=== PATIENT | female | born 1935 | race Caucasian/White ===

== ENCOUNTER 2018-11-14 15:54 | Emergency (ER) | payer MEDICARE, SELFPAY ==
[2018-11-14 15:56] VITALS: BP 216/90; PULSE 85; RESP 17; TEMP 36.7; O2SAT 99; BMI 28.1
--- NOTE | 2018-11-14 16:18 | EKG12_ITS ---
Test Reason : HYPERTENSON Blood Pressure : / mmHG Vent. Rate : 073 BPM Atrial Rate : 073 BPM P-R Int : 182 ms QRS Dur : 074 ms QT Int : 374 ms P-R-T Axes : 052 008 035 degrees QTc Int : 412 ms Normal sinus rhythm Nonspecific ST abnormality Abnormal ECG Confirmed by CECILIO ISIDRO ([id number]), brands editor YOKO BONILLA ([id number]) on 11/15/2018 1:27:44 PM Referred By: KRISTAN Confirmed By:CECILIO ISIDRO
--- NOTE | 2018-11-14 16:19 | ED.DCSUM_ITS ---
History of Present Illness Chief Complaint: Hypertension Informant: Patient Onset: Weeks - 2 Narrative: Referred from PCP office for elevated blood pressure, high as 237/94 in the office. Multiple checks over 220 systolic over 80s. Reports today's visit for his recheck blood pressure, seen 2 weeks ago noted blood pressures elevated. She is on 50 mg twice daily metoprolol for history of A. fib, she had losartan 100mg started 2 weeks ago she has been taking daily. No recent vomiting or diarrhea. States over the past 2 weeks noted mild twinges in her chest. Denies specific pain. No dyspnea. No headache. Reports 3 years ago a similar elevation in blood pressure, she reports in them have an UT in the evening when she developed back pain and then chest pain. She has history of 3 stents placed in [place]. Also reports magnesium was added couple weeks ago due to cramping in the legs. Prior similar symptoms: Yes Past Medical History - Allergies and Home Meds Allergies/Adverse Reactions: Allergies codeine Adverse Reaction (Verified 11/14/18 15:55) Nausea lisinopril Adverse Reaction (Verified 11/14/18 15:55) Other Primary Care Physician: Whitney Quarles MD [Primary Care Provider] - Surgical History: - - PCI x 3, Hysterectomy, BL JAYSHREE for cysts, Appendectomy, Recent nasal surgery/cauterization. Smoking Status: Former smoker - Family History Maternal Family History: Reports: Diabetes, Heart Disease Paternal Family History: Reports: Diabetes, Heart Disease, Hypertension Review of Systems General: Denies: Chills, Fever, Sweats Eyes: Denies: Visual changes - bilaterally, Diplopia ENT: Denies: Rhinorrhea, Sore throat Cardiovascular: Denies: Chest pain, Palpitations Respiratory: Denies: Dyspnea, Cough, Dyspnea on exertion Gastrointestinal: Denies: Abdominal pain, Nausea, Vomiting, Diarrhea, Melena, Hematochezia Genitourinary: Denies: Dysuria, Hematuria, Frequency Musculoskeletal: Denies: Back pain, Extremity Pain Skin: Denies: Rash, Wounds Neurological: Denies: Headache, Weakness, Numbness Physical Exam Vital Signs/Narrative: Vital Signs Temp Pulse Resp BP Pulse Ox 11/14/18 15:56 98.0 F 85 17 216/90 H 99 Inital Vital Signs reviewed: Yes General: Well nourished, Well developed, No Acute Distress Head: Normocephalic, Atraumatic Eyes: Perrl, EOMI ENT: Moist mucous membranes, No rhinorrhea Neck: Supple, Nontender Cardiovascular: Regular rate, Regular rhythm, No murmurs Respiratory: No distress, CTA bilaterally, Chest nontender Abdomen: Soft, Nontender, Nondistended, Normal bowel sounds Back: Nontender, Normal Inspection Extremities: Nontender, No edema Skin: Normal color, No rash Neurological: Alert, Oriented x3, Cranial nerves II-XII grossly intact, Normal Strength, Normal Sensation Psychological: Normal affect, Normal Mood Diagnostic/Tx/Re-eval Chest X-Ray - ED: 1 View, Read by ED Physician, Read by Radiologist, No Acute Disease Abnormal Lab Results 11/14/18 11/14/18 11/14/18 16:29 16:29 17:05 WBC 8.9 RBC 4.22 Hgb 13.0 Hct 40.4 MCV 95.7 MCH 30.8 MCHC 32.2 RDW 13.8 RDW Differential 48.2 H Plt Count 214 MPV 11.3 Immature Gran % (Auto) 0.100 Neut % (Auto) 52.1 Lymph % (Auto) 36.7 [place] % (Auto) 8.0 Eos % (Auto) 2.9 Baso % (Auto) 0.2 Absolute Neuts (auto) 4.7 Absolute Lymphs (auto) 3.27 Total Counted Not Reportable Sodium 139 Potassium 3.9 Chloride 106 Carbon Dioxide 27.0 Anion Gap 6 BUN 22 H Creatinine 1.55 H Estim Creat Clear Calc 20.75 Est GFR (MDRD) Af Amer 41 L Est GFR (MDRD) Non-Af 34 L BUN/Creatinine Ratio 14.2 Glucose 127 H Calcium 9.1 Magnesium 2.0 Troponin I < 0.015 Urine Color Straw Urine Clarity Clear Urine pH 8.0 Ur Specific [place] 1.010 Urine Protein 30 H Urine Glucose (UA) Normal Urine Ketones Negative Urine Occult Blood Negative Urine Nitrite Negative Urine Bilirubin Negative Urine Urobilinogen Normal Ur Leukocyte Esterase Negative Urine RBC 0 SEEN Urine WBC 0-5 SEEN Ur Squamous Epith Cells 0 SEEN Urine Bacteria 0 SEEN Urine Mucus 0 SEEN - EKG Initial EKG Interpretation: Sinus Rhythm - Sinus rate of 73. No ST changes. Nonspecific T wave inversion in lead III. - Medical Decision Making Patient currently asymptomatic. During my eval blood pressure was 240/90. Currently meeting accelerated hypertension. Work-up initiated to rule out any hypertensive emergency. She will be given labetalol IV for elevated blood pressure. With IV blood pressure medications, blood pressure slowly trended down, initial evaluation at 1735 was 190/76, continued checking with down to 169/71, then 175/75. Creatinine returned at 1.55, last creatinine in the system was 3 years ago 0.94. Urine no slight proteins. Normal hemoglobin, negative chest x-ray. Patient remains asymptomatic. Patient blood pressure improving, however creatinine at 1.55, losartan will be contraindicated at this time, unclear of her baseline due to no labs in the system she reports that it is performed as an outpatient. Discussed possibility that medication is not working due to her creatinine. She responded well to the beta-mia, she has been on her metoprolol up to 100 mg in the past however decreased due to losing weight. Her heart rate is in the 80s. However with her trending down blood pressure now in the 175/75, plan was to increase her metoprolol to 75 mg twice daily. She will likely need to go up to 100 mg however due to acute elevated blood pressure, I do not want to aggressively drop her blood pressure at this point. She has an appointment in 3 days with office. There was multiple calls out to covering physician to try to update plan of care however no callback. Patient will keep her follow-up in 3 days. 1929: Prior to discharging the patient, Dr. Shen did return call. Update on the findings. She reports in March last year creatinine was 0.94. This likely from decreased oral intake. Patient will increase her oral intake. She agrees with plan of care of stopping her losartan. She will go up on her metoprolol to 75 mg twice daily. ED Disposition - Plan for ED Patient: Disposition: Home or Assisted Living Diagnosis: Hypertension Instructions: HYPERTENSION, Established Prescriptions: Metoprolol Tartrate 75 mg PO BID #30 tablet Referrals: Whitney Quarles MD [Primary Care Provider] - Keep [place] appointment Additional Instructions: Creatinine 1.55 today. Recheck by your office on your visit. Go up on your met oprolol to 75 mg twice a day. You may split your other half to take a total of 75 mg at this time. Keep your appointment in 3 days. I did discuss with Dr. Tal[place]as your plan of care. Increase your oral hydration at home. Blood pressure systolic 220 over 90s on arrival, after labetalol, now down to 175/75.
--- NOTE | 2018-11-14 16:25 | RAD_ITS ---
STUDY: X-RAY CHEST REASON FOR EXAM: Female, 83 years old. Hypertension TECHNIQUE: Frontal view of the chest COMPARISON: 06/20/2015 FINDINGS: The lungs are clear. There are no pleural effusions. There is no pneumothorax. The heart is normal in size. The visualized osseous structures are within normal limits. RAD/Chest 1 View (Portable) IMPRESSION: No acute thoracic pathology. Electronically Signed: Solo Cueva, at 16:49 EDT Tel , Service support ,
[2018-11-14 16:57] LABS: Anion Gap 6 (5-15); BUN 22 mg/dL (7-18); BUN/Creat Ratio 14.2 RATIO (10-20); Calcium,Total 9.1 mg/dL (8.5-10.1); Chloride 106 mmol/L (98-107); Creatinine, Serum 1.55 mg/dL (0.55-1.02); EST Glomerular Filtration Rate 34 mL/min (>60); Est Glom Filt Rate - Afr Amer 41 mL/min (>60); Estimated Creatinine Clearance 20.75 ml/min; Glucose 127 mg/dL (74-106); Potassium 3.9 mmol/L (3.5-5.1); Sodium Level 139 mmol/L (136-145)
[2018-11-14 17:16] VITALS: BP 212/72; PULSE 90; RESP 19; O2SAT 99
[2018-11-14 17:16] LABS: Bacteria 0 SEEN /hpf (None Seen); Mucous, Urine 0 SEEN /hpf (<or=2+); Red Blood Cells-Urine 0 SEEN /hpf (0-5); Squamous Epithelial Cells - UA 0 SEEN /hpf (5-10)
[2018-11-14 17:38] VITALS: BP 190/76; PULSE 80; RESP 13; O2SAT 98
[2018-11-14 17:42] LABS: Color, Urine Straw (Yellow); Glucose, Dipstick Normal (Normal); Ketone-Dipstick Negative (Negative); Leukocyte Esterase-Dipstick Negative /ul (Negative); Nitrite-Dipstick Negative (Negative); Occult Blood-Urine Negative /ul (Negative); Protein-Dipstick 30 mg/dl (Negative); Urine Bilirubin Dipstick Negative (Negative); Urine Clarity Clear (Clear); Urine Urobilinogen Normal (Normal)
[2018-11-14 18:00] LABS: White Blood Cells 0-5 SEEN /hpf (0-5)
--- NOTE | 2018-11-14 18:15 | CASEMGMT ---
RN CM Assessment Introduced role of RN CM to patient, patient Franki and two daughters at bedside.? Patient is alert, oriented and able?to participate in RN CM Assessment. ?Care providers, pharmacy, and demographics verified. Presentation: Referred from PCP office for elevated BP, as high as 237/94 in office. C/o past two weeks with twinges in chest. Re-Admit: No Barriers/Issues: None PCP: Whitney Quarles Specialists: ENT- Dr Nava, Cardio- Was seeing Dr Whipple, [facility] will need to establish a new [facility]. Preferred Pharmacy: [facility] Insurance: [employer] Benefit:?Yes LNOK: Franki Sweet LW/HPOA: [facility] has both HPOA & LW, HPOA- Franki Sweet Living Arrangements:?Lives with her in a SS Home, 1 step to enter home. ADL?s: Independent with ambulation and ADL's Transportation: Patient drives, drove self to the hospital and plans on driving on [place]. Family able to transport home if needed. DME: None HHC: None SNF: None Goal: Home, does not think will have any needs. Denies any issues,concerns, or questions at this time. DC PLAN: Home with no anticipated needs identified at this time. Cm remains available for any emerging needs. CAROLINA Bagley
[2018-11-14 18:28] LABS: Absolute Lymphocyte Count 3.27 X10^3/ul (0.83-4.51); Absolute Neutrophil Count 4.7 X10^3/uL (2.0-7.7); Basophil# 0.02 X10^3/uL; Basophil% 0.2 % (0-1); Eosinophil# 0.26 X10^3/uL; Eosinophils% 2.9 % (0-5); Hematocrit 40.4 % (37-47); Lymphocyte # 3.27 X10^3/ul (4.0); Lymphocyte % 36.7 % (19-41); Mean Corp Hgb Conc 32.2 g/gl (32-36); Mean Corpuscular Hgb 30.8 pg (27.0-32.0); Mean Corpuscular Volume 95.7 fL (81-99); Mean Platelet Vol. 11.3 fl (6.2-12.0); Monocyte# 0.71 X10^3/uL; Neutrophil # 4.65 X10^3/uL (2.7-7.7); Neutrophil % 52.1 % (47-70); Platelet Count 214 K/mm3 (150-450); RBC Distribution Width CV 13.8 % (11.6-14.6); RBC Distribution Width SD 48.2 fl (35.1-43.9); Red Blood Count 4.22 M/mm3 (4.2-5.4); White Blood Count 8.9 K/mm3 (4.4-11.0)
[2018-11-14 18:32] LABS: POSITIVE COUNT NO; POSITIVE DIFFERENTIAL NO; POSITIVE MORPHOLOGY NO
[2018-11-14 19:18] VITALS: BP 177/75; PULSE 79; RESP 18; O2SAT 92
== END 2018-11-14 19:42 | disposition home or self-care (01) ==
PROVIDERS: Emergency Provider Emergency Medicine; Family Provider Internal Medicine; PCP Internal Medicine
DX: I10 Essential (primary) hypertension (principal); I48.91 Unspecified atrial fibrillation; Z79.82 Long term (current) use of aspirin; Z79.899 Other long term (current) drug therapy; Z87.891 Personal history of nicotine dependence; Z82.49 Family history of ischemic heart disease and other diseases of the circulatory system
CPT/HCPCS: 71045; 80048; 81001; 83735; 84484; 85025; 93005; 96374; 99283; A4216

== ENCOUNTER → 2019-03-06 12:42 | Outpatient (CLI) | payer MEDICARE, SELFPAY ==
[2019-02-08 16:12] VITALS: BMI 28.0
--- NOTE | 2019-03-06 12:44 | ECHOD_ITS ---
Reason For Study: Murmur Procedure This was a 2D Doppler, Color Flow transthoracic echocardiogram. The exam was of adequate technical quality. Exam performed in department. Left Ventricle Normal LV size. Left ventricular systolic function is normal. The estimated ejection fraction is 60 %. Transmitral diastolic flow velocities suggest moderate (stage 2) diastolic dysfunction (pseudonormal pattern). No regional wall motion abnormalities noted. Right Ventricle Normal RV size. Normal systolic function. Atria The left atrium is mildly enlarged. Normal right atrium. No doppler evidence for ASD. Mitral Valve There is mild mitral annular calcification. Mild diffuse mitral valve thickening. Mild-Moderate (1- 2+) mitral valve insufficiency. Tricuspid Valve Normal tricuspid valve. Moderate (2+) tricuspid valve insufficiency. Right ventricular systolic pressure estimated to be 36 mmHg. Aortic Valve Trisinus/trileaflet aortic valve. Mild diffuse aortic valve thickening. Moderate focal aortic valve calcification. Mild aortic stenosis. Trivial aortic valve insufficiency. Pulmonic Valve The pulmonic valve is not well visualized. Mild (1+) pulmonic valve insufficiency. Great Vessels Normal sized aortic root. Pericardium/Pleural No pericardial effusion. MMode/2D Measurements & Calculations LVIDd: 4.0 cm IVSd: 0.98 cm LVOT diam: 2.0 cm LVIDs: 2.0 cm LVPWd: 0.76 cm LVOT area: 3.2 cm2 RVDd: 2.4 cm FS: 50.7 % Ao root diam: 3.3 cm LAV(MOD-bp): 61.1 ml LA A4 area: 20.0 cm2 LA dimension: 3.8 cm LAV(MOD-bp) Indexed: 37.0 ml/m2 LAV(MOD-sp2): 60.1 ml LAV(MOD-sp4): 56.2 ml RA A4 area: 14.2 cm2 Time Measurements MV dec time: 0.24 sec Doppler Measurements & Calculations MV E max pratik: 98.7 cm/sec Lat Peak E' Pratik: 8.4 cm/sec Med Peak E' Pratik: 9.7 cm/sec MV A max pratik: 87.9 cm/sec E/E' lat: 11.8 E/E' med: 10.2 MV E/A: 1.1 MV V2 max: 125.2 cm/sec MV P1/2t max pratik: 126.2 cm/sec Ao V2 max: 168.2 cm/sec MV max P.3 mmHg MV P1/2t: 74.8 msec Ao max P.3 mmHg MV V2 mean: 76.1 cm/sec MV dec slope: 493.9 cm/sec2 DANIEL(V,D): 1.8 cm2 MV mean P.6 mmHg MV V2 VTI: 35.4 cm MVA(P1/2t): 2.9 cm2 AI max pratik: 422.4 cm/sec LV V1 max: 93.8 cm/sec PA V2 max: 83.5 cm/sec AI max P.4 mmHg LV V1 max P.5 mmHg AI dec slope: 277.8 cm/sec2 AI P1/2t: 445.3 msec PI end-d pratik: 124.2 cm/sec TR max pratik: 285.2 cm/sec TR max P.5 mmHg Interpretation Summary Left ventricular systolic function is normal. The estimated ejection fraction is 60 %. The left atrium is mildly enlarged. There is mild mitral annular calcification. Mild diffuse mitral valve thickening. Mild-Moderate (1-2+) mitral valve insufficiency. Moderate (2+) tricuspid valve insufficiency. Mild aortic stenosis. Trivial aortic valve insufficiency. Mild (1+) pulmonic valve insufficiency. Right ventricular systolic pressure estimated to be 36 mmHg. Transmitral diastolic flow velocities suggest diastolic dysfunction (pseudonormal pattern). Ordering Physician: Bryce Esparza Referring Physician: Whitney Quarles Performed By: Shelton Machuca RCS
== END ==
PROVIDERS: Family Provider Internal Medicine; PCP Internal Medicine; Referring Provider Internal Medicine Cardiovascular Disease; Visit Provider Internal Medicine Cardiovascular Disease
DX: I25.10 Atherosclerotic heart disease of native coronary artery without angina pectoris (principal)
CPT/HCPCS: 93306

== ENCOUNTER → 2019-06-20 06:24 | Outpatient (CLI) | payer MEDICARE, SELFPAY ==
[2019-06-12 15:54] VITALS: BMI 28.1
--- NOTE | 2019-06-20 09:49 | STRESSREP_ITS ---
Stress Test Report Date: 06-20-2019 Procedure: Exercise tolerance test/imaging study Indications: Chest pain; status post PCI/SHABNAM Consent: Per the patient Procedure: The patient exercised on a Rene protocol for 3 minutes completing Stage I achieving a peak heart rate of 125 bpm (91 % predicted maximal heart rate) with a peak blood pressure 158/70 mmHg and a peak MET capacity of 4 METs. The baseline ECG demonstrated sinus rhythm; PVCs. The peak exercise ECG demonstrated no obvious ECG changes. There were occasional PVCs pretest, during exercise, and recovery. The functional capacity was considered decreased. There was no complaint of chest discomfort during exercise or recovery. The examination was discontinued secondary to knee discomfort and dyspnea. Impression: 1. Technically adequate (percent predicted maximal heart rate greater than 85%) exercise tolerance test 2. Peak exercise ECG with no obvious ECG changes 3. There were occasional PVCs pretest, during exercise, and recovery 4. Nuclear images pending Myocardial perfusion imaging study: Technique: The patient was injected with 11.3 mCi of technetium 99m Cardiolite and subsequently rest SPECT Cardiolite nuclear imaging was obtained in the horizontal long, vertical long, and short axis views. The patient exercised on a Rene protocol for 3 minutes completing Stage I achieving a peak heart rate of 125 bpm (91 % predicted maximal heart rate) with a peak blood pressure 158/70 mmHg and a peak MET capacity of 4 METs. The patient was injected with a 33.1 mCi of technetium 99m Cardiolite and subsequently stress SPECT Cardiolite nuclear imaging was obtained in the horizontal long, vertical long, and short axis views. A gated Cardiolite study at peak stress was obtained. Interpretation: Rest and stress SPECT Cardiolite nuclear imaging status post realignment, normalization, and attenuation correction, demonstrates the appearance of relative uniform tracer uptake and myocardial perfusion appearing within normal limits. There is end systolic thickening and brightening. The gated Cardiolite study demonstrates myocardial thickening and inward wall motion. The reported LVEF is 86 %. Impression: 1. Rest and stress SPECT Cardiolite nuclear imaging demonstrate relative uniform tracer uptake and myocardial perfusion appearing within normal limits. 2. The gated Cardiolite study reports an LVEF of 86 %. This note was generated with [employer] software. It may contain incorrect words, spelling, and punctuation that were not noted in checking the note before signing.
== END ==
LOC: CVS 06:27
PROVIDERS: PCP Internal Medicine; Referring Provider Nurse Practitioner Family; Visit Provider Nurse Practitioner Family
DX: I25.10 Atherosclerotic heart disease of native coronary artery without angina pectoris (principal); I48.0 Paroxysmal atrial fibrillation; Z95.5 Presence of coronary angioplasty implant and graft; E78.00 Pure hypercholesterolemia, unspecified; I10 Essential (primary) hypertension
CPT/HCPCS: 78452; 93017; A9500

== ENCOUNTER → 2019-08-01 08:49 | Outpatient (CLI) | payer MEDICARE, SELFPAY ==
[2019-06-12 15:54] VITALS: BMI 28.1
== END ==
PROVIDERS: PCP Internal Medicine; Referring Provider Nurse Practitioner Family; Visit Provider Nurse Practitioner Family
DX: R00.2 Palpitations (principal)
CPT/HCPCS: 93225; 93226

== ENCOUNTER 2019-09-26 12:25 | Inpatient (IN) | payer MEDICARE, SELFPAY ==
[2019-06-12 15:54] VITALS: BMI 28.1
[2019-09-26] VITALS (11 sets, daily range): BP systolic 150–172; BP diastolic 64–85; PULSE 66–84; RESP 16–18; TEMP 36.4–37; O2SAT 94–100; BMI 28.9; BMI 28.2
--- NOTE | 2019-09-26 12:39 | CT_ITS ---
STUDY: CT ABDOMEN AND PELVIS WITH CONTRAST REASON FOR EXAM: Female, 84 years old. RIGHT SIDED ABDOMINAL PAIN WRAPPING AROUND TO BACKPAIN. PRIOR HYSTERECTOMY,BUT NOT SURE IF THEY TOOK APPENDIX RADIATION DOSAGE (If Supplied By Facility): CTDIvol = ( 14.22 ) mGy, DLP = ( 1321.50 ) mGycm TECHNIQUE: Transaxial images were obtained from the dome of the diaphragm to the symphysis pubis with oral contrast. Oral and amp; IV GASTROGRAFIN and amp; 100ML ISOVUE 300 was administered. Sagittal and coronal images were reconstructed. Individualized dose optimization techniques were used for this CT. COMPARISON: None. FINDINGS: The visualized lung bases are unremarkable. Coronary artery calcification. Normal liver. Normal gallbladder and extrahepatic biliary system. Normal spleen. Normal pancreas. Normal bilateral adrenal glands. There is a 3.5 cm x 2.3 cm hypodensity in the midportion of the right kidney. This extends into the cortex and medulla. This may represent an old area of infarction or subacute infarction. There is also evidence of a small right renal cyst. There is a 2.1 cm cyst in the lower pole of the right kidney. There is a 1.2 cm cyst in the anterior upper pole of the left kidney. There is a small hiatal hernia. Normal small intestine. There are multiple colonic diverticula consistent with diverticulosis. There is non-visualization of the appendix. There is diffuse atherosclerotic calcification of the abdominal aorta and major visceral vessels, without a demonstrated aneurysm. Mild degree of mural thrombus of the upper abdominal aorta. Normal inferior vena cava. Normal retroperitoneum. Normal urinary bladder. There is absence of the uterus consistent with a prior hysterectomy. Normal abdominal wall. There are mild degenerative changes of the visualized lumbar spine. CT/Abdomen/Pelvis WITH Contrast IMPRESSION: Bilateral renal cysts. 3.5 cm x 2.3 cm hypodensity in the midportion of the left kidney involving both the medulla and cortex. This may represent an element of infarction. Clinical correlation is recommended. Electronically Signed: Saad Salamanca, at 15:17 EDT , Service support ,
--- NOTE | 2019-09-26 12:40 | ED.VISSUMM ---
- ER Visit Summary Date of Service: 09/26/19 Chief Complaint: [Abdominal pain] History of Present Illness: The patient is a 84 F [presents the emergency department with abdominal pain that started yesterday around 4:30 PM. Patient's had nausea with it but no vomiting. Patient's had no appetite. She denies any blood in her stool or black tarry stool. Her last bowel movement was yesterday. She denies urinary symptoms. Patient denies any fever. She is never had pain like this before. Patient states that she was unable to sleep last night secondary the pain. Patient has had prior hysterectomy however no other abdominal surgeries.] Physical Examination: [HEENT-PERRLA, EOMI. Cranial nerves II through XII grossly intact. TMs clear. Mucous membranes moist. No adenopathy. Cardiovascular-regular rate and rhythm without murmur or ectopy Lungs-clear to auscultation, chest wall stable without crepitus or subcu emphysema Abdomen-normoactive bowel sounds, soft. Patient has tenderness to palpation over the right lower quadrant as well as the right upper quadrant. There is guarding. There is no rebound, rigidity, or peritoneal signs. No masses palpated. Extremities-intact ?4, normal range of motion, normal pulses, atraumatic] Test Results: [CBC with differential obtained showed a elevated white blood cell count of 12.4, hemoglobin 14, hematocrit 43, platelet 200. Chemistries unremarkable. LFTs unremarkable other than a minimally elevated AST of 47. CT scan of the abdomen pelvis with IV and p.o. contrast ordered and results are pending] Emergency Department Course and Treatment: [Patient did not want anything for pain in the department. She had an IV line established and normal saline was started.] Treatment Plan: [Patient turned over to evening physician awaiting CT results and final disposition] Disposition: [Pending] Impression: [Abdominal pain] This note was generated with [employer] dictation software. It may contain incorrect words, spelling, and punctuation that were not noted in review of the chart prior to signing ED Disposition - Plan for ED Patient: Referrals: Whitney Quarles MD [Primary Care Provider] -
[2019-09-26] MEDS: 0.9% Normal Saline 1,000 ML 125 ML IV (13:09)
[2019-09-26 13:10] LABS: Absolute Neutrophil Count 7.7 X10^3/uL (2.0-7.7); Basophil# 0.04 X10^3/uL; Basophil% 0.3 % (0-1); Eosinophil# 0.18 X10^3/uL; Eosinophils% 1.5 % (0-5); Hematocrit 43.5 % (37-47); Hemoglobin 14.1 g/dL (12.0-15.0); Lymphocyte % 27.5 % (19-41); Mean Corp Hgb Conc 32.4 g/dL (32-36); Mean Corpuscular Hgb 31.4 pg (27.0-32.0); Mean Corpuscular Volume 96.9 fL (81-99); Mean Platelet Vol. 10.4 fl (6.2-12.0); Monocyte# 1.02 X10^3/uL; Monocyte% 8.2 % (0-10); NRBC Flagged by Analyzer 0 % (0-5); Neutrophil # 7.68 X10^3/uL (2.7-7.7); Neutrophil % 62.1 % (47-70); Platelet Count 200 K/mm3 (150-450); RBC Distribution Width CV 13.3 % (11.6-14.6); RBC Distribution Width SD 47.8 fl (35.1-43.9); Red Blood Count 4.49 M/mm3 (4.2-5.4); White Blood Count 12.4 K/mm3 (4.4-11.0)
[2019-09-26 13:26] LABS: ALB/GLOB Ratio 1.1 RATIO (0.9-2.4); AST(SGOT) 47 U/L (15-37); Alanine Aminotransfer ALT/SGPT 38 U/L (13-56); Albumin, Serum 4.1 g/dL (3.2-5.0); Alkaline Phosphatase 86 U/L (45-117); Anion Gap 6 (5-15); BUN 20 mg/dL (7-18); BUN/Creat Ratio 19.8 RATIO (10-20); Calcium,Total 9.4 mg/dL (8.5-10.1); Chloride 106 mmol/L (98-107); Creatinine, Serum 1.01 mg/dL (0.55-1.02); EST Glomerular Filtration Rate 56 mL/min (>60); Est Glom Filt Rate - Afr Amer 67 mL/min (>60); Estimated Creatinine Clearance 31.29 ml/min; Globulin 3.9 g/dL (2.2-4.2); Glucose 138 mg/dL (74-106); Potassium 3.6 mmol/L (3.5-5.1); Sodium Level 139 mmol/L (136-145)
[2019-09-26 13:33] LABS: Lactic Acid 1.4 mmol/L (0.4-1.9)
[2019-09-26 13:39] LABS: Bacteria 0 SEEN /hpf (None Seen); Mucous, Urine 0 SEEN /hpf (<or=2+); Red Blood Cells-Urine 0 SEEN /hpf (0-5); Squamous Epithelial Cells - UA 0 SEEN /hpf (5-10)
[2019-09-26 13:42] LABS: Color, Urine Yellow (Yellow); Glucose, Dipstick Normal (Normal); Ketone-Dipstick Negative (Negative); Leukocyte Esterase-Dipstick 25 /ul (Negative); Nitrite-Dipstick Negative (Negative); Occult Blood-Urine 10 /ul (Negative); Protein-Dipstick 30 mg/dl (Negative); Specific Gravity, Urine 1.005 (1.002-1.030); Urine Bilirubin Dipstick Negative (Negative); Urine Clarity Clear (Clear); Urine Urobilinogen Normal (Normal)
[2019-09-26 13:55] LABS: White Blood Cells 0-5 SEEN /hpf (0-5)
--- NOTE | 2019-09-26 15:04 | EKG12_ITS ---
Test Reason : Blood Pressure : / mmHG Vent. Rate : 081 BPM Atrial Rate : 081 BPM P-R Int : 176 ms QRS Dur : 078 ms QT Int : 382 ms P-R-T Axes : -17 008 022 degrees QTc Int : 443 ms Normal sinus rhythm Abnormal ECG Confirmed by CECILIO ISIDRO ([id number]), editor continuity and script JOHN BAZAN ([id number] on 10/01/2019 2:49:16 PM Referred By: JACKY Confirmed By:CECILIO ISIDRO
[2019-09-26 15:38] LABS: Partial Thromboplast Time 28.5 Seconds (24.1-36.2)
[2019-09-26] MEDS: Ondansetron 4 MG/2 ML Vial IV (15:44)
[2019-09-26] MEDS: Morphine 2 MG/ML Syringe IV (15:44)
--- NOTE | 2019-09-26 16:25 | HP.PCM_ITS ---
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 The patient went to pickler helper medication at the pharmacy last night and suddenly developed severe cramping abdominal pain while sitting in the car, along with right flank pain. She had this pain persistently through the night and only slept 1 hour due to pain. The pain continued so she came to the ER. In the ER she was found to have an aortic mural thrombus and right renal infarct. The patient denies hx of blood clots. She currently has no palpitations or chest pain. EKG shows NSR. 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 (Chronic) Pure hypercholesterolemia (Chronic) Diabetes mellitus type II, controlled (Chronic) PAF (paroxysmal atrial fibrillation) (Chronic) Medical History: Medical History (Last Reviewed 02/08/19 @ 16:18 by Deena Magana) Presence of stent in coronary artery (Chronic) Onset Date: ~06/20/15 Z95.5 PTCA/SHABNAM x1 to RCA and PTCA/SHABNAM x2 to LCX 06/20/15 @ [facility] Essential hypertension (Chronic) I10 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 (Chronic) I25.10 Pure hypercholesterolemia (Chronic) E78.00 Diabetes mellitus type II, controlled (Chronic) E11.9 PAF (paroxysmal atrial fibrillation) (Chronic) I48.0 History of basal cell carcinoma Z85.828 Left Nasal sidewall History of non-ST elevation myocardial infarction (NSTEMI) I25.2 Diverticulosis K57.90 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 [Ecotrin] 81 mg PO DAILY@0800 11/14/18 Atorvastatin Calcium 80 mg PO QHS 11/14/18 Magnesium Gluconate 27 mg PO DAILY 11/14/18 Vit C/Vit E AC/Lut/Copper/Zinc 1 cap PO BID 11/14/18 [Preservision Lutein Softgel] metoprolol tartrate 100 mg tablet 100 mg PO BID tab 01/31/19 losartan 25 mg tablet 25 mg PO DAILY #30 tab 06/05/19 amlodipine 10 mg tablet 10 mg PO DAILY #90 tab 08/24/19 Cholecalciferol (VIT D3) [Vitamin 1,000 unit PO DAILY 09/26/19 D] Cyanocobalamin (Vitamin B-12) 1,000 mcg PO DAILY 09/26/19 [B-12] Sulfasalazine 500 mg PO Q6H PRN PRN 09/26/19 Surgical History: Surgical History (Last Reviewed 02/08/19 @ 16:18 by Deena Magana) Presence of coronary angioplasty implant and graft Onset Date: ~06/20/15 Z95 .5 PTCA/SHABNAM x1 to RCA and PTCA/SHABNAM x2 to LCX 06/20/15 @ [facility] History of bilateral oophorectomy Z90.722 History of repair of rotator cuff Z98.890 History of total hysterectomy Z90.710 Surgical History: - - PCI x 3, Hysterectomy, BL JAYSHREE for cysts, Appendectomy, Recent nasal surgery/cauterization. 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 Lives: Spouse/ Significant Other Smoking Status: Never smoker Tobacco Use: Non-smoker Alcohol: None Drugs: None - *Family History Maternal Family History: Family History (Last Reviewed 09/26/19 @ 16:41 by OLE Clemente) Mother Hypertension Heart disease Diabetes Father Diabetes Hypertension Sister Hypertension Diabetes Sister Diabetes Hypertension Sister Diabetes Hypertension Sister Diabetes Hypertension History Items: Diabetes, Heart Disease Paternal Family History: Family History (Last Reviewed 09/26/19 @ 16:41 by OLE Clemente) Mother Hypertension Heart disease Diabetes Father Diabetes Hypertension Sister Hypertension Diabetes Sister Diabetes Hypertension Sister Diabetes Hypertension Sister Diabetes Hypertension History Items: Diabetes, Heart Disease, Hypertension Review of Systems Constitutional: Denies: Chills, Fever, Weight Change HEENT: Denies: Head Aches, Sinus Congestion, Sinus Drainage Cardiovascular: Denies: Chest Pain, Edema, Light Headedness, Palpitations, Syncope Respiratory: Denies: Cough, Shortness of Breath, Shortness of breath at rest, Sputum production Gastrointestinal: Reports: Abdominal Pain, Nausea. Denies: Diarrhea, Vomiting Genitourinary: Denies: Dysuria Musculoskeletal: Denies: Joint Pain, Joint Tenderness Skin: Denies: Rash, Wounds Neurological: Denies: Numbness, Tingling, Focal weakness Psychiatric: Denies: Anxiety, Depression, Homicidal Ideations, Suicidal Ideations Hematologic/ Lymphatic: Denies: Easy Bruising, Easy Bleeding VTE Information - Inpt Only VTE Present on Admission: No VTE Mechan Device Prophylaxis: None VTE Pharm Prophylaxis ordered?: Yes Patient Problems: Active and Suspected Problems (Last Reviewed 02/08/19 @ 16:18 by Deena Magana) Renal infarct (Acute) Aortic mural thrombus (Acute) - Physical Exam Vitals/I&O's: Vital Signs Temp Pulse Resp BP Pulse Ox 97.6 F L 71 18 158/82 H 98 09/26/19 12:26 09/26/19 14:25 09/26/19 14:25 09/26/19 14:25 09/26/19 14:25 Oxygen Delivery Method Room Air Weight: 153 lb 0.013 oz Body Mass Index (BMI) 28.9 General: Alert, Oriented x3, Cooperative HEENT: Atraumatic, PERRLA, EOMI, Normocephalic Neck: Supple, No JVD, Negative Carotid Bruits Lungs: Clear to auscultation, Normal air movement Cardiovascular: Regular rate, No murmurs Abdomen: Bowel Sounds Present, Soft, Tender - diffuse tenderness, mild, no guarding Extremities: No edema, Capillary Refill Less than 3 Seconds Skin: No rashes, No breakdown Musculoskeletal: No Tenderness to Palpation of Joints or Extremities Neurological: Cranial nerves II-XII grossly intact Psych/Mental Status: Normal Affect, Appropriate, Alert and oriented to time, tomasa ce, person, mood and affect Laboratory Results 09/26/19 13:00: WBC 12.4 H, RBC 4.49, Hgb 14.1, Hct 43.5, MCV 96.9, MCH 31.4, MCHC 32.4, RDW Std Deviation 47.8 H, RDW Coeff of Yoli 13.3, Plt Count 200, MPV 10.4, Immature Gran % (Auto) 0.400, Neut % (Auto) 62.1, Lymph % (Auto) 27.5, [place] % (Auto) 8.2, Eos % (Auto) 1.5, Baso % (Auto) 0.3, Absolute Neuts (auto) 7.7, Absolute Lymphs (auto) 3.40, Nucleated RBC % 0 09/26/19 13:00: Sodium 139, Potassium 3.6, Chloride 106, Carbon Dioxide 27.0, Anion Gap 6, BUN 20 H, Creatinine 1.01, Estim Creat Clear Calc 31.29, Est GFR (MDRD) Af Amer 67, Est GFR (MDRD) Non-Af 56 L, BUN/Creatinine Ratio 19.8, Glucose 138 H, Calcium 9.4, Total Bilirubin 0.70, AST 47 H, ALT 38, Alkaline Phosphatase 86, Total Protein 8.0, Albumin 4.1, Globulin 3.9, Albumin/Globulin Ratio 1.1 09/26/19 13:00: Lactic Acid 1.4 09/26/19 13:00: PT 13.0, INR 1.0, APTT 28.5 09/26/19 13:25: Urine Color Yellow, Urine Clarity Clear, Urine pH 7.0, Ur Specific [place] 1.005, Urine Protein 30 H, Urine Glucose (UA) Normal, Urine Ketones Negative, Urine Occult Blood 10 H, Urine Nitrite Negative, Urine Bilirubin Negative, Urine Urobilinogen Normal, Ur Leukocyte Esterase 25 H, Urine RBC 0 SEEN, Urine WBC 0-5 SEEN, Ur Squamous Epith Cells 0 SEEN, Urine Bacteria 0 SEEN, Urine Mucus 0 SEEN Current Medications Sodium Chloride () 1,000 mls @ 125 mls/hr IV .Q8H REJI Last Admin: 09/26/19 13:09 Dose: 125 mls/hr Documented by: Assessment/Plan All Active Problems (Last Reviewed 02/08/19 @ 16:18 by Deena Magana) Renal infarct (Acute) Aortic mural thrombus (Acute) 1. Acute right renal infarct, abdominal aortic mural thrombus - renal infarct per CT. upper abdominal aortic mural thrombus seen on ct as well. start lovenox BID. Hx pAfib, EKG currently with NSR. Not on OAC 2/2 hx of rectal bleed on warfarin, and hx of severe epistaxis on plavix. Monitor for bleeding. hold aspirin. Plan to transition to eliquis in AM. Renal function is good at this point, repeat BMP in am. Obtain Echo in AM. 2. CAD with prior stents - as above hold aspirin, does not take plavix due to severe epistaxis while on it in past. continue . pt follows Dr. Esparza.Continue atorvastatin, metoprolol, losartan. 3. pAfib - currently NSR. continue metoprolol. otherwise, as per #1. 4. HTN - markedly elevated in ER. Trend. Optimize pain control. 5. Hx DMt2 - she is diet controlled only. SSI while here if needed. DVT ppx: lovenox DC planning: pt is reluctant to take blood thinners with her bleeding hx. explained risk of stroke and other ischemic events due to emboli. pt generally agreeable to eliquis. This patient was seen by Georgi Mcmahon PA-C under the supervision of Dr. Shelton. 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 (Chronic) I25.10 Pure hypercholesterolemia (Chronic) E78.00 Diabetes mellitus type II, controlled (Chronic) E11.9 PAF (paroxysmal atrial fibrillation) (Chronic) I48.0 History of basal cell carcinoma Z85.828 Left Nasal sidewall History of non-ST elevation myocardial infarction (NSTEMI) I25.2 Diverticulosis K57.90 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 Macular degeneration H35.30 Allergies codeine Adverse Reaction (Verified 09/26/19 12:26) Nausea lisinopril Adverse Reaction (Verified 09/26/19 12:26) Cough Surgical History: Surgical History (Last Reviewed 02/08/19 @ 16:18 by Deena Magana) Presence of coronary angioplasty implant and graft Onset Date: ~06/20/15 Z95.5 PTCA/SHABNAM x1 to RCA and PTCA/SHABNAM x2 to LCX 06/20/15 @ [facility] History of bilateral oophorectomy Z90.722 History of repair of rotator cuff Z98.890 History of total hysterectomy Z90.710 - *Family History Maternal Family History: Family History (Last Reviewed 09/26/19 @ 16:41 by OLE Clemente) Mother Hypertension Heart disease Diabetes Father Diabetes Hypertension Sister Hypertension Diabetes Sister Diabetes Hypertension Sister Diabetes Hypertension Sister Diabetes Hypertension Paternal Family History: Family History (Last Reviewed 09/26/19 @ 16:41 by OLE Clemente) Mother Hypertension Heart disease Diabetes Father Diabetes Hypertension Sister Hypertension Diabetes Sister Diabetes Hypertension Sister Diabetes Hypertension Sister Diabetes Hypertension - Physical Exam Vitals/I&O's: Vital Signs Temp Pulse Resp BP Pulse Ox 97.6 F L 84 16 172/72 H 98 09/26/19 16:09 09/26/19 16:09 09/26/19 16:09 09/26/19 16:09 09/26/19 16:09 Oxygen Delivery Method Room Air Weight: 149 lb 4.047 oz Body Mass Index (BMI) 28.2 Laboratory Results 09/26/19 13:00: WBC 12.4 H, RBC 4.49, Hgb 14.1, Hct 43.5, MCV 96.9, MCH 31.4, MCHC 32.4, RDW Std Deviation 47.8 H, RDW Coeff of Yoli 13.3, Plt Count 200, MPV 10.4, Immature Gran % (Auto) 0.400, Neut % (Auto) 62.1, Lymph % (Auto) 27.5, [place] % (Auto) 8.2, Eos % (Auto) 1.5, Baso % (Auto) 0.3, Absolute Neuts (auto) 7.7, Absolute Lymphs (auto) 3.40, Nucleated RBC % 0 09/26/19 13:00: Sodium 139, Potassium 3.6, Chloride 106, Carbon Dioxide 27.0, Anion Gap 6, BUN 20 H, Creatinine 1.01, Estim Creat Clear Calc 31.29, Est GFR (MDRD) Af Amer 67, Est GFR (MDRD) Non-Af 56 L, BUN/Creatinine Ratio 19.8, Glucose 138 H, Calcium 9.4, Total Bilirubin 0.70, AST 47 H, ALT 38, Alkaline Phosphatase 86, Total Protein 8.0, Albumin 4.1, Globulin 3.9, Albumin/Globulin Ratio 1.1 09/26/19 13:00: Lactic Acid 1.4 09/26/19 13:00: PT 13.0, INR 1.0, APTT 28.5 09/26/19 13:25: Urine Color Yellow, Urine Clarity Clear, Urine pH 7.0, Ur Specific [place] 1.005, Urine Protein 30 H, Urine Glucose (UA) Normal, Urine Ketones Negative, Urine Occult Blood 10 H, Urine Nitrite Negative, Urine Bilirubin Negative, Urine Urobilinogen Normal, Ur Leukocyte Esterase 25 H, Urine RBC 0 SEEN, Urine WBC 0-5 SEEN, Ur Squamous Epith Cells 0 SEEN, Urine Bacteria 0 SEEN, Urine Mucus 0 SEEN Current Medications Sodium Chloride () 1,000 mls @ 125 mls/hr IV .Q8H REJI Last Admin: 09/26/19 13:09 Dose: 125 mls/hr Documented by: Assessment/Plan Hospitalist note: I am seeing this patient in conjunction with Georgi Mcmahon. I independently seen and examined the patient. History and physical, laboratory data and imaging studies reviewed and I agree with the above admission and treatment plan. Patient presented to the emergency room because of abdominal pain that started all of a sudden yesterday around 4:30 PM, mid abdominal and right flank, described as cramping, was about 7 out of 10 in severity, eased up after several minutes but was constant since then, associated with nausea and without aggravating or relieving factors. She denied fever or chills. She denied urinary symptoms, no dysuria or hematuria. She does have a history of paroxysmal atrial fibrillation, was on Coumadin for couple of years back in 2016 but was discontinued because of GI bleed and epistaxis. In the emergency department, her blood pressure was elevated, other vital signs were stable. Routine blood work was remarkable for mild leukocytosis, otherwise normal. LFT was unremarkable. Lactic acid was normal. Urinalysis showed no evidence of i nfection. CT scan abdomen and pelvis with contrast revealed 3.5 cm x 2.3 cm hypodensity in the midportion of the right kidney likely due to renal infarct and also revealed mild degree of mural thrombus of the upper abdominal aorta. - Physical Exam General: Alert, Oriented x3, Cooperative, No apparent distress. HEENT: Atraumatic, PERRLA, EOMI. Neck: Supple, No JVD, Negative Carotid Bruits, Trachea Midline, Thyroid Normal. Lungs: Clear to auscultation, Normal air movement, No rhonchi, No wheeze, No rales. Cardiovascular: Regular rate, Regular Rhythm, Normal S1, Normal S2, PMI Normal. Abdomen: Bowel Sounds Present, Soft, minimal upper abdominal and right flank tenderness, no guarding or rigidity, Non-Distended, No Hepato-splenomegaly. Extremities: No clubbing, No cyanosis, No edema Skin: No rashes, No breakdown Neurological: Cranial nerves are intact, neuro grossly intact Assessment and plan: #1 acute right renal infarct/upper abdominal mural thrombus: Likely thromboembolic secondary to paroxysmal atrial fibrillation. Patient was on anticoagulation back on 2015, was discontinued because of GI bleed and epistaxis. Currently, she is only on aspirin. EKG revealed normal sinus rhyt hm, no acute changes. [facility], start therapeutic Lovenox twice daily, 2D echocardiogram, IV fluids, IV morphine PRN for pain, OxyIR PRN for pain, IV antiemetics as needed, repeat CBC and BMP tomorrow morning. After discussion with the patient about the option of anticoagulation, patient is generally in agreement to start Eliquis by tomorrow. #2 hypertension: Elevated, likely because of pain. Plan to continue losartan, metoprolol and Norvasc, start IV adenosine PRN. #3 other chronic medical problems: Stable, continue current medications as above. This note was generated with [employer] dictation software. It may contain incorrect words, spelling, and punctuation that were not noted in checking the note before signing. Inpatient E&M: 47041 Init Hosp L3
[2019-09-26] MEDS: Enoxaparin 80 MG/0.8 ML Syringe 70 MG SC (16:44)
--- NOTE | 2019-09-26 17:36 | NURSING ---
report called to LILIAN Lowe on PCU for transfer.
--- NOTE | 2019-09-26 17:54 | ECHOD_ITS ---
Reason For Study: AFIB/FLUTTER Procedure This was a 2D Doppler, Color Flow transthoracic echocardiogram. Exam performed portable in patient room. Left Ventricle Normal LV size. The estimated ejection fraction is 65 %. Stage 2 diastolic dysfunction. No regional wall motion abnormalities noted. Right Ventricle Normal RV size. Normal systolic function. Atria The left atrium is mildly enlarged. Normal right atrium. No doppler evidence for ASD. Mitral Valve There is no mitral valve stenosis. Trivial mitral valve insufficiency. Tricuspid Valve There is no tricuspid stenosis. Mild tricuspid valve insufficiency. Pulmonary artery systolic pressure is 35-40 mmHg. Aortic Valve Trisinus/trileaflet aortic valve. Moderate diffuse aortic valve thickening. Mild aortic stenosis. No aortic valve insufficiency. Pulmonic Valve There is no pulmonic valvular stenosis. Trivial pulmonic valve insufficiency. Great Vessels Normal aortic root. Pericardium/Pleural No pericardial effusion. MMode/2D Measurements & Calculations LVIDd: 4.4 cm IVSd: 0.94 cm LVOT diam: 2.0 cm LVIDs: 2.4 cm LVPWd: 0.75 cm LVOT area: 3.1 cm2 RVDd: 3.1 cm FS: 45.8 % Ao root diam: 2.9 cm LAV(MOD-bp): 68.5 ml LA A4 area: 21.7 cm2 LAV(MOD-bp) Indexed: 41.1 ml/m2 LAV(MOD-sp2): 68.4 ml LAV(MOD-sp4): 68.5 ml LA dimension(2D): 3.8 cm RA A4 area: 13.7 cm2 Time Measurements MV dec time: 0.23 sec Doppler Measurements & Calculations MV E max pratik: 101.8 cm/sec Lat Peak E' Pratik: 7.7 cm/sec Med Peak E' Pratik: 8.0 cm/sec MV A max pratik: 111.2 cm/sec E/E' lat: 13.3 E/E' med: 12.7 MV E/A: 0.92 Ao V2 max: 210.8 cm/sec LV V1 max: 108.3 cm/sec SV(LVOT): 73.9 ml Ao max P.8 mmHg LV V1 max P.7 mmHg Ao V2 mean: 154.0 cm/sec LV V1 mean P.8 mmHg Ao mean P.3 mmHg LV V1 mean: 79.8 cm/sec Ao V2 VTI: 46.0 cm LV V1 VTI: 23.8 cm DANIEL(I,D): 1.6 cm2 DANIEL(V,D): 1.6 cm2 PA V2 max: 105.5 cm/sec PI end-d pratik: 120.5 cm/sec TR max pratik: 284.5 cm/sec TR max P.4 mmHg Interpretation Summary The estimated ejection fraction is 65 %. Stage 2 diastolic dysfunction. Trivial mitral valve insufficiency. Mild tricuspid valve insufficiency. Moderate diffuse aortic valve thickening. Mild aortic stenosis. The left atrium is mildly enlarged. Ordering Physician: Dk Shelton Referring Physician: Whitney Quarles Performed By: Laura Reina, MADELINE, RVT
[2019-09-26] MEDS: 0.9% Normal Saline 1,000 ML 75 ML IV (18:00)
[2019-09-26] MEDS: Metoprolol Tartrate 100 MG Tablet PO (21:38)
[2019-09-26] MEDS: Atorvastatin Calcium 80 MG Tablet PO (21:38)
[2019-09-27] VITALS (11 sets, daily range): BP systolic 117–148; BP diastolic 54–73; PULSE 66–86; RESP 14–18; TEMP 36.6–37.4; O2SAT 93–96
[2019-09-27] MEDS: 0.9% Normal Saline 1,000 ML 75 ML IV (06:34)
[2019-09-27] MEDS: Enoxaparin 80 MG/0.8 ML Syringe 70 MG SC (06:34)
[2019-09-27 06:54] LABS: Absolute Neutrophil Count 6.6 X10^3/uL (2.0-7.7); Basophil# 0.02 X10^3/uL; Basophil% 0.2 % (0-1); Eosinophil# 0.13 X10^3/uL; Eosinophils% 1.3 % (0-5); Hemoglobin 11.6 g/dL (12.0-15.0); Lymphocyte % 24.1 % (19-41); Mean Corp Hgb Conc 31.4 g/dL (32-36); Mean Corpuscular Hgb 30.9 pg (27.0-32.0); Mean Corpuscular Volume 98.4 fL (81-99); Mean Platelet Vol. 10.5 fl (6.2-12.0); Monocyte# 1.12 X10^3/uL; Monocyte% 10.8 % (0-10); NRBC Flagged by Analyzer 0 % (0-5); Neutrophil # 6.56 X10^3/uL (2.7-7.7); Neutrophil % 63.2 % (47-70); Platelet Count 165 K/mm3 (150-450); RBC Distribution Width CV 13.7 % (11.6-14.6); RBC Distribution Width SD 49.3 fl (35.1-43.9); Red Blood Count 3.76 M/mm3 (4.2-5.4); White Blood Count 10.4 K/mm3 (4.4-11.0)
[2019-09-27 07:22] LABS: Anion Gap 5 (5-15); BUN 19 mg/dL (7-18); BUN/Creat Ratio 19.5 RATIO (10-20); Calcium,Total 8.4 mg/dL (8.5-10.1); Chloride 109 mmol/L (98-107); Creatinine, Serum 0.97 mg/dL (0.55-1.02); EST Glomerular Filtration Rate 58 mL/min (>60); Est Glom Filt Rate - Afr Amer 70 mL/min (>60); Estimated Creatinine Clearance 32.58 ml/min; Glucose 104 mg/dL (74-106); Potassium 3.6 mmol/L (3.5-5.1); Sodium Level 141 mmol/L (136-145)
--- NOTE | 2019-09-27 07:45 | PCM.PN.HOSP ---
Patient Problems: Active and Suspected Problems (Last Reviewed 02/08/19 @ 16:18 by Deena Magana) Renal infarct (Acute) Aortic mural thrombus (Acute) Vitals/I&O's: Vital Signs Temp Pulse Resp BP Pulse Ox 98 F 68 14 119/55 L 94 09/27/19 03:37 09/27/19 03:37 09/27/19 03:37 09/27/19 03:37 09/27/19 03:37 Oxygen Delivery Method Room Air Weight: 67.7 kg Body Mass Index (BMI) 28.2 Intake and Output for Last 24 Hours 09/25/19 09/26/19 09/27/19 23:59 23:59 23:59 Intake Total 837.92 / 1237.92 1442.5 / 1442.5 Balance 837.92 / 1237.92 1442.5 / 1442.5 Laboratory Results 09/26/19 13:00: WBC 12.4 H, RBC 4.49, Hgb 14.1, Hct 43.5, MCV 96.9, MCH 31.4, MCHC 32.4, RDW Std Deviation 47.8 H, RDW Coeff of Yoli 13.3, Plt Count 200, MPV 10.4, Immature Gran % (Auto) 0.400, Neut % (Auto) 62.1, Lymph % (Auto) 27.5, [place] % (Auto) 8.2, Eos % (Auto) 1.5, Baso % (Auto) 0.3, Absolute Neuts (auto) 7.7, Absolute Lymphs (auto) 3.40, Nucleated RBC % 0 09/26/19 13:00: Sodium 139, Potassium 3.6, Chloride 106, Carbon Dioxide 27.0, Anion Gap 6, BUN 20 H, Creatinine 1.01, Estim Creat Clear Calc 31.29, Est GFR (MDRD) Af Amer 67, Est GFR (MDRD) Non-Af 56 L, BUN/Creatinine Ratio 19.8, Glucose 138 H, Calcium 9.4, Total Bilirubin 0.70, AST 47 H, ALT 38, Alkaline Phosphatase 86, Total Protein 8.0, Albumin 4.1, Globulin 3.9, Albumin/Globulin Ratio 1.1 09/26/19 13:00: Lactic Acid 1.4 09/26/19 13:00: PT 13.0, INR 1.0, APTT 28.5 09/26/19 13:25: Urine Color Yellow, Urine Clarity Clear, Urine pH 7.0, Ur Specific [place] 1.005, Urine Protein 30 H, Urine Glucose (UA) Normal, Urine Ketones Negative, Urine Occult Blood 10 H, Urine Nitrite Negative, Urine Bilirubin Negative, Urine Urobilinogen Normal, Ur Leukocyte Esterase 25 H, Urine RBC 0 SEEN, Urine WBC 0-5 SEEN, Ur Squamous Epith Cells 0 SEEN, Urine Bacteria 0 SEEN, Urine Mucus 0 SEEN 09/27/19 06:20: WBC 10.4, RBC 3.76 L, Hgb 11.6 L, Hct 37.0, MCV 98.4, MCH 30.9, MCHC 31.4 L, RDW Std Deviation 49.3 H, RDW Coeff of [place] 13.7, Plt Count 165, MPV 10.5, Immature Gran % (Auto) 0.400, Neut % (Auto) 63.2, Lymph % (Auto) 24.1, [place] % (Auto) 10.8 H, Eos % (Auto) 1.3, Baso % (Auto) 0.2, Absolute Neuts (auto) 6.6, Absolute Lymphs (auto) 2.50, Nucleated RBC % 0 09/27/19 06:20: Sodium 141, Potassium 3.6, Chloride 109 H, Carbon Dioxide 27.0, Anion Gap 5, BUN 19 H, Creatinine 0.97, Estim Creat Clear Calc 32.58, Est GFR (MDRD) Af Amer 70, Est GFR (MDRD) Non-Af 58 L, BUN/Creatinine Ratio 19.5, Glucose 104, Calcium 8.4 L Current Medications Acetaminophen (Tylenol) 650 mg PO Q6H PRN PRN PRN Reason: Pain Score 1-10/Temp > 100.7 F Amlodipine Besylate (Norvasc) 10 mg PO DAILY [facility] Atorvastatin Calcium (Lipitor) 80 mg PO QHS [facility] Last Admin: 09/26/19 21:38 Dose: 80 mg Documented by: Enoxaparin Sodium (Lovenox) 70 mg SC Q12@0600,1800 [facility] Last Admin: 09/27/19 06:34 Dose: 70 mg Documented by: Hydralazine HCl (Apresoline Iv) 10 mg IV Q8H PRN PRN PRN Reason: for SBP>160 Sodium Chloride () 1,000 mls @ 75 mls/hr IV .[id number] [facility] Stop: 09/27/19 20:33 Last Admin: 09/27/19 06:34 Dose: 75 mls/hr Documented by: Losartan Potassium (Cozaar) 25 mg PO DAILY [facility] Metoprolol Tartrate (Lopressor (Beta Yadira)) 100 mg PO BID [facility] Last Admin: 09/26/19 21:38 Dose: 100 mg Documented by: Morphine Sulfate () 1 - 2 mg IV Q4H PRN PRN PRN Reason: Pain Score 6-10/10 Ondansetron HCl (Zofran) 4 mg IV Q8H PRN PRN PRN Reason: NAUSEA/VOMITING Oxycodone HCl (Oxyir) 5 mg PO Q6H PRN PRN PRN Reason: Pain Score 4-5/10 Senna/Docusate Sodium (Senokot-S, Marguerite-Colace) 2 tablet PO BID PRN PRN PRN Reason: Constipation Zolpidem Tartrate (Ambien (Generic)) 5 mg PO QHS PRN PRN PRN Reason: INSOMNIA Medical Necessity - Tobacco Use Smoking Status: Never smoker Tobacco Use: Non-smoker Assessment/Plan All Active Problems (Last Reviewed 02/08/19 @ 16:18 by Deena Magana) Renal infarct (Acute) Aortic mural thrombus (Acute) Inpatient E&M: 22083 Subs Hosp L2
[2019-09-27] MEDS: Acetaminophen 325 MG Tablet 650 MG PO (09:05)
[2019-09-27] MEDS: amLODIPine 10 MG Tablet PO (09:06)
[2019-09-27] MEDS: Metoprolol Tartrate 100 MG Tablet PO ×2 (09:06→21:11)
[2019-09-27] MEDS: Losartan Potassium 25 MG Tablet PO (09:06)
--- NOTE | 2019-09-27 10:36 | CASEMGMT ---
LILIAN DURAN assessment: Phone interview with patient for initial transition planning/care coordination assessment. LILIAN DURAN introduced self and role at [facility], pt voices understanding and consents to assessment at this time. Pt is A/Ox4 at this time and answers all questions appropriately at this time. Care providers, pharmacy, and demographics verified at this time. Presentation: Abd pain and nausea since 1700 day prior Admitting dx: Left renal infarct, aortic mural thrombus PCP: Willam Specialists: Isaias cardio Victor Manuel Pharmacy: [facility] Insurance: [facility] Prescription Benefit: AnthR Living Will/HPOA: Pt states has LW/HPOA and is aware that they are not on file at [facility] at this time. Pt states that her daughter, Tasha Marley, is HPOA. LNOK: Franki Sweet, ; Tasha Marley, daughter Living Arrangements: Pt states lives with in 1 story home with 2 steps in and states no concerns at home at this time. Pt states is independent with ADL's and states cares for her at home. Transportation: Pt states drives self and states no transportation concerns at this time. DME/HHC: Pt states no current DME or need for any at this time. Pt states no hx of HHC or SNF in the past. Pt states no concerns with going home at time of discharge. Pt states is retired. Pt states does not smoke or drink ETOH. Pt states no further concerns/needs at this time. CM to follow for Eliquis co-pay and for any further discharge planning/needs. Advised pt to ask for CM if any further questions/concerns/needs arise, voices understanding. Pt Goal: Home Plan[place]
--- NOTE | 2019-09-27 12:22 | PN_ITS ---
<Elena Bowen - Last Filed: 09/27/19 12:40> Patient Problems: Active and Suspected Problems (Last Reviewed 02/08/19 @ 16:18 by Deena Magana) Renal infarct (Acute) Aortic mural thrombus (Acute) Subjective: Patient seen and examined. Abdominal pain improved. Denies nausea, vomiting. - Physical Exam Vitals/I&O's: Vital Signs Temp Pulse Resp BP Pulse Ox 98.2 F 74 16 136/73 H 95 09/27/19 09:05 09/27/19 09:06 09/27/19 09:05 09/27/19 09:05 09/27/19 09:05 Oxygen Delivery Method Room Air Weight: 149 lb 4.047 oz Body Mass Index (BMI) 28.2 Intake and Output for Last 24 Hours 09/25/19 09/26/19 09/27/19 23:59 23:59 23:59 Intake Total 837.92 / 1237.92 1442.5 / 1442.5 Balance 837.92 / 1237.92 1442.5 / 1442.5 General: Alert, Oriented x3, Cooperative HEENT: Atraumatic, PERRLA, EOMI, Normocephalic Neck: Supple, No JVD, Negative Carotid Bruits Lungs: Clear to auscultation, Normal air movement Cardiovascular: Regular rate, Regular Rhythm, Normal S1, Normal S2, No murmurs Abdomen: Bowel Sounds Present, Soft, Non Tender, Non-Distended Extremities: No clubbing, No cyanosis, No edema, Capillary Refill Less than 3 Seconds Skin: No rashes, No breakdown Musculoskeletal: No Tenderness to Palpation of Joints or Extremities Neurological: Cranial nerves II-XII grossly intact, Neuro grossly intact Psych/Mental Status: Normal Affect, Appropriate Laboratory Results 09/26/19 13:00: WBC 12.4 H, RBC 4.49, Hgb 14.1, Hct 43.5, MCV 96.9, MCH 31.4, MCHC 32.4, RDW Std Deviation 47.8 H, RDW Coeff of Yoli 13.3, Plt Count 200, MPV 10.4, Immature Gran % (Auto) 0.400, Neut % (Auto) 62.1, Lymph % (Auto) 27.5, Hardeman % (Auto) 8.2, Eos % (Auto) 1.5, Baso % (Auto) 0.3, Absolute Neuts (auto) 7.7, Absolute Lymphs (auto) 3.40, Nucleated RBC % 0 09/26/19 13:00: Sodium 139, Potassium 3.6, Chloride 106, Carbon Dioxide 27.0, Anion Gap 6, BUN 20 H, Creatinine 1.01, Estim Creat Clear Calc 31.29, Est GFR (MDRD) Af Amer 67, Est GFR (MDRD) Non-Af 56 L, BUN/Creatinine Ratio 19.8, Glucose 138 H, Calcium 9.4, Total Bilirubin 0.70, AST 47 H, ALT 38, Alkaline Phosphatase 86, Total Protein 8.0, Albumin 4.1, Globulin 3.9, Albumin/Globulin Ratio 1.1 09/26/19 13:00: Lactic Acid 1.4 09/26/19 13:00: PT 13.0, INR 1.0, APTT 28.5 09/26/19 13:25: Urine Color Yellow, Urine Clarity Clear, Urine pH 7.0, Ur Specific Greenwood 1.005, Urine Protein 30 H, Urine Glucose (UA) Normal, Urine Ketones Negative, Urine Occult Blood 10 H, Urine Nitrite Negative, Urine Bilirubin Negative, Urine Urobilinogen Normal, Ur Leukocyte Esterase 25 H, Urine RBC 0 SEEN, Urine WBC 0-5 SEEN, Ur Squamous Epith Cells 0 SEEN, Urine Bacteria 0 SEEN, Urine Mucus 0 SEEN 09/27/19 06:20: WBC 10.4, RBC 3.76 L, Hgb 11.6 L, Hct 37.0, MCV 98.4, MCH 30.9, MCHC 31.4 L, RDW Std Deviation 49.3 H, RDW Coeff of Yoli 13.7, Plt Count 165, MPV 10.5, Immature Gran % (Auto) 0.400, Neut % (Auto) 63.2, Lymph % (Auto) 24.1, Hardeman % (Auto) 10.8 H, Eos % (Auto) 1.3, Baso % (Auto) 0.2, Absolute Neuts (auto) 6.6, Absolute Lymphs (auto) 2.50, Nucleated RBC % 0 09/27/19 06:20: Sodium 141, Potassium 3.6, Chloride 109 H, Carbon Dioxide 27.0, Anion Gap 5, BUN 19 H, Creatinine 0.97, Estim Creat Clear Calc 32.58, Est GFR (MDRD) Af Amer 70, Est GFR (MDRD) Non-Af 58 L, BUN/Creatinine Ratio 19.5, Glucose 104, Calcium 8.4 L Current Medications Acetaminophen (Tylenol) 650 mg PO Q6H PRN PRN PRN Reason: Pain Score 1-10/Temp > 100.7 F Last Admin: 09/27/19 09:05 Dose: 650 mg Documented by: Amlodipine Besylate (Norvasc) 10 mg PO DAILY REPLACED BY [facility] Last Admin: 09/27/19 09:06 Dose: 10 mg Documented by: Atorvastatin Calcium (Lipitor) 80 mg PO QHS REPLACED BY [facility] Last Admin: 09/26/19 21:38 Dose: 80 mg Documented by: Enoxaparin Sodium (Lovenox) 70 mg SC Q12@0600,1800 REPLACED BY [facility] Last Admin: 09/27/19 06:34 Dose: 70 mg Documented by: Hydralazine HCl (Apresoline Iv) 10 mg IV Q8H PRN PRN PRN Reason: for SBP>160 Sodium Chloride () 1,000 mls @ 75 mls/hr IV .[id number] REPLACED BY [facility] Stop: 09/27/19 20:33 Last Admin: 09/27/19 06:34 Dose: 75 mls/hr Documented by: Losartan Potassium (Cozaar) 25 mg PO DAILY REPLACED BY [facility] Last Admin: 09/27/19 09:06 Dose: 25 mg Documented by: Metoprolol Tartrate (Lopressor (Beta Yadira)) 100 mg PO BID REPLACED BY [facility] Last Admin: 09/27/19 09:06 Dose: 100 mg Documented by: Morphine Sulfate () 1 - 2 mg IV Q4H PRN PRN PRN Reason: Pain Score 6-10/10 Ondansetron HCl (Zofran) 4 mg IV Q8H PRN PRN PRN Reason: NAUSEA/VOMITING Oxycodone HCl (Oxyir) 5 mg PO Q6H PRN PRN PRN Reason: Pain Score 4-5/10 Senna/Docusate Sodium (Senokot-S, Marguerite-Colace) 2 tablet PO BID PRN PRN PRN Reason: Constipation Zolpidem Tartrate (Ambien (Generic)) 5 mg PO QHS PRN PRN PRN Reason: INSOMNIA Medical Necessity - Tobacco Use Smoking Status: Never smoker Tobacco Use: Non-smoker Assessment/Plan All Active Problems (Last Reviewed 02/08/19 @ 16:18 by Deena Magana) Renal infarct (Acute) Aortic mural thrombus (Acute) 1. 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 CT of abdomen and pelvis on admission shows 3.5 cm x 2.3 cm hypodensity in the midportion of the left kidney involving both the mid Dula and cortex. Previously on anticoagulation which was discontinued due to GI bleed and epistaxis. On therapeutic Lovenox, transition to Eliquis. Echocardiogram pending. PRN pain regimen. 2. CAD with history of stents-aspirin on hold. Continue statin, metoprolol. Currently normal sinus rhythm. 3. Paroxysmal atrial fibrillation-continue metoprolol. Initiate Eliquis as noted above. 4. Hypertension-stable, continue amlodipine, losartan, metoprolol. 5. Type 2 diabetes mellitus- diet controlled. 6. Hyperlipidemia-continue statin. DVT prophylaxis-Lovenox subcu, transition to Eliquis This patient was seen by NIKOS Becerril under the supervision of Dr. Fry. <Nirmala Fry - Last Filed: 09/27/19 12:52> - Physical Exam Vitals/I&O's: Vital Signs Temp Pulse Resp BP Pulse Ox 98.2 F 74 16 136/73 H 95 09/27/19 09:05 09/27/19 09:06 09/27/19 09:05 09/27/19 09:05 09/27/19 09:05 Oxygen Delivery Method Room Air Weight: 67.7 kg Body Mass Index (BMI) 28.2 Intake and Output for Last 24 Hours 09/25/19 09/26/19 09/27/19 23:59 23:59 23:59 Intake Total 837.92 / 1237.92 1442.5 / 1442.5 Balance 837.92 / 1237.92 1442.5 / 1442.5 Laboratory Results 09/26/19 13:00: WBC 12.4 H, RBC 4.49, Hgb 14.1, Hct 43.5, MCV 96.9, MCH 31.4, MCHC 32.4, RDW Std Deviation 47.8 H, RDW Coeff of Yoli 13.3, Plt Count 200, MPV 10.4, Immature Gran % (Auto) 0.400, Neut % (Auto) 62.1, Lymph % (Auto) 27.5, Hardeman % (Auto) 8.2, Eos % (Auto) 1.5, Baso % (Auto) 0.3, Absolute Neuts (auto) 7.7, Absolute Lymphs (auto) 3.40, Nucleated RBC % 0 09/26/19 13:00: Sodium 139, Potassium 3.6, Chloride 106, Carbon Dioxide 27.0, Anion Gap 6, BUN 20 H, Creatinine 1.01, Estim Creat Clear Calc 31.29, Est GFR (MDRD) Af Amer 67, Est GFR (MDRD) Non-Af 56 L, BUN/Creatinine Ratio 19.8, Glucose 138 H, Calcium 9.4, Total Bilirubin 0.70, AST 47 H, ALT 38, Alkaline Phosphatase 86, Total Protein 8.0, Albumin 4.1, Globulin 3.9, Albumin/Globulin Ratio 1.1 09/26/19 13:00: Lactic Acid 1.4 09/26/19 13:00: PT 13.0, INR 1.0, APTT 28.5 09/26/19 13:25: Urine Color Yellow, Urine Clarity Clear, Urine pH 7.0, Ur Specific Green[place] 1.005, Urine Protein 30 H, Urine Glucose (UA) Normal, Urine Ketones Negative, Urine Occult Blood 10 H, Urine Nitrite Negative, Urine Bilirubin Negative, Urine Urobilinogen Normal, Ur Leukocyte Esterase 25 H, Urine RBC 0 SEEN, Urine WBC 0-5 SEEN, Ur Squamous Epith Cells 0 SEEN, Urine Bacteria 0 SEEN, Urine Mucus 0 SEEN 09/27/19 06:20: WBC 10.4, RBC 3.76 L, Hgb 11.6 L, Hct 37.0, MCV 98.4, MCH 30.9, MCHC 31.4 L, RDW Std Deviation 49.3 H, RDW Coeff of Yoli 13.7, Plt Count 165, MPV 10.5, Immature Gran % (Auto) 0.400, Neut % (Auto) 63.2, Lymph % (Auto) 24.1, Hardeman % (Auto) 10.8 H, Eos % (Auto) 1.3, Baso % (Auto) 0.2, Absolute Neuts (auto) 6.6, Absolute Lymphs (auto) 2.50, Nucleated RBC % 0 09/27/19 06:20: Sodium 141, Potassium 3.6, Chloride 109 H, Carbon Dioxide 27.0, Anion Gap 5, BUN 19 H, Creatinine 0.97, Estim Creat Clear Calc 32.58, Est GFR (MDRD) Af Amer 70, Est GFR (MDRD) Non-Af 58 L, BUN/Creatinine Ratio 19.5, Glucose 104, Calcium 8.4 L Current Medications Acetaminophen (Tylenol) 650 mg PO Q6H PRN PRN PRN Reason: Pain Score 1-10/Temp > 100.7 F Last Admin: 09/27/19 09:05 Dose: 650 mg Documented by: Amlodipine Besylate (Norvasc) 10 mg PO DAILY REPLACED BY [facility] Last Admin: 09/27/19 09:06 Dose: 10 mg Documented by: Apixaban (Eliquis) 10 mg PO BID REPLACED BY [facility] Atorvastatin Calcium (Lipitor) 80 mg PO QHS REPLACED BY [facility] Last Admin: 09/26/19 21:38 Dose: 80 mg Documented by: Hydralazine HCl (Apresoline Iv) 10 mg IV Q8H PRN PRN PRN Reason: for SBP>160 Sodium Chloride () 1,000 mls @ 75 mls/hr IV .[id number] REPLACED BY [facility] Stop: 09/27/19 20:33 Last Admin: 09/27/19 06:34 Dose: 75 mls/hr Documented by: Losartan Potassium (Cozaar) 25 mg PO DAILY REPLACED BY [facility] Last Admin: 09/27/19 09:06 Dose: 25 mg Documented by: Metoprolol Tartrate (Lopressor (Beta Yadira)) 100 mg PO BID REPLACED BY [facility] Last Admin: 09/27/19 09:06 Dose: 100 mg Documented by: Morphine Sulfate () 1 - 2 mg IV Q4H PRN PRN PRN Reason: Pain Score 6-10/10 Ondansetron HCl (Zofran) 4 mg IV Q8H PRN PRN PRN Reason: NAUSEA/VOMITING Oxycodone HCl (Oxyir) 5 mg PO Q6H PRN PRN PRN Reason: Pain Score 4-5/10 Senna/Docusate Sodium (Senokot-S, Marguerite-Colace) 2 tablet PO BID PRN PRN PRN Reason: Constipation Zolpidem Tartrate (Ambien (Generic)) 5 mg PO QHS PRN PRN PRN Reason: INSOMNIA Assessment/Plan This patient was seen in conjunction with Elena Bowen NP. I have indepen dently interviewed and examined the patient and reviewed pertinent historical, laboratory, and other data. Please refer to her note for patient's presentation, findings, and recommendations. Patient was seen and examined. Her pain is controlled. Denies any dizziness or SOB or palpitations. Vitals were reviewed -stable Physical Exam:Comfortable, not pale, not jaundiced, alert oriented x3, not on oxygen CVS:HS I +II, regular, no murmurs RESP: CTA GI: BS present and normal, nontender, no palpable organs EXT:No edema Labs reviewed: ASSESSMENT: 1. Acute abdominal aortic mural thrombus 2. Acute right renal infarct 3. Paroxysmal atrial fibrillation 4. CAD status post stents 5. Hypertension 6. Type II DM 7. Hyperlipidemia Meds reviewed Plan: We will follow-up on 2D echo Transition to [employer] Monitor H&H Possible DC in a.m. if stable Inpatient E&M: 71498 Subs Hosp L2
[2019-09-27 13:10] LABS: Hematocrit 33.5 % (37-47); Hemoglobin 10.9 g/dL (12.0-15.0)
[2019-09-27 20:27] LABS: Hematocrit 35.8 % (37-47); Hemoglobin 11.4 g/dL (12.0-15.0)
[2019-09-27] MEDS: Atorvastatin Calcium 80 MG Tablet PO (21:12)
[2019-09-27] MEDS: APIXABAN 5 MG TABLET 10 MG PO (21:12)
[2019-09-28 02:54] VITALS: BP 135/60; PULSE 69; RESP 16; TEMP 37.2; O2SAT 92
[2019-09-28 03:00] VITALS: PULSE 71
[2019-09-28 06:51] LABS: Basophil# 0.02 X10^3/uL; Basophil% 0.2 % (0-1); Eosinophil# 0.15 X10^3/uL; Eosinophils% 1.6 % (0-5); Hematocrit 32.3 % (37-47); Hemoglobin 10.3 g/dL (12.0-15.0); Lymphocyte % 33.2 % (19-41); Mean Corp Hgb Conc 31.9 g/dL (32-36); Mean Corpuscular Hgb 30.9 pg (27.0-32.0); Mean Platelet Vol. 10.4 fl (6.2-12.0); Monocyte# 1.05 X10^3/uL; Monocyte% 11.2 % (0-10); NRBC Flagged by Analyzer 0 % (0-5); Neutrophil # 4.99 X10^3/uL (2.7-7.7); Neutrophil % 53.4 % (47-70); Platelet Count 140 K/mm3 (150-450); RBC Distribution Width CV 13.7 % (11.6-14.6); RBC Distribution Width SD 48.8 fl (35.1-43.9); Red Blood Count 3.33 M/mm3 (4.2-5.4); White Blood Count 9.4 K/mm3 (4.4-11.0)
[2019-09-28 07:20] LABS: ALB/GLOB Ratio 0.9 RATIO (0.9-2.4); AST(SGOT) 60 U/L (15-37); Alanine Aminotransfer ALT/SGPT 52 U/L (13-56); Albumin, Serum 2.7 g/dL (3.2-5.0); Alkaline Phosphatase 62 U/L (45-117); Anion Gap 6 (5-15); BUN 21 mg/dL (7-18); BUN/Creat Ratio 20.6 RATIO (10-20); Calcium,Total 8.3 mg/dL (8.5-10.1); Chloride 113 mmol/L (98-107); Creatinine, Serum 1.02 mg/dL (0.55-1.02); EST Glomerular Filtration Rate 55 mL/min (>60); Est Glom Filt Rate - Afr Amer 66 mL/min (>60); Estimated Creatinine Clearance 30.98 ml/min; Globulin 3.1 g/dL (2.2-4.2); Glucose 107 mg/dL (74-106); Potassium 3.9 mmol/L (3.5-5.1); Protein, Total 5.8 g/dL (6.4-8.2); Sodium Level 144 mmol/L (136-145)
[2019-09-28 07:30] VITALS: O2SAT 96
[2019-09-28 08:35] VITALS: PULSE 75
[2019-09-28] MEDS: APIXABAN 5 MG TABLET 10 MG PO (08:35)
[2019-09-28] MEDS: Losartan Potassium 25 MG Tablet PO (08:35)
[2019-09-28] MEDS: Metoprolol Tartrate 100 MG Tablet PO (08:35)
[2019-09-28] MEDS: amLODIPine 10 MG Tablet PO (08:36)
[2019-09-28 08:50] VITALS: BP 119/78; PULSE 79; RESP 16; TEMP 36.9; O2SAT 97
--- NOTE | 2019-09-28 10:51 | DCINST_ITS ---
- Discharge Diagnoses Current Active Problems: Current Active and Chronic Problems (Last Reviewed 02/08/19 @ 16:18 by Deena Magana) Hx of lower gastrointestinal bleeding (Chronic) Renal infarct (Acute) Aortic mural thrombus (Acute) You will use the following diet at home:: No restrictions Discharge Activity: Return to Normal Activity Call your doctor if you observe: Shortness of breath, Dizziness, Fainting spells, Chest pain Allergies/Adverse Reactions: Allergies codeine Adverse Reaction (Verified 09/26/19 12:26) Nausea lisinopril Adverse Reaction (Verified 09/26/19 12:26) Cough Medications to take at Discharge Aspirin E.C. [Ecotrin] 81 mg PO DAILY@0800 11/14/18 Atorvastatin Calcium 80 mg PO QHS 11/14/18 Magnesium Gluconate 27 mg PO DAILY 11/14/18 Vit C/Vit E AC/Lut/Copper/Zinc [Preservision Lutein Softgel] 1 cap PO BID 11/14/18 metoprolol tartrate 100 mg tablet 100 mg PO BID tab 01/31/19 losartan 25 mg tablet 25 mg PO DAILY #30 tab 06/05/19 amlodipine 10 mg tablet 10 mg PO DAILY #90 tab 08/24/19 Cholecalciferol (VIT D3) [Vitamin D3] 1,000 unit PO DAILY 09/26/19 Cyanocobalamin (Vitamin B-12) [B-12] 1,000 mcg PO DAILY 09/26/19 Sulfasalazine 500 mg PO Q6H PRN PRN 09/26/19 Apixaban [Eliquis] 10 mg PO BID #72 tab 09/28/19 The following prescriptions were given: Apixaban [Eliquis] 10 mg PO BID #72 tab Transmission Status: Pending to [id number] Primary Care Physician: Whitney Quarles MD [Primary Care Provider] - Please follow up with your Primary Care Physician in: 1 Week Test Results: Test results from this visit will be discussed in further detail at your follow- up appointment, if applicable. Please Follow Up With: Bryce Esparza MD When: 4-6 Weeks Proposed Discharge Date: 09/28/19
--- NOTE | 2019-09-28 11:15 | PCM.DC.SUM ---
<Elena Bowen - Last Filed: 09/28/19 11:30> Discharge Date and Diagnosis Date of Admission: 09/26/19 Date of Discharge: 09/28/19 - Primary Discharge Diagnosis Active and Suspected Problems (Last Reviewed 02/08/19 @ 16:18 by Deena Magana) 1. 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 2. CAD with history of stents 3. Paroxysmal atrial fibrillation 4. Hypertension 5. Type 2 diabetes mellitus 6. Hyperlipidemia - Secondary Discharge Diagnosis Chronic Problems (Last Reviewed 02/08/19 @ 16:18 by Deena Magana) Hx of lower gastrointestinal bleeding (Chronic) Presence of stent in coronary artery (Chronic ~06/20/15) PTCA/SHABNAM x1 to RCA and PTCA/SHABNAM x2 to LCX 06/20/15 @ [facility] Essential hypertension (Chronic) Atherosclerotic heart disease of [place] coronary artery without angina pectoris (Chronic) Pure hypercholesterolemia (Chronic) Diabetes mellitus type II, controlled (Chronic) PAF (paroxysmal atrial fibrillation) (Chronic) Hospital Course and Treatment Imaging Results: Diagnostic Data Abdomen/Pelvis CT 09/26/19 12:39 IMPRESSION: Bilateral renal cysts. 3.5 cm x 2.3 cm hypodensity in the midportion of the left kidney involving both the medulla and cortex. This may represent an element of infarction. Clinical correlation is recommended. Electronically Signed: Saad Salamanca, at 15:17 EDT , Service support , Operations: None Procedures: 2-D Echocardiogram Summary of Care Provided: The patient is a 84 year old F admitted 09/26/2019 due to abdominal pain. 1. 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 CT of abdomen and pelvis on admission shows 3.5 cm x 2.3 cm hypodensity in the midportion of the left kidney involving both the medulla and cortex. Initially on therapeutic Lovenox, transition to Eliquis 10 mg twice daily for 7 days and then 5 mg twice daily. Echocardiogram demonstrated an EF of 65%, stage II diastolic dysfunction, mild aortic stenosis, mild tricuspid valve insufficiency. Patient denies further abdominal pain. Follow-up with primary care physician in 1 week. Follow-up with cardiology as scheduled. 2. CAD with history of stents-aspirin on hold. Continue statin, metoprolol. Currently normal sinus rhythm. 3. Paroxysmal atrial fibrillation-continue metoprolol. Initiate Eliquis as noted above. 4. Hypertension-stable, continue amlodipine, losartan, metoprolol. 5. Type 2 diabetes mellitus- diet controlled. 6. Hyperlipidemia-continue statin. General: Alert, Oriented x3, Cooperative HEENT: Atraumatic, PERRLA, EOMI, Normocephalic Neck: Supple, No JVD, Negative Carotid Bruits Lungs: Clear to auscultation, Normal air movement Cardiovascular: Regular rate, Regular Rhythm, Normal S1, Normal S2, No murmurs Abdomen: Bowel Sounds Present, Soft, Non Tender, Non-Distended Extremities: No clubbing, No cyanosis, No edema, Capillary Refill Less than 3 Seconds Skin: No rashes, No breakdown Musculoskeletal: No Tenderness to Palpation of Joints or Extremities Neurological: Cranial nerves II-XII grossly intact, Neuro grossly intact Psych/Mental Status: Normal Affect, Appropriate Patient seen and examined prior to discharge. Physical assessment as noted above. Patient is stable for discharge with follow up recommendations as noted above. This patient was seen by NIKOS Becerril under the supervision of Dr. Fry. - Physical Exam Vitals/I&O's: Vital Signs Temp Pulse Resp BP Pulse Ox 98.4 F 79 16 119/78 97 09/28/19 08:50 09/28/19 08:50 09/28/19 08:50 09/28/19 08:50 09/28/19 08:50 Oxygen Delivery Method Room Air Weight: 149 lb 4.047 oz Body Mass Index (BMI) 28.2 Intake and Output for Last 24 Hours 09/26/19 09/27/19 09/28/19 23:59 23:59 23:59 Intake Total 837.92 / 1237.92 3542.5 / 3542.5 Balance 837.92 / 1237.92 3542.5 / 3542.5 Laboratory Results 09/27/19 13:00: Hgb 10.9 L, Hct 33.5 L 09/27/19 20:10: Hgb 11.4 L, Hct 35.8 L 09/28/19 06:20: WBC 9.4, RBC 3.33 L, Hgb 10.3 L, Hct 32.3 L, MCV 97.0, MCH 30.9, MCHC 31.9 L, RDW Std Deviation 48.8 H, RDW Coeff of Yoli 13.7, Plt Count 140 L, MPV 10.4, Immature Gran % (Auto) 0.400, Neut % (Auto) 53.4, Lymph % (Auto) 33.2, Gulf % (Auto) 11.2 H, Eos % (Auto) 1.6, Baso % (Auto) 0.2, Absolute Neuts (auto) 5.0, Absolute Lymphs (auto) 3.10, Nucleated RBC % 0 09/28/19 06:20: Sodium 144, Potassium 3.9, Chloride 113 H, Carbon Dioxide 25.0, Anion Gap 6, BUN 21 H, Creatinine 1.02, Estim Creat Clear Calc 30.98, Est GFR (MDRD) Af Amer 66, Est GFR (MDRD) Non-Af 55 L, BUN/Creatinine Ratio 20.6 H, Glucose 107 H, Calcium 8.3 L, Total Bilirubin 0.50, AST 60 H, ALT 52, Alkaline Phosphatase 62, Total Protein 5.8 L, Albumin 2.7 L, Globulin 3.1, Albumin/Globulin Ratio 0.9 Current Medications Acetaminophen (Tylenol) 650 mg PO Q6H PRN PRN PRN Reason: Pain Score 1-10/Temp > 100.7 F Last Admin: 09/27/19 09:05 Dose: 650 mg Documented by: Amlodipine Besylate (Norvasc) 10 mg PO DAILY [facility] Last Admin: 09/28/19 08:36 Dose: 10 mg Documented by: Apixaban (Eliquis) 10 mg PO BID [facility] Last Admin: 09/28/19 08:35 Dose: 10 mg Documented by: Atorvastatin Calcium (Lipitor) 80 mg PO QHS [facility] Last Admin: 09/27/19 21:12 Dose: 80 mg Documented by: Hydralazine HCl (Apresoline Iv) 10 mg IV Q8H PRN PRN PRN Reason: for SBP>160 Losartan Potassium (Cozaar) 25 mg PO DAILY [facility] Last Admin: 09/28/19 08:35 Dose: 25 mg Documented by: Metoprolol Tartrate (Lopressor (Beta Yadira)) 100 mg PO BID [facility] Last Admin: 09/28/19 08:35 Dose: 100 mg Documented by: Morphine Sulfate () 1 - 2 mg IV Q4H PRN PRN PRN Reason: Pain Score 6-10/10 Ondansetron HCl (Zofran) 4 mg IV Q8H PRN PRN PRN Reason: NAUSEA/VOMITING Oxycodone HCl (Oxyir) 5 mg PO Q6H PRN PRN PRN Reason: Pain Score 4-5/10 Senna/Docusate Sodium (Senokot-S, Marguerite-Colace) 2 tablet PO BID PRN PRN PRN Reason: Constipation Zolpidem Tartrate (Ambien (Generic)) 5 mg PO QHS PRN PRN PRN Reason: INSOMNIA Discharge Diet: No Restrictions Discharge Activity: Return to Normal Activity Call your doctor if you observe: Shortness of breath, Dizziness, Fainting spells, Chest pain Home Medications: Medications to take at Discharge Aspirin E.C. [Ecotrin] 81 mg PO DAILY@0800 11/14/18 Atorvastatin Calcium 80 mg PO QHS 11/14/18 Magnesium Gluconate 27 mg PO DAILY 11/14/18 Vit C/Vit E AC/Lut/Copper/Zinc [Preservision Lutein Softgel] 1 cap PO BID 11/14/18 metoprolol tartrate 100 mg tablet 100 mg PO BID tab 01/31/19 losartan 25 mg tablet 25 mg PO DAILY #30 tab 06/05/19 amlodipine 10 mg tablet 10 mg PO DAILY #90 tab 08/24/19 Cholecalciferol (VIT D3) [Vitamin D3] 1,000 unit PO DAILY 09/26/19 Cyanocobalamin (Vitamin B-12) [B-12] 1,000 mcg PO DAILY 09/26/19 Sulfasalazine 500 mg PO Q6H PRN PRN 09/26/19 Apixaban [Eliquis] 10 mg PO BID #72 tab 09/28/19 Following Prescrptions Were Given to Patient: Apixaban [Eliquis] 10 mg PO BID #72 tab Transmission Status: Received by [id number] Primary Care Physician: Whitney Quarles MD [Primary Care Provider] - Please follow up with your Primary Care Physician in: 1 Week Please Follow Up With: Bryce Esparza MD When: 4-6 Weeks Disposition: Home Minutes spent on discharge:: 35 Patient Condition:: Stable Medical Necessity - Tobacco Use Smoking Status: Never smoker Tobacco Use: Non-smoker Meaningful Use Info Meaningful Use Diagnoses (Choose all that apply): None applicable <Nirmala Fry - Last Filed: 09/28/19 15:45> Discharge Date and Diagnosis - Secondary Discharge Diagnosis Chronic Problems (Last Reviewed 02/08/19 @ 16:18 by Deena Magana) Hx of lower gastrointestinal bleeding (Chronic) Presence of stent in coronary artery (Chronic ~06/20/15) PTCA/SHABNAM x1 to RCA and PTCA/SHABNAM x2 to LCX 06/20/15 @ [facility] Essential hypertension (Chronic) Atherosclerotic heart disease of [place] coronary artery without angina pectoris (Chronic) Pure hypercholesterolemia (Chronic) Diabetes mellitus type II, controlled (Chronic) PAF (paroxysmal atrial fibrillation) (Chronic) Hospital Course and Treatment Summary of Care Provided: This patient was seen in conjunction with Elena Bowen NP. I have independently interviewed and examined the patient and reviewed pertinent historical, laboratory, and other data. Please refer to her note for patient's presentation, findings, and recommendations. 84-year-old female with past medical history of paroxysmal A. fib, not on Coumadin, CAD status post stents, hypertension, type II DM who comes in with complaints of abdominal pain which was described as severe cramping and localized in the right flank region. Work-up in the emergency department showed aortic mural thrombus with right renal infarct. Patient was admitted to the telemetry floor, started on Lovenox. 2D echo showed no acute of normality. Patient was transitioned to [facility]. Follow-up with her primary care doctor and cardiology in the outpatient. Physical Exam: Gen: Comfortable, not pale, not jaundiced, alert oriented x3 CVS:HS I +II, regular, no murmurs RESP: CTA GI: BS present and normal, nontender, no palpable organs EXT:No edema ASSESSMENT: 1. Acute abdominal aortic mural thrombus 2. Acute right renal infarct 3. Paroxysmal atrial fibrillation 4. CAD status post stents 5. Hypertension 6. Type II DM 7. Hyperlipidemia - Physical Exam Vitals/I&O's: Vital Signs Temp Pulse Resp BP Pulse Ox 98.4 F 79 16 119/78 97 09/28/19 08:50 09/28/19 08:50 09/28/19 08:50 09/28/19 08:50 09/28/19 08:50 Oxygen Delivery Method Room Air Weight: 67.7 kg Body Mass Index (BMI) 28.2 Intake and Output for Last 24 Hours 09/26/19 09/27/19 09/28/19 23:59 23:59 23:59 Intake Total 837.92 / 1237.92 3542.5 / 3542.5 Balance 837.92 / 1237.92 3542.5 / 3542.5 Laboratory Results 09/27/19 20:10: Hgb 11.4 L, Hct 35.8 L 09/28/19 06:20: WBC 9.4, RBC 3.33 L, Hgb 10.3 L, Hct 32.3 L, MCV 97.0, MCH 30.9, MCHC 31.9 L, RDW Std Deviation 48.8 H, RDW Coeff of Yoli 13.7, Plt Count 140 L, MPV 10.4, Immature Gran % (Auto) 0.400, Neut % (Auto) 53.4, Lymph % (Auto) 33.2, Gulf % (Auto) 11.2 H, Eos % (Auto) 1.6, Baso % (Auto) 0.2, Absolute Neuts (auto) 5.0, Absolute Lymphs (auto) 3.10, Nucleated RBC % 0 09/28/19 06:20: Sodium 144, Potassium 3.9, Chloride 113 H, Carbon Dioxide 25.0, Anion Gap 6, BUN 21 H, Creatinine 1.02, Estim Creat Clear Calc 30.98, Est GFR (MDRD) Af Amer 66, Est GFR (MDRD) Non-Af 55 L, BUN/Creatinine Ratio 20.6 H, Glucose 107 H, Calcium 8.3 L, Total Bilirubin 0.50, AST 60 H, ALT 52, Alkaline Phosphatase 62, Total Protein 5.8 L, Albumin 2.7 L, Globulin 3.1, Albumin/Globulin Ratio 0.9 Inpatient E&M: [id number] [facility]
--- NOTE | 2019-09-28 11:31 | CASEMGMT ---
Pt to be sent home on Eliquis at discharge and med e-scribed to [facility] previously. Call to [facility] and per tech, pt's co-pay is $84.00 at this time and she is not sure if any of that is deductible at this time. Pt updated on all at this time and provided with Eliquis 30 day free trial card at this time, voices understanding. Pt aware to notify PCP at f/u with any concerns with Eliquis larkin, voices understanding. Pt voices no further questions/concerns/needs at this time. SStnicole RN CM
== END 2019-09-28 12:25 | disposition home or self-care (01) | DRG 699 ==
LOC: ED 15:11 → MS3 16:27 → PCU 09-27 07:20
PROVIDERS: Emergency Medicine; Admitting Provider Hospitalist; Emergency Provider Emergency Medicine; PCP Internal Medicine; Visit Provider Internal Medicine
DX: N28.0 Ischemia and infarction of kidney (principal); I74.09 Other arterial embolism and thrombosis of abdominal aorta; I48.0 Paroxysmal atrial fibrillation; I10 Essential (primary) hypertension; E78.5 Hyperlipidemia, unspecified; E11.9 Type 2 diabetes mellitus without complications; I25.10 Atherosclerotic heart disease of native coronary artery without angina pectoris; E78.00 Pure hypercholesterolemia, unspecified; I25.2 Old myocardial infarction; Z95.5 Presence of coronary angioplasty implant and graft; Z79.82 Long term (current) use of aspirin; Z79.01 Long term (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; Z90.710 Acquired absence of both cervix and uterus
CPT/HCPCS: 36415; 74177; 80048; 80053; 81001; 83605; 85014; 85018; 85025; 85610; 85730; 93005; 93306; 96361; 96374; 96375; 99251; 99284; J7030; Q9967; A4216; G0463; J2405

== ENCOUNTER → 2019-10-16 15:24 | Outpatient (CLI) | payer MEDICARE, SELFPAY ==
[2019-10-16 14:55] VITALS: BMI 28.3
[2019-10-16 16:18] LABS: Absolute Lymphocyte Count 3.68 X10^3/uL (0.83-4.51); Absolute Neutrophil Count 4.4 X10^3/uL (2.0-7.7); Basophil# 0.04 X10^3/uL; Basophil% 0.4 % (0-1); Eosinophil# 0.32 X10^3/uL; Eosinophils% 3.4 % (0-5); Hematocrit 38.9 % (37-47); Hemoglobin 12.3 g/dL (12.0-15.0); Lymphocyte # 3.68 X10^3/ul (4.0); Lymphocyte % 39.1 % (19-41); Mean Corp Hgb Conc 31.6 g/dL (32-36); Mean Corpuscular Hgb 31.2 pg (27.0-32.0); Mean Corpuscular Volume 98.7 fL (81-99); Mean Platelet Vol. 10.7 fl (6.2-12.0); Monocyte# 0.89 X10^3/uL; Monocyte% 9.5 % (0-10); NRBC Flagged by Analyzer 0 % (0-5); Neutrophil # 4.42 X10^3/uL (2.7-7.7); Neutrophil % 47.1 % (47-70); Platelet Count 227 K/mm3 (150-450); RBC Distribution Width CV 13.3 % (11.6-14.6); RBC Distribution Width SD 48.2 fl (35.1-43.9); Red Blood Count 3.94 M/mm3 (4.2-5.4); White Blood Count 9.4 K/mm3 (4.4-11.0)
[2019-10-16 16:30] LABS: Anion Gap 7 (5-15); BUN 27 mg/dL (7-18); BUN/Creat Ratio 23.3 RATIO (10-20); Calcium,Total 9.4 mg/dL (8.5-10.1); Chloride 107 mmol/L (98-107); Creatinine, Serum 1.16 mg/dL (0.55-1.02); EST Glomerular Filtration Rate 47 mL/min (>60); Est Glom Filt Rate - Afr Amer 57 mL/min (>60); Glucose 133 mg/dL (74-106); Potassium 3.9 mmol/L (3.5-5.1); Sodium Level 142 mmol/L (136-145)
== END ==
PROVIDERS: PCP Internal Medicine; Referring Provider Surgery; Visit Provider Surgery
DX: D64.9 Anemia, unspecified (principal)
CPT/HCPCS: 36415; 80048; 85025

== ENCOUNTER 2019-10-19 05:24 | Day surgery (SDC) | payer MEDICARE, SELFPAY ==
[2019-10-16 15:49] VITALS: BMI 28.2
--- NOTE | 2019-10-19 05:49 | HP.PCM_ITS ---
Problem List (1) Rectal bleeding Status: Acute History and Physical Date of Admission: 10/19/19 Intake Visit Reasons: C-Scope/Rectal Bleeding Chief Complaint: abdominal pain Guitar Player Required: No Is patient in pain?: No Allergies codeine Adverse Reaction (Verified 10/16/19 14:56) Nausea lisinopril Adverse Reaction (Verified 10/16/19 14:56) Cough Medications Atorvastatin Calcium 80 mg PO QHS 11/14/18 [History Confirmed 10/16/19] Magnesium Gluconate 27 mg PO DAILY 11/14/18 [History Confirmed 10/16/19] Vit C/Vit E AC/Lut/Copper/Zinc [Preservision Lutein Softgel] 1 cap PO BID 11/14/18 [History Confirmed 10/16/19] metoprolol tartrate 100 mg tablet 100 mg PO BID tab 01/31/19 [History Confirmed 10/16/19] losartan 25 mg tablet 25 mg PO DAILY #30 tab 06/05/19 [Rx Confirmed 10/16/19] amlodipine 10 mg tablet 10 mg PO DAILY #90 tab 08/24/19 [Rx Confirmed 10/16/19] Cholecalciferol (VIT D3) [Vitamin D3] 1,000 unit PO DAILY 09/26/19 [History Confirmed 10/16/19] Cyanocobalamin (Vitamin B-12) [B-12] 1,000 mcg PO DAILY 09/26/19 [History Confirmed 10/16/19] Sulfasalazine 500 mg PO Q6H PRN PRN 09/26/19 [History Confirmed 10/16/19] apixaban 5 mg tablet 5 mg PO BID tab 10/11/19 [History Confirmed 10/16/19] aspirin 81 mg tablet,delayed release 81 mg PO DAILY@0800 #1 tab 10/11/19 [Rx Confirmed 10/16/19] PFSH Medical History Presence of stent in coronary artery (Chronic ~06/20/15) Essential hypertension (Chronic) Atherosclerotic heart disease of [place] coronary artery without angina pectoris (Chronic) Pure hypercholesterolemia (Chronic) Diabetes mellitus type II, controlled (Chronic) PAF (paroxysmal atrial fibrillation) (Chronic) History of basal cell carcinoma (Acute) History of non-ST elevation myocardial infarction (NSTEMI) (Acute) Diverticulosis (Chronic) Lichen planus (Chronic) Macular degeneration (Chronic) Surgical History Presence of coronary angioplasty implant and graft (Chronic ~06/20/15) History of bilateral oophorectomy (Resolved) History of repair of rotator cuff (Resolved) History of total hysterectomy (Resolved) Family History Mother Hypertension Heart disease Diabetes Father Diabetes Hypertension Sister Hypertension Diabetes Sister Diabetes Hypertension Sister Diabetes Hypertension Sister Diabetes Hypertension Social History (Updated 10/16/19 @ 16:[address] Gigi Hays MD) Smoking Status: Never smoker alcohol intake: never substance use type: does not use caffeine: No HPI HPI HPI: BRIANA CURIEL, is a 84 F who presents to the office today for surgical consultation regarding rectal bleeding. The patient is referred by Malagon PA and a written copy my surgical consult recommendations will return to her. The patient's primary care physician is and her painter barrel is Dr. Esparza. It is of note that on September 25 apparently she was hospitalized at the [facility] because of severe abdominal pain. 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 She carries here history of paroxysmal atrial fibrillation. 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 Laboratory of September 26, 2019 had a hemoglobin of 14. Laboratory on September 27, 2018 has a hemoglobin 10.3 and hematocrit of 32.3 with a platelet count of 140,000. The patient however states that she was not rectal bleeding at that time. She states that she was not bleeding till after she got home. She states that she still is bleeding. She denies any chest pain or shortness of breath. At discharge she had been placed on aspirin and apixaban. The apixaban at that point was 10 mg twice daily. She is currently had that held because of the rectal bleeding. She notes the previous myocardial infarction and she states that she has 3 coronary stents. Most recent colonoscopy was 2008. She denies family history of colon cancer. She denies abdominal pain. She is also been referred to urology to to evaluate her urinary bladder. She has had a remote hysterectomy HPI HPI HPI: BRIANA CURIEL, is a 84 F who presents to the office today for ROS General General: No weight change, appetite, fatigue, colon cancer, breast cancer or weakness HEENT HEENT: No difficulty swallowing, eye injury, eye surgery, swollen glands or hoarseness Endo Endocrine: No thyroid disease, diabetes mellitus, thyroid cancer, Hair loss, heat intolerance or cold intolerance Skin Skin: Yes rash; no changing moles Breast Breast: No left breast lump, right breast lump, nipple discharge, breast pain, abnormal mammogram, abnormal US or breast enlargement Musc Musculoskeletal: Yes back problems and arthritis; no rheumatoid arthritis, gout or joint pain Cardio Cardiovascular: Yes murmur, heart disease, atrial fibrillation, high blood pressure, heart attack and heart stent; no pacemaker, palpitations, shortness of breat with exertion or chest pain Psych Psychiatric: No depression, anxiety or hearing voices Resp Respiratory: No shortness of breath, No sleep apnea, No cough, No COPD, No asthma, No emphysema, No wheezing Gastro Gastrointestinal: No abdominal pain, No nausea or vomiting, No diarrhea, No constipation, Yes blood in stool, Yes acid reflux, No hemorrhoids, Yes ulcers, No gallbladder problem, No black,tarry stools Afshin Hematologic: Yes blood thinners, No blood disorders, Yes bleeding, No anemia, Yes blood clots Neuro Neurologic: No system reviewed and no additional complaints, except as docu, No as per HPI, No abnormal walking, No abnormal hearing, No abnormal movements, No abnormal speech, No behavioral changes, No burning sensations, No confusion, No seizure-like activity, No unsteadiness, No dizziness, No localized weakness, No frequent falls, No headache(s), No lack of coordination, No loss of vision, No memory loss, No numbness, No other visual disturbances, No radiating pain, No restless legs, No sensory deficit, No fainting, No tingling, No tremor(s), No weakness, No other Exam Const General: cooperative, healthy appearing, comfortable, no acute distress Nutritional Appearance: average body habitus Orientation: alert, awake [facility] Head: normal to inspection Eyes General: appearance normal, both eyes and all related structures Chest Breast Palpation: No nipple discharge Resp Effort & Inspection: normal respiratory effort Auscultation: clear to auscultation bilaterally Cardio Rate: regular rate Rhythm: regular rhythm Heart Sounds: murmur Other: 2/6 systolic ejection murmur Bilateral radials are 2+. Bilateral brachials 2+. Bilateral carotids 2+. No carotid bruits GI Palpation: soft, no hepatosplenomegaly Auscultation: normal bowel sounds Skin General: no rashes or lesions noted Neuro Cognition: normal cognition Extrem General: no calf tenderness Psych Affect: normal affect Assessment & Plan Problems 1. Rectal bleeding K62.5 Plan 84-year-old female with a history of paroxysmal atrial fibrillation on beta- blockade twice daily with recent infarct to the right kidney. Not clear to me that it is been determined whether this was cardiac in etiology or possible mural thrombus from the aorta. She was placed on anticoagulation but then developed rectal bleeding. As far as I can tell however it appears that her hemoglobin dropped without evidence of the rectal bleeding. The patient states that she still has episodes at home where she can feel her heart racing. Her anticoagulation is currently on hold Certainly we could proceed with a colonoscopy with possible biopsy or polypectomy as indicated. The patient is aware that at age 84 she is at increased risk of this procedure. I will also try to discuss with Dr. Bryce Esparza the patient's paroxysmal atrial fibrillation and as to whether there is any additional options for rate control. She has had an opportunity to ask and have questions answered. We will try to schedule and expedite her care as she is currently essentially off of anticoagulation. Cc: OLE Malagon and Dr. Bryce Esparza and Dr.Chitra Willam Hays M.D., F.A.C.S. I have had an opportunity speak about this patient with her painter barrel Dr. Bryce Esparza who will investigate as to whether additional rate control would be indicated and/or feasible. Orders Orders: Colonoscopy Today Basic Metabolic Profile (BMP) Today D64.9 CBC W/Diff, Automated Today D64.9 Coding Level of Care Code 89719 Diagnoses Rectal bleeding K62.5 I have re-examined the patient. There are no clinical changes since date of exam.
[2019-10-19 05:52] VITALS: BP 182/68; PULSE 64; RESP 16; TEMP 36.6; O2SAT 100; BMI 27.2
[2019-10-19] MEDS: Lactated Ringers 1,000 ML 75 ML IV (06:17)
[2019-10-19 06:51] VITALS: BP 148/69; BP 182/68; PULSE 69; RESP 14; TEMP 36.2; O2SAT 100
[2019-10-19 06:55] VITALS: BP 155/65; BP 182/68; PULSE 70; RESP 14; O2SAT 100
--- NOTE | 2019-10-19 06:58 | OP.COLON_ITS ---
Patient Name: Tasha Sweet Procedure Date: 10/19/2019 6:05 AM Date of : 1935 Age: 84 Procedure: Colonoscopy Indications: Rectal bleeding Providers: Gigi Hays MD Referring MD: Whitney Quarles Medicines: See the Anesthesia note for documentation of the administered medications Patient Profile: Last Colonoscopy: 2008. Complications: No immediate complications. Procedure: Pre-Anesthesia Assessment: - Prior to the procedure, a History and Physical was performed, and patient medications and allergies were reviewed. The patient's tolerance of previous anesthesia was also reviewed. The risks and benefits of the procedure and the sedation options and risks were discussed with the patient. All questions were answered, and informed consent was obtained. Prior Anticoagulants: The patient has taken no previous anticoagulant or antiplatelet agents. ASA Grade Assessment: II - A patient with mild systemic disease. After reviewing the risks and benefits, the patient was deemed in satisfactory condition to undergo the procedure. After I obtained informed consent, the scope was passed under direct vision. Throughout the procedure, the patient's blood pressure, pulse, and oxygen saturations were monitored continuously. The Colonoscope was introduced through the anus and advanced to the cecum, identified by appendiceal orifice and ileocecal valve. The colonoscopy was performed without difficulty. The patient tolerated the procedure well. The quality of the bowel preparation was excellent. The ileocecal valve and the appendiceal orifice were photographed. Scope In: 6:36:54 AM Scope Withdrawal Time 0 hours 6 minutes 32 seconds Scope Out: 6:47:13 AM Total Procedure Duration Time 0 hours 10 minutes 19 seconds Findings: The digital rectal exam findings include non-thrombosed internal hemorrhoids and internal hemorrhoids that prolapse with straining, but spontaneously regress to the resting position (Grade II). Scattered diverticula were found in the sigmoid colon. The exam was otherwise without abnormality. Impression: - Non-thrombosed internal hemorrhoids and internal hemorrhoids that prolapse with straining, but spontaneously regress to the resting position (Grade II) found on digital rectal exam. I suspect internal hemorrhoids are the source of rectal bleeding and will offer ppH hemorrhoidopexy - Diverticulosis in the sigmoid colon. - The examination was otherwise normal. - No specimens collected. Recommendation: - Discharge patient to home. - Resume previous diet. - Continue present medications. - Repeat colonoscopy is not recommended due to current age (66 years or older) for screening purposes. - Return to my office in 3 days. Procedure Code(s): --- Professional --- 43984, Colonoscopy, flexible; diagnostic, including collection of specimen(s) by brushing or washing, when performed (separate procedure) Diagnosis Code(s): --- Professional --- K64.1, Second degree hemorrhoids K62.5, Hemorrhage of anus and rectum K57.30, Diverticulosis of large intestine without perforation or abscess without bleeding CPT copyright 2017 [employer]. All rights reserved. The codes documented in this report are preliminary and upon valuation consultant review may be revised to meet current compliance requirements. Gigi Hays MD 10/19/2019 6:57:52 AM This report has been signed electronically. Number of Addenda: 0 Note Initiated On: 10/19/2019 6:05 AM
--- NOTE | 2019-10-19 06:58 | OP.CCLET_ITS ---
10/19/2019 Whitney Quarles [address] [id number] Re : Colonoscopy procedure for Tasha Sweet Dear Dr. Quarles This procedure was performed on Saturday, October 19, 2019. My impressions and recommendations are as follows: Impressions : - Non-thrombosed internal hemorrhoids and internal hemorrhoids that prolapse with straining, but spontaneously regress to the resting position (Grade II) found on digital rectal exam. I suspect internal hemorrhoids are the source of rectal bleeding and will offer ppH hemorrhoidopexy - Diverticulosis in the sigmoid colon. - The examination was otherwise normal. - No specimens collected. Recommendations : - Discharge patient to home. - Resume previous diet. - Continue present medications. - Repeat colonoscopy is not recommended due to current age (66 years or older) for screening purposes. - Return to my office in 3 days. My findings are described in the full procedure note, which is enclosed. If I can be of further assistance, please feel free to contact me at Doctor phone number(s): Work: . Sincerely, Gigi Hays MD 10/19/2019 6:57:52 AM This report has been signed electronically.
[2019-10-19 07:00] VITALS: BP 157/67; BP 182/68; PULSE 66; RESP 14; O2SAT 100
[2019-10-19 07:06] VITALS: BP 159/85; BP 182/68; PULSE 68; RESP 16; TEMP 36.4; O2SAT 100
[2019-10-19 07:22] VITALS: BP 182/68
== END 2019-10-19 07:51 | disposition home or self-care (01) ==
LOC: EN 05:25 → AC 05:26
PROVIDERS: PCP Internal Medicine; Referring Provider Internal Medicine; Visit Provider Surgery
PROC: 0DJD8ZZ Inspection of Lower Intestinal Tract, Via Natural or Artificial Opening Endoscopic (ICD-10-PCS; CPT 45378; principal; 2019-10-19 06:25)
DX: K64.1 Second degree hemorrhoids (principal); K62.5 Hemorrhage of anus and rectum; K57.30 Diverticulosis of large intestine without perforation or abscess without bleeding; I25.10 Atherosclerotic heart disease of native coronary artery without angina pectoris; I48.0 Paroxysmal atrial fibrillation; I25.2 Old myocardial infarction; I10 Essential (primary) hypertension; E11.9 Type 2 diabetes mellitus without complications; E78.00 Pure hypercholesterolemia, unspecified; Z95.5 Presence of coronary angioplasty implant and graft; Z79.01 Long term (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; Z79.82 Long term (current) use of aspirin; Z79.899 Other long term (current) drug therapy; Z11.59 Encounter for screening for other viral diseases
CPT/HCPCS: 45378; 87635; G2023; J7120; J2405; U0004

== ENCOUNTER 2019-10-24 05:44 | Day surgery (SDC) | payer MEDICARE, SELFPAY ==
--- NOTE | 2019-10-24 | HEM_PTH ---
PATIENT: BRIANA CURIEL [place] [facility] [place][id number] AGE/SX: 84/F ROOM: RE10/24/[address]: Dr. Gigi Hays MD : 1935 BED: DIS: 10/24/2019 SPEC #: [id number] RECD: 10/24/19 14:01 STATUS: DILCIA VALENTÍN #: [id number] ASHLEY: 10/24/19 00:[address]: Gigi Hays DEPT: SURGICAL PATHOLOGY RECD BY: Brett Pantoja ENTERED: 10/24/19 14:01 SP TYPE: HEMORRHOID OTHR DR: Dr. Whitney Quarles MD Tissues: HEMORRHOIDS Procedures: Surgery Specimen Level III HEADER OPERATION: Hemorrhoidectomy stapled PRE-OP DIAGNOSIS: Rectal bleeding from internal hemorrhoids TISSUE SUBMITTED: Hemorrhoids MICROSCOPIC DIAGNOSIS Hemorrhoids: A full thickness piece of colonic/rectal wall with focal area of mildly dilated and congested blood vessels, consistent with hemorrhoid. SJ:mya 10/25/19 COMMENT Case has been reviewed in consultation with Dr. León who concurs with the above diagnosis. IDC:AM MICROSCOPIC DESCRIPTION Slides are reviewed. GROSS DESCRIPTION Received in fixative is one container labeled with the patient's name and designated hemorrhoids. The specimen consists of a piece of tapia mucosal tissue with underlying tissue measuring 6 x 2 cm and up to 0.5 cm in thickness. A suture is noted in the central portion of the specimen and the mucosal appears to be thickened in that area measuring 1.5 x 1 cm. A focal area of ulceration is also noted. The deep margin is inked. The entire specimen is submitted in six cassettes. Cassettes 1 and 2 contain the area around the suture. / MATTEO:mya 10/24/19 TC:5 CPT: 30402
[2019-10-24 06:19] VITALS: BP 164/64; PULSE 60; RESP 18; TEMP 36.5; O2SAT 100; BMI 27.3
[2019-10-24] MEDS: Lactated Ringers 1,000 ML 100 ML IV (06:30)
--- NOTE | 2019-10-24 06:47 | PCM.HP.BLA ---
Problem List (1) Internal bleeding hemorrhoids Status: Acute History and Physical Date of Admission: 10/24/19 Intake Intake Visit Reasons: post endo Chief Complaint: post endo Assessment Consultant Required: No Is patient in pain?: No Allergies codeine Adverse Reaction (Verified 10/22/19 13:48) Nausea lisinopril Adverse Reaction (Verified 10/22/19 13:48) Cough Medications Atorvastatin Calcium 80 mg PO QHS 11/14/18 [History Confirmed 10/22/19] Magnesium Gluconate 27 mg PO DAILY 11/14/18 [History Confirmed 10/22/19] Vit C/Vit E AC/Lut/Copper/Zinc [Preservision Lutein Softgel] 1 cap PO BID 11/14/18 [History Confirmed 10/22/19] metoprolol tartrate 100 mg tablet 100 mg PO BID tab 01/31/19 [History Confirmed 10/22/19] losartan 25 mg tablet 25 mg PO DAILY #30 tab 06/05/19 [Rx Confirmed 10/22/19] amlodipine 10 mg tablet 10 mg PO DAILY #90 tab 08/24/19 [Rx Confirmed 10/22/19] Cholecalciferol (VIT D3) [Vitamin D3] 1,000 unit PO DAILY 09/26/19 [History Confirmed 10/22/19] Cyanocobalamin (Vitamin B-12) [B-12] 1,000 mcg PO DAILY 09/26/19 [History Confirmed 10/22/19] Sulfasalazine 500 mg PO Q6H PRN PRN 09/26/19 [History Confirmed 10/22/19] apixaban 5 mg tablet 5 mg PO BID tab 10/11/19 [History Confirmed 10/22/19] aspirin 81 mg tablet,delayed release 81 mg PO DAILY@0800 #1 tab 10/11/19 [Rx Confirmed 10/22/19] Is last menstrual period known: No Post menopausal: Yes Patient : No Subjective Details: 84-year-old female. I telephone contacted her for follow-up regarding her rectal bleeding analysis and colonoscopy. The patient currently is having her apixaban held. She had a renal infarct. She was placed on apixaban. She then had significant rectal bleeding. She then had a colonoscopy as noted below. The findings seem to suggest internal hemorrhoids as a source of the bleeding. The patient has had some slight ongoing rectal bleeding at home but nothing to the degree that she had when she was on the apixaban and the hemorrhoids. She does need to restart her anticoagulation however. MR#: [id number]:[id number] Name:Chase SWEET #:[id number] : [id number]: Gigi Hays MD PCP:Dr. Whitney Quarles MD Status:[facility] Patient Name: Briana Sweet Procedure Date: 10/19/2019 6:05 AM Date of : 1935 Age: 84 Procedure: Colonoscopy Indications: Rectal bleeding Providers: Gigi Hays MD Referring MD: Whitney Quarles Medicines: See the Anesthesia note for documentation of the administered medications Patient Profile: Last Colonoscopy: 2008. Complications: No immediate complications. Procedure: Pre-Anesthesia Assessment: - Prior to the procedure, a History and Physical was performed, and patient medications and allergies were reviewed. The patient's tolerance of previous anesthesia was also reviewed. The risks and benefits of the procedure and the sedation options and risks were discussed with the patient. All questions were answered, and informed consent was obtained. Prior Anticoagulants: The patient has taken no previous anticoagulant or antiplatelet agents. ASA Grade Assessment: II - A patient with mild systemic disease. After reviewing the risks and benefits, the patient was deemed in satisfactory condition to undergo the procedure. After I obtained informed consent, the scope was passed under direct vision. Throughout the procedure, the patient's blood pressure, pulse, and oxygen saturations were monitored continuously. The Colonoscope was introduced through the anus and advanced to the cecum, identified by appendiceal orifice and ileocecal valve. The colonoscopy was performed without difficulty. The patient tolerated the procedure well. The quality of the bowel preparation was excellent. The ileocecal valve and the appendiceal orifice were photographed. Scope In: 6:36:54 AM Scope Withdrawal Time 0 hours 6 minutes 32 seconds Scope Out: 6:47:13 AM Total Procedure Duration Time 0 hours 10 minutes 19 seconds Findings: The digital rectal exam findings include non-thrombosed internal hemorrhoids and internal hemorrhoids that prolapse with straining, but spontaneously regress to the resting position (Grade II). Scattered diverticula were found in the sigmoid colon. The exam was otherwise without abnormality. Impression: - Non-thrombosed internal hemorrhoids and internal hemorrhoids that prolapse with straining, but spontaneously regress to the resting position (Grade II) found on digital rectal exam. I suspect internal hemorrhoids are the source of rectal bleeding and will offer ppH hemorrhoidopexy - Diverticulosis in the sigmoid colon. - The examination was otherwise normal. - No specimens collected. Recommendation: - Discharge patient to home. - Resume previous diet. - Continue present medications. - Repeat colonoscopy is not recommended due to current age (66 years or older) for screening purposes. - Return to my office in 3 days. Procedure Code(s): --- Professional --- 07377, Colonoscopy, flexible; diagnostic, including collection of specimen(s) by brushing or washing, when performed (separate procedure) Diagnosis Code(s): --- Professional --- K64.1, Second degree hemorrhoids K62.5, Hemorrhage of anus and rectum K57.30, Diverticulosis of large intestine without perforation or abscess without bleeding CPT copyright 2017 [employer]. All rights reserved. The codes documented in this report are preliminary and upon senior javascript engineer review may be revised to meet current compliance requirements. Gigi Hays MD 10/19/2019 6:57:52 AM This report has been signed electronically. Number of Addenda: 0 Note Initiated On: 10/19/2019 6:05 AM 10/19/19 0657 Date Gigi Hays MD Visit Reasons: C-Scope/Rectal Bleeding Chief Complaint: abdominal pain Assessment Consultant Required: No Is patient in pain?: No Allergies codeine Adverse Reaction (Verified 10/16/19 14:56) Nausea lisinopril Adverse Reaction (Verified 10/16/19 14:56) Cough Medications Atorvastatin Calcium 80 mg PO QHS 11/14/18 [History Confirmed 10/16/19] Magnesium Gluconate 27 mg PO DAILY 11/14/18 [History Confirmed 10/16/19] Vit C/Vit E AC/Lut/Copper/Zinc [Preservision Lutein Softgel] 1 cap PO BID 11/14/18 [History Confirmed 10/16/19] metoprolol tartrate 100 mg tablet 100 mg PO BID tab 01/31/19 [History Confirmed 10/16/19] losartan 25 mg tablet 25 mg PO DAILY #30 tab 06/05/19 [Rx Confirmed 10/16/19] amlodipine 10 mg tablet 10 mg PO DAILY #90 tab 08/24/19 [Rx Confirmed 10/16/19] Cholecalciferol (VIT D3) [Vitamin D3] 1,000 unit PO DAILY 09/26/19 [History Confirmed 10/16/19] Cyanocobalamin (Vitamin B-12) [B-12] 1,000 mcg PO DAILY 09/26/19 [History Confirmed 10/16/19] Sulfasalazine 500 mg PO Q6H PRN PRN 09/26/19 [History Confirmed 10/16/19] apixaban 5 mg tablet 5 mg PO BID tab 10/11/19 [History Confirmed 10/16/19] aspirin 81 mg tablet,delayed release 81 mg PO DAILY@0800 #1 tab 10/11/19 [Rx Confirmed 10/16/19] PFSH Medical History Presence of stent in coronary artery (Chronic ~06/20/15) Essential hypertension (Chronic) Atherosclerotic heart disease of [place] coronary artery without angina pectoris (Chronic) Pure hypercholesterolemia (Chronic) Diabetes mellitus type II, controlled (Chronic) PAF (paroxysmal atrial fibrillation) (Chronic) History of basal cell carcinoma (Acute) History of non-ST elevation myocardial infarction (NSTEMI) (Acute) Diverticulosis (Chronic) Lichen planus (Chronic) Macular degeneration (Chronic) Surgical History Presence of coronary angioplasty implant and graft (Chronic ~06/20/15) History of bilateral oophorectomy (Resolved) History of repair of rotator cuff (Resolved) History of total hysterectomy (Resolved) Family History Mother Hypertension Heart disease Diabetes Father Diabetes Hypertension Sister Hypertension Diabetes Sister Diabetes Hypertension Sister Diabetes Hypertension Sister Diabetes Hypertension Social History (Updated 10/16/19 @ 16:[address] Gigi Hays MD) Smoking Status: Never smoker alcohol intake: never substance use type: does not use caffeine: No HPI HPI HPI: BRIANA SWEET, is a 84 F who presents to the office today for surgical consultation regarding rectal bleeding. The patient is referred by Malagon PA and a written copy my surgical consult recommendations will return to her. The patient's primary care physician is and her core maker helper is Dr. Esparza. It is of note that on September 25 apparently she was hospitalized at the [facility] because of severe abdominal pain. 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 She carries here history of paroxysmal atrial fibrillation. 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 Laboratory of September 26, 2019 had a hemoglobin of 14. Laboratory on September 27, 2018 has a hemoglobin 10.3 and hematocrit of 32.3 with a platelet count of 140,000. The patient however states that she was not rectal bleeding at that time. She states that she was not bleeding till after she got home. She states that she still is bleeding. She denies any chest pain or shortness of breath. At discharge she had been placed on aspirin and apixaban. The apixaban at that point was 10 mg twice daily. She is currently had that held because of the rectal bleeding. She notes the previous myocardial infarction and she states that she has 3 coronary stents. Most recent colonoscopy was 2008. She denies family history of colon cancer. She denies abdominal pain. She is also been referred to urology to to evaluate her urinary bladder. She has had a remote hysterectomy HPI HPI HPI: BRIANA SWEET, is a 84 F who presents to the office today for ROS General General: No weight change, appetite, fatigue, colon cancer, breast cancer or weakness HEENT HEENT: No difficulty swallowing, eye injury, eye surgery, swollen glands or hoarseness Endo Endocrine: No thyroid disease, diabetes mellitus, thyroid cancer, Hair loss, heat intolerance or cold intolerance Skin Skin: Yes rash; no changing moles Breast Breast: No left breast lump, right breast lump, nipple discharge, breast pain, abnormal mammogram, abnormal US or breast enlargement Musc Musculoskeletal: Yes back problems and arthritis; no rheumatoid arthritis, gout or joint pain Cardio Cardiovascular: Yes murmur, heart disease, atrial fibrillation, high blood pressure, heart attack and heart stent; no pacemaker, palpitations, shortness of breat with exertion or chest pain Psych Psychiatric: No depression, anxiety or hearing voices Resp Respiratory: No shortness of breath, No sleep apnea, No cough, No COPD, No asthma, No emphysema, No wheezing Gastro Gastrointestinal: No abdominal pain, No nausea or vomiting, No diarrhea, No constipation, Yes blood in stool, Yes acid reflux, No hemorrhoids, Yes ulcers, No gallbladder problem, No black,tarry stools Afshin Hematologic: Yes blood thinners, No blood disorders, Yes bleeding, No anemia, Yes blood clots Neuro Neurologic: No system reviewed and no additional complaints, except as docu, No as per HPI, No abnormal walking, No abnormal hearing, No abnormal movements, No abnormal speech, No behavioral changes, No burning sensations, No confusion, No seizure-like activity, No unsteadiness, No dizziness, No localized weakness, No frequent falls, No headache(s), No lack of coordination, No loss of vision, No memory loss, No numbness, No other visual disturbances, No radiating pain, No restless legs, No sensory deficit, No fainting, No tingling, No tremor(s), No weakness, No other Exam Const General: cooperative, healthy appearing, comfortable, no acute distress Nutritional Appearance: average body habitus Orientation: alert, awake [facility] Head: normal to inspection Eyes General: appearance normal, both eyes and all related structures Chest Breast Palpation: No nipple discharge Resp Effort & Inspection: normal respiratory effort Auscultation: clear to auscultation bilaterally Cardio Rate: regular rate Rhythm: regular rhythm Heart Sounds: murmur Other: 2/6 systolic ejection murmur Bilateral radials are 2+. Bilateral brachials 2+. Bilateral carotids 2+. No carotid bruits GI Palpation: soft, no hepatosplenomegaly Auscultation: normal bowel sounds Skin General: no rashes or lesions noted Neuro Cognition: normal cognition Extrem General: no calf tenderness Psych Affect: normal affect Assessment & Plan Problems 1. Rectal bleeding K62.5 Plan 84-year-old female with a history of paroxysmal atrial fibrillation on beta-blockade twice daily with recent infarct to the right kidney. Not clear to me that it is been determined whether this was cardiac in etiology or possible mural thrombus from the aorta. She was placed on anticoagulation but then developed rectal bleeding. As far as I can tell however it appears that her hemoglobin dropped without evidence of the rectal bleeding. The patient states that she still has episodes at home where she can feel her heart racing. Her anticoagulation is currently on hold Certainly we could proceed with a colonoscopy with possible biopsy or polypectomy as indicated. The patient is aware that at age 84 she is at increased risk of this procedure. I will also try to discuss with Dr. Bryce Esparza the patient's paroxysmal atrial fibrillation and as to whether there is any additional options for rate control. She has had an opportunity to ask and have questions answered. We will try to schedule and expedite her care as she is currently essentially off of anticoagulation. Cc: OLE Malagon and Dr. Bryce Esparza and Dr.Chitra Willam Hays M.D., F.A.C.S. Assessment & Plan Problems 1. Rectal bleeding K62.5 2. Internal bleeding hemorrhoids K64.8 Plan 84-year-old female. She has bleeding internal hemorrhoids. 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 She needs to resume her anticoagulation. I have discussed with her technique, benefit, risks, alternatives of no surgical intervention versus hemorrhoidal banding versus PPH hemorrhoidal pexy versus surgical hemorrhoidectomy. I believe that in age 84-year-old female the most efficacious way to approach this would be with a PPH stapled hemorrhoidopexy. I believe that I could put her back on her anticoagulation in an expedited period of time. I believe that the hemorrhoidal banding would require a much longer period of time off her anticoagulation. I believe that the surgical hemorrhoidectomy would be quite a significant procedure for a 84-year-old. I have discussed the technique, benefit, risk, alternatives. She has had an opportunity to ask and have questions answered. She is aware that she is presenting during the Covid-19 pandemic. She is aware that the [facility] notes a low local incidence. Based upon the information available I have offered her PPH stapled hemorrhoidopexy.. She concurs and we will schedule and expect her care so that we can resume her anticoagulation at her earliest convenience. I appreciate the ongoing opportunity of assisting with her surgical care Cc: Dr. Whitney Hays M.D., F.A.C.S. Coding Level of Care Code Attention Hazel Diagnoses Rectal bleeding K62.5 Internal bleeding hemorrhoids K64.8 Comment [id number] 10/22/19 1421 <Electronically signed by Gigi Hays MD> Date Gigi Hays MD I have re-examined the patient. There are no clinical changes since date of exam. Procedure Criteria Procedure Type: Elective COVID Risk Discussion: The surgeon/proceduralist and patient have discussed in detail the risk of exposure to and/or potential harm posed by the COVID-19 virus with having a surgery/procedure at this time versus the risk of delaying the surgery/procedure. It is not possible to know either the risk of delaying the surgery or procedure or chance of getting an infection with perfect accuracy, but a joint decision was made between the patient and the surgeon/proceduralist to proceed at this time with the scheduled surgery/procedure as indicated on the consent form.
--- NOTE | 2019-10-24 07:09 | PCM.DC.REC ---
Discharge Diet: No Restrictions Discharge Activity: Return to Normal Activity, May Not Drive - while you are taking narcotic pain medications. Do not drive, work with heavy equipment or sign legal documents for 24 hours after your surgery. Additional Activity Instructions:: You may start with a light diet encouraging soups and liquids. You may advance as tolerated. I would avoid excessive gas producing stool or constipating foods like cheese. You may utilize sitz baths in warm soapy water for comfort. Do not insert any suppositories. Additional Dressing/Incision Instructions:: There is a foam packing within the rectum that will be extruded. You should expect small amounts of blood in streaking and mucus. Please contact my office on Tuesday morning with a progress report so we can help decide when you should resume your anticoagulation Allergies/Adverse Reactions: Allergies codeine Adverse Reaction (Verified 10/23/19 09:09) Nausea lisinopril Adverse Reaction (Verified 10/23/19 09:09) Cough Medications to take at Discharge Atorvastatin Calcium 80 mg PO QHS 11/14/18 Magnesium Gluconate 27 mg PO DAILY 11/14/18 Vit C/Vit E AC/Lut/Copper/Zinc [Preservision Lutein Softgel] 1 cap PO BID 11/14/18 metoprolol tartrate 100 mg tablet 100 mg PO BID tab 01/31/19 losartan 25 mg tablet 25 mg PO DAILY #30 tab 06/05/19 amlodipine 10 mg tablet 10 mg PO DAILY #90 tab 08/24/19 Cholecalciferol (VIT D3) [Vitamin D3] 1,000 unit PO DAILY 09/26/19 Cyanocobalamin (Vitamin B-12) [B-12] 1,000 mcg PO DAILY 09/26/19 Sulfasalazine 500 mg PO Q6H PRN PRN 09/26/19 apixaban 5 mg tablet 5 mg PO BID tab 10/11/19 aspirin 81 mg tablet,delayed release 81 mg PO DAILY@0800 #1 tab 10/11/19 Hydrocodone Bitart/Apap 5-325 [[place] 5MG-325MG] 1 tab PO Q6H PRN PRN 2 Days #5 tab 10/24/19 Metronidazole 250 mg PO TID #9 tab 10/24/19 The following prescriptions were given: Metronidazole 250 mg PO TID #9 tab Transmission Status: Pending to [facility] Hydrocodone Bitart/Apap 5-325 [[place] 5MG-325MG] 1 tab PO Q6H PRN PRN 2 Days #5 tab PRN Reason: Pain Transmission Status: Sent to [facility] Primary Care Physician: Whitney Quarles MD [Primary Care Provider] - Test Results: Test results from this visit will be discussed in further detail at your follow-up appointment, if applicable. Please Follow Up With: Gigi Hays MD - [phone] When: Plan to have a follow up approximately 3 weeks after surgery.
[2019-10-24] MEDS: Lubricating Jelly 60 GM Tube 30 GM TOPICAL (07:41)
[2019-10-24] MEDS: BUPIVACAINE LIPOSOME/PF 20 ML VIAL OPERA.SITE (07:41)
[2019-10-24] MEDS: Bupivacaine Mpf 0.5% 30 ML VIAL (07:41)
[2019-10-24] MEDS: Dibucaine 30 GM Tube 1 APPLIC (08:04)
--- NOTE | 2019-10-24 08:05 | PCM.OPRPT ---
Problem List (1) Internal bleeding hemorrhoids Status: Acute Report of Operation Date of Procedure: 10/24/19 Pre-Operative Diagnosis: Bleeding internal hemorrhoids Post-Operative Diagnosis: Same Surgery/Procedure Performed:: PPH stapled hemorrhoidopexy Description of Surgical Findings:: Timeout and informed consent was obtained. 84-year-old female was taken to the operating room. She underwent general endotracheal intubation esthesia. She was placed prone on the table. Clindamycin 900 mg were given intravenously. She was placed in a prone jackknife position with careful shoulder and pelvic roll. Perianal area was sterilely prepped and draped. Digital exam revealed exuberant internal hemorrhoids grade 3 requiring manual reduction. I placed the external retaining ring speculum of the Ethicon PPH stapling unit. I then placed the suture assist device. Using 0 Prolene in a circumferential fashion 4 cm from the anal verge I placed a continuous circumferential suture. At the completion I tested that suture line noted to be intact. I did a transvaginal examination assuring that the vaginal wall was separate. It is of note that I had also used 0.5% Marcaine 25 cc mixed with 20 cc of Exparel and I had injected that at the start of the procedure taking care to try to separate some of the vaginal wall away from the rectal tissue as well. I then inserted the stapler and I secured the Prolene to the stapler anvil. I then advanced it through the retaining holes and placed an air knot. I used that to help pull on the suture line and secured the stapler. Measurements confirmed that it was 4 cm from the anal rectal verge. I then fired the stapler. Left several minutes to assure hemostasis. I then carefully removed the stapler. I used a lighted speculum to inspect the staple line. I palpated the staple line. It appeared to be approximately 4 to 5 cm proximal from the anal rectal verge and appeared to be absolutely nicely intact. There was no bleeding. Additional suturing was not required. I took Gelfoam treated with dibucaine ointment inserted and into the rectum. The remainder of the local was used around the periphery of the anus. Cover dressings were applied. Sponge and instrument and needle counts were reported the surgery correct I inspected the tissue from the stapler it was circumferentially completely intact that was then submitted. Specimens rectal mucosa. Drains none. Blood loss minimal. Gigi Hays M.D., F.A.C.S. Type of Anesthesia:: General Anesthesiologist: Stalin Medina
[2019-10-24 08:27] VITALS: BP 141/73; BP 164/64; PULSE 68; RESP 14; TEMP 36.3; O2SAT 98
[2019-10-24 08:30] VITALS: BP 138/60; BP 164/64; PULSE 70; RESP 14; O2SAT 98
[2019-10-24 08:45] VITALS: BP 135/58; BP 164/64; PULSE 63; RESP 14; O2SAT 97
[2019-10-24 08:56] VITALS: BP 139/61; BP 164/64; PULSE 57; RESP 14; TEMP 36.3; O2SAT 98
[2019-10-24 10:52] VITALS: BP 163/68; BP 164/64; PULSE 56; RESP 16; TEMP 36.4; O2SAT 100
--- NOTE | 2019-10-24 10:56 | SUR.PHASEII ---
pt aware to hold blood thinner until after speaking with dr aguilar on tuesday scant red drainage noted on rectal pad
== END 2019-10-24 10:55 | disposition home or self-care (01) ==
LOC: SDC 05:45 → AC 05:46
PROVIDERS: Physician Assistant; PCP Internal Medicine; Referring Provider Surgery; Visit Provider Surgery
PROC: (CPT 46947; principal; 2019-10-24 07:15)
DX: K64.8 Other hemorrhoids (principal); K62.5 Hemorrhage of anus and rectum; I25.10 Atherosclerotic heart disease of native coronary artery without angina pectoris; I48.0 Paroxysmal atrial fibrillation; I25.2 Old myocardial infarction; I10 Essential (primary) hypertension; E11.9 Type 2 diabetes mellitus without complications; E78.00 Pure hypercholesterolemia, unspecified; Z95.5 Presence of coronary angioplasty implant and graft; Z79.82 Long term (current) use of aspirin; Z79.01 Long term (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; Z79.899 Other long term (current) drug therapy; Z11.59 Encounter for screening for other viral diseases
CPT/HCPCS: 00902; 46947; 87635; 88304; G2023; J7120; J2405; U0003

== ENCOUNTER → 2019-11-01 11:13 | Outpatient (CLI) | payer MEDICARE, SELFPAY ==
[2019-10-29 08:09] VITALS: BMI 27.3
[2019-11-01 11:29] LABS: Mucous, Urine 0 SEEN /hpf (<or=2+)
[2019-11-01 11:39] LABS: Color, Urine Yellow (Yellow); Glucose, Dipstick Normal (Normal); Ketone-Dipstick 5 mg/dl (Negative); Leukocyte Esterase-Dipstick 500 /ul (Negative); Nitrite-Dipstick Positive (Negative); Occult Blood-Urine 250 /ul (Negative); Protein-Dipstick 100 mg/dl (Negative); Specific Gravity, Urine 1.015 (1.002-1.030); Urine Bilirubin Dipstick Negative (Negative); Urine Clarity Cloudy (Clear); Urine Urobilinogen Normal (Normal)
[2019-11-01 11:47] LABS: White Blood Cells >100 SEEN /hpf (0-5)
[2019-11-01 11:50] LABS: Bacteria 4+ /hpf (None Seen); Red Blood Cells-Urine 10-25 SEEN /hpf (0-5); Squamous Epithelial Cells - UA 0-5 SEEN /hpf (5-10)
== END ==
PROVIDERS: PCP Internal Medicine; Referring Provider Surgery; Visit Provider Surgery
DX: R30.0 Dysuria (principal)
CPT/HCPCS: 81001; 87077; 87086; 87088; 87186

== ENCOUNTER 2019-11-20 08:01 | Inpatient (IN) | payer MEDICARE, SELFPAY ==
[2019-10-29 08:09] VITALS: BMI 27.3
[2019-11-20] VITALS (9 sets, daily range): BP systolic 125–143; BP diastolic 53–73; PULSE 73–97; RESP 16–18; TEMP 36.2–37.8; O2SAT 93–98; BMI 27.6
--- NOTE | 2019-11-20 08:14 | CT_ITS ---
STUDY: CT ABDOMEN AND PELVIS WITH CONTRAST REASON FOR EXAM: Female, 84 years old. RECTAL BLEEDING X 1 WK, ON BLOOD THINNERS. Prior GRAHAM/BSO. RADIATION DOSAGE (If Supplied By Facility): CTDIvol = ( 12.96 ) mGy, DLP = ( 821.85 ) mGycm TECHNIQUE: Transaxial images were obtained from the dome of the diaphragm to the symphysis pubis with oral contrast. Oral and amp; IV Gastrografin and amp; 100mL Isovue-300 was administered. Sagittal and coronal images were reconstructed. Individualized dose optimization techniques were used for this CT. COMPARISON: Comparison is made with prior examination dated September 26, 2019. FINDINGS: Minimal increased markings at the lung bases suggestive of atelectasis. Coronary artery calcification. Normal liver. Mildly distended gallbladder. I suspect sludge at the base of the gallbladder lumen. Normal spleen. Normal pancreas. Normal bilateral adrenal glands. Stable 2 cm cyst in the lower pole of the right kidney. There is evidence of a cortical thinning along the lateral aspect of the right kidney at the site of the prior area of decreased attenuation suggestive of a scar most likely secondary to prior focal infarction. Stable 1.2 cm cyst in the anterior upper pole of the left kidney. There is a small hiatal hernia. Normal small intestine. There is diffuse circumferential wall thickening of the left hemicolon from the region of the splenic flexure down to the rectum. Colitis should be ruled out. This is suggestive of possible ischemic colitis. There is non-visualization of the appendix. There is diffuse atherosclerotic calcification of the abdominal aorta and its major visceral branches, without a demonstrated aneurysm. Normal inferior vena cava. Normal retroperitoneum. Normal urinary bladder. There is absence of the uterus consistent with a prior hysterectomy. Normal abdominal wall. There are mild degenerative changes of the visualized lumbar spine. CT/Abdomen/Pelvis WITH Contrast IMPRESSION: Findings suggestive of colitis involving the left hemicolon. Ischemic colitis should be ruled out. Mildly distended gallbladder with possible sludge in the gallbladder lumen. Electronically Signed: Saad Salamanca, at 10:32 EDT , Service support ,
--- NOTE | 2019-11-20 08:16 | EKG12_ITS ---
Test Reason : BLEEDING Blood Pressure : / mmHG Vent. Rate : 081 BPM Atrial Rate : 081 BPM P-R Int : 180 ms QRS Dur : 080 ms QT Int : 372 ms P-R-T Axes : 059 012 023 degrees QTc Int : 432 ms Normal sinus rhythm Normal ECG Confirmed by CECILIO ISIDRO ([id number]), continuity editor PATRICK CLAIRE ([id number]) on 11/22/2019 11:50:18 AM Referred By: JUJU Confirmed By:CECILIO ISIDRO
[2019-11-20] MEDS: 0.9% Normal Saline 1,000 ML 125 ML IV ×2 (08:20→17:50)
--- NOTE | 2019-11-20 08:20 | ED.DCSUM_ITS ---
- ER Visit Summary Date of Service: 11/20/19 Chief Complaint: Rectal bleeding History of Present Illness: The patient is a 84 F who presents from home by EMS. She has a history of atrial fibrillation, mural aortic thrombus, renal infarct, coronary disease, diabetes, hypertension, hyperlipidemia. She is currently on aspirin and Eliquis. She has a history of rectal bleeding while on blood thinners. She had a colonoscopy on October 19, 2019 that showed internal hemorrhoids and diverticulosis, but no specimens were collected. She had stapled internal hemorrhoids on October 24, [address] Hays. She has been doing well, and according the patient, he signed off last week. Over the past week, she has had increasing mucus discharge from her rectum. It is worse when she stands up. She said it pours out. Over the last couple days, she has had increasing bright red blood as well. She denies fever or chills. Denies lightheadedness. Denies any chest pain or shortness of breath. Denies back pain or trouble urinating. She does have some abdominal pain occasionally, but denies any vomiting, nausea, diarrhea, or constipation. Physical Examination: Afebrile and vital signs are unremarkable. Patient alert and oriented. No acute distress. Abdomen is soft and nontender. Rectal exam showed perirectal erythema with moist skin. There was no gross blood or masses palpable. This was chaperoned by Cora QUINTANA. Test Results: EKG, labs, Hemoccult testing pending. Given the change in her bowel movements with abdominal pain, will check a CT as well. Waiting on labs prior to CT. Emergency Department Course and Treatment: Patient was n.p.o. Placed on a monitor. Declined pain and nausea medicine while awaiting results. EKG showed sinus rhythm at a rate of 81 with no abnormalities. White count is elevated at 15.3. Hemoglobin stable at 12.4. Potassium 3.4, glucose 112, BUN 22, creatinine 1.09, AST 14. INR 1.9 and PTT 37.6. Hemoccult testing positive. CT showed colitis cannot rule out ischemia. She has a distended gallbladder and sludge. Patient has minimal pain, so I do not think this is ischemia. She was discussed with Dr. River. The patient already had IV contrast and will not be a candidate for CTA at this point. He advised hydration and see how she does. No further intervention at this time regardless. Patient was started on Cipro and Flagyl. Hospitalist admitted. She is hemodynamically stable with a normal EKG. She has no symptoms or signs of COVID-19 infection. Treatment Plan: As above Disposition: Admission Impression: Colitis This note was generated with [employer] dictation software. It may contain incorrect words, spelling, and punctuation that were not noted in review of the chart prior to signing ED Disposition - Plan for ED Patient: Referrals: Whitney Quarles MD [Primary Care Provider] -
[2019-11-20 08:26] LABS: Absolute Lymphocyte Count 2.97 X10^3/uL (0.83-4.51); Absolute Neutrophil Count 9.7 X10^3/uL (2.0-7.7); Basophil# 0.09 X10^3/uL; Basophil% 0.6 % (0-1); Eosinophil# 0.16 X10^3/uL; Hematocrit 38.9 % (37-47); Hemoglobin 12.4 g/dL (12.0-15.0); Lymphocyte # 2.97 X10^3/ul (4.0); Lymphocyte % 19.4 % (19-41); Mean Corp Hgb Conc 31.9 g/dL (32-36); Mean Corpuscular Hgb 30.5 pg (27.0-32.0); Mean Corpuscular Volume 95.8 fL (81-99); Mean Platelet Vol. 10.2 fl (6.2-12.0); Monocyte# 2.17 X10^3/uL; Monocyte% 14.2 % (0-10); NRBC Flagged by Analyzer 0 % (0-5); Neutrophil # 9.65 X10^3/uL (2.7-7.7); Neutrophil % 63.3 % (47-70); POSITIVE DIFFERENTIAL YES; POSITIVE MORPHOLOGY YES; Platelet Count 208 K/mm3 (150-450); RBC Distribution Width CV 13.2 % (11.6-14.6); RBC Distribution Width SD 46.3 fl (35.1-43.9); Red Blood Count 4.06 M/mm3 (4.2-5.4); White Blood Count 15.3 K/mm3 (4.4-11.0)
[2019-11-20 08:31] LABS: International Normalized Ratio 1.9; Prothrombin Time (Protime)PT. 21.2 SECONDS (11.7-14.9)
[2019-11-20 08:33] LABS: Differential Indicated SCAN CRITERIA MET; Partial Thromboplast Time 37.6 Seconds (24.1-36.2)
[2019-11-20 08:36] LABS: ALB/GLOB Ratio 0.7 RATIO (0.9-2.4); AST(SGOT) 14 U/L (15-37); Alanine Aminotransfer ALT/SGPT 18 U/L (13-56); Albumin, Serum 2.8 g/dL (3.2-5.0); Alkaline Phosphatase 72 U/L (45-117); Anion Gap 9 (5-15); BUN 22 mg/dL (7-18); BUN/Creat Ratio 20.2 RATIO (10-20); Calcium,Total 8.4 mg/dL (8.5-10.1); Chloride 106 mmol/L (98-107); Creatinine, Serum 1.09 mg/dL (0.55-1.02); EST Glomerular Filtration Rate 51 mL/min (>60); Est Glom Filt Rate - Afr Amer 62 mL/min (>60); Estimated Creatinine Clearance 30.39 ml/min; Globulin 3.9 g/dL (2.2-4.2); Glucose 112 mg/dL (74-106); Potassium 3.4 mmol/L (3.5-5.1); Protein, Total 6.7 g/dL (6.4-8.2); Sodium Level 139 mmol/L (136-145)
--- NOTE | 2019-11-20 11:02 | NURSING ---
DR BOUBACAR MATUTE
--- NOTE | 2019-11-20 11:16 | PCM.HP.STD ---
Problem List (1) Acute colitis Status: Acute (2) Urinary retention Status: Chronic (3) Internal bleeding hemorrhoids Status: Acute (4) Rectal bleeding Status: Acute (5) Hx of lower gastrointestinal bleeding Status: Chronic (6) Renal infarct Status: Acute (7) Aortic mural thrombus Status: Chronic (8) Presence of stent in coronary artery Status: Chronic Comment: PTCA/HSABNAM x1 to RCA and PTCA/SHABNAM x2 to LCX 06/20/15 @ [facility] (9) Essential hypertension Status: Chronic (10) Atherosclerotic heart disease of [place] coronary artery without angina pectoris Status: Chronic Qualifiers: (11) Pure hypercholesterolemia Status: Chronic (12) Diabetes mellitus type II, controlled Status: Chronic Qualifiers: (13) PAF (paroxysmal atrial fibrillation) Status: Chronic History of Present Illness Date of Admission: 11/20/19 Chief Complaint: Rectal bleeding for about 5 days The patient is a 84 year old F with multiple comorbidities including aortic mural thrombus, recent right renal infarct and internal bleeding brought in status post hemorrhoidopexy in October [address] Gigi Hays came to ER with mild mucus mixed rectal bleeding for about 5 days. It was mild pinkish in color for 2 days and then was right from last Tuesday and intermittent. Patient also gets intermittent left-sided abdominal cramps, colicky in nature with complete resolution in between pain episodes. Patient had subjective fever on weekend but has not measured. No nausea vomiting, cough, chest pain or shortness of breath. Patient blood pressure and heart rate and H&H was in acceptable limit in ER. Heart rate 93, no hypoxia or tachypnea. H&H 12.4/39. [] She also had CT abdomen with oral and IV contrast which showed diffuse circumferential wall thickening of left hemicolon from splenic flexure to the rectum. There is also suggestion of possible ischemic colitis. Diffuse atherosclerotic calcification of abdominal aorta and its major visceral branches. Recent focal infarction in lateral aspect of right kidney. Patient is started on IV fluid normal saline, IV Cipro and Flagyl for suspected left-sided colitis and admitted. Past Medical History Past Medical History (Chronic Problems): Chronic Problems (Last Reviewed 10/24/19 @ 15:13 by Sharona Rowe) Urinary retention (Chronic) Hx of lower gastrointestinal bleeding (Chronic) Aortic mural thrombus (Chronic) Presence of stent in coronary artery (Chronic ~06/20/15) PTCA/SHABNAM x1 to RCA and PTCA/SHABNAM x2 to LCX 06/20/15 @ [facility] Essential hypertension (Chronic) Atherosclerotic heart disease of [place] coronary artery without angina pectoris (Chronic) Pure hypercholesterolemia (Chronic) Diabetes mellitus type II, controlled (Chronic) PAF (paroxysmal atrial fibrillation) (Chronic) Medical History: Medical History (Last Reviewed 10/24/19 @ 15:13 by Sharona Rowe) Urinary retention (Acute) R33.9 Internal bleeding hemorrhoids (Acute) K64.8 Rectal bleeding (Acute) K62.5 Presence of stent in coronary artery (Chronic) Onset Date: ~06/20/15 Z95.5 PTCA/SHABNAM x1 to RCA and PTCA/SHABNAM x2 to LCX 06/20/15 @ [facility] Essential hypertension (Chronic) I10 Atherosclerotic heart disease of [place] coronary artery without angina pectoris (Chronic) I25.10 Pure hypercholesterolemia (Chronic) E78.00 Diabetes mellitus type II, controlled (Chronic) E11.9 PAF (paroxysmal atrial fibrillation) (Chronic) I48.0 History of basal cell carcinoma Z85.828 Left Nasal sidewall History of non-ST elevation myocardial infarction (NSTEMI) I25.2 Diverticulosis K57.90 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 Macular degeneration H35.30 Allergies codeine Adverse Reaction (Verified 11/20/19 08:05) Nausea lisinopril Adverse Reaction (Verified 11/20/19 08:05) Cough Home Medications: Ambulatory Orders Medication Instructions Recorded Atorvastatin Calcium 80 mg PO QHS 11/14/18 Magnesium Gluconate 27 mg PO DAILY 11/14/18 Vit C/Vit E AC/Lut/Copper/Zinc 1 cap PO BID 11/14/18 [Preservision Lutein Softgel] metoprolol tartrate 100 mg tablet 100 mg PO BID tab 01/31/19 losartan 25 mg tablet 25 mg PO DAILY #30 tab 06/05/19 amlodipine 10 mg tablet 10 mg PO DAILY #90 tab 08/24/19 Cholecalciferol (VIT D3) [Vitamin 1,000 unit PO DAILY 09/26/19 D3] Cyanocobalamin (Vitamin B-12) 1,000 mcg PO DAILY 09/26/19 [B-12] Sulfasalazine 500 mg PO Q6H PRN PRN 09/26/19 apixaban 5 mg tablet 5 mg PO BID tab 10/11/19 aspirin 81 mg tablet,delayed 81 mg PO DAILY@0800 #1 tab 10/11/19 release Surgical History: Surgical History (Last Updated 10/24/19 @ 15:13 by Sharona Rowe) History of colonoscopy Onset Date: ~09/2019 Z98.890 History of hemorrhoidectomy Onset Date: ~10/2019 Z98.890 Presence of coronary angioplasty implant and graft Onset Date: ~06/20/15 Z95.5 PTCA/SHABNAM x1 to RCA and PTCA/SHABNAM x2 to LCX 06/20/15 @ [facility] History of bilateral oophorectomy Z90.722 History of repair of rotator cuff Z98.890 History of total hysterectomy Z90.710 Surgical History: - - PCI x 3, Hysterectomy, BL JAYSHREE for cysts, Appendectomy, Recent nasal surgery/cauterization. 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 Smoking Status: Never smoker - *Family History Maternal Family History: Family History (Last Reviewed 10/24/19 @ 15:13 by Sharona Rowe) Mother Hypertension Heart disease Diabetes Father Diabetes Hypertension Sister Hypertension Diabetes Sister Diabetes Hypertension Sister Diabetes Hypertension Sister Diabetes Hypertension History Items: Diabetes, Heart Disease Paternal Family History: Family History (Last Reviewed 10/24/19 @ 15:13 by Sharona Rowe) Mother Hypertension Heart disease Diabetes Father Diabetes Hypertension Sister Hypertension Diabetes Sister Diabetes Hypertension Sister Diabetes Hypertension Sister Diabetes Hypertension History Items: Diabetes, Heart Disease, Hypertension Review of Systems Constitutional: Denies: Chills, Fever, Weight Change HEENT: Denies: Head Aches, Sinus Congestion, Sinus Drainage Cardiovascular: Denies: Chest Pain, Palpitations Respiratory: Denies: Cough, Shortness of breath at rest, Sputum production Gastrointestinal: Reports: Abdominal Pain, Diarrhea, Hematochezia. Denies: Constipation, Dyspepsia, Hematemesis, Nausea, Melena, Vomiting Genitourinary: Denies: Dysuria Musculoskeletal: Denies: Joint Pain, Joint Tenderness Skin: Denies: Rash, Wounds Neurological: Reports: Balance problems. Denies: Focal weakness, Numbness, Tingling Psychiatric: Denies: Anxiety, Depression, Homicidal Ideations, Suicidal Ideations Hematologic/ Lymphatic: Denies: Easy Bruising, Easy Bleeding VTE Information - Inpt Only VTE Present on Admission: No VTE Mechan Device Prophylaxis: SCD's VTE Pharm Prophylaxis ordered?: No Reason prophylaxis not ordered:: Procedure Not Indicated - Lower GI bleed but will consider later on Patient Problems: Active and Suspected Problems (Last Reviewed 10/24/19 @ 15:13 by Sharona Rowe) Acute colitis (Acute) - Physical Exam Vitals/I&O's: Vital Signs Temp Pulse Resp BP Pulse Ox 97.9 F 86 16 135/62 H 98 11/20/19 09:49 11/20/19 09:49 11/20/19 09:49 11/20/19 09:49 11/20/19 09:49 Oxygen Delivery Method Room Air Weight: 151 lb 0.266 oz Body Mass Index (BMI) 27.6 General: Alert, Oriented x3, Cooperative HEENT: Atraumatic, PERRLA, EOMI, Normocephalic Neck: Supple, No JVD, Negative Carotid Bruits Lungs: Clear to auscultation, Normal air movement, No rhonchi, No wheeze, No rales Cardiovascular: Regular rate, Regular Rhythm, Normal S1, Normal S2, No murmurs Abdomen: Bowel Sounds Present, Soft, Non-Distended, No Hepato-splenomegaly, Hypoactive Bowel Sounds, Hernia - Tenderness present over left upper and left lower quadrant to hypogastric region. Extremities: No edema, Capillary Refill Less than 3 Seconds Skin: No rashes, No breakdown Musculoskeletal: No Tenderness to Palpation of Joints or Extremities Neurological: Cranial nerves II-XII grossly intact, Deep Tendon Reflexes 2+/4 and Symmetrical, Neuro grossly intact, Motor Exam 5/5 strength throughout Psych/Mental Status: Normal Affect, Appropriate Microbiology Past 72 Hours 11/20/19 08:05 Stool Stool Occult Blood (PATIENCE) - Final Occult Blood Positive Laboratory Results 11/20/19 08:05: WBC 15.3 H, RBC 4.06 L, Hgb 12.4, Hct 38.9, MCV 95.8, MCH 30.5, MCHC 31.9 L, RDW Std Deviation 46.3 H, RDW Coeff of Yoli 13.2, Plt Count 208, MPV 10.2, Immature Gran % (Auto) 1.500 H, Neut % (Auto) 63.3, Lymph % (Auto) 19.4, Stanton % (Auto) 14.2 H, Eos % (Auto) 1.0, Baso % (Auto) 0.6, Absolute Neuts (auto) 9.7 H, Absolute Lymphs (auto) 2.97, Nucleated RBC % 0, Differential Comment , Diff Path Review September11/20/19 08:05: PT 21.2 H, INR 1.9, APTT 37.6 H 11/20/19 08:05: Sodium 139, Potassium 3.4 L, Chloride 106, Carbon Dioxide 24.0, Anion Gap 9, BUN 22 H, Creatinine 1.09 H, Estim Creat Clear Calc 30.39, Est GFR (MDRD) Af Amer 62, Est GFR (MDRD) Non-Af 51 L, BUN/Creatinine Ratio 20.2 H, Glucose 112 H, Calcium 8.4 L, Total Bilirubin 0.40, AST 14 L, ALT 18, Alkaline Phosphatase 72, Total Protein 6.7, Albumin 2.8 L, Globulin 3.9, Albumin/Globulin Ratio 0.7 L Current Medications Sodium Chloride () 1,000 mls @ 125 mls/hr IV .Q8H REJI Last Admin: 11/20/19 08:20 Dose: 125 mls/hr Documented by: Ciprofloxacin (Cipro) 400 mg in 200 mls @ 200 mls/hr IV X1 ONE Stop: 11/20/19 12:09 Metronidazole (Flagyl) 500 mg in 100 mls @ 100 mls/hr IV X1 ONE Stop: 11/20/19 12:09 Assessment/Plan All Active Problems (Last Reviewed 10/24/19 @ 15:13 by Sharona Rowe) Acute colitis (Acute) Internal bleeding hemorrhoids (Acute) Rectal bleeding (Acute) Renal infarct (Acute) The patient is a 84 year old F with multiple comorbidities including aortic mural thrombus, recent right renal infarct and internal bleeding brought in status post hemorrhoidopexy in October [address] Gigi Hays was admitted with mild mucus mixed rectal bleeding for about 5 days and left-sided abdominal cramps consistent with lower GI bleed probably secondary to infectious colitis or ischemic colitis. CT abdomen with oral and IV contrast which showed diffuse circumferential wall thickening of left hemicolon from splenic flexure to the rectum. There is also suggestion of possible ischemic colitis. Diffuse atherosclerotic calcification of abdominal aorta and its major visceral branches. Recent focal infarction in lateral aspect of right kidney. 1. Acute left-sided colitis probably infectious or less likely ischemic colitis: Patient is being admitted on [facility] floor. Patient was seen by surgeon Dr. Gigi Hays. Consult reviewed and appreciated. Continue IV fluid normal saline 125 mils per hour with IV Cipro and Flagyl. Stool for occult blood is positive. Stool for leukocytes and enteric bacteriology panel ordered. 2. Cardiovascular conditions: Coronary artery disease status post stents with STEMI in 2016 for which she was transferred to [facility], paroxysmal A. 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 Continue IV fluid. Patient is still sometimes get right sided renal angle pain but is much less severe and occasional. During previous admission in September 2019, CT abdomen pelvis showed 3.5 x 2.3 cm of hypodensity in midportion of right kidney involving both cortex and medulla. At that time she was initially started on Lovenox and was transitioned to Eliquis. Recent Echocardiogram in September 2019 demonstrated an EF of 65%, stage II diastolic dysfunction, mild aortic stenosis, mild tricuspid valve insufficiency. 3. CAD with history of stents and history of paroxysmal A. fib on continue statin, metoprolol. Twelve-lead EKG shows normal sinus rhythm at 81 bpm. 4. Hypertension-stable, continue amlodipine, losartan, metoprolol. 5. Type 2 diabetes mellitus- diet controlled. Accu-Chek before meals and at bedtime and cover with Hem-o-jace sliding scale 6. Hyperlipidemia-continue statin. DVT prophylaxis: Bilateral SCDs. Heparin 5000 subcutaneous twice daily. Discontinue if platelet count drops less than 50,000 or hemoglobin less than 8 g% Living will/advanced directive/end of life care: Patient does have living will or advanced directive. After discussion of procedures involved with full code, DNR CC arrest and DNR CC, the patient opted for DNR-CC Arrest with no intubation Patient does not want artificial life support including intubation, tube feed, ventilator and/chest compression, central venous catheter, vasopressor and DC shock if needed DNR CC arrest. Total time spent in [id number] encounter in discussion of advanced directive 16 minutes. Inpatient E&M: 57153 Init Hosp L3 Procedures: 07098 Advncd Care Plan 30 Min
--- NOTE | 2019-11-20 11:23 | NURSING ---
314 BOUBACAR LEFT SIDE COLITIS WITH GI BLEED
[2019-11-20] MEDS: metroNIDAZOLE 500 MG/100 ML BAG 100 MG IV ×2 (11:31→21:23)
--- NOTE | 2019-11-20 12:27 | CON.PCM_ITS ---
Problem List (1) Acute colitis Status: Acute Reason for Consult Date of Consultation: 11/20/19 History of Present Illness: The patient is a 84 year old F who I have been asked to see by Dr. Gonzalez for findings of rectal bleeding and suspected acute colitis. Written copy of my surgical consult recommendations will return to the charting. The patient was hospitalized at the [facility] September 26, 2019 with severe abdominal pain. 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 She has paroxysmal atrial fibrillation. 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 Apparently after discharge that she then noted some rectal bleeding. Prior to that her most recent colonoscopy was 2008. So on October 19, 2019 I performed a colonoscopy. Nonthrombosed internal hemorrhoids that prolapse with straining were noted. Diverticulosis of the sigmoid noted. The remainder of the exam was unremarkable. Subsequently on October 24, 2019 performed a PPH stapled hemorrhoidopexy. He was progressed well without complication and she was just seen in the office last week without complaint. She states that a couple days after office visit she had onset of diarrhea. She states that her intermittently has diarrhea as well. The patient has been sick for at least 5 days prior to her presentation to the emergency room. She states that 4 days ago she had severe abdominal pain noted the diarrhea noted rectal bleeding but did not seek help. She states that she phone called Dr. Quarles yesterday and arrangements were made for an outpatient CT scan November 26. Because of the patient's deterioration she presented to the emergency room and is mated through the ER today. Her white blood cell count is 15.3 hemoglobin 12.4 medical 38.9 platelet count 208,000. 63% neutrophils. PT is 21.2 with an INR of 1.9 and a PTT of 37.6. Potassium is slightly low at 3.4. BUN is slightly elevated 22 and creatinine 1.09. Liver function tests are normal. Patient is noted to have rectal bleeding and stool for occult blood was positive. A CT scan with IV contrast was obtained. The official report suggests possible ischemic colitis from the rectum up to the splenic flexure. It further demonstrates a healing infarct of the right kidney. It demonstrated gallbladder sludge. 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 The more infrarenal aorta has more calcific wall disease. I can detect the origins of the celiac access and the superior mesenteric artery and the inferior mesenteric artery. They all appear to be patent. Now because the patient had previously had rectal bleeding for period of time she was taken off of her apixaban to allow for the surgical treatment of the internal hemorrhoids which were felt at that time to be the source of the bleeding. Obviously she had no evidence of colitis at that time and this consultation for colitis is a separate and completely unrelated consultation in regards to rectal bleeding and is not correlated with her recent surgery. The patient states that she has mild abdominal pain. Claims that every time she stands up she has liquidy diarrhea and notes blood. She does not particularly describe a fever. She has markedly diminished her oral intake but she has been taking Gatorade. she is denying current nausea Past Medical History Past Medical History (Chronic Problems): Chronic Problems (Last Reviewed 10/24/19 @ 15:13 by Sharona Rowe) Hx of lower gastrointestinal bleeding (Chronic) Presence of stent in coronary artery (Chronic ~06/20/15) PTCA/SHABNAM x1 to RCA and PTCA/SHABNAM x2 to LCX 06/20/15 @ [facility] Essential hypertension (Chronic) Atherosclerotic heart disease of [place] coronary artery without angina pectoris (Chronic) Pure hypercholesterolemia (Chronic) Diabetes mellitus type II, controlled (Chronic) PAF (paroxysmal atrial fibrillation) (Chronic) Medical History: Medical History (Last Reviewed 10/24/19 @ 15:13 by Sharona Rowe) Urinary retention (Acute) R33.9 Internal bleeding hemorrhoids (Acute) K64.8 Rectal bleeding (Acute) K62.5 Presence of stent in coronary artery (Chronic) Onset Date: ~06/20/15 Z95.5 PTCA/SHABNAM x1 to RCA and PTCA/SHABNAM x2 to LCX 06/20/15 @ [facility] Essential hypertension (Chronic) I10 Atherosclerotic heart disease of [place] coronary artery without angina pectoris (Chronic) I25.10 Pure hypercholesterolemia (Chronic) E78.00 Diabetes mellitus type II, controlled (Chronic) E11.9 PAF (paroxysmal atrial fibrillation) (Chronic) I48.0 History of basal cell carcinoma Z85.828 Left Nasal sidewall History of non-ST elevation myocardial infarction (NSTEMI) I25.2 Diverticulosis K57.90 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 Macular degeneration H35.30 Allergies codeine Adverse Reaction (Verified 11/20/19 08:05) Nausea lisinopril Adverse Reaction (Verified 11/20/19 08:05) Cough Home Medications: Ambulatory Orders Medication Instructions Recorded Atorvastatin Calcium 80 mg PO QHS 11/14/18 Magnesium Gluconate 27 mg PO DAILY 11/14/18 Vit C/Vit E AC/Lut/Copper/Zinc 1 cap PO BID 11/14/18 [Preservision Lutein Softgel] metoprolol tartrate 100 mg tablet 100 mg PO BID tab 01/31/19 losartan 25 mg tablet 25 mg PO DAILY #30 tab 06/05/19 amlodipine 10 mg tablet 10 mg PO DAILY #90 tab 08/24/19 Cholecalciferol (VIT D3) [Vitamin 1,000 unit PO DAILY 09/26/19 D3] Cyanocobalamin (Vitamin B-12) 1,000 mcg PO DAILY 09/26/19 [B-12] Sulfasalazine 500 mg PO Q6H PRN PRN 09/26/19 apixaban 5 mg tablet 5 mg PO BID tab 10/11/19 aspirin 81 mg tablet,delayed 81 mg PO DAILY@0800 #1 tab 10/11/19 release Surgical History: Surgical History (Last Updated 10/24/19 @ 15:13 by Sharona Rowe) History of colonoscopy Onset Date: ~09/2019 Z98.890 History of hemorrhoidectomy Onset Date: ~10/2019 Z98.890 Presence of coronary angioplasty implant and graft Onset Date: ~06/20/15 Z95.5 PTCA/SHABNAM x1 to RCA and PTCA/SHABNAM x2 to LCX 06/20/15 @ [facility] History of bilateral oophorectomy Z90.722 History of repair of rotator cuff Z98.890 History of total hysterectomy Z90.710 Surgical History: - - PCI x 3, Hysterectomy, BL [facility] for cysts, Appendectomy, Recent nasal surgery/cauterization. 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 Smoking Status: Never smoker - *Family History Maternal Family History: Family History (Last Reviewed 10/24/19 @ 15:13 by Sharona Rowe) Mother Hypertension Heart disease Diabetes Father Diabetes Hypertension Sister Hypertension Diabetes Sister Diabetes Hypertension Sister Diabetes Hypertension Sister Diabetes Hypertension History Items: Diabetes, Heart Disease Paternal Family History: Family History (Last Reviewed 10/24/19 @ 15:13 by Sharona Rowe) Mother Hypertension Heart disease Diabetes Father Diabetes Hypertension Sister Hypertension Diabetes Sister Diabetes Hypertension Sister Diabetes Hypertension Sister Diabetes Hypertension History Items: Diabetes, Heart Disease, Hypertension Review of Systems Constitutional: Reports: Anorexia. Denies: Fever HEENT: Denies: Difficulty Swallowing Cardiovascular: Denies: Chest Pain Respiratory: Denies: Cough Gastrointestinal: Reports: Abdominal Pain, Diarrhea, Hematochezia. Denies: Vomiting Genitourinary: Denies: Dysuria Skin: Denies: Jaundice Hematologic/ Lymphatic: Denies: Adenopathy Patient Problems: Active and Suspected Problems (Last Reviewed 10/24/19 @ 15:13 by Sharona Rowe) Acute colitis (Acute) - Physical Exam Vitals/I&O's: Vital Signs Temp Pulse Resp BP Pulse Ox 97.2 F L 73 16 125/73 H 94 11/20/19 11:14 11/20/19 11:14 11/20/19 11:14 11/20/19 11:14 11/20/19 11:14 Oxygen Delivery Method Room Air Weight: 151 lb 0.266 oz Body Mass Index (BMI) 27.6 General: Alert, Oriented x3, Cooperative, No apparent distress HEENT: Atraumatic Oral: Dry Mucosa Neck: Supple Lungs: Clear to auscultation, Normal air movement Cardiovascular: Regular rate, Regular Rhythm Abdomen: Soft, Hypoactive Bowel Sounds, - - Mild tenderness palpation left midabdomen and left lower quadrant, no rebound or guarding Extremities: No Calf Tenderness Skin: No rashes Neurological: - - Cognition intact Psych/Mental Status: Normal Affect Microbiology Past 72 Hours 11/20/19 08:05 Stool Stool Occult Blood (PATIENCE) - Final Occult Blood Positive Laboratory Results 11/20/19 08:05: WBC 15.3 H, RBC 4.06 L, Hgb 12.4, Hct 38.9, MCV 95.8, MCH 30.5, MCHC 31.9 L, RDW Std Deviation 46.3 H, RDW Coeff of [place] 13.2, Plt Count 208, MPV 10.2, Immature Gran % (Auto) 1.500 H, Neut % (Auto) 63.3, Lymph % (Auto) 19.4, [place] % (Auto) 14.2 H, Eos % (Auto) 1.0, Baso % (Auto) 0.6, Absolute Neuts (auto) 9.7 H, Absolute Lymphs (auto) 2.97, Nucleated RBC % 0, Differential Comment , Diff Path Review September foll 11/20/19 08:05: PT 21.2 H, INR 1.9, APTT 37.6 H 11/20/19 08:05: Sodium 139, Potassium 3.4 L, Chloride 106, Carbon Dioxide 24.0, Anion Gap 9, BUN 22 H, Creatinine 1.09 H, Estim Creat Clear Calc 30.39, Est GFR (MDRD) Af Amer 62, Est GFR (MDRD) Non-Af 51 L, BUN/Creatinine Ratio 20.2 H, Glucose 112 H, Calcium 8.4 L, Total Bilirubin 0.40, AST 14 L, ALT 18, Alkaline Phosphatase 72, Total Protein 6.7, Albumin 2.8 L, Globulin 3.9, Albumin/Globulin Ratio 0.7 L Current Medications Acetaminophen (Tylenol) 650 mg PO Q6H PRN PRN PRN Reason: Pain Score 1-10/Temp > 100.7 F Albuterol Sulfate (Ventolin Aerosols) 2.5 mg INHALATION Q2H PRN PRN PRN Reason: Shortness of Breath/Wheezing Amlodipine Besylate (Norvasc) 10 mg PO DAILY [facility] Atorvastatin Calcium (Lipitor) 80 mg PO QHS [facility] Cholecalciferol (Vitamin D (25mcg)) 1,000 unit PO DAILY [facility] Dextrose (D50w Syringe) 0 gm IV X1 PRN; Protocol PRN Reason: Hypoglycemia Glucagon () 1 mg IM .X1 PRN PRN Reason: Hypoglycemia Sodium Chloride () 1,000 mls @ 125 mls/hr IV .Q8H [facility] Last Admin: 11/20/19 08:20 Dose: 125 mls/hr Documented by: Sodium Chloride () 250 mls @ 15 mls/hr IV .[id number] PRN PRN Reason: Saline Flush Sodium Chloride () 250 mls @ 15 mls/hr IV .[id number] PRN PRN Reason: Additional IVPB Infusion Ciprofloxacin (Cipro) 400 mg in 200 mls @ 200 mls/hr IV Q12 [facility] Metronidazole (Flagyl) 500 mg in 100 mls @ 100 mls/hr IV Q8H [facility] Potassium Chloride () 10 meq in 100 mls @ 100 mls/hr IV BOLUS Q1H [facility] Stop: 11/20/19 14:29 Insulin Human Lispro (Humalog Kwikpen (Bkc)) 0 unit SC ACHS [facility]; Protocol Losartan Potassium (Cozaar) 25 mg PO DAILY [facility] Melatonin (Melatonin) 3 mg PO QHS PRN PRN PRN Reason: INSOMNIA Metoprolol Tartrate (Lopressor (Beta Yadira)) 100 mg PO BID [facility] Morphine Sulfate () 2 mg IV Q3H PRN PRN PRN Reason: Pain Score 4-10/10 Ondansetron HCl (Zofran) 4 mg IV Q8H PRN PRN PRN Reason: NAUSEA/VOMITING Potassium [facility] ([facility]) [facility] Stop: 11/21/19 08:01 Prochlorperazine Edisylate (Compazine Iv) 5 mg IV Q4H PRN PRN PRN Reason: Breakthrough nausea/vomiting Senna/Docusate Sodium (Senokot-S, Marguerite-Colace) 2 tablet PO BID PRN PRN PRN Reason: Constipation Sodium Chloride () 10 - 40 ml IV UD PRN PRN Reason: SALINE FLUSH Tamsulosin HCl (Flomax) 0.4 mg PO DAILY [facility] Assessment/Plan All Active Problems (Last Reviewed 10/24/19 @ 15:13 by Sharona Rowe) Acute colitis (Acute) Urinary retention (Acute) Internal bleeding hemorrhoids (Acute) Rectal bleeding (Acute) Renal infarct (Acute) Aortic mural thrombus (Acute) 84-year-old female who actually appears to be resting rather comfortably. She does not appear to be in acute distress. She states that she has currently been on her apixaban. She has not however been on this for an extended period of time since her surgery. She does carry history of paroxysmal atrial fibrillation. Certainly the findings could correlate with ischemic colitis. Infectious colitis however cannot be excluded as her has had diarrhea as well. The patient's most recent colonoscopy was October 19, 2019. She certainly does not need an additional inspection. This is not related to her stapled hemorrhoidopexy. As with most ischemic colitis I anticipate that she will be able to be managed conservatively. She already has been ill for at least 5 days prior to presentation suggesting that this was not an acute major vessel embolic event. I certainly agree with obtaining stool for analysis to exclude infectious gastroenteritis. IV hydration as the patient is mildly dehydrated. She is anticoagulated and pending her progress likely should at least be pursued with pharmacologic DVT prophylaxis with chemoprophylaxis heparin or Lovenox. I will follow her remotely but this time I am not anticipating that the patient will require any type of surgical intervention. Appreciate the opportunity of assisting with her surgical care I will check a lactic acid level for baseline Gigi Hays M.D., F.A.C.S.
[2019-11-20] MEDS: Ciprofloxacin 400 MG/200 ML BAG 200 MG IV ×2 (14:22→22:25)
[2019-11-20 14:28] LABS: Lactic Acid 1.9 mmol/L (0.4-1.9)
[2019-11-20] MEDS: Ondansetron 4 MG/2 ML Vial IV (15:47)
[2019-11-20] MEDS: Potassium Chloride 10mEq/100mL 10 MEQ/100 ML IV.SOLN. 100 MEQ IV BOLUS ×2 (15:48→17:35)
[2019-11-20 17:36] LABS: Bedside Glucose 137 mg/dL (70-110)
[2019-11-20 20:54] LABS: Hematocrit 33.6 % (37-47); Hemoglobin 10.9 g/dL (12.0-15.0)
[2019-11-20] MEDS: Atorvastatin Calcium 80 MG Tablet PO (22:08)
[2019-11-20] MEDS: Metoprolol Tartrate 100 MG Tablet PO (22:08)
[2019-11-20] MEDS: Heparin Injection (Vial) 5,000 UNIT/ML VIAL 5000 UNIT SC (22:49)
[2019-11-20] MEDS: proCHLORPERazine 10 MG/2 ML Vial 5 MG IV (23:42)
[2019-11-21] MEDS: 0.9% Normal Saline 1,000 ML 125 ML IV ×2 (01:39→09:32)
--- NOTE | 2019-11-21 02:25 | PCM.PN.BLA ---
Progress Note Notified that C. difficile test is positive. Patient is on ciprofloxacin and Flagyl IV for colitis. Will order vancomycin p.o STROKE Vital Signs/Narrative: Vital Signs Pulse Resp Pulse Ox 11/20/19 22:30 97 18 93
[2019-11-21 03:10] VITALS: BP 116/50; PULSE 73; RESP 16; TEMP 37.1; O2SAT 93
[2019-11-21 03:21] LABS: Bedside Glucose 104 mg/dL (70-110)
[2019-11-21 06:11] LABS: Absolute Lymphocyte Count 2.44 X10^3/uL (0.83-4.51); Absolute Neutrophil Count 11.6 X10^3/uL (2.0-7.7); Basophil# 0.09 X10^3/uL; Basophil% 0.5 % (0-1); Eosinophil# 0.23 X10^3/uL; Eosinophils% 1.4 % (0-5); Hematocrit 35.7 % (37-47); Hemoglobin 10.6 g/dL (12.0-15.0); Lymphocyte # 2.44 X10^3/ul (4.0); Lymphocyte % 14.8 % (19-41); Mean Corp Hgb Conc 29.7 g/dL (32-36); Mean Corpuscular Hgb 30.6 pg (27.0-32.0); Mean Corpuscular Volume 103.2 fL (81-99); Mean Platelet Vol. 10.3 fl (6.2-12.0); Monocyte# 1.82 X10^3/uL; Monocyte% 11.1 % (0-10); NRBC Flagged by Analyzer 0 % (0-5); Neutrophil # 11.59 X10^3/uL (2.7-7.7); Neutrophil % 70.4 % (47-70); POSITIVE DIFFERENTIAL YES; Platelet Count 158 K/mm3 (150-450); RBC Distribution Width CV 13.6 % (11.6-14.6); RBC Distribution Width SD 51.2 fl (35.1-43.9); Red Blood Count 3.46 M/mm3 (4.2-5.4); White Blood Count 16.5 K/mm3 (4.4-11.0)
[2019-11-21] MEDS: metroNIDAZOLE 500 MG/100 ML BAG 100 MG IV (06:14)
--- NOTE | 2019-11-21 06:15 | PCM.PN.SRG ---
Patient Problems: Active and Suspected Problems (Last Reviewed 10/24/19 @ 15:13 by Sharona Rowe) Acute colitis (Acute) Subjective: Patient states that she is feeling improved this morning. She appears bright and cheerful - Physical Exam Vitals/I&O's: Vital Signs Temp Pulse Resp BP Pulse Ox 98.8 F 73 16 116/50 L 93 11/21/19 03:10 11/21/19 03:10 11/21/19 03:10 11/21/19 03:10 11/21/19 03:10 Oxygen Delivery Method Room Air Weight: 151 lb 0.266 oz Body Mass Index (BMI) 27.6 Intake and Output for Last 24 Hours 11/19/19 11/20/19 11/21/19 23:59 23:59 23:59 Intake Total 2419.25 / 2519.25 1077.08 / 1077.08 Output Total 278 / 278 Balance 2141.25 / 2241.25 1077.08 / 1077.08 Microbiology Past 72 Hours 11/20/19 18:14 Stool C. difficile GDH Antigen & Toxins - Preliminary Toxigenic C. difficile 11/20/19 18:14 Stool C. difficile DNA Amplification - Final 11/20/19 18:15 Interface Orders Stool Lactoferrin - Final 11/20/19 08:05 Stool Stool Occult Blood (PATIENCE) - Final Occult Blood Positive Laboratory Results 11/20/19 08:05: WBC 15.3 H, RBC 4.06 L, Hgb 12.4, Hct 38.9, MCV 95.8, MCH 30.5, MCHC 31.9 L, RDW Std Deviation 46.3 H, RDW Coeff of [place] 13.2, Plt Count 208, MPV 10.2, Immature Gran % (Auto) 1.500 H, Neut % (Auto) 63.3, Lymph % (Auto) 19.4, [place] % (Auto) 14.2 H, Eos % (Auto) 1.0, Baso % (Auto) 0.6, Absolute Neuts (auto) 9.7 H, Absolute Lymphs (auto) 2.97, Nucleated RBC % 0, Differential Comment , Diff Path Review September11/20/19 08:05: PT 21.2 H, INR 1.9, APTT 37.6 H 11/20/19 08:05: Sodium 139, Potassium 3.4 L, Chloride 106, Carbon Dioxide 24.0, Anion Gap 9, BUN 22 H, Creatinine 1.09 H, Estim Creat Clear Calc 30.39, Est GFR (MDRD) Af Amer 62, Est GFR (MDRD) Non-Af 51 L, BUN/Creatinine Ratio 20.2 H, Glucose 112 H, Calcium 8.4 L, Total Bilirubin 0.40, AST 14 L, ALT 18, Alkaline Phosphatase 72, Total Protein 6.7, Albumin 2.8 L, Globulin 3.9, Albumin/Globulin Ratio 0.7 L 11/20/19 08:05: Magnesium 2.0 11/20/19 13:55: Lactic Acid 1.9 11/20/19 16:09: POC Glucose 137 H 11/20/19 20:45: Hgb 10.9 L, Hct 33.6 L 11/20/19 22:04: POC Glucose 104 11/21/19 05:50: WBC Pending, RBC Pending, Hgb Pending, Hct Pending, MCV Pending, MCH Pending, MCHC Pending, RDW Std Deviation Pending, RDW Coeff of [place] Pending, Plt Count Pending, Neut % (Auto) Pending, Absolute Neuts (auto) Pending 11/21/19 05:50: Sodium Pending, Potassium Pending, Chloride Pending, Carbon Dioxide Pending, Anion Gap Pending, BUN Pending, Creatinine Pending, Est GFR (MDRD) Af Amer Pending, Est GFR (MDRD) Non-Af Pending, BUN/Creatinine Ratio Pending, Glucose Pending, Calcium Pending, TSH Pending Current Medications Acetaminophen (Tylenol) 650 mg PO Q6H PRN PRN PRN Reason: Pain Score 1-10/Temp > 100.7 F Albuterol Sulfate (Ventolin Aerosols) 2.5 mg INHALATION Q2H PRN PRN PRN Reason: Shortness of Breath/Wheezing Amlodipine Besylate (Norvasc) 10 mg PO DAILY [facility] Atorvastatin Calcium (Lipitor) 80 mg PO QHS [facility] Last Admin: 11/20/19 22:08 Dose: 80 mg Documented by: Calamine/Phenol (Calmoseptine Ointment) 1 applic TOPICAL BID [facility]; Protocol Cholecalciferol (Vitamin D (25mcg)) 1,000 unit PO DAILY [facility] Dextrose (D50w Syringe) 0 gm IV X1 PRN; Protocol PRN Reason: Hypoglycemia Glucagon () 1 mg IM .X1 PRN PRN Reason: Hypoglycemia Heparin Sodium (Porcine) (Heparin Na) 5,000 unit SC Q12 [facility] Last Admin: 11/20/19 22:49 Dose: 5,000 unit Documented by: Sodium Chloride () 1,000 mls @ 125 mls/hr IV .Q8H [facility] Last Admin: 11/21/19 01:39 Dose: 125 mls/hr Documented by: Sodium Chloride () 250 mls @ 15 mls/hr IV .[id number] PRN PRN Reason: Saline Flush Last Infusion: 11/20/19 23:45 Dose: 0 mls/hr Documented by: Sodium Chloride () 250 mls @ 15 mls/hr IV .[id number] PRN PRN Reason: Additional IVPB Infusion Ciprofloxacin (Cipro) 400 mg in 200 mls @ 200 mls/hr IV Q12 [facility] Last Infusion: 11/20/19 23:25 Dose: Infused Documented by: Metronidazole (Flagyl) 500 mg in 100 mls @ 100 mls/hr IV Q8 [facility] Last Admin: 11/21/19 06:14 Dose: 100 mls/hr Documented by: Insulin Human Lispro (Humalog Kwikpen (Bkc)) 0 unit SC ACHS [facility]; Protocol Last Admin: 11/20/19 22:04 Dose: Not Given Documented by: Losartan Potassium (Cozaar) 25 mg PO DAILY [facility] Melatonin (Melatonin) 3 mg PO QHS PRN PRN PRN Reason: INSOMNIA Metoprolol Tartrate (Lopressor (Beta Yadira)) 100 mg PO BID [facility] Last Admin: 11/20/19 22:08 Dose: 100 mg Documented by: Morphine Sulfate () 2 mg IV Q3H PRN PRN PRN Reason: Pain Score 4-10/10 Ondansetron HCl (Zofran) 4 mg IV Q8H PRN PRN PRN Reason: NAUSEA/VOMITING Last Admin: 11/20/19 15:47 Dose: 4 mg Documented by: Potassium Chloride (K-Dur) 40 meq PO DAILYCM [facility] Stop: 11/21/19 08:01 Last Admin: 11/20/19 14:28 Dose: 40 meq Documented by: Prochlorperazine Edisylate (Compazine Iv) 5 mg IV Q4H PRN PRN PRN Reason: Breakthrough nausea/vomiting Last Admin: 11/20/19 23:42 Dose: 5 mg Documented by: Senna/Docusate Sodium (Senokot-S, Marguerite-Colace) 2 tablet PO BID PRN PRN PRN Reason: Constipation Sodium Chloride () 10 - 40 ml IV UD PRN PRN Reason: SALINE FLUSH Tamsulosin HCl (Flomax) 0.4 mg PO DAILY@1730 [facility] Last Admin: 11/20/19 17:02 Dose: Not Given Documented by: Vancomycin HCl () 125 mg PO Q6 [facility] Last Admin: 11/21/19 06:14 Dose: 125 mg Documented by: Medical Necessity - Tobacco Use Smoking Status: Never smoker Assessment/Plan All Active Problems (Last Reviewed 10/24/19 @ 15:13 by Sharona Rowe) Acute colitis (Acute) Internal bleeding hemorrhoids (Acute) Rectal bleeding (Acute) Renal infarct (Acute) Findings are consistent with acute C. difficile colitis. She appears to be improving on medical treatment. She is currently on triple antibiotic therapy ciprofloxacin and metronidazole and vancomycin. I suspect that this can be trimmed. She did make comment that her was having intermittent diarrhea. I would recommend consideration for testing him for C. difficile as well. At this time she will not require surgical intervention. She should improve on medical therapy. I will sign off please reconsult if indicated. Gigi Hays M.D., F.A.C.S.
[2019-11-21 06:59] LABS: Anion Gap 9 (5-15); BUN 15 mg/dL (7-18); BUN/Creat Ratio 16.1 RATIO (10-20); Calcium,Total 7.2 mg/dL (8.5-10.1); Chloride 110 mmol/L (98-107); Creatinine, Serum 0.93 mg/dL (0.55-1.02); EST Glomerular Filtration Rate 61 mL/min (>60); Est Glom Filt Rate - Afr Amer 74 mL/min (>60); Estimated Creatinine Clearance 35.61 ml/min; Glucose 97 mg/dL (74-106); Sodium Level 136 mmol/L (136-145); Thyroid Stim Hormone (TSH) 1.82 uIU/mL (0.358-3.74)
[2019-11-21 07:05] LABS: Bedside Glucose 120 mg/dL (70-110)
[2019-11-21 07:06] VITALS: O2SAT 93
[2019-11-21 07:44] LABS: Differential Indicated SCAN CRITERIA MET
[2019-11-21 08:34] LABS: Differential Comment SCANNED
[2019-11-21 09:07] VITALS: BP 114/49; PULSE 81; RESP 16; TEMP 36.8; O2SAT 93
[2019-11-21] MEDS: Menthol/Lanolin/Calamine/Znox 113 GM Tube 1 APPLIC TOPICAL ×2 (09:19→21:02)
[2019-11-21] MEDS: Heparin Injection (Vial) 5,000 UNIT/ML VIAL 5000 UNIT SC (09:27)
[2019-11-21] MEDS: Losartan Potassium 25 MG Tablet PO (09:27)
[2019-11-21 09:28] VITALS: PULSE 81
[2019-11-21] MEDS: amLODIPine 10 MG Tablet PO (09:28)
[2019-11-21] MEDS: Metoprolol Tartrate 100 MG Tablet PO ×2 (09:28→21:00)
--- NOTE | 2019-11-21 10:34 | CASEMGMT ---
RN CM ASSESSMENT Pt in isolation precautions for C-diff. Call placed to pt's room and RN CM assessment completed via phone conversation. Pt alert/oriented and answers all questions appropriately. Care providers, pharmacy, and demographics verified at this time. PCP: Dr Quarles Specialists: Dr Lis PARMAR Preferred Pharmacy: [facility] Retail Insurance: [employer] Prescription Benefit: Yes Living Will/HPOA: Has both LW and Healthcare POA, who is her , Franki Sweet. LNOK: , Franki. 2 daughters: Tasha Peck and Tammy Living Arrangements: Lives w/her in one-story home w/ramp entrance. Pt is independent w/ADL's and IADL's. Pt states she takes care of her . Her daughter is staying in their home to care for him while pt is in the hospital. Daughter also helps w/cleaning/home tasks. Transportation: Pt states drives self and states no transportation concerns at this time. One of her daughters will take her home @ discharge. DME: Denies using any DME and denies needs. HHC/SNF: No history of either and no needs identified. Pt wishes to return home and states has no concerns with going home at time of discharge. CM to follow for any discharge planning/needs. Pt voices no concerns/needs at this time. Advised pt to ask for CM if any questions/concerns/needs arise. Voices understanding. PLAN: Home Bushra BARNEY RN CM
[2019-11-21 11:46] LABS: Bedside Glucose 120 mg/dL (70-110)
--- NOTE | 2019-11-21 13:01 | PN_ITS ---
Patient Problems: Active and Suspected Problems (Last Reviewed 10/24/19 @ 15:13 by Sharona Rowe) Acute colitis (Acute) Reason for Visit: Left-sided C. difficile colitis Objective: Patient had no recent antibiotic exposure, initially antibiotic before hemorrhoid surgery and then about 1 week of Bactrim for UTI completed about 1 week ago. Her also has liquid diarrhea along with mild blood, similar symptoms. was advised to go to ER to get checked for C. difficile. Stool for C. difficile came positive. On p.o. vancomycin. Cipro and Flagyl discontinued. Vitals/I&O's: Vital Signs Temp Pulse Resp BP Pulse Ox 98.3 F 81 16 114/49 L 93 11/21/19 09:07 11/21/19 09:28 11/21/19 09:07 11/21/19 09:07 11/21/19 09:07 Oxygen Delivery Method Room Air Weight: 156 lb 1.396 oz Body Mass Index (BMI) 27.6 Intake and Output for Last 24 Hours 11/19/19 11/20/19 11/21/19 23:59 23:59 23:59 Intake Total 2419.25 / 2519.25 2112.50 / 2112.50 Output Total 278 / 278 Balance 2141.25 / 2241.25 2112.50 / 2112.50 General: Alert, Oriented x3, Cooperative HEENT: Atraumatic, PERRLA, EOMI, Normocephalic Neck: Supple, No JVD, Negative Carotid Bruits Lungs: Clear to auscultation, No rhonchi, No wheeze, No rales, Diminished Cardiovascular: Regular rate, Regular Rhythm, Normal S1, Normal S2, No murmurs Abdomen: Bowel Sounds Present, Soft, Non Tender, Non-Distended Extremities: No edema, Capillary Refill Less than 3 Seconds Skin: No rashes, No breakdown Musculoskeletal: No Tenderness to Palpation of Joints or Extremities Neurological: Cranial nerves II-XII grossly intact, Deep Tendon Reflexes 2+/4 and Symmetrical, Neuro grossly intact Psych/Mental Status: Normal Affect, Appropriate Microbiology Past 72 Hours 11/20/19 18:15 Interface Orders Enteric Bacteriology - Final 11/20/19 18:14 Stool C. difficile GDH Antigen & Toxins - Final Toxigenic C. difficile 11/20/19 18:14 Stool C. difficile DNA Amplification - Final 11/20/19 18:15 Interface Orders Stool Lactoferrin - Final 11/20/19 08:05 Stool Stool Occult Blood (PATIENCE) - Final Occult Blood Positive Laboratory Results 11/20/19 13:55: Lactic Acid 1.9 11/20/19 16:09: POC Glucose 137 H 11/20/19 20:45: Hgb 10.9 L, Hct 33.6 L 11/20/19 22:04: POC Glucose 104 11/21/19 05:50: WBC 16.5 H, RBC 3.46 L, Hgb 10.6 L, Hct 35.7 L, MCV 103.2 H D, MCH 30.6, MCHC 29.7 L D, RDW Std Deviation 51.2 H, RDW Coeff of [place] 13.6, Plt Count 158, MPV 10.3, Immature Gran % (Auto) 1.800 H, Neut % (Auto) 70.4 H, Lymph % (Auto) 14.8 L, [place] % (Auto) 11.1 H, Eos % (Auto) 1.4, Baso % (Auto) 0.5, Absolute Neuts (auto) 11.6 H, Absolute Lymphs (auto) 2.44, Nucleated RBC % 0, Differential Comment SCANNED, Diff Path Review September11/21/19 05:50: Sodium 136, Potassium 4.0, Chloride 110 H, Carbon Dioxide 17.0 L , Anion Gap 9, BUN 15, Creatinine 0.93, Estim Creat Clear Calc 35.61, Est GFR (MDRD) Af Amer 74, Est GFR (MDRD) Non-Af 61, BUN/Creatinine Ratio 16.1, Glucose 97, Calcium 7.2 L, TSH 1.82 11/21/19 06:58: POC Glucose 120 H 11/21/19 11:37: POC Glucose 120 H Current Medications Acetaminophen (Tylenol) 650 mg PO Q6H PRN PRN PRN Reason: Pain Score 1-10/Temp > 100.7 F Albuterol Sulfate (Ventolin Aerosols) 2.5 mg INHALATION Q2H PRN PRN PRN Reason: Shortness of Breath/Wheezing Amlodipine Besylate (Norvasc) 10 mg PO DAILY [facility] Last Admin: 11/21/19 09:28 Dose: 10 mg Documented by: Apixaban (Eliquis) 5 mg PO BID [facility] Atorvastatin Calcium (Lipitor) 80 mg PO QHS [facility] Last Admin: 11/20/19 22:08 Dose: 80 mg Documented by: Calamine/Phenol (Calmoseptine Ointment) 1 applic TOPICAL BID [facility]; Protocol Last Admin: 11/21/19 09:19 Dose: 1 applicatio Documented by: Cholecalciferol (Vitamin D (25mcg)) 1,000 unit PO DAILY [facility] Last Admin: 11/21/19 09:28 Dose: 1,000 unit Documented by: Dextrose (D50w Syringe) 0 gm IV X1 PRN; Protocol PRN Reason: Hypoglycemia Glucagon () 1 mg IM .X1 PRN PRN Reason: Hypoglycemia Sodium Chloride () 250 mls @ 15 mls/hr IV .[id number] PRN PRN Reason: Saline Flush Last Infusion: 11/20/19 23:45 Dose: 0 mls/hr Documented by: Sodium Chloride () 250 mls @ 15 mls/hr IV .[id number] PRN PRN Reason: Additional IVPB Infusion Insulin Human Lispro (Humalog Kwikpen (Bkc)) 0 unit SC ACHS [facility]; Protocol Last Admin: 11/21/19 11:37 Dose: Not Given Documented by: Losartan Potassium (Cozaar) 25 mg PO DAILY [facility] Last Admin: 11/21/19 09:27 Dose: 25 mg Documented by: Melatonin (Melatonin) 3 mg PO QHS PRN PRN PRN Reason: INSOMNIA Metoprolol Tartrate (Lopressor (Beta Yadira)) 100 mg PO BID [facility] Last Admin: 11/21/19 09:28 Dose: 100 mg Documented by: Morphine Sulfate () 2 mg IV Q3H PRN PRN PRN Reason: Pain Score 4-10/10 Non-Formulary Medication (Cyanocobalamin (Vitamin B-12) [B-12]) 1,000 mcg PO DAILY [facility] Ondansetron HCl (Zofran) 4 mg IV Q8H PRN PRN PRN Reason: NAUSEA/VOMITING Last Admin: 11/20/19 15:47 Dose: 4 mg Documented by: Prochlorperazine Edisylate (Compazine Iv) 5 mg IV Q4H PRN PRN PRN Reason: Breakthrough nausea/vomiting Last Admin: 11/20/19 23:42 Dose: 5 mg Documented by: Senna/Docusate Sodium (Senokot-S, Marguerite-Colace) 2 tablet PO BID PRN PRN PRN Reason: Constipation Sodium Chloride () 10 - 40 ml IV UD PRN PRN Reason: SALINE FLUSH Tamsulosin HCl (Flomax) 0.4 mg PO DAILY@1730 [facility] Last Admin: 11/20/19 17:02 Dose: Not Given Documented by: Vancomycin HCl () 125 mg PO Q6 [facility] Last Admin: 11/21/19 11:35 Dose: 125 mg Documented by: STROKE Vital Signs/Narrative: Vital Signs Temp Pulse Resp BP Pulse Ox 11/21/19 09:28 81 11/21/19 09:07 98.3 F 81 16 114/49 L 93 Medical Necessity - Tobacco Use Smoking Status: Never smoker Assessment/Plan All Active Problems (Last Reviewed 10/24/19 @ 15:13 by Sharona Rowe) Acute colitis (Acute) Internal bleeding hemorrhoids (Acute) Rectal bleeding (Acute) Renal infarct (Acute) The patient is a 84 year old F with multiple comorbidities including aortic mural thrombus, recent right renal infarct and internal bleeding brought in status post hemorrhoidopexy in October [address] Gigi Hays was admitted with mild mucus mixed rectal bleeding for about 5 days and left-sided abdominal cramps consistent with lower GI bleed probably secondary to infectious colitis or ischemic colitis. CT abdomen with oral and IV contrast which showed diffuse circumferential wall thickening of left hemicolon from splenic flexure to the rectum. There is also suggestion of possible ischemic colitis. Diffuse atherosclerotic calcification of abdominal aorta and its major visceral branches. Recent focal infarction in lateral aspect of right kidney. 1. Acute left-sided C. difficile colitis: Patient is being admitted on Medr floor. Patient was seen by surgeon Dr. Gigi Hays. Consult reviewed and appreciated. Continue IV fluid normal saline 125 mils per hour with IV Cipro and Flagyl. 11/21 2019: Per rectal bleeding is minor and is improving. Stool for occult blood is positive. Stool for C. difficile antigen and and toxin by EIA and DNA by PCR method detected. Stool for leukocytes positive but enteric bacteriology panel negative. enteric bacteriology panel ordered. Dr. Gigi Hays consult and follow-up reviewed and appreciated. Surgery signed off. Patient is taking oral therefore IV fluid discontinued. On vancomycin 125 mg p.o. every 6 hourly. Cipro and Flagyl discontinued. Contact isolation was educated to patient and daughter on phone. 2. Acute anemia blood loss secondary to lower GI bleed: Mild decrease in H&H from 12.4-10.5, with mild contribution from hemodilution from IV fluid. Does not require transfusion. Hemodynamically, patient is improving. Cardiovascular conditions: Coronary artery disease status post stents with STEMI in 2016 for which she was transferred to [facility], paroxysmal A. 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 During previous admission in September 2019, CT abdomen pelvis showed 3.5 x 2.3 cm of hypodensity in midportion of right kidney involving both cortex and medulla. At that time she was initially started on Lovenox and was transitioned to Eliquis. Recent Echocardiogram in September 2019 demonstrated an EF of 65%, stage II diastolic dysfunction, mild aortic stenosis, mild tricuspid valve insufficiency. 3. CAD with history of stents and history of paroxysmal A. fib on continue statin, metoprolol. Twelve-lead EKG shows normal sinus rhythm at 81 bpm. 4. Hypertension-stable, continue amlodipine, losartan, metoprolol. 5. Type 2 diabetes mellitus- diet controlled. Accu-Chek before meals and at bedtime and cover with Hem-o-jace sliding scale 6. Hyperlipidemia-continue statin. DVT prophylaxis: Patient was intermittent heparin subcu but is started on Eliquis. Discontinue if platelet count drops less than 50,000 or hemoglobin less than 8 g% Total time of the visit including total time spent in counseling or coordination of care, (more than 50% of the total time, spent in obtaining medical information from nurses and other ancillary care providers), discussion with advanced manufacturing consultant, review with patient's family on phone, review of labs and imaging is 30 minutes Living will/advanced directive/end of life care: Patient does have living will or advanced directive. After discussion of procedures involved with full code, DNR CC arrest and DNR CC, the patient opted for DNR-CC Arrest with no intubation Patient does not want artificial life support including intubation, tube feed, ventilator and/chest compression, central venous catheter, vasopressor and DC shock if needed DNR CC arrest. Total time spent in [id number] encounter in discussion of advanced directive 16 minutes. Inpatient E&M: 34719 Subs Hosp L3
[2019-11-21 14:01] LABS: Magnesium 1.9 mg/dL (1.6-2.6)
[2019-11-21 16:01] VITALS: BP 107/50; PULSE 79; RESP 16; TEMP 37.1; O2SAT 96
[2019-11-21 16:10] LABS: Bedside Glucose 120 mg/dL (70-110)
[2019-11-21] MEDS: Tamsulosin HCl 0.4 MG Capsule PO (17:34)
[2019-11-21 21:00] VITALS: BP 116/58; BP 126/64; PULSE 82; RESP 18; TEMP 36.9; O2SAT 99
[2019-11-21] MEDS: Atorvastatin Calcium 80 MG Tablet PO (21:00)
[2019-11-21] MEDS: APIXABAN 5 MG TABLET PO (21:01)
[2019-11-21 21:10] LABS: Bedside Glucose 115 mg/dL (70-110)
[2019-11-22 02:38] VITALS: BP 100/46; PULSE 80; RESP 18; TEMP 36.9; O2SAT 95
[2019-11-22 06:31] LABS: Bedside Glucose 88 mg/dL (70-110)
[2019-11-22 07:01] LABS: Absolute Lymphocyte Count 3.37 X10^3/uL (0.83-4.51); Basophil# 0.04 X10^3/uL; Basophil% 0.3 % (0-1); Eosinophil# 0.37 X10^3/uL; Eosinophils% 2.7 % (0-5); Hematocrit 33.1 % (37-47); Hemoglobin 10.3 g/dL (12.0-15.0); Lymphocyte # 3.37 X10^3/ul (4.0); Mean Corp Hgb Conc 31.1 g/dL (32-36); Mean Corpuscular Hgb 30.8 pg (27.0-32.0); Mean Corpuscular Volume 99.1 fL (81-99); Mean Platelet Vol. 10.8 fl (6.2-12.0); Monocyte# 1.48 X10^3/uL; NRBC Flagged by Analyzer 0 % (0-5); Neutrophil # 7.99 X10^3/uL (2.7-7.7); Neutrophil % 59.4 % (47-70); Platelet Count 188 K/mm3 (150-450); RBC Distribution Width CV 13.7 % (11.6-14.6); RBC Distribution Width SD 49.5 fl (35.1-43.9); Red Blood Count 3.34 M/mm3 (4.2-5.4); White Blood Count 13.5 K/mm3 (4.4-11.0)
[2019-11-22 07:45] VITALS: O2SAT 95
--- NOTE | 2019-11-22 09:35 | PCM.DC ---
- Discharge Diagnoses Current Active Problems: Current Active and Chronic Problems (Last Reviewed 10/24/19 @ 15:13 by Sharona Rowe) Acute colitis (Acute) You will use the following diet at home:: Calorie/Carbohydrate Controlled (specify 1200, 1400, etc) - 1800 ADA diet, Cardiac Your food should be the consistency of: Regular Discharge Activity: May Not Drive Weight Bearing Status: Weight bearing as tolerated Call your doctor if you observe: Fever of 101 or Higher, Coldness, Increased Pain, Numbness or Tingling, Change in Color, Inability to urinate, Inability to have a bowel movement - If GI BLEED, contact PCP or go to ED immediately, Shortness of breath, Dizziness, Fainting spells, Swelling in the ankles, Chest pain, Prolonged hiccoughing, Increased palpitations (irregular heartbeat) Allergies/Adverse Reactions: Allergies codeine Adverse Reaction (Verified 11/20/19 08:05) Nausea lisinopril Adverse Reaction (Verified 11/20/19 08:05) Cough Medications to take at Discharge Atorvastatin Calcium 80 mg PO QHS 11/14/18 Magnesium Gluconate 27 mg PO DAILY 11/14/18 Vit C/Vit E AC/Lut/Copper/Zinc [Preservision Lutein Softgel] 1 cap PO BID 11/14/18 metoprolol tartrate 100 mg tablet 100 mg PO BID tab 01/31/19 losartan 25 mg tablet 25 mg PO DAILY #30 tab 06/05/19 amlodipine 10 mg tablet 10 mg PO DAILY #90 tab 08/24/19 Cholecalciferol (VIT D3) [Vitamin D3] 1,000 unit PO DAILY 09/26/19 Cyanocobalamin (Vitamin B-12) [B-12] 1,000 mcg PO DAILY 09/26/19 Sulfasalazine 500 mg PO Q6H PRN PRN 09/26/19 apixaban 5 mg tablet 5 mg PO BID tab 10/11/19 Amlodipine [Norvasc] 10 mg PO DAILY tab 11/22/19 Aspirin [Low Dose Aspirin EC] 81 mg PO DAILY@0800 #1 tab 11/22/19 Vancomycin [Vancocin] 125 mg PO Q6H #56 cap 11/22/19 The following prescriptions were given: Vancomycin [Vancocin] 125 mg PO Q6H #56 cap Orders to be completed after discharge: CBC W/Diff, Automated Time Frame: 12/03/19, Facility: [facility], Location: Laboratory Primary Care Physician: Whitney Quarles MD [Primary Care Provider] - Please follow up with your Primary Care Physician in: in 1 week with CBC ON 11/26/2019 Test Results: Test results from this visit will be discussed in further detail at your follow-up appointment, if applicable. Please Follow Up With: Gigi Hays MD When: as Needed basis for GI Bleed or abdominal pain
[2019-11-22 09:40] VITALS: BP 110/47; PULSE 79; RESP 16; TEMP 36.6; O2SAT 96
[2019-11-22] MEDS: Menthol/Lanolin/Calamine/Znox 113 GM Tube 1 APPLIC TOPICAL (09:42)
[2019-11-22] MEDS: Losartan Potassium 25 MG Tablet PO (09:43)
[2019-11-22] MEDS: APIXABAN 5 MG TABLET PO (09:43)
[2019-11-22] MEDS: Cyanocobalamin 500 MCG Tablet 1000 MCG PO (09:44)
[2019-11-22] MEDS: amLODIPine 10 MG Tablet PO (09:44)
--- NOTE | 2019-11-22 09:45 | PCM.DC.SUM ---
Discharge Date and Diagnosis Date of Admission: 11/20/19 Date of Discharge: 11/22/19 - Primary Discharge Diagnosis Acute Problems: Active Problems (Last Reviewed 10/24/19 @ 15:13 by Sharona Rowe) Acute colitis (Acute) - Secondary Discharge Diagnosis Chronic Problems: Chronic Problems (Last Reviewed 10/24/19 @ 15:13 by Sharona Rowe) Urinary retention (Chronic) Hx of lower gastrointestinal bleeding (Chronic) Aortic mural thrombus (Chronic) Presence of stent in coronary artery (Chronic ~06/20/15) PTCA/SHABNAM x1 to RCA and PTCA/SHABNAM x2 to LCX 06/20/15 @ [facility] Essential hypertension (Chronic) Atherosclerotic heart disease of [place] coronary artery without angina pectoris (Chronic) Pure hypercholesterolemia (Chronic) Diabetes mellitus type II, controlled (Chronic) PAF (paroxysmal atrial fibrillation) (Chronic) Hospital Course and Treatment Operations: None Summary of Care Provided: ] The patient is a 84 year old F with multiple comorbidities including aortic mural thrombus, recent right renal infarct and internal bleeding brought in status post hemorrhoidopexy in October [address] Gigi Hays was admitted with mild mucus mixed rectal bleeding for about 5 days and left-sided abdominal cramps consistent with lower GI bleed probably secondary to infectious colitis or ischemic colitis. CT abdomen with oral and IV contrast which showed diffuse circumferential wall thickening of left hemicolon from splenic flexure to the rectum. There is also suggestion of possible ischemic colitis. Diffuse atherosclerotic calcification of abdominal aorta and its major visceral branches. Recent focal infarction in lateral aspect of right kidney. 1. Acute left-sided C. difficile colitis: Patient is being admitted on MedSur floor. Patient was seen by surgeon Dr. Gigi Hays Consult reviewed and appreciated. Continue IV fluid normal saline 125 mils per hour with IV Cipro and Flagyl. Stool for occult blood is positive. Stool for C. difficile antigen and and toxin by EIA and DNA by PCR method detected. Stool for leukocytes positive but enteric bacteriology panel negative. Stool for enteric bacteriology panel negative. Cipro and Flagyl were discontinued. Abdominal pain resolved. Patient is discharged on 2 weeks of Vanco 125 mg 4 times daily total 56 capsule, prescription called to the [facility] pharmacy, [address] 2. Acute anemia blood loss secondary to lower GI bleed: Mild decrease in H&H from 12.4-10.5, with mild contribution from hemodilution from IV fluid. Does not require transfusion. Hemodynamically, patient is improved and remained stable. Cardiovascular conditions: Coronary artery disease status post stents with STEMI in 2016 for which she was transferred to [facility], paroxysmal A. 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 Patient tolerated well without significant drop in H&H. Patient was advised to hold aspirin for 5 more days. During previous admission in September 2019, CT abdomen pelvis showed 3.5 x 2.3 cm of hypodensity in midportion of right kidney involving both cortex and medulla. At that time she was initially started on Lovenox and was transitioned to Eliquis. Recent Echocardiogram in September 2019 demonstrated an EF of 65%, stage II diastolic dysfunction, mild aortic stenosis, mild tricuspid valve insufficiency. 3. CAD with history of stents and history of paroxysmal A. fib on continue statin, metoprolol. Twelve-lead EKG shows normal sinus rhythm at 81 bpm. 4. Hypertension-stable, continue amlodipine, losartan, metoprolol. 5. Type 2 diabetes mellitus- diet controlled. Patient blood sugar is controlled 112, 97. 6. Hyperlipidemia-continue statin. DVT prophylaxis: Patient was intermittent heparin subcu but is started on Eliquis. Discontinue if platelet count drops less than 50,000 or hemoglobin less than 8 g% Discharge medication reconciliation done. Discharge follow-up instructions completed. Discharge process discussed with the patient and her daughter on the phone and all questions were answered to patient's satisfaction. Hold aspirin for 5 days. Repeat CBC on 11/26/2019 and follow-up with PCP. Total time spent, exact 35 minutes on discharge meds reconciliation, examination, coordination of care with nurses and ancillary staff, review of imaging and blood test and discussion with the patient on follow-up instructions Living will/advanced directive/end of life care: Patient does have living will or advanced directive. DNR CC arrest with no intubation Objective: Seen and examined. No fever, tachycardia, hypotension. Hemodynamically stable. Denies abdominal pain. On physical exam General: Alert, Oriented x3, Cooperative HEENT: Atraumatic, PERRLA, EOMI, Normocephalic Neck: Supple, No JVD, Negative Carotid Bruits Lungs: Clear to auscultation, No rhonchi, No wheeze, No rales, air entry bilateral equal Cardiovascular: Regular rate, Regular Rhythm, Normal S1, Normal S2, No murmurs Abdomen: Bowel Sounds Present, Soft, Non Tender, Non-Distended, no palpable mass Extremities: No edema, Capillary Refill Less than 3 Seconds Skin: No rashes, No breakdown Musculoskeletal: No Tenderness to Palpation of Joints or Extremities Neurological: Cranial nerves II-XII grossly intact, Deep Tendon Reflexes 2+/4 and Symmetrical, Neuro grossly intact Psych/Mental Status: Normal Affect, Appropriate - Physical Exam Vitals/I&O's: Vital Signs Temp Pulse Resp BP Pulse Ox 97.9 F 79 16 110/47 L 96 11/22/19 09:40 11/22/19 09:40 11/22/19 09:40 11/22/19 09:40 11/22/19 09:40 Oxygen Delivery Method Room Air Weight: 155 lb 13.869 oz Body Mass Index (BMI) 27.6 Intake and Output for Last 24 Hours 11/20/19 11/21/19 11/22/19 23:59 23:59 23:59 Intake Total 2419.25 / 2519.25 3104.17 / 3104.17 Output Total 278 / 278 Balance 2141.25 / 2241.25 3104.17 / 3104.17 Microbiology Past 72 Hours 11/20/19 18:15 Interface Orders Enteric Bacteriology - Final 11/20/19 18:14 Stool C. difficile [facility] Antigen & Toxins - Final Toxigenic C. difficile 11/20/19 18:14 Stool C. difficile DNA Amplification - Final 11/20/19 18:15 Interface Orders Stool Lactoferrin - Final 11/20/19 08:05 Stool Stool Occult Blood (PATIENCE) - Final Occult Blood Positive Laboratory Results 11/21/19 11:37: POC Glucose 120 H 11/21/19 13:39: Magnesium 1.9 11/21/19 15:56: POC Glucose 120 H 11/21/19 20:59: POC Glucose 115 H 11/22/19 06:22: POC Glucose 88 11/22/19 06:35: WBC 13.5 H, RBC 3.34 L, Hgb 10.3 L, Hct 33.1 L, MCV 99.1 H, MCH 30.8, MCHC 31.1 L, RDW Std Deviation 49.5 H, RDW Coeff of Yoli 13.7, Plt Count 188, MPV 10.8, Immature Gran % (Auto) 1.600 H, Neut % (Auto) 59.4, Lymph % (Auto) 25.0, [place] % (Auto) 11.0 H, Eos % (Auto) 2.7, Baso % (Auto) 0.3, Absolute Neuts (auto) 8.0 H, Absolute Lymphs (auto) 3.37, Nucleated RBC % 0 Current Medications Acetaminophen (Tylenol) 650 mg PO Q6H PRN PRN PRN Reason: Pain Score 1-10/Temp > 100.7 F Albuterol Sulfate (Ventolin Aerosols) 2.5 mg INHALATION Q2H PRN PRN PRN Reason: Shortness of Breath/Wheezing Amlodipine Besylate (Norvasc) 10 mg PO DAILY [facility] Last Admin: 11/21/19 09:28 Dose: 10 mg Documented by: Apixaban (Eliquis) 5 mg PO BID [facility] Last Admin: 11/21/19 21:01 Dose: 5 mg Documented by: Atorvastatin Calcium (Lipitor) 80 mg PO QHS [facility] Last Admin: 11/21/19 21:00 Dose: 80 mg Documented by: Calamine/Phenol (Calmoseptine Ointment) 1 applic TOPICAL BID [facility]; Protocol Last Admin: 11/21/19 21:02 Dose: 1 applicatio Documented by: Cholecalciferol (Vitamin D (25mcg)) 1,000 unit PO DAILY [facility] Last Admin: 11/21/19 09:28 Dose: 1,000 unit Documented by: Cyanocobalamin (Vitamin B12) 1,000 mcg PO DAILY [facility] Dextrose (D50w Syringe) 0 gm IV X1 PRN; Protocol PRN Reason: Hypoglycemia Glucagon () 1 mg IM .X1 PRN PRN Reason: Hypoglycemia Sodium Chloride () 250 mls @ 15 mls/hr IV .[id number] PRN PRN Reason: Saline Flush Last Infusion: 11/20/19 23:45 Dose: 0 mls/hr Documented by: Sodium Chloride () 250 mls @ 15 mls/hr IV .[id number] PRN PRN Reason: Additional IVPB Infusion Insulin Human Lispro (Humalog Kwikpen (Bkc)) 0 unit SC ACHS [facility]; Protocol Last Admin: 11/22/19 06:22 Dose: Not Given Documented by: Losartan Potassium (Cozaar) 25 mg PO DAILY [facility] Last Admin: 11/21/19 09:27 Dose: 25 mg Documented by: Melatonin (Melatonin) 3 mg PO QHS PRN PRN PRN Reason: INSOMNIA Metoprolol Tartrate (Lopressor (Beta Yadira)) 100 mg PO BID [facility] Last Admin: 11/21/19 21:00 Dose: 100 mg Documented by: Morphine Sulfate () 2 mg IV Q3H PRN PRN PRN Reason: Pain Score 4-10/10 Ondansetron HCl (Zofran) 4 mg IV Q8H PRN PRN PRN Reason: NAUSEA/VOMITING Last Admin: 11/20/19 15:47 Dose: 4 mg Documented by: Prochlorperazine Edisylate (Compazine Iv) 5 mg IV Q4H PRN PRN PRN Reason: Breakthrough nausea/vomiting Last Admin: 11/20/19 23:42 Dose: 5 mg Documented by: Senna/Docusate Sodium (Senokot-S, Marguerite-Colace) 2 tablet PO BID PRN PRN PRN Reason: Constipation Sodium Chloride () 10 - 40 ml IV UD PRN PRN Reason: SALINE FLUSH Tamsulosin HCl (Flomax) 0.4 mg PO DAILY@1730 [facility] Last Admin: 11/21/19 17:34 Dose: 0.4 mg Documented by: Vancomycin HCl () 125 mg PO Q6 [facility] Last Admin: 11/22/19 06:20 Dose: 125 mg Documented by: Discharge Activity: May Not Drive Weight Bearing Status: Weight bearing as tolerated Call your doctor if you observe: Fever of 101 or Higher, Coldness, Increased Pain, Numbness or Tingling, Change in Color, Inability to urinate, Inability to have a bowel movement - If GI BLEED, contact PCP or go to ED immediately, Shortness of breath, Dizziness, Fainting spells, Swelling in the ankles, Chest pain, Prolonged hiccoughing, Increased palpitations (irregular heartbeat) Home Medications: Medications to take at Discharge Atorvastatin Calcium 80 mg PO QHS 11/14/18 Magnesium Gluconate 27 mg PO DAILY 11/14/18 Vit C/Vit E AC/Lut/Copper/Zinc [Preservision Lutein Softgel] 1 cap PO BID 11/14/18 metoprolol tartrate 100 mg tablet 100 mg PO BID tab 01/31/19 losartan 25 mg tablet 25 mg PO DAILY #30 tab 06/05/19 amlodipine 10 mg tablet 10 mg PO DAILY #90 tab 08/24/19 Cholecalciferol (VIT D3) [Vitamin D3] 1,000 unit PO DAILY 09/26/19 Cyanocobalamin (Vitamin B-12) [B-12] 1,000 mcg PO DAILY 09/26/19 Sulfasalazine 500 mg PO Q6H PRN PRN 09/26/19 apixaban 5 mg tablet 5 mg PO BID tab 10/11/19 Amlodipine [Norvasc] 10 mg PO DAILY tab 11/22/19 Aspirin [Low Dose Aspirin EC] 81 mg PO DAILY@0800 #1 tab 11/22/19 Vancomycin [Vancocin] 125 mg PO Q6H #56 cap 11/22/19 Following Prescrptions Were Given to Patient: Vancomycin [Vancocin] 125 mg PO Q6H #56 cap Other Amb Orders: CBC W/Diff, Automated Time Frame: 12/03/19, Facility: [facility], Location: Laboratory Primary Care Physician: Whitney Quarles MD [Primary Care Provider] - Please follow up with your Primary Care Physician in: in 1 week with CBC ON 11/26/2019 Please Follow Up With: Gigi Hays MD When: as Needed basis for GI Bleed or abdominal pain Medical Necessity - Tobacco Use Smoking Status: Never smoker Meaningful Use Info Meaningful Use Diagnoses (Choose all that apply): None applicable Inpatient E&M: 63826 [facility]
[2019-11-22 09:48] VITALS: PULSE 79
[2019-11-22] MEDS: Metoprolol Tartrate 100 MG Tablet PO (09:48)
[2019-11-22 10:22] LABS: Pathologist Review Reviewed
[2019-11-22 12:30] LABS: Pathologist Review Reviewed
== END 2019-11-22 10:39 | disposition home or self-care (01) | DRG 372 ==
LOC: ED 08:32 → MS3 11:58
PROVIDERS: Surgery; Admitting Provider Internal Medicine; Emergency Provider Emergency Medicine; PCP Internal Medicine; Visit Provider Internal Medicine
DX: A04.72 Enterocolitis due to Clostridium difficile, not specified as recurrent (principal); D62 Acute posthemorrhagic anemia; I74.09 Other arterial embolism and thrombosis of abdominal aorta; R33.9 Retention of urine, unspecified; I10 Essential (primary) hypertension; I70.0 Atherosclerosis of aorta; I25.2 Old myocardial infarction; I25.10 Atherosclerotic heart disease of native coronary artery without angina pectoris; I48.0 Paroxysmal atrial fibrillation; E78.00 Pure hypercholesterolemia, unspecified; E78.5 Hyperlipidemia, unspecified; E11.9 Type 2 diabetes mellitus without complications; E86.0 Dehydration; Z66 Do not resuscitate; Z95.5 Presence of coronary angioplasty implant and graft; Z79.01 Long term (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; Z79.82 Long term (current) use of aspirin; Z79.899 Other long term (current) drug therapy
CPT/HCPCS: 36415; 74177; 80048; 80053; 82274; 82962; 83605; 83630; 83735; 84443; 85014; 85018; 85025; 85610; 85730; 87493; 87506; 93005; 99251; 99285; J7030; J7050; Q9967; A4216; G0463; J0744; J2405

== ENCOUNTER → 2019-12-21 09:07 | Outpatient (CLI) | payer MEDICARE, SELFPAY ==
[2019-12-13 10:08] VITALS: BMI 28.4
[2019-12-21 09:35] LABS: Absolute Lymphocyte Count 3.03 X10^3/uL (0.83-4.51); Absolute Neutrophil Count 2.6 X10^3/uL (2.0-7.7); Basophil# 0.06 X10^3/uL; Basophil% 0.9 % (0-1); Eosinophil# 0.36 X10^3/uL; Eosinophils% 5.4 % (0-5); Hematocrit 42.2 % (37-47); Hemoglobin 12.9 g/dL (12.0-15.0); Lymphocyte # 3.03 X10^3/ul (4.0); Lymphocyte % 45.2 % (19-41); Mean Corp Hgb Conc 30.6 g/dL (32-36); Mean Corpuscular Hgb 30.8 pg (27.0-32.0); Mean Corpuscular Volume 100.7 fL (81-99); Mean Platelet Vol. 11.2 fl (6.2-12.0); Monocyte# 0.59 X10^3/uL; Monocyte% 8.8 % (0-10); NRBC Flagged by Analyzer 0 % (0-5); Neutrophil # 2.64 X10^3/uL (2.7-7.7); Neutrophil % 39.4 % (47-70); Platelet Count 153 K/mm3 (150-450); RBC Distribution Width CV 14.4 % (11.6-14.6); RBC Distribution Width SD 53.5 fl (35.1-43.9); Red Blood Count 4.19 M/mm3 (4.2-5.4); White Blood Count 6.7 K/mm3 (4.4-11.0)
[2019-12-21 10:08] LABS: AST(SGOT) 26 U/L (15-37); Alanine Aminotransfer ALT/SGPT 28 U/L (13-56); Albumin, Serum 3.2 g/dL (3.2-5.0); Alkaline Phosphatase 88 U/L (45-117); Bilirubin, Direct 0.11 mg/dL (0.00-0.30); Cholesterol 167 mg/dL (200); Globulin 4.3 g/dL (2.2-4.2); High Density Lipoprotein 60 mg/dL; Protein, Total 7.5 g/dL (6.4-8.2); Triglycerides 135 mg/dL; Very Low Density Lipoprotein 27 mg/dL (5-40)
== END ==
PROVIDERS: Internal Medicine; PCP Internal Medicine; Referring Provider Internal Medicine Cardiovascular Disease; Visit Provider Internal Medicine Cardiovascular Disease
DX: K62.5 Hemorrhage of anus and rectum (principal); E78.00 Pure hypercholesterolemia, unspecified
CPT/HCPCS: 36415; 80061; 80076; 85025

== ENCOUNTER → 2020-11-19 08:23 | Outpatient (CLI) | payer MEDICARE, SELFPAY ==
[2020-08-07 11:04] VITALS: BMI 31.6
[2020-11-19 09:59] LABS: Anion Gap 4 (5-15); BUN 22 mg/dL (7-18); BUN/Creat Ratio 17.6 RATIO (10-20); Calcium,Total 8.9 mg/dL (8.5-10.1); Chloride 108 mmol/L (98-107); Creatinine, Serum 1.25 mg/dL (0.55-1.02); EST Glomerular Filtration Rate 43 mL/min (>60); Est Glom Filt Rate - Afr Amer 52 mL/min (>60); Glucose 166 mg/dL (74-106); Potassium 3.5 mmol/L (3.5-5.1); Sodium Level 140 mmol/L (136-145)
== END ==
PROVIDERS: PCP Internal Medicine; Referring Provider Internal Medicine Cardiovascular Disease; Visit Provider Internal Medicine Cardiovascular Disease
DX: R60.9 Edema, unspecified (principal); R06.02 Shortness of breath; E11.9 Type 2 diabetes mellitus without complications
CPT/HCPCS: 36415; 80048

== ENCOUNTER 2021-03-24 14:19 | Outpatient (CLI) | payer MEDICARE, SELFPAY ==
[2021-03-24] MEDS: 0.9% Saline Lock 10 ML Syringe IV (14:46)
[2021-03-24 14:48] VITALS: BP 156/89; PULSE 86; RESP 18; TEMP 36.6; O2SAT 99; BMI 32.2
[2021-03-24 15:30] VITALS: BP 153/72; PULSE 77; RESP 16; TEMP 36.6; O2SAT 97
[2021-03-24 16:23] VITALS: BP 155/85; PULSE 78; RESP 16; TEMP 36.7; O2SAT 98
== END 2021-03-24 16:30 | disposition home or self-care (01) ==
LOC: MS3OUT 14:19 → MS3 14:20
PROVIDERS: PCP Internal Medicine; Referring Provider Nurse Practitioner Adult Health; Visit Provider Nurse Practitioner Adult Health
DX: U07.1 COVID-19 (principal)
CPT/HCPCS: J7050; M0245; Q0245; A4216

== ENCOUNTER 2021-11-26 23:22 | Observation (INO) | payer MEDICARE, SELFPAY ==
[2021-11-26 23:23] VITALS: BP 170/92; PULSE 57; RESP 16; TEMP 36.7; O2SAT 97; BMI 31.6
[2021-11-26 23:24] VITALS: BP 170/92; PULSE 57; RESP 16; TEMP 36.7; O2SAT 97
--- NOTE | 2021-11-26 23:37 | RAD_ITS ---
EXAM: XR CHEST, 1 VIEW CLINICAL INDICATION: chest pain TECHNIQUE: Frontal view of the chest. This report was created using [employer] report generation technology. COMPARISON: 11/14/2018 FINDINGS: LUNGS AND PLEURAL SPACES: Unremarkable. No consolidation or edema. No pneumothorax. No effusion. HEART: Unremarkable. Cardiac silhouette not enlarged. MEDIASTINUM: Central airways and mediastinal contour are unremarkable. BONES/JOINTS: Unremarkable. SOFT TISSUES: Unremarkable. RAD/Chest 1 View (Portable) IMPRESSION: No radiographic evidence of acute cardiopulmonary disease. Electronically Signed: Lion Gaviria MD at 0:11 EDT ,
--- NOTE | 2021-11-26 23:37 | EKG12_ITS ---
Test Reason : CP Blood Pressure : / mmHG Vent. Rate : 073 BPM Atrial Rate : 079 BPM P-R Int : 000 ms QRS Dur : 074 ms QT Int : 382 ms P-R-T Axes : 000 002 004 degrees QTc Int : 420 ms Atrial fibrillation Septal infarct , age undetermined Abnormal ECG Confirmed by MARGOTH MCCLAIN, AMY ([id number]), scientific editor PATRICK CLAIRE ([id number]) on 11/28/2021 9:22:13 AM Referred By: ZENAIDA Confirmed By:AMY JUSTIN MD
[2021-11-27] VITALS (13 sets, daily range): BP systolic 120–191; BP diastolic 64–107; PULSE 60–90; RESP 12–20; TEMP 36.1–36.8; O2SAT 95–100; BMI 31.4
--- NOTE | 2021-11-27 00:36 | ED.VIS.CHEST ---
HPI History of Present Illness Chief Complaint: Chest Pain Informant: patient Onset/Context/Timing Onset: Today (For past 4 or 5 hours) Activity at onset: sudden and rest Timing: Intermittent and Lasts (Minutes) Quality: Positive for Tightness Location: Substernal Current Severity: Gone Maximum Severity: Moderate Narrative Narrative: Patient states for the past few days she has had abnormal dyspnea with exertion and fatiguing easily when she is just walking around doing things like shopping. She did not have chest discomfort start until tonight at rest, has been intermittent and not currently present. Has a history of coronary disease with some stents were placed remotely. Currently on Eliquis because of history of atrial fibrillation, she does not feel palpitations. She does not feel associated symptoms along with the chest discomfort. She currently feels okay except for just fatigue. [facility] Medical History (Updated 11/27/21 @ 01:[address] Dony Alicea MD) Atherosclerotic heart disease of [place] coronary artery without angina pectoris Diabetes mellitus type II, controlled Diverticulosis Essential hypertension History of basal cell carcinoma History of non-ST elevation myocardial infarction (NSTEMI) Internal bleeding hemorrhoids Lichen planus Macular degeneration PAF (paroxysmal atrial fibrillation) Presence of stent in coronary artery (~06/20/15) Pure hypercholesterolemia Rectal bleeding Urinary retention Home Medications atorvastatin 80 mg tablet 80 mg PO QHS 11/14/18 [History Last Taken 09/25/19] vit C 226 mg-vit E 90 mg-copper 0.8 mg-zinc oxide-lutein 5 mg capsule 1 cap PO BID eye health 11/14/18 [History Last Taken 09/25/19] cholecalciferol (vitamin D3) 25 mcg (1,000 unit) tablet 5,000 unit PO DAILY SUPPLEMENT 09/26/19 [History Last Taken 09/25/19] cyanocobalamin (vitamin B-12) 1,000 mcg tablet 1,000 mcg PO DAILY SUPPLEMENT 09/26/19 [History Last Taken 09/25/19] sulfasalazine 500 mg tablet 500 mg PO Q6H PRN PRN SKIN 09/26/19 [History Last Taken 09/25/19] lactobacillus combination no.9 4 billion cell capsule (Adult 50 Plus Probiotic) 4,000 mmu cells PO DAILY 01/30/20 [History Last Taken Unknown] furosemide 20 mg tablet 20 mg PO DAILY #90 tabs 03/12/21 [Rx Last Taken Unknown] potassium chloride 8 mEq capsule,extended release 16 meq PO DAILY #60 caps 04/15/21 [Rx Last Taken Unknown] amlodipine 5 mg tablet 5 mg PO DAILY #14 tabs 07/07/21 [Rx Last Taken Unknown] losartan 25 mg tablet 25 mg PO DAILY #14 tabs 07/07/21 [Rx Last Taken Unknown] metoprolol tartrate 100 mg tablet 100 mg PO BID heart #28 tabs 07/07/21 [Rx Last Taken Unknown] apixaban 5 mg tablet 5 mg PO BID #180 tabs 08/28/21 [Rx Last Taken Unknown] trazodone 50 mg tablet 50 mg PO QHS 11/27/21 [History Last Taken Unknown] Allergy/AdvReac Type Severity Reaction Status Date / Time codeine AdvReac Nausea Verified 11/26/21 23:24 lisinopril AdvReac Cough Verified 11/26/21 23:24 Family History Mother Hypertension Heart disease Diabetes Father Diabetes Hypertension Sister Hypertension Diabetes Sister Diabetes Hypertension Sister Diabetes Hypertension Sister Diabetes Hypertension Surgical History History of bilateral oophorectomy History of colonoscopy (~09/2019) History of hemorrhoidectomy (~10/2019) History of repair of rotator cuff History of total hysterectomy Presence of coronary angioplasty implant and graft (~06/20/15) Social History Smoking Status: Never smoker alcohol intake: never substance use type: does not use caffeine: No ROS ROS ED Constitutional Constitutional ED: Reports weakness; Denies chills or fever(s) Eyes Eyes: Denies change in vision or diplopia ENT ENT ED: Denies rhinorrhea or sore throat Cardiovascular Cardiovascular: Reports chest pain; Denies palpitations Respiratory/Chest Respiratory/Chest: Reports dyspnea on exertion; Denies cough Gastrointestinal Gastrointestinal: Denies abdominal pain, diarrhea, nausea or vomiting Genitourinary Genitourinary ED: Denies dysuria or hematuria Musculoskeletal Musculoskeletal: Reports back pain; Denies neck pain Integumentary Denies abscess or rash Neurologic Neurologic: Denies headache(s), paresthesias or weakness Psychiatric Psychiatric: Denies anxiety or suicidal thoughts EXAM Physical Exam Const Vital Signs: 11/26/21 23:23 11/26/21 23:24 11/27/21 00:10 Temperature 98.1 F 98.1 F Temperature Source Oral Oral Pulse Rate 57 L 57 L Respiratory Rate 16 16 Respiratory Effort Short of Breath Blood Pressure 170/92 H 170/92 H Blood Pressure Mean 118 118 Pulse Ox 97 97 Oxygen Delivery Method Room Air Room Air 11/27/21 00:21 11/27/21 00:31 11/27/21 01:36 Temperature Temperature Source Pulse Rate 73 66 Respiratory Rate 16 19 H Respiratory Effort Blood Pressure 159/93 H 159/88 H Blood Pressure Mean 115 111 Pulse Ox 98 100 Oxygen Delivery Method Room Air Room Air Room Air Positive well nourished and well developed General Appearance ED: well developed and NAD HEENT Reports moist mucous membranes normocephalic and atraumatic Eyes PERRL and EOMs intact bilaterally Neck full ROM, supple and no JVD Resp normal respiratory effort and clear to auscultation bilaterally Cardio regular rate, regular rhythm and no murmurs GI normal to inspection, nondistended, normoactive bowel sounds, non-tender and non-distended Auscultation: normoactive bowel sounds Palpation: soft Back/Spine no CVA tenderness General Back: other FROM Extremity normal to inspection General Extremety ED: Negative for edema, pulses abnormal or tenderness General Extremity: Negative for edema or pulses abnormal Neuro oriented x3, CN's II-XII intact bilaterally and no sensory deficits noted Sensorium / Orientation: awake and alert Motor Exam: strength 5/5 throughout Skin no rashes or lesions noted and no wounds Heart Score History: Highly Suspicious ECG: Normal Age: >/= 65 years Risk Factors: >/= 3 Risk Factors or History of CAD Troponin: </= Normal Limit Score: 6 MDM MDM MDM Narrative Medical decision making narrative: According to records patient's last stress test was 2.5 years ago and was negative. Her symptoms are concerning. She no longer smokes, and she is currently asymptomatic. Her troponin is negative. Her heart score is high, at 6. I recommend admitting her for further risk stratification and evaluation. Lab Data Attestation: I reviewed the patient's lab results. Labs: Laboratory Results - last 24 hr 11/27/21 11/27/21 00:30 00:30 WBC 10.2 RBC 4.24 Hgb 12.9 Hct 40.3 MCV 95.0 MCH 30.4 MCHC 32.0 RDW Std Deviation 49.1 H RDW Coeff of [place]oli 14.1 Plt Count 179 MPV 10.8 Immature Gran % (Auto) 0.300 Neut % (Auto) 52.5 Lymph % (Auto) 35.5 [place] % (Auto) 8.3 Eos % (Auto) 3.2 Baso % (Auto) 0.2 Absolute Neuts (auto) 5.3 Absolute Lymphs (auto) 3.61 Nucleated RBC % 0 Sodium 141 Potassium 3.9 Chloride 108 H Carbon Dioxide 26.0 Anion Gap 7 BUN 17 Creatinine 1.22 H Estim Creat Clear Calc 23.78 Est GFR (MDRD) Af Amer 54 L Est GFR (MDRD) Non-Af 44 L BUN/Creatinine Ratio 13.9 Glucose 172 H Calcium 9.2 Troponin I High Sens 6 Radiography Diagnostic Testing: Clinical Impression(s) from Imaging Studies Chest X-Ray 11/26/21 23:37 IMPRESSION: No radiographic evidence of acute cardiopulmonary disease. Electronically Signed: Lion Gaviria MD at 0:11 EDT , Rhythm Strip Rhythm Strip: A-fib Rate: 80 Ectopy: None EKG Initial EKG: Attestation: I personally reviewed and interpreted this EKG as follows: Interpretation: No Acute Injury Pattern and Atrial Fibrillation Comments: Q waves V1-2 Prior: Unchanged (Same morphology. Sinus rhythm on last EKG. History of paroxysmal A. fib.) Discharge Plan Dx/Rx/DC Orders Clinical Impression: Intermittent chest pain, History of coronary artery disease, PAF (paroxysmal atrial fibrillation) Disposition Disposition: Acute Care Hospital [facility]
[2021-11-27 00:47] LABS: Absolute Lymphocyte Count 3.61 X10^3/uL (0.83-4.51); Absolute Neutrophil Count 5.3 X10^3/uL (2.0-7.7); Basophil# 0.02 X10^3/uL; Basophil% 0.2 % (0-1); Eosinophil# 0.33 X10^3/uL; Eosinophils% 3.2 % (0-5); Hematocrit 40.3 % (37-47); Hemoglobin 12.9 g/dL (12.0-15.0); Lymphocyte # 3.61 X10^3/ul (0.83-4.51); Lymphocyte % 35.5 % (19-41); Mean Corpuscular Hgb 30.4 pg (27.0-32.0); Mean Platelet Vol. 10.8 fl (6.2-12.0); Monocyte# 0.84 X10^3/uL; Monocyte% 8.3 % (0-10); NRBC Flagged by Analyzer 0 % (0-5); Neutrophil # 5.34 X10^3/uL (2.7-7.7); Neutrophil % 52.5 % (47-70); Platelet Count 179 K/mm3 (150-450); RBC Distribution Width CV 14.1 % (11.6-14.6); RBC Distribution Width SD 49.1 fl (35.1-43.9); Red Blood Count 4.24 M/mm3 (4.2-5.4); White Blood Count 10.2 K/mm3 (4.4-11.0)
[2021-11-27 01:11] LABS: Anion Gap 7 (5-15); BUN 17 mg/dL (7-18); BUN/Creat Ratio 13.9 RATIO (10-20); Calcium,Total 9.2 mg/dL (8.5-10.1); Chloride 108 mmol/L (98-107); Creatinine, Serum 1.22 mg/dL (0.55-1.02); EST Glomerular Filtration Rate 44 mL/min (>60); Est Glom Filt Rate - Afr Amer 54 mL/min (>60); Estimated Creatinine Clearance 23.78 ml/min; Glucose 172 mg/dL (74-106); Potassium 3.9 mmol/L (3.5-5.1); Sodium Level 141 mmol/L (136-145); Troponin-I HS 6 pg/mL (3.0-54.0)
--- NOTE | 2021-11-27 02:02 | PCM.HP.STD ---
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 Her pain is dull and episodic. The pain started while she was pushing cart at the grocery shops. The pain improves with rest and worsens with exertion. Also 2 days prior to presentation patient had dyspnea on exertion; and fatigue that has persisted. COUNT INCLUDES [facility] Medical History Atherosclerotic heart disease of [place] coronary artery without angina pectoris Diabetes mellitus type II, controlled Diverticulosis Essential hypertension History of basal cell carcinoma History of non-ST elevation myocardial infarction (NSTEMI) Internal bleeding hemorrhoids Lichen planus Macular degeneration PAF (paroxysmal atrial fibrillation) Presence of stent in coronary artery (~06/20/15) Pure hypercholesterolemia Rectal bleeding Urinary retention Home Medications atorvastatin 80 mg tablet 80 mg PO QHS 11/14/18 [History Last Taken 09/25/19] vit C 226 mg-vit E 90 mg-copper 0.8 mg-zinc oxide-lutein 5 mg capsule 1 cap PO BID eye health 11/14/18 [History Last Taken 09/25/19] cholecalciferol (vitamin D3) 25 mcg (1,000 unit) tablet 5,000 unit PO DAILY SUPPLEMENT 09/26/19 [History Last Taken 09/25/19] cyanocobalamin (vitamin B-12) 1,000 mcg tablet 1,000 mcg PO DAILY SUPPLEMENT 09/26/19 [History Last Taken 09/25/19] sulfasalazine 500 mg tablet 500 mg PO Q6H PRN PRN SKIN 09/26/19 [History Last Taken 09/25/19] lactobacillus combination no.9 4 billion cell capsule (Adult 50 Plus Probiotic) 4,000 mmu cells PO DAILY 01/30/20 [History Last Taken Unknown] furosemide 20 mg tablet 20 mg PO DAILY #90 tabs 03/12/21 [Rx Last Taken Unknown] potassium chloride 8 mEq capsule,extended release 16 meq PO DAILY #60 caps 04/15/21 [Rx Last Taken Unknown] amlodipine 5 mg tablet 5 mg PO DAILY #14 tabs 07/07/21 [Rx Last Taken Unknown] losartan 25 mg tablet 25 mg PO DAILY #14 tabs 07/07/21 [Rx Last Taken Unknown] metoprolol tartrate 100 mg tablet 100 mg PO BID heart #28 tabs 07/07/21 [Rx Last Taken Unknown] apixaban 5 mg tablet 5 mg PO BID #180 tabs 08/28/21 [Rx Last Taken Unknown] trazodone 50 mg tablet 50 mg PO QHS 11/27/21 [History Last Taken Unknown] Allergy/AdvReac Type Severity Reaction Status Date / Time codeine AdvReac Nausea Verified 11/26/21 23:24 lisinopril AdvReac Cough Verified 11/26/21 23:24 Family History Mother Hypertension Heart disease Diabetes Father Diabetes Hypertension Sister Hypertension Diabetes Sister Diabetes Hypertension Sister Diabetes Hypertension Sister Diabetes Hypertension Surgical History History of bilateral oophorectomy History of colonoscopy (~09/2019) History of hemorrhoidectomy (~10/2019) History of repair of rotator cuff History of total hysterectomy Presence of coronary angioplasty implant and graft (~06/20/15) Social History Smoking Status: Never smoker alcohol intake: never substance use type: does not use caffeine: No ROS ROS Narrative Pertinent positives and pertinent negatives as noted in HPI. All other systems were reviewed and are negative. Vital Signs Vital Signs Vital Signs: 11/26/21 23:23 11/26/21 23:24 11/27/21 00:10 Temperature 98.1 F 98.1 F Temperature Source Oral Oral Pulse Rate 57 L 57 L Respiratory Rate 16 16 Respiratory Effort Short of Breath Blood Pressure 170/92 H 170/92 H Blood Pressure Mean 118 118 Pulse Ox 97 97 Oxygen Delivery Method Room Air Room Air 11/27/21 00:21 11/27/21 00:31 11/27/21 01:36 Temperature Temperature Source Pulse Rate 73 66 Respiratory Rate 16 19 H Respiratory Effort Blood Pressure 159/93 H 159/88 H Blood Pressure Mean 115 111 Pulse Ox 98 100 Oxygen Delivery Method Room Air Room Air Room Air Weight Weight: 73.482 kg Body Mass Index (BMI) 31.6 Physical Exam Narrative Physical exam: General: Well-nourished, well-developed. Head: Normocephalic, atraumatic, no tenderness Eyes: Vision is grossly intact. EOMI ENT, no trauma, moist mucous membranes, no rhinorrhea Neck: Nontender, full range of motion, no spinal tenderness, deformities, step-off CVS: Regular rate and rhythm. S1-S2 present. No murmur, gallop or rub. Respiratory : clear to auscultation bilaterally, chest wall nontender, no wheezing Abdomen: Soft, nontender, nondistended, normal bowel sounds, no masses : Deferred Back: Nontender, no CVA tenderness, no midline spinal tenderness, deformities, step-offs Extremities: Nontender full range of motion, no trauma Skin: Normal color, no trauma, abrasions Neuro: Alert, oriented, cranial nerves II through XII grossly intact. Psychiatry: Normal mood. Normal affect. Not depressed. Not anxious. Results Lab / Micro Data Result Diagrams: 11/27/21 00:30 11/27/21 00:30 Labs: Laboratory Results - last 24 hr 11/27/21 00:30: WBC 10.2, RBC 4.24, Hgb 12.9, Hct 40.3, MCV 95.0, MCH 30.4, MCHC 32.0, RDW Std Deviation 49.1 H, RDW Coeff of Yoli 14.1, Plt Count 179, MPV 10.8, Immature Gran % (Auto) 0.300, Neut % (Auto) 52.5, Lymph % (Auto) 35.5, [place] % (Auto) 8.3, Eos % (Auto) 3.2, Baso % (Auto) 0.2, Absolute Neuts (auto) 5.3, Absolute Lymphs (auto) 3.61, Nucleated RBC % 0 11/27/21 00:30: Sodium 141, Potassium 3.9, Chloride 108 H, Carbon Dioxide 26.0, Anion Gap 7, BUN 17, Creatinine 1.22 H, Estim Creat Clear Calc 23.78, Est GFR (MDRD) Af Amer 54 L, Est GFR (MDRD) Non-Af 44 L, BUN/Creatinine Ratio 13.9, Glucose 172 H, Calcium 9.2, Troponin I High Sens 6 Rhythm Strip Rhythm Strip: A-fib Rate: 80 Ectopy: None Radiology Impression Chest X-Ray 11/26/21 23:37 IMPRESSION: No radiographic evidence of acute cardiopulmonary disease. Electronically Signed: Lion Gaviria MD at 0:11 EDT Reading Location ID and State: [facility] / [place] Tel , Service support , Assessment & Plan Assessment/Plan (1) Intermittent chest pain: PLAN: Plan Chest Pain Place on a monitored bed at PCU Actual CXR image was visualized and independently visualized. No acute cardiopulmonary process was noted. CBC on presentation was reviewed. CBC is unremarkable. Actual EKG tracing was independently visualized. EKG tracing showed Afib with controlled rate; and q waves in V1 and V2. Patient reports a history of epistaxis and bleeding from her mouth from ASA. Eliquis continued Morphine as needed for pain ordered Will check lipid panel. Statin: Home high intensity statin continued Initial high sensitivity troponin of 6; trend Stat EKG as needed for chest pain Dobutamine stress test echocardiogram in a.m. if the cardiac enzymes are negative. Echocardiogram ordered. Hypertension Blood pressure is not within goal Losartan and metoprolol continued. Hold metoprolol in a.m. of stress test. Trend blood pressure and adjust blood pressure medications. Atrial fibrillation Rate controlled on presentation. Metoprolol as above. Monitor on telemetry. CKD stage IIIb: Stable. Trend BMP. DVT prophylaxis: Not indicated as patient is on Eliquis and Eliquis has been continued for A. fib. Charges/Coding Visit Charges OBSV E&M: 20383 Initial observation care L3
--- NOTE | 2021-11-27 02:33 | EKG12_ITS ---
Test Reason : Blood Pressure : / mmHG Vent. Rate : 077 BPM Atrial Rate : 000 BPM P-R Int : 000 ms QRS Dur : 076 ms QT Int : 386 ms P-R-T Axes : 000 033 031 degrees QTc Int : 436 ms Atrial fibrillation Abnormal ECG Confirmed by MARGOTH MCCLAIN, AMY ([id number]), scientific editor PATRICK CLAIRE ([id number]) on 11/30/2021 10:36:23 AM Referred By: Confirmed By:AMY JUSTIN MD
--- NOTE | 2021-11-27 02:33 | ECHOD_ITS ---
Reason For Study: Dyspnea/SOB Procedure This was a 2D Doppler, Color Flow transthoracic echocardiogram. Exam performed in department. Left Ventricle Normal left ventricle. The estimated ejection fraction is 55-60 %. Right Ventricle Normal right ventricle. Normal systolic function. Atria The left atrium is mildly enlarged. Mitral Valve There is mild mitral annular calcification. Mild (1+) mitral valve insufficiency. Tricuspid Valve Normal tricuspid valve. Moderate (2+) tricuspid valve insufficiency. Aortic Valve Aortic sclerosis, no stenosis. Mild (1+) aortic valve insufficiency. Pulmonic Valve The pulmonic valve is not well visualized. Mild (1+) eccentric pulmonic valve insufficiency. Great Vessels Normal aortic root. Pericardium/Pleural No pericardial effusion. MMode/2D Measurements & Calculations LVIDd: 3.9 cm IVSd: 1.1 cm LVOT diam: 2.0 cm LVIDs: 2.1 cm LVPWd: 1.0 cm LVOT area: 3.0 cm2 RVDd: 3.0 cm FS: 47.2 % Ao root diam: 3.4 cm LAV(MOD-bp): 64.5 ml LVAd ap4: 17.9 cm2 ACS: 0.83 cm LAV(MOD-bp) Indexed: 38.0 ml/m2 LVLd ap4: 6.6 cm LAV(MOD-sp2): 75.2 ml EDV(MOD-sp4): 40.1 ml LAV(MOD-sp4): 46.3 ml EDV(sp4-el): 41.3 ml LVAs ap4: 9.7 cm2 LVLs ap4: 5.4 cm ESV(MOD-sp4): 14.3 ml ESV(sp4-el): 14.5 ml EF(MOD-sp4): 64.2 % EF(sp4-el): 64.8 % SV(MOD-sp4): 25.8 ml SV(sp4-el): 26.8 ml LA A4 area: 18.9 cm2 LA dimension(2D): 4.4 cm RA A4 area: 19.0 cm2 Doppler Measurements & Calculations MV E max joaquim: 128.5 cm/sec Ao V2 max: 194.0 cm/sec AI max joaquim: 325.1 cm/sec Ao max P.1 mmHg AI max P.3 mmHg Ao V2 mean: 136.0 cm/sec Ao mean P.1 mmHg AI dec slope: 156.6 cm/sec2 Ao V2 VTI: 43.1 cm AI P1/2t: 607.9 msec DANIEL(I,D): 1.8 cm2 DANIEL(V,D): 1.8 cm2 LV V1 max: 117.5 cm/sec SV(LVOT): 77.8 ml PA V2 max: 81.2 cm/sec LV V1 max P.5 mmHg LV V1 mean P.2 mmHg LV V1 mean: 86.4 cm/sec LV V1 VTI: 25.7 cm PI end-d joaquim: 103.5 cm/sec TR max joaquim: 347.3 cm/sec TR max P.2 mmHg ECHO/Echo Complete Interpretation Summary The estimated ejection fraction is 55-60 %. Normal LV systolic function Grade #2 Diastolic dysfunction No change from prior echo Ordering Physician: Shahab Greenwood Referring Physician: Albania Shen Performed By: Roselyn Shaikh, MADELINE, RVT
--- NOTE | 2021-11-27 03:35 | NURSING ---
Patient states she took her Cozaar late last night.
[2021-11-27 04:15] LABS: Troponin-I HS 7 pg/mL (3.0-54.0)
[2021-11-27 04:32] LABS: Cholesterol 102 mg/dL (200); High Density Lipoprotein 48 mg/dL; Triglycerides 74 mg/dL; Very Low Density Lipoprotein 15 mg/dL (5-40)
[2021-11-27 07:58] LABS: Troponin-I HS 7 pg/mL (3.0-54.0)
[2021-11-27] MEDS: Potassium Chloride Oral Tablet 20 MEQ PO (11:26)
[2021-11-27] MEDS: Cholecalciferol (Vit D3) 125 MCG CAPSULE (5,000 UNITS) PO (11:26)
[2021-11-27] MEDS: Metoprolol Tartrate 100 MG Tablet PO (11:26)
[2021-11-27] MEDS: Cyanocobalamin 500 MCG Tablet 1000 MCG PO (11:26)
[2021-11-27] MEDS: Losartan Potassium 25 MG Tablet PO (11:27)
[2021-11-27] MEDS: amLODIPine 5 MG Tablet PO (11:27)
[2021-11-27] MEDS: Furosemide 20 MG Tablet PO (11:27)
--- NOTE | 2021-11-27 15:50 | DCINST_ITS ---
Discharge Instructions Diet Discharge Diet: 1800 Calorie Control Diet and 2000 mg Sodium Diet Activity Discharge Activity: Return to Normal Activity Dressing / Incision Call your doctor if you observe: Shortness of breath, Fainting spells, Swelling in the ankles, Chest pain and Increased palpitations (irregular heartbeat) Follow Up Care Test Results: Test results from this visit will be discussed in further detail at your follow- up appointment, if applicable. Discharge Plan Admission Admit Date/Time: 11/27/21 01:46 Primary Reason for Your Visit: Chest Pain Attending Provider: Lonnie Zhang Primary Care Provider: Albania Shen Consulting Providers: Shahab Greenwood Discharge Orders/Prescriptions Prescriptions: Continued Adult 50 Plus Probiotic 4 billion cell capsule 4,000 mmu cells PO DAILY Rx Instructions: administer with a meal atorvastatin 80 MG tablet 80 mg PO QHS vit E-X-rfegll-zinc-lutein 1 EACH capsule 1 cap PO BID sulfasalazine 500 MG tablet 500 mg PO Q6H PRN PRN (Reason: SKIN) cyanocobalamin (vitamin B-12) 1,000 MCG tablet 1,000 mcg PO DAILY cholecalciferol (vitamin D3) 1,000 UNIT tablet 5,000 unit PO DAILY trazodone 50 mg tablet 50 mg PO QHS Rx Instructions: 1/2 TAB furosemide 20 mg tablet 20 mg PO DAILY Qty: 90 3RF potassium chloride 8 mEq capsule, extended release 16 meq PO DAILY Qty: 60 11RF losartan 25 mg tablet 25 mg PO DAILY Qty: 14 1RF metoprolol tartrate 100 mg tablet 100 mg PO BID Qty: 28 1RF amlodipine 5 mg tablet 5 mg PO DAILY Qty: 14 1RF apixaban 5 mg tablet 5 mg PO BID Qty: 180 4RF Hold Instructions: bleeding Referrals / Follow Up: Albania Shen MD [Primary Care Provider] - Disposition Disposition (needs filled in before D/C Order can be placed): Home, Self Care
--- NOTE | 2021-11-27 15:56 | DS.PCM_ITS ---
Documented by User: NIKOS Zarco 11/27/21 16:00 Providers Date of Admission: 11/27/21 Date of Discharge: 11/27/21 Primary Care Physician: Dr. Albania Shen MD Reason For Visit: chest pain Diagnosis Discharge Diagnosis (1) Intermittent chest pain: Status: Acute Code(s): R07.9 - Chest pain, unspecified Medications at Discharge Home Medications atorvastatin 80 mg tablet 80 mg PO QHS 11/14/18 vit C 226 mg-vit E 90 mg-copper 0.8 mg-zinc oxide-lutein 5 mg capsule 1 cap PO BID eye health 11/14/18 cholecalciferol (vitamin D3) 25 mcg (1,000 unit) tablet 5,000 unit PO DAILY SUPPLEMENT 09/26/19 cyanocobalamin (vitamin B-12) 1,000 mcg tablet 1,000 mcg PO DAILY SUPPLEMENT 09/26/19 sulfasalazine 500 mg tablet 500 mg PO Q6H PRN PRN SKIN 09/26/19 lactobacillus combination no.9 4 billion cell capsule (Adult 50 Plus Probiotic) 4,000 mmu cells PO DAILY 01/30/20 furosemide 20 mg tablet 20 mg PO DAILY #90 tabs 03/12/21 potassium chloride 8 mEq capsule,extended release 16 meq PO DAILY #60 caps 04/15/21 amlodipine 5 mg tablet 5 mg PO DAILY #14 tabs 07/07/21 losartan 25 mg tablet 25 mg PO DAILY #14 tabs 07/07/21 metoprolol tartrate 100 mg tablet 100 mg PO BID heart #28 tabs 07/07/21 apixaban 5 mg tablet 5 mg PO BID #180 tabs 08/28/21 trazodone 50 mg tablet 50 mg PO QHS 11/27/21 Hospital Course Operations None Procedures Stress test Summary of Care Provided Minutes Spent on Discharge: 35 Hospital Course: Patient is an 86-year-old female who initially presented to the ER on 11/26/2021 with complaints of chest pain. Chest pain was intermittent and dull and achy. Patient underwent stress test today which was negative. Patient will be discharged home with instructions to follow-up with her primary care provider and cardiology. Physical Exam Const alert, oriented x3 and no apparent distress HEENT normocephalic, head/scalp atraumatic and moist oral mucous membranes Eyes conjunctivae normal and no scleral icterus Neck supple General: trachea midline Resp normal respiratory effort, normal air movement and clear to auscultation bilaterally Cardio regular rate, regular rhythm, S1 normal heart sound, S2 normal heart sound and peripheral pulses 2+ throughout GI normal to inspection, nondistended, normoactive bowel sounds, soft to palpation and non-tender Extremity normal capillary refill and no clubbing, cyanosis or edema Skin skin turgor normal General Skin Exam: no breakdown Lesions: no lesions Rashes: no rashes Neuro no focal motor deficits and no sensory deficits noted Speech: speech normal Psych affect normal Weight / BMI Weight Weight: 160 lb 14.999 oz Body Mass Index (BMI) 31.4 ABG / Lab / Microbiology Data Result Diagrams: 11/27/21 00:30 11/27/21 00:30 Laboratory: Laboratory Results - last 24 hr 11/27/21 00:30: WBC 10.2, RBC 4.24, Hgb 12.9, Hct 40.3, MCV 95.0, MCH 30.4, MCHC 32.0, RDW Std Deviation 49.1 H, RDW Coeff of Yoli 14.1, Plt Count 179, MPV 10.8, Immature Gran % (Auto) 0.300, Neut % (Auto) 52.5, Lymph % (Auto) 35.5, Runnels % (Auto) 8.3, Eos % (Auto) 3.2, Baso % (Auto) 0.2, Absolute Neuts (auto) 5.3, Abs olute Lymphs (auto) 3.61, Nucleated RBC % 0 11/27/21 00:30: Sodium 141, Potassium 3.9, Chloride 108 H, Carbon Dioxide 26.0, Anion Gap 7, BUN 17, Creatinine 1.22 H, Estim Creat Clear Calc 23.78, Est GFR (MDRD) Af Amer 54 L, Est GFR (MDRD) Non-Af 44 L, BUN/Creatinine Ratio 13.9, Glucose 172 H, Calcium 9.2, Troponin I High Sens 6 11/27/21 03:42: Triglycerides 74, Cholesterol 102, LDL Cholesterol 39, VLDL Cholesterol 15, HDL Cholesterol 48 11/27/21 03:42: Troponin I High Sens 7 11/27/21 06:40: Troponin I High Sens 7 Radiography Diagnostic Testing: Radiology Impression Chest X-Ray 11/26/21 23:37 IMPRESSION: No radiographic evidence of acute cardiopulmonary disease. Electronically Signed: Lion Gaviria MD at 0:11 EDT , D/C Instructions Discharge Diet: 1800 Calorie Control Diet and 2000 mg Sodium Diet Call your doctor if you observe: Shortness of breath, Fainting spells, Swelling in the ankles, Chest pain and Increased palpitations (irregular heartbeat) Meaningful Use Info Meaningful Use Diagnoses (Choose all that apply): None applicable Discharge Plan Admission Admit Date/Time: 11/27/21 01:46 Primary Reason for Your Visit: Chest Pain Attending Provider: Lonnie Zhang Primary Care Provider: Albania Shen Consulting Providers: Shahab Greenwood Discharge Orders/Prescriptions Prescriptions: Continued Adult 50 Plus Probiotic 4 billion cell capsule 4,000 mmu cells PO DAILY Rx Instructions: administer with a meal atorvastatin 80 MG tablet 80 mg PO QHS vit L-K-zjexgc-zinc-lutein 1 EACH capsule 1 cap PO BID sulfasalazine 500 MG tablet 500 mg PO Q6H PRN PRN (Reason: SKIN) cyanocobalamin (vitamin B-12) 1,000 MCG tablet 1,000 mcg PO DAILY cholecalciferol (vitamin D3) 1,000 UNIT tablet 5,000 unit PO DAILY trazodone 50 mg tablet 50 mg PO QHS Rx Instructions: 1/2 TAB furosemide 20 mg tablet 20 mg PO DAILY Qty: 90 3RF potassium chloride 8 mEq capsule, extended release 16 meq PO DAILY Qty: 60 11RF losartan 25 mg tablet 25 mg PO DAILY Qty: 14 1RF metoprolol tartrate 100 mg tablet 100 mg PO BID Qty: 28 1RF amlodipine 5 mg tablet 5 mg PO DAILY Qty: 14 1RF apixaban 5 mg tablet 5 mg PO BID Qty: 180 4RF Hold Instructions: bleeding Referrals / Follow Up: Albania Shen MD [Primary Care Provider] - Within 2 Weeks Disposition Disposition (needs filled in before D/C Order can be placed): Home, Self Care Documented by User: Dr. Lonnie Zhang DO 11/27/21 16:05 Providers Date of Admission: 11/27/21 Reason For Visit: chest pain Diagnosis Discharge Diagnosis (1) Intermittent chest pain: Status: Acute Code(s): R07.9 - Chest pain, unspecified Medications at Discharge Home Medications atorvastatin 80 mg tablet 80 mg PO QHS 11/14/18 vit C 226 mg-vit E 90 mg-copper 0.8 mg-zinc oxide-lutein 5 mg capsule 1 cap PO BID eye health 11/14/18 cholecalciferol (vitamin D3) 25 mcg (1,000 unit) tablet 5,000 unit PO DAILY SUPPLEMENT 09/26/19 cyanocobalamin (vitamin B-12) 1,000 mcg tablet 1,000 mcg PO DAILY SUPPLEMENT 09/26/19 sulfasalazine 500 mg tablet 500 mg PO Q6H PRN PRN SKIN 09/26/19 lactobacillus combination no.9 4 billion cell capsule (Adult 50 Plus Probiotic) 4,000 mmu cells PO DAILY 01/30/20 furosemide 20 mg tablet 20 mg PO DAILY #90 tabs 03/12/21 potassium chloride 8 mEq capsule,extended release 16 meq PO DAILY #60 caps 04/15/21 amlodipine 5 mg tablet 5 mg PO DAILY #14 tabs 07/07/21 losartan 25 mg tablet 25 mg PO DAILY #14 tabs 07/07/21 metoprolol tartrate 100 mg tablet 100 mg PO BID heart #28 tabs 07/07/21 apixaban 5 mg tablet 5 mg PO BID #180 tabs 08/28/21 trazodone 50 mg tablet 50 mg PO QHS 11/27/21 Hospital Course Summary of Care Provided Hospital Course: Patient is an 86-year-old female who initially presented to the ER on 11/26/2021 with complaints of chest pain. Chest pain was intermittent and dull and achy. Patient underwent stress test today which was negative. Patient will be discharged home with instructions to follow-up with her primary care provider and cardiology. Patient seen and examined independently. Data and vitals reviewed. I agree with the above note by the nurse practitioner. Patient not having any chest pain at present. No acute distress and afebrile. Heart rate regular rate and rhythm plus S1-S2 with any murmurs Rubs. Lungs Are Clear to Auscultation Bilaterally. Assessment and plan 1. Chest pain: Atypical. Resolved. Stress test is negative. Patient be discharged home. ABG / Lab / Microbiology Data Result Diagrams: 11/27/21 00:30 11/27/21 00:30 Discharge Plan Admission Admit Date/Time: 11/27/21 01:46 Primary Reason for Your Visit: Chest Pain Attending Provider: Lonnie Zhang Primary Care Provider: Albania Shen Consulting Providers: Shahab Greenwood Discharge Orders/Prescriptions Prescriptions: Continued Adult 50 Plus Probiotic 4 billion cell capsule 4,000 mmu cells PO DAILY Rx Instructions: administer with a meal atorvastatin 80 MG tablet 80 mg PO QHS vit R-M-qkeeix-zinc-lutein 1 EACH capsule 1 cap PO BID sulfasalazine 500 MG tablet 500 mg PO Q6H PRN PRN (Reason: SKIN) cyanocobalamin (vitamin B-12) 1,000 MCG tablet 1,000 mcg PO DAILY cholecalciferol (vitamin D3) 1,000 UNIT tablet 5,000 unit PO DAILY trazodone 50 mg tablet 50 mg PO QHS Rx Instructions: 1/2 TAB furosemide 20 mg tablet 20 mg PO DAILY Qty: 90 3RF potassium chloride 8 mEq capsule, extended release 16 meq PO DAILY Qty: 60 11RF losartan 25 mg tablet 25 mg PO DAILY Qty: 14 1RF metoprolol tartrate 100 mg tablet 100 mg PO BID Qty: 28 1RF amlodipine 5 mg tablet 5 mg PO DAILY Qty: 14 1RF apixaban 5 mg tablet 5 mg PO BID Qty: 180 4RF Hold Instructions: bleeding Referrals / Follow Up: Albania Shen MD [Primary Care Provider] - Within 2 Weeks Disposition Disposition (needs filled in before D/C Order can be placed): Home, Self Care Charges/Coding Visit Charges OBSV E&M: 30482 Observation care discharge
--- NOTE | 2021-11-27 16:06 | STRESSREP_ITS ---
Stress Test Report Pharmacologic/Lexiscan myocardial perfusion stress test. Indication; Tasha Sweet is a 86-year-old female who had a history of paroxysmal atrial fibrillation, CAD s/p prior coronary artery stent Patient also had history of hypertension diabetes who presented to the emergency department at [facility] complaining of right-sided chest pain that radiated to the top of the side of the right arm that has been also associated with dyspnea on exertion. Patient underwent Lexiscan sestamibi myocardial perfusion study Stress protocol: Resting EKG demonstrates. Normal sinus rhythm. 0.4 mg of regadenoson was infused per usual protocol followed by rapid intravenous saline flush injection continuous EKG monitoring was performed. The maximum heart rate attained was 93 bpm which was 69% of maximum predicted heart . Stress EKG showed: Underlying atrial fibrillation with controlled ventricular rate Arrhythmia: Baseline atrial fibrillation Symptoms: Patient had no symptoms of chest pain Blood pressure at rest: 162/90 mmHg blood pressure at the end of stress: 162/90 mmHg Myocardial perfusion protocol. 11.1 mCi ]of Technetium 99m Sestamibi was injected at rest. [ 0.4 mg ]of Regadenoson was infused per usual protocol peak infusion 36 mCi ]of Technetium 99m sestamibi was injected. Stress images were obtained stress and rest images were reconstructed and compared in the short axis vertical and horizontal long axis. Gated images were also obtained Perfusion SPECT analysis: Review of the images demonstrate normal uptake of sestamibi at rest, post stress images demonstrate similar uptake of sestamibi to the resting images, homogeneous tracer uptake With no evidence of reversible myocardial ischemia. Gated SPECT analysis: Gated SPECT images were not done in this case due to underlying atrial fibrillation Conclusion: Negative Lexiscan sestamibi myocardial perfusion study for reversible myocardial ischemia Ryan Rosen[place]FACC[place] [place]
[2021-11-27] MEDS: APIXABAN 5 MG TABLET PO (16:11)
== END 2021-11-27 15:55 | disposition home or self-care (01) ==
LOC: ED 11-27 01:51 → PCU 11-27 02:03
PROVIDERS: Admitting Provider Hospitalist; Emergency Provider Emergency Medicine; PCP Internal Medicine
DX: R07.89 Other chest pain (principal); E11.22 Type 2 diabetes mellitus with diabetic chronic kidney disease; I48.0 Paroxysmal atrial fibrillation; N18.32 Chronic kidney disease, stage 3b; E78.5 Hyperlipidemia, unspecified; Z87.891 Personal history of nicotine dependence; R53.83 Other fatigue; I12.9 Hypertensive chronic kidney disease with stage 1 through stage 4 chronic kidney disease, or unspecified chronic kidney disease; I25.10 Atherosclerotic heart disease of native coronary artery without angina pectoris; I25.2 Old myocardial infarction; Z79.899 Other long term (current) drug therapy; Z79.01 Long term (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
CPT/HCPCS: 36415; 71045; 78452; 80048; 80061; 84484; 85025; 93005; 93017; 93306; 99218; 99284; A9500; A4216; G0378; J2785

== ENCOUNTER → 2023-12-13 | Outpatient (CLI) | payer MEDICARE, SELFPAY ==
--- NOTE | 2023-12-13 16:15 | RAD_ITS ---
EXAM: XR CHEST, 2 VIEWS CLINICAL INDICATION: Shortness of breath TECHNIQUE: Frontal and lateral views of the chest. COMPARISON: 11/26/2021 FINDINGS: LUNGS AND PLEURAL SPACES: Hyperinflated lungs with diffuse interstitial prominence likely secondary to COPD. No focal pneumonia. No pneumothorax. No effusion. HEART: No significant abnormality. Cardiac silhouette not enlarged. MEDIASTINUM: Central airways and mediastinal contour are unremarkable. BONES/JOINTS: Degenerative changes in length. No acute fracture. SOFT TISSUES: No significant abnormality. VASCULATURE: Atherosclerosis. RAD/Chest PA and Lateral IMPRESSION: Hyperinflated lungs with diffuse interstitial prominence likely secondary to COPD. No focal pneumonia. Electronically Signed: Abdi Gibson DO at 0:11 EDT ,
[2023-12-13 16:24] LABS: Absolute Lymphocyte Count 3.14 X10^3/uL (0.83-4.51); Absolute Neutrophil Count 5.1 X10^3/uL (2.0-7.7); Basophil# 0.04 X10^3/uL; Basophil% 0.4 % (0-1); Eosinophils% 4.2 % (0-5); Hematocrit 42.1 % (37-47); Hemoglobin 13.4 g/dL (12.0-15.0); Lymphocyte # 3.14 X10^3/ul (0.83-4.51); Lymphocyte % 32.8 % (19-41); Mean Corp Hgb Conc 31.8 g/dL (32-36); Mean Corpuscular Hgb 30.5 pg (27.0-32.0); Mean Corpuscular Volume 95.7 fL (81-99); Mean Platelet Vol. 11.4 fl (6.2-12.0); Monocyte# 0.91 X10^3/uL; Monocyte% 9.5 % (0-10); NRBC Flagged by Analyzer 0 % (0-5); Neutrophil # 5.05 X10^3/uL (2.7-7.7); Neutrophil % 52.8 % (47-70); Platelet Count 188 K/mm3 (150-450); RBC Distribution Width CV 13.7 % (11.6-14.6); RBC Distribution Width SD 48.1 fl (35.1-43.9); White Blood Count 9.6 K/mm3 (4.4-11.0)
[2023-12-13 16:40] LABS: BNP,B-Type NATRIURETIC PEPTIDE 234.6 pg/mL (0-100)
[2023-12-13 16:44] LABS: Anion Gap 8 (5-15); BUN 21 mg/dL (7-18); BUN/Creat Ratio 16.3 RATIO (10-20); Calcium,Total 9.4 mg/dL (8.5-10.1); Chloride 107 mmol/L (98-107); Creatinine, Serum 1.29 mg/dL (0.55-1.02); EST Glomerular Filtration Rate 41 mL/min (>60); Est Glom Filt Rate - Afr Amer 50 mL/min (>60); Glucose 158 mg/dL (74-106); Potassium 3.5 mmol/L (3.5-5.1); Sodium Level 140 mmol/L (136-145)
== END | disposition home or self-care (01) ==
PROVIDERS: PCP Internal Medicine; Referring Provider Nurse Practitioner Family; Visit Provider Nurse Practitioner Family
DX: I10 Essential (primary) hypertension (principal); I48.0 Paroxysmal atrial fibrillation; E11.9 Type 2 diabetes mellitus without complications; I25.10 Atherosclerotic heart disease of native coronary artery without angina pectoris; R06.02 Shortness of breath; Z87.19 Personal history of other diseases of the digestive system
CPT/HCPCS: 36415; 71046; 80048; 83880; 85025

== ENCOUNTER → 2024-02-17 | Outpatient (CLI) | payer MEDICARE, SELFPAY ==
[2024-02-17 09:52] LABS: ALB/GLOB Ratio 0.9 RATIO (0.9-2.4); AST(SGOT) 16 U/L (15-37); Alanine Aminotransfer ALT/SGPT 21 U/L (13-56); Albumin, Serum 3.4 g/dL (3.2-5.0); Alkaline Phosphatase 112 U/L (45-117); Anion Gap 7 (5-15); BUN 21 mg/dL (7-18); BUN/Creat Ratio 16.4 RATIO (10-20); Calcium,Total 9.2 mg/dL (8.5-10.1); Chloride 108 mmol/L (98-107); Cholesterol 117 mg/dL (200); Creatinine, Serum 1.28 mg/dL (0.55-1.02); EST Glomerular Filtration Rate 42 mL/min (>60); Est Glom Filt Rate - Afr Amer 51 mL/min (>60); Globulin 3.9 g/dL (2.2-4.2); Glucose 138 mg/dL (74-106); High Density Lipoprotein 53 mg/dL; Potassium 3.7 mmol/L (3.5-5.1); Protein, Total 7.3 g/dL (6.4-8.2); Sodium Level 140 mmol/L (136-145); Triglycerides 77 mg/dL; Very Low Density Lipoprotein 15 mg/dL (5-40)
== END | disposition home or self-care (01) ==
LOC: LAB 08:44
PROVIDERS: PCP Internal Medicine; Referring Provider Internal Medicine Cardiovascular Disease; Visit Provider Internal Medicine Cardiovascular Disease
DX: I25.10 Atherosclerotic heart disease of native coronary artery without angina pectoris (principal); I48.0 Paroxysmal atrial fibrillation; E11.9 Type 2 diabetes mellitus without complications; I10 Essential (primary) hypertension; E78.00 Pure hypercholesterolemia, unspecified
CPT/HCPCS: 36415; 80053; 80061

== ENCOUNTER → 2024-03-02 | Outpatient (CLI) | payer MEDICARE, SELFPAY ==
--- NOTE | 2024-03-02 06:53 | ECHOD_ITS ---
Reason For Study: CHEST PAIN Procedure This was a 2D Doppler, Color Flow transthoracic echocardiogram. Exam performed in department. Left Ventricle Normal LV size. Mild concentric left ventricular hypertrophy. The left ventricular ejection fraction is 65 %. Unable to assess diastolic dysfunction due to arrhythmia. Right Ventricle Normal right ventricle. Atria There is severe biatrial dilatation. Mitral Valve Mild (1+) mitral valve insufficiency. Tricuspid Valve Moderate (2+) tricuspid valve insufficiency. Right ventricular systolic pressure estimated to be 64 mmHg. Aortic Valve Mild diffuse aortic valve calcification. Mild aortic valve stenosis. Mean peak gradient 8 mmHg. Mild to moderate aortic valve regurgitation. Pulmonic Valve The pulmonic valve is not well visualized. Mild (1+) pulmonic valve insufficiency. Great Vessels Mildly dilated aortic root. Pericardium/Pleural No pericardial effusion. MMode/2D Measurements & Calculations LVIDd: 3.6 cm IVSd: 1.2 cm LVOT diam: 2.1 cm LVIDs: 2.5 cm LVPWd: 1.2 cm LVOT area: 3.3 cm2 RVDd: 3.2 cm FS: 29.6 % Ao root diam: 3.9 cm LAV(MOD-bp): 44.7 ml LVAd ap4: 15.0 cm2 LAV(MOD-bp) Indexed: 25.8 ml/m2 LVLd ap4: 6.1 cm LAV(MOD-sp2): 47.8 ml EDV(MOD-sp4): 31.7 ml LAV(MOD-sp4): 43.2 ml EDV(sp4-el): 31.6 ml LVAs ap4: 8.8 cm2 LVLs ap4: 5.3 cm ESV(MOD-sp4): 14.0 ml ESV(sp4-el): 12.5 ml EF(MOD-sp4): 55.7 % EF(sp4-el): 60.5 % SV(MOD-sp4): 17.7 ml SV(sp4-el): 19.1 ml LA A4 area: 17.0 cm2 LA dimension(2D): 4.0 cm RA A4 area: 15.5 cm2 Doppler Measurements & Calculations MV E max joaquim: 125.7 cm/sec Ao V2 max: 195.1 cm/sec AI max joaquim: 381.0 cm/sec Ao max P.2 mmHg AI max P.1 mmHg Ao V2 mean: 133.1 cm/sec Ao mean P.2 mmHg AI dec slope: 203.2 cm/sec2 Ao V2 VTI: 44.4 cm AI P1/2t: 549.3 msec AV (velocity ratio): 0.94 DANIEL(I,D): 3.1 cm2 DANIEL(V,D): 3.0 cm2 LV V1 max: 174.2 cm/sec SV(LVOT): 138.6 ml PA V2 max: 80.3 cm/sec LV V1 max P.2 mmHg PA max PG (full): 0.23 mmHg LV V1 mean P.7 mmHg PA V2 mean: 61.9 cm/sec LV V1 mean: 120.0 cm/sec PA mean PG (full): 0.44 mmHg LV V1 VTI: 41.6 cm PI end-d joaquim: 141.7 cm/sec TR max joaquim: 385.0 cm/sec TR max P.3 mmHg ECHO/Echo Complete Interpretation Summary Mild concentric left ventricular hypertrophy. The left ventricular ejection fraction is 65 %. There is severe biatrial dilatation. Moderate (2+) tricuspid valve insufficiency. Right ventricular systolic pressure estimated to be 64 mmHg. Severe pulmonary h ypertension. Mild aortic valve stenosis. Mean peak gradient 8 mmHg. Mild to moderate aortic valve regurgitation. Mild (1+) pulmonic valve insufficiency. Mildly dilated aortic root. Ordering Physician: Rick Bermudez Referring Physician: Rick Bermudez Performed By: Stella Ray RCS
--- NOTE | 2024-03-02 10:09 | STRESSREP_ITS ---
Stress Test Report Date: 03/02/2024 Procedure: Pharmacologic stress nuclear imaging study Indications: Chest pain Consent: Per the patient Procedure: The patient underwent pharmacologic (Regadenoson 0.4mg ) evaluation with a peak heart rate of 97 beats per minute (73%predicted maximal heart rate) and a peak blood pressure of 144/88 mmHg. The baseline ECG demonstrated sinus rhythm with nonspecific ST changes. The peak pharmacologic ECG demonstrated no diagnostic ischemic changes. There were no cardiac dysrhythmias pretest, during pharmacologic infusion, or recovery. There was no complaint of chest discomfort during pharmacologic infusion or recovery. The patient was injected with 11.9 millicuries of technetium 99m Cardiolite and subsequently rest SPECT Cardiolite nuclear imaging was obtained in the horizontal long, vertical long, and short axis views. The patient underwent pharmacologic (Regadenoson) evaluation. The patient was injected with 33.5 millicuries of technetium 99m Cardiolite and subsequently stress SPECT Cardiolite nuclear imaging was obtained in the horizontal long, vertical long, and short axis views. A gated Cardiolite study at peak stress was obtained. The examination was stopped secondary to completion of protocol. Rest and stress SPECT Cardiolite nuclear imaging status post realignment, normalization, and attenuation correction demonstrate no fixed or reversible perfusion defects. There is end systolic thickening and brightening. The gated Cardiolite study demonstrates myocardial thickening and inward wall motion. The reported LVEF is 89%. Impression: 1. Pharmacologic (Regadenoson) evaluation 2. Peak pharmacologic ECG with no diagnostic ischemic changes. 3. There were no cardiac dysrhythmias pretest, during pharmacologic infusion, or recovery. 5. Rest and stress SPECT Cardiolite nuclear imaging demonstrate relative uniform tracer uptake and myocardial perfusion appearing within normal limits. 6. The gated Cardiolite study reports an LVEF of 89%. This note was generated with [email or web address] software. It may contain incorrect words, spelling, and punctuation that were not noted in checking the note before signing.
== END | disposition home or self-care (01) ==
PROVIDERS: PCP Internal Medicine; Referring Provider Internal Medicine Cardiovascular Disease; Visit Provider Internal Medicine Cardiovascular Disease
DX: R07.9 Chest pain, unspecified (principal); R06.02 Shortness of breath; I25.10 Atherosclerotic heart disease of native coronary artery without angina pectoris; E78.00 Pure hypercholesterolemia, unspecified; Z95.5 Presence of coronary angioplasty implant and graft
CPT/HCPCS: 78452; 93017; 93306; A9500; A4216; J2785

== ENCOUNTER → 2024-03-19 | Outpatient (CLI) | payer MEDICARE, SELFPAY ==
--- NOTE | 2024-03-19 08:47 | AAVD_ITS ---
Reason For Study: AAA Screening Aorta Measurements Aorta Doppler Measurements Proximal aorta measures1.46 x 1.67cm. in cross- Peak systolic flow velocities within the proximal sectional axis. aorta measure 92.2 cm/sec. Proximal aorta measures1.46cm. in longitudinal Peak systolic flow velocities within the mid aorta axis. measure 137.1 cm/sec. Mid aorta measures1.42 x 1.49cm. in cross- Peak systolic flow velocities within the distal sectional axis. aorta measure 152.6 cm/sec. Mid aorta measures1.40cm. in longitudinal axis. Distal aorta measures1.52 x 1.47cm. in cross- sectional axis. Distal aorta measures1.52cm. in longitudinal axis. Left Iliac Artery Left iliac artery measures 0.84 x 0.84 cm. in the cross-sectional axis. Left iliac artery measures 0.86 cm. in the longitudinal axis. Peak systolic velocity in the left iliac artery measures 113.8 cm/sec. Right Iliac Artery Right iliac artery measures 0.78 x 0.74 cm. in the cross-sectional axis. Right iliac artery measures 0.76 cm. in the longitudinal axis. Peak systolic velocity in the right iliac artery measures 134.5 cm/sec. VL/Abd Aortic/IVC Duplex scan Interpretation Summary Aorta patent, normal caliber Bilateral iliac arteries patent, normal caliber Ordering Physician: Rick Bermudez Referring Physician: Albania Shen Performed By: Stalin Segura, RVT
== END | disposition home or self-care (01) ==
PROVIDERS: PCP Internal Medicine; Referring Provider Internal Medicine Cardiovascular Disease; Visit Provider Internal Medicine Cardiovascular Disease
DX: I10 Essential (primary) hypertension (principal)
CPT/HCPCS: 93978

== ENCOUNTER → 2024-08-06 | Outpatient (CLI) | payer MEDICARE, SELFPAY ==
[2024-08-06 16:24] LABS: ALB/GLOB Ratio 1.2 RATIO (0.9-2.4); AST(SGOT) 18 U/L (<=31); Alanine Aminotransfer ALT/SGPT 12 U/L (<=34); Albumin, Serum 4.1 g/dL (3.4-4.8); Alkaline Phosphatase 135 U/L (35-104); Anion Gap 11 (5-15); BUN 17 mg/dL (4-19); BUN/Creat Ratio 16.5 RATIO (10-20); Calcium,Total 9.6 mg/dL (7.6-11.0); Carbon Dioxide 23.7 mmol/L (21.0-32.0); Chloride 107 mmol/L (98-108); Creatinine, Serum 1.02 mg/dL (0.70-1.20); EST Glomerular Filtration Rate 53 (>60); Globulin 3.4 g/dL (2.2-4.2); Glucose 123 mg/dL (70-99); Potassium 3.7 mmol/L (3.3-5.1); Protein, Total 7.5 g/dL (5.9-8.4); Sodium Level 142 mmol/L (133-145); Total Bilirubin 0.53 mg/dL (0.00-1.30)
== END | disposition home or self-care (01) ==
LOC: LAB 14:26
PROVIDERS: PCP Internal Medicine; Referring Provider Internal Medicine Cardiovascular Disease; Visit Provider Internal Medicine Cardiovascular Disease
DX: R60.9 Edema, unspecified (principal); I48.0 Paroxysmal atrial fibrillation; I10 Essential (primary) hypertension
CPT/HCPCS: 36415; 80053; 84443

== ENCOUNTER → 2024-12-28 | Outpatient (CLI) | payer MEDICARE, SELFPAY ==
[2024-12-28 12:51] LABS: Anion Gap 13 (5-15); BUN 25 mg/dL (4-19); BUN/Creat Ratio 22.3 RATIO (10-20); Calcium,Total 9.5 mg/dL (7.6-11.0); Carbon Dioxide 22.3 mmol/L (21.0-32.0); Chloride 106 mmol/L (98-108); Glucose 152 mg/dL (70-99); Potassium 3.9 mmol/L (3.3-5.1)
== END | disposition home or self-care (01) ==
LOC: LAB 11:22
PROVIDERS: PCP Internal Medicine; Referring Provider Internal Medicine Cardiovascular Disease; Visit Provider Internal Medicine Cardiovascular Disease
DX: I10 Essential (primary) hypertension (principal)
CPT/HCPCS: 36415; 80048

== ENCOUNTER 2025-01-10 05:10 | Emergency (ER) | payer MEDICARE, SELFPAY ==
[2025-01-10 05:12] VITALS: BP 209/94; PULSE 89; RESP 16; TEMP 35.9; O2SAT 98; BMI 32.2
[2025-01-10] MEDS: Lorazepam 2 MG/ML WCH Syringe 1 MG IM (05:58)
--- OUTSIDE RECORDS SUMMARY | 2025-01-10 05:58 | XMS RPT_ITS | CCD ---
Author Organization [facility] Care Team Providers Care Extension Course Coordinator Name Role Phone MICHEL, FELICE E Unavailable Unavailable MICHEL, FELICE E Unavailable Unavailable MICHEL, FELICE Unavailable Unavailable MICHEL, FELICE Unavailable Unavailable MICHEL, FELICE Unavailable Unavailable FELICE PEARSON Unavailable Unavailable Jadyn Bowden MD Primary Care Provider Jadyn Bowden MD Primary Care Provider Jadyn Bowden MD Primary Care Provider Jadyn Bowden MD Primary Care Provider Whitney Quarles MD Primary Care Provider Hurt TIMING INSPECTOR.COMPUTER LANGUAGE CODER, Jessie Unavailable Umair TIMING INSPECTOR.IOS PROGRAMMER, Corine Unavailable Umair TIMING INSPECTOR.IOS PROGRAMMER, Corine Unavailable Dr. Jadyn Bowden MD Primary Care Provider Dr. Jadyn Bowden MD Referring Provider Dr. Rick Bermduez MD Attending Provider Dr. Rick Bermudez MD Referring Provider Umair TIMING INSPECTOR.IOS PROGRAMMER, Corine Unavailable Hurt TIMING INSPECTOR.COMPUTER LANGUAGE CODER, Jessie Unavailable Hurt TIMING INSPECTOR.COMPUTER LANGUAGE CODER, Jessie Unavailable JADYN BOWDEN Referring Unavailable JADYN BOWDEN Primary Care Unavailable AYANNA PATEL Attending Unavailable JADYN BOWDEN Primary Care Unavailable AYANNA PATEL Referring Unavailable TALAMPAS, JADYN D Primary Care Unavailable HURT, JESSIE Attending Unavailable TALAMPAS, JADYN D Primary Care Unavailable HURT, JESSIE Referring Unavailable TALAMPAS, JADYN D Primary Care Unavailable TALAMPAS, JADYN D Referring Unavailable TALAMPAS, JADYN D Primary Care Unavailable HURT, JESSIE Attending Unavailable TALAMPAS, JADYN D Primary Care Unavailable HURT, JESSIE Attending Unavailable TALAMPAS, JADYN D Primary Care Unavailable HURT, JESSEI Attending Unavailable TALAMPAS, JADYN D Primary Care Unavailable TALAMPAS, JADYN D Attending Unavailable TALAMPAS, JADYN D Referring Unavailable TALAMPAS, JADYN D Primary Care Unavailable TALAMPAS, JADYN D Referring Unavailable TALAMPAS, JADYN D Primary Care Unavailable TALAMPAS, JADYN D Referring Unavailable TALAMPAS, JADYN D Primary Care Unavailable Talampas , Dr. Jadyn Rodrigues Primary Care Provider Dr. Jadyn Bowden MD Referring Provider Debbi Ramírez Attending Provider Aidan MCCLAIN, Dr. Cabrera Attending Provider Dr. Rick Bermudez MD Referring Provider Deena Choudhury Other Provider Debbi Villanueva NP Attending Unavailable Talampas, Jadyn D Referring Unavailable Talampas, Jadyn D Primary Care Unavailable Deena hCoudhury Consulting Unavail able Talampas, Jadyn D Primary Care Unavailable Aidan, Rick Referring Unavailable Aidan, Rick Attending Unavailable Aidan, Rick Attending Unavailable Talampas, Jadyn D Primary Care Unavailable Aidan, Rick Referring Unavailable Talampas, Jadyn D Primary Care Unavailable Aidan, Rick Referring Unavailable Aidan, Rick Attending Unavailable Talampas, Jadyn D Primary Care Unavailable Aidan, Rick Referring Unavailable Aidan, Rick Attending Unavailable Talampas, Jadyn D Primary Care Unavailable Aidan, Rick Referring Unavailable Aidan, Rick Attending Unavailable Aidan, Rick Attending Unavailable Talampas, Jadyn D Primary Care Unavailable Talampas, Jadyn D Referring Unavailable Talampas, Jadyn D Referring Unavailable Talampas, Jadyn D Primary Care Unavailable Aidan, Rick Attending Unavailable Rich WRIGHT, Debbi Attending Unavailable Talampas, Jadyn D Primary Care Unavailable Talampas, Jadyn D Primary Care Unavailable Lonnie Melendez Attending Unavailable Aidan, Rick Referring Unavailable Rich WRIGHT, Debbi Attending Unavailable Talampas, Jadyn D Primary Care Unavailable Talampas, Jadyn D Primary Care Unavailable Aidan, Rick Referring Unavailable Aidan, Rick Consulting Unavailable Aidan, Rick Attending Unavailable Talampas, Jadyn D Referring Unavailable Talampas, Jadyn D Primary Care Unavailable Aidan, Rick Attending Unavailable Allergies Allergy Classification Reported Allergen(s) Allergy Type Date of Onset Reaction(s) Facility (20 sources) codeine; Translations: [CODEINE] Drug Allergy 09-12-2007 Vomiting [facility] (20 sources) lisinopril; Translations: [LISINOPRIL] Drug Allergy 11-25-2010 Cough [facility] Medications Current Medications Medication Drug Class(es) Dates Sig (Normalized) Sig (Original) [id number] 200 actuat albuterol 0.09 mg/actuat metered dose inhaler (4 sources) beta2-Adrenergic Agonist Start: 09-13-2024 take 1-2 puff(s) by inhalation four times daily as needed for cough albuterol HFA (PROVENTIL HFA) 90 mcg/actuation inhaler Indications: Sinobronchitis Inhale 1-2 puffs as instructed four times a day as needed for wheezing/shortness of breath (cough). 1 each 1 09/13/2024 Active amoxicillin 500 mg oral capsule (3 sources) Penicillin-class Antibacterial Start: 06-03-2022 End: 06-10-2022 take 2 capsules by mouth three times daily amoxicillin (POLYMOX, AMOXIL) 500 mg capsule Indications: Acute cough , Shortness of breath Take 2 capsules by mouth three times daily for 7 days. 42 capsule 0 06/03/2022 06/10/2022 Active Comment on above: Take 2 capsules by m outh three times daily for 7 days. atorvastatin 40 mg oral tablet (20 sources) HMG-CoA Reductase Inhibitor Start: 08-06-2024 End: 09-04-2024 take 1 tablet by mouth once daily Atorvastatin 40 mg tablet Active 40 mg PO daily 90 September 04, 2024 10:40am Start: 11-14-2018 End: 08-06-2024 take 1 tablet by mouth at bedtime Atorvastatin 80 mg tablet Discontinued 80 mg PO AT BEDTIME 90 3 December 13, 2023 8:54am August 06, 2024 3:17pm Comment on above: [facility] azith[facility] 250 mg oral tablet (3 sources) Macrolide Antimicrobial Start: 06-03-19 End: 06-08-19 azithromycin (ZITHROMAX Z-ANJUM) 250 mg tablet Take 2 tablets day one, then, 1 tablet daily until gone. 6 tablet 0 06/03/2022 06/08/2022 Active Comment on above: Take 2 tablets day o ne, then, 1 tablet daily until gone. benzonatate 100 mg oral capsule (11 sources) Non-narcotic Antitussive Start: 09-14-19 take 1 capsule by mouth three times daily as needed benzonatate (TESSALON PERLE) 100 mg capsule Indications: Sinobronchitis Take 1-2 capsules by mouth three times a day as needed for cough. 60 capsule 1 09/13/2024 Active Start: 05-26-2022 End: 06-13-2022 take 1 capsule by mouth three times daily as needed benzonatate (TESSALON PERLE) 100 mg capsule Indications: Viral URI with cough , Acute cough , Shortness of breath Take 1-2 capsules by mouth three times daily as needed for up to 10 days. 60 capsule 1 06/03/2022 06/13/2022 Active Comment on above: Take 1 capsule by mo ut three times daily as needed for up to 10 days. Take 1-2 capsules by mouth three times daily as needed for up to 10 days. Take 1 capsule by mo ut three times daily as needed. cephalexin 500 mg oral capsule (5 sources) Cephalosporin Antibacterial Start: take 1 capsule by mouth three times daily at mealtime cephALEXin (KEFLEX) 500 mg capsule Indications: UTI symptoms , Recurrent UTI Take 1 capsule by mouth three times a day. Take with food 21 capsule 11/08/2024 Active Start: 06-29-2024 End: 07-09-2024 take 1 capsule by mouth four times daily cephALEXin (KEFLEX) 500 mg capsule Take 1 capsule by mouth four times daily for 10 days. 40 capsule 06/29/2024 07/09/2024 Active Start: 06-04-2024 End: 06-11-2024 take 1 capsule by mouth twice daily cephALEXin (KEFLEX) 250 mg capsule Take 1 capsule by mouth two times a day for 7 days. 14 capsule 06/04/2024 06/11/2024 Active cetirizine hydrochloride 10 mg oral tablet (4 sources) Histamine-1 Receptor Antagonist Start: 09-13-2024 End: 12-12-2024 take 1 tablet by mouth once daily cetirizine (ZYRTEC) 10 mg tablet Indications: Sinobronchitis Take 1 tablet by mouth once daily. for runny nose 30 tablet 2 09/13/2024 12/12/2024 Active cholecalciferol 0.025 mg oral tablet (20 sources) Vitamin D Start: 02-16-2024 take 1 tablet by mouth once daily as needed Cholecalciferol (Vitamin D3) 25 mcg (1,000 unit) tablet Active 5000 U PO DAILY as needed for SUPPLEMENT February 16, 2024 10:49am Start: 05-26-2021 End: 12-14-2023 take 1 capsule by mouth once daily Cholecalciferol, Vitamin D3, 25 mcg (1,000 unit) cap Take 1 capsule by mouth once daily. 05/26/2021 12/14/2023 Discontinued Start: 09-26-2019 End: 02-16-2024 take 5 tablets by mouth once daily Cholecalciferol (Vitamin D3) 1,000 UNIT tablet Discontinued 5000 U PO DAILY September 26, 2019 12:00am February 16, 2024 10:50am SUPPLEMENT Start: 09-26-2019 take 5000 [IU] by [facility] once daily Cholecalciferol (Vitamin D3) Active 5000 UNIT PO DAILY September 26, 2019 12:00am Comment on above: Take 1 capsule by mo ut once daily. Compression Knee Highs (20 sources) Start: 09-06-2016 Compression Knee Highs Indications: Localized swelling of both lower legs KNEE HIGH COMPRESSION STOCKINGS 30-40 MM. DX: EDEMA 1 Package 09/06/2016 Active Start: 09-06-2016 Compression Kn ee Highs Indications: Localized swelling of both lower legs KNEE HIGH COMPRESSION STOCKINGS 30-40 MM. DX: EDEMA 1 Package 0 09/06/2016 Active Comment on above: KNEE HIGH COMPRESSIO N STOCKINGS 30-40 MM. DX: EDEMA furosemide 40 mg oral tablet (20 sources) Loop Diuretic Start: 08-06-2024 End: 09-04-2024 take 1 tablet by mouth once daily Furosemide 40 mg tablet Active 40 mg PO daily 90 3 September 04, 2024 10:40am Start: 10-30-2020 End: 08-06-2024 take 1 tablet by mouth once daily Furosemide 20 mg tablet Discontinued 20 mg PO DAILY 90 December 13, 2023 8:54am August 06, 2024 3:18pm Comment on above: Take 1 tablet by michelle once daily. lactobacillus acidophilus [id number] unt oral capsule (20 sources) Lactobacillus acidophilus (PROBIOTIC) 10 billion cell cap Take by mouth. Active Comment on above: Take by mouth. mometasone furoate 1 mg/ml topical cream (9 sources) Corticosteroid Start: apply 180 g into the eye(s) once daily mometasone (ELOCON) 0.1 % cream Apply to affected area once daily. Apply to active or flaring lichen planus area daily until clear . AVOID eyes and eyelids. May us up to 14 days per rash flare up 180 g 6 06/19/2024 Active sulfamethoxazole 800 mg / trimethoprim 160 mg oral tablet (3 sources) Dihydrofolate Reductase Inhibitor Antibacterial, Sulfonamide Antimicrobial Start: End: take 1 tablet by mouth twice daily at mealtime sulfamethoxazole-tr imethoprim (BACTRIM DS) 800-160 mg per tablet Take 1 tablet by mouth two times a day for 3 days. Take with food 6 tablet 09/10/2024 09/13/2024 Active Start: 09-23-2023 End: 09-26-2023 take 1 tablet by mouth twice daily at mealtime sulfamethoxazole-trimethoprim (BACTRIM D S) 800-160 mg per tablet Indications: UTI symptoms Take 1 tablet by mouth two times a day for 3 days. Take with food. - antibiotic 6 tablet 0 09/23/2023 09/26/2023 Active sulfaSALAzine 500 mg oral tablet (20 sources) Aminosalicylate Start: 09-26-2019 take 1 tablet by mouth every six hours as needed Sulfasalazine 500 MG tablet Active 500 mg PO EVERY 6 HOURS NEEDED as needed for SKIN September 26, 2019 12:00am Start: 03-08-2019 sulfaSALAzine (AZULFIDINE) 500 mg tablet TAKE ONE TABLET BY MOUTH 3 TO 4 TIMES DAILY FOR LICHEN PLANUS, THEN TAPER BACK ON DOSE ABLE WHEN CONTROLLED DIRECTED 120 tablet 5 03/08/2019 Active Start: 02-08-2019 End: 06-12-2019 take 1 tablet by mouth every six hours as needed Sulfasalazine 500 mg tablet Discontinued 0.5 g PO EVERY 6 HOURS as needed February 08, 2019 12:00am June 12, 2019 4:59pm Start: 02-08-2019 End: 06-12-2019 take 0.5 g by mouth every six hours Sulfasalazine Discontinued 0.5 GM PO EVERY 6 HOURS February 08, 2019 12:00am June 12, 2019 4:59pm Comment on above: TAKE ONE TABLET BY M OUTH 3 TO 4 TIMES DAILY FOR LICHEN PLANUS, THEN TAPER BACK ON DOSE ABLE WHEN CONTROLLED DIRECTED VIT C/E/ZN/COPPR/LUTEIN/ZEAXAN (PRESERVISION AREDS 2 ORAL) (20 sources) VIT C/E/ZN/COPPR/LUTEIN/ZEAXA N (PRESERVISION AREDS 2 ORAL) Take by mouth twice daily. Active VIT C/E/ZN/COPPR /LUTEIN/ZEAXAN (PRESERVISION AREDS 2 ORAL) Take by mouth twice daily. 0 Active Comment on above: Take by mouth twice daily. vitamin b12 1 mg oral tablet (4 sources) Vitamin B12 Start: 09-26-2019 take 1 tablet by mouth once daily Cyanocobalamin (Vitamin B-12) 1,000 MCG tablet Active 1000 ug PO DAILY September 26, 2019 12:00am SUPPLEMENT Vitamins A,C,W-Vbjz-Khquds (Preservision Areds) 4,296 mcg-226 mg-90 mg capsule (3 sources) Start: 02-16-2024 Vitamins A,C,H-Myik-Oyowoj (Preservision Areds) 4,296 mcg-226 mg-90 mg capsule Active 1 NMA PO daily February 16, 2024 12:00am Completed/Discontinued Medications Medication Drug Class(es) Dates Sig (Normalized) Sig (Original) acetaminophen 325 mg / HYDROcodone bitartrate 5 mg oral tablet (4 sources) Opioid Agonist Start: 10-24-2019 End: 10-26-2019 Hydrocodone-Acetamino phen 1 TABLET tablet Discontinued 1 {tbl} PO EVERY 6 HOURS NEEDED as needed for Pain 5 2 0 October 24, 2019 October 25, 2019 12:00am October 26, 2019 12:02am Postoperative pain Other acute postprocedural pain Start: 10-24-2019 End: 10-26-2019 take 1 tablet by mouth every six hours as needed Hydrocodone-Acetaminophen Discontinued 1 TABLET PO EVERY 6 HOURS NEEDED 5 2 October 24, 2019 October 26, 2019 12:02am amLODIPine 5 mg oral tablet (20 sources) Dihydropyridine Calcium Channel Mia Start: 07-06-2019 End: 09-13-2024 take 1 tablet by mouth at bedtime Amlodipine 5 mg tablet Discontinued 5 mg PO AT BEDTIME 90 3 August 08, 2024 8:52am September 13, 2024 8:40am Start: 06-12-2019 End: 06-12-2019 take 5 mg by mouth once daily Amlodipine 10 mg tablet Discontinued 5 mg PO DAILY June 12, 2019 4:57pm June 12, 2019 5:25pm Start: 06-12-2019 End: 06-12-2019 take 5 mg by mouth once daily Amlodipine Discontinued 5 MG PO DAILY June 12, 2019 4:57pm June 12, 2019 5:25pm Start: 04-13-2019 End: 11-11-2020 take 1 tablet by mouth once daily Amlodipine 10 mg tablet Discontinued 10 mg PO DAILY 90 3 January 30, 2020 3:32pm November 11, 2020 1:04pm Start: 02-08-2019 End: 04-13-2019 take 1 tablet by mouth once daily Amlodipine 5 mg tablet Discontinued 5 mg PO DAILY 30 3 February 08, 2019 12:00am April 13, 2019 11:20am Comment on above: Take 1 tablet by michelle once daily. (Dr. Esparza) apixaban 5 mg oral tablet (20 sources) Factor Xa Inhibitor Start: 10-11-2019 End: 08-06-2024 take 1 tablet by mouth twice daily Apixaban 5 mg tablet Discontinued 5 mg PO TWICE A DAY 60 11 December 26, 2023 8:14am August 06, 2024 1:38pm Start: 09-28-2019 End: 10-11-2019 take 2 tablets by mouth twice daily, then take 1 tablet by mouth once daily Apixaban 5 MG tablet Discontinued 10 mg PO TWICE A DAY 72 September 28, 2019 12:00am October 11, 2019 3:46pm Take Eliquis 10 mg twice daily for 6 days, then 5 mg daily thereafter. Start: 09-28-2019 End: 10-11-2019 take 10 mg by mouth twice daily, then take 5 mg by mouth once daily Apixaban Discontinued 10 MG PO TWICE A DAY September 28, 2019 12:00October 11, 2019 3:46pm Take Eliquis 10 mg twice daily for 6 days, then 5 mg daily thereafter. Comment on above: Take [address] [facility] twice daily. ascorbic acid 226 mg / cuprous oxide 0.8 mg / dl-alpha tocopheryl acetate 200 unt / lutein 5 mg / zinc oxide 34.8 mg oral capsule (7 sources) Vitamin C Start: 11-14-2018 End: 02-16-2024 Vit E-S-Skwhco-Zinc-Lutein 226-90-0.8-5 mg capsule Discontinued 1 NMA PO TWICE A DAY December 24, 2021 10:02am February 16, 2024 10:50am eye health Start: 11-14-2018 take [address] [facility] twice daily Vit M-S-Iivlys-Zinc-Lutein Active 1 CAP PO TWICE A DAY November 14, 2018 12:00am aspirin 81 mg delayed release oral tablet (16 sources) Platelet Aggregation Inhibitor, Nonsteroidal Anti-inflammatory Drug Start: 11-14-2018 End: 12-13-2019 take 1 tablet by mouth once daily Aspirin 81 mg tablet,delayed release (DR/EC) Discontinued 81 mg PO DAILY@0800 1 0 November 22, 2019 9:34am December 13, 2019 10:13am Hold for 5 days dicyclomine hydrochloride 10 mg oral capsule (15 sources) Anticholinergic Start: 12-13-2019 End: 06-20-2023 take 1 capsule by mouth twice daily Dicyclomine 10 mg capsule Discontinued 10 mg PO TWICE A DAY December 13, 2019 12:00am August 07, 2020 11:08am Comment on above: Take [address] [facility] twice daily. diphenhydrAMINE hydrochloride 25 mg oral tablet (11 sources) Histamine-1 Receptor Antagonist Start: 05-26-2021 End: 01-29-2024 take 1 tablet by mouth once daily at bedtime diphenhydrAMINE (BENADRYL) 25 mg tablet Take 1 tablet by mouth daily at bedtime. (purple sleep aid--OTC) 05/26/2021 06/20/2023 Discontinued End: 05-26-2021 take 1 tablet by mouth every six hours as needed diphenhydrAMINE (BENADRYL) 25 mg tablet Take 25 mg by mouth every 6 hours as needed. 05/26/2021 Discontinued Comment on above: Take 1 tablet by michelle th daily at bedtime. (purple sleep aid--OTC) hydrocortisone valerate 2 mg/ml topical cream (20 sources) Corticosteroid Start: 09-23-2023 End: 06-19-2024 hydrocortisone valerate (WESTCORT) 0.2 % cream Indications: Lichen planus Apply to active or flaring lichen planus area daily until clear . AVOID eyes and eyelids. September us up to 14 days per rash flare up 60 g 6 09/23/2023 06/19/2024 Discontinued Start: 10-30-2020 End: 09-23-2023 hydrocortisone valerate (AUDREY TCORT) 0.2 % cream Indications: Lichen planus Apply to active or flaring lichen planus area until clear . AVOID eyes and eyelids. 60 g 6 10/30/2020 12/17/2022 Discontinued Start: 01-31-2019 End: 06-12-2019 Hydrocortisone Valerate 0.2 % cream Discontinued 1 NMA TOPICAL TWICE A DAY as needed January 31, 2019 12:00am June 12, 2019 4:59pm Comment on above: Apply to active or f laring lichen planus area until clear . AVOID eyes and eyelids. Apply to active or f laring lichen planus area until clear . AVOID eyes and eyelids. September us up to 14 days per rash flare up hydrOXYzine hydrochloride 10 mg oral tablet (5 sources) Antihistamine Start: 10-31-19 End: 05-26-19 22 take 1 tablet by mouth every four hours as needed Hydroxyzine Hcl 10 mg tablet Discontinued 10 mg PO Q4H as needed for itching January 31, 2019 12:00am June 12, 2019 4:59pm Rukrg-Jdplz-0-Dha-Epa -Lipids (1 source) Start: 11-15-19 19 End: 09-11-20 19 take 1 capsule by mouth twice daily Xxqyk-Cwzrv-3-Dha-Ep a-Lipids Discontinued 1 CAP PO TWICE A DAY November 14, 2018 12:00am January 31, 2019 9:53am Qvldr-Dxguk-6-Dha-Epa -Lipids 1 EACH capsule (3 sources) Start: 11-15-19 End: 02-01-20 take 1 capsule by mouth twice daily Bmyrm-Yyafv-5-Dha-Ep a-Lipids 1 EACH capsule Discontinued 1 NMA PO TWICE A DAY November 14, 2018 12:00am January 31, 2019 9:53am supplement Start: 11-14-2018 End: 01-31-2019 take 1 capsule by mouth twice daily Gynla-Tcqzv-2-Jut-Tdm-Fzvqkg 1 EACH caps ule Discontinued 1 NMA PO TWICE A DAY November 14, 2018 12:00am January 31, 2019 9:53am ammonium lactate 120 mg/ml topical cream (2 sources) Start: 07-13-2016 End: 10-13-2021 ammonium lactate (LAC-HYDRIN) 12 % cream Indications: Xerosis cutis Apply to affected areas of feet daily after bathing 225 g 2 07/13/2016 10/13/2021 Discontinued Comment on above: Apply to affected ar eas of feet daily after bathing Lactobacillus Combination No.9 (Adult 50 Plus Probiotic) 4 billion cell capsule (4 sources) Start: 01-30-2020 End: 12-24-2021 take 4 capsules by mouth once daily Lactobacillus Combination No.9 (Adult 50 Plus Probiotic) 4 billion cell capsule Discontinued 4000 NMA PO DAILY January 30, 2020 12:00am December 24, 2021 10:02am administer with a meal Start: 01-30-2020 take 4 capsules by m outh once daily Lactobacillus Combination No.9 (Adult 50 Plus Probiotic) 4 billion cell capsule Active 4000 MMU CELLS PO DAILY January 30, 2020 12:00am administer with a meal losartan potassium 100 mg oral tablet (20 sources) Angiotensin 2 Receptor Mia Start: 08-06-2024 End: 09-04-2024 take 1 tablet by mouth once daily in the morning Losartan 100 mg tablet Discontinued 100 mg PO EVERY MORNING 30 0 August 08, 2024 8:53am September 04, 2024 10:41am Start: 10-05-2019 End: 05-26-2021 take 0.5 tablet by mouth once daily losartan (COZAAR) 50 mg tablet Indications: Essential hypertension, benign Take 0.5 tablets by mouth once daily. 10/05/2019 05/26/2021 Discontinued Start: 06-05-2019 End: 08-06-2024 take 1 tablet by mouth once daily Losartan 25 mg tablet Discontinued 25 mg PO DAILY 90 3 November 11, 2023 8:12am August 06, 2024 3:18pm Start: 11-14-2018 End: 01-31-2019 take 1 tablet by mouth once daily Losartan 100 MG tablet Discontinued 100 mg PO DAILY November 14, 2018 12:00am January 31, 2019 9:53am Comment on above: Take 1 tablet by michelle th once daily. (Dr. Esparza) magnesium gluconate 500 mg oral tablet (5 sources) Start: 2018 End: 2021 take 1 tablet by mouth once daily Magnesium Gluconate 27 MG tablet Discontinued 27 mg PO DAILY November 14, 2018 12:00am August 07, 2020 11:08am methylPREDNISolone (4 sources) Corticosteroid Start: 2022 methylPREDNISolone (MEDROL DOSE-PACK) 4 mg Dose-Pack Indications: Acute cough , Shortness of breath Take medications as directed on packaging. Take with food. 21 tablet 0 06/03/2022 Active Comment on above: Take medications as directed on packaging. Take with food. metoprolol tartrate 100 mg oral tablet (20 sources) beta-Adrenergic Mia Start: 2018 End: 2024 take 1 tablet by mouth twice daily Metoprolol Tartrate 100 mg tablet Discontinued 100 mg PO TWICE A DAY 180 3 January 11, 2024 12:37pm August 08, 2024 8:45am heart Start: 11-14-2018 End: 01-31-2019 Metoprolol Tartrate 100 MG t ablet Discontinued 50 mg PO TWICE A DAY November 14, 2018 12:00am January 31, 2019 9:53am heart Start: 11-14-2018 End: 01-31-2019 take 1 tablet by mouth twice daily Metoprolol Tartrate 75 MG tablet Discontinued 75 mg PO TWICE A DAY 30 0 November 14, 2018 12:00am January 31, 2019 9:49am Start: 11-14-2018 End: 01-31-2019 take 50 mg by mouth twice daily Metoprolol Tartrate Di scontinued 50 MG PO TWICE A DAY November 14, 2018 12:00am January 31, 2019 9:53am Comment on above: Take 1 tablet by michelle th twice daily. potassium chloride 8 meq extended release oral capsule (20 sources) Start: 08-04-2022 End: 11-07-2024 take 1 capsule by mouth once daily Potassium Chloride 8 mEq capsule, extended release Discontinued 8 meq PO DAILY 90 3 November 11, 2023 8:12am November 07, 2024 12:48pm Start: 11-19-2020 End: 08-04-2022 take 2 capsules by mouth once daily Potassium Chloride 8 mEq capsule, extended release Discontinued 16 meq PO DAILY 60 April 15, 2021 9:40am December 24, 2021 10:31am Start: 11-19-2020 End: 04-15-2021 take 16 mEq by mouth once daily Potassium Chloride Act jean 16 MEQ PO DAILY April 15, 2021 9:40am Start: 10-30-2020 End: 05-26-2021 take 1 capsule by mouth once daily Potassium Chloride 8 mEq capsule, extended release Discontinued 8 meq PO DAILY 30 November 11, 2020 12:00am November 19, 2020 4:30pm Comment on above: Take 2 capsules by [facility] once daily. rOPINIRole 2 mg oral tablet (1 source) Nonergot Dopamine Agonist Start: 10-05-19 End: 05-26-19 take 0.5 tablet by mouth once daily at bedtime rOPINIRole (REQUIP) 2 mg tablet Indications: Restless legs syndrome (RLS) Take 0.5 tablets by mouth daily at bedtime. 30 tablet 1 10/05/2019 05/26/2021 Discontinued traZODone hydrochloride 50 mg oral tablet (20 sources) Serotonin Reuptake Inhibitor Start: 05-26-19 End: 02-16-20 take 1 tablet by mouth at bedtime as needed Trazodone 50 mg tablet Discontinued 50 mg PO AT BEDTIME as needed February 04, 2023 10:45am February 16, 2024 10:50am 1/2 TAB Comment on above: Take 0.5-1 tablets b y mouth at bedtime as needed (sedation). Take 1 tablet by michelle at bedtime as needed (insomnia). vancomycin 125 mg oral capsule (9 sources) Glycopeptide Antibacterial Start: 01-30-20 End: 05-26-19 take 1 capsule by mouth once Vancomycin 125 mg capsule Discontinued 125 mg PO ONCE January 30, 2020 12:00am August 07, 2020 11:08am Start: 11-22-2019 End: 12-13-2019 take 1 capsule by mouth every six hours Vancomycin (Vancocin) 125 MG capsule Discontinued 125 mg PO EVERY 6 HOURS 56 November 22, 2019 12:00am December 13, 2019 10:12am Problems Active Problems Problem Classification Problem Date Documented Da te Episodic/Chronic Abdominal pain (1 source) Lower abdominal pain; Translations: [Lower abdominal pain, unspecified] 09-23-2023 Episodic 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 (20 sources) Thrombosis of aorta; 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] Onset: 0 Resolved: 3 10-05-2019 Chronic Cardiac dysrhythmias (20 sources) Paroxysmal atrial fibrillation; Translations: [Paroxysmal atrial fibrillation] Onset: 7 06-22-2018 Chronic Chronic obstructive pulmonary disease and bronchiectasis (1 source) Bronchitis, not specified as acute or chronic; Translations: [Sinobronchitis] Onset: 5 Episodic Coronary atherosclerosis and other heart disease (13 sources) Atherosclerotic heart disease of [place] coronary artery without angina pectoris; Translations: [Coronary atherosclerosis] Onset: 7 02-16-2024 Chronic Diabetes mellitus without complication (20 sources) Type 2 diabetes mellitus without complication; Translations: [Type 2 diabetes mellitus without complications] Onset: 1 10-30-2020 Chronic Disorders of lipid metabolism (20 sources) Mixed hyperlipidemia; Translations: [Mixed hyperlipidemia] Onset: 8 08-03-2007 Chronic Essential hypertension (20 sources) Benign essential hypertension; Translations: [Essential (primary) hypertension] Onset: 7 11-22-2018 Chronic Gastrointestinal hemorrhage (6 sources) Rectal hemorrhage; Translations: [Hemorrhage of anus and rectum] 10-16-2019 Episodic Genitourinary symptoms and ill-defined conditions (20 sources) Proteinuria; Translations: [Proteinuria, unspecified] Onset: 1 06-08-2010 Episodic Heart valve disorders (7 sources) Aortic valve stenosis; Translations: [Nonrheumatic aortic (valve) stenosis] Onset: 5 08-06-2024 Chronic Comment on above: Mild aortic valve st enosis on echo. Hemorrhoids (4 sources) Bleeding internal hemorrhoids; Translations: [Other hemorrhoids] 10-22-2019 Episodic Miscellaneous mental health disorders (1 source) Acute insomnia; Translations: [Adjustment insomnia] Episodic Noninfectious gastroenteritis (4 sources) Colitis; Translations: [Noninfective gastroenteritis and colitis, unspecified] 11-20-2019 Episodic Nutritional deficiencies (3 sources) Vitamin D deficiency; Translations: [Vitamin D deficiency, unspecified] Onset: 5 01-24-2024 Chronic Other circulatory disease (4 sources) H/O: heart disorder; Translations: [Personal history of other diseases of the circulatory system] 11-27-2021 Episodic Other circulatory disease (1 source) Personal history of other diseases of the circulatory system; Translations: [Personal history of other diseases of circulatory system] Episodic Other congenital anomalies (2 sources) Abnormal prominence of clavicle; 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), 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 Other diseases of kidney and ureters (20 sources) Renal infarction; 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] Onset: 0 Resolved: 3 10-05-2019 Episodic Other gastrointestinal disorders (4 sources) History of lower gastrointestinal bleed; Translations: [Personal history of other diseases of the digestive system] 09-26-2019 Episodic Other hereditary and degenerative nervous system conditions (20 sources) Restless legs; Translations: [Restless legs syndrome] Onset: 7 01-11-2007 Chronic Other injuries and conditions due to external causes (1 source) Injury of left foot; Translations: [Unspecified injury of left foot, initial encounter] 10-30-2020 Episodic Other lower respiratory disease (6 sources) Dyspnea; Translations: [Shortness of breath] Episodic Other lower respiratory disease (2 sources) Cough; Translations: [Acute cough] Episodic Other lower respiratory disease (4 sources) Dyspnea on exertion; Translations: [Other forms of dyspnea] 12-15-2023 Episodic Other lower respiratory disease (1 source) Cough; Translations: [Acute cough] 06-03-2022 Episodic Other screening for suspected conditions (not mental disorders or infectious disease) (5 sources) Imaging of thorax abnormal; Translations: [Abnormal findings on diagnostic imaging of other specified body structures] Onset: 4 12-15-2023 Chronic Other skin disorders (1 source) Lesion of skin of face; Translations: [Disorder of the skin and subcutaneous tissue, unspecified] 12-14-2023 Episodic Other skin disorders (1 source) Skin lesion; Translations: [Disorder of the skin and subcutaneous tissue, unspecified] 12-14-2023 Episodic Other upper respiratory disease (4 sources) Bleeding from nose; Translations: [Epistaxis] 12-28-2024 Episodic Other upper respiratory infections (1 source) Chronic sinusitis, unspecified; Translations: [Sinobronchitis] Onset: 5 Chronic Other upper respiratory infections (3 sources) Viral upper respiratory tract infection; Translations: [Acute upper respiratory infection, unspecified] Episodic Prolapse of female genital organs (20 sources) Midline cystocele; Translations: [Cystocele, midline] Onset: 8 07-28-2007 Chronic Pulmonary heart disease (7 sources) Pulmonary hypertension; Translations: [Pulmonary hypertension, unspecified] Onset: 5 08-06-2024 Chronic Residual codes; unclassified (4 sources) Edema; Translations: [Edema, unspecified] 11-11-2020 Episodic Residual codes; unclassified (1 source) Does not perform personal care activity; Translations: [Other specified health status] 11-08-2024 Episodic Residual codes; unclassified (1 source) Other specified health status; Translations: [Self-care deficit] Onset: 5 Episodic Retinal detachments; defects; vascular occlusion; and retinopathy (2 sources) Degenerative disorder of macula ; Translations: [Unspecified macular degeneration] Onset: 5 11-08-2024 Chronic Unclassified (1 source) Unknown / UNK(Unknown) Onset: 8 Unclassified (4 sources) Age more than 65 years; Translations: [Over 65 years old] 03-24-2021 Urinary tract infections (3 sources) Recurrent urinary tract infection; Translations: [Urinary tract infection, site not specified] Onset: 11-08-2024 Episodic Viral infection (4 sources) Disease caused by 2019-nCoV; Translations: [COVID-19] 03-24-2021 Episodic Past or Other Problems Problem Classification Problem Date Documented Da te Episodic/Chronic Conditions associated with dizziness or vertigo (2 sources) Lightheadedness; Translations: [Dizziness and giddiness] Onset: 09-10-2024 09-10-2024 Episodic Coronary atherosclerosis and other heart disease (10 sources) Stented coronary artery; Translations: [Presence of coronary angioplasty implant and graft] Onset: 05-23-2015 01-31-2019 Episodic Comment on above: PTCA/SHABNAM x1 to RCA a nd PTCA/SHABNAM x2 to LCX 06/20/15 @ [facility] Intestinal infection (20 sources) Clostridium difficile colitis; Translations: [Enterocolitis due to Clostridium difficile, not specified as recurrent] Onset: 12-17-2019 12-17-2019 Episodic Nonspecific chest pain (7 sources) Chest pain; Translations: [Chest pain, unspecified] Onset: 03-27-2024 Episodic Other diseases of kidney and ureters (1 source) Ischemia and infarction of kidney; Translations: [Renal infarct (HCC)] Onset: 12-14-2023 Episodic Other inflammatory condition of skin (20 sources) Lichen planus; Translations: [Lichen planus, unspecified] Onset: 05-26-2010 06-17-2010 Episodic Other inflammatory condition of skin (9 sources) Itching of skin; Translations: [Pruritus, unspecified] Onset: 05-26-2010 05-26-2010 Episodic Other inflammatory condition of skin (20 sources) Lichen simplex chronicus; Translations: [Lichen simplex chronicus] Onset: 09-18-2011 09-18-2011 Episodic Other inflammatory condition of skin (20 sources) Pruritus, unspecified; Translations: [Unspecified pruritic disorder] Onset: 05-26-2010 05-26-2010 Episodic Other lower respiratory disease (1 source) Other forms of dyspnea; Translations: [COELLO (dyspnea on exertion)] Onset: 12-15-2023 Episodic Other lower respiratory disease (1 source) Shortness of breath; Translations: [Shortness of breath] Onset: 03-27-2024 Episodic Other non-epithelial cancer of skin (1 source) Personal history of other malignant neoplasm of skin; Translations: [History of basal cell carcinoma (BCC) excision] Onset: 12-14-2023 Episodic Other nutritional; endocrine; and metabolic disorders (20 sources) Obese class I; Translations: [Obesity, unspecified] Onset: 12-28-2016 Resolved: 04-05-2018 04-05-2018 Chronic Other skin disorders (20 sources) Eruption; Translations: [Rash and other nonspecific skin eruption] Onset: 05-26-2010 05-26-2010 Episodic Other skin disorders (20 sources) Post-inflammatory hyperpigmentation; Translations: [Postinflammatory hyperpigmentation] Onset: 07-16-2010 07-16-2010 Episodic Other skin disorders (20 sources) Changes in skin texture; Translations: [Other skin changes] Onset: 02-10-2011 02-10-2011 Episodic Other skin disorders (20 sources) Lichenoid actinic keratosis; Translations: [Actinic keratosis] Onset: 09-18-2011 09-18-2011 Episodic Other skin disorders (2 sources) Disorder of the skin and subcutaneous tissue, unspecified; Translations: [Lesion of skin of face] Onset: 12-14-2023 Episodic Residual codes; unclassified (1 source) Other specified postprocedural states; Translations: [History of basal cell carcinoma (BCC) excision] Onset: 12-14-2023 Episodic Residual codes; unclassified (1 source) Edema, unspecified; Translations: [Edema, unspecified] Onset: 08-13-2024 Episodic Screening and history of mental health and substance abuse codes (5 sources) Patient encounter status; Translations: [Encounter for screening examination for other mental health and behavioral disorders] Onset: 12-14-2023 12-14-2023 Episodic Spondylosis; intervertebral disc disorders; other back problems (20 sources) Thoracic and lumbosacral neuritis; Translations: [Thoracic or lumbosacral neuritis or radiculitis, unspecified] Onset: 09-07-2010 09-07-2010 Episodic Unclassified (1 source) Onset: 09-06-2017 Results Test Name Value Interpretation Reference Range Facility Anion gap in Serum or Plasma Ordered By: Rick Bermudez on 12-28-2024 Anion gap [Moles/Vol] 13 mmol/L 5-15 [facility] BUN/creatinine ratioOrdered By: Rick Bermudez on 12-28-2024 Urea nitrogen/Creatinine [Mass ratio] 22.3 mg/mg High - [facility] Basic Metabolic Profile (BMP )on 12-28-2024 BUN/CRE 22.3 RATIO High - [facility] Comment on above: Performed By: #### L 500.2500 #### [facility] [address] [place], [address] Calcium [Mass/Vol] 9.5 mg/dL Normal 7.6-11.0 [facility] Comment on above: Performed By: #### L 500.2500 #### [facility] [address] [place], [address] Chloride [Moles/Vol] 106 mmol/L Normal 98-108 [facility] Comment on above: Performed By: #### L 500.2500 #### [facility] [address] [place], [address] CO2 [Moles/Vol] 22.3 mmol/L Normal 21.0-32.0 [facility] Comment on above: Performed By: #### L 500.2500 #### [facility] [address] [place], [address] Creatinine [Mass/Vol] 1.14 mg/dL Normal 0.70-1.20 [facility] Comment on above: Performed By: #### L 500.2500 #### [facility] [address] [place], [address] GAP 13 Normal 5-15 [facility] Comment on above: Performed By: #### L 500.2500 #### [facility] [address] [place], [address] GFR/1.73 sq M.predicted among non-blacks MDRD (S/P/Bld) [Vol rate/Area] 46 mL/min/{1.73_m2} Low >60 [facility] Comment on above: Result Comment: mL/m in/1.73m2 CKD-EPI Creatinine Equation (2020) Performed By: #### L 500.2500 #### [facility] [address] [place], [address] Glucose [Mass/Vol] 152 mg/dL High 70-99 [facility] Comment on above: Performed By: #### L 500.2500 #### [facility] [address] [place], [address] Potassium [Moles/Vol] 3.9 mmol/L Normal 3.3-5.1 [facility] Comment on above: Performed By: #### L 500.2500 #### [facility] [address] [place], [address] Sodium [Moles/Vol] 142 mmol/L Normal 133-145 [facility] Comment on above: Performed By: #### L 500.2500 #### [facility] [address] [place], [address] Urea nitrogen [Mass/Vol] 25 mg/dL High 4-19 [facility] Comment on above: Performed By: #### L 500.2500 #### [facility] [address] [place], [address] Carbon dioxide, total [Moles /volume] in Central venous bloodOrdered By: Rick Bermudez on 12-28-2024 CO2 [Moles/Vol] 22.3 mmol/L 21.0-32.0 [facility] Cardiology Visit Reporton Cardiology Visit Report [facility] [address] [place], [place] [address] OFFICE VISIT Date of Service: 12/28/24 MR#: [id number] Acct: [id number] Name: TASHA SWEET Rep #: [id number] : 1935 Provider: NIKOS de la o Age/Sex: 89/F [place] [facility] [place]: Signed HPI HPI History of Present Illness Details: This is an 89-year-old female who presents today for cardiovascular urgent visit for epistasis. She has a history of coronary artery disease, hypertension, dyslipidemia, diabetes mellitus, paroxysmal atrial fibrillation, chronic renal insufficiency, mild aortic valve stenosis and pulmonary hypertension. She states that she has had two nose bleeds this week. She states that at times it takes awhile to stop, and others it doesn't take long to stop. She also acknowledges blood in her stool. From a cardiac standpoint, the patient is doing well. She denies any palpitations, chest pain, pressure or heaviness. She denies SOB, Orthopnea, and PND. She denies any decrease in energy level, myalgias, or claudication. She does not have edema, or sudden weight gain. She denies lightheadedness, dizziness, syncopal or near syncopal episodes, and headaches. Intake Vital Signs 08/06/24 08:10 12/28/24 09:52 Height 5 ft 5 ft Weight: 162 lb BMI 31.6 BP 162/77 H Blood Pressure Location Lt brachial Position Sitting Respiration 18 Pulse 55 L Pulse Source Monitor Pulse Oximetry (%) 97 Intake Visit Reasons: Epitaxis Machine Molder Required: No Is patient in pain?: No Allergies codeine Adverse Reaction (Verified 12/28/24 12:14) Nausea lisinopril Adverse Reaction (Verified 12/28/24 12:14) Cough Medications ???Medication ???Instructions ???Recorded ???Confirmed ???Type cyanocobalamin (vitamin B-12) 1,000 mcg PO DAILY SUPPLEMENT 11/0912/28/24 History 1,000 mcg tablet sulfasalazine 500 mg tablet 500 mg PO Q6H PRN PRN SKIN 2 0 12/28/24 History cholecalciferol (vitamin D3) 25 5,000 unit PO DAILY PRN SUPPLEMENT 02/16/24 12/28/24 History mcg (1,000 unit) tablet vitamins A,C,D-uwqr-clynds 4,296 1 cap PO QDAY 02/16/24 12/28/24 Hi story mcg-226 mg-90 mg capsule (PreserVision AREDS) apixaban 5 mg tablet 5 mg PO BID #180 tabs 08/06/2401/14 Rx metoprolol tartrate 100 mg tablet 100 mg PO BID heart #180 tabs 12/28/24 Rx atorvastatin 40 mg tablet 40 mg PO QDAY #90 tabs 09/04/24 Rx furosemide 40 mg tablet 40 mg PO QDAY #90 tabs 09/04/24 Rx losartan 100 mg tablet 100 mg PO QAM #90 tabs 09/04/24 Rx amlodipine 5 mg tablet 5 mg PO QHS #90 tabs 09/13/2401/14 Rx potassium chloride 8 mEq 8 meq PO DAILY #90 caps 11/07/24 0 12/28/24 Rx capsule,extended release Ejection fraction %: 65 Have you fallen in the past year?: No PFSH Medical History Atherosclerotic heart disease of [place] coronary artery without angina pectoris Diabetes mellitus type II, controlled Diverticulosis Essential hypertension History of basal cell carcinoma History of non-ST elevation myocardial infarction (NSTEMI) Internal bleeding hemorrhoids Lichen planus Macular degeneration PAF (paroxysmal atrial fibrillation) Presence of stent in coronary artery ( 06/20/15) Pure hypercholesterolemia Rectal bleeding Shortness of breath Urinary retention Surgical History History of hemorrhoidectomy ( 10/2019) History of colonoscopy ( 09/2019) History of total hysterectomy History of repair of rotator cuff History of bilateral oophorectomy Presence of coronary angioplasty implant and graft ( 06/20/15) Family History Mother Hypertension Heart disease Diabetes Father Diabetes Hypertension Sister Hypertension Diabetes Sister Diabetes Hypertension Sister Diabetes Hypertension Sister Diabetes Hypertension Social History Smoking Status: Never smoker alcohol intake: never substance use type: does not use caffeine: No ROS Const Const: Negative for fatigue, weakness, headache(s) or frequent falls Eyes Eyes: Negative for blurry vision ENT ENT: Positive for Nosebleed/epistaxis; Negative for headache(s) or dizziness Cardio Chest Pain: No Palpitations: No Edema: None Muscle aches with walking: None Resp Respiratory: Negative for SOB with activity, SOB at rest or SOB orthopnea SOB lying down GI GI: Negative nausea, vomiting, heartburn, bright, red blood in stools or black,tarry stools : Negative for hematuria Neuro Neuro: Negative for dizziness, lightheadedness, near syncope, syncope, fr (more content not included)... Normal [facility] Chloride assayOrdered By: Asaf Bermudez on 12-28-2024 Chloride [Moles/Vol] 106 mmol/L 98-108 [facility] Glomerular filtration rate ( GFR) estimation/1.73 sq m using serum, plasma, or whole bOrdered By: Rick Bermudez on 12-28-2024 GFR/1.73 sq M.predicted among non-blacks MDRD (S/P/Bld) [Vol rate/Area] 46 mL/min/{1.73_m2} Low >60 [facility] Comment on above: mL/min/1.73m2 CKD-EP I Creatinine Equation (2020) Potassium measurement (mass/ volume)Ordered By: Rick Bermudez on 12-28-2024 Potassium (Unsp spec) [Mass/Vol] 3.9 mmol/L 3.3-5.1 [facility] Serum creatinine measurement (mass/volume)Ordered By: Rick Bermudez on 12-28-2024 Creatinine [Mass/Vol] 1.14 mg/dL 0.70-1.20 [facility] Serum glucose measurement (m ass/volume)Ordered By: Rick Bermudez on 12-28-2024 Glucose [Mass/Vol] 152 mg/dL High 70-99 [facility] Serum or plasma calcium wu urement (mass/volume)Ordered By: Rick Bermudez on 12-28-2024 Calcium [Mass/Vol] 9.5 mg/dL 7.6-11.0 [facility] Serum or plasma urea nitroge n measurement (mass/volume)Ordered By: Rick Bermudez on 12-28-2024 Urea nitrogen [Mass/Vol] 25 mg/dL High 4-19 [facility] Sodium levelOrdered By: Yousuf Bermudez on 12-28-2024 Sodium [Moles/Vol] 142 mmol/L 133-145 [facility] CNPNon 11-29-2024 CNPN Telephone ([facility]) TASHA SWEET ([id number]) 1935 F Date Time Provider Department 11/29/24 LUIS AVINA During your visit today, we recorded the following information about you: Luis Avina, HAND LASTER 11/29/2024 11:29 AM Signed Patient spoke with Sw and noted that she is going to be getting approximately 4 hours a month light housekeeping and meal plan assistance. Patient notes that her insurance told her that if a social security specialist places a prior auth then advantage plan would pay for caregivers homecare. This Sw noted that she has not been able to find any caregivers homecare agencies in [place] that are in network with advantage plan. Sw can work on calling patient Medicare plan and see if they were actually referring to residential home healthcare and not caregivers homecare. [facility] Martínez notes that they do not work with [employer] so would not be able to do anything with billing for caregivers homecare services. Luis Avina, HAND LASTER 12/03/2024 11:35 AM Signed Reji tried to call patient [employer] plan to ask about caregivers homecare coverage. Sw was unable to connect with a branch service representative. Reji will try call another time. Luis Avina HAND LASTER 12/05/2024 10:08 AM Signed Reji tried call again to [facility]. System notes patient ID that REJI stated was not a correct ID. [facility] system would not allow for Sw to speak with branch service representative. Sw called and left patient message to return SW call to discuss. Luis Avina HAND LASTER 12/10/2024 12:06 PM Signed Sw spoke with patient regarding below messages. Patient notes that right now her granddaughter is staying with her through December. Patient notes then her granddaughter will be gone for 3 years, so is wanting to spend as much time with her as possible. Patient notes that right now her granddaughter is helping around her house with cooking and cleaning. Sw noted that [facility]ian told her that they do not have a contract with [facility] for home care assistance. Sw also noted that Reji called [facility] and was having issues with placing patient Member ID and speaking with a branch service representative. Patient notes that the next time [facility] calls her that she will let them know that in her area she has not found any caregivers homecare agencies that contract with them. Patient told this Sw if she finds out anything differently she will let this SW know. Allergies As of Date: 11/29/2024 Noted Allergy Reaction CODEINE 09/12/2007 11 - Vomiting LISINOPRIL 11/25/2010 3 - Cough Date Reviewed: 11/08/2024 Reviewed by: Yumiko Aleman LPN - Fully Assessed Prescriptions as of 12/10/2024 - cephALEXin (KEFLEX) 500 mg capsule Take 1 capsule by mouth three times a day. Take with food - benzonatate (TESSALON PERLE) 100 mg capsule Take 1-2 capsules by mouth three times a day as needed for cough. - albuterol HFA (PROVENTIL HFA) 90 mcg/actuation inhaler Inhale 1-2 puffs as instructed four times a day as needed for wheezing/shortness of breath (cough). - cetirizine (ZYRTEC) 10 mg tablet Take 1 tablet by mouth once daily. for runny nose - atorvastatin (LIPITOR) 40 mg tablet Take 40 mg by mouth once daily. - furosemide (LASIX) 40 mg tablet Take 1 tablet by mouth once daily. - losartan (COZAAR) 100 mg tablet Take 100 mg by mouth every morning. - mometasone (ELOCON) 0.1 % cream Apply to affected area once daily. Apply to active or flaring lichen planus area daily until clear . AVOID eyes and eyelids. May us up to 14 days per rash flare up - amLODIPine (NORVASC) 5 mg tablet Take 1 tablet by mouth once daily. (Dr. Hernández) - apixaban (ELIQUIS) 5 mg tab(s) Take 1 tablet by mouth two times a day. ([facility]) - losartan (COZAAR) 25 mg tablet Take 1 tablet by mouth once daily. ([facility]) - metoprolol tartrate, short acting, (LOPRESSOR) 100 mg tablet Take 1 tablet by mouth two times a day. ([facility]) - traZODone (DESYREL) 50 mg tablet Take 1 tablet by mouth at bedtime as needed (insomnia). - potassium chloride SR (MICRO-K) 8 mEq cpER Take 2 capsules by mouth once daily. - atorvastatin (LIPITOR) 80 mg tablet Take 1 tablet by mouth once daily. - Lactobacillus acidophilus (PROBIOTIC) 10 billion cell cap Take by mouth. - furosemide (LASIX) 20 mg tablet Take 1 tablet by mouth once daily. - sulfaSALAzine (AZULFIDINE) 500 mg tablet TAKE ONE TABLET BY MOUTH 3 TO 4 TIMES DAILY FOR LICHEN PLANUS, THEN TAPER BACK ON DOSE ABLE WHEN CONTROLLED DIRECTED - Compression Knee Highs KNEE HIGH COMPRESSION STOCKINGS 30-40 MM. DX: EDEMA - VIT C/E/ZN/COPPR/LUTEIN/ZEAXAN (PRESERVISION AREDS 2 ORAL) Take by mouth twice daily. Problem List As Of Date 11/29/2024 Noted Resolved BENIGN HYPERTENSION [I10] 01/11/2007 RESTLESS LEGS SYNDROME [G25.81] 01/11/2007 CYSTOCELE, MIDLINE [N81.11] 07/28/2007 MIXED HYPERLIPIDEMIA [E78.2] (more content not included)... Normal [facility] CNCOon 11-12-2024 CNCO Letter Text Normal [facility] CNPNon 11-12-2024 CNPN Telephone ([facility]) TASHA SWEET ([id number]) 1935 F Date Time Provider Department 11/12/24 LUIS AVINA During your visit today, we recorded the following information about you: Luis Avina MSW 11/12/2024 10:05 AM Signed Patient and Sw spoke regarding light housekeeping and meal prep needs. Patient notes that she believes that her insurance would help with the cost of caregivers homecare assistance. This Sw notes that she has not had many medicare advantage plans help with cost of aides. Reji noted Robbin Lowe may be of assistance. Chrissy is a [facility] Advisor and helps link folks with home care, assisted living, [employer] continuous churn care, elder law services. Patient notes that would be helpful. Reji also notes that she can mail patient [facility] Older Adult Resource Guide and [employer] brochures. Reji will write Sw number down on guide for any further resource needs. Luis Avina MSW 11/12/2024 1:30 PM Signed Reji spoke with Mira Mcmahan and she is going to reach out to patient for caregivers homecare resources. Allergies As of Date: 11/12/2024 Noted Allergy Reaction CODEINE 09/12/2007 11 - Vomiting LISINOPRIL 11/25/2010 3 - Cough Date Reviewed: 11/08/2024 Reviewed by: Yumiko Aleman LPN - Fully Assessed Prescriptions as of 11/12/2024 - cephALEXin (KEFLEX) 500 mg capsule Take 1 capsule by mouth three times a day. Take with food - benzonatate (TESSALON PERLE) 100 mg capsule Take 1-2 capsules by mouth three times a day as needed for cough. - albuterol HFA (PROVENTIL HFA) 90 mcg/actuation inhaler Inhale 1-2 puffs as instructed four times a day as needed for wheezing/shortness of breath (cough). - cetirizine (ZYRTEC) 10 mg tablet Take 1 tablet by mouth once daily. for runny nose - atorvastatin (LIPITOR) 40 mg tablet Take 40 mg by mouth once daily. - furosemide (LASIX) 40 mg tablet Take 1 tablet by mouth once daily. - losartan (COZAAR) 100 mg tablet Take 100 mg by mouth every morning. - mometasone (ELOCON) 0.1 % cream Apply to affected area once daily. Apply to active or flaring lichen planus area daily until clear . AVOID eyes and eyelids. May us up to 14 days per rash flare up - amLODIPine (NORVASC) 5 mg tablet Take 1 tablet by mouth once daily. (Dr. Hernández) - apixaban (ELIQUIS) 5 mg tab(s) Take 1 tablet by mouth two times a day. ([facility]) - losartan (COZAAR) 25 mg tablet Take 1 tablet by mouth once daily. ([facility]) - metoprolol tartrate, short acting, (LOPRESSOR) 100 mg tablet Take 1 tablet by mouth two times a day. ([facility]) - traZODone (DESYREL) 50 mg tablet Take 1 tablet by mouth at bedtime as needed (insomnia). - potassium chloride SR (MICRO-K) 8 mEq cpER Take 2 capsules by mouth once daily. - atorvastatin (LIPITOR) 80 mg tablet Take 1 tablet by mouth once daily. - Lactobacillus acidophilus (PROBIOTIC) 10 billion cell cap Take by mouth. - furosemide (LASIX) 20 mg tablet Take 1 tablet by mouth once daily. - sulfaSALAzine (AZULFIDINE) 500 mg tablet TAKE ONE TABLET BY MOUTH 3 TO 4 TIMES DAILY FOR LICHEN PLANUS, THEN TAPER BACK ON DOSE ABLE WHEN CONTROLLED DIRECTED - Compression Knee Highs KNEE HIGH COMPRESSION STOCKINGS 30-40 MM. DX: EDEMA - VIT C/E/ZN/COPPR/LUTEIN/ZEAXAN (PRESERVISION AREDS 2 ORAL) Take by mouth twice daily. 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] 09/18/2011 Lichenoid keratosis [L82.0] 09/18/2011 S/P coronary artery stent placement [Z95.5] 07/15/2015 Obesity, Class I, BMI 30-34.9 [E66.811] 12/28/2016 04/05/2018 PAF (paroxysmal atrial fibrillation) (HCC) [I48*06/22/2018 Renal 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.0] 10/05/2019 01/18/2023 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] 10/05/2019 01/18/2023 Clostridium difficile colitis [A04.72] 12/17/2019 Controlled type 2 diabetes mellitus without com*10/30/2020 Encounter Status:Closed by LUIS AVINA on 11/12/24 [facility] Bacteria Ur Culton 5 Bacteria identified Cx Nom (U) CULTURE, URINE: Mixed microbiota, including predominantly: ORGANISM ID: 1 >=100,000 CFU/ml Proteus mirabilis ORGANISM ID: 1 (PROTEUS MIRABILIS) ANTIBIOTIC INTERPRETATION PATIENCE STATUS REFERENCE RANGE Ampicillin S <=2 F Susceptible <=8 , Intermediate >8 , Resistant >16 Cefazolin S <=4 F Susceptible 0-16 , Intermediate <0 or >16 , Resistant >16 For uncomplicated urinary tract infections, cefazolin results can be used to predict susceptibility or resistance to cephalexin. Ceftriaxone S <=1 F Susceptible <=1 , Intermediate >1 , Resistant >=4 Cefepime S <=1 F Susceptible <=2 , Susceptible-Dose Dependent >2 , Resistant >=16 Ertapenem S <=0.5 F Susceptible <=0.5 , Intermediate >.5 , Resistant >1 Meropenem S 0.5 F Susceptible <=1 , Intermediate >1 , Resistant >2 Ampicillin/Sulbact S <=2 F Susceptible <=8 , Intermediate >8 , Resistant >16 Piperacillin/Tazobac S <=4 F Susceptible <16 , Susceptible-Dose Dependent >=16 , Resistant >=32 Gentamicin S <=1 F Susceptible <=2 , Intermediate >2 , Resistant >=8 Tobramycin S <=1 F Susceptible <4 , Intermediate >=4 , Resistant >=8 Trimeth sulfameth S <=20 F Susceptible <=40 , Resistant >40 Ciprofloxacin S <=0.25 F Susceptible <0.5 , Intermediate >=.5 , Resistant >=1 Nitrofurantoin R 128 F Susceptible <=32 , Intermediate >32 , Resistant >64 Abnormal [facility] Comment on above: Performed By: #### 6 30-4 ####[facility] LABCLIA [id number] [address] OF [facility] CNOVon 11-08-2024 CNOV Office Visit (INTMWS ) TASHA SWEET ([id number]) 1935 F Date Time Provider Department 11/08/24 11:40 AM JESSIE HURT INTMWS During your visit today, we recorded the following information about you: Pulse Respiration Blood pressure Weight 62/minute 16/minute 155/75 74 kg Jessie Hurt APRN.COMPUTER LANGUAGE CODER 11/08/2024 12:31 PM Signed Subjective Patient ID: Tasha is a 89 year old female who presents for uti symptoms. HPI Tasha Sweet is an 89-year-old female with a history of recurrent UTIs, presenting for evaluation of a UTI. Recurrent UTIs: - Current episode began on Tuesday with dysuria and suprapubic pain. - Took OTC medication on Tuesday, with symptom relief on Tuesday and Tuesday. - Symptoms worsened on Tuesday, with significant burning and pain at 06:00-06:30. - Increased water intake over the past month. - No current urology follow-up. - Approximately three infections in the past six months. - History of hysterectomy in late 30s. - Bladder suspension performed approximately [address] Hays at [facility]. Macular Degeneration: - Receiving intravitreal injections. - Significant visual impairment, unable to drive or perform certain ADLs. - Requires assistance with cooking and keeping house - Daughter provides meals and assistance but has limited availability due to family obligations. ROS Eyes: (+) decreased vision Genitourinary: (+) dysuria Objective BP 155/75 Pulse 62 Resp 16 Wt 74 kg (163 lb 2.3 oz) BMI 30.83 kg/m? Physical Exam Vitals and nursing note reviewed. Constitutional: Appearance: Normal appearance. HENT: Head: Normocephalic and atraumatic. Eyes: Conjunctiva/sclera: Conjunctivae normal. Cardiovascular: Rate and Rhythm: Normal rate. Skin: General: Skin is warm and dry. Neurological: General: No focal deficit present. Mental Status: She is alert and oriented to person, place, and time. 1. Recurrent UTI (N39.0) 2. UTI symptoms (R39.9) - has experienced three UTIs in the past six months, raising concerns about potential structural issues or incomplete bladder emptying. - Initiated antibiotic therapy. - Referred to Dr. Nani Neal, urogynecologist in [place], for further evaluation and management. Alternatively, Dr. Suyapa Galan is available locally. - Discussed potential need for imaging studies such as ultrasound to assess bladder function. - has had a bladder suspension approximately [address] Hays at [facility] - Advised to continue adequate hydration. 3. Macular degeneration, unspecified laterality, unspecified type (H35.30) - Preceiving intravitreal injections; experiencing significant visual impairment. - Discussed long-term planning for visual assistance and potential need for increased support at home. 4. Self-care deficit (Z78.9) -requires assistance with daily activities such as dressing and cooking due to visual impairment. Daughter is less available due to husbands illness, other daughter due to her own illness. - Referred to Luis, social security specialist, to explore available community services and support options. - Discussed potential future needs for assisted living or increased home support. Consult REJI Hurt APRN.COMPUTER LANGUAGE CODER Medical Decision Making: Problems: Moderate: 1+ chronic illnesses with change Data: Unique test(s) ordered: 2 Risk: Moderate: Drug management Medical Decision Making Level: 4 - Moderate Allergies As of Date: 11/08/2024 Noted Allergy Reaction CODEINE 09/12/2007 11 - Vomiting LISINOPRIL 11/25/2010 3 - Cough Date Reviewed: 11/08/2024 Reviewed by: Yumiko Aleman LPN - Fully Assessed Reason for Visit: uti symptoms [Other] Primary Visit Diagnosis:Recurrent UTI [N39.0] Other Visit Diagnoses:UTI symptoms [R39.9] Macular degeneration, unspecified laterality, unspecified type [H35.30] Self-care deficit [Z78.9] Order(s):UA DIP, URINE (POC) [[id number]] Order #: [id number]. #:[id number] BACTERIAL CULTURE, URINE [SQURCUL] Order #: [id number]. #:[id number] cephALEXin (KEFLEX) 500 mg capsuleTake 1 capsule by mouth three times a day. Take with foodDisp: 21 capsuleRfl: 0 CONSULT TO FEMALE UROLOGY/URO GYNECOLOGY [[id number]] Order #: [id number]: 1 FUTURE PRIMARY CARE SOCIAL WORK CONSULT [[id number]] Order #: [id number]: 1 PRIMARY CARE SOCIAL WORK CONSULT [[id number]] Order #: [id number]: 1 Prescriptions as of 11/08/2024 - cephALEXin (KEFLEX) 500 mg capsule Take 1 capsule by mouth three times a day. Take with food - benzonatate (TESSALON PERLE) 100 mg capsule Take 1-2 capsules by mouth three times a day as needed for cough. - albuterol HFA (PROVENTIL HFA) 90 mcg/actuation inhaler Inhale 1-2 puffs as instructed four times a day as needed for wheezing/shortness of breath (cough). - cetirizine (ZYRTEC) 10 mg table (more content not included)... Normal [facility] UA DIP, URINE (POC)on 2024 BILIRUBIN UA (POCT) Negative Negative [facility] CLARITY UA (POCT) Clear [facility] COLOR U[facility] ([facility]) [place] [facility] GLUCOSE UA (POCT) 100 mg/dL Abnormal Negative [facility] Hemoglobin Ql (U) Trace-intact Abnormal Negative [facility] Interpretation and review of laboratory results Abnormal [facility] KETONE UA (POCT) Negative Negative mg/dL [facility] LEUKOCYTES UA (POCT) Large Abnormal Negative [facility] NITRITE UA (POCT) Positive Abnormal Negative [facility] PH UA (POCT) 6.5 4.5 - 8.[address] [facility] Protein Ql (U) 100 mg/dL Abnormal Negative [facility] SPECIFIC GRAVITY UA (POCT) 1.01 1.005 - 1.[address] [facility] UROBILINOGEN UA (POCT) 2 Abnormal Normal E.U./dL [facility] Location:[address], [place], [place], [id number] [place] [address] POINT OF CARE [facility] CNOVon 09-13-2024 CNOV Office Visit (INTMWS ) TASHA SWEET ([id number]) 1935 F Date Time Provider Department 09/13/24 9:40 AM JESSIE HURT INTMWS During your visit today, we recorded the following information about you: Temperature Pulse Respiration Blood pressure 98.7 degrees 64/minute 16/minute 121/77 Weight 74 kg Jessie Hurt, TIMING INSPECTOR.COMPUTER LANGUAGE CODER 09/13/2024 10:11 AM Signed SUBJECTIVE Tasha Sweet is a 89 year old female who presents with 4 days of symptoms that are stable. Symptoms include: Fever (>=100.4F): Yes perceived For Chills: No Cough: Yes not productive Shortness of breath: Yes or Difficulty breathing: No Fatigue: Yes Muscle aches: No Headache: No New loss of smell or taste: No Sore throat: Yes x 1 day now resolved Nasal congestion: Yes or Rhinorrhea: Yes Nausea: No or Vomiting: No Diarrhea: No OTC meds/remedies that patient has tried: mucinex. High risk category assessment Age > 60 years old Exposures: Sick contacts? Yes Family or close contacts with confirmed/probable COVID-19 in last 14 days? No She reports that she quit smoking about 68 years ago. Her smoking use included cigarettes. She has never used smokeless tobacco. OBJECTIVE PHYSICAL EXAM: BP 121/77 Pulse 64 Temp 37.1 ?C (98.7 ?F) Resp 16 Wt 74 kg (163 lb 2.3 oz) SpO2 95% BMI 30.83 kg/m? General appearance: tired/ill appearing, alert, cooperative, pleasant, in no acute distress Head: Normocephalic Eyes: conjunctiva/corneas normal Ears: R TM - not visualized secondary to cerumen, L TM - clear with good landmarks, nl light reflex Nose: clear rhinorrhea, no sinus tenderness Oropharynx: moist without lesions, mild erythema to GPA, no exudate Neck: supple and small, benign anterior cervical nodes bilaterally Heart: regular rate and rhythm, without murmur Lungs: clear to auscultation, without rales or wheeze, good air exchange ASSESSMENT/PLAN (J32.9, J40) Sinobronchitis (primary encounter diagnosis) 1. Sinobronchitis (J32.9) - Symptoms include rhinorrhea, cough, intermittent fever, and mild dyspnea. No myalgias, cephalgia, or pharyngitis reported. - Physical examination reveals mild wheezing on auscultation. - Prescribed Albuterol inhaler to be used every 4-6 hours and at bedtime if cough is disruptive. - Prescribed cough suppressant and antihistamine for rhinorrhea. - Advised rest and increased fluid intake. - understands and agrees with the treatment plan. Declines RSV, COvid, Flu testing. Jessie Hurt APRN.COMPUTER LANGUAGE CODER Medical Decision Making: Problems: Low: Acute, uncomplicated illness or injury Risk: Moderate: Drug management Medical Decision Making Level: 3 - Low Allergies As of Date: 09/13/2024 Noted Allergy Reaction CODEINE 09/12/2007 11 - Vomiting LISINOPRIL 11/25/2010 3 - Cough Date Reviewed: 09/13/2024 Reviewed by: Yumiko Aleman LPN - Fully Assessed Reason for Visit: URI [115] Primary Visit Diagnosis:Sinobronchitis [J32.9, J40] Order(s):benzonatate (TESSALON PERLE) 100 mg capsuleTake 1-2 capsules by mouth three times a day as needed for cough.Disp: 60 capsuleRfl: 1 albuterol HFA (PROVENTIL HFA) 90 mcg/actuation inhalerInhale 1-2 puffs as instructed four times a day as needed for wheezing/shortness of breath (cough).Disp: 1 eachRfl: 1 cetirizine (ZYRTEC) 10 mg tabletTake 1 tablet by mouth once daily. for runny noseDisp: 30 tabletRfl: 2 Prescriptions as of 09/13/2024 - benzonatate (TESSALON PERLE) 100 mg capsule Take 1-2 capsules by mouth three times a day as needed for cough. - albuterol HFA (PROVENTIL HFA) 90 mcg/actuation inhaler Inhale 1-2 puffs as instructed four times a day as needed for wheezing/shortness of breath (cough). - cetirizine (ZYRTEC) 10 mg tablet Take 1 tablet by mouth once daily. for runny nose - atorvastatin (LIPITOR) 40 mg tablet Take 40 mg by mouth once daily. - furosemide (LASIX) 40 mg tablet Take 1 tablet by mouth once daily. - losartan (COZAAR) 100 mg tablet Take 100 mg by mouth every morning. - sulfamethoxazole-trimethoprim (BACTRIM DS) 800-160 mg per tablet Take 1 tablet by mouth two times a day for 3 days. Take with food - mometasone (ELOCON) 0.1 % cream Apply to affected area once daily. Apply to active or flaring lichen planus area daily until clear . AVOID eyes and eyelids. May us up to 14 days per rash flare up - amLODIPine (NORVASC) 5 mg tablet Take 1 tablet by mouth once daily. (Dr. Hernández) - apixaban (ELIQUIS) 5 mg tab(s) Take 1 tablet by mouth two times a day. ([facility]) - losartan (COZAAR) 25 mg tablet Take 1 tablet by mouth once daily. ([facility]) - metoprolol tartrate, short acting, (LOPRESSOR) 100 mg tablet Take 1 tablet by mouth two times a day. ([facility]) - traZODone (DESYREL) 50 mg tablet Take 1 tablet by mouth at bedtime as needed (insomnia). - potassium chloride SR (PATIENCE (more content not included)... Normal [facility] Bacteria Ur Culton 5 Bacteria identified Cx Nom (U) ORGANISM ID: 1 >=100,000 CFU/ml Proteus mirabilis ORGANISM ID: 1 (PROTEUS MIRABILIS) ANTIBIOTIC INTERPRETATION PATIENCE STATUS REFERENCE RANGE Ampicillin S <=2 F Susceptible <=8 , Intermediate >8 , Resistant >16 Cefazolin S <=4 F Susceptible 0-16 , Intermediate <0 or >16 , Resistant >16 For uncomplicated urinary tract infections, cefazolin results can be used to predict susceptibility or resistance to cephalexin. Ceftriaxone S <=1 F Susceptible <=1 , Intermediate >1 , Resistant >=4 Cefepime S <=1 F Susceptible <=2 , Susceptible-Dose Dependent >2 , Resistant >=16 Ertapenem S <=0.5 F Susceptible <=0.5 , Intermediate >.5 , Resistant >1 Meropenem S <=0.25 F Susceptible <=1 , Intermediate >1 , Resistant >2 Ampicillin/Sulbact S <=2 F Susceptible <=8 , Intermediate >8 , Resistant >16 Piperacillin/Tazobac S <=4 F Susceptible <16 , Susceptible-Dose Dependent >=16 , Resistant >=32 Gentamicin S <=1 F Susceptible <=2 , Intermediate >2 , Resistant >=8 Tobramycin S <=1 F Susceptible <4 , Intermediate >=4 , Resistant >=8 Trimeth sulfameth S <=20 F Susceptible <=40 , Resistant >40 Ciprofloxacin S <=0.25 F Susceptible <0.5 , Intermediate >=.5 , Resistant >=1 Nitrofurantoin R 128 F Susceptible <=32 , Intermediate >32 , Resistant >64 Abnormal [facility] Comment on above: Performed By: #### 6 30-4 ####[facility] LABCLIA [id number] [address] OF [facility] CNOVon 09-10-2024 CNOV Office Visit (INTMWS ) TASHA SWETE ([id number]) 1935 F Date Time Provider Department 09/10/24 12:00 PM JESSIE HURT INTMWS During your visit today, we recorded the following information about you: Pulse Respiration Blood pressure Weight 80/minute 16/minute 145/80 75 kg Jessie Hurt APRN.[facility] 09/10/2024 12:43 PM Signed SUBJECTIVE: RSV Vaccine(1 - 1-dose 75+ series) Never done DTaP,Tdap,Td Vaccine(2 - Td or Tdap) due on 01/11/2017 HPI Tasha Sweet is a 89 year old female. PMH significant for ACTIVE PROBLEM LIST BENIGN HYPERTENSION Restless Legs Syndrome (Rls) Cystocele, Midline Mixed Hyperlipidemia Lichen Planus Rash and Other Nonspecific Skin Eruption Pruritus Proteinuria Postinflammatory Hyperpigmentation Thoracic Or Lumbosacral Neuritis Or Radiculitis, Unspecified Postinflammatory Skin Changes Lichenoid Dermatitis Lichenoid Keratosis S/P Coronary Artery Stent Placement Paf (Paroxysmal Atrial Fibrillation) ([facility]) Clostridium Difficile Colitis Controlled Type 2 Diabetes Mellitus Without Complication, Without Long-Term Current Use of Insulin ([facility]) Today reports UTI symptoms. Urinary Tract Infection: - Onset of symptoms began late Tuesday night. - Symptoms include dysuria, urinary frequency, lower abdominal and back pain. - Took Azo with temporary relief; symptoms returned once medication wore off. - Suspected fever on Tuesday night, but did not measure temperature. - no hematuria. - Asks if UTI could be causing balance issues. Hypertension: - Recent cardiology visit noted elevated blood pressure at 191/91 mmHg. - Monitoring diet closely to manage blood pressure. - No new antihypertensive medications prescribed recently. Positional lightheadedness with bending over and arising qickly - Asks if UTI could be causing balance issues. ROS Constitutional: (+) fever (self-reported), (-) weakness Ears/Nose/Mouth/Throat: (+) hearing changes Genitourinary: (+) dysuria, (+) urinary frequency Musculoskeletal: (+) back pain Neurological: (+) loss of balance (near falls) Psychiatric: (+) fear of falling Objective BP 145/80 Pulse 80 Resp 16 Wt 75 kg (165 lb 5.5 oz) BMI 31.24 kg/m? Physical Exam Vitals and nursing note reviewed. Constitutional: Appearance: Normal appearance. HENT: Head: Normocephalic and atraumatic. Eyes: Conjunctiva/sclera: Conjunctivae normal. Neck: Thyroid: No thyromegaly. Vascular: Normal carotid pulses. No JVD. Cardiovascular: Rate and Rhythm: Normal rate. Pulses: Carotid pulses are 2+ on the right side and 2+ on the left side. Radial pulses are 2+ on the right side and 2+ on the left side. Pulmonary: Effort: Pulmonary effort is normal. Musculoskeletal: Right lower leg: No edema. Left lower leg: No edema. Skin: General: Skin is warm and dry. Neurological: General: No focal deficit present. Mental Status: She is alert and oriented to person, place, and time. ALLERGIES Allergen Reactions Codeine Vomiting Lisinopril Cough MEDICATIONS atorvastatin (LIPITOR) 40 mg tablet Take 40 mg by mouth once daily. furosemide (LASIX) 40 mg tablet Take 1 tablet by mouth once daily. losartan (COZAAR) 100 mg tablet Take 100 mg by mouth every morning. mometasone (ELOCON) 0.1 % cream Apply to affected area once daily. Apply to active or flaring lichen planus area daily until clear . AVOID eyes and eyelids. May us up to 14 days per rash flare up amLODIPine (NORVASC) 5 mg tablet Take 1 tablet by mouth once daily. (Dr. Hernández) apixaban (ELIQUIS) 5 mg tab(s) Take 1 tablet by mouth two times a day. ([facility]) metoprolol tartrate, short acting, (LOPRESSOR) 100 mg tablet Take 1 tablet by mouth two times a day. ([facility]) potassium chloride SR (MICRO-K) 8 mEq cpER Take 2 capsules by mouth once daily. sulfaSALAzine (AZULFIDINE) 500 mg tablet TAKE ONE TABLET BY MOUTH 3 TO 4 TIMES DAILY FOR LICHEN PLANUS, THEN TAPER BACK ON DOSE ABLE WHEN CONTROLLED DIRECTED VIT C/E/ZN/COPPR/LUTEIN/ZEAXAN (PRESERVISION AREDS 2 ORAL) Take by mouth twice daily. sulfamethoxazole-trimethoprim (BACTRIM DS) 800-160 mg per tablet Take 1 tablet by mouth two times a day for 3 days. Take with food losartan (COZAAR) 25 mg tablet Take 1 tablet by mouth once daily. ([facility]) (Patient not taking: Reported on 09/10/2024) traZODone (DESYREL) 50 mg tablet Take 1 tablet by mouth at bedtime as needed (insomnia). (Patient not taking: Reported on 06/04/2024) atorvastatin (LIPITOR) 80 mg tablet Take 1 tablet by mouth once daily. (Patient not taking: Reported on 09/10/2024) Lactobacillus acidophilus (PROBIOTIC) 10 billion cell cap Take by mouth. (Patient not taking: Reported on 06/04/2024) furosemide (LASIX) 20 mg tablet Take 1 tablet by mouth once daily. (Patient not taking: Reported on 09/10/2024) Compression Knee H (more content not included)... Normal [facility] Gerald 09-10-2024 [facility] Telephone (INTMWS) TASHA SWEET ([id number]) 1935 F Date Time Provider Department 4/21/25 JADYN BOWDEN During your visit today, we recorded the following information about you: Digna Ridley, RN 09/10/2024 9:34 AM Signed Pt calling in with symptoms of a UTI. Pt concerned because she states this is at least her third UTI since the beginning of the year. Pt states she is having burning and frequency with urination as well as throbbing in her lower abdomen. Pt states symptoms started on Tuesday and then subsided until Tuesday evening. Pt was unaware that our [facility] is open on the weekends. Pt states she has been using OTC AZO which has been helping with her symptoms. Pt booked for an appt withJessie Hurt at noon today. Allergies As of Date: 09/10/2024 Noted Allergy Reaction CODEINE 09/12/2007 11 - Vomiting LISINOPRIL 11/25/2010 3 - Cough Date Reviewed: 06/19/2024 Reviewed by: Jessie Hurt APRN.COMPUTER LANGUAGE CODER - Fully Assessed Reason for Visit: UTI [116] Prescriptions as of 09/10/2024 - mometasone (ELOCON) 0.1 % cream Apply to affected area once daily. Apply to active or flaring lichen planus area daily until clear . AVOID eyes and eyelids. May us up to 14 days per rash flare up - amLODIPine (NORVASC) 5 mg tablet Take 1 tablet by mouth once daily. (Dr. Hernández) - apixaban (ELIQUIS) 5 mg tab(s) Take 1 tablet by mouth two times a day. ([facility]) - losartan (COZAAR) 25 mg tablet Take 1 tablet by mouth once daily. ([facility]) - metoprolol tartrate, short acting, (LOPRESSOR) 100 mg tablet Take 1 tablet by mouth two times a day. ([facility]) - traZODone (DESYREL) 50 mg tablet Take 1 tablet by mouth at bedtime as needed (insomnia). - potassium chloride SR (MICRO-K) 8 mEq cpER Take 2 capsules by mouth once daily. - atorvastatin (LIPITOR) 80 mg tablet Take 1 tablet by mouth once daily. - Lactobacillus acidophilus (PROBIOTIC) 10 billion cell cap Take by mouth. - furosemide (LASIX) 20 mg tablet Take 1 tablet by mouth once daily. - sulfaSALAzine (AZULFIDINE) 500 mg tablet TAKE ONE TABLET BY MOUTH 3 TO 4 TIMES DAILY FOR LICHEN PLANUS, THEN TAPER BACK ON DOSE ABLE WHEN CONTROLLED DIRECTED - Compression Knee Highs KNEE HIGH COMPRESSION STOCKINGS 30-40 MM. DX: EDEMA - VIT C/E/ZN/COPPR/LUTEIN/ZEAXAN (PRESERVISION AREDS 2 ORAL) Take by mouth twice daily. 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] 09/18/2011 Lichenoid keratosis [L82.0] 09/18/2011 S/P coronary artery stent placement [Z95.5] 07/15/2015 Obesity, Class I, BMI 30-34.9 [E66.811] 12/28/2016 04/05/2018 PAF (paroxysmal atrial fibrillation) (HCC) [I48*06/22/2018 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 CLARITY UA (POCT) Clear [facility] COLOR UA (POCT) [place] [facility] GLUCOSE UA (POCT) 100 mg/dL Abnormal Negative [facility] Hemoglobin Ql (U) Trace-intact Abnormal Negative [facility] Interpretation and review of laboratory results Abnormal [facility] KETONE UA (POCT) Negative Negative mg/dL [facility] LEUKOCYTES UA (POCT) Small Abnormal Negative [facility] NITRITE UA (POCT) Positive Abnormal Negative [facility] PH UA (POCT) 6.5 4.5 - 8.[address] [facility] Protein Ql (U) Trace Abnormal Negative mg/dL [facility] SPECIFIC GRAVITY UA (POCT) 1.015 1.005 - 1.[address] [facility] UROBILINOGEN UA (POCT) 1 Normal E.U./dL [facility] Location:[address], [place], [place], [id number] [place] [address] POINT OF CARE [facility] Office Visit Reporton 2024 Office Visit Report [facility] [address] [place] [id number] OFFICE VISIT Date of Service: 08/17/24 MR#: [id number] Acct: [id number] Patient: TASHA SWEET Rep #: [id number] : 1935 Provider: Dr. Rick Bermudez MD Age/Sex: 88/F Location: [facility] Status: Signed Intake Vital Signs 08/06/24 08:10 Height 5 ft Weight: 166 lb BMI 32.4 BP 180/87 H Blood Pressure Location Lt brachial Position Sitting Respiration 16 Pulse 78 Pulse Source NIBP Intake Visit Reasons: BP CHECK Chief Complaint: CP Allergies codeine Adverse Reaction (Verified 08/06/24 13:34) Nausea lisinopril Adverse Reaction (Verified 08/06/24 13:34) Cough Have you fallen in the past year?: No Nursing Note Patient in office for BP check after making below changes to medications. Denies any negative side effects. Took in both arms as patient states her left arm typically runs much higher than right. Please call patient at [phone] with recommendations. Took medications approximately one hour ago. Right arm: 179/79, pulse 73 Left arm: 169/88 08/08 121/74, pulse 74 165/87, pulse 76 08/09 139/68, pulse 76 08/11 163/72, pulse 58 08/16 145/68, pulse 76 Clinical Quality Measures Falls Risk Screening/Assistive Devices Have you fallen in the past year?: No 08/20/24 1237 Date ____ Rick Bermudez MD Cosigner Signature: Date ____ (if applicable) CC: Normal [facility] Anion gap in Serum or Plasma Ordered By: Rick Bermudez on 08-06-2024 Anion gap [Moles/Vol] 11 mmol/L 5-15 [facility] BUN/creatinine ratioOrdered By: Rick Bermudez on 08-06-2024 Urea nitrogen/Creatinine [Mass ratio] 16.5 mg/mg 10- [facility] Bilirubin, totalOrdered By: Rcik Bermudez on 08-06-2024 Bilirubin [Mass/Vol] 0.53 mg/dL 0.00-1.30 [facility] Carbon dioxide, total [Moles /volume] in Central venous bloodOrdered By: Rick Bermudez on 08-06-2024 CO2 [Moles/Vol] 23.7 mmol/L 21.0-32.0 [facility] Cardiology Visit Reporton Cardiology Visit Report [facility]. [address] [place] [address] OFFICE VISIT Date of Service: 08/06/24 MR#: [id number] Acct: [id number] Name: TASHA SWEET Rep #: [id number] : 1935 Provider: Dr. Rick Bermudez MD Age/Sex: 88/F Location[facility] Status: Signed HPI HPI History of Present Illness Details: This lady with history of coronary artery disease, hypertension, dyslipidemia, diabetes mellitus, paroxysmal atrial fibrillation, chronic renal insufficiency, mild aortic valve stenosis and pulmonary hypertension is here for follow-up visit. Denies any chest pain or shortness of breath. Denies orthopnea or PND. No ankle edema. Denies any palpitations. No lightheadedness or dizziness. No syncope or presyncope. 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 Required: No Accompanied by: Daughter Is patient in pain?: No Allergies codeine Adverse Reaction (Verified 08/06/24 13:34) Nausea lisinopril Adverse Reaction (Verified 08/06/24 13:34) Cough Medications ???Medication ???Instructions ???Recorded ???Confirmed ???Type cyanocobalamin (vitamin B-12) 1,000 mcg PO DAILY SUPPLEMENT 11/0908/06/24 History 1,000 mcg tablet sulfasalazine 500 mg tablet 500 mg PO Q6H PRN PRN SKIN 0 08/06/24 History amlodipine 5 mg tablet 5 mg PO DAILY #90 tabs 11/11/23 Rx losartan 25 mg tablet 25 mg PO DAILY #90 tabs 11/11/23 0 08/06/24 Rx potassium chloride 8 mEq 8 meq PO DAILY #90 caps 11/11/23 0 08/06/24 Rx capsule,extended release atorvastatin 80 mg tablet 80 mg PO QHS #90 tabs 12/13/23 Rx furosemide 20 mg tablet 20 mg PO DAILY #90 tabs 12/13/23 0 08/06/24 Rx metoprolol tartrate 100 mg tablet 100 mg PO BID heart #180 tabs 08/06/24 Rx cholecalciferol (vitamin D3) 25 5,000 unit PO DAILY PRN SUPPLEMENT 02/16/24 08/06/24 History mcg (1,000 unit) tablet vitamins A,C,R-luhu-ftppje 4,296 1 cap PO QDAY 02/16/24 08/06/24 Hi story mcg-226 mg-90 mg capsule (PreserVision AREDS) apixaban 5 mg tablet 5 mg PO BID #180 tabs 08/06/24 Rx Ejection fraction %: 65 Have you fallen in the past year?: Yes PFSH Medical History Atherosclerotic heart disease of [place] coronary artery without angina pectoris Diabetes mellitus type II, controlled Diverticulosis Essential hypertension History of basal cell carcinoma History of non-ST elevation myocardial infarction (NSTEMI) Internal bleeding hemorrhoids Lichen planus Macular degeneration PAF (paroxysmal atrial fibrillation) Presence of stent in coronary artery ( 06/20/15) Pure hypercholesterolemia Rectal bleeding Shortness of breath Urinary retention Surgical History History of bilateral oophorectomy History of colonoscopy ( 09/2019) History of hemorrhoidectomy ( 10/2019) History of repair of rotator cuff History of total hysterectomy Presence of coronary angioplasty implant and graft ( 06/20/15) Family History Mother Hypertension Heart disease Diabetes Father Diabetes Hypertension Sister Hypertension Diabetes Sister Diabetes Hypertension Sister Diabetes Hypertension Sister Diabetes Hypertension Social History Smoking Status: Never smoker alcohol intake: never substance use type: does not use caffeine: No ROS Const Const: Positive for fatigue (comes and goes); Negative for weakness, headache(s) or weight gain ENT ENT: Negative for headache(s), dizziness, Nosebleed/epistaxis or balance problems Cardio Chest Pain: No Palpitations: Yes Edema: Bilateral (BLE with dependence) Muscle aches with walking: None Resp Respiratory: Positive for SOB with activity and SOB at rest (seldom); Negative for SOB orthopnea SOB lying down GI GI: Negative nausea, vomiting or heartburn Musc Musc: Negative for muscle aches/ myalgia, muscle weakness, joint pain or balance problems Neuro Neuro: Negative for dizziness, lightheadedness, near syncope, syncope, headache(s) or weakness Endo Endo: Positive for fatigue (comes and goes) Cardiology Exam Const Appearance: comfortable and no acute distress Nutritional Appearance: well nourished Neck Neck: no JVD Carotids: Negative bruit Chest Auscultation: Bilateral: Clear to Auscultation Cardio Rhythm: irregularly irregular Heart sounds: S1 normal and S2 normal Neuro General: patient (more content not included)... Normal [facility] Chloride assayOrdered By: Asaf Bermudez on 08-06-2024 Chloride [Moles/Vol] 107 mmol/L 98-108 [facility] Comprehensive Metabolic Prof ilon 08-06-2024 Albumin [Mass/Vol] 4.1 g/dL Normal 3.4-4.8 [facility] Comment on above: Performed By: #### L [id number], [id number] #### [facility] [address] [place], [address] Albumin/Globulin [Mass ratio] 1.2 {ratio} Normal 0.9-2.4 [facility] Comment on above: Performed By: #### L [id number], [id number] #### [facility] [address] [place], [address] ALK PHOS 135 U/L High 35-104 [facility] Comment on above: Performed By: #### L [id number], [id number] #### [facility] [address] [place], [address] ALT [Catalytic activity/Vol] 12 U/L Normal <=34 [facility] Comment on above: Performed By: #### L [id number], [id number] #### [facility] [address] [place], [address] AST [Catalytic activity/Vol] 18 U/L Normal <=31 [facility] Comment on above: Performed By: #### L [id number], [id number] #### [facility] [address] [place], [address] Bilirubin [Mass/Vol] 0.53 mg/dL Normal 0.00-1.30 [facility] Comment on above: Performed By: #### L [id number], [id number] #### [facility] [address] [place], [address] BUN/CRE 16.5 RATIO Normal 10-20 [facility] Comment on above: Performed By: #### L [id number], [id number] #### [facility] [address] [place], [address] Calcium [Mass/Vol] 9.6 mg/dL Normal 7.6-11.0 [facility] Comment on above: Performed By: #### L [id number], [id number] #### [facility] [address] [place], [address] Chloride [Moles/Vol] 107 mmol/L Normal 98-108 [facility] Comment on above: Performed By: #### L [id number], [id number] #### [facility] [address] [place], [address] CO2 [Moles/Vol] 23.7 mmol/L Normal 21.0-32.0 [facility] Comment on above: Performed By: #### L [id number], [id number] #### [facility] [address] [place], [address] Creatinine [Mass/Vol] 1.02 mg/dL Normal 0.70-1.20 [facility] Comment on above: Performed By: #### L [id number], [id number] #### [facility] [address] [place], [address] GAP 11 Normal 5-15 [facility] Comment on above: Performed By: #### L [id number], [id number] #### [facility] [address] [place], [address] GFR/1.73 sq M.predicted among non-blacks MDRD (S/P/Bld) [Vol rate/Area] 53 mL/min/{1.73_m2} Low >60 [facility] Comment on above: Result Comment: mL/m in/1.73m2 CKD-EPI Creatinine Equation (2020) Performed By: #### L [id number], [id number] #### [facility] [address] [place], [address] Globulin (S) [Mass/Vol] 3.4 g/dL Normal 2.2-4.2 [facility] Comment on above: Performed By: #### L [id number], [id number] #### [facility] [address] [place], [address] Glucose [Mass/Vol] 123 mg/dL High 70-99 [facility] Comment on above: Performed By: #### L [id number], [id number] #### [facility] [address] [place], [address] Potassium [Moles/Vol] 3.7 mmol/L Normal 3.3-5.1 [facility] Comment on above: Performed By: #### L [id number], [id number] #### [facility] [address] [place], [address] Sodium [Moles/Vol] 142 mmol/L Normal 133-145 [facility] Comment on above: Performed By: #### L [id number], [id number] #### [facility] [address] [place], [address] T PROT 7.5 g/dL Normal 5.9-8.4 [facility] Comment on above: Performed By: #### L [id number], [id number] #### [facility] [address] [place], [address] Urea nitrogen [Mass/Vol] 17 mg/dL Normal 4-19 [facility] Comment on above: Performed By: #### L [id number], [id number] #### [facility] [address] [place], [address] GFR/1.73 sq M.predicted basil g non-blacks MDRD (S/P/Bld) [Vol rate/Area]Ordered By: Rick Bermudez on 08-06-2024 Estimated GFR (MDRD) Non-Af Amer 53 Low >60 [facility] Comment on above: mL/min/1.73m2 CKD-EP I Creatinine Equation (2020) Laboratory - Chemistry and C hemistry - challengeOrdered By: Rick Bermudez on 08-06-2024 AST [Catalytic activity/Vol] 18 U/L <32 [facility] Potassium (Unsp spec) [Mass/ Vol]Ordered By: Rick Bermudez on 08-06-2024 Potassium [Moles/Vol] 3.7 mmol/L 3.3-5.1 [facility] Serum creatinine measurement (mass/volume)Ordered By: Rick Bermudez on 08-06-2024 Creatinine [Mass/Vol] 1.02 mg/dL 0.70-1.20 [facility] Serum globulin measurementOr dered By: Rick Bermudez on 08-06-2024 Globulin (S) [Mass/Vol] 3.4 g/dL 2.2-4.2 [facility] Serum glucose measurement (m ass/volume)Ordered By: Rick Bermudez on 08-06-2024 Glucose [Mass/Vol] 123 mg/dL High 70-99 [facility] Serum or plasma alanine palomino otransferase (ALT) measurementOrdered By: Rick Bermudez on 08-06-2024 ALT [Catalytic activity/Vol] 12 U/L <35 [facility] Serum or plasma albumin wu urement (mass/volume)Ordered By: Rick Bermudez on 08-06-2024 Albumin [Mass/Vol] 4.1 g/dL 3.4-4.8 [facility] Serum or plasma albumin/glob ulin mass ratioOrdered By: Rick Bermudez on 08-06-2024 Albumin/Globulin [Mass ratio] 1.2 {ratio} 0.9-2.4 [facility] Serum or plasma alkaline tra sphatase measurementOrdered By: Rick Bermudez on 08-06-2024 ALP [Catalytic activity/Vol] 135 U/L High 35-104 [facility] Serum or plasma calcium wu urement (mass/volume)Ordered By: Rick Bermudez on 08-06-2024 Calcium [Mass/Vol] 9.6 mg/dL 7.6-11.0 [facility] Serum or plasma urea nitroge n measurement (mass/volume)Ordered By: Rick Bermudez on 08-06-2024 Urea nitrogen [Mass/Vol] 17 mg/dL 4-19 [facility] Sodium levelOrdered By: Yousuf Bermudez on 08-06-2024 Sodium [Moles/Vol] 142 mmol/L 133-145 [facility] TSH DL <= 0.005 mIU/L QnOrde red By: Rick Bermudez on 08-06-2024 Thyroid Stimulating Hormone (TSH) 1.250 uIU/mL 0.300-4.20 0 [facility] Thyroid Stim Hormone (TSH)on 08-06-2024 TSH 1.250 uIU/mL Normal 0.300-4.20 0 [facility] Comment on above: Performed By: #### L [id number], [id number] #### [facility] [place], [address] Total proteinOrdered By: Cammy Bermudez on 08-06-2024 Protein [Mass/Vol] 7.5 g/dL 5.9-8.4 [facility] CNPNon 08-02-2024 [facility] Telephone (INTWS) TASHA SWEET ([id number]) 1935 F Date Time Provider Department 08/02/24 JESSIE HURT During your visit today, we recorded the following information about you: Jessie Hurt APRN.CNS 08/02/2024 8:23 AM Signed Check to see if having UTI symptoms, can send in a script for treatment if still with symptoms. LoveYumikoCONNOR 08/02/2024 8:50 AM Signed Spoke with patient and she states she if feeling great. No UTI symptoms, states last prescription really worked. Allergies As of Date: 08/02/2024 Noted Allergy Reaction CODEINE 09/12/2007 11 - Vomiting LISINOPRIL 11/25/2010 3 - Cough Date Reviewed: 06/19/2024 Reviewed by: Jessie Hurt APRN.COMPUTER LANGUAGE CODER - Fully Assessed Reason for Visit: Results [95] Cmt: UTI Prescriptions as of 08/02/2024 - mometasone (ELOCON) 0.1 % cream Apply to affected area once daily. Apply to active or flaring lichen planus area daily until clear . AVOID eyes and eyelids. May us up to 14 days per rash flare up - amLODIPine (NORVASC) 5 mg tablet Take 1 tablet by mouth once daily. (Dr. Hernández) - apixaban (ELIQUIS) 5 mg tab(s) Take 1 tablet by mouth two times a day. ([facility]) - losartan (COZAAR) 25 mg tablet Take 1 tablet by mouth once daily. ([facility]) - metoprolol tartrate, short acting, (LOPRESSOR) 100 mg tablet Take 1 tablet by mouth two times a day. ([facility]) - traZODone (DESYREL) 50 mg tablet Take 1 tablet by mouth at bedtime as needed (insomnia). - potassium chloride SR (MICRO-K) 8 mEq cpER Take 2 capsules by mouth once daily. - atorvastatin (LIPITOR) 80 mg tablet Take 1 tablet by mouth once daily. - Lactobacillus acidophilus (PROBIOTIC) 10 billion cell cap Take by mouth. - furosemide (LASIX) 20 mg tablet Take 1 tablet by mouth once daily. - sulfaSALAzine (AZULFIDINE) 500 mg tablet TAKE ONE TABLET BY MOUTH 3 TO 4 TIMES DAILY FOR LICHEN PLANUS, THEN TAPER BACK ON DOSE ABLE WHEN CONTROLLED DIRECTED - Compression Knee Highs KNEE HIGH COMPRESSION STOCKINGS 30-40 MM. DX: EDEMA - VIT C/E/ZN/COPPR/LUTEIN/ZEAXAN (PRESERVISION AREDS 2 ORAL) Take by mouth twice daily. Problem List As Of Date 08/02/2024 Noted Resolved BENIGN HYPERTENSION [I10] 01/11/2007 RESTLESS LEGS SYNDROME [G25.81] 01/11/2007 CYSTOCELE, MIDLINE [N81.11] 07/28/2007 MIXED HYPERLIPIDEMIA [E78.2] 08/03/2007 Lichen planus [L43.9] 05/26/2010 Rash and other nonspecific skin eruption [R21] 05/26/2010 Pruritus [L29.9] 05/26/2010 Proteinuria [R80.9] 06/08/2010 Postinflammatory hyperpigmentation [L81.0] 07/16/2010 Thoracic or lumbosacral neuritis or radiculitis*09/07/2010 Postinflammatory skin changes [R23.8] 02/10/2011 Lichenoid dermatitis [L28.0] 09/18/2011 Lichenoid keratosis [L82.0] 09/18/2011 S/P coronary artery stent placement [Z95.5] 07/15/2015 Obesity, Class I, BMI 30-34.9 [E66.811] 12/28/2016 04/05/2018 PAF (paroxysmal atrial fibrillation) (HCC) [I48*06/22/2018 Renal 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.0] 10/05/2019 01/18/2023 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 ORGANISM ID: 1 (PROTEUS MIRABILIS) ANTIBIOTIC INTERPRETATION PATIENCE STATUS REFERENCE RANGE Ampicillin S <=2 F Susceptible <=8 , Intermediate >8 , Resistant >16 Cefazolin S <=4 F Susceptible 0-16 , Intermediate <0 or >16 , Resistant >16 For uncomplicated urinary tract infections, cefazolin results can be used to predict susceptibility or resistance to cephalexin. Ceftriaxone S <=1 F Susceptible <=1 , Intermediate >1 , Resistant >=4 Cefepime S <=1 F Susceptible <=2 , Susceptible-Dose Dependent >2 , Resistant >=16 Meropenem S <=0.25 F Susceptible <=1 , Intermediate >1 , Resistant >2 Ampicillin/Sulbact S <=2 F Susceptible <=8 , Intermediate >8 , Resistant >16 Piperacillin/Tazobac S <=4 F Susceptible <16 , Susceptible-Dose Dependent >=16 , Resistant >=32 Gentamicin S <=1 F Susceptible <=2 , Intermediate >2 , Resistant >=8 Tobramycin S <=1 F Susceptible <4 , Intermediate >=4 , Resistant >=8 Trimeth sulfameth S <=20 F Susceptible <=40 , Resistant >40 Ciprofloxacin S <=0.25 F Susceptible <0.5 , Intermediate >=.5 , Resistant >=1 Nitrofurantoin R 128 F Susceptible <=32 , Intermediate >32 , Resistant >64 Abnormal [facility] Comment on above: Performed By: #### 6 30-4 ####[facility] PIPPA [id number] [address] [place] Gerald 06-29-2024 [facility] Telephone (INTMWS) TASHA SWEET ([id number]) 1935 F Date Time Provider Department 06/29/24 JADYN BOWDEN INTMWS During your visit today, we recorded the following information about you: Rocio Dejesus RN 06/29/2024 1:45 PM Signed Patient calling on her lab and urine test results, that were completed on , ordered by Jessie. Pt states she started to have urinary sx's today and was curious if her urine test showed any abnormal results. LILIAN Vanegas Liza D, MD 06/29/2024 2:18 PM Signed 06/19 urine was clear and neg for nitrites, with 1+ leuk esterase that went along with WBC 6-10/HPF (mild elevation). No protein increase, no bacteria, and no squamous epithelial cells (no sign of contamination). Noted a few hyaline casts--non-specific finding. What symptoms of UTI now? May get urine studies first to determine if has UTI (could take 3 days for urine culture results to come back). If not able to come in but symptoms are consistent with UTI. can treat empirically then check post med UA CANDS if symptoms not resolving. Orders placed so can do urine tests either way. I sent a RX for dose given for complicated UTI--if having fever or flank pain. If just has simple cystitis symptoms (bladder and burning with urination), can take 1 pill twice daily for 5 days. The following approved medication requests have been transmitted electronically. Requested Prescriptions Signed Prescriptions Disp Refills cephALEXin (KEFLEX) 500 mg capsule 40 capsule 0 Sig: Take 1 capsule by mouth four times daily for 10 days. Authorizing Provider: JADYN BOWDEN MD Babulski, Amanda, RN 06/29/2024 3:43 PM Signed Pt called and is notified of providers results and instructions. Pt voices understanding. Pt states she has pain at the bottom of her pelvis, pressure, burning, and urinary frequency. Pt is going to see if she can get a ride in to to UA and culture tonight. Ángela Babulski, RN Allergies As of Date: 06/29/2024 Noted Allergy Reaction CODEINE 09/12/2007 11 - Vomiting LISINOPRIL 11/25/2010 3 - Cough Date Reviewed: 06/19/2024 Reviewed by: Jessie Hurt APRN.COMPUTER LANGUAGE CODER - Fully Assessed Reason for Visit: Results [95] Primary Visit Diagnosis:UTI symptoms [R39.9] Order(s):BACTERIAL CULTURE, URINE [SQURCUL] Order #: [id number] FUTURE URINALYSIS, WITH MICROSCOPIC [SQUAWMIC] Order #: [id number] FUTURE cephALEXin (KEFLEX) 500 mg capsuleTake 1 capsule by mouth four times daily for 10 days.Disp: 40 capsuleRfl: 0 Prescriptions as of 06/29/2024 - cephALEXin (KEFLEX) 500 mg capsule Take 1 capsule by mouth four times daily for 10 days. - mometasone (ELOCON) 0.1 % cream Apply to affected area once daily. Apply to active or flaring lichen planus area daily until clear . AVOID eyes and eyelids. May us up to 14 days per rash flare up - amLODIPine (NORVASC) 5 mg tablet Take 1 tablet by mouth once daily. (Dr. Hernández) - apixaban (ELIQUIS) 5 mg tab(s) Take 1 tablet by mouth two times a day. ([facility]) - losartan (COZAAR) 25 mg tablet Take 1 tablet by mouth once daily. ([facility]) - metoprolol tartrate, short acting, (LOPRESSOR) 100 mg tablet Take 1 tablet by mouth two times a day. ([facility]) - traZODone (DESYREL) 50 mg tablet Take 1 tablet by mouth at bedtime as needed (insomnia). - potassium chloride SR (MICRO-K) 8 mEq cpER Take 2 capsules by mouth once daily. - atorvastatin (LIPITOR) 80 mg tablet Take 1 tablet by mouth once daily. - Lactobacillus acidophilus (PROBIOTIC) 10 billion cell cap Take by mouth. - furosemide (LASIX) 20 mg tablet Take 1 tablet by mouth once daily. - sulfaSALAzine (AZULFIDINE) 500 mg tablet TAKE ONE TABLET BY MOUTH 3 TO 4 TIMES DAILY FOR LICHEN PLANUS, THEN TAPER BACK ON DOSE ABLE WHEN CONTROLLED DIRECTED - Compression Knee Highs KNEE HIGH COMPRESSION STOCKINGS 30-40 MM. DX: EDEMA - VIT C/E/ZN/COPPR/LUTEIN/ZEAXAN (PRESERVISION AREDS 2 ORAL) Take by mouth twice daily. Problem List As Of Date 06/29/2024 Noted Resolved BENIGN HYPERTENSION [I10] 01/11/2007 RESTLESS LEGS SYNDROME [G25.81] 01/11/2007 CYSTOCELE, MIDLINE [N81.11] 07/28/2007 MIXED HYPERLIPIDEMIA [E78.2] 08/03/2007 Lichen planus [L43.9] 05/26/2010 Rash and other nonspecific skin eruption [R21] 05/26/2010 Pruritus [L29.9] 05/26/2010 Proteinuria [R80.9] 06/08/2010 Postinflammatory hyperpigmentation [L81.0] 07/16/2010 Thoracic or lumbosacral neuritis or radiculitis*09/07/2010 Postinflammatory skin changes [R23.8] 02/10/2011 Lichenoid dermatitis [L28.0] 09/18/2011 Lichenoid keratosis [L82.0] 09/18/2011 S/P coronary artery stent placement [Z95.5] 07/15/2015 Obesity, Class I, BMI 30-34.9 [E66.811] 12/28/2016 04/05/2018 PAF (paroxysmal atrial fibrillation) (HCC) [I48*06/22/2018 Renal 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.0] 10/05/2019 01/18/2023 Aortic mural th (more content not included)... Normal [facility] Urinalysis complete panel (U )on 06-29-2024 BACTERIA UL 5265.6 uL High Negative [facility] Comment on above: Order Comment: Speci men Type: URINE SPECIMENOrdering Facility: [facility] Address: [address] [place] [address] Performed By: #### 2 4356-8 ####[facility] LABCLIA [id number] [place] [address] [place] Bilirubin Ql (U) Negative Normal Negative [facility] Comment on above: Order Comment: Speci men Type: URINE SPECIMENOrdering Facility: [facility] Address: [address] [place] [address] Performed By: #### 2 4356-8 ####[facility] LABCLIA [id number] [place] [address] [place] Clarity (Unsp spec) Clear Normal [facility] Comment on above: Order Comment: Speci men Type: URINE SPECIMENOrdering Facility: [facility] Address: [address] [place] [address] Performed By: #### 2 4356-8 ####[facility] LABCLIA [id number] [place] [address] [place] Color (U) [place] Abnormal Yellow [facility] Comment on above: Order Comment: Speci men Type: URINE SPECIMENOrdering Facility: [facility] Address: [address] [place] [address] Performed By: #### 2 4356-8 ####[facility] LABIA [id number] [place] [address] [place] Epithelial cells LM.HPF (Urine sed) [#/Area] Few Normal [facility] Comment on above: Order Comment: Speci men Type: URINE SPECIMENOrdering Facility: [facility] Address: [address] [place] [address] Performed By: #### 2 4356-8 ####[facility] LABCLIA [id number] [place] [address] [place] Glucose Test strip (U) [Mass/Vol] Negative Normal Negative [facility] Comment on above: Order Comment: Speci men Type: URINE SPECIMENOrdering Facility: [facility] Address: [address] [place] [address] Performed By: #### 2 4356-8 ####[facility] LABCLIA [id number] [place] [address] [place] Hemoglobin Ql (U) Trace Abnormal Negative [facility] Comment on above: Order Comment: Speci men Type: URINE SPECIMENOrdering Facility: [facility] Address: [address] [place] [address] Performed By: #### 2 4356-8 ####[facility] LABCLIA [id number] [place] [address] [place] Hyaline casts (Urine sed) [#/Area] 1-3 /LPF Abnormal 0 /LPF [facility] Comment on above: Order Comment: Speci men Type: URINE SPECIMENOrdering Facility: [facility] Address: [address] [place] [address] Performed By: #### 2 4356-8 ####[facility] LABCLIA [id number] [place] [address] [place] Ketones Ql (U) Negative Normal Negative [facility] Comment on above: Order Comment: Speci men Type: URINE SPECIMENOrdering Facility: [facility] Address: [address] [place] [address] Performed By: #### 2 4356-8 ####[facility] LABCLIA [id number] [place] [address] [place] Leukocyte esterase Test strip Ql (U) 3+ Abnormal Negative [facility] Comment on above: Order Comment: Speci men Type: URINE SPECIMENOrdering Facility: [facility] Address: [address] [place] [address] Performed By: #### 2 4356-8 ####[facility] LABCLIA [id number] [place] [id number] [place] Nitrite Ql (U) Negative Normal Negative [facility] Comment on above: Order Comment: Speci men Type: URINE SPECIMENOrdering Facility: [facility] Address: [address] [place] [address] Performed By: #### 2 4356-8 ####[facility] LABCLIA [id number] [place] [address] [place] pH (U) 6.0 [pH] Normal <8.5 [facility] Comment on above: Order Comment: Speci men Type: URINE SPECIMENOrdering Facility: [facility] Address: [address] [place] [address] Performed By: #### 2 4356-8 ####[facility] LABIA [id number] [place] [address] [place] Protein (U) [Mass/Vol] Trace Abnormal Negative [facility] Comment on above: Order Comment: Speci men Type: URINE SPECIMENOrdering Facility: [facility] Address: [address] [place] [address] Performed By: #### 2 4356-8 ####[facility] LABIA [id number] [place] [address] [place] RBC LM.HPF (Urine sed) [#/Area] 0-2 /HPF Normal 0-2 /HPF [facility] Comment on above: Order Comment: Speci men Type: URINE SPECIMENOrdering Facility: [facility] Address: [address] [place] [address] Performed By: #### 2 4356-8 ####[facility] LABIA [id number] [place] [address] [place] Specific gravity (U) [Rel density] 1.013 Normal 1.005-1.03 0 [facility] Comment on above: Order Comment: Speci men Type: URINE SPECIMENOrdering Facility: [facility] Address: [address] [place] [address] Performed By: #### 2 4356-8 ####[facility] LABIA [id number] [place] [address] [place] Urobilinogen Ql (U) 1.0 EU/dL Normal 0.2-1.0 EU/dL [facility] Comment on above: Order Comment: Speci men Type: URINE SPECIMENOrdering Facility: [facility] Address: [address] [place] [address] Performed By: #### 2 4356-8 ####[facility] LABCLIA [id number] [place] [address] [place] WBC LM.HPF (Urine sed) [#/Area] /[HPF] Abnormal 0-5 /HPF [facility] Comment on above: Order Comment: Speci men Type: URINE SPECIMENOrdering Facility: [facility] Address: [address] [place] [address] Performed By: #### 2 4356-8 ####[facility] LABIA [id number] [address] [place] 25(OH)D3 [facility] 2024 25-hydroxyvitamin D3 [Mass/Vol] 23.4 ng/mL Low 31.0-80.0 [facility] Comment on above: Order Comment: Speci men Type: BLOOD SPECIMENOrdering Facility: [facility] Address: [address] [place] [address] Result Comment: Clas sification of 25 OH Vitamin D status: Deficiency/Insufficiency: < or = 30 ng/ml. Sufficiency/Optimal Levels: 31-80 ng/mL Toxicity: > 100 ng/mL. Test performed by chemiluminescent immunoassay. Performed By: #### 1 989-3 ####[facility] LABIA [id number] [place] [address] [place] ALBUMIN/CREATININE RATIO, UR INEon 06-19-2024 Albumin DL <= 20 mg/L (U) [Mass/Vol] 14.5 mg/L Normal [facility] Comment on above: Order Comment: Speci men Type: URINE SPECIMENOrdering Facility: [facility] Address: [address] [place] [address] Performed By: #### U ACR ####[facility] LABCLIA [id number] [place] [address] [place] Albumin/Creatinine (U) [Mass ratio] 28 mg/g Normal <30 [facility] Comment on above: Order Comment: Speci men Type: URINE SPECIMENOrdering Facility: [facility] Address: [address] [place] [address] Result Comment: Adul t Male and Female Nephrotic Criteria: <30 mg/g is considered normal to mildly increased 30-300 mg/g is considered moderately increased >300 mg/g is considered severely increased KDIGO. (2013). KDIGO 2012 Clinical Practice Guideline for the Evaluation and Management of Chronic Kidney Disease. Official Journal of the International Society of Nephrology, 3(1), 1-150. Performed By: #### U ACR ####[facility] LABCLIA [id number] [place] [address] [place] Creatinine (U) [Mass/Vol] 51.6 mg/dL Normal 20.0-300.0 [facility] Comment on above: Order Comment: Speci men Type: URINE SPECIMENOrdering Facility: [facility] Address: [address] [place] [address] Performed By: #### U ACR ####[facility] LABCLIA [id number] [place] [address] [place] CBC W Auto Differential pane l (Bld)on 06-19-2024 Basophils (Bld) [#/Vol] 10*3/uL Normal <0.11 [facility] Comment on above: Order Comment: Speci men Type: BLOOD SPECIMENOrdering Facility: [facility] Address: [address] [place] [address] Performed By: #### 5 7021-8 ####[facility] LABCLIA [id number] [place] [address] [place] Basophils/100 WBC (Bld) 0.2 % Normal [facility] Comment on above: Order Comment: Speci men Type: BLOOD SPECIMENOrdering Facility: [facility] Address: [address] [place] [address] Performed By: #### 5 7021-8 ####[facility] LABCLIA [id number] [place] [address] [place] Differential cell count method Nom (Bld) Auto Normal [facility] Comment on above: Order Comment: Speci men Type: BLOOD SPECIMENOrdering Facility: [facility] Address: [address] [place] [address] Performed By: #### 5 7021-8 ####[facility] LABCLIA [id number] [place] [address] [place] Eosinophils (Bld) [#/Vol] 0.34 10*3/uL Normal <0.46 [facility] Comment on above: Order Comment: Speci men Type: BLOOD SPECIMENOrdering Facility: [facility] Address: [address] [place] [address] Performed By: #### 5 7021-8 ####[facility] LABIA [id number] [place] [address] [place] Eosinophils/100 WBC (Bld) 3.8 % Normal [facility] Comment on above: Order Comment: Speci men Type: BLOOD SPECIMENOrdering Facility: [facility] Address: [address] [place] [address] Performed By: #### 5 7021-8 ####[facility] LABIA [id number] [place] [address] [place] Erythrocyte distribution width (RBC) [Ratio] 14.0 % Normal 11.5-15.0 [facility] Comment on above: Order Comment: Speci men Type: BLOOD SPECIMENOrdering Facility: [facility] Address: [address] [place] [address] Performed By: #### 5 7021-8 ####[facility] LABCLIA [id number] [place] [address] [place] Hematocrit (Bld) [Volume fraction] 40.9 % Normal 36.0-46.0 [facility] Comment on above: Order Comment: Speci men Type: BLOOD SPECIMENOrdering Facility: [facility] Address: [address] [place] [address] Performed By: #### 5 7021-8 ####[facility] LABCLIA [id number] [place] [address] [place] Hemoglobin (Bld) [Mass/Vol] 12.8 g/dL Normal 11.5-15.5 [facility] Comment on above: Order Comment: Speci men Type: BLOOD SPECIMENOrdering Facility: [facility] Address: [address] [place] [address] Performed By: #### 5 7021-8 ####[facility] LABCLIA [id number] [place] [address] [place] Immature granulocytes (Bld) [#/Vol] 10*3/uL Normal <0.10 [facility] Comment on above: Order Comment: Speci men Type: BLOOD SPECIMENOrdering Facility: [facility] Address: [address] [place] [address] Performed By: #### 5 7021-8 ####[facility] LABCLIA [id number] [place] [address] [place] Immature granulocytes/100 WBC (Bld) 0.2 % Normal [facility] Comment on above: Order Comment: Speci men Type: BLOOD SPECIMENOrdering Facility: [facility] Address: [address] [place] [address] Performed By: #### 5 7021-8 ####[facility] LABCLIA [id number] [place] [address] [place] Lymphocytes (Bld) [#/Vol] 2.85 10*3/uL Normal 1.00-4.00 [facility] Comment on above: Order Comment: Speci men Type: BLOOD SPECIMENOrdering Facility: [facility] Address: [address] [place] [address] Performed By: #### 5 7021-8 ####[facility] LABCLIA [id number] [place] [address] [place] Lymphocytes/100 WBC (Bld) 31.7 % Normal [facility] Comment on above: Order Comment: Speci men Type: BLOOD SPECIMENOrdering Facility: [facility] Address: [address] [place] [address] Performed By: #### 5 7021-8 ####[facility] LABIA [id number] [place] [address] [place] MCH (RBC) [Entitic mass] 30.8 pg Normal 26.0-34.0 [facility] Comment on above: Order Comment: Speci men Type: BLOOD SPECIMENOrdering Facility: [facility] Address: [address] [place] [address] Performed By: #### 5 7021-8 ####[facility] LABIA [id number] [place] [address] [place] MCHC (RBC) [Mass/Vol] 31.3 g/dL Normal 30.5-36.0 [facility] Comment on above: Order Comment: Speci men Type: BLOOD SPECIMENOrdering Facility: [facility] Address: [address] [place] [address] Performed By: #### 5 7021-8 ####[facility] LABIA [id number] [place] [address] [place] MCV (RBC) [Entitic vol] 98.6 fL Normal 80.0-100.0 [facility] Comment on above: Order Comment: Speci men Type: BLOOD SPECIMENOrdering Facility: [facility] Address: [address] [place] [address] Performed By: #### 5 7021-8 ####[facility] LABCLIA [id number] [place] [address] [place] Monocytes (Bld) [#/Vol] 0.82 10*3/uL Normal <0.87 [facility] Comment on above: Order Comment: Speci men Type: BLOOD SPECIMENOrdering Facility: [facility] Address: [address] [place] [address] Performed By: #### 5 7021-8 ####[facility] LABCLIA [id number] [place] [id number] [place] Monocytes/100 WBC (Bld) 9.1 % Normal [facility] Comment on above: Order Comment: Speci men Type: BLOOD SPECIMENOrdering Facility: [facility] Address: [address] [place] [address] Performed By: #### 5 7021-8 ####[facility] LABCLIA [id number] [place] [address] [place] Neutrophils (Bld) [#/Vol] 4.94 10*3/uL Normal 1.45-7.50 [facility] Comment on above: Order Comment: Speci men Type: BLOOD SPECIMENOrdering Facility: [facility] Address: [address] [place] [address] Performed By: #### 5 7021-8 ####[facility] LABCLIA [id number] [place] [address] [place] Neutrophils/100 WBC (Bld) 55.0 % Normal [facility] Comment on above: Order Comment: Speci men Type: BLOOD SPECIMENOrdering Facility: [facility] Address: [address] [place] [address] Performed By: #### 5 7021-8 ####[facility] LABCLIA [id number] [place] [id number] [place] Nucleated RBC (Bld) [#/Vol] 10*3/uL Normal <0.01 [facility] Comment on above: Order Comment: Speci men Type: BLOOD SPECIMENOrdering Facility: [facility] Address: [address] [place] [address] Performed By: #### 5 7021-8 ####[facility] LABCLIA [id number] [place] [address] [place] Nucleated RBC/100 WBC (Bld) [Ratio] 0.0 /100 WBC Normal [facility] Comment on above: Order Comment: Speci men Type: BLOOD SPECIMENOrdering Facility: [facility] Address: [address] [place] [address] Performed By: #### 5 7021-8 ####[facility] LABCLIA [id number] [place] [address] [place] Platelet mean volume (Bld) [Entitic vol] 11.6 fL Normal 9.0-12.7 [facility] Comment on above: Order Comment: Speci men Type: BLOOD SPECIMENOrdering Facility: [facility] Address: [address] [place] [address] Performed By: #### 5 7021-8 ####[facility] LABIA [id number] [place] [address] [place] Platelets (Bld) [#/Vol] 213 10*3/uL Normal 150-400 [facility] Comment on above: Order Comment: Speci men Type: BLOOD SPECIMENOrdering Facility: [facility] Address: [address] [place] [address] Performed By: #### 5 7021-8 ####[facility] LABIA [id number] [place] [address] [place] RBC (Bld) [#/Vol] 4.15 10*6/uL Normal 3.90-5.20 [facility] Comment on above: Order Comment: Speci men Type: BLOOD SPECIMENOrdering Facility: [facility] Address: [address] [place] [address] Performed By: #### 5 7021-8 ####[facility] LABCLIA [id number] [place] [address] [place] WBC (Bld) [#/Vol] 8.99 10*3/uL Normal 3.70-11.00 [facility] Comment on above: Order Comment: Speci men Type: BLOOD SPECIMENOrdering Facility: [facility] Address: [address] [place] [address] Performed By: #### 5 7021-8 ####[facility] LABCLIA [id number] [place] [id number] [facility] CNOVon 06-19-2024 CNOV Office Visit (INTMWS ) TASHA SWEET ([id number]) 1935 F Date Time Provider Department 06/19/24 1:00 PM JESSIE HURT INTMWS During your visit today, we recorded the following information about you: Pulse Respiration Blood pressure Weight 76/minute 16/minute 121/77 76 kg Jessie Hurt, REJI.[employer]PUT[employer]ODER 06/19/2024 1:37 PM Signed SUBJECTIVE: RSV Vaccine(1 - 1-dose 75+ series) Never done DTaP,Tdap,Td Vaccine(2 - Td or Tdap) due on 01/11/2017 HbA1C due on 06/15/2024 LDL Cholesterol due on 06/18/2024 HPI Tasha Sweet is a 88 year old female. PMH significant for ACTIVE PROBLEM LIST BENIGN HYPERTENSION Restless Legs Syndrome (Rls) Cystocele, Midline Mixed Hyperlipidemia Lichen Planus Rash and Other Nonspecific Skin Eruption Pruritus Proteinuria Postinflammatory Hyperpigmentation Thoracic Or Lumbosacral Neuritis Or Radiculitis, Unspecified Postinflammatory Skin Changes Lichenoid Dermatitis Lichenoid Keratosis S/P Coronary Artery Stent Placement Paf (Paroxysmal Atrial Fibrillation) (Hcc) Clostridium Difficile Colitis Controlled Type 2 Diabetes Mellitus Without Complication, Without Long-Term Current Use of Insulin (Hcc) Today reports she is feeling very well overall. 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 She is active. Weight is stable. She is not short of breath currently. Just had eye injections both eyes for macular degeneration, seems to be helping. Followed by [facility]. Taking OAC for PAF. No bleeding difficulties noted. Without report of chest pain shortness of breath dizziness lightheadedness palpitations edema. HTN: Without report of headache, chest pain, palpitations, dyspnea, peripheral edema, orthopnea, fatigue, and PND.Last 14 Encounter BP Readings: Date: BP: 06/19/2024 121/77 06/04/2024 134/72 12/14/2023 128/80 09/23/2023 136/74 06/20/2023 143/76 12/17/2022 126/72 06/07/2022 136/82 06/03/2022 128/78 05/26/2022 122/78 10/13/2021 160/88 05/26/2021 122/78 03/21/2021 120/64 03/02/2021 136/70 10/30/2020 132/62 12/14/2023 128/80 DIABETES MELLITUS: Without report of excessive thirst or increased frequency of urination, chest pain or dyspnea , numbness, tingling or pain in extremities, new or unusual visual symptoms, low sugar/hypoglycemic reactions, weight loss/gain, lightheadedness/dizziness, and bowel changes/loose stools. Patient's last HgA1C was Hemoglobin A1C (%) Date Value 06/18/2023 6.8 06/07/2022 7.0 10/30/2020 6.6 03/26/2019 5.6 Hemoglobin A1C (POCT) (%) Date Value 12/14/2023 6.8 ) Review of Systems Constitutional: Negative. Respiratory: Negative. Cardiovascular: Negative. Endocrine: Negative. Objective BP 121/77 Pulse 76 Resp 16 Wt 76 kg (167 lb 8.8 oz) BMI 31.66 kg/m? Physical Exam Vitals and nursing note reviewed. Constitutional: Appearance: Normal appearance. HENT: Head: Normocephalic and atraumatic. Eyes: Conjunctiva/sclera: Conjunctivae normal. Neck: Thyroid: No thyromegaly. Vascular: Normal carotid pulses. No JVD. Cardiovascular: Rate and Rhythm: Normal rate and regular rhythm. Pulses: Carotid pulses are 2+ on the right side and 2+ on the left side. Radial pulses are 2+ on the right side and 2+ on the left side. Pulmonary: Effort: Pulmonary effort is normal. Breath sounds: Normal breath sounds. Abdominal: General: Bowel sounds are normal. Palpations: Abdomen is soft. Musculoskeletal: Right lower leg: No edema. Left lower leg: No edema. Skin: General: Skin is warm and dry. Neurological: General: No focal deficit present. Mental Status: She is alert and oriented to person, place, and time. ALLERGIES Allergen Reactions Codeine Vomiting Lisinopril Cough MEDICATIONS amLODIPine (NORVASC) 5 mg tablet Take 1 tablet by mouth once daily. (Dr. Hernández) apixaban (ELIQUIS) 5 mg tab(s) Take 1 tablet by mouth two times a day. ([facility]) losartan (COZAAR) 25 mg tablet Take 1 tablet by mouth once daily. ([facility]) metoprolol tartrate, short acting, (LOPRESSOR) 100 mg tablet Take 1 tablet by mouth two times a day. ([facility]) potassium chloride SR (MICRO-K) 8 mEq cpER Take 2 capsules by mouth once daily. atorvastatin (LIPITOR) 80 mg tablet Take 1 tablet by mouth once daily. furosemide (LASIX) 20 mg tablet Take 1 tablet by mouth once daily. sulfaSALAzine (AZULFIDINE) 500 mg tablet TAKE ONE TABLET BY MOUTH 3 TO 4 TIMES DAILY FOR LICHEN PLANUS, THEN TAPER BACK ON DOSE ABLE WHEN CONTROLLED DIRECTED VIT C/E/ZN/COPPR/LUTEIN/ZEAXAN (PRESERVISION AREDS 2 ORAL) Take by mouth twice daily. mometasone (ELOCON) 0.1 % cream Apply to affected area once daily. Apply to active or flaring lichen planus area daily until clear . AVOID eyes and eyelids. May us up to 14 days (more content not included)... Normal [facility] Comprehensive metabolic 2000 panelon 06-19-2024 Albumin [Mass/Vol] 4.1 g/dL Normal 3.9-4.9 [facility] Comment on above: Order Comment: Speci men Type: BLOOD SPECIMENOrdering Facility: [facility] Address: [address] [place] [address] [place] [address] Performed By: #### 2 4323-8, LIPNF ####[facility] LABCLIA [id number] [place] [address] [place] ALP [Catalytic activity/Vol] 110 U/L Normal 34-123 [facility] Comment on above: Order Comment: Speci men Type: BLOOD SPECIMENOrdering Facility: [facility] Address: [address] [place] [address] Performed By: #### 2 4323-8, LIPNF ####[facility] LABCLIA [id number] [place] [address] [place] ALT [Catalytic activity/Vol] 15 U/L Normal 7-38 [facility] Comment on above: Order Comment: Speci men Type: BLOOD SPECIMENOrdering Facility: [facility] Address: [address] [place] [address] Performed By: #### 2 4323-8, LIPNF ####[facility] LABCLIA [id number] [place] [address] [place] Anion gap [Moles/Vol] 12 mmol/L Normal 8-15 [facility] Comment on above: Order Comment: Speci men Type: BLOOD SPECIMENOrdering Facility: [facility] Address: [address] [place] [address] Performed By: #### 2 4323-8, LIPNF ####[facility] LABCLIA [id number] [place] [address] [place] AST [Catalytic activity/Vol] 20 U/L Normal 13-35 [facility] Comment on above: Order Comment: Speci men Type: BLOOD SPECIMENOrdering Facility: [facility] Address: [address] [place] [address] Performed By: #### 2 4323-8, LIPNF ####[facility] LABCLIA [id number] [place] [address] [place] Bilirubin [Mass/Vol] 0.5 mg/dL Normal 0.2-1.3 [facility] Comment on above: Order Comment: Speci men Type: BLOOD SPECIMENOrdering Facility: [facility] Address: [address] [place], [place] [id number] Performed By: #### 2 4323-8, LIPNF ####[facility] LABCLIA [id number] [address] [address] [place] Calcium [Mass/Vol] 9.6 mg/dL Normal 8.5-10.2 [facility] Comment on above: Order Comment: Speci men Type: BLOOD SPECIMENOrdering Facility: [facility] Address: [address] [place] [address] Performed By: #### 2 4323-8, LIPNF ####[facility] LABCLIA [id number] [place] [address] [place] Chloride [Moles/Vol] 107 mmol/L Normal 98-107 [facility] Comment on above: Order Comment: Speci men Type: BLOOD SPECIMENOrdering Facility: [facility] Address: [address] [place] [address] Performed By: #### 2 4323-8, LIPNF ####[facility] LABCLIA [id number] [place] [address] [place] CO2 [Moles/Vol] 23 mmol/L Normal 22-30 [facility] Comment on above: Order Comment: Speci men Type: BLOOD SPECIMENOrdering Facility: [facility] Address: [address] [place], [place] [address] Performed By: #### 2 4323-8, LIPNF ####[facility] LABCLIA [id number] [place] [address] [place] Creatinine [Mass/Vol] 1.08 mg/dL High 0.58-0.96 [facility] Comment on above: Order Comment: Speci men Type: BLOOD SPECIMENOrdering Facility: [facility] Address: [address] [place] [address] Performed By: #### 2 4323-8, LIPNF ####[facility] LABCLIA [id number] [place] [address] [place] Creatinine and Glomerular filtration rate.predicted panel (S/P/Bld) 50 mL/min/1.73m??? Low >=60 [facility] Comment on above: Order Comment: Ike mcclendon Type: BLOOD SPECIMENOrdering Facility: [facility] Address: [address] [place] [address] Result Comment: Marcella mated Glomerular Filtration Rate (eGFR) is calculated using the 2020 CKD-EPI creatinine equation. This equation utilizes serum creatinine, sex, and age as parameters. The creatinine assay has traceable calibration to isotope dilution-mass spectrometry. Refer to KDIGO guidelines for clinical interpretation. In patients with unstable renal function, e.g. those with acute kidney injury, the eGFR may not accurately reflect actual GFR. Performed By: #### 2 4323-8, LIPNF ####[facility] LABCLIA [id number] [place] [address] [place] Glucose [Mass/Vol] 108 mg/dL High 74-99 [facility] Comment on above: Order Comment: Ike mcclendon Type: BLOOD SPECIMENOrdering Facility: [facility] Address: [address] [place] [address] Result Comment: The [place] Diabetes Association (ADA) provides guidance for cutoff values for fasting glucose and random glucose. The ADA defines fasting as no caloric intake for at least 8 hours. Fasting plasma glucose results between 100 to 125 mg/dL indicate increased risk for diabetes (prediabetes). Fasting plasma glucose results greater than or equal to 126 mg/dL meet the criteria for diagnosis of diabetes. In the absence of unequivocal hyperglycemia, results should be confirmed by repeat testing. In a patient with classic symptoms of hyperglycemia or hyperglycemic crisis, random plasma glucose results greater than or equal to 200 mg/dL meet the criteria for diagnosis of diabetes. Reference: Standards of Medical Care in Diabetes 2016, [place] Diabetes Association. Diabetes Care. 2016.39(Suppl 1). Performed By: #### 2 4323-8, LIPNF ####[facility] LABCLIA [id number] [place] [address] [place] Potassium [Moles/Vol] 4.1 mmol/L Normal 3.7-5.1 [facility] Comment on above: Order Comment: Speci men Type: BLOOD SPECIMENOrdering Facility: [facility] Address: [address] [place] [address] Performed By: #### 2 4323-8, LIPNF ####[facility] LABIA [id number] [place] [address] [place] Protein [Mass/Vol] 7.0 g/dL Normal 6.3-8.0 [facility] Comment on above: Order Comment: Speci men Type: BLOOD SPECIMENOrdering Facility: [facility] Address: [address] [place] [address] Performed By: #### 2 4323-8, LIPNF ####[facility] LABIA [id number] [place] [address] [place] Sodium [Moles/Vol] 142 mmol/L Normal 136-144 [facility] Comment on above: Order Comment: Speci men Type: BLOOD SPECIMENOrdering Facility: [facility] Address: [address] [place] [address] Performed By: #### 2 4323-8, LIPNF ####[facility] LABIA [id number] [place] [address] [place] Urea nitrogen [Mass/Vol] 22 mg/dL High 7-21 [facility] Comment on above: Order Comment: Speci men Type: BLOOD SPECIMENOrdering Facility: [facility] Address: [address] [place] [address] Performed By: #### 2 4323-8, LIPNF ####[facility] LABCLIA [id number] [place] [address] [place] HbA1c (Bld)on 06-19-2024 Average glucose Estimated from glycated hemoglobin (Bld) [Mass/Vol] 146 mg/dL Normal [facility] Comment on above: Order Comment: Ike mcclendon Type: BLOOD SPECIMENOrdering Facility: [facility] Address: [address] [place] [address] Result Comment: eAG: (Estimated average glucose) is a calculated value from HgbA1c and is branch service representative of the average blood glucose level in the last 2-3 month period. Performed By: #### 5 5454-3 ####[facility] LABCLIA [id number] [place] [address] [place] HbA1c (Bld) [Mass fraction] 6.7 % High 4.3-5.6 [facility] Comment on above: Order Comment: Ike mcclendon Type: BLOOD SPECIMENOrdering Facility: [facility] Address: [address] [place] [address] Result Comment: Amer [place] Diabetes Association guidelines indicate that patients with HgbA1c in the range 5.7-6.4% are at increased risk for development of diabetes, and intervention by lifestyle modification may be beneficial. HgbA1c greater or equal to 6.5% is considered diagnostic of diabetes. Performed By: #### 5 5454-3 ####[facility] LABCLIA [id number] [place] [address] [place] LIPID PANEL, NONFASTINGon Cholesterol [Mass/Vol] 128 mg/dL Normal <200 [facility] Comment on above: Order Comment: Ike mcclendon Type: BLOOD SPECIMENOrdering Facility: [facility] Address: [address] [place] [address] Result Comment: <200 mg/dL, Desirable 200-239 mg/dL, Borderline high >239 mg/dL, High Performed By: #### 2 4323-8, LIPNF ####[facility] LABCLIA [id number] [place] [address] [place] HDL CHOLESTEROL, NF 50 mg/dL Normal >39 [facility] Comment on above: Order Comment: Ike mcclendon Type: BLOOD SPECIMENOrdering Facility: [facility] Address: [address] [place] [address] Result Comment: 40-5 9 mg/dL, Acceptable >59 mg/dL, High: Negative risk factor for coronary heart disease <40 mg/dL, Low: Positive risk factor for coronary heart disease Performed By: #### 2 4323-8, LIPNF ####[facility] LABCLIA [id number] [place] [address] [place] LDL CHOLESTEROL, NF 58 mg/dL Normal <100 [facility] Comment on above: Order Comment: Speci men Type: BLOOD SPECIMENOrdering Facility: [facility] Address: [address] [place] [address] Result Comment: <100 mg/dL, Optimal 100-129 mg/dL, Near optimal/above optimal 130-159 mg/dL, Borderline high 160-189 mg/dL, High >189 mg/dL, Very high Secondary prevention optimal LDL Cholesterol levels are recommended to be < 70 mg/dL Performed By: #### 2 4323-8, LIPNF ####[facility] LABCLIA [id number] [place] [address] [place] LDL/HDL RATIO, NF 1.16 mg/dL Normal <2.54 [facility] Comment on above: Order Comment: Speci men Type: BLOOD SPECIMENOrdering Facility: [facility] Address: [address] [place] [address] Result Comment: Refe rence: 1. National Cholesterol Education Program ATP III Guideline At-A-Glance Quick Desk Reference: National Heart, Lung, and Blood Center. National Institutes of Health. 2001: NIH Publication No. 01-3305. 2. An International Atherosclerosis Society position paper: global recommendations for the management of dyslipidemia: executive summary, Atherosclerosis. 2014: 232(2):410-413. Performed By: #### 2 4323-8, LIPNF ####[facility] LABCLIA [id number] [place] [address] [place] NON HDL CHOL, NF 78 mg/dL Normal <130 [facility] Comment on above: Order Comment: Speci men Type: BLOOD SPECIMENOrdering Facility: [facility] Address: [address] [place] [address] Result Comment: <130 mg/dL, Optimal 130-159 mg/dL, Near optimal/above optimal 160-189 mg/dL, Borderline high 190-219 mg/dL, High >219 mg/dL, Very high Secondary prevention optimal non HDL Cholesterol levels are recommended to be <100 mg/dL Performed By: #### 2 4323-8, LIPNF ####[facility] LABCLIA [id number] [place] [address] [place] T CHOL/HDL RATIO NF 2.56 mg/dL Normal <5.10 [facility] Comment on above: Order Comment: Speci men Type: BLOOD SPECIMENOrdering Facility: [facility] Address: [address] [place] [address] Performed By: #### 2 4323-8, LIPNF ####[facility] LABCLIA [id number] [place] [address] [place] TRIGLYCERIDES, NF 101 mg/dL Normal <150 [facility] Comment on above: Order Comment: Speci men Type: BLOOD SPECIMENOrdering Facility: [facility] Address: [address] [place] [address] Result Comment: <150 mg/dL, Normal 150-199 mg/dL, Borderline high 200-499 mg/dL, High >499 mg/dL, Very high Performed By: #### 2 4323-8, LIPNF ####[facility] LABCLIA [id number] [place] [address] [place] VLDL CHOLESTEROL, NF 20 mg/dL Normal <30 [facility] Comment on above: Order Comment: Speci men Type: BLOOD SPECIMENOrdering Facility: [facility] Address: [address] [place] [address] Performed By: #### 2 4323-8, LIPNF ####[facility] LABCLIA [id number] [address] [place] Urinalysis complete panel (U )on 06-19-2024 Bacteria LM.HPF (Urine sed) [#/Area] Negative Normal Negative [facility] Comment on above: Order Comment: Speci men Type: URINE SPECIMENOrdering Facility: [facility] Address: [address] [place] [address] Performed By: #### 2 4356-8 ####[facility] LABCLIA [id number] [place] [address] [place] Bilirubin Ql (U) Negative Normal Negative [facility] Comment on above: Order Comment: Speci men Type: URINE SPECIMENOrdering Facility: [facility] Address: [address] [place] [address] Performed By: #### 2 4356-8 ####[facility] LABCLIA [id number] [place] [address] [place] Clarity (Unsp spec) Clear Normal Clear [facility] Comment on above: Order Comment: Speci men Type: URINE SPECIMENOrdering Facility: [facility] Address: [address] [place] [address] Performed By: #### 2 4356-8 ####[facility] LABCLIA [id number] [place] [address] [place] Color (U) Yellow Normal Yellow [facility] Comment on above: Order Comment: Speci men Type: URINE SPECIMENOrdering Facility: [facility] Address: [address] [place] [address] Performed By: #### 2 4356-8 ####[facility] LABCLIA [id number] [place] [address] [place] Epithelial cells LM.HPF (Urine sed) [#/Area] None Seen Normal [facility] Comment on above: Order Comment: Speci men Type: URINE SPECIMENOrdering Facility: [facility] Address: [address] [place] [address] Performed By: #### 2 4356-8 ####[facility] LABCLIA [id number] [place] [address] [place] Glucose Test strip (U) [Mass/Vol] Negative Normal Negative [facility] Comment on above: Order Comment: Speci men Type: URINE SPECIMENOrdering Facility: [facility] Address: [address] [place] [address] Performed By: #### 2 4356-8 ####[facility] LABCLIA [id number] [place] [address] [place] Hemoglobin Ql (U) Negative Normal Negative [facility] Comment on above: Order Comment: Speci men Type: URINE SPECIMENOrdering Facility: [facility] Address: [address] [place] [address] Performed By: #### 2 4356-8 ####[facility] LABCLIA [id number] [place] [address] [place] Hyaline casts (Urine sed) [#/Area] 1-3 /LPF Abnormal 0 /LPF [facility] Comment on above: Order Comment: Speci men Type: URINE SPECIMENOrdering Facility: [facility] Address: [address] [place] [address] Performed By: #### 2 4356-8 ####[facility] LABCLIA [id number] [place] [address] [place] Ketones Ql (U) Negative Normal Negative [facility] Comment on above: Order Comment: Speci men Type: URINE SPECIMENOrdering Facility: [facility] Address: [address] [place] [address] Performed By: #### 2 4356-8 ####[facility] LABCLIA [id number] [place] [address] [place] Leukocyte esterase Test strip Ql (U) 1+ Abnormal Negative [facility] Comment on above: Order Comment: Speci men Type: URINE SPECIMENOrdering Facility: [facility] Address: [address] [place] [address] Performed By: #### 2 4356-8 ####[facility] LABCLIA [id number] [place] [address] [place] Nitrite Ql (U) Negative Normal Negative [facility] Comment on above: Order Comment: Speci men Type: URINE SPECIMENOrdering Facility: [facility] Address: [address] [place] [address] Performed By: #### 2 4356-8 ####[facility] LABCLIA [id number] [place] [address] [place] pH (U) 6.0 [pH] Normal <8.5 [facility] Comment on above: Order Comment: Speci men Type: URINE SPECIMENOrdering Facility: [facility] Address: [address] [place] [address] Performed By: #### 2 4356-8 ####[facility] LABCLIA [id number] [place] [address] [place] Protein (U) [Mass/Vol] Negative Normal Negative [facility] Comment on above: Order Comment: Speci men Type: URINE SPECIMENOrdering Facility: [facility] Address: [address] [place] [address] Performed By: #### 2 4356-8 ####[facility] LABCLIA [id number] [place] [address] [place] RBC LM.HPF (Urine sed) [#/Area] 0-2 /HPF Normal 0-2 /HPF [facility] Comment on above: Order Comment: Speci men Type: URINE SPECIMENOrdering Facility: [facility] Address: [address] [place] [address] Performed By: #### 2 4356-8 ####[facility] LABCLIA [id number] [place] [address] [place] Specific gravity (U) [Rel density] 1.012 Normal 1.005-1.03 0 [facility] Comment on above: Order Comment: Speci men Type: URINE SPECIMENOrdering Facility: [facility] Address: [address] [place] [address] Performed By: #### 2 4356-8 ####[facility] LABCLIA [id number] [address] [place] Urobilinogen Ql (U) 0.2 EU/dL Normal 0.2-1.0 EU/dL [facility] Comment on above: Order Comment: Speci men Type: URINE SPECIMENOrdering Facility: [facility] Address: [address] [place] [address] Performed By: #### 2 4356-8 ####[facility] LABCLIA [id number] [address] [place] WBC LM.HPF (Urine sed) [#/Area] 6-10 /HPF Abnormal 0-5 /HPF [facility] Comment on above: Order Comment: Speci men Type: URINE SPECIMENOrdering Facility: [facility] Address: [address] [place] [address] Performed By: #### 2 4356-8 ####[facility] LABCLIA [id number] [place] [address] [place] Bacteria Ur Culton 5 Bacteria identified Cx Nom (U) ORGANISM ID: 1 50,000-<100,000 CFU/ml Proteus mirabilis ORGANISM ID: 1 (PROTEUS MIRABILIS) ANTIBIOTIC INTERPRETATION PATIENCE STATUS REFERENCE RANGE Ampicillin S <=2 F Susceptible <=8 , Intermediate >8 , Resistant >16 Cefazolin S <=4 F Susceptible 0-16 , Intermediate <0 or >16 , Resistant >16 For uncomplicated urinary tract infections, cefazolin results can be used to predict susceptibility or resistance to cephalexin. Ceftriaxone S <=1 F Susceptible <=1 , Intermediate >1 , Resistant >=4 Cefepime S <=1 F Susceptible <=2 , Susceptible-Dose Dependent >2 , Resistant >=16 Ertapenem S <=0.5 F Susceptible <=0.5 , Intermediate >.5 , Resistant >1 Meropenem S <=0.25 F Susceptible <=1 , Intermediate >1 , Resistant >2 Ampicillin/Sulbact S <=2 F Susceptible <=8 , Intermediate >8 , Resistant >16 Piperacillin/Tazobac S <=4 F Susceptible <16 , Susceptible-Dose Dependent >=16 , Resistant >=32 Gentamicin S <=1 F Susceptible <=2 , Intermediate >2 , Resistant >=8 Tobramycin S <=1 F Susceptible <4 , Intermediate >=4 , Resistant >=8 Trimeth sulfameth S <=20 F Susceptible <=40 , Resistant >40 Ciprofloxacin S <=0.25 F Susceptible <0.5 , Intermediate >=.5 , Resistant >=1 Nitrofurantoin R 128 F Susceptible <=32 , Intermediate >32 , Resistant >64 Abnormal [facility] Comment on above: Performed By: #### 6 30-4 ####[facility] PIPPA [id number] [address] [place] CNOVon 06-04-2024 CNOV Office Visit ([facility] ) TASHA SWEET ([id number]) 1935 F Date Time Provider Department 06/04/24 11:40 AM AYANNA PATEL [facility] During your visit today, we recorded the following information about you: Temperature Pulse Blood pressure Weight 97.4 degrees 63/minute 134/72 76.3 kg Ayanna Patel, TIMING INSPECTOR.IOS PROGRAMMER 06/04/2024 12:18 PM Signed CC: Patient presents with: Urinary Frequency: with dysuria and pressure pain in lower pelvic area HPI Tasha Sweet is a 88 year old female who presents with complaint of possible UTI. These symptoms have been present for 4 days. Associated symptoms: burning, urgency, frequency, and pressure Denies: backpain, hematuria, fever, chills, sweats, abdominal pain, frequent or recurrent UTI's, kidney disease Treatments: increasing her fluids and uristat Review of Systems See HPI PAST MEDICAL HISTORY Diagnosis Date Corneal abrasion 08/13/2016 Os Diverticulosis of colon (without mention of hemorrhage) Essential hypertension, benign History of basal cell carcinoma 06/2016 left nasal sidewall Macular degeneration 2014 Personal history of colonic polyps Pure hypercholesterolemia Type II or unspecified type diabetes mellitus without mention of complication, not stated as uncontrolled PAST SURGICAL HISTORY Procedure Laterality Date COLONOSCOPY FLX DX W/COLLJ SPEC WHEN PFRMD 2002 Colonoscopy COLONOSCOPY FLX DX W/COLLJ SPEC WHEN PFRMD 10/28/08 PAST SURGICAL 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 (Dr. Hernández) apixaban (ELIQUIS) 5 mg tab(s) Take 1 tablet by mouth two times a day. ([facility]) losartan (COZAAR) 25 mg tablet Take 1 tablet by mouth once daily. ([facility]) metoprolol tartrate, short acting, (LOPRESSOR) 100 mg tablet Take 1 tablet by mouth two times a day. 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 AVOID eyes and eyelids. May us up to 14 days per rash flare up potassium chloride SR (MICRO-K) 8 mEq cpER Take 2 capsules by mouth once daily. atorvastatin (LIPITOR) 80 mg tablet Take 1 tablet by mouth once daily. furosemide (LASIX) 20 mg tablet Take 1 tablet by mouth once daily. sulfaSALAzine (AZULFIDINE) 500 mg tablet TAKE ONE TABLET BY MOUTH 3 TO 4 TIMES DAILY FOR LICHEN PLANUS, THEN TAPER BACK ON DOSE ABLE WHEN CONTROLLED DIRECTED VIT C/E/ZN/COPPR/LUTEIN/ZEAXAN (PRESERVISION AREDS 2 ORAL) Take by mouth twice daily. traZODone (DESYREL) 50 mg tablet Take 1 tablet by mouth at bedtime as needed (insomnia). (Patient not taking: Reported on 06/04/2024) Lactobacillus acidophilus (PROBIOTIC) 10 billion cell cap Take by mouth. (Patient not taking: Reported on 06/04/2024) Compression Knee Highs KNEE HIGH COMPRESSION STOCKINGS 30-40 MM. DX: EDEMA (Patient not taking: Reported on 12/14/2023) FAMILY HISTORY Problem Relation Age of Onset Diabetes Mother Heart Mother Hypertension Mother Diabetes Daughter Diabetes Daughter Diabetes Maternal Uncle Diabetes Maternal Uncle Diabetes Maternal Uncle Diabetes Maternal Uncle Macular Degen Other aunt Social History Tobacco Use Smoking status: Former Current packs/day: 0.00 Types: Cigarettes Quit date: 05/23/1956 Years since quittin.0 Smokeless tobacco: Never Substance Use Topics Alcohol use: No Drug use: No BP 134/72 Pulse 63 Temp 36.3 ?C (97.4 ?F) (Temporal) Wt 76.3 kg (168 lb 3.4 oz) SpO2 99% BMI 31.78 kg/m? Physical Exam Vitals reviewed. Constitutional: Appearance: Normal appearance. Cardiovascular: Rate and Rhythm: Normal rate. Rhythm irregular. Heart sounds: Normal heart sounds. No murmur heard. Pulmonary: Effort: Pulmonary effort is normal. Breath sounds: Normal breath sounds. No wheezing, rhonchi or rales. Abdominal: General: There is no distension. Palpations: There is no mass. Tenderness: There is abdominal tenderness (suprapubic, mild). There is no right CVA tenderness, left CVA tenderness, guarding or rebound. Neurological: Mental Status: She is alert. DATA REVIEWED: Most recent labs ASSESSMENT/PLAN: 1. Dysuria - ICD9: 788.1, ICD10: R30.0 Acute onset. Patient unable to provide urine sample in the office - send BACTERIAL CULTURE, URINE in the lab - start presumptive treatment with Keflex, see orders - follow-up in 2-3 days if no improvement or sooner if worsening Prescription instructions reviewed with patient as applicable. Potential red flag symptoms discusse (more content not included)... Normal [facility] Abd Aortic/IVC Duplex scanon 03-19-2024 Abd Aortic/IVC Duplex scan [facility] [address] [place] [address] Abd Aortic/IVC Duplex scan 03/19/24 0901 MR#: [id number] Acct: [id number] Name: TASHA SWEET Rep #: [id number] : 1935 88 From: Lonnie Melendez MD Attending Dr: Dr. Rick Bermudez MD Status: REG CLI Ordering Dr: Rick Bermudez MD Date: 03/19/24 Location: [facility] Sex: F C Admitted: Reason For Study: AAA Screening Aorta Measurements Aorta Doppler Measurements Proximal aorta measures1.46 x 1.67cm. in cross- Peak systolic flow velocities within the proximal sectional axis. aorta measure 92.2 cm/sec. Proximal aorta measures1.46cm. in longitudinal Peak systolic flow velocities within the mid aorta axis. measure 137.1 cm/sec. Mid aorta measures1.42 x 1.49cm. in cross- Peak systolic flow velocities within the distal sectional axis. aorta measure 152.6 cm/sec. Mid aorta measures1.40cm. in longitudinal axis. Distal aorta measures1.52 x 1.47cm. in cross- sectional axis. Distal aorta measures1.52cm. in longitudinal axis. Left Iliac Artery Left iliac artery measures 0.84 x 0.84 cm. in the cross-sectional axis. Left iliac artery measures 0.86 cm. in the longitudinal axis. Peak systolic velocity in the left iliac artery measures 113.8 cm/sec. Right Iliac Artery Right iliac artery measures 0.78 x 0.74 cm. in the cross-sectional axis. Right iliac artery measures 0.76 cm. in the longitudinal axis. Peak systolic velocity in the right iliac artery measures 134.5 cm/sec. VL/Abd Aortic/IVC Duplex scan Interpretation Summary Aorta patent, normal caliber Bilateral iliac arteries patent, normal caliber Ordering Physician: Rick Bermudez Referring Physician: Jadyn Bowden Performed By: Stalin Segura, [facility] 03/19/24 1620 Date ____ Lonnie Melendez MD CC: Dr. Rick Bermudez MD; Dr. Jadyn Bowden MD Date Dictated: 03/19/24900 Date Transcribed: 03/19/241619 Senior Field Service Engineer: Signed Normal [facility] Echo Completeon 03-02-2024 Echo Complete [facility] [address] [place] [address] Echo Complete 03/02/24 1032 MR#: [id number] Acct: [id number] Name: TASHA SWEET Rep #: [id number] : 1935 88 From: Rick Bermudez MD Attending Dr: Dr. Rick Bermudez MD Status: REG CLI Ordering Dr: Rick Bermudez MD Date: 03/02/24 Location: [facility] Sex: F C Admitted: Reason For Study: CHEST PAIN Procedure This was a 2D Doppler, Color Flow transthoracic echocardiogram. Exam performed in department. Left Ventricle Normal LV size. Mild concentric left ventricular hypertrophy. The left ventricular ejection fraction is 65 %. Unable to assess diastolic dysfunction due to arrhythmia. Right Ventricle Normal right ventricle. Atria There is severe biatrial dilatation. Mitral Valve Mild (1+) mitral valve insufficiency. Tricuspid Valve Moderate (2+) tricuspid valve insufficiency. Right ventricular systolic pressure estimated to be 64 mmHg. Aortic Valve Mild diffuse aortic valve calcification. Mild aortic valve stenosis. Mean peak gradient 8 mmHg. Mild to moderate aortic valve regurgitation. Pulmonic Valve The pulmonic valve is not well visualized. Mild (1+) pulmonic valve insufficiency. Great Vessels Mildly dilated aortic root. Pericardium/Pleural No pericardial effusion. MMode/2D Measurements Calculations LVIDd: 3.6 cm IVSd: 1.2 cm LVOT diam: 2.1 cm LVIDs: 2.5 cm LVPWd: 1.2 cm LVOT area: 3.3 cm2 RVDd: 3.2 cm FS: 29.6 % Ao root diam: 3.9 cm LAV(MOD-bp): 44.7 ml LVAd ap4: 15.0 cm2 LAV(MOD-bp) Indexed: 25.8 ml/m2 LVLd ap4: 6.1 cm LAV(MOD-sp2): 47.8 ml EDV(MOD-sp4): 31.7 ml LAV(MOD-sp4): 43.2 ml EDV(sp4-el): 31.6 ml LVAs ap4: 8.8 cm2 LVLs ap4: 5.3 cm ESV(MOD-sp4): 14.0 ml ESV(sp4-el): 12.5 ml EF(MOD-sp4): 55.7 % EF(sp4-el): 60.5 % SV(MOD-sp4): 17.7 ml SV(sp4-el): 19.1 ml LA A4 area: 17.0 cm2 LA dimension(2D): 4.0 cm RA A4 area: 15.5 cm2 Doppler Measurements Calculations MV E max joaquim: 125.7 cm/sec Ao V2 max: 195.1 cm/sec AI max joaquim: 381.0 cm/sec Ao max P.2 mmHg AI max P.1 mmHg Ao V2 mean: 133.1 cm/sec Ao mean P.2 mmHg AI dec slope: 203.2 cm/sec2 Ao V2 VTI: 44.4 cm AI P1/2t: 549.3 msec AV (velocity ratio): 0.94 DANIEL(I,D): 3.1 cm2 DANIEL(V,D): 3.0 cm2 LV V1 max: 174.2 cm/sec SV(LVOT): 138.6 ml PA V2 max: 80.3 cm/sec LV V1 max P.2 mmHg PA max PG (full): 0.23 mmHg LV V1 mean P.7 mmHg PA V2 mean: 61.9 cm/sec LV V1 mean: 120.0 cm/sec PA mean PG (full): 0.44 mmHg LV V1 VTI: 41.6 cm PI end-d joaquim: 141.7 cm/sec TR max joaquim: 385.0 cm/sec TR max P.3 mmHg ECHO/Echo Complete Interpretation Summary Mild concentric left ventricular hypertrophy. The left ventricular ejection fraction is 65 %. There is severe biatrial dilatation. Moderate (2+) tricuspid valve insufficiency. Right ventricular systolic pressure estimated to be 64 mmHg. Severe pulmonary hypertension. Mild aortic valve stenosis. Mean peak gradient 8 mmHg. Mild to moderate aortic valve regurgitation. Mild (1+) pulmonic valve insufficiency. Mildly dilated aortic root. Ordering Physician: Rick Bermudez Referring Physician: Rick Bermudez Performed By: Stella Ray RCS 03/02/24 1220 Date ____ Rick Bermudez MD CC: Dr. Rick Bermudez MD; Dr. Jadyn Bowden MD Date Dictated: 03/02/24 1032 Date Transcribed: 03/02/24 1220 Senior Field Service Engineer: Signed Normal [facility] Stress Reporton 03-02-2024 Stress Report [facility] [address] [place] [address] MR#: [id number] Acct: [id number] Name: TASHA SWEET Rep #: [id number] : 1935 88 From: Rick Bermudez MD Primary Care: Dr. Jadyn Bowden MD Status: REG CLI Referring Dr: Rick Bermudez MD Sex: F C Stress Test Report Date: 03/02/2024 Procedure: Pharmacologic stress nuclear imaging study Indications: Chest pain Consent: Per the patient Procedure: The patient underwent pharmacologic (Regadenoson 0.4mg ) evaluation with a peak heart rate of 97 beats per minute (73%predicted maximal heart rate) and a peak blood pressure of 144/88 mmHg. The baseline ECG demonstrated sinus rhythm with nonspecific ST changes. The peak pharmacologic ECG demonstrated no diagnostic ischemic changes. There were no cardiac dysrhythmias pretest, during pharmacologic infusion, or recovery. There was no complaint of chest discomfort during pharmacologic infusion or recovery. The patient was injected with 11.9 millicuries of technetium 99m Cardiolite and subsequently rest SPECT Cardiolite nuclear imaging was obtained in the horizontal long, vertical long, and short axis views. The patient underwent pharmacologic (Regadenoson) evaluation. The patient was injected with 33.5 millicuries of technetium 99m Cardiolite and subsequently stress SPECT Cardiolite nuclear imaging was obtained in the horizontal long, vertical long, and short axis views. A gated Cardiolite study at peak stress was obtained. The examination was stopped secondary to completion of protocol. Rest and stress SPECT Cardiolite nuclear imaging status post realignment, normalization, and attenuation correction demonstrate no fixed or reversible perfusion defects. There is end systolic thickening and brightening. The gated Cardiolite study demonstrates myocardial thickening and inward wall motion. The reported LVEF is 89%. Impression: 1. Pharmacologic (Regadenoson) evaluation 2. Peak pharmacologic ECG with no diagnostic ischemic changes. 3. There were no cardiac dysrhythmias pretest, during pharmacologic infusion, or recovery. 5. Rest and stress SPECT Cardiolite nuclear imaging demonstrate relative uniform tracer uptake and myocardial perfusion appearing within normal limits. 6. The gated Cardiolite study reports an LVEF of 89%. This note was generated with [employer] Studio[employer] software. It may contain incorrect words, spelling, and punctuation that were not noted in checking the note before signing. 03/02/24 1011 Date ____ Rick Bermudez MD CC: Dr. Rick Bermudez MD; Dr. Jadyn Bowden MD Date Dictated: 03/02/241008 Date Transcribed: 03/02/241008 Senior Field Service Engineer: ASAF Signed Normal [facility] Comprehensive Metabolic Prof ludmila 02-17-2024 Albumin [Mass/Vol] 3.4 g/dL Normal 3.2-5.0 [facility] Comment on above: Performed By: #### L 500.4050, L500.4100 #### [facility] [address] [place], [address] Albumin/Globulin [Mass ratio] 0.9 {ratio} Normal 0.9-2.4 [facility] Comment on above: Performed By: #### L 500.4050, L500.4100 #### [facility] [address] [place], [address] ALK P 112 U/L Normal 45-117 [facility] Comment on above: Performed By: #### L 500.4050, L500.4100 #### [facility] [address] [place], [address] ALT [Catalytic activity/Vol] 21 U/L Normal 13-56 [facility] Comment on above: Performed By: #### L 500.4050, L500.4100 #### [facility] [address] [place], [address] AST [Catalytic activity/Vol] 16 U/L Normal 15-37 [facility] Comment on above: Performed By: #### L 500.4050, L500.4100 #### [facility] [address] [place], [address] Bilirubin [Mass/Vol] 1.60 mg/dL High 0.20-1.00 [facility] Comment on above: Result Comment: For patients on eltrombopag therapy, use of Dimension [place] TBIL is not recommended. Performed By: #### L 500.4050, L500.4100 #### [facility] [address] [place], [address] BUN/CRE 16.4 RATIO Normal 10-20 [facility] Comment on above: Performed By: #### L 500.4050, L500.4100 #### [facility] [address] [place], [address] CA,Total 9.2 mg/dL Normal 8.5-10.1 [facility] Comment on above: Performed By: #### L 500.4050, L500.4100 #### [facility] [address] [place], [address] Chloride [Moles/Vol] 108 mmol/L High 98-107 [facility] Comment on above: Performed By: #### L 500.4050, L500.4100 #### [facility] [address] [place], [address] CO2 [Moles/Vol] 25.0 mmol/L Normal 21.0-32.0 [facility] Comment on above: Performed By: #### L 500.4050, L500.4100 #### [facility] [address] [place], [address] Creatinine [Mass/Vol] 1.28 mg/dL High 0.55-1.02 [facility] Comment on above: Result Comment: The validity of the calculated GFR GFRAA in patients over 70 years has not been determined. Clinical correlation is essential. Performed By: #### L 500.4050, L500.4100 #### [facility] [address] [place], [address] EST GFR - AA 51 mL/min Low >60 [facility] Comment on above: Result Comment: Afri can Swiss GFR Calc Performed By: #### L 500.4050, L500.4100 #### [facility] [address] [place], [address] GAP 7 Normal 5-15 [facility] Comment on above: Performed By: #### L 500.4050, L500.4100 #### [facility] [address] [place], [address] GFR/1.73 sq M.predicted among non-blacks MDRD (S/P/Bld) [Vol rate/Area] 42 mL/min/{1.73_m2} Low >60 [facility] Comment on above: Result Comment: Non- GFR Calc Performed By: #### L 500.4050, L500.4100 #### [facility] [address] [place], [address] Globulin (S) [Mass/Vol] 3.9 g/dL Normal 2.2-4.2 [facility] Comment on above: Performed By: #### L 500.4050, L500.4100 #### [facility] [address] [place], [address] Glucose [Mass/Vol] 138 mg/dL High 74-106 [facility] Comment on above: Result Comment: Fast ing Glucose result greater than or equal to 126 mg/dL suggests DIABETES MELLITUS per A.D.A. criteria. Performed By: #### L 500.4050, L500.4100 #### [facility] [address] [place], [address] Potassium [Moles/Vol] 3.7 mmol/L Normal 3.5-5.1 [facility] Comment on above: Performed By: #### L 500.4050, L500.4100 #### [facility] [address] [place], [address] Sodium [Moles/Vol] 140 mmol/L Normal 136-145 [facility] Comment on above: Performed By: #### L 500.4050, L500.4100 #### [facility] [address] [place], [address] T PROT 7.3 g/dL Normal 6.4-8.2 [facility] Comment on above: Performed By: #### L 500.4050, L500.4100 #### [facility] [address] [place], [address] Urea nitrogen [Mass/Vol] 21 mg/dL High 7-18 [facility] Comment on above: Performed By: #### L 500.4050, L500.4100 #### [facility] [address] [place], [address] Lipid Profileon 02-17-2024 Cholesterol [Mass/Vol] 117 mg/dL Normal 200 [facility] Comment on above: Result Comment: <200 mg/dL Desirable 200-240 mg/dL Borderline >240 mg/dL High Risk Performed By: #### L 500.4050, L500.4100 #### [facility] [address] [place], [address] Cholesterol in HDL [Mass/Vol] 53 mg/dL Normal [facility] Comment on above: Result Comment: The drugs N-Acetylcysteine and Metamizole may falsely depress this assay. Reference Range HDL <40 mg/dL Low HDL Cholesterol HDL >or= 60 mg/dL High HDL Cholesterol Performed By: #### L 500.4050, L500.4100 #### [facility] [address] [place], [address] Cholesterol in LDL [Mass/Vol] 49 mg/dL Normal 0-130 [facility] Comment on above: Performed By: #### L 500.4050, L500.4100 #### [facility] [address] [place], [address] Cholesterol in VLDL [Mass/Vol] 15 mg/dL Normal 5-40 [facility] Comment on above: Performed By: #### L 500.4050, L500.4100 #### [facility] [address] [place], [address] Triglyceride [Mass/Vol] 77 mg/dL Normal [facility] Comment on above: Result Comment: The drugs N-Acetylcysteine and Metamizole may falsely depress this assay. Serum Triglycerides Reference Interval Normal <150 mg/dL Borderline high 150 - 199 mg/dL High 200 - 499 mg/dL Very High > or = 500 mg/dL Performed By: #### L 500.4050, L500.4100 #### [facility] [address] [place], [place], [address] Cardiology Visit Reporton Cardiology Visit Report [facility] [address] [place], [place] [address] OFFICE VISIT Date of Service: 02/16/24 MR#: [id number] Acct: [id number] Name: TASHA SWEET Rep #: [id number] : 1935 Provider: Dr. Rick Bermudez MD Age/Sex: 88/F Location: [facility] Status: Signed HPI HPI History of Present Illness Details: This lady has past medical history significant for coronary artery disease status post SC, status post PCI and drug-eluting stent to the RCA. Also history of hypertension, dyslipidemia and paroxysmal atrial fibrillation. Patient comes in for routine follow-up visit. According to her, she has been getting increasingly short of breath with exertion. Denies orthopnea or PND. No ankle edema. Denies any chest pain or tightness. Patient is tolerating her apixaban well and denies any abnormal bleeding. 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 Accompanied by: Daughter Is patient in pain?: No Allergies codeine Adverse Reaction (Verified 02/16/24 10:48) Nausea lisinopril Adverse Reaction (Verified 02/16/24 10:48) Cough Medications ???Medication ???Instructions ???Recorded ???Confirmed ???Type cyanocobalamin (vitamin B-12) 1,000 mcg PO DAILY SUPPLEMENT 05/06/20 09/26/24 History 1,000 mcg tablet sulfasalazine 500 mg tablet 500 mg PO Q6H PRN PRN SKIN 09/26/19 02/16/24 History amlodipine 5 mg tablet 5 mg PO DAILY #90 tabs 11/11/23 02/16/24 Rx losartan 25 mg tablet 25 mg PO DAILY #90 tabs 11/11/23 02/16/24 Rx potassium chloride 8 mEq 8 meq PO DAILY #90 caps 11/11/23 02/16/24 Rx capsule,extended release atorvastatin 80 mg tablet 80 mg PO QHS #90 tabs 12/13/23 02/16/24 Rx furosemide 20 mg tablet 20 mg PO DAILY #90 tabs 12/13/23 02/16/24 Rx apixaban 5 mg tablet 5 mg PO BID #60 tabs 12/26/23 02/16/24 Rx metoprolol tartrate 100 mg tablet 100 mg PO BID heart #180 tabs 01/11/24 02/16/24 Rx cholecalciferol (vitamin D3) 25 5,000 unit PO DAILY PRN SUPPLEMENT 02/16/24 02/16/24 History mcg (1,000 unit) tablet vitamins A,C,Q-jsgr-rijhzf 4,296 1 cap PO QDAY 02/16/24 02/16/24 History mcg-226 mg-90 mg capsule (PreserVision AREDS) Ejection fraction %: 55 Have you fallen in the past year?: No PFSH Medical History Atherosclerotic heart disease of [place] coronary artery without angina pectoris Diabetes mellitus type II, controlled Diverticulosis Essential hypertension History of basal cell carcinoma History of non-ST elevation myocardial infarction (NSTEMI) Internal bleeding hemorrhoids Lichen planus Macular degeneration PAF (paroxysmal atrial fibrillation) Presence of stent in coronary artery ( 06/20/15) Pure hypercholesterolemia Rectal bleeding Shortness of breath Urinary retention Surgical History History of bilateral oophorectomy History of colonoscopy ( 09/2019) History of hemorrhoidectomy ( 10/2019) History of repair of rotator cuff History of total hysterectomy Presence of coronary angioplasty implant and graft ( 06/20/15) Family History Mother Hypertension Heart disease Diabetes Father Diabetes Hypertension Sister Hypertension Diabetes Sister Diabetes Hypertension Sister Diabetes Hypertension Sister Diabetes Hypertension Social History Smoking Status: Never smoker alcohol intake: never substance use type: does not use caffeine: No ROS Const Const: Positive for fatigue (minimal); Negative for weakness, headache(s) or weight gain ENT ENT: Positive for balance problems (seldom); Negative for headache(s), dizziness or Nosebleed/epistaxis Cardio Chest Pain: Yes Frequency: other (seldom) Character: sharp Onset: at rest and exercise Location: mid sternal Duration: brief Palpitations: No Edema: Bilateral (in the heat per pt) Muscle aches with walking: None Resp Respiratory: Positive for SOB with activity and SOB at rest; Negative for SOB orthopnea SOB lying down GI GI: Negative nausea, vomiting or heartburn Musc Musc: Positive for balance problems (seldom); Negative for muscle aches/ myalgia, muscle weakness or joint pain Neuro Neuro: Negative for dizziness, lightheadedness, near syncope, syncope, headache(s) or weakness Endo Endo: Positive for fatigue (minimal) Cardiology Exam Const Appearance: comfortable and no acute distress Nutritional Appearance: well nourished Neck Neck (more content not included)... Normal [facility] 12-19-2023 [facility] Telephone (INTMWS) TASHA SWEET ([id number]) 1935 F Date Time Provider Department 12/19/23 JADYN BOWDEN INTWS During your visit today, we recorded the following information about you: Marcelina Stark LPN 12/19/2023 2:42 PM Signed Patient calling asking for the results of her lab work and her lung studies. She is having problems with her my chart (tablet) so can not look it up right now. Latest Ref Rng 12/14/2023 Creatinine, Ur Random (UCRR) 20.0 - 300.0 mg/dL 24.5 Albumin, Urine Random mg/L 19.9 Albumin/Creat Ratio <30 mg/g 81 (H) Hemoglobin A1C (POCT) 4.3 - 5.6 % 6.8 ! Legend: (H) High ! Abnormal did not put in lung studies since 3 and they are long. Please advise Jadyn Bowden MD 12/19/2023 8:48 PM Signed Hemoglobin A1C (%) Date Value 06/18/2023 6.8 06/07/2022 7.0 10/30/2020 6.6 03/26/2019 5.6 10/27/2018 5.7 03/27/2018 5.7 02/18/2017 5.9 Hemoglobin A1C (POCT) (%) Date Value 12/14/2023 6.8 HgA1C is stable at 6.8--good. UACR shows leaking some protein through kidneys--make sure to stay hydrated. Recommend continue efforts at controlling blood sugars and blood pressures. Will check UACR and UWMIC when gets next set of labs to verify if having progressively increasing UACR (last time was 47; prior unremarkable) Spirometry (lung tests) normal. No COPD. Response to bronchodilators was negative (did not help; seems that smaller airways had decreased flow after medication was given. Hyperinflation and air trapping noted, but report indicated that the test might not be valid. Diffusion capacity normal (getting oxygen from air sacs into blood stream normal. So even though there is air trapping and hyperinflation as was seen in the CXR, she does not have COPD and does not look like has emphysema.. If has any further issues with SOB or COELLO, would refer to field administrative assistant to decide whether needs further testing. For now, test does not show evidence of asthma, COPD or emphysema. Marcelina Stark LPN 12/20/2023 8:27 AM Signed Phoned patient left message to return call and ask to speak to a nurse for results. Fiordaliza Whitley RN 12/20/2023 8:31 AM Signed Patient notified of results and provider's instructions. Patient verbalizes understanding. Fiordaliza Whitley RN Allergies As of Date: 12/19/2023 Noted Allergy Reaction CODEINE 09/12/2007 11 - Vomiting LISINOPRIL 11/25/2010 3 - Cough Date Reviewed: 12/14/2023 Reviewed by: Jadyn Bowden MD - Fully Assessed Reason for Visit: results of labs and lung studies [Other] Primary Visit Diagnosis:Microalbuminuria [R80.9] Order(s):ALBUMIN/CREATININE RATIO, URINE [SQUACR] Order #: [id number] FUTURE URINALYSIS, WITH MICROSCOPIC [SQUAWMIC] Order #: [id number] FUTURE Prescriptions as of 12/20/2023 - amLODIPine (NORVASC) 5 mg tablet Take 1 tablet by mouth once daily. (Dr. Hernández) - apixaban (ELIQUIS) 5 mg tab(s) Take 1 tablet by mouth two times a day. ([facility]) - losartan (COZAAR) 25 mg tablet Take 1 tablet by mouth once daily. ([facility]) - metoprolol tartrate, short acting, (LOPRESSOR) 100 mg tablet Take 1 tablet by mouth two times a day. ([facility]) - hydrocortisone valerate (WESTCORT) 0.2 % cream Apply to active or flaring lichen planus area daily until clear . AVOID eyes and eyelids. May us up to 14 days per rash flare up - traZODone (DESYREL) 50 mg tablet Take 1 tablet by mouth at bedtime as needed (insomnia). - potassium chloride SR (MICRO-K) 8 mEq cpER Take 2 capsules by mouth once daily. - atorvastatin (LIPITOR) 80 mg tablet Take 1 tablet by mouth once daily. - Lactobacillus acidophilus (PROBIOTIC) 10 billion cell cap Take by mouth. - furosemide (LASIX) 20 mg tablet Take 1 tablet by mouth once daily. - sulfaSALAzine (AZULFIDINE) 500 mg tablet TAKE ONE TABLET BY MOUTH 3 TO 4 TIMES DAILY FOR LICHEN PLANUS, THEN TAPER BACK ON DOSE ABLE WHEN CONTROLLED DIRECTED - Compression Knee Highs KNEE HIGH COMPRESSION STOCKINGS 30-40 MM. DX: EDEMA - VIT C/E/ZN/COPPR/LUTEIN/ZEAXAN (PRESERVISION AREDS 2 ORAL) Take by mouth twice daily. Problem List As Of Date 12/19/2023 Noted Resolved BENIGN HYPERTENSION [I10] 01/11/2007 RESTLESS LEGS SYNDROME [G25.81] 01/11/2007 CYSTOCELE, MIDLINE [N81.11] 07/28/2007 MIXED HYPERLIPIDEMIA [E78.2] 08/03/2007 Lichen planus [L43.9] 05/26/2010 Rash and other nonspecific skin eruption [R21] 05/26/2010 Pruritus [L29.9] 05/26/2010 Proteinuria [R80.9] 06/08/2010 Postinflammatory hyperpigmentation [L81.0] 07/16/2010 Thoracic or lumbosacral neuritis or radiculitis*09/07/2010 Postinflammatory skin changes [R23.8] 02/10/2011 Lichenoid dermatitis [L28.0] 09/18/2011 Lichenoid keratosis [L82.0] 09/18/2011 S/P coronary artery stent placement [Z95.5] 07/15/2015 Obesity, Class I, BMI 30-34.9 [E66.9] 12/28/2016 04/05/2018 PAF (par (more content not included)... 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 TGV repeatable x 2. PRE-BRONCHODILATOR: The two largest FVCs were repeatable. The two largest FEV1s were repeatable. Extrapolated volume greater than ATS/ERS allows; FEV1 may not be valid. 2 puffs Albuterol (180 mcg) delivered by MDI via holding chamber. HR pre = 62/min, HR post = 62 /min. POST-BRONCHODILATOR: Current ATS/ERS acceptability and repeatability standards for spirometry met. Start of test and EOFE criteria met. IMPRESSION: Spirometry is normal. Negative bronchodilator response. Lung volumes (FRC and/or RV) are elevated indicating hyperinflation and air trapping, although they may not be valid. See RT comments. The diffusion capacity (uncorrected for hemoglobin) is normal. Electronically Signed On 12-16-2023 12:57:58 EDT by Leny Stone MD ID: [id number] Name: TASHA SWEET Race: White Ht: 61.00 in Wt: 169.00 lbs Age: 88 Gender: Female : 1935 Dx: Other forms of dyspnea Smoking Hx: Non-smoker Doctor: JADYN BOWDEN Test Date: 12/15/2023 Site: Tech: Alex Villavicencio PRE-BRONCH POST-BRONCH Pre LLN Pred ULN %Pred Post %Pred %Chg SPIROMETRY FVC (L) 2.13 1.44 2.13 2.84 99 2.17 101 2 FEV1 (L) 1.69 1.07 1.61 2.12 104 1.65 102 -2 FEV1/FVC 0.80 0.63 0.78 0.90 102 0.76 97 -4 PEF L/s (L/sec) 3.58 1.92 3.48 5.03 103 6.05 173 68 FEF50 (L/sec) 3.03 0.81 2.42 4.03 125 3.31 137 9 FIF50 (L/sec) 1.85 3.01 62 FEF50/FIF50 1.64 90-100 1.10 -32 FIVC (L) 1.93 2.07 7 LTC85-26 (L/sec) 2.14 0.48 1.26 2.50 170 1.50 119 -29 Time (sec) 3.97 6.63 67 FET PEF (sec) 0.19 0.08 -56 ORALIA (L) 0.12 0.08 -37 Vol Extrap % (%) 6 4 -38 LUNG VOLUMES TGV (L) 3.56 1.81 2.67 3.53 133 ERV (L) 0.26 0.71 36 RV (Pleth) (L) 3.48 1.78 2.41 3.03 144 SVC (L) 2.10 1.44 2.13 2.84 98 IC (L) 1.82 1.42 128 TLC (Pleth) (L) 5.51 3.72 4.60 5.49 119 RV/TLC (Pleth) (%) 63 42 51 60 123 LUNG DIFFUSION DLCOunc (ml/min/mmHg) 13.02 11.09 17.26 23.43 75 VA (L) 4.00 3.47 4.57 5.67 87 DLunc/VA (ml/min/mmHg/L) 3.26 2.82 4.14 5.45 78 BHT (sec) 11.17 IVC (L) 2.06 Comments: Current ATS/ERS acceptability and repeatability standards for DLCO met with 2 acceptable maneuvers. TGV repeatable x 2. PRE-BRONCHODILATOR: The two largest FVCs were repeatable. The two largest FEV1s were repeatable. Extrapolated volume greater than ATS/ERS allows; FEV1 may not be valid. 2 puffs Albuterol (180 mcg) delivered by MDI via holding chamber. HR pre = 62/min, HR post = 62 /min. POST-BRONCHODILATOR: Current ATS/ERS acceptability and repeatability standards for spirometry met. Start of test and EOFE criteria met. PULMONARY FUNCTION LAB [facility] SPIROMETRY - BASELINE AND PO [facility] DLCO (ml/min/mmHg) 13.02 ml/min/mm H g [facility] DLCO/VA (ml/min/mmHg/L) 3.26 ml/min/mmH g/L [facility] ERV BOX (L) 0.[address] [facility] TMW86-20% POST (L/S) 1.50 L/S [facility] HVJ97-01% PRE (L/S) 2.14 L/S [facility] FEV1 PRE (L) 1.[address] [facility] FEV1/FVC POST (%) 76 % [facility] FEV1/FVC PRE (%) 80 % [facility] FEV1_POST (L) 1.[address] [facility] FRC Box (L) 3.[address] [facility] FVC POST (L) 2.[address] [facility] FVC PRE (L) 2.[address] [facility] IC BOX (L) 1.[address] [facility] PEF POST (L/S) 6.05 L/S [facility] PEF PRE (L/S) 3.58 L/S [facility] RV Box (L) 3.[address] [facility] RV/TLC Box (%) 63 % [facility] TLC Box (L) 5.[address] [facility] VA (L) 4.[address] [facility] VC (L) BOX 2.[address] [facility] ALBUMIN/CREATININE RATIO, UR INEon 12-15-2023 Albumin DL <= 20 mg/L (U) [Mass/Vol] 19.9 mg/L [facility] Albumin/Creatinine (U) [Mass ratio] 81 mg/g High NINF - 30 mg/g [facility] Comment on above: Adult Male and Femal e Nephrotic Criteria: <30 mg/g is considered normal to mildly increased 30-300 mg/g is considered moderately increased >300 mg/g is considered severely increased KDIGO. (2013). KDIGO 2012 Clinical Practice Guideline for the Evaluation and Management of Chronic Kidney Disease. Official Journal of the International Society of Nephrology, 3(1), 1-150. Creatinine (U) [Mass/Vol] 24.5 mg/dL 20.0 - 300.0 mg/dL [facility] Interpretation and review of laboratory results Abnormal [facility] ALBUMIN/CREATININE RATIO, UR INEon 12-14-2023 Albumin DL <= 20 mg/L (U) [Mass/Vol] 19.9 mg/L Normal [facility] Comment on above: Order Comment: Speci men Type: URINE SPECIMENOrdering Facility: [facility] Address: [address] [place] [address] Performed By: #### U ACR ####[facility] LABCLIA [id number] [address] STATES OF [facility] Albumin/Creatinine (U) [Mass ratio] 81 mg/g High <30 [facility] Comment on above: Order Comment: Speci men Type: URINE SPECIMENOrdering Facility: [facility] Address: [address] [place] [address] Result Comment: Adul t Male and Female Nephrotic Criteria: <30 mg/g is considered normal to mildly increased 30-300 mg/g is considered moderately increased >300 mg/g is considered severely increased KDIGO. (2013). KDIGO 2012 Clinical Practice Guideline for the Evaluation and Management of Chronic Kidney Disease. Official Journal of the International Society of Nephrology, 3(1), 1-150. Performed By: #### U ACR ####[facility] LABCLIA [id number] [place] [id number] [place] Creatinine (U) [Mass/Vol] 24.5 mg/dL Normal 20.0-300.0 [facility] Comment on above: Order Comment: Speci men Type: URINE SPECIMENOrdering Facility: [facility] Address: [address] [place] [address] Performed By: #### U ACR ####[facility] LABCLIA [id number] [place] [id number] [place] CNOVon 12-14-2023 CNOV Office Visit (INTMWS ) TASHA SWEET ([id number]) 1935 F Date Time Provider Department 12/14/23 2:00 PM JADYN BOWDEN INTMWS During your visit today, we recorded the following information about you: Pulse Respiration Blood pressure Weight 70/minute 18/minute 128/80 76.6 kg Height 1.549 m Jadyn Bowden MD 01/24/2024 11:53 PM Signed This note was created using Hythiamriter. Subjective Tasha Sweet is a 88 year old female. HISTORY Tasha Sweet is a 88 year old lady here for yearly exam and follow up appointment. Reviewed had labs for cardiology yesterday. Does not care for sweets and breads like used to. Discussed DM diagnosis. Off meds. Reviewed only taking 1 potassium daily. Yesterday weak and SOB. Yessenia Nanda had her get labs. Iva better after took regular meds. Stopped trazodone. Takes only if needed but has not needed. Naps in afternoon and can sleep well at night or do something for an hour then back to sleep. Always was lousy sleeper Sore on forehead the past year. Gets crust then that comes off. Slightly larger since last year. Also lesion on top of manubrium--small,pearly. Has not seen derm yet. Had prior MOHS. PAST MEDICAL HISTORY Diagnosis Date Corneal abrasion 08/13/2016 Os Diverticulosis of colon (without mention of hemorrhage) Essential hypertension, benign History of basal cell carcinoma 06/2016 left nasal sidewall Macular degeneration 2014 Personal history of colonic polyps Pure hypercholesterolemia Type II or unspecified type diabetes mellitus without mention of complication, not stated as uncontrolled Current Outpatient Medications Medication Sig hydrocortisone valerate (WESTCORT) 0.2 % cream Apply to active or flaring lichen planus area daily until clear . AVOID eyes and eyelids. May up to 14 days per rash flare up traZODone (DESYREL) 50 mg tablet Take 1 tablet by mouth at bedtime as needed (insomnia). metoprolol tartrate, short acting, (LOPRESSOR) 100 mg tablet Take 1 tablet by mouth twice daily. amLODIPine (NORVASC) 5 mg tablet Take 1 tablet by mouth once daily. (Dr. Esparza) losartan (COZAAR) 25 mg tablet Take 1 tablet by mouth once daily. (Dr. Esparza) potassium chloride SR (MICRO-K) 8 mEq cpER Take 2 capsules by mouth once daily. atorvastatin (LIPITOR) 80 mg tablet Take 1 tablet by mouth once daily. Lactobacillus acidophilus (PROBIOTIC) 10 billion cell cap Take by mouth. furosemide (LASIX) 20 mg tablet Take 1 tablet by mouth once daily. apixaban (ELIQUIS) 5 mg tab(s) Take 1 tablet by mouth twice daily. sulfaSALAzine (AZULFIDINE) 500 mg tablet TAKE ONE TABLET BY MOUTH 3 TO 4 TIMES DAILY FOR LICHEN PLANUS, THEN TAPER BACK ON DOSE ABLE WHEN CONTROLLED DIRECTED VIT C/E/ZN/COPPR/LUTEIN/ZEAXAN (PRESERVISION AREDS 2 ORAL) Take by mouth twice daily. Cholecalciferol, Vitamin D3, 25 mcg (1,000 unit) cap Take 1 capsule by mouth once daily. (Patient not taking: Reported on 12/14/2023) Compression Knee Highs KNEE HIGH COMPRESSION STOCKINGS 30-40 MM. DX: EDEMA (Patient not taking: Reported on 12/14/2023) No current facility-administered medications for this visit. ALLERGIES Allergen Reactions Codeine Vomiting Lisinopril Cough FAMILY HISTORY Problem Relation Age of Onset Diabetes Mother Heart Mother Hypertension Mother Diabetes Daughter Diabetes Daughter Diabetes Maternal Uncle Diabetes Maternal Uncle Diabetes Maternal Uncle Diabetes Maternal Uncle Macular Degen Other aunt Social History Tobacco Use Smoking status: Former Types: Cigarettes Quit date: 05/23/1956 Years since quittin.6 Smokeless tobacco: Never Substance Use Topics Alcohol use: No Drug use: No Review of Systems Objective BP 128/80 Pulse 70 Resp 18 Ht 154.9 cm (5' 1) Wt 76.6 kg (168 lb 12.8 oz) SpO2 100% BMI 31.89 kg/m? Physical Exam Vitals reviewed. Constitutional: Appearance: She is well-developed. HENT: Head: Normocephalic and atraumatic. Right Ear: External ear normal. Left Ear: External ear normal. Nose: Nose normal. Eyes: Conjunctiva/sclera: Conjunctivae normal. Neck: Thyroid: No thyromegaly. Vascular: No carotid bruit. Cardiovascular: Rate and Rhythm: Normal rate. Rhythm irregularly irregular. Pulses: Normal pulses. Heart sounds: Normal heart sounds. No murmur heard. No friction rub. No gallop. Pulmonary: Effort: Pulmonary effort is normal. Breath sounds: Normal breath sounds. Abdominal: General: Bowel sounds are normal. There is no distension. Palpations: Abdomen is soft. There is no mass. Tenderness: There is no abdominal tenderness. Musculoskeletal: General: No deformity. Normal range of motion. Right lower leg: No edema. Left lower leg: No edema. Lymphadenopathy: Cervical: No cervical adenopathy. Skin: General: Skin is warm and dry. Colorat (more content not included)... Normal [facility] HEMOGLOBIN A1C (POC)on 12-13 HbA1c (Bld) [Mass fraction] 6.8 % Abnormal 4.3 - 5.6 % [facility] Comment on above: Location:[address], [place], [address] Point of care (POC) Hemoglobin A1c (HGBA1C) testing is intended to assess glucose control and provide a management tool for patients known to have diabetes and their healthcare providers. Target HGBA1C levels may depend on specific clinical circumstances. POC HGBA1C is not intended for use as a diagnostic or screening test; laboratory-based testing should be used for diagnostic purposes. The following information is supplemental and may not be applicable to specific diabetes management situations: The POC device lean facilitator provides a normal range of 4.2% to 6.5% for the HGBA1C POC test. However, the [place] [employer] guidelines indicate that patients with HGBA1C in the range of 5.7% to 6.4% are at increased risk for development of diabetes and that intervention by lifestyle modification may be beneficial. A HGBA1C level greater than or equal to 6.5% is considered diagnostic of diabetes, pending confirmatory testing. Use of HGBA1C testing to evaluate glucose control may not be appropriate for patients with hemoglobin variants or other conditions (e.g. anemia) that alter red blood cell lifespan. Interpretation and review of laboratory results Abnormal [facility] UA DIP, URINE (POC)on 2023 BILIRUBIN UA (POCT) Negative Negative [facility] CLARITY [facility] (POCT) [facility] COLOR [facility]A (POCT) [facility] GLUCOSE UA (POCT) Negative Negative mg/dL [facility] Hemoglobin Ql (U) Negative Negative [facility] Interpretation and review of laboratory results Abnormal [facility] KETONE UA (POCT) Negative Negative mg/dL [facility] LEUKOCYTES UA (POCT) Moderate Abnormal Negative [facility] NITRITE UA (POCT) Positive Abnormal Negative [facility] PH UA (POCT) 6.0 4.5 - 8.[address] [facility] Protein Ql (U) 30 mg/dL Abnormal Negative [facility] SPECIFIC GRAVITY UA (POCT) 1.025 1.005 - 1.[address] [facility] UROBILINOGEN UA (POCT) 1.0 Normal E.U./dL [facility] Location:[address], [place], [place], [address] [place] [address] POINT OF CARE [facility] XR Chest PA and Lateralon IMPRESSION: Stable exam with no acute radiographic abnormality. Senior Field Service Engineer: PSCB Transcribe Date/Time: Jun 04 2022 10:39A Dictated by : SHARON BHATIA MD This examination was interpreted and the report reviewed and electronically signed by: SHARON BHATIA MD on Jun 04 2022 10:41AM [facility] DIVISION OF RADIOLOGY * * *Final Report* * * DATE OF EXAM: Jun 03 2022 12:27PM WOX [id number] - XR CHEST 2V FRONTAL/LAT / PROCEDURE REASON: multiple diagnoses * * * * Physician Interpretation * * * * EXAMINATION: CHEST RADIOGRAPH (2 VIEW FRONTAL & LATERAL) CLINICAL HISTORY: Acute cough Shortness of breath MQ: XC2_6 EXAM DATE/TIME: 06/03/2022 12:27 PM COMPARISON: Chest radiograph(s) dated 04/19/2011 RESULT: Lines, tubes, and devices: None. Lungs and pleura: Persistent elevation of the left hemidiaphragm. Stable mild lingular atelectases/scarring. No focal lung consolidation. No significant pleural effusion or pneumothorax. Mild biapical scarring, likely postinflammatory. Cardiomediastinal silhouette: Stable cardiomediastinal silhouette. Atherosclerotic calcifications of the aortic arch. Bones and soft tissues: Mild endplate degenerative changes of the visualized spine. DIVISION OF RADIOLOGY Provider, Nicole Anabel Jernigan - 06/04/2022 * * *Final Report* * * DATE OF EXAM: Jun 03 2022 12:27PM WOX [id number] - XR CHEST 2V FRONTAL/LAT / PROCEDURE REASON: multiple diagnoses * * * * Physician Interpretation * * * * EXAMINATION: CHEST RADIOGRAPH (2 VIEW FRONTAL & LATERAL) CLINICAL HISTORY: Acute cough Shortness of breath MQ: XC2_6 EXAM DATE/TIME: 06/03/2022 12:27 PM COMPARISON: Chest radiograph(s) dated 04/19/2011 RESULT: Lines, tubes, and devices: None. Lungs and pleura: Persistent elevation of the left hemidiaphragm. Stable mild lingular atelectases/scarring. No focal lung consolidation. No significant pleural effusion or pneumothorax. Mild biapical scarring, likely postinflammatory. Cardiomediastinal silhouette: Stable cardiomediastinal silhouette. Atherosclerotic calcifications of the aortic arch. Bones and soft tissues: Mild endplate degenerative changes of the visualized spine. IMPRESSION IMPRESSION: Stable exam with no acute radiographic abnormality. Senior Field Service Engineer: PSCB Transcribe Date/Time: Jun 04 2022 10:39A Dictated by : SHARON BHATIA MD This examination was interpreted and the report reviewed and electronically signed by: SHARON BHATIA MD on Jun 04 2022 10:41AM EST [facility] XR Chest PA and LateralOrder ed By: Ccf Provider on 06-04-[address] [facility] XR Chest PA and Lateralon Radiology Study observation (narrative) [facility] STREP A MOLECULAR (POC)on Procedural Control Valid [facility] Strep A (POCT) Negative Negative [facility] Absolute lymphocyte counton 11-27-2021 Lymphocytes Auto (Unsp spec) [#/Vol] 3.61 10*3/uL 0.83-4.51 [facility] Work Phone: Basophil percentageon 2021 Basophils/100 WBC (Bld) 0.2 % 0-1 [facility] Work Phone: Chloride [Moles/Vol] 108 mmol/L 98-107 [facility] Work Phone: Eosinophils/100 WBC (Bld) 3.2 % 0-5 [facility] Work Phone: Glucose [Mass/Vol] 172 mg/dL 74-106 [facility] Work Phone: Comment on above: Fasting Glucose resu lt greater than or equal to 126 mg/dL suggests DIABETES MELLITUS per A.D.A. criteria. Neutrophils (Bld) [#/Vol] 5.3 10*3/uL 2.0-7.7 [facility] Work Phone: Neutrophils/100 WBC (Bld) 52.5 % 47-70 [facility] Work Phone: Potassium [Moles/Vol] 3.9 mmol/L 3.5-5.1 [facility] Work Phone: Sodium [Moles/Vol] 141 mmol/L 136-145 [facility] Work Phone: WBC (Bld) [#/Vol] 10.2 10*3/uL 4.4-11.0 [facility] Work Phone: Blood erythrocytes count (nu mber/volume)on 11-27-2021 RBC (Bld) [#/Vol] 4.24 10*6/uL 4.2-5.4 [facility] Work Phone: Blood hemoglobin measurement (mass/volume)on 11-27-2021 Hemoglobin (Bld) [Mass/Vol] 12.9 g/dL 12.0-15.0 [facility] Work Phone: Blood lymphocytes/100 leukoc yteson 11-27-2021 Lymphocytes/100 WBC (Bld) 35.5 % 19-41 [facility] Work Phone: Blood monocytes/100 leukocyt eson 11-27-2021 Monocytes/100 WBC (Bld) 8.3 % 0-10 [facility] Work Phone: Blood platelet mean volumeon 11-27-2021 Platelet mean volume (Bld) [Entitic vol] 10.8 fL 6.2-12.0 [facility] Work Phone: [phone] Determination of erythrocyte mean corpuscular volume (MCV)on 11-27-2021 MCV (RBC) [Entitic vol] 95.0 fL 81-99 [facility] Work Phone: Hematocrit Auto (Bld) [Volum e fraction]on 11-27-2021 Hematocrit (Bld) [Volume fraction] 40.3 % 37-47 [facility] Work Phone: [phone] Laboratory - Chemistry and C hemistry - challengeon 11-27-2021 CO2 [Moles/Vol] 26.0 mmol/L 21.0-32.0 [facility] Work Phone: [phone] Urea nitrogen/Creatinine [Mass ratio] 13.9 mg/mg 10-20 [facility] Work Phone: Laboratory - Hematology and Cell countson 11-27-2021 Erythrocyte distribution width (RBC) [Entitic vol] 49.1 fL 35.1-43.9 [facility] Work Phone: Erythrocyte distribution width (RBC) [Ratio] 14.1 % 11.6-14.6 [facility] Work Phone: Immature granulocytes/100 WBC (Bld) 0.300 % 0.0-0.9 [facility] Work Phone: [phone] Comment on above: IG% - Immature Granu locytes (promyelocytes, myelocytes and metamyelocytes) > 1% indicates that a LEFT SHIFT is Present. MCH (RBC) [Entitic mass] 30.4 pg 27.0-32.0 [facility] Work Phone: Nucleated RBC/100 WBC (Bld) [Ratio] 0 % 0-5 [facility] Work Phone: MCHC Auto (RBC) [Mass/Vol]on 11-27-2021 MCHC (RBC) [Mass/Vol] 32.0 g/dL 32-36 [facility] Work Phone: No Panel Informationon 11-27 Estimated Creatinine Clearance Calc 23.78 ml/min [facility] Work Phone: Estimated GFR (MDRD) Amer 54 mL/min >60 [facility] Work Phone: Comment on above: GFR Calc Estimated GFR (MDRD) Non-Af Amer 44 mL/min >60 [facility] Work Phone: Comment on above: Non- GFR Calc Troponin I High Sensitivity 6 pg/mL 3.0-54.0 [facility] Work Phone: Comment on above: Please Note: New January t Units and Gender Specific Reference Ranges. For more information see Policy Stat Procedure [place] High Sensitivity Troponin (TNIH) and attachments. Platelets bldon 11-27-2021 Platelets (Bld) [#/Vol] 179 10*3/uL 150-450 [facility] Work Phone: Serum or plasma calcium wu urement (mass/volume)on 11-27-2021 Calcium [Mass/Vol] 9.2 mg/dL 8.5-10.1 [facility] Work Phone: Serum or plasma creatinine m easurement (mass/volume)on 11-27-2021 Creatinine [Mass/Vol] 1.22 mg/dL 0.55-1.02 [facility] Work Phone: Comment on above: The validity of the calculated GFR & GFRAA in patients over 70 years has not been determined. Clinical correlation is essential. Serum or plasma urea nitroge n measurement (mass/volume)on 11-27-2021 Urea nitrogen [Mass/Vol] 17 mg/dL 7-18 [facility] Work Phone: Thin prep Papanicolaou smear with manual screeningon 11-27-2021 Thin prep Papanicolaou smear with manual screening 7 5-15 [facility] Work Phone: No Panel Informationon 10-13 IMPRESSION: No acute osseous abnormality. Bilateral acromioclavicular osteoarthritis. Senior Field Service Engineer: AMIRA Transcribe Date/Time: Oct 13 2021 9:01A Dictated by : LIDIA BOSTON DO This examination was interpreted and the report reviewed and electronically signed by: LIDIA BOSTON DO on Oct 13 2021 9:05AM EST EfrainZZ_DO_NOT _USE_DIVIS ION OF RADIOLOGY Radiology Study observation (narrative) [facility] No Panel InformationOrdered By: Ccf Provider on 10-13-[address] [facility] XR Clavicle - left 2 Viewson 10-13-2021 * * *Final Report* * * DATE OF EXAM: Oct 13 2021 8:50AM WOX 5316 - XR CLAVICLE 2V LT / PROCEDURE REASON: Abnormal prominence of clavicle * * * * Physician Interpretation * * * * EXAMINATION: XR CLAVICLE 2V LT, XR CLAVICLE 2V RT PATIENT/TECHNOLOGIST PROVIDED HISTORY: Left sided lump over the SC joint x several days without injury. CLINICAL INFORMATION: 86 years old Female with Abnormal prominence of clavicle TECHNIQUE: XR CLAVICLE 2V LT, XR CLAVICLE 2V RT Laterality: LEFT (accession [id number]), RIGHT (accession [id number]) Number of different views (projections): 2 views of each clavicle. COMPARISON: None. RESULT: No fracture or dislocation. Mild-moderate degenerative change bilateral acromioclavicular joints. Chronic reactive changes LEFT greater tuberosity. Atherosclerotic calcification of the aortic arch. ZZZ_DO_NOT _USE_DIVIS ION OF RADIOLOGY Provider, [facility] - 10/13/2021 * * *Final Report* * * DATE OF EXAM: Oct 13 2021 8:50AM WOX 5316 - XR CLAVICLE 2V LT / PROCEDURE REASON: Abnormal prominence of clavicle * * * * Physician Interpretation * * * * EXAMINATION: XR CLAVICLE 2V LT, XR CLAVICLE 2V RT PATIENT/TECHNOLOGIST PROVIDED HISTORY: Left sided lump over the SC joint x several days without injury. CLINICAL INFORMATION: 86 years old Female with Abnormal prominence of clavicle TECHNIQUE: XR CLAVICLE 2V LT, XR CLAVICLE 2V RT Laterality: LEFT (accession [id number]), RIGHT (accession [id number]) Number of different views (projections): 2 views of each clavicle. COMPARISON: None. RESULT: No fracture or dislocation. Mild-moderate degenerative change bilateral acromioclavicular joints. Chronic reactive changes LEFT greater tuberosity. Atherosclerotic calcification of the aortic arch. IMPRESSION IMPRESSION: No acute osseous abnormality. Bilateral acromioclavicular osteoarthritis. Senior Field Service Engineer: [employer] Transcribe Date/Time: Oct 13 2021 9:01A Dictated by : LIDIA BOSTON DO This examination was interpreted and the report reviewed and electronically signed by: LIDIA BOSTON DO on Oct 13 2021 9:05AM [facility] XR Clavicle - right 2 Viewso n 10-13-2021 * * *Final Report* * * DATE OF EXAM: Oct 13 2021 8:50AM WOX 5317 - XR CLAVICLE 2V RT / PROCEDURE REASON: Abnormal prominence of clavicle * * * * Physician Interpretation * * * * EXAMINATION: XR CLAVICLE 2V LT, XR CLAVICLE 2V RT PATIENT/TECHNOLOGIST PROVIDED HISTORY: Left sided lump over the SC joint x several days without injury. CLINICAL INFORMATION: 86 years old Female with Abnormal prominence of clavicle TECHNIQUE: XR CLAVICLE 2V LT, XR CLAVICLE 2V RT Laterality: LEFT (accession [id number]), RIGHT (accession [id number]) Number of different views (projections): 2 views of each clavicle. COMPARISON: None. RESULT: No fracture or dislocation. Mild-moderate degenerative change bilateral acromioclavicular joints. Chronic reactive changes LEFT greater tuberosity. Atherosclerotic calcification of the aortic arch. ZZZ_DO_NOT _USE_DIVIS ION OF RADIOLOGY Provider, [facility] - 10/13/2021 * * *Final Report* * * DATE OF EXAM: Oct 13 2021 8:50AM WOX 5317 - XR CLAVICLE 2V RT / PROCEDURE REASON: Abnormal prominence of clavicle * * * * Physician Interpretation * * * * EXAMINATION: XR CLAVICLE 2V LT, XR CLAVICLE 2V RT PATIENT/TECHNOLOGIST PROVIDED HISTORY: Left sided lump over the SC joint x several days without injury. CLINICAL INFORMATION: 86 years old Female with Abnormal prominence of clavicle TECHNIQUE: XR CLAVICLE 2V LT, XR CLAVICLE 2V RT Laterality: LEFT (accession [id number]), RIGHT (accession [id number]) Number of different views (projections): 2 views of each clavicle. COMPARISON: None. RESULT: No fracture or dislocation. Mild-moderate degenerative change bilateral acromioclavicular joints. Chronic reactive changes LEFT greater tuberosity. Atherosclerotic calcification of the aortic arch. IMPRESSION IMPRESSION: No acute osseous abnormality. Bilateral acromioclavicular osteoarthritis. Senior Field Service Engineer: AMIRA Transcribe Date/Time: Oct 13 2021 9:01A Dictated by : LIDIA BOSTON DO This examination was interpreted and the report reviewed and electronically signed by: LIDIA BOSTON DO on Oct 13 2021 9:05AM [facility] XR Foot - left AP and Latera l and obliqueon 10-30-2020 IMPRESSION: No fract ure Senior Field Service Engineer: [facility] Transcribe Date/Time: Oct 30 2020 3:53P Dictated by : YESSENIA AMIN MD This examination was interpreted and the report reviewed and electronically signed by: YESSENIA AMIN MD on Oct 30 2020 3:55PM [facility] DIVISION OF RADIOLOGY * * *Final Report* * * DATE OF EXAM: Oct 30 2020 1:00PM WOX 5336 - XR FOOT 3V AP/LAT/OBL LT / PROCEDURE REASON: Injury of left foot, initial encounter * * * * Physician Interpretation * * * * HISTORY: Injury of left foot, initial encounter Left dorsal distal forefoot pain after dropping and object on her foot x 1 week ago. TECHNIQUE: 3 views COMPARISON: None RESULT: No fracture or dislocation. Suspect some degree of soft tissue swelling over the dorsum of the midfoot. Mild degenerative spurring and joint space narrowing at the first tarsometatarsal joint. DIVISION OF RADIOLOGY Provider, Iban Jernigan - 10/30/2020 * * *Final Report* * * DATE OF EXAM: Oct 30 2020 1:00PM WOX 5336 - XR FOOT 3V AP/LAT/OBL LT / PROCEDURE REASON: Injury of left foot, initial encounter * * * * Physician Interpretation * * * * HISTORY: Injury of left foot, initial encounter Left dorsal distal forefoot pain after dropping and object on her foot x 1 week ago. TECHNIQUE: 3 views COMPARISON: None RESULT: No fracture or dislocation. Suspect some degree of soft tissue swelling over the dorsum of the midfoot. Mild degenerative spurring and joint space narrowing at the first tarsometatarsal joint. IMPRESSION IMPRESSION: No fracture Senior Field Service Engineer: AMIRA Transcribe Date/Time: Oct 30 2020 3:53P Dictated by : YESSENIA AMIN MD This examination was interpreted and the report reviewed and electronically signed by: YESSENIA AMIN MD on Oct 30 2020 3:55PM EST [facility] Radiology Study observation (narrative) [facility] XR Foot - left AP and Latera l and obliqueOrdered By: Ccf Provider on 10-30-[address] [facility] CNOVon 03-08-2017 CNOV Office Visit (AGCARDWST) TASHA JANG ([id number]) 1935 FDate Time Provider Hdkajlrtyc65/17/17 11:30 AM FELICE PEARSON During your visit today, we recorded the following information about you: Pulse Blood pressure Weight Height 70/minute 120/60 73.3 kg 1.556 Ailin Pearson MD 10/20/2017 6:08 PM AddendumPERTINENT CARDIAC HISTORYASHD - PCI RCA, CX 06/07 (SHABNAM)HLHTNPAF - during ACS, no recurrenceDMSevere epistaxis - DHERENCE TO GUIDELINESACE-I or ARB for HF with prior LVEF<40 (NQF 0081) - N/AASA or Plavix for ASHD (NQF 0067) - metBeta mia for ASHD with prior SC or prior LVEF<40 (NQF 0070) - metBeta mia for HF with prior LVEF<40 (NQF 0083) - N/AACE-I or ARB for ASHD with DM or prior LVEF<40 (NQF 0066) - metStatin therapy for ASHD or FHL or DM - metBMI documented and plan if >25 (NQF 0421) - lifestyle recommendation formTobacco use screening and referral (NQF 0028) - lifestyle recommendation formRecommendation for whole food, plant based diet - lifestyle recommendation formCLINICAL IMPRESSION/PLAN:Tasha Sweet has had significant weight loss and her blood pressure isrunning borderline low. She will discontinue Norvasc. I've asked her to call mewith updated vital signs and symptoms in 2 weeks.She will stay off Plavix. There is no point in restarting this at the presenttime.She was congratulated on her weight loss and encouraged to maintain herexercise program.I will see her in 6 months or as needed. If there is increased chest pain orshortness of breath, she has been advised to contact me.Written and verbal health teaching given to patient, patient verbalizesunderstanding and agrees with treatment plan.This note was generated using tenKsolar voice recognition system, and there may besome incorrect words, spellings, and punctuation that were not noted inchecking the note before saving.DIAGNOSIS FOR VISIT:ASHDHypertensionHISTORY OF PRESENT ILLNESSTasha Sweet returns for follow-up of her coronary disease and hypertension.She has had no recent palpitations. She's had no further epistaxis, but shereports that her ENT physician has asked her not to restart Plavix. She hasstarted back on aspirin.She denies chest pain. She's had no orthopnea, edema, syncope, TIAs, amaurosisor claudication.She has lost 30 pounds over the last year and her blood pressure has beenrunning borderline low. She has had some lightheadedness about an hour aftertaking medications.ALLERGIES:ALLERGIES Allergen Reactions- Codeine Vomiting- Lisinopril CoughCURRENT OUTPATIENT MEDICATIONS:Hydrochlorothiazide 12.5 mg capsule TAKE ONE CAPSULE BY MOUTH ONCE DAILYlosartan (COZAAR) 50 mg tablet Take 1 tablet by mouth once daily.metoprolol tartrate, short acting, (LOPRESSOR) 100 mg tablet Take 0.5 tabletsby mouth twice daily.sulfaSALAzine (AZULFIDINE) 500 mg tablet TAKE ONE TABLET BY MOUTH 3 TO 4 TIMESDAILY FOR LICHEN PLANUS, THEN TAPER BACK ON DOSE ABLE WHEN CONTROLLED ASDIRECTEDatorvastatin (LIPITOR) 80 mg tablet Take 1 tablet by mouth once daily.hydrocortisone valerate (WESTCORT) 0.2 % cream Apply to active or flaringlichen planus area until clear . AVOID eyes and eyelids.amLODIPine (NORVASC) 5 mg tablet Take 1 tablet by mouth once daily.hydrOXYzine HCl (ATARAX) 10 mg tablet Take 1 tablet by mouth every 4 hours asneeded for Itching/Rash.Compression Knee Highs KNEE HIGH COMPRESSION STOCKINGS 30-40 MM. DX: EDEMApotassium chloride (K-TAB) 10 mEq tablet Take 1 tablet by mouth once daily.ammonium lactate (LAC-HYDRIN) 12 % cream Apply to affected areas of feet dailyafter bathingVIT C/E/ZN/COPPR/LUTEIN/ZEAXAN (PRESERVISION AREDS 2 ORAL) Take by mouth twicedaily.aspirin, enteric coated (ECOTRIN LOW STRENGTH) 81 mg EC tablet Take 1 tablet bymouth once daily.blood sugar diagnostic (ONE TOUCH ULTRA TEST) [facility] test strip Use as instructedLancets (ONE TOUCH ULTRASOFT LANCETS) [facility] lancets 1 Each once daily. Use asinstructedPHYSICAL EXAMINATION:VITAL SIGNS: BP 120/60 Pulse 70 Ht 5' 1.25 (1.56m) Wt 161 lb 9.6 oz(73.3kg) BMI 30.28 kg/(m2).Chest: Clear to percussion and auscultation. Trachea is midline. Air entry isequal. Cardiac: Regular rhythm. S1 and S2 are normal. PMI is nondisplaced.There is a soft systolic ejection murmur. Carotids are brisk without bruits.JVP is less than 10 cm. Abdomen: Soft and nontender. There are no pulsatilemasses or bruits. No liver enlargement. Bowel sounds are active.Extremities: No edema. Pulses are intact and symmetrical.Recent labs reviewed. Renal function is mildly impaired but stable. LDL was 51.EKG sinus rhythm and is within normal limits.Electronically Signed:Felice Pearson MDMarch 08, 2017 11:37 [facility]: Terry Gallego MD 03/08/2017 11:37 AM SignedLIFESTYLE CHANGEA healthy lifestyle is the most important component of your overall treatmentplan. Please give serious thought to the following areas and commit to makinglong term changes.EAT A WHOLE FOOD, PLANT BASED DIETThe nutrition your body gets is more important than the medicine you take.What matters most is the overall way you eat. We encourage you to minimize theuse of animal products (which include dairy and all meats except fatty fish)and use whole, unprocessed plant foods to provide your protein, vitamins andother nutrients. We have a lot of information to share with you on this topic. We also hold Shared Medical Appointments, where you can come visit with in the company of other patients and spend over an hour talking aboutthe challenges of changing the way you eat. This is not a diet. It is a wayof life that you will keep with you.EXERCISE REGULARLYIt is not important to spend hours in the gym, lifting weights and perspiringheavily. A total of 2-3 hours per week of aerobic (causing you to bemoderately short of breath) exercise is sufficient to improve your health.Talk to us before you begin a new exercise program, if you have heart diseaseor experience shortness of breath or chest pain.REDUCE STRESSChronic emotional and physical stress leads to disease. Ways of reducingstress include meditation, visualization, prayer, yoga and other forms ofrelaxation therapy. Consistency is the bryson. Find a technique that works foryou and do it every day.CULTIVATE RELATIONSHIPSLoneliness and isolation have a major negative impact on health. Seek outothers who can love, care for and nurture you. Avoid hurtful relationships.MAINTAIN IDEAL BODY WEIGHTThe best way to do this is to do all the things above. Our bodies naturallyfind the right weight if we keep moving and feed ourselves the right food. Ifyour BMI is greater than 25, we strongly recommend a referral to a weightmanagement program. Please speak to us our your family physician aboutavailable programs.AVOID NICOTINE IN ALL FORMSThis includes all tobacco products, whether chewed, smoked, vaped, or rubbed onthe skin. Smoking cessation programs, which can make use of tobaccosubstitutes, medications to suppress cravings and behavior management, areavailable. Please contact your family physician about programs in your area.Referring Provider: FELICE PEARSON [[id number]]Allergies As of Date: 03/08/2017 Noted Allergy ReactionCODEINE 09/12/2007 11 - VomitingLISINOPRIL 11/25/2010 3 - CoughDate Reviewed: 03/08/2017Reviewed by: Ángela Palencia - Fully AssessedReason for Visit: Follow Up [171]Primary Visit Diagnosis:ASHD (arteriosclerotic heart disease) [I25.10] Other Visit Diagnosis:PAF (paroxysmal atrial fibrillation) ([facility]) [I48.0]Order(s):potassium chloride (K-TAB) 10 mEq tabletTake 1 tablet by mouth once daily.Disp: 90 tabletRfl: 3 Hydrochlorothiazide 12.5 mg capsuleTake 1 capsule by mouth once daily.Disp: 90 capsuleRfl: 3 ECG B/O W INTERP (MED OFFICE) [ECG06] Order #: [id number] as of 03/08/2017 Sig: POTASSIUM CHLORIDE ER 10 MEQ * Take 1 tablet by mouth once d* HYDROCHLOROTHIAZIDE 12.5 MG C* Take 1 capsule by mouth once * LOSARTAN 50 MG TABLET Take 1 tablet by mouth once d* METOPROLOL TARTRATE 100 MG TA* Take 0.5 tablets by mouth twi* SULFASALAZINE 500 MG TABLET TAKE ONE TABLET BY MOUTH 3 TO* ATORVASTATIN 80 MG TABLET Take 1 tablet by mouth once d* HYDROCORTISONE VALERATE 0.2 %* Apply to active or flaring li* HYDROXYZINE HCL 10 MG TABLET Take 1 tablet by mouth every * COMPOUNDED PRESCRIPTION KNEE HIGH COMPRESSION STOCKIN* AMMONIUM LACTATE 12 % TOPICAL* Apply to affected areas of fe* PRESERVISION AREDS 2 ORAL Take by mouth twice daily.X ASPIRIN 81 MG TABLET,DELAYED * Take 1 tablet by mouth once d* * BLOOD SUGAR DIAGNOSTIC STRIPS Use as instructed * LANCETS 1 Each once daily. Use as ins*Medication notes this encounter ASPIRIN 81 MG TABLET,DELAYED RELEASE >> Ángela Palencia MA 03/08/2017 11:18 AM >> VALARIE BRENNAN ÁNGELA Walter Mar 08, 2017 11:18 AMProblem List As Of Date 03/08/2017 Noted Resolved Diabetes mellitus type 2, controlled, without c*INVALID FOR* BENIGN HYPERTENSION [I10] INVALID FOR* More... RESTLESS LEGS SYNDROME [G25.81] INVALID FOR* CYSTOCELE, MIDLINE [N81.11] INVALID FOR* MIXED HYPERLIPIDEMIA [E78.2] INVALID FOR* Lichen planus [L43.9] INVALID FOR* Rash and other nonspecific skin eruption [R21] INVALID FOR* Pruritus [L29.9] INVALID FOR* Proteinuria [R80.9] INVALID FOR* Postinflammatory hyperpigmentation [L81.0] INVALID FOR* Thoracic or lumbosacral neuritis or radiculitis*INVALID FOR* Postinflammatory skin changes [R23.4] INVALID FOR* Lichenoid dermatitis [L28.0] INVALID FOR* Lichenoid keratosis [L82.1] INVALID FOR* S/P coronary artery stent placement [Z95.5] INVALID FOR* Obesity, Class I, BMI 30-34.9 [E66.9] INVALID FOR* Other instructions from your clinician: LIFESTYLE CHANGE A healthy lifestyle is the most important component of your overall treatment plan. Please give serious thought to the following areas and commit to making buttermaker continuous churn changes. EAT A WHOLE FOOD, PLANT BASED DIET The nutrition your body gets is more important than the medicine you take. What matters most is the overall way you eat. We encourage you to minimize the use of animal products (which include dairy and all meats except fatty fish) and use whole, unprocessed plant foods to provide your protein, vitamins and other nutrients. We have a lot of information to share with you on this topic. We also hold Shared Medical Appointments, where you can come visit with Dr. Pearson in the company of other patients and spend over an hour talking about the challenges of changing the way you eat. This is not a diet. It is a way of life that you will keep with you. EXERCISE REGULARLY It is not important to spend hours in the gym, lifting weights and perspiring heavily. A total of 2-3 hours per week of aerobic (causing you to be moderately short of breath) exercise is sufficient to improve your health. Talk to us before you begin a new exercise program, if you have heart disease or experience shortness of breath or chest pain. REDUCE STRESS Chronic emotional and physical stress leads to disease. Ways of reducing stress include meditation, visualization, prayer, yoga and other forms of relaxation therapy. Consistency is the bryson. Find a technique that works for you and do it every day. CULTIVATE RELATIONSHIPS Loneliness and isolation have a major negative impact on health. Seek out others who can love, care for and nurture you. Avoid hurtful relationships. MAINTAIN IDEAL BODY WEIGHT The best way to do this is to do all the things above. Our bodies naturally find the right weight if we keep moving and feed ourselves the right food. If your BMI is greater than 25, we strongly recommend a referral to a weight management program. Please speak to us our your family physician about available programs. AVOID NICOTINE IN ALL FORMS This includes all tobacco products, whether chewed, smoked, vaped, or rubbed on the skin. Smoking cessation programs, which can make use of tobacco substitutes, medications to suppress cravings and behavior management, are available. Please contact your family physician about programs in your area.Prescriptions ordered this encounter Disp Refills Start End POTASSIUM CHLORIDE ER 10 MEQ TABLET,* 90 t* 3 03/08/2017 Route: ORAL Sig: Take 1 tablet by mouth once daily. HYDROCHLOROTHIAZIDE 12.5 MG CAPSULE 90 c* 3 03/08/2017 Route: ORAL Sig: Take 1 capsule by mouth once daily.Medications Discontinued During This Encounter amLODIPine (NORVASC) 5 mg tablet 30 t* 11 09/07/2016 03/08/2017 Route: ORAL Sig: Take 1 tablet by mouth once daily. Disc: Reason for discontinue is not on file. potassium chloride (K-TAB) 10 mEq ta* 90 t* 3 07/21/2016 03/08/2017 Route: ORAL Sig: Take 1 tablet by mouth once daily. Disc: Reason for discontinue is not on file. Hydrochlorothiazide 12.5 mg capsule 90 c* 1 02/28/2017 03/08/2017 Sig: TAKE ONE CAPSULE BY MOUTH ONCE DAILY Disc: Reason for discontinue is not on file. Status:Closed by FELICE PEARSON MD on 03/08/17 [facility] PROGRESSon 03-08-2017 PROGRESS HNO ID: [id number] thor: Felice Beaver: (none)Author Type: PhysicianType: Progress NotesFiled: 10/20/2017 6:08 PMNote Text:PERTINENT CARDIAC HISTORYASHD - PCI RCA, CX 06/07 (SHABNAM)HLHTNPAF - during ACS, no recurrenceDMSevere epistaxis - DHERENCE TO GUIDELINESACE-I or ARB for HF with prior LVEF<40 (NQF 0081) - N/AASA or Plavix for ASHD (NQF 0067) - metBeta mia for ASHD with prior SC or prior LVEF<40 (NQF 0070) - metBeta mia for HF with prior LVEF<40 (NQF 0083) - N/AACE-I or ARB for ASHD with DM or prior LVEF<40 (NQF 0066) - metStatin therapy for ASHD or FHL or DM - metBMI documented and plan if >25 (NQF 0421) - lifestyle recommendation formTobacco use screening and referral (NQF 0028) - lifestyle recommendationformRecommendatio n for whole food, plant based diet - lifestyle recommendationformCLINICAL IMPRESSION/PLAN:Tasha Sweet has had significant weight loss and her blood pressure isrunning borderline low. She will discontinue Norvasc. I've asked her tocall me with updated vital signs and symptoms in 2 weeks.She will stay off Plavix. There is no point in restarting this at thepresent time.She was congratulated on her weight loss and encouraged to maintain herexercise program.I will see her in 6 months or as needed. If there is increased chest painor shortness of breath, she has been advised to contact me.Written and verbal health teaching given to patient, patient verbalizesunderstanding and agrees with treatment plan.This note was generated using tenKsolar voice recognition system, and theremay be some incorrect words, spellings, and punctuation that were notnoted in checking the note before saving.DIAGNOSIS FOR VISIT:ASHDHypertensionHISTORY OF PRESENT ILLNESSTasha Sweet returns for follow-up of her coronary disease andhypertension. She has had no recent palpitations. She's had no furtherepistaxis, but she reports that her ENT physician has asked her not torestart Plavix. She has started back on aspirin.She denies chest pain. She's had no orthopnea, edema, syncope, TIAs,amaurosis or claudication.She has lost 30 pounds over the last year and her blood pressure has beenrunning borderline low. She has had some lightheadedness about an hourafter taking medications.ALLERGIES:ALLERGIES Allergen Reactions- Codeine Vomiting- Lisinopril CoughCURRENT OUTPATIENT MEDICATIONS:Hydrochlorothiazide 12.5 mg capsule TAKE ONE CAPSULE BY MOUTH ONCE DAILYlosartan (COZAAR) 50 mg tablet Take 1 tablet by mouth once daily.metoprolol tartrate, short acting, (LOPRESSOR) 100 mg tablet Take 0.5tablets by mouth twice daily.sulfaSALAzine (AZULFIDINE) 500 mg tablet TAKE ONE TABLET BY MOUTH 3 TO 4TIMES DAILY FOR LICHEN PLANUS, THEN TAPER BACK ON DOSE ABLE WHENCONTROLLED DIRECTEDatorvastatin (LIPITOR) 80 mg tablet Take 1 tablet by mouth once daily.hydrocortisone valerate (WESTCORT) 0.2 % cream Apply to active or flaringlichen planus area until clear . AVOID eyes and eyelids.amLODIPine (NORVASC) 5 mg tablet Take 1 tablet by mouth once daily.hydrOXYzine HCl (ATARAX) 10 mg tablet Take 1 tablet by mouth every 4 hoursas needed for Itching/Rash.Compression Knee Highs KNEE HIGH COMPRESSION STOCKINGS 30-40 MM. DX:EDEMApotassium chloride (K-TAB) 10 mEq tablet Take 1 tablet by mouth oncedaily.ammonium lactate (LAC-HYDRIN) 12 % cream Apply to affected areas of feetdaily after bathingVIT C/E/ZN/COPPR/LUTEIN/ZEAXAN (PRESERVISION AREDS 2 ORAL) Take by mouthtwice daily.aspirin, enteric coated (ECOTRIN LOW STRENGTH) 81 mg EC tablet Take 1tablet by mouth once daily.blood sugar diagnostic (ONE TOUCH ULTRA TEST) Misc test strip Use asinstructedLancets (ONE TOUCH ULTRASOFT LANCETS) Misc lancets 1 Each once daily. Useas instructedPHYSICAL EXAMINATION:VITAL SIGNS: BP 120/60 Pulse 70 Ht 5' 1.25 (1.56m) Wt 161 lb 9.6 oz(73.3kg) BMI 30.28 kg/(m2).Chest: Clear to percussion and auscultation. Trachea is midline. Airentry is equal. Cardiac: Regular rhythm. S1 and S2 are normal. PMI isnondisplaced. There is a soft systolic ejection murmur. Carotids arebrisk without bruits. JVP is less than 10 cm. Abdomen: Soft andnontender. There are no pulsatile masses or bruits. No liverenlargement. Bowel sounds are active. Extremities: No edema. Pulses areintact and symmetrical.Recent labs reviewed. Renal function is mildly impaired but stable. LDLwas 51.EKG sinus rhythm and is within normal limits.Electronically Signed:Felice Pearson [facility] 2016 11:37 [facility]: Cash Turpin MD [facility] Vital Signs Date Time Vital Sign Value Performing Clinician Faci lity 12-28-2024 09:52-0400 Body height 152.[address] Jadyn Bowden MD Work Phone: [facility] 12-28-2024 09:52-0400 Body mass index (BMI) [Ratio] 31.6 kg/m2 Dr. Jadyn Bowden MD Work Phone: [facility] 12-28-2024 09:52-0400 Body weight 73.[address] Jadyn Bowden MD Work Phone: [facility] 12-28-2024 09:52-0400 Diastolic blood pressure 77 mm[Hg] Dr. Jadyn Bowden MD Work Phone: [facility] 12-28-2024 09:52-0400 Heart rate 55 /min Dr. Jadyn Bowden MD Work Phone: [facility] 12-28-2024 09:52-0400 Respiratory rate 18 /min Dr. Jadyn Bowden MD Work Phone: [facility] 12-28-2024 09:52-0400 SaO2% (BldA) [Mass fraction] 97 % Dr. Jadyn Bowden MD Work Phone: [facility] 12-28-2024 09:52-0400 Systolic blood pressure 162 mm[Hg] Dr. Jadyn Bowden MD Work Phone: [facility] 11-08-2024 11:36-0400 Diastolic blood pressure 75 mm[Hg] Jessie Hurt TIMING INSPECTOR.COMPUTER LANGUAGE CODER Work Phone: [facility] 11-08-2024 11:36-0400 Heart rate 62 /min Jessie Hurt TIMING INSPECTOR.COMPUTER LANGUAGE CODER Work Phone: [facility] 11-08-2024 11:36-0400 Systolic blood pressure 155 mm[Hg] Jessie Hurt TIMING INSPECTOR.COMPUTER LANGUAGE CODER Work Phone: [facility] 11-08-2024 11:35-0400 Body mass index (BMI) [Ratio] 30.83 kg/m2 Jessie Hurt TIMING INSPECTOR.COMPUTER LANGUAGE CODER Work Phone: [facility] 11-08-2024 11:35-0400 Body weight 74 kg Jessie Hurt TIMING INSPECTOR.COMPUTER LANGUAGE CODER Work Phone: [facility] 11-08-2024 11:35-0400 Respiratory rate 16 /min Jessie Hurt TIMING INSPECTOR.COMPUTER LANGUAGE CODER Work Phone: [facility] 09-10-2024 12:05-0400 Diastolic blood pressure 80 mm[Hg] Jessie Hurt TIMING INSPECTOR.COMPUTER LANGUAGE CODER Work Phone: [facility] 09-10-2024 12:05-0400 Heart rate 80 /min Jessie Hurt TIMING INSPECTOR.COMPUTER LANGUAGE CODER Work Phone: [facility] 09-10-2024 12:05-0400 Systolic blood pressure 145 mm[Hg] Jessie Hurt TIMING INSPECTOR.COMPUTER LANGUAGE CODER Work Phone: [facility] 09-10-2024 12:03-0400 Body mass index (BMI) [Ratio] 31.24 kg/m2 Jessie Hurt TIMING INSPECTOR.COMPUTER LANGUAGE CODER Work Phone: [facility] 09-10-2024 12:03-0400 Body weight 75 kg Jessie Hurt TIMING INSPECTOR.COMPUTER LANGUAGE CODER Work Phone: [facility] 09-10-2024 12:03-0400 Respiratory rate 16 /min Jessie Hurt TIMING INSPECTOR.COMPUTER LANGUAGE CODER Work Phone: [facility] 08-06-2024 08:10-0400 Body height 152.[address] Jadyn Bowden MD Work Phone: [facility] 08-06-2024 08:10-0400 Body mass index (BMI) [Ratio] 32.4 kg/m2 Dr. Jadyn Bowden MD Work Phone: [facility] 08-06-2024 08:10-0400 Body weight 75.[address] Jadyn Bowden MD Work Phone: [facility] 08-06-2024 08:10-0400 Diastolic blood pressure 87 mm[Hg] Dr. Jadyn Bowden MD Work Phone: [phone] [place] [address] 08-06-2024 08:10-0400 Heart rate 78 /min Dr. Jadyn Bowden MD Work Phone: [phone] [place] [address] 08-06-2024 08:10-0400 Respiratory rate 16 /min Dr. Jadyn Bowden MD Work Phone: [facility] 08-06-2024 08:10-0400 Systolic blood pressure 180 mm[Hg] Dr. Jadyn Bowden MD Work Phone: [facility] 06-19-2024 12:47-0500 Body mass index (BMI) [Ratio] 31.66 kg/m2 Jessie Hurt TIMING INSPECTOR.COMPUTER LANGUAGE CODER Work Phone: [facility] 06-19-2024 12:47-0500 Body weight 76 kg Jessie Hurt TIMING INSPECTOR.COMPUTER LANGUAGE CODER Work Phone: [facility] 06-19-2024 12:47-0500 Diastolic blood pressure 77 mm[Hg] Jessie Hurt TIMING INSPECTOR.COMPUTER LANGUAGE CODER Work Phone: [facility] 06-19-2024 12:47-0500 Heart rate 76 /min Jessie Hurt TIMING INSPECTOR.COMPUTER LANGUAGE CODER Work Phone: [facility] 06-19-2024 12:47-0500 Respiratory rate 16 /min Jessie Hurt TIMING INSPECTOR.COMPUTER LANGUAGE CODER Work Phone: [facility] 06-19-2024 12:47-0500 Systolic blood pressure 121 mm[Hg] Jessie Hurt TIMING INSPECTOR.COMPUTER LANGUAGE CODER Work Phone: [facility] 06-04-2024 11:43-0500 Body mass index (BMI) [Ratio] 31.78 kg/m2 Ayanna FaganAmanda TIMING INSPECTOR.IOS PROGRAMMER Work Phone: [facility] 06-04-2024 11:43-0500 Body temperature 97.39 [degF] Ayanna Patel TIMING INSPECTOR.IOS PROGRAMMER Work Phone: [facility] 06-04-2024 11:43-0500 Body weight 76.3 kg Ayanna Patel TIMING INSPECTOR.IOS PROGRAMMER Work Phone: [facility] 06-04-2024 11:43-0500 Diastolic blood pressure 72 mm[Hg] Ayanna Patel TIMING INSPECTOR.IOS PROGRAMMER Work Phone: [facility] 06-04-2024 11:43-0500 Heart rate 63 /min Ayanna Patel TIMING INSPECTOR.IOS PROGRAMMER Work Phone: [facility] 06-04-2024 11:43-0500 SaO2% (BldA) [Mass fraction] 99 % Ayanna Patel TIMING INSPECTOR.IOS PROGRAMMER Work Phone: [facility] 06-04-2024 11:43-0500 Systolic blood pressure 134 mm[Hg] Ayanna Patel TIMING INSPECTOR.IOS PROGRAMMER Work Phone: [facility] 12-15-2023 12:20-0400 Body height 154.9 cm Pulm Wstr Work Phone: [facility] 12-15-2023 12:20-0400 Body mass index (BMI) [Ratio] 31.93 kg/m2 Pulm Wstr Work Phone: [facility] 12-15-2023 12:20-0400 Body weight 76.66 kg Pulm Wstr Work Phone: [facility] 12-15-2023 12:20-0400 Heart rate 62 /min Pulm Wstr Work Phone: [facility] 12-15-2023 12:20-0400 Respiratory rate 12 /min Pulm Wstr Work Phone: [facility] 12-15-2023 12:20-0400 SaO2% (BldA) [Mass fraction] 97 % Pulm Wstr Work Phone: [facility] 12-14-2023 14:31-0400 Body height 154.9 cm Jadyn Bowden MD Work Phone: [facility] 12-14-2023 14:31-0400 Body mass index (BMI) [Ratio] 31.89 kg/m2 Jadyn Bowden MD Work Phone: [facility] 12-14-2023 14:31-0400 Body weight 76.57 kg Jadyn Bowden MD Work Phone: [facility] 12-14-2023 14:31-0400 Diastolic blood pressure 80 mm[Hg] Jadyn Bowden MD Work Phone: [facility] 12-14-2023 14:31-0400 Heart rate 70 /min Jadyn Bowden MD Work Phone: [facility] 12-14-2023 14:31-0400 Respiratory rate 18 /min Jadyn Bowden MD Work Phone: [facility] 12-14-2023 14:31-0400 SaO2% (BldA) [Mass fraction] 100 % Jadyn Bowden MD Work Phone: [facility] 12-14-2023 14:31-0400 Systolic blood pressure 128 mm[Hg] Jadyn Bowden MD Work Phone: [facility] 09-23-2023 10:49-0400 Body mass index (BMI) [Ratio] 31.37 kg/m2 Jessie Hurt APRN.CNS Work Phone: [facility] 09-23-2023 10:49-0400 Body weight 75.3 kg Jessie Hurt TIMING INSPECTOR.COMPUTER LANGUAGE CODER Work Phone: [facility] 09-23-2023 10:49-0400 Diastolic blood pressure 74 mm[Hg] Jessie Hurt TIMING INSPECTOR.COMPUTER LANGUAGE CODER Work Phone: [facility] 09-23-2023 10:49-0400 Heart rate 73 /min Jessie Hurt TIMING INSPECTOR.COMPUTER LANGUAGE CODER Work Phone: [facility] 09-23-2023 10:49-0400 Respiratory rate 16 /min Jessie Hurt TIMING INSPECTOR.COMPUTER LANGUAGE CODER Work Phone: [facility] 09-23-2023 10:49-0400 Systolic blood pressure 136 mm[Hg] Jessie Hurt TIMING INSPECTOR.COMPUTER LANGUAGE CODER Work Phone: [facility] 06-07-2022 09:41-0500 Body weight 72.58 kg Jessie Hurt TIMING INSPECTOR.COMPUTER LANGUAGE CODER Work Phone: [facility] 06-07-2022 09:41-0500 Diastolic blood pressure 82 mm[Hg] Jessie Hurt TIMING INSPECTOR.COMPUTER LANGUAGE CODER Work Phone: [facility] 06-07-2022 09:41-0500 Heart rate 72 /min Jessie Hurt TIMING INSPECTOR.COMPUTER LANGUAGE CODER Work Phone: [facility] 06-07-2022 09:41-0500 Respiratory rate 16 /min Jessie Hurt TIMING INSPECTOR.COMPUTER LANGUAGE CODER Work Phone: [facility] 06-07-2022 09:41-0500 SaO2% (BldA) [Mass fraction] 98 % Jessie Hurt TIMING INSPECTOR.COMPUTER LANGUAGE CODER Work Phone: [facility] 06-07-2022 09:41-0500 Systolic blood pressure 136 mm[Hg] Jessie Hurt TIMING INSPECTOR.COMPUTER LANGUAGE CODER Work Phone: [facility] 06-03-2022 11:25-0500 Body temperature 98.01 [degF] Jessie Hurt TIMING INSPECTOR.COMPUTER LANGUAGE CODER Work Phone: [facility] 06-03-2022 11:25-0500 Body weight 71.67 kg Jessie Hurt TIMING INSPECTOR.COMPUTER LANGUAGE CODER Work Phone: [facility] 06-03-2022 11:25-0500 Diastolic blood pressure 78 mm[Hg] Jessie Hurt TIMING INSPECTOR.COMPUTER LANGUAGE CODER Work Phone: [facility] 06-03-2022 11:25-0500 Heart rate 82 /min Jessie Hurt TIMING INSPECTOR.COMPUTER LANGUAGE CODER Work Phone: [facility] 06-03-2022 11:25-0500 Respiratory rate 16 /min Jessie Hurt TIMING INSPECTOR.COMPUTER LANGUAGE CODER Work Phone: [facility] 06-03-2022 11:25-0500 SaO2% (BldA) [Mass fraction] 98 % Jessie Hrut TIMING INSPECTOR.COMPUTER LANGUAGE CODER Work Phone: [facility] 06-03-2022 11:25-0500 Systolic blood pressure 128 mm[Hg] Jessie Hurt TIMING INSPECTOR.COMPUTER LANGUAGE CODER Work Phone: [facility] 05-26-2022 11:25-0500 Body temperature 98.1 [degF] Lyn Praisler-Wood TIMING INSPECTOR.IOS PROGRAMMER Work Phone: [facility] 05-26-2022 11:25-0500 Body weight 75.66 kg Lyn Praisler-Wood TIMING INSPECTOR.IOS PROGRAMMER Work Phone: [facility] 05-26-2022 11:25-0500 Diastolic blood pressure 78 mm[Hg] Lyn Praisler-Wood TIMING INSPECTOR.IOS PROGRAMMER Work Phone: [facility] 05-26-2022 11:25-0500 Heart rate 79 /min Lyn Praisler-Wood TIMING INSPECTOR.IOS PROGRAMMER Work Phone: [facility] 05-26-2022 11:25-0500 Respiratory rate 21 /min Lyn Praisler-Wood TIMING INSPECTOR.IOS PROGRAMMER Work Phone: [facility] 05-26-2022 11:25-0500 SaO2% (BldA) [Mass fraction] 98 % Lyn Praisler-Wood TIMING INSPECTOR.IOS PROGRAMMER Work Phone: [facility] 05-26-2022 11:25-0500 Systolic blood pressure 122 mm[Hg] Lyn Bernard APRN.IOS PROGRAMMER Work Phone: [facility] 11-27-2021 02:15-0400 Body temperature 98.2 [degF] [facility] Work Phone: 11-27-2021 02:15-0400 Diastolic blood pressure 107 mm[Hg] [facility] Work Phone: 11-27-2021 02:15-0400 Heart rate 82 /min [facility] Work Phone: 11-27-2021 02:15-0400 Respiratory rate 20 /min [facility] Work Phone: 11-27-2021 02:15-0400 SaO2% (BldA) [Mass fraction] 98 % [facility] Work Phone: 11-27-2021 02:15-0400 Systolic blood pressure 164 mm[Hg] [facility] Work Phone: 11-26-2021 23:23-0400 Body height 152.4 cm [facility] Work Phone: 11-26-2021 23:23-0400 Body mass index (BMI) [Ratio] 31.6 kg/m2 [facility] Work Phone: 11-26-2021 23:23-0400 Body weight 73.48 kg [facility] Work Phone: 10-13-2021 08:07-0400 Diastolic blood pressure 88 mm[Hg] Jessie Hurt TIMING INSPECTOR.COMPUTER LANGUAGE CODER Work Phone: [facility] 10-13-2021 08:07-0400 Systolic blood pressure 160 mm[Hg] Jessie Hurt TIMING INSPECTOR.COMPUTER LANGUAGE CODER Work Phone: [facility] 10-13-2021 08:06-0400 Body weight 72.58 kg Jessie Hurt TIMING INSPECTOR.COMPUTER LANGUAGE CODER Work Phone: [facility] 10-13-2021 08:06-0400 Heart rate 72 /min Jessie Hurt TIMING INSPECTOR.COMPUTER LANGUAGE CODER Work Phone: [facility] 10-13-2021 08:06-0400 Respiratory rate 16 /min Jessie Hurt TIMING INSPECTOR.COMPUTER LANGUAGE CODER Work Phone: [facility] Encounters Encounter Date Encounter Type Care Provider Facility Start: 12-28-2024 End: 12-28-2024 Patient encounter procedure Debbi KNOTT -[facility] Work Phone: Start: 12-28-2024 End: 12-28-[address] Jadyn Bowden MD Work Phone: -[facility] Start: 12-28-2024 End: 12-28-2024 ambulatory Deena HANDY Facility:[facility] Start: 11-29-2024 End: 12-10-2024 Telephone encounter Luis MALDONADO [facility] Start: 11-12-2024 End: 11-12-2024 Telephone encounter Luis MALDONADO [facility] Start: 11-08-2024 End: 11-08-2024 Office outpatient visit 25 minutes Jessie Hurt TIMING INSPECTOR.COMPUTER LANGUAGE CODER Work Phone: [facility] [place] Comment on above: Recurrent UTI (Prima ry Dx); UTI symptoms; Macular degeneration, unspecified laterality, unspecified type; Self-care deficit Start: 11-08-2024 End: 11-08-2024 ambulatory [facility] Facility:[facility] Start: 09-14-2024 End: 11-14-2024 Follow-up encounter Jessie Hurt APRN.COMPUTER LANGUAGE CODER Work Phone: [facility] [place] Start: 09-13-2024 End: 09-13-2024 ambulatory [facility] Facility:[facility] Start: 09-10-2024 End: 09-10-2024 Telephone encounter Jadyn Bowden MD Work Phone: [facility] [place] Comment on above: UTI Start: 09-10-2024 End: 09-10-2024 Office outpatient visit 15 minutes Jessie Hurt TIMING INSPECTOR.COMPUTER LANGUAGE CODER Work Phone: [facility] [place] Comment on above: UTI symptoms (Primar y Dx); Positional lightheadedness Start: 09-10-2024 End: 09-10-2024 ambulatory JESSIE HURT Facility:[facility] Start: 08-17-2024 End: 08-17-2024 ambulatory Jadyn Lilia Bowden Facility:[facility] Start: 08-06-2024 End: 08-06-[address] Jadyn Bowden MD Work Phone: [facility] Work Phone: Start: 08-06-2024 End: 08-06-[address] Rick Bermudez MD -Laboratory Work Phone: Start: 08-06-2024 End: 08-06-[address] Rick Bermudez MD -[facility] Work Phone: Start: 08-06-2024 End: 08-06-2024 ambulatory Jadyn D [place] Facility:[facility] Start: 08-06-2024 End: 08-06-2024 ambulatory Jadyn D [facility] Facility:[facility] Start: 08-02-2024 End: 08-02-2024 Telephone encounter Jessiemagnolia Whitneys TIMING INSPECTOR.COMPUTER LANGUAGE CODER Work Phone: [facility] [place] Comment on above: Results (UTI) Start: 06-29-2024 End: 06-29-2024 [facility] Start: 06-29-2024 End: 06-29-2024 Telephone encounter Jadyn Bowden MD Work Phone: [facility] [place] Comment on above: Results Start: 06-19-2024 End: 06-19-2024 ambulatory [facility] Facility:[facility] Start: 06-19-2024 End: 06-19-2024 Office outpatient visit 25 minutes Jessie Hurt TIMING INSPECTOR.COMPUTER LANGUAGE CODER Work Phone: [facility] [place] Comment on above: Controlled type 2 di abetes mellitus without complication, without long-term current use of insulin (HCC) (Primary Dx); Microalbuminuria; Mixed hyperlipidemia; S/P coronary artery stent placement; Primary hypertension; PAF (paroxysmal atrial fibrillation) ([facility]); Vitamin D deficiency; Encounter for immunization; Lichen planus Start: 06-04-2024 End: 06-04-2024 ambulatory AYANNA M AMANDA Facility:[facility] Start: 06-04-2024 End: 06-04-2024 Patient encounter procedure Ayanna M Amanda TIMING INSPECTOR.IOS PROGRAMMER Work Phone: [facility] [place] Comment on above: Dysuria (Primary Dx) Start: 03-20-2024 ambulatory Debbi Villanueva NP Facili ty:[facility] Start: 03-19-2024 ambulatory Jadyn D [place] Facilit y:[facility] Start: 03-19-2024 End: 03-19-2024 ambulatory Jadyn D [place] Facility:[facility] Start: 03-02-2024 ambulatory Debbi Villanueva NP Facili ty:[facility] Start: 03-02-2024 ambulatory Jadyn D [place] Facilit y:[facility] Start: 03-02-2024 End: 03-02-2024 ambulatory Jadyn D [place] Facility:[facility] Start: 02-16-2024 End: 02-17-2024 ambulatory Rick Aidan Facility:[facility] Start: 12-19-2023 Telephone encounter Jadyn patterson MD Work Phone: [facility] [place] Comment on above: results of labs and lung studies Start: 12-15-2023 End: 12-15-2023 ambulatory [facility] Work Phone[facility] Comment on above: Spirometry Start: 12-15-2023 End: 12-15-2023 Patient encounter procedure [facility] Work Phone: [facility] Start: 12-14-2023 End: 12-14-2023 ambulatory JADYN D [place] Facility:[facility] Start: 12-14-2023 End: 12-14-2023 Patient encounter procedure Jadyn Bowden MD Work Phone: [facility] [place] Comment on above: Medicare annual [facility] visit, subsequent (Primary Dx); Controlled type 2 diabetes mellitus without complication, without long-term current use of insulin (HCC); Lesion of skin of face; Skin lesion of chest wall; History of basal cell carcinoma (BCC) excision; COELLO (dyspnea on exertion); BENIGN HYPERTENSION; Mixed hyperlipidemia; Renal infarct (HCC); Aortic mural thrombus (HCC); Vitamin D deficiency; Abnormal CXR; Encounter for screening examination for other mental health and behavioral disorders; Screening for depression Start: 09-23-2023 Telephone encounter Jadyn patterson MD Work Phone: [facility] [place] Comment on above: Pharmacy Call Start: 09-23-2023 End: 09-23-2023 Office outpatient visit 15 minutes Jessie Hurt TIMING INSPECTOR.COMPUTER LANGUAGE CODER Work Phone: [facility] [place] Comment on above: Lower abdominal pain (Primary Dx); Dysuria; Lichen planus; UTI symptoms Start: 07-14-2023 ambulatory [facility] Boyd [facility] Comment on above: Population Health Na vigation Outreach (Med adherence) Start: 06-11-2022 Telephone encounter Jessie vasques TIMING INSPECTOR.COMPUTER LANGUAGE CODER Work Phone: [facility] [place] Comment on above: Results Start: 06-07-2022 End: 06-07-2022 Office outpatient visit 15 minutes Jessie Hurt TIMING INSPECTOR.COMPUTER LANGUAGE CODER Work Phone: [facility] [place] Comment on above: Acute cough (Primary Dx) Start: 06-04-2022 Telephone encounter Jessie vasques TIMING INSPECTOR.COMPUTER LANGUAGE CODER Work Phone: [facility] [place] Comment on above: Results (CXR) Start: 06-03-2022 End: 06-03-2022 Subsequent hospital visit by physician Raquel [facility] [place] Work Phone: Radiology Comment on above: Acute cough [R05.1] Start: 06-03-2022 End: 06-03-2022 Office outpatient visit 25 minutes Jessie Hurt TIMING INSPECTOR.COMPUTER LANGUAGE CODER Work Phone: [facility] [place] Comment on above: Acute cough (Primary Dx); Mixed hyperlipidemia; Controlled type 2 diabetes mellitus without complication, without long-term current use of insulin (HCC); Viral URI with cough; Shortness of breath Start: 05-26-2022 End: 05-26-2022 Patient encounter procedure Lynjos Bernard APRN.IOS PROGRAMMER Work Phone: [facility] Comment on above: Viral URI with cough (Primary Dx); Laryngitis Start: 03-03-2022 ambulatory [facility]ee Ro[facility] [place] Comment on above: Population Health Na vigation Outreach (HCC/) Start: 11-27-2021 [facility] Start: 11-02-2021 Refill Jadyn stevens MD Work Phone: [facility] [place] Comment on above: Refill Request Start: 10-13-2021 Telephone encounter Jessie vasques APRN.COMPUTER LANGUAGE CODER Work Phone: [facility] [place] Comment on above: Xray Results Start: 10-13-2021 End: 10-13-2021 Subsequent hospital visit by physician Raquel [facility] Work Phone: Radiology Comment on above: Abnormal prominence of clavicle [Q74.0] Start: 10-13-2021 End: 10-13-2021 Patient encounter procedure Jessie Hurt APRN.COMPUTER LANGUAGE CODER Work Phone: [facility] [place] Comment on above: Abnormal prominence of clavicle (Primary Dx); Adjustment insomnia Start: 10-30-2020 End: 10-30-2020 Subsequent hospital visit by physician Raquel [facility] Work Phone: Radiology Comment on above: Injury of left foot, initial encounter [S99.922A] Start: 09-06-2017 Ambulatory FELICE PEARSON Facility :[facility] Start: 03-08-2017 End: 03-08-[address] [facility] Procedures Date Procedure Procedure Detail Performing Clinician Start: 11-08-2024 Urnls dip stick/tabl et rgnt auto w/o microscopy Jessie Hurt APRN.COMPUTER LANGUAGE CODER Work Phone: Start: 09-10-2024 Urnls dip stick/tabl et rgnt auto w/o microscopy Jessie Hurt TIMING INSPECTOR.COMPUTER LANGUAGE CODER Work Phone: Start: 12-15-2023 Co diffusing capacity L sobia Bowden MD Work Phone: Start: 12-14-2023 Urine albumin quantitative Jadyn Bowden MD Work Phone: Start: 12-14-2023 Hemoglobin A1c/Hemoglobin.total in Blood Jadyn Bowden MD Work Phone: Start: 12-14-2023 Adult depression screening assessment Pulm [facility] Work Phone: Start: 09-23-2023 Urnls dip stick/tabl et rgnt auto w/o microscopy Jessie Hurt TIMING INSPECTOR.COMPUTER LANGUAGE CODER Work Phone: Start: 06-03-2022 Radiologic exam ches t 2 views Jessie Hurt TIMING INSPECTOR.COMPUTER LANGUAGE CODER Work Phone: Start: 05-26-2022 STREP A MOLECULAR (POC) Lyn Bernard TIMING INSPECTOR.IOS PROGRAMMER Work Phone: Start: 11-26-2021 Plain chest X-ray Start: 10-13-2021 Radex clavicle complete Jessie Hurt TIMING INSPECTOR.COMPUTER LANGUAGE CODER Work Phone: Start: 10-30-2020 Radex foot complete minimum 3 views Jessie Hurt TIMING INSPECTOR.COMPUTER LANGUAGE CODER Work Phone: Start: 07-15-2015 History of placement of stent for coronary artery disease S/P coronary artery stent placement Jessie Hurt TIMING INSPECTOR.COMPUTER LANGUAGE CODER Work Phone: H/O: surgery History of basal cell carcinoma (BCC) excision Jadyn Bowden MD Work Phone: History of placement of stent for coronary artery disease S/P coronary artery stent placement Jessie Hurt TIMING INSPECTOR.COMPUTER LANGUAGE CODER Work Phone: Plan of Treatment Date Care Activity Detail Author Start: 06-19-2025 Covid-19 Vaccine (#1) Covid-19 Vacci ne (#1) [facility] Comment on above: Postponed from 08/23 (Declined at this time) Start: 06-19-2025 Hepatitis B screening Urine Al bumin:Creatinine Ratio [facility] Start: 06-19-2025 Hepatitis B surface antibody level LDL Cholesterol [facility] Start: 01-21-2025 Influenza vaccination C [facility] Start: 12-21-2024 End: 12-21-2024 Patient encounter procedure 12/21/2024 1:40 PM EDT Office Visit [facility] [address] [place], [place] [id number] Jadyn Bowden MD [address] [place] [address] Medicare Wellness [facility] [place] Comment on above: Medicare Wellness Start: 12-17-2024 Hemoglobin A1c measurement HbA1C [facility] Start: 12-13-2024 Anxiety Screening Anxiety Screening [facility] Start: 12-13-2024 Depression Screening Depression Scre ening [facility] Start: 12-13-2024 Hepatitis B screening Urine Al bumin:Creatinine Ratio [facility] Start: 11-19-2024 Influenza vaccination Influenza Vacc ine (#1) [facility] Comment on above: Postponed from 01/21 (Declined at this time) Start: 06-29-2024 End: 09-28-2024 Bacteria identified in Urine by Culture BACTERIAL CULTURE, URINE Microbiology Routine UTI symptoms Expected: 06/29/2024, Expires: 09/28/2024 [facility] Work Phone: Comment on above: Expected: 06/29/2024 , Expires: 09/28/2024 Start: 06-29-2024 End: 09-28-2024 Urinalysis complete panel - Urine URINALYSIS, WITH MICROSCOPIC Lab Routine UTI symptoms Expected: 06/29/2024, Expires: 09/28/[address] [facility] Comment on above: Expected: 06/29/2024 , Expires: 09/28/2024 Start: 06-19-2024 End: 09-18-2024 25-hydroxyvitamin D3 [Mass/volume] in Serum or Plasma [facility] Comment on above: Expected: 06/19/2024 , Expires: 09/18/2024 Start: 06-19-2024 End: 09-18-2024 CBC W Auto Differential panel - Blood [facility] Comment on above: Expected: 06/19/2024 , Expires: 09/18/2024 Start: 06-19-2024 End: 09-18-2024 Comprehensive metabolic 2000 panel - Serum or Plasma [facility] Comment on above: Expected: 06/19/2024 , Expires: 09/18/2024 Start: 06-19-2024 End: 09-18-2024 Hemoglobin A1c in Blood [facility] Work Phone: Comment on above: Expected: 06/19/2024 , Expires: 09/18/2024 Start: 06-19-2024 End: 09-18-2024 LIPID PANEL, NONFASTING [facility] Comment on above: Expected: 06/19/2024 , Expires: 09/18/2024 Start: 06-19-2024 End: 09-18-2024 Microalbumin/Creatinine [Mass Ratio] in Urine [facility] Comment on above: Expected: 06/19/2024 , Expires: 09/18/2024 Start: 06-19-2024 End: 09-18-2024 Urinalysis complete panel - Urine [facility] Comment on above: Expected: 06/19/2024 , Expires: 09/18/2024 Start: 06-18-2024 Hepatitis B surface antibody level LDL Cholesterol [facility] Start: 06-18-2024 End: 06-18-2024 Patient encounter procedure 06/18/2024 11:00 AM EST Office Visit [facility] [address] [place] [address] Jessie Hurt APRN.COMPUTER LANGUAGE CODER [address] [place] [address] 6 month follow up [facility] Comment on above: 6 month follow up Start: 06-15-2024 Hemoglobin A1c measurement HbA1C [facility] Start: 06-04-2024 End: 09-03-2024 Bacteria identified in Urine by Culture [facility] Work Phone: Comment on above: Expected: 06/04/2024 , Expires: 09/03/2024 Start: 05-23-2024 Advance Directive Discussion Advance Directive Discussion [facility] Start: 05-23-2024 Medicare Advantage Annual Wellness Visit Medicare Advantage Annual Wellness Visit [facility] Start: 05-15-2024 End: 08-14-2024 25-hydroxyvitamin D3 [Mass/volume] in Serum or Plasma VITAMIN D 25 HYDROXY Lab Routine Vitamin D deficiency Expected: 05/15/2024 (Approximate), Expires: 08/14/[address] [facility] Comment on above: Expected: 05/15/2024 (Approximate), Expires: 08/14/2024 Start: 05-15-2024 End: 08-14-2024 CBC panel - Blood by Automated count COMPLETE BLOOD COUNT Lab Routine Controlled type 2 diabetes mellitus without complication, without long-term current use of insulin (HCC) BENIGN HYPERTENSION Expected: 05/15/2024 (Approximate), Expires: 08/14/[address] [facility] Comment on above: Expected: 05/15/2024 (Approximate), Expires: 08/14/2024 Start: 05-15-2024 End: 08-14-2024 Comprehensive metabolic 2000 panel - Serum or Plasma COMPREHENSIVE METABOLIC PANEL Lab Routine Controlled type 2 diabetes mellitus without complication, without long-term current use of insulin (HCC) BENIGN HYPERTENSION Expected: 05/15/2024 (Approximate), Expires: 08/14/[address] [facility] Comment on above: Expected: 05/15/2024 (Approximate), Expires: 08/14/2024 Start: 05-15-2024 End: 08-14-2024 Hemoglobin A1c in Blood HEMOGLOBIN A1C Lab Routine Controlled type 2 diabetes mellitus without complication, without long-term current use of insulin (HCC) Expected: 05/15/2024 (Approximate), Expires: 08/14/2024 [facility] Work Phone: Comment on above: Expected: 05/15/2024 (Approximate), Expires: 08/14/2024 Start: 05-15-2024 End: 08-14-2024 Lipid 1996 panel - Serum or Plasma LIPID PANEL BASIC Lab Routine Controlled type 2 diabetes mellitus without complication, without long-term current use of insulin (HCC) BENIGN HYPERTENSION Mixed hyperlipidemia Expected: 05/15/2024 (Approximate), Expires: 08/14/[address] [facility] Comment on above: Expected: 05/15/2024 (Approximate), Expires: 08/14/2024 Start: 05-15-2024 End: 08-14-2024 Microalbumin/Creatinine [Mass Ratio] in Urine ALBUMIN/CREATININE RATIO, URINE Lab Routine Microalbuminuria Expected: 05/15/2024 (Approximate), Expires: 08/14/2024 [facility] Work Phone: Comment on above: Expected: 05/15/2024 (Approximate), Expires: 08/14/2024 Start: 05-15-2024 End: 08-14-2024 Urinalysis complete panel - Urine URINALYSIS, WITH MICROSCOPIC Lab Routine Microalbuminuria Expected: 05/15/2024 (Approximate), Expires: 08/14/[address] [facility] Comment on above: Expected: 05/15/2024 (Approximate), Expires: 08/14/2024 Start: 01-22-2024 Influenza vaccination C [facility] Start: 12-18-2023 Covid-19 Vaccine (#1) Covid-19 Vacci ne (#1) [facility] Comment on above: Postponed from 08/23 (Declined at this time) Start: 12-18-2023 Urine microalbumin profile DTaP,Tdap,Td Vaccine (2 - Td or Tdap) [facility] Comment on above: Postponed from 01/11 (Declined at this time) Start: 12-17-2023 Hemoglobin A1c measurement HbA1C [facility] Start: 12-14-2023 End: 12-14-2023 Patient encounter procedure 12/14/2023 2:00 PM EDT Office Visit [facility] [address] [place] [address] Jadyn Bowden MD [address] [place], [place] [id number] next december 13 f/u [facility] Comment on above: next december 13 f/u Souleymane patterson Start: 11-20-2023 Influenza vaccination Influenza Vacc ine (#1) [facility] Comment on above: Postponed from 01/21 (Declined at this time) Start: 06-07-2023 Hepatitis B screening URINE AL BUMIN:CREATININE RATIO [facility] Start: 06-07-2023 Hepatitis B surface antibody level LDL CHOLESTEROL [facility] Start: 05-23-2023 Behavioral Health Screening Behavioral Health Screening [facility] Start: 12-05-2022 Hemoglobin A1c/Hemoglobin.total in Blood HBA1C [facility] Start: 11-20-2022 End: 05-27-2023 CBC W Auto Differential panel - Blood CBC + DIFF Lab Routine Controlled type 2 diabetes mellitus without complication, without long-term current use of insulin (HCC) Expected: 11/20/2022 (Approximate), Expires: 05/27/2023 [facility] Work Phone: Comment on above: Expected: 11/20/2022 (Approximate), Expires: 05/27/2023 Start: 11-20-2022 End: 05-27-2023 Comprehensive metabolic 2000 panel - Serum or Plasma COMP METABOLIC PANEL Lab Routine Controlled type 2 diabetes mellitus without complication, without long-term current use of insulin (HCC) Expected: 11/20/2022 (Approximate), Expires: 05/27/2023 [facility] Work Phone: Comment on above: Expected: 11/20/2022 (Approximate), Expires: 05/27/2023 Start: 11-20-2022 End: 05-27-2023 Hemoglobin A1c in Blood HGB A1C Lab Routine Controlled type 2 diabetes mellitus without complication, without long-term current use of insulin (HCC) Expected: 11/20/2022 (Approximate), Expires: 05/27/2023 [facility] Work Phone: Comment on above: Expected: 11/20/2022 (Approximate), Expires: 05/27/2023 Start: 11-20-2022 End: 05-27-2023 Lipid 1996 panel - Serum or Plasma LIPID PANEL BASIC Lab Routine Controlled type 2 diabetes mellitus without complication, without long-term current use of insulin (HCC) Expected: 11/20/2022 (Approximate), Expires: 05/27/2023 [facility] Work Phone: Comment on above: Expected: 11/20/2022 (Approximate), Expires: 05/27/2023 Start: 06-03-2022 End: 08-03-2022 ALBUMIN/CREAT RATIO RND UR ALBUMIN/CREAT RATIO RND UR Lab Routine Controlled type 2 diabetes mellitus without complication, without long-term current use of insulin (HCC) Expected: 06/03/2022, Expires: 08/03/2022 [facility] Work Phone: Comment on above: Expected: 06/03/2022 , Expires: 08/03/2022 Start: 06-03-2022 End: 08-03-2022 CBC W Auto Differential panel - Blood CBC + DIFF Lab Routine Controlled type 2 diabetes mellitus without complication, without long-term current use of insulin (HCC) Expected: 06/03/2022, Expires: 08/03/2022 [facility] Work Phone: Comment on above: Expected: 06/03/2022 , Expires: 08/03/2022 Start: 06-03-2022 End: 08-03-2022 Comprehensive metabolic 2000 panel - Serum or Plasma COMP METABOLIC PANEL Lab Routine Controlled type 2 diabetes mellitus without complication, without long-term current use of insulin (HCC) Expected: 06/03/2022, Expires: 08/03/2022 [facility] Work Phone: Comment on above: Expected: 06/03/2022 , Expires: 08/03/2022 Start: 06-03-2022 End: 08-03-2022 Hemoglobin A1c in Blood HGB A1C Lab Routine Controlled type 2 diabetes mellitus without complication, without long-term current use of insulin (HCC) Expected: 06/03/2022, Expires: 08/03/2022 [facility] Work Phone: Comment on above: Expected: 06/03/2022 , Expires: 08/03/2022 Start: 06-03-2022 End: 08-03-2022 Lipid 1996 panel - Serum or Plasma LIPID PANEL BASIC Lab Routine Mixed hyperlipidemia Controlled type 2 diabetes mellitus without complication, without long-term current use of insulin (HCC) Expected: 06/03/2022, Expires: 08/03/2022 [facility] Work Phone: Comment on above: Expected: 06/03/2022 , Expires: 08/03/2022 Start: 05-26-2022 Urine microalbumin profile DTAP,TDAP,TD (2 - Td or Tdap) [facility] Comment on above: Postponed from 01/11 (Declined at this time) Start: 05-23-2022 ADVANCE DIRECTIVE DISCUSSION ADVANCE DIRECTIVE DISCUSSION [facility] Start: 05-23-2022 DEPRESSION ASSESSMENT DEPRESSION ASS ESSMENT [facility] Start: 01-21-2022 Influenza vaccination INFLUENZA (#1) [facility] Start: 11-27-2021 Verification routine [facility] Work Phone: Start: 11-27-2021 Admission procedure [place] [facility] Work Phone: Start: 11-26-2021 [facility] Work Phone: Start: 10-30-2021 COVID-19 VACCINE (#1) COVID-19 VACCI NE (#1) [facility] Comment on above: Postponed from 08/23 (Declined at this time) Start: 10-30-2021 Hepatitis B surface antibody level LDL CHOLESTEROL [facility] Start: 05-23-2021 ADVANCE DIRECTIVE DISCUSSION ADVANCE DIRECTIVE DISCUSSION [facility] Start: 05-23-2021 DEPRESSION ASSESSMENT DEPRESSION ASS ESSMENT [facility] Start: 05-01-2021 Hemoglobin A1c/Hemoglobin.total in Blood HBA1C [facility] Start: 01-02-2019 Hepatitis B screening URINE AL BUMIN:CREATININE RATIO [facility] Start: 01-11-2017 Urine microalbumin profile [facility] Start: 08-23-2010 RSV Vaccine (1 - 1-d ose 75+ series) RSV Vaccine (1 - 1-dose 75+ series) [facility] Start: 1995 RSV Vaccine (1 - 1-d ose 60+ series) RSV Vaccine (1 - 1-dose 60+ series) [facility] Start: 08-23-1940 COVID-19 VACCINE (#1) COVID-19 VACCI NE (#1) [facility] Start: 02-23-1936 COVID-19 VACCINE (#1) COVID-19 VACCI NE (#1) [facility] Bacteria identified in Urine by Culture URINE CULTURE Microbiology Routine Lower abdominal pain Dysuria 09/23/2023 10:58 AM EDT [facility] Bacteria identified in Urine by Culture BACTERIAL CULTURE, URINE Microbiology Routine UTI symptoms 09/10/2024 12:20 PM EDT [facility] Work Phone: Bacteria identified in Urine by Culture BACTERIAL CULTURE, URINE Microbiology Routine UTI symptoms 11/08/2024 11:47 AM EDT [facility] Work Phone: Basic metabolic 2008 panel with ionized calcium - Serum or Plasma [facility] CBC W Auto Different ial panel - Blood [facility] LUNG DIFFUSION CAPAC ITY (DLCO) LUNG DIFFUSION CAPACITY (DLCO) PFT Routine COELLO (dyspnea on exertion) Abnormal CXR 12/15/2023 11:40 AM EDT [facility] Work Phone: LUNG VOLUMES LUNG VOLUMES PFT Routine COELLO (dyspnea on exertion) Abnormal CXR 12/15/2023 11:40 AM EDT [facility] Work Phone: Measurement of occul t blood in stool specimen using immunoassay [facility] Patient referral [facility] Work Phone: End: 07-03-2023 Radiologic exam chest 2 views XR CHEST 2V FRONTAL/LAT Radiology Routine Acute cough Shortness of breath 1 Occurrences starting 06/03/2022 until 07/03/2023 [facility] Work Phone: Comment on above: 1 Occurrences starti ng 06/03/2022 until 07/03/2023 Radiologic exam ches t 2 views XR CHEST 2V FRONTAL/LAT Radiology Routine Acute cough Shortness of breath 06/03/2022 12:27 PM EST [facility] Work Phone: SPIROMETRY - BASELIN E AND POST DILATOR SPIROMETRY - BASELINE AND POST DILATOR PFT Routine COELLO (dyspnea on exertion) Abnormal CXR 12/15/2023 11:40 AM EDT [facility] Work Phone: UA DIP B/O UA DIP B/O Lab R outine Lower abdominal pain Dysuria Ordered: 09/23/2023 [facility] Work Phone: Comment on above: Ordered: 09/23/2023 [facility] c Immunizations Immunization Date Immunization Notes Care Provider Lesli sosa 03-02-2021 influenza, high-dose , quadrivalent vaccine (FLUZONE HIGH DOSE QUADRIVALENT) Jessie Hurt TIMING INSPECTOR.COMPUTER LANGUAGE CODER Work Phone: [facility] Work Phone: 03-02-2021 influenza virus vacc ine, unspecified formulation Hayley Boyd MA [facility] 02-20-2021 Influenza, high dose seasonal Dr. Jadyn Bowden MD Work Phone: [facility] 02-20-2021 influenza, high dose seasonal, preservative-free Hayley Boyd MA [facility] 03-31-2020 influenza, high-dose , quadrivalent vaccine (FLUZONE HIGH DOSE QUADRIVALENT) Jessie Hurt TIMING INSPECTOR.COMPUTER LANGUAGE CODER Work Phone: [facility] Work Phone: 02-27-2019 zoster vaccine recombinant Jessie Hurt TIMING INSPECTOR.COMPUTER LANGUAGE CODER Work Phone: [facility] Work Phone: 12-21-2018 zoster vaccine recombinant Jessie Hurt TIMING INSPECTOR.COMPUTER LANGUAGE CODER Work Phone: [facility] Work Phone: 03-04-2018 influenza, high dose seasonal, preservative-free Jessie Hurt TIMING INSPECTOR.COMPUTER LANGUAGE CODER Work Phone: [facility] 02-17-2017 influenza, high dose seasonal, preservative-free Jessie Hurt TIMING INSPECTOR.COMPUTER LANGUAGE CODER Work Phone: [facility] 09-06-2016 pneumococcal conjuga te vaccine, 13 valent Jessie Hurt TIMING INSPECTOR.COMPUTER LANGUAGE CODER Work Phone: [facility] 02-27-2016 influenza, high dose seasonal, preservative-free Jessie Hurt TIMING INSPECTOR.COMPUTER LANGUAGE CODER Work Phone: [facility] 03-13-2015 influenza, high dose seasonal, preservative-free Jessie Hurt TIMING INSPECTOR.COMPUTER LANGUAGE CODER Work Phone: [facility] Work Phone: 03-06-2015 Influenza virus vaccine [facility] 03-06-2015 influenza, seasonal, injectable, preservative free Jessie Hurt TIMING INSPECTOR.COMPUTER LANGUAGE CODER Work Phone: [facility] Work Phone: 02-27-2014 influenza, high dose seasonal, preservative-free Jessie Whitneys TIMING INSPECTOR.COMPUTER LANGUAGE CODER Work Phone: [facility] 03-03-2013 influenza virus vacc ine, unspecified formulation Jessie Hurt TIMING INSPECTOR.COMPUTER LANGUAGE CODER Work Phone: [facility] 04-01-2012 influenza virus vacc ine, unspecified formulation Jessie Hurt TIMING INSPECTOR.COMPUTER LANGUAGE CODER Work Phone: [facility] Work Phone: 03-26-2011 influenza virus vacc ine, unspecified formulation Jessie Hurt TIMING INSPECTOR.COMPUTER LANGUAGE CODER Work Phone: [facility] Work Phone: 02-26-2010 influenza virus vacc ine, unspecified formulation Jessie Hurt TIMING INSPECTOR.COMPUTER LANGUAGE CODER Work Phone: [facility] 02-22-2009 influenza virus vacc ine, unspecified formulation Jessie Whitneys TIMING INSPECTOR.COMPUTER LANGUAGE CODER Work Phone: [facility] Work Phone: 11-13-2008 pneumococcal polysaccharide vaccine, 23 valent Jessie Hurt TIMING INSPECTOR.COMPUTER LANGUAGE CODER Work Phone: [facility] Work Phone: 05-10-2008 zoster vaccine, live Jessie savage TIMING INSPECTOR.COMPUTER LANGUAGE CODER Work Phone: [facility] Work Phone: 03-28-2008 influenza virus vacc ine, unspecified formulation Jessie Whitneys TIMING INSPECTOR.COMPUTER LANGUAGE CODER Work Phone: [facility] Work Phone: 03-27-2007 influenza virus vacc ine, unspecified formulation Jessie Hurt TIMING INSPECTOR.COMPUTER LANGUAGE CODER Work Phone: [facility] Work Phone: 01-11-2007 tetanus toxoid, redu giovanny diphtheria toxoid, and acellular pertussis vaccine, adsorbed eJssie Hurt TIMING INSPECTOR.COMPUTER LANGUAGE CODER Work Phone: [facility] Work Phone: 04-12-1996 pneumococcal polysaccharide vaccine, 23 valent Jessie Hurt TIMING INSPECTOR.COMPUTER LANGUAGE CODER Work Phone: [facility] Work Phone: Payers Date Payer Category Payer Self-pay [id number] 2018 Medicare (Managed Care) [employer] HMO [id number] 2018 Unknown [employer]ENG LARA S AND BLUE SHIELD [employer] MED[employer] O [id number] 2018-Present [phone] [address] [place] [id number] [id number] 2018 Unknown [id number] 2018 Medicare [id number] 2015 Unknown [id number] Medicare SELF PAY INSURANCE [id number] Unknown [id number] Unknown [id number] Unknown [id number] Unknown [id number] Unknown [id number] Unknown [id number] Unknown [id number] Unknown [id number] Unknown [id number] Unknown [id number] Unknown [id number] Unknown [id number] Unknown [id number] Social History Date Type Detail Facility Start: 05-26-2022 End: 06-04-2024 Tobacco smoking status [facility] Ex-smoker [facility] End: 05-23-1956 History of tobacco use Current smoker [facility] Work Phone: Start: 05-26-2021 End: 11-08-2024 Alcohol intake Current non-drinker of alcohol (finding) [facility] Start: 1935 Sex Assigned At Not on file [facility] Start: 09-30-2020 End: 10-12-2021 Exposure to SARS-CoV-2 (event) Not sure [facility] Start: 11-27-2021 Tobacco smoking stat [facility] Unknown if ever smoked [facility] Work Phone: Start: 09-26-2019 None [facility] Start: 09-26-2019 Spouse/ Signif icant Other [facility] Start: 10-18-2019 Non-smoker [facility] Start: 1935 Sex Assigned At Female [facility] End: 05-23-1956 History of tobacco use Cigarette Smoker [facility] Start: 05-26-2022 End: 06-04-2024 Tobacco use and exposure Smokeless tobacco non-user [facility] Start: 06-04-2022 End: 06-20-2023 History of Social function [facility] Work Phone: Start: 06-04-2022 End: 06-20-2023 Tobacco use panel [facility] Work Phone: Adult Depression Screening Assessment [address] [facility] Work Phone: How often to you hav e a drink containing alcohol? Never [facility] Start: 02-04-2023 Tobacco smoking stat us [facility] Never smoked tobacco (finding) [facility] Start: 08-13-2024 Sex Female (finding) [facility] Medical Equipment Procedure Code Equipment Code Equipment Original Text Equipment Identifier Dates [id number], [id number] Start: 06-02-2011 End: 06-20-2023 Comment on above: Use as instructed 1 Each once daily. U se as instructed Functional Status Date Assessment Result Facility 06-25-2014 Are you deaf, or do you have serious difficulty hearing No 06/25/2014 11:14 AM Suyapa Bhatt RN No [facility] 06-25-2014 Are you blind, or do you have serious difficulty seeing, even when wearing glasses No 06/25/2014 11:14 AM Suyapa Bhatt RN No [facility] 06-25-2014 Do you have serious difficulty walking or climbing stairs No 06/25/2014 11:14 AM Suyapa Bhatt RN No [facility] 06-25-2014 Do you have difficul ty dressing or bathing No 06/25/2014 11:14 AM Suyapa Bhatt RN No [facility] 06-25-2014 Because of a physica l, mental, or emotional condition, do you have difficulty doing errands alone such as visiting a physician's office or shopping No 06/25/2014 11:14 AM Suyapa Bhatt, LILIAN No [facility] Mental Status Date Assessment Result Facility 11-27-2021 Cognitive function Awake;Alert;A ppropriate; Follows Commands [facility] Work Phone: 06-25-2014 Because of a physica l, mental, or emotional condition, do you have serious difficulty concentrating, remembering, or making decisions No 06/25/2014 11:14 AM Suyapa Bhatt RN No [facility] Clinical Notes 12-28-2016 to 12-28-2024 Note Date & Type Note Facility 12-28-2024 Evaluation note Diagnosis Onset Date Resolution Blood in stool acute December 10:31am Epistaxis acute December 28, 2024 10:31am Aortic valve stenosis chronic Dec us2024 10:31am Coronary artery disease chronic A ugust 2024 10:31am Essential hypertension chronic [facility] 2024 10:31am PAF (paroxysmal atrial fibrillation) chronic December 28, 2024 10:31am Presence of stent in coronary artery May, chronic December 28, 2024 10:31am Pulmonary hypertension chronic [facility] 2024 10:31am Pure hypercholesterolemia chronic December 28, 2024 10:31am [facility] Work Phone: [phone] 389-131007-21-2025 Telephone encounter Note* Telephone Encounter - Luis Avina MSW - 12/10/2024 12:02 PM EDT Reji spoke with patient regarding below messages. Patient notes that right now her granddaughter is staying with her through December. Patient notes then her granddaughter will be gone for 3 years, so is wanting to spend as much time with her as possible. Patient notes that right now her granddaughter is helping around her house with cooking and cleaning. Reji noted that [facility] told her that they do not have a contract with [employer] for home care assistance. Reji also noted that Reji called [employer] and was having issues with placing patient Member ID and speaking with a branch service representative. Patient notes that the next time [employer] calls her that she will let them know that in her area she has not found any caregivers homecare agencies that contract with them. Patient told this Sw if she finds out anything differently she will let this SW know. [facility]07-21-2025 Miscellaneous Notes* Telephone Encounter - Luis Avina MSW - 12/10/2024 12:02 PM EDT Sw spoke with patient regarding below messages. Patient notes that right now her granddaughter is staying with her through December. Patient notes then her granddaughter will be gone for 3 years, so is wanting to spend as much time with her as possible. Patient notes that right now her granddaughter is helping around her house with cooking and cleaning. Sw [facility] not have a contract with [employer] for home care assistance. Sw also noted that Sw called [facility] and was having issues with placing patient Member ID and speaking with a branch service representative. Patient notes that the next time [employer] calls her that she will let them know that in her area she has not found any caregivers homecare agencies that contract with them. Patient told this Sw if she finds out anything differently she will let this SW know. * Telephone Encounter - Luis Avina MSW - 12/05/2024 10:07 AM EDT Sw tried call again to [facility]. System notes patient ID that SW stated was not a correct ID. [facility] system would not allow for Sw to speak with branch service representative. Sw called and left patient message to return SW call to discuss. * Telephone Encounter - Luis Avina MSW - 12/03/2024 11:34 AM EDT Sw tried to call patient [employer] plan to ask about caregivers homecare coverage. Sw was unable to connectwith a branch service representative. Sw will try call another time. * Telephone Encounter - Luis Avina MSW - 11/29/2024 11:22 AM EDT Patient spoke with Reji and noted that she is going to be getting approximately 4 hours a month lighthousekeeping and meal plan assistance. Patient notes that her insurance told her that if a social security specialist places a prior auth then advantage plan would pay for caregivers homecare. This Sw noted that she has not been able to find any caregivers homecare agencies in [place] that are innetwork with advantage plan. Sw can work on calling patient Medicare plan and see if they were actually referring to residential home healthcare and not caregivers homecare. Fabian Martínez notes that they do not work with [employer] Medicare so would not be able to do anything with billing for caregivers homecare services. documented [facility] Telephone encounter Note * Telephone Encounter - Luis Avina MSW - 12/05/2024 10:07 AM EDT Sw tried call again to [facility]. System notes patient ID that SW stated was not a correct ID. [employer] system would not allow for Sw to speak with branch service representative. Sw called and left patient message to return SW call to discuss. [facility]07-14-2025 Telephone encounter Note* Telephone Encounter - Luis Avina MSW - 12/03/2024 11:34 AM EDT Reji tried to call patient [employer] plan to ask about caregivers homecare coverage. Reji was unable to connectwith a branch service representative. Reji will try call another time. [facility]07-10-2025 Telephone encounter Note* Telephone Encounter - Luis Avina MSW - 11/29/2024 11:22 AM EDT Patient spoke with Sw and noted that she is going to be getting approximately 4 hours a month lighthousekeeping and meal plan assistance. Patient notes that her insurance told her that if a social security specialist places a prior auth then advantage plan would pay for caregivers homecare. This Sw noted that she has not been able to find any caregivers homecare agencies in [place] that are innetwork with advantage plan. Sw can work on calling patient Medicare plan and see if they were actually referring to residential home healthcare and not caregivers homecare. [facility]ian Martínez notes that they do not work with [employer] Medicare so would not be able to do anything with billing for caregivers homecare services. [facility]06-23-2025 Telephone encounter Note* Telephone Encounter - Luis Avina MSW - 11/12/2024 1:30 PM EDT Sw spoke with Mira Mcmahan and she is going to reach out to patient for caregivers homecare resources. [facility]06-23-2025 Miscellaneous Notes* Telephone Encounter - Luis Avina MSW - 11/12/2024 1:30 PM EDT Reji spoke with Mira Mcmahan and she is going to reach out to patient for caregivers homecare resources. * Telephone Encounter - Luis Avina MSW - 11/12/2024 10:02 AM EDT Patient and Sw spoke regarding light housekeeping and meal prep needs. Patient notes that she believes that her insurance would help with the cost of caregivers homecare assistance. This Sw notes that she has not had many medicare advantage plans help with cost of aides. Sw noted Chrissy, [employer] may be of assistance. Chrissy is a [place] [facility] Advisor and helps link folks with home care, assisted living, nursing home care, elder law services. Patient notes that would be helpful. Sw also notes that she can mail patient [facility] Older Adult Resource Guide and [employer] brochures. Sw will write Sw number down on guide for any further resource needs. documented in this encounter[facility] Telephone encounter Note * Telephone Encounter - Luis Avina MSW - 11/12/2024 10:02 AM EDT Patient and Sw spoke regarding light housekeeping and meal prep needs. Patient notes that she believes that her insurance would help with the cost of caregivers homecare assistance. This Sw notes that she has not had many medicare advantage plans help with cost of aides. Sw noted Robbin Lowe may be of assistance. Chrissy is a [place] [facility] Advisor and helps link folks with home care, assisted living, nursing home care, elder law services. Patient notes that would be helpful. Sw also notes that she can mail patient [facility] Older Adult Resource Guide and [employer] brochures. Sw will write Sw number down on guide for any further resource needs. [facility]06-19-2025 NoteHNO ID: [id number] Author: JESSIE HURT APRN.COMPUTER LANGUAGE CODER Service: ? Author Type: Nurse Specialist Type: Progress Notes Filed: 11/08/2024 12:31 Note Text: Subjective Patient ID: Tasha is a 89 year old female who presents for uti symptoms. HPI Tasha Sweet is an 89-year-old female with a history of recurrent UTIs, presenting for evaluation of a UTI. Recurrent UTIs: - Current episode began on Tuesday with dysuria and suprapubic pain. - Took OTC medication on Tuesday, with symptom relief on Tuesday and Tuesday. - Symptoms worsened on Tuesday, with significant burning and pain at 06:00-06:30. - Increased water intake over the past month. - No current urology follow-up. - Approximately three infections in the past six months. - History of hysterectomy in late 30s. - Bladder suspension performed approximately [address] Hays at [facility]. Macular Degeneration: - Receiving intravitreal injections. - Significant visual impairment, unable to drive or perform certain ADLs. - Requires assistance with cooking and keeping house - Daughter provides meals and assistance but has limited availability due to family obligations. ROS Eyes: (+) decreased vision Genitourinary: (+) dysuria Objective BP 155/75 Pulse 62 Resp 16 Wt 74 kg (163 lb 2.3 oz) BMI 30.83 kg/m? Physical Exam Vitals and nursing note reviewed. Constitutional: Appearance: Normal appearance. HENT: Head: Normocephalic and atraumatic. Eyes: Conjunctiva/sclera: Conjunctivae normal. Cardiovascular: Rate and Rhythm: Normal rate. Skin: General: Skin is warm and dry. Neurological: General: No focal deficit present. Mental Status: She is alert and oriented to person, place, and time. 1. Recurrent UTI (N39.0) 2. UTI symptoms (R39.9) - has experienced three UTIs in the past six months, raising concerns about potential structural issues or incomplete bladder emptying. - Initiated antibiotic therapy. - Referred to Dr. Nani Neal, urogynecologist in [place], for further evaluation and management. Alternatively, Dr. Suyapa Galan is available locally. - Discussed potential need for imaging studies such as ultrasound to assess bladder function. - has had a bladder suspension approximately [address] Hays at [facility] - Advised to continue adequate hydration. 3. Macular degeneration, unspecified laterality, unspecified type (H35.30) - Preceiving intravitreal injections; experiencing significant visual impairment. - Discussed long-term planning for visual assistance and potential need for increased support at home. 4. Self-care deficit (Z78.9) -requires assistance with daily activities such as dressing and cooking due to visual impairment. Daughter is less available due to husbands illness, other daughter due to her own illness. - Referred to Luis, social security specialist, to explore available community services and support options. - Discussed potential future needs for assisted living or increased home support. Consult SW Jessie Hurt, TIMING INSPECTOR.COMPUTER LANGUAGE CODER Medical Decision Making: Problems: Moderate: 1+ chronic illnesses with change Data: Unique test(s) ordered: 2 Risk: Moderate: Drug management Medical Decision Making Level: 4 - [facility] History of Present illness Narrative* Jessie Hurt APRN.COMPUTER LANGUAGE CODER - 11/08/2024 11:31 AM EDT Subjective Patient ID: Tasha is a 89 year old female who presents for uti symptoms. HPI Tasha Sweet is an 89-year-old female with a history of recurrent UTIs, presenting for evaluation of a UTI. Recurrent UTIs: - Current episode began on Tuesday with dysuria and suprapubic pain. - Took OTC medication on Tuesday, with symptom relief on Tuesday and Tuesday. - Symptoms worsened on Tuesday, with significant burning and pain at 06:00-06:30. - Increased water intake over the past month. - No current urology follow-up. - Approximately three infections in the past six months. - History of hysterectomy in late 30s. - Bladder suspension performed approximately [address] Hays at [facility]. Macular Degeneration: - Receiving intravitreal injections. - Significant visual impairment, unable to drive or perform certain ADLs. - Requires assistance with cooking and keeping house - Daughter provides meals and assistance but has limited availability due to family obligations. ROS Eyes: (+) decreased vision Genitourinary: (+) dysuria Objective BP 155/75 Pulse 62 Resp 16 Wt 74 kg (163 lb 2.3 oz) BMI 30.83 kg/m Physical Exam Vitals and nursing note reviewed. Constitutional: Appearance: Normal appearance. HENT: Head: Normocephalic and atraumatic. Eyes: Conjunctiva/sclera: Conjunctivae normal. Cardiovascular: Rate and Rhythm: Normal rate. Skin: General: Skin is warm and dry. Neurological: General: No focal deficit present. Mental Status: She is alert and oriented to person, place, and time. 1. Recurrent UTI (N39.0) 2. UTI symptoms (R39.9) - has experienced three UTIs in the past six months, raising concerns about potential structural issues or incomplete bladder emptying. - Initiated antibiotic therapy. - Referred to Dr. Nani Neal, urogynecologist in [place], for further evaluation and management. Alternatively, Dr. Suyapa Galan is available locally. - Discussed potential need for imaging studies such as ultrasound to assess bladder function. - has had a bladder suspension approximately [address] Hays at [facility] - Advised to continue adequate hydration. 3. Macular degeneration, unspecified laterality, unspecified type (H35.30) - Preceiving intravitreal injections; experiencing significant visual impairment. - Discussed long-term planning for visual assistance and potential need for increased support at home. 4. Self-care deficit (Z78.9) -requires assistance with daily activities such as dressing and cooking due to visual impairment. Daughter is less available due to husbands illness, other daughter due to her own illness. - Referred to Luis, social security specialist, to explore available community services and support options. - Discussed potential future needs for assisted living or increased home support. Consult REJI Hurt APRN.CNS Medical Decision Making: Problems: Moderate: 1+ chronic illnesses with change Data: Unique test(s) ordered: 2 Risk: Moderate: Drug management Medical Decision Making Level: 4 - Moderate documented in this encounterMer[facility] Progress note* Result Encounter Note - Jessie Hurt APRN.CNS - 09/14/2024 8:16 AM EDT UTI symptoms improved, urine culture showed sensitivity to her treatment. [facility]04-25-2025 Miscellaneous Notes* Result Encounter Note - Jessie Hurt APRN.CNS - 09/14/2024 8:16 AM EDT UTI symptoms improved, urine culture showed sensitivity to her treatment. documented in this encounterMer[facility]04-24-2025 NoteHNO ID: [id number] Author: JESSIE HURT APRN.CNS Service: ? Author Type: Nurse Specialist Type: Progress Notes Filed: 09/13/2024 10:11 Note Text: SUBJECTIVE Tasha Sweet is a 89 year old female who presents with 4 days of symptoms that are stable. Symptoms include: Fever (>=100.4F): Yes perceived For Chills: No Cough: Yes not productive Shortness of breath: Yes or Difficulty breathing: No Fatigue: Yes Muscle aches: No Headache: No New loss of smell or taste: No Sore throat: Yes x 1 day now resolved Nasal congestion: Yes or Rhinorrhea: Yes Nausea: No or Vomiting: No Diarrhea: No OTC meds/remedies that patient has tried: mucinex. High risk category assessment Age > 60 years old Exposures: Sick contacts? Yes Family or close contacts with confirmed/probable COVID-19 in last 14 days? No She reports that she quit smoking about 68 years ago. Her smoking use included cigarettes. She has never used smokeless tobacco. OBJECTIVE PHYSICAL EXAM: BP 121/77 Pulse 64 Temp 37.1 ?C (98.7 ?F) Resp 16 Wt 74 kg (163 lb 2.3 oz) SpO2 95% BMI 30.83 kg/m? General appearance: tired/ill appearing, alert, cooperative, pleasant, in no acute distress Head: Normocephalic Eyes: conjunctiva/corneas normal Ears: R TM - not visualized secondary to cerumen, L TM - clear with good landmarks, nl light reflex Nose: clear rhinorrhea, no sinus tenderness Oropharynx: moist without lesions, mild erythema to GPA, no exudate Neck: supple and small, benign anterior cervical nodes bilaterally Heart: regular rate and rhythm, without murmur Lungs: clear to auscultation, without rales or wheeze, good air exchange ASSESSMENT/PLAN (J32.9, J40) Sinobronchitis (primary encounter diagnosis) 1. Sinobronchitis (J32.9) - Symptoms include rhinorrhea, cough, intermittent fever, and mild dyspnea. No myalgias, cephalgia, or pharyngitis reported. - Physical examination reveals mild wheezing on auscultation. - Prescribed Albuterol inhaler to be used every 4-6 hours and at bedtime if cough is disruptive. - Prescribed cough suppressant and antihistamine for rhinorrhea. - Advised rest and increased fluid intake. - understands and agrees with the treatment plan. Declines RSV, COvid, Flu testing. Jessie Hurt, TIMING INSPECTOR.COMPUTER LANGUAGE CODER Medical Decision Making: Problems: Low: Acute, uncomplicated illness or injury Risk: Moderate: Drug management Medical Decision Making Level: 3 - LowPrem[facility]04-21-2025 Instructions* Patient Instructions* Jessie Hurt APRN.CNS - 09/10/2024 12:35 PM EDT - Begin taking the UTI medication provided to you; start the course as directed. - Drink plenty of fluids--water or a sports drink like Gatorade--to help with both the infection and maintaining balance. - Change positions slowly when standing or bending over to help prevent falls. - A urine culture has been sent; please note that these results usually take 3-5 days. - Monitor your symptoms; if you do not feel better or if your symptoms worsen, please contact the office. documented in this encounterMer[facility]04-21-2025 NoteHNO ID: [id number] Author: JESSIE HURT APRN.CNS Service: ? Author Type: Nurse Specialist Type: Progress Notes Filed: 09/10/2024 12:43 Note Text: SUBJECTIVE: RSV Vaccine(1 - 1-dose 75+ series) Never done DTaP,Tdap,Td Vaccine(2 - Td or Tdap) due on 01/11/2017 HPI Tasha Sweet is a 89 year old female. 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 Urinary Tract Infection: - Onset of symptoms began late Tuesday night. - Symptoms include dysuria, urinary frequency, lower abdominal and back pain. - Took Azo with temporary relief; symptoms returned once medication wore off. - Suspected fever on Tuesday night, but did not measure temperature. - no hematuria. - Asks if UTI could be causing balance issues. Hypertension: - Recent cardiology visit noted elevated blood pressure at 191/91 mmHg. - Monitoring diet closely to manage blood pressure. - No new antihypertensive medications prescribed recently. Positional lightheadedness with bending over and arising qickly - Asks if UTI could be causing balance issues. ROS Constitutional: (+) fever (self-reported), (-) weakness Ears/Nose/Mouth/Throat: (+) hearing changes Genitourinary: (+) dysuria, (+) urinary frequency Musculoskeletal: (+) back pain Neurological: (+) loss of balance (near falls) Psychiatric: (+) fear of falling Objective BP 145/80 Pulse 80 Resp 16 Wt 75 kg (165 lb 5.5 oz) BMI 31.24 kg/m? Physical Exam Vitals and nursing note reviewed. Constitutional: Appearance: Normal appearance. HENT: Head: Normocephalic and atraumatic. Eyes: Conjunctiva/sclera: Conjunctivae normal. Neck: Thyroid: No thyromegaly. Vascular: Normal carotid pulses. No JVD. Cardiovascular: Rate and Rhythm: Normal rate. Pulses: Carotid pulses are 2+ on the right side and 2+ on the left side. Radial pulses are 2+ on the right side and 2+ on the left side. Pulmonary: Effort: Pulmonary effort is normal. Musculoskeletal: Right lower leg: No edema. Left lower leg: No edema. Skin: General: Skin is warm and dry. Neurological: General: No focal deficit present. Mental Status: She is alert and oriented to person, place, and time. ALLERGIES Allergen Reactions Codeine Vomiting Lisinopril Cough MEDICATIONS atorvastatin (LIPITOR) 40 mg tablet Take 40 mg by mouth once daily. furosemide (LASIX) 40 mg tablet Take 1 tablet by mouth once daily. losartan (COZAAR) 100 mg tablet Take 100 mg by mouth every morning. mometasone (ELOCON) 0.1 % cream Apply to affected area once daily. Apply to active or flaring lichen planus area daily until clear . AVOID eyes and eyelids. May us up to 14 days per rash flare up amLODIPine (NORVASC) 5 mg tablet Take 1 tablet by mouth once daily. (Dr. Hernández) apixaban (ELIQUIS) 5 mg tab(s) Take 1 tablet by mouth two times a day. ([facility]) metoprolol tartrate, short acting, (LOPRESSOR) 100 mg tablet Take 1 tablet by mouth two times a day. ([place] [facility]) potassium chloride SR (MICRO-K) 8 mEq cpER Take 2 capsules by mouth once daily. sulfaSALAzine (AZULFIDINE) 500 mg tablet TAKE ONE TABLET BY MOUTH 3 TO 4 TIMES DAILY FOR LICHEN PLANUS, THEN TAPER BACK ON DOSE ABLE WHEN CONTROLLED DIRECTED VIT C/E/ZN/COPPR/LUTEIN/ZEAXAN (PRESERVISION AREDS 2 ORAL) Take by mouth twice daily. sulfamethoxazole-trimethoprim (BACTRIM DS) 800-160 mg per tablet Take 1 tablet by mouth two times a day for 3 days. Take with food losartan (COZAAR) 25 mg tablet Take 1 tablet by mouth once daily. ([facility]) (Patient not taking: Reported on 09/10/2024) traZODone (DESYREL) 50 mg tablet Take 1 tablet by mouth at bedtime as needed (insomnia). (Patient not taking: Reported on 06/04/2024) atorvastatin (LIPITOR) 80 mg tablet Take 1 tablet by mouth once daily. (Patient not taking: Reported on 09/10/2024) Lactobacillus acidophilus (PROBIOTIC) 10 billion cell cap Take by mouth. (Patient not taking: Reported on 06/04/2024) furosemide (LASIX) 20 mg tablet Take 1 tablet by mouth once daily. (Patient not taking: Reported on 09/10/2024) Compression Knee Highs KNEE HIGH COMPRESSION STOCKINGS 30-40 MM. DX: EDEMA (Patient not taking: Reported on 12/14/2023) PAST MEDICAL HISTORY Diagnosis Date Corneal abrasion 08/13/2016 Os Diverticulosis of colon (without mention of hemorrhage) Essential hypertension, benig (more content not included)...[facility]04-21-[facility] History of Present illness Narrative* Jessie Hurt APRN.COMPUTER LANGUAGE CODER - 09/10/2024 11:40 AM EDT SUBJECTIVE: RSV Vaccine(1 - 1-dose 75+ series) Never done DTaP,Tdap,Td Vaccine(2 - Td or Tdap) due on 01/11/2017 HPI Tasha Sweet is a 89 year old female. PMH significant for ACTIVE PROBLEM LIST BENIGN HYPERTENSION Restless Legs Syndrome (Rls) Cystocele, Midline Mixed Hyperlipidemia Lichen Planus Rash and Other Nonspecific Skin Eruption Pruritus Proteinuria Postinflammatory Hyperpigmentation Thoracic Or Lumbosacral Neuritis Or Radiculitis, Unspecified Postinflammatory Skin Changes Lichenoid Dermatitis Lichenoid Keratosis S/P Coronary Artery Stent Placement Paf (Paroxysmal Atrial Fibrillation) ([facility]) Clostridium Difficile Colitis Controlled Type 2 Diabetes Mellitus Without Complication, Without Long-Term Current Use of Insulin ([facility]) Today reports UTI symptoms. Urinary Tract Infection: - Onset of symptoms began late Tuesday night. - Symptoms include dysuria, urinary frequency, lower abdominal and back pain. - Took Azo with temporary relief; symptoms returned once medication wore off. - Suspected fever on Tuesday night, but did not measure temperature. - no hematuria. - Asks if UTI could be causing balance issues. Hypertension: - Recent cardiology visit noted elevated blood pressure at 191/91 mmHg. - Monitoring diet closely to manage blood pressure. - No new antihypertensive medications prescribed recently. Positional lightheadedness with bending over and arising qickly - Asks if UTI could be causing balance issues. ROS Constitutional: (+) fever (self-reported), (-) weakness Ears/Nose/Mouth/Throat: (+) hearing changes Genitourinary: (+) dysuria, (+) urinary frequency Musculoskeletal: (+) back pain Neurological: (+) loss of balance (near falls) Psychiatric: (+) fear of falling Objective BP 145/80 Pulse 80 Resp 16 Wt 75 kg (165 lb 5.5 oz) BMI 31.24 kg/m Physical Exam Vitals and nursing note reviewed. Constitutional: Appearance: Normal appearance. HENT: Head: Normocephalic and atraumatic. Eyes: Conjunctiva/sclera: Conjunctivae normal. Neck: Thyroid: No thyromegaly. Vascular: Normal carotid pulses. No JVD. Cardiovascular: Rate and Rhythm: Normal rate. Pulses: Carotid pulses are 2+ on the right side and 2+ on the left side. Radial pulses are 2+ on the right side and 2+ on the left side. Pulmonary: Effort: Pulmonary effort is normal. Musculoskeletal: Right lower leg: No edema. Left lower leg: No edema. Skin: General: Skin is warm and dry. Neurological: General: No focal deficit present. Mental Status: She is alert and oriented to person, place, and time. ALLERGIES Allergen Reactions Codeine Vomiting Lisinopril Cough MEDICATIONS atorvastatin (LIPITOR) 40 mg tablet Take 40 mg by mouth once daily. furosemide (LASIX) 40 mg tablet Take 1 tablet by mouth once daily. losartan (COZAAR) 100 mg tablet Take 100 mg by mouth every morning. mometasone (ELOCON) 0.1 % cream Apply to affected area once daily. Apply to active or flaring lichen planus area daily until clear . AVOID eyes and eyelids. May us up to 14 days per rash flare up amLODIPine (NORVASC) 5 mg tablet Take 1 tablet by mouth once daily. (Dr. Hernández) apixaban (ELIQUIS) 5 mg tab(s) Take 1 tablet by mouth two times a day. ([facility]) metoprolol tartrate, short acting, (LOPRESSOR) 100 mg tablet Take 1 tablet by mouth two times a day. ([facility]) potassium chloride SR (MICRO-K) 8 mEq cpER Take 2 capsules by mouth once daily. sulfaSALAzine (AZULFIDINE) 500 mg tablet TAKE ONE TABLET BY MOUTH 3 TO 4 TIMES DAILY FOR LICHEN PLANUS, THEN TAPER BACK ON DOSE ABLE WHEN CONTROLLED DIRECTED VIT C/E/ZN/COPPR/LUTEIN/ZEAXAN (PRESERVISION AREDS 2 ORAL) Take by mouth twice daily. sulfamethoxazole-trimethoprim (BACTRIM DS) 800-160 mg per tablet Take 1 tablet by mouth two times aday for 3 days. Take with food losartan (COZAAR) 25 mg tablet Take 1 tablet by mouth once daily. ([facility]) (Patient not taking: Reported on 09/10/2024) traZODone (DESYREL) 50 mg tablet Take 1 tablet by mouth at bedtime as needed (insomnia). (Patient not taking: Reported on 06/04/2024) atorvastatin (LIPITOR) 80 mg tablet Take 1 tablet by mouth once daily. (Patient not taking: Reported on 09/10/2024) Lactobacillus acidophilus (PROBIOTIC) 10 billion cell cap Take by mouth. (Patient not taking: Reported on 06/04/2024) furosemide (LASIX) 20 mg tablet Take 1 tablet by mouth once daily. (Patient not taking: Reported on09/10/2024) Compression Knee Highs KNEE HIGH COMPRESSION STOCKINGS 30-40 MM. DX: EDEMA (Patient not taking: Reported on 12/14/2023) PAST MEDICAL HISTORY Diagnosis Date Corneal abrasion 08/13/2016 Os Diverticulosis of colon (without mention of hemorrhage) Essential hypertension, benign History of basal cell carcinoma 06/2016 left nasal sidewall Macular degeneration 2014 Personal history of colonic polyps Pure hypercholesterolemia Type II or unspecified type diabetes mellitus without mention of complication, not stated as uncontrolled Social History Tobacco Use Smoking status: Former Current packs/day: 0.00 Types: Cigarettes Quit date: 05/23/1956 Years since quittin.3 Smokeless tobacco: Never Substance Use Topics Alcohol use: No Drug use: No Component Latest Ref Rng & Units 06/07/2022 06/18/2023 WBC 3.70 - 11.00 k/uL 15.26 (H) 7.87 RBC 3.90 - 5.20 m/uL 4.37 4.29 Hemoglobin 11.5 - 15.5 g/dL 13.3 13.2 Hematocrit 36.0 - 46.0 % 41.8 41.7 MCV 80.0 - 100.0 fL 95.7 97.2 MCH 26.0 - 34.0 pg 30.4 30.8 MCHC 30.5 - 36.0 g/dL 31.8 31.7 RDW-CV 11.5 - 15.0 % 13.4 13.6 Platelet Count 150 - 400 k/uL 331 204 MPV 9.0 - 12.7 fL 11.0 11.4 Neut% % 61.2 Abs Neut (ANC) 1.45 - 7.50 k/uL 9.35 (H) Lymph% % 27.8 Abs Lymph 1.00 - 4.00 k/uL 4.24 (H) [place]% % 8.5 Abs [place] <0.87 k/uL 1.30 (H) Eosin% % 0.3 Abs Eosin <0.46 k/uL 0.04 Baso% % 0.5 Abs Baso <0.11 k/uL 0.07 Immature Gran % % 1.7 IMMATURE GRANS (ABS) <0.10 k/uL 0.26 (H) NRBC /100 WBC 0.0 Absolute nRBC <0.01 k/uL <0.01 <0.01 DTYPE Auto Protein, Total 6.3 - 8.0 g/dL 7.6 6.6 Albumin 3.9 - 4.9 g/dL 4.0 4.0 Calcium 8.5 - 10.2 mg/dL 10.0 9.5 Bilirubin, Total 0.2 - 1.3 mg/dL 0.4 0.7 Alkaline Phosphatase 34 - 123 U/L 104 98 AST 13 - 35 U/L 30 17 ALT 7 - 38 U/L 51 (H) 14 Glucose 74 - 99 mg/dL 227 (H) 149 (H) BUN 7 - 21 mg/dL 29 (H) 23 (H) Creatinine 0.58 - 0.96 mg/dL 1.03 (H) 1.10 (H) Sodium 136 - 144 mmol/L 134 (L) 142 Potassium 3.7 - 5.1 mmol/L 4.5 4.1 Chloride 97 - 105 mmol/L 97 105 CO2 22 - 30 mmol/L 23 25 Anion Gap 9 - 18 mmol/L 14 12 eGFR >=60 mL/min/1.73m 53 (L) 49 (L) Cholesterol, Total <200 mg/dL 140 134 Triglyceride <150 mg/dL 122 81 HDL Cholesterol >39 mg/dL 32 (L) 47 Non HDL Cholesterol <130 mg/dL 108 87 Fasting Time hrs 11 14 VLDL Cholesterol <30 mg/dL 24 16 TC:HDL Ratio <5.10 4.38 2.85 LDL Cholesterol <100 mg/dL 84 71 LDL:HDL Ratio <2.54 2.63 (H) 1.51 Creatinine, Ur Random (UCRR) 20.0 - 300.0 mg/dL 41.4 Albumin, Urine Random mg/L 19.3 Albumin/Creat Ratio <30 mg/g 47 (H) Hemoglobin A1C 4.3 - 5.6 % 7.0 (H) 6.8 (H) Estimated Average Glucose mg/dL 154 148 1. UTI symptoms (R39.9) - Symptoms include dysuria, urinary frequency, and mild back pain; onset began late Tuesday. - Urinalysis performed in office, indicating infection; urine culture sent for confirmation, results pending 3-5 days. - Prescribed antibiotic treatment; patient instructed to initiate medication immediately. - Advised to maintain adequate hydration. - to monitor symptoms and report if no improvement. 2. Positional lightheadedness (R42) - Experiencing episodes of lightheadedness when bending over; no falls reported. - Advised to change positions slowly and ensure adequate hydration. - Recommended consumption of electrolyte-rich fluids such as Gatorade. - Discussed potential link between UTI and balance issues. Medical Decision Making: Problems: Low: Acute, uncomplicated illness or injury Risk: Moderate: Drug management Medical Decision Making Level: 3 - Low documented in [facility] Telephone encounter Note * Telephone Encounter - Digna Ridley RN - 09/10/2024 9:31 AM EDT Pt calling in with symptoms of a UTI. Pt concerned because she states this is at least her third UTI since the beginning of the year. Pt states she is having burning and frequency with urination as well as throbbing in her lower abdomen. Pt states symptoms started on Tuesday and then subsided until Tuesday evening. Pt was unaware that our [facility] is open on the weekends. Pt states she has been using OTC AZO which has been helping with her symptoms. Pt booked for an appt Vickie Hurt at noon today. [facility]04-21-2025 Miscellaneous Notes* Telephone Encounter - Digna Ridley RN - 09/10/2024 9:31 AM EDT Pt calling in with symptoms of a UTI. Pt concerned because she states this is at least her third UTI since the beginning of the year. Pt states she is having burning and frequency with urination as well as throbbing in her lower abdomen. Pt states symptoms started on Tuesday and then subsided until Tuesday evening. Pt was unaware that our [facility] is open on the weekends. Pt states she has been using OTC AZO which has been helping with her symptoms. Pt booked for an appt Vickie Hurt at noon today. documented in this encounter[facility] Evaluation note* Diagnosis Onset Date Resolution Status Admit Date Aortic valve stenosis chronic Mar ch 2024 1:20pm Coronary artery disease chronic M arch 2024 1:20pm Essential hypertension chronic [facility] 2024 1:20pm PAF (paroxysmal atrial fibrillation) chronic August 06, 2024 1:20pm Presence of stent in coronar y artery May, chronic August 06, 2024 1:20pm Pulmonary hypertension chronic [facility] 2024 1:20pm Pure hypercholesterolemia chronic August 06, 2024 1:20pm [facility] Work Phone: [phone]) 461-577403-13-2025 Telephone encounter Note* Telephone Encounter - Yumiko Aleman LPN - 08/02/2024 8:50 AM EDT Spoke with patient and she states she if feeling great. No UTI symptoms, states last prescription really worked. [facility]03-13-2025 Miscellaneous Notes* Telephone Encounter - Yumiko Aleman LPN - 08/02/2024 8:50 AM EDT Spoke with patient and she states she if feeling great. No UTI symptoms, states last prescription really worked. * Telephone Encounter - Jessie Hurt APRN.CNS - 08/02/2024 8:21 AM EDT Check to see if having UTI symptoms, can send in a script for treatment if still with symptoms. documented in this encounter[facility]25 Telephone encounter Note * Telephone Encounter - Jessie Hurt APRN.CNS - 08/02/2024 8:21 AM EDT Check to see if having UTI symptoms, can send in a script for treatment if still with symptoms. [facility]02-07-2025 Telephone encounter Note* Telephone Encounter - Ángela Santillan RN - 06/29/2024 3:42 PM EST Pt called and is notified of providers results and instructions. Pt voices understanding. Pt statesarsenio has pain at the bottom of her pelvis, pressure, burning, and urinary frequency. Pt is going to see if she can get a ride in to to UA and culture tonight. Ángela Santillan RN [facility]02-07-2025 Miscellaneous Notes* Telephone Encounter - Ángela Santillan RN - 06/29/2024 3:42 PM EST Pt called and is notified of providers results and instructions. Pt voices understanding. Pt statesarsenio has pain at the bottom of her pelvis, pressure, burning, and urinary frequency. Pt is going to see if she can get a ride in to to UA and culture tonight. Ángela Santillan RN * Telephone Encounter - Jadyn Bowden MD - 06/29/2024 1:52 PM EST 06/19 urine was clear and neg for nitrites, with 1+ leuk esterase that went along with WBC 6-10/HPF (mild elevation). No protein increase, no bacteria, and no squamous epithelial cells (no sign of contamination). Noted a few hyaline casts--non-specific finding. What symptoms of UTI now? May get urine studies first to determine if has UTI (could take 3 days for urine culture results tocome back). If not able to come in but symptoms are consistent with UTI. can treat empirically thencheck post med UA C&S if symptoms not resolving. Orders placed so can do urine tests either way. I sent a RX for dose given for complicated UTI--if having fever or flank pain. If just has simple cystitis symptoms (bladder and burning with urination), can take 1 pill twice daily for 5 days. The following approved medication requests have been transmitted electronically. Requested Prescriptions Signed Prescriptions Disp Refills cephALEXin (KEFLEX) 500 mg capsule 40 capsule 0 Sig: Take 1 capsule by mouth four times daily for 10 days. Authorizing Provider: JADYN BOWDEN MD * Telephone Encounter - Rocio Dejesus RN - 06/29/2024 1:40 PM EST Patient calling on her lab and urine test results, that were completed on , ordered by Jessie. Pt states she started to have urinary sx's today and was curious if her urine test showed any abnormal results. Rocio Dejesus RN documented in this encounterMer[facility]02-[facility]-2025 Telephone encounter Note * Telephone Encounter - Jadyn Bowden MD - 06/29/2024 1:52 PM EST 06/19 urine was clear and neg for nitrites, with 1+ leuk esterase that went along with WBC 6-10/HPF (mild elevation). No protein increase, no bacteria, and no squamous epithelial cells (no sign of contamination). Noted a few hyaline casts--non-specific finding. What symptoms of UTI now? May get urine studies first to determine if has UTI (could take 3 days for urine culture results tocome back). If not able to come in but symptoms are consistent with UTI. can treat empirically thencheck post med UA C&S if symptoms not resolving. Orders placed so can do urine tests either way. I sent a RX for dose given for complicated UTI--if having fever or flank pain. If just has simple cystitis symptoms (bladder and burning with urination), can take 1 pill twice daily for 5 days. The following approved medication requests have been transmitted electronically. Requested Prescriptions Signed Prescriptions Disp Refills cephALEXin (KEFLEX) 500 mg capsule 40 capsule 0 Sig: Take 1 capsule by mouth four times daily for 10 days. Authorizing Provider: JADYN BOWDEN MD [facility]02-07-2025 Telephone encounter Note* Telephone Encounter - Rocio Dejesus RN - 06/29/2024 1:40 PM EST Patient calling on her lab and urine test results, that were completed on , ordered by Jessie. Pt states she started to have urinary sx's today and was curious if her urine test showed any abnormal results. Rocio Dejesus RN [facility]01-28-2025 NoteHNO ID: [id number] Author: JESSIE HURT APRN.COMPUTER LANGUAGE CODER Service: ? Author Type: Nurse Specialist Type: Progress Notes Filed: 06/19/2024 13:37 Note Text: SUBJECTIVE: RSV Vaccine(1 - 1-dose 75+ series) Never done DTaP,Tdap,Td Vaccine(2 - Td or Tdap) due on 01/11/2017 HbA1C due on 06/15/2024 LDL Cholesterol due on 06/18/2024 HPI Tasha Sweet is a 88 year old female. PMH significant for ACTIVE PROBLEM LIST BENIGN HYPERTENSION Restless Legs Syndrome (Rls) Cystocele, Midline Mixed Hyperlipidemia Lichen Planus Rash and Other Nonspecific Skin Eruption Pruritus Proteinuria Postinflammatory Hyperpigmentation Thoracic Or Lumbosacral Neuritis Or Radiculitis, Unspecified Postinflammatory Skin Changes Lichenoid Dermatitis Lichenoid Keratosis S/P Coronary Artery Stent Placement Paf (Paroxysmal Atrial Fibrillation) ([facility]) Clostridium Difficile Colitis Controlled Type 2 Diabetes Mellitus Without Complication, Without Long-Term Current Use of Insulin ([facility]) Today reports she is feeling very well overall. 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 She is active. Weight is stable. She is not short of breath currently. Just had eye injections both eyes for macular degeneration, seems to be helping. Followed by [facility]. Taking OAC for PAF. No bleeding difficulties noted. Without report of chest pain shortness of breath dizziness lightheadedness palpitations edema. HTN: Without report of headache, chest pain, palpitations, dyspnea, peripheral edema, orthopnea, fatigue, and PND.Last 14 Encounter BP Readings: Date: BP: 06/19/2024 121/77 06/04/2024 134/72 12/14/2023 128/80 09/23/2023 136/74 06/20/2023 143/76 12/17/2022 126/72 06/07/2022 136/82 06/03/2022 128/78 05/26/2022 122/78 10/13/2021 160/88 05/26/2021 122/78 03/21/2021 120/64 03/02/2021 136/70 10/30/2020 132/62 12/14/2023 128/80 DIABETES MELLITUS: Without report of excessive thirst or increased frequency of urination, chest pain or dyspnea , numbness, tingling or pain in extremities, new or unusual visual symptoms, low sugar/hypoglycemic reactions, weight loss/gain, lightheadedness/dizziness, and bowel changes/loose stools. Patient's last HgA1C was Hemoglobin A1C (%) Date Value 06/18/2023 6.8 06/07/2022 7.0 10/30/2020 6.6 03/26/2019 5.6 Hemoglobin A1C (POCT) (%) Date Value 12/14/2023 6.8 ) Review of Systems Constitutional: Negative. Respiratory: Negative. Cardiovascular: Negative. Endocrine: Negative. Objective BP 121/77 Pulse 76 Resp 16 Wt 76 kg (167 lb 8.8 oz) BMI 31.66 kg/m? Physical Exam Vitals and nursing note reviewed. Constitutional: Appearance: Normal appearance. HENT: Head: Normocephalic and atraumatic. Eyes: Conjunctiva/sclera: Conjunctivae normal. Neck: Thyroid: No thyromegaly. Vascular: Normal carotid pulses. No JVD. Cardiovascular: Rate and Rhythm: Normal rate and regular rhythm. Pulses: Carotid pulses are 2+ on the right side and 2+ on the left side. Radial pulses are 2+ on the right side and 2+ on the left side. Pulmonary: Effort: Pulmonary effort is normal. Breath sounds: Normal breath sounds. Abdominal: General: Bowel sounds are normal. Palpations: Abdomen is soft. Musculoskeletal: Right lower leg: No edema. Left lower leg: No edema. Skin: General: Skin is warm and dry. Neurological: General: No focal deficit present. Mental Status: She is alert and oriented to person, place, and time. ALLERGIES Allergen Reactions Codeine Vomiting Lisinopril Cough MEDICATIONS amLODIPine (NORVASC) 5 mg tablet Take 1 tablet by mouth once daily. (Dr. Hernández) apixaban (ELIQUIS) 5 mg tab(s) Take 1 tablet by mouth two times a day. ([facility]) losartan (COZAAR) 25 mg tablet Take 1 tablet by mouth once daily. ([facility]) metoprolol tartrate, short acting, (LOPRESSOR) 100 mg tablet Take 1 tablet by mouth two times a day. ([facility]) potassium chloride SR (MICRO-K) 8 mEq cpER Take 2 capsules by mouth once daily. atorvastatin (LIPITOR) 80 mg tablet Take 1 tablet by mouth once daily. furosemide (LASIX) 20 mg tablet Take 1 tablet by mouth once daily. sulfaSALAzine (AZULFIDINE) 500 mg tablet TAKE ONE TABLET BY MOUTH 3 TO 4 TIMES DAILY FOR LICHEN PLANUS, THEN TAPER BACK ON DOSE ABLE WHEN CONTROLLED DIRECTED VIT C/E/ZN/COPPR/LUTEIN/ZEAXAN (PRESERVISION AREDS 2 ORAL) Take by mouth twice daily. mometasone (ELOCON) 0.1 % cream Apply to affected area once daily. Apply to active or flaring lichen planus area daily until clear . AVOID eyes and eyelids. May us up to 14 days per rash flare up traZODone (DESYREL) 50 mg tablet Take 1 tablet by mouth at bedtime as needed (insomnia). (Patient not taking: Reported on 06/04/2024) Lactobacillus acidophilus (PROBIOTIC) 10 billion cell cap Take by mouth. (Patient not taking: Reported on (more content not included)...[facility]01-28-2025 History of Present illness Narrative* Jessie Hurt APRN.COMPUTER LANGUAGE CODER - 06/19/2024 12:37 PM EST SUBJECTIVE: RSV Vaccine(1 - 1-dose 75+ series) Never done DTaP,Tdap,Td Vaccine(2 - Td or Tdap) due on 01/11/2017 HbA1C due on 06/15/2024 LDL Cholesterol due on 06/18/2024 HPI Tasha Sweet is a 88 year old female. PMH significant for ACTIVE PROBLEM LIST BENIGN HYPERTENSION Restless Legs Syndrome (Rls) Cystocele, Midline Mixed Hyperlipidemia Lichen Planus Rash and Other Nonspecific Skin Eruption Pruritus Proteinuria Postinflammatory Hyperpigmentation Thoracic Or Lumbosacral Neuritis Or Radiculitis, Unspecified Postinflammatory Skin Changes Lichenoid Dermatitis Lichenoid Keratosis S/P Coronary Artery Stent Placement Paf (Paroxysmal Atrial Fibrillation) ([facility]) Clostridium Difficile Colitis Controlled Type 2 Diabetes Mellitus Without Complication, Without Long-Term Current Use of Insulin ([facility]) Today reports she is feeling very well overall. She reports facial skin cancers removed in April by [facility] Mohs surgery, healing well. She is active. Weight is stable. She is not short of breath currently. Just had eye injections both eyes for macular degeneration, seems to be helping. Followed by [facility]. Taking OAC for PAF. No bleeding difficulties noted. Without report of chest pain shortness of breath dizziness lightheadedness palpitations edema. HTN: Without report of headache, chest pain, palpitations, dyspnea, peripheral edema, orthopnea, fatigue, and PND.Last 14 Encounter BP Readings: Date: BP: 06/19/2024 121/77 06/04/2024 134/72 12/14/2023 128/80 09/23/2023 136/74 06/20/2023 143/76 12/17/2022 126/72 06/07/2022 136/82 06/03/2022 128/78 05/26/2022 122/78 10/13/2021 160/88 05/26/2021 122/78 03/21/2021 120/64 03/02/2021 136/70 10/30/2020 132/62 12/14/2023 128/80 DIABETES MELLITUS: Without report of excessive thirst or increased frequency of urination, chest pain or dyspnea , numbness, tingling or pain in extremities, new or unusual visual symptoms, low sugar/hypoglycemic reactions, weight loss/gain, lightheadedness/dizziness, and bowel changes/loose stools. Patient's last HgA1C was Hemoglobin A1C (%) Date Value 06/18/2023 6.8 06/07/2022 7.0 10/30/2020 6.6 03/26/2019 5.6 Hemoglobin A1C (POCT) (%) Date Value 12/14/2023 6.8 ) Review of Systems Constitutional: Negative. Respiratory: Negative. Cardiovascular: Negative. Endocrine: Negative. Objective BP 121/77 Pulse 76 Resp 16 Wt 76 kg (167 lb 8.8 oz) BMI 31.66 kg/m Physical Exam Vitals and nursing note reviewed. Constitutional: Appearance: Normal appearance. HENT: Head: Normocephalic and atraumatic. Eyes: Conjunctiva/sclera: Conjunctivae normal. Neck: Thyroid: No thyromegaly. Vascular: Normal carotid pulses. No JVD. Cardiovascular: Rate and Rhythm: Normal rate and regular rhythm. Pulses: Carotid pulses are 2+ on the right side and 2+ on the left side. Radial pulses are 2+ on the right side and 2+ on the left side. Pulmonary: Effort: Pulmonary effort is normal. Breath sounds: Normal breath sounds. Abdominal: General: Bowel sounds are normal. Palpations: Abdomen is soft. Musculoskeletal: Right lower leg: No edema. Left lower leg: No edema. Skin: General: Skin is warm and dry. Neurological: General: No focal deficit present. Mental Status: She is alert and oriented to person, place, and time. ALLERGIES Allergen Reactions Codeine Vomiting Lisinopril Cough MEDICATIONS amLODIPine (NORVASC) 5 mg tablet Take 1 tablet by mouth once daily. (Dr. Hernández) apixaban (ELIQUIS) 5 mg tab(s) Take 1 tablet by mouth two times a day. ([facility]) losartan (COZAAR) 25 mg tablet Take 1 tablet by mouth once daily. ([facility]) metoprolol tartrate, short acting, (LOPRESSOR) 100 mg tablet Take 1 tablet by mouth two times a day. ([facility]) potassium chloride SR (MICRO-K) 8 mEq cpER Take 2 capsules by mouth once daily. atorvastatin (LIPITOR) 80 mg tablet Take 1 tablet by mouth once daily. furosemide (LASIX) 20 mg tablet Take 1 tablet by mouth once daily. sulfaSALAzine (AZULFIDINE) 500 mg tablet TAKE ONE TABLET BY MOUTH 3 TO 4 TIMES DAILY FOR LICHEN PLANUS, THEN TAPER BACK ON DOSE ABLE WHEN CONTROLLED DIRECTED VIT C/E/ZN/COPPR/LUTEIN/ZEAXAN (PRESERVISION AREDS 2 ORAL) Take by mouth twice daily. mometasone (ELOCON) 0.1 % cream Apply to affected area once daily. Apply to active or flaring lichen planus area daily until clear . AVOID eyes and eyelids. May us up to 14 days per rash flare up traZODone (DESYREL) 50 mg tablet Take 1 tablet by mouth at bedtime as needed (insomnia). (Patient not taking: Reported on 06/04/2024) Lactobacillus acidophilus (PROBIOTIC) 10 billion cell cap Take by mouth. (Patient not taking: Reported on 06/04/2024) Compression Knee Highs KNEE HIGH COMPRESSION STOCKINGS 30-40 MM. DX: EDEMA (Patient not taking: Reported on 12/14/2023) PAST MEDICAL HISTORY Diagnosis Date Corneal abrasion 08/13/2016 Os Diverticulosis of colon (without mention of hemorrhage) Essential hypertension, benign History of basal cell carcinoma 06/2016 left nasal sidewall Macular degeneration 2014 Personal history of colonic polyps Pure hypercholesterolemia Type II or unspecified type diabetes mellitus without mention of complication, not stated as uncontrolled Social History Tobacco Use Smoking status: Former Current packs/day: 0.00 Types: Cigarettes Quit date: 05/23/1956 Years since quittin.1 Smokeless tobacco: Never Substance Use Topics Alcohol use: No Drug use: No Component Latest Ref Rng & Units 06/07/2022 06/18/2023 WBC 3.70 - 11.00 k/uL 15.26 (H) 7.87 RBC 3.90 - 5.20 m/uL 4.37 4.29 Hemoglobin 11.5 - 15.5 g/dL 13.3 13.2 Hematocrit 36.0 - 46.0 % 41.8 41.7 MCV 80.0 - 100.0 fL 95.7 97.2 MCH 26.0 - 34.0 pg 30.4 30.8 MCHC 30.5 - 36.0 g/dL 31.8 31.7 RDW-CV 11.5 - 15.0 % 13.4 13.6 Platelet Count 150 - 400 k/uL 331 204 MPV 9.0 - 12.7 fL 11.0 11.4 Neut% % 61.2 Abs Neut (ANC) 1.45 - 7.50 k/uL 9.35 (H) Lymph% % 27.8 Abs Lymph 1.00 - 4.00 k/uL 4.24 (H) [place]% % 8.5 Abs [place] <0.87 k/uL 1.30 (H) Eosin% % 0.3 Abs Eosin <0.46 k/uL 0.04 Baso% % 0.5 Abs Baso <0.11 k/uL 0.07 Immature Gran % % 1.7 IMMATURE GRANS (ABS) <0.10 k/uL 0.26 (H) NRBC /100 WBC 0.0 Absolute nRBC <0.01 k/uL <0.01 <0.01 DTYPE Auto Protein, Total 6.3 - 8.0 g/dL 7.6 6.6 Albumin 3.9 - 4.9 g/dL 4.0 4.0 Calcium 8.5 - 10.2 mg/dL 10.0 9.5 Bilirubin, Total 0.2 - 1.3 mg/dL 0.4 0.7 Alkaline Phosphatase 34 - 123 U/L 104 98 AST 13 - 35 U/L 30 17 ALT 7 - 38 U/L 51 (H) 14 Glucose 74 - 99 mg/dL 227 (H) 149 (H) BUN 7 - 21 mg/dL 29 (H) 23 (H) Creatinine 0.58 - 0.96 mg/dL 1.03 (H) 1.10 (H) Sodium 136 - 144 mmol/L 134 (L) 142 Potassium 3.7 - 5.1 mmol/L 4.5 4.1 Chloride 97 - 105 mmol/L 97 105 CO2 22 - 30 mmol/L 23 25 Anion Gap 9 - 18 mmol/L 14 12 eGFR >=60 mL/min/1.73m 53 (L) 49 (L) Cholesterol, Total <200 mg/dL 140 134 Triglyceride <150 mg/dL 122 81 HDL Cholesterol >39 mg/dL 32 (L) 47 Non HDL Cholesterol <130 mg/dL 108 87 Fasting Time hrs 11 14 VLDL Cholesterol <30 mg/dL 24 16 TC:HDL Ratio <5.10 4.38 2.85 LDL Cholesterol <100 mg/dL 84 71 LDL:HDL Ratio <2.54 2.63 (H) 1.51 Creatinine, Ur Random (UCRR) 20.0 - 300.0 mg/dL 41.4 Albumin, Urine Random mg/L 19.3 Albumin/Creat Ratio <30 mg/g 47 (H) Hemoglobin A1C 4.3 - 5.6 % 7.0 (H) 6.8 (H) Estimated Average Glucose mg/dL 154 148 ASSESSMENT/PLAN: 1. Controlled type 2 diabetes mellitus without complication, without long-term current use of insulin (HCC) - ICD9: 250.00, ICD10: E11.9 (primary diagnosis) - Controlled Stable, currently controlled, continue to monitor. Continue current treatment unchanged - HEMOGLOBIN A1C - COMPREHENSIVE METABOLIC PANEL - COMPLETE BLOOD COUNT AND DIFFERENTIAL - ALBUMIN/CREATININE RATIO, URINE - LIPID PANEL BASIC - HEMOGLOBIN A1C - URINALYSIS, WITH MICROSCOPIC - LIPID PANEL, NONFASTING 2. Microalbuminuria - ICD9: 791.0, ICD10: R80.9 recheck today 3. Mixed hyperlipidemia - ICD9: 272.2, ICD10: E78.2 controlled Recommend a plant based diet such as Mediterranean diet with plenty of vegetables, fruits,whole grains, fish, chicken, turkey or plant there was protein in routine exercise such as walking Continue current treatment unchanged for now - COMPREHENSIVE METABOLIC PANEL - LIPID PANEL BASIC - LIPID PANEL, NONFASTING 4. S/P coronary artery stent placement - ICD9: V45.82, ICD10: Z95.5 Followed by cardiology, no chest pain or shortness of breath currently - HEMOGLOBIN A1C - COMPREHENSIVE METABOLIC PANEL - COMPLETE BLOOD COUNT AND DIFFERENTIAL - ALBUMIN/CREATININE RATIO, URINE - LIPID PANEL BASIC - HEMOGLOBIN A1C - LIPID PANEL, NONFASTING 5. Primary hypertension - ICD9: 401.9, ICD10: I10 controlled - Continue current medications - Encouraged sodium restriction, DASH or Mediterranean diet - Recommend regular aerobic exercise 6. PAF (paroxysmal atrial fibrillation) (HCC) - ICD9: 427.31, ICD10: I48.0 On oral anticoagulation, apixaban per [facility]. 7. Vitamin D deficiency - ICD9: 268.9, ICD10: E55.9 - VITAMIN D 25 HYDROXY 8. Encounter for immunization - ICD9: V03.89, ICD10: Z23- defers at this time - TDAP PRINTED PHARMACY INSTRUCTIONS - INFLUENZA VACCINE, PRSV FREE, AGE 65+ YR, HIGH DOSE, TRIVALENT (FLUZONE HIGH-DOSE) - PFIZER-BIONTECH COVID-19 VACCINE AGE 12+ YR (COMIRNATY) - RSV PRINTED PHARMACY INSTRUCTIONS 9. Lichen planus - ICD9: 697.0, ICD10: L43.9 In need of refill of cream which works very well. No longer on formulary. Can try Elocon cream instead instead of [place]cort to see if this works as well due to decreased cost / on formulary. Her last hemoglobin A1c was well-controlled. There was protein in urine creatinine so good hydration was recommended. Continue to work on controlling blood sugar and blood pressure. Recheck labs withnext set today. No current concerns regarding shortness of breath on exertion so will hold off on referral to pulmonology. Medical Decision Making: Problems: Moderate: 2+ stable chronic illnesses Data: Unique test(s) ordered: 3+ Risk: Moderate: Drug management Medical Decision Making Level: 4 - Moderate documented in this encounterMercy Health St. [facility]25 NoteHNO ID: [id number] Author: AYANNA PATEL APRN.IOS PROGRAMMER Service: ? Author Type: Nurse Practitioner Type: Progress Notes Filed: 06/04/2024 12:18 Note Text: CC: Patient presents with: Urinary Frequency: with dysuria and pressure pain in lower pelvic area HPI Tasha Sweet is a 88 year old female who presents with complaint of possible UTI. These symptoms have been present for 4 days. Associated symptoms: burning, urgency, frequency, and pressure Denies: backpain, hematuria, fever, chills, sweats, abdominal pain, frequent or recurrent UTI's, kidney disease Treatments: increasing her fluids and uristat Review of Systems See HPI PAST MEDICAL HISTORY Diagnosis Date Corneal abrasion 08/13/2016 Os Diverticulosis of colon (without mention of hemorrhage) Essential hypertension, benign History of basal cell carcinoma 06/2016 left nasal sidewall Macular degeneration 2014 Personal history of colonic polyps Pure hypercholesterolemia Type II or unspecified type diabetes mellitus without mention of complication, not stated as uncontrolled PAST SURGICAL HISTORY Procedure Laterality Date COLONOSCOPY FLX DX W/COLLJ SPEC WHEN PFRMD 2002 Colonoscopy COLONOSCOPY FLX DX W/COLLJ SPEC WHEN PFRMD 10/28/08 PAST SURGICAL 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 (Dr. Hernández) apixaban (ELIQUIS) 5 mg tab(s) Take 1 tablet by mouth two times a day. ([facility]) losartan (COZAAR) 25 mg tablet Take 1 tablet by mouth once daily. ([facility]) metoprolol tartrate, short acting, (LOPRESSOR) 100 mg tablet Take 1 tablet by mouth two times a day. ([facility]) hydrocortisone valerate (WESTCORT) 0.2 % cream Apply to active or flaring lichen planus area daily until clear . AVOID eyes and eyelids. May us up to 14 days per rash flare up potassium chloride SR (MICRO-K) 8 mEq cpER Take 2 capsules by mouth once daily. atorvastatin (LIPITOR) 80 mg tablet Take 1 tablet by mouth once daily. furosemide (LASIX) 20 mg tablet Take 1 tablet by mouth once daily. sulfaSALAzine (AZULFIDINE) 500 mg tablet TAKE ONE TABLET BY MOUTH 3 TO 4 TIMES DAILY FOR LICHEN PLANUS, THEN TAPER BACK ON DOSE ABLE WHEN CONTROLLED DIRECTED VIT C/E/ZN/COPPR/LUTEIN/ZEAXAN (PRESERVISION AREDS 2 ORAL) Take by mouth twice daily. traZODone (DESYREL) 50 mg tablet Take 1 tablet by mouth at bedtime as needed (insomnia). (Patient not taking: Reported on 06/04/2024) Lactobacillus acidophilus (PROBIOTIC) 10 billion cell cap Take by mouth. (Patient not taking: Reported on 06/04/2024) Compression Knee Highs KNEE HIGH COMPRESSION STOCKINGS 30-40 MM. DX: EDEMA (Patient not taking: Reported on 12/14/2023) FAMILY HISTORY Problem Relation Age of Onset Diabetes Mother Heart Mother Hypertension Mother Diabetes Daughter Diabetes Daughter Diabetes Maternal Uncle Diabetes Maternal Uncle Diabetes Maternal Uncle Diabetes Maternal Uncle Macular Degen Other aunt Social History Tobacco Use Smoking status: Former Current packs/day: 0.00 Types: Cigarettes Quit date: 05/23/1956 Years since quittin.0 Smokeless tobacco: Never Substance Use Topics Alcohol use: No Drug use: No BP 134/72 Pulse 63 Temp 36.3 ?C (97.4 ?F) (Temporal) Wt 76.3 kg (168 lb 3.4 oz) SpO2 99% BMI 31.78 kg/m? Physical Exam Vitals reviewed. Constitutional: Appearance: Normal appearance. Cardiovascular: Rate and Rhythm: Normal rate. Rhythm irregular. Heart sounds: Normal heart sounds. No murmur heard. Pulmonary: Effort: Pulmonary effort is normal. Breath sounds: Normal breath sounds. No wheezing, rhonchi or rales. Abdominal: General: There is no distension. Palpations: There is no mass. Tenderness: There is abdominal tenderness (suprapubic, mild). There is no right CVA tenderness, left CVA tenderness, guarding or rebound. Neurological: Mental Status: She is alert. DATA REVIEWED: Most recent labs ASSESSMENT/PLAN: 1. Dysuria - ICD9: 788.1, ICD10: R30.0 Acute onset. Patient unable to provide urine sample in the office - send BACTERIAL CULTURE, URINE in the lab - start presumptive treatment with Keflex, see orders - follow-up in 2-3 days if no improvement or sooner if worsening Prescription instructions reviewed with patient as applicable. Potential red flag symptoms discussed with the patient. Reviewed appropriate action plan to take if red flag symptoms occur. Patient agreeable to treatment plan. Ayanna Patel APRN.[facility]01-13-2025 History of Present illness Narrative* Ayanna Patel APRN.[facility] - 06/04/2024 11:47 AM EST CC: Patient presents with: Urinary Frequency: with dysuria and pressure pain in lower pelvic area HPI Tasha Sweet is a 88 year old female who presents with complaint of possible UTI. These symptomshave been present for 4 days. Associated symptoms: burning, urgency, frequency, and pressure Denies: backpain, hematuria, fever, chills, sweats, abdominal pain, frequent or recurrent UTI's, kidney disease Treatments: increasing her fluids and uristat Review of Systems See HPI PAST MEDICAL HISTORY Diagnosis Date Corneal abrasion 08/13/2016 Os Diverticulosis of colon (without mention of hemorrhage) Essential hypertension, benign History of basal cell carcinoma 06/2016 left nasal sidewall Macular degeneration 2014 Personal history of colonic polyps Pure hypercholesterolemia Type II or unspecified type diabetes mellitus without mention of complication, not stated as uncontrolled PAST SURGICAL HISTORY Procedure Laterality Date COLONOSCOPY FLX DX W/COLLJ SPEC WHEN PFRMD 2002 Colonoscopy COLONOSCOPY FLX DX W/COLLJ SPEC WHEN PFRMD 10/28/08 PAST SURGICAL 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 (Dr. Hernández) apixaban (ELIQUIS) 5 mg tab(s) Take 1 tablet by mouth two times a day. ([facility]) losartan (COZAAR) 25 mg tablet Take 1 tablet by mouth once daily. ([facility]) metoprolol tartrate, short acting, (LOPRESSOR) 100 mg tablet Take 1 tablet by mouth two times a day. ([facility]) hydrocortisone valerate (WESTCORT) 0.2 % cream Apply to active or flaring lichen planus area daily until clear . AVOID eyes and eyelids. May us up to 14 days per rash flare up potassium chloride SR (MICRO-K) 8 mEq cpER Take 2 capsules by mouth once daily. atorvastatin (LIPITOR) 80 mg tablet Take 1 tablet by mouth once daily. furosemide (LASIX) 20 mg tablet Take 1 tablet by mouth once daily. sulfaSALAzine (AZULFIDINE) 500 mg tablet TAKE ONE TABLET BY MOUTH 3 TO 4 TIMES DAILY FOR LICHEN PLANUS, THEN TAPER BACK ON DOSE ABLE WHEN CONTROLLED DIRECTED VIT C/E/ZN/COPPR/LUTEIN/ZEAXAN (PRESERVISION AREDS 2 ORAL) Take by mouth twice daily. traZODone (DESYREL) 50 mg tablet Take 1 tablet by mouth at bedtime as needed (insomnia). (Patient not taking: Reported on 06/04/2024) Lactobacillus acidophilus (PROBIOTIC) 10 billion cell cap Take by mouth. (Patient not taking: Reported on 06/04/2024) Compression Knee Highs KNEE HIGH COMPRESSION STOCKINGS 30-40 MM. DX: EDEMA (Patient not taking: Reported on 12/14/2023) FAMILY HISTORY Problem Relation Age of Onset Diabetes Mother Heart Mother Hypertension Mother Diabetes Daughter Diabetes Daughter Diabetes Maternal Uncle Diabetes Maternal Uncle Diabetes Maternal Uncle Diabetes Maternal Uncle Macular Degen Other aunt Social History Tobacco Use Smoking status: Former Current packs/day: 0.00 Types: Cigarettes Quit date: 05/23/1956 Years since quittin.0 Smokeless tobacco: Never Substance Use Topics Alcohol use: No Drug use: No BP 134/72 Pulse 63 Temp 36.3 C (97.4 F) (Temporal) Wt 76.3 kg (168 lb 3.4 oz) SpO2 99% BMI 31.78 kg/m Physical Exam Vitals reviewed. Constitutional: Appearance: Normal appearance. Cardiovascular: Rate and Rhythm: Normal rate. Rhythm irregular. Heart sounds: Normal heart sounds. No murmur heard. Pulmonary: Effort: Pulmonary effort is normal. Breath sounds: Normal breath sounds. No wheezing, rhonchi or rales. Abdominal: General: There is no distension. Palpations: There is no mass. Tenderness: There is abdominal tenderness (suprapubic, mild). There is no right CVA tenderness, left CVA tenderness, guarding or rebound. Neurological: Mental Status: She is alert. DATA REVIEWED: Most recent labs ASSESSMENT/PLAN: 1. Dysuria - ICD9: 788.1, ICD10: R30.0 Acute onset. Patient unable to provide urine sample in the office - send BACTERIAL CULTURE, URINE in the lab - start presumptive treatment with Keflex, see orders - follow-up in 2-3 days if no improvement or sooner if worsening Prescription instructions reviewed with patient as applicable. Potential red flag symptoms discussed with the patient. Reviewed appropriate action plan to take if red flag symptoms occur. Patient agreeable to treatment plan. Ayanna Patel APRN.MAXIMILIAN documented in this encounterMer[facility]07-[facility]-2024 Telephone encounter Note * Telephone Encounter - Fiordaliza Whitley RN - 12/20/2023 8:30 AM EDT Patient notified of results and provider's instructions. Patient verbalizes understanding. Fiordaliza Whitley RN [facility]07-30-2024 Miscellaneous Notes* Telephone Encounter - Fiordaliza Whitley RN - 12/20/2023 8:30 AM EDT Patient notified of results and provider's instructions. Patient verbalizes understanding. Fiordaliza Whitley RN * Telephone Encounter - Marcelina Stark LPN - 12/20/2023 8:27 AM EDT Phoned patient left message to return call and ask to speak to a nurse for results. * Telephone Encounter - Jadyn Bowden MD - 12/19/2023 8:28 PM EDT Hemoglobin A1C (%) Date Value 06/18/2023 6.8 06/07/2022 7.0 10/30/2020 6.6 03/26/2019 5.6 10/27/2018 5.7 03/27/2018 5.7 02/18/2017 5.9 Hemoglobin A1C (POCT) (%) Date Value 12/14/2023 6.8 HgA1C is stable at 6.8--good. UACR shows leaking some protein through kidneys--make sure to stay hydrated. Recommend continue efforts at controlling blood sugars and blood pressures. Will check UACR and UWMIC when gets next set of labs to verify if having progressively increasing UACR (last time was 47; prior unremarkable) Spirometry (lung tests) normal. No COPD. Response to bronchodilators was negative (did not help; seems that smaller airways had decreased flow after medication was given. Hyperinflation and air trapping noted, but report indicated that the test might not be valid. Diffusion capacity normal (getting oxygen from air sacs into blood stream normal. So even though there is air trapping and hyperinflation as was seen in the CXR, she does not have COPD and does not look like has emphysema.. If has any further issues with SOB or COELLO, would refer to field administrative assistant to decide whether needs further testing. For now, test does not show evidence of asthma, COPD or emphysema. * Telephone Encounter - Marcelina Stark LPN - 12/19/2023 2:39 PM EDT Patient calling asking for the results of her lab work and her lung studies. She is having problemswith her my chart (tablet) so can not look it up right now. Latest Ref Rng 12/14/2023 Creatinine, Ur Random (UCRR) 20.0 - 300.0 mg/dL 24.5 Albumin, Urine Random mg/L 19.9 Albumin/Creat Ratio <30 mg/g 81 (H) Hemoglobin A1C (POCT) 4.3 - 5.6 % 6.8 ! Legend: (H) High ! Abnormal did not put in lung studies since 3 and they are long. Please advise documented in this encounterMer[facility]07-30-2024 Telephone encounter Note * Telephone Encounter - Marcelina Stark LPN - 12/20/2023 8:27 AM EDT Phoned patient left message to return call and ask to speak to a nurse for results. [facility]07-29-2024 Telephone encounter Note* Telephone Encounter - Jadyn Bowden MD - 12/19/2023 8:28 PM EDT Hemoglobin A1C (%) Date Value 06/18/2023 6.8 06/07/2022 7.0 10/30/2020 6.6 03/26/2019 5.6 10/27/2018 5.7 03/27/2018 5.7 02/18/2017 5.9 Hemoglobin A1C (POCT) (%) Date Value 12/14/2023 6.8 HgA1C is stable at 6.8--good. UACR shows leaking some protein through kidneys--make sure to stay hydrated. Recommend continue efforts at controlling blood sugars and blood pressures. Will check UACR and UWMIC when gets next set of labs to verify if having progressively increasing UACR (last time was 47; prior unremarkable) Spirometry (lung tests) normal. No COPD. Response to bronchodilators was negative (did not help; seems that smaller airways had decreased flow after medication was given. Hyperinflation and air trapping noted, but report indicated that the test might not be valid. Diffusion capacity normal (getting oxygen from air sacs into blood stream normal. So even though there is air trapping and hyperinflation as was seen in the CXR, she does not have COPD and does not look like has emphysema.. If has any further issues with SOB or COELLO, would refer to field administrative assistant to decide whether needs further testing. For now, test does not show evidence of asthma, COPD or emphysema. [facility]07-29-2024 Telephone encounter Note* Telephone Encounter - Marcelina Stark LPN - 12/19/2023 2:39 PM EDT Patient calling asking for the results of her lab work and her lung studies. She is having problemswith her my chart (tablet) so can not look it up right now. Latest Ref Rng 12/14/2023 Creatinine, Ur Random (UCRR) 20.0 - 300.0 mg/dL 24.5 Albumin, Urine Random mg/L 19.9 Albumin/Creat Ratio <30 mg/g 81 (H) Hemoglobin A1C (POCT) 4.3 - 5.6 % 6.8 ! Legend: (H) High ! Abnormal did not put in lung studies since 3 and they are long. Please advise [facility]07-25-2024 NoteHNO ID: [id number] Author: ALEX VILLAVICENCIO RPFT Service: ? Author Type: Respiratory Therapist Type: Progress Notes Filed: 12/15/2023 12:23 Note Text: PULM FUNCTION: Provider: Jadyn Bowden MD Assisting Tech: Alex Villavicencio RPFT Spirometry w/BD: 1 DLCO: 1 LV - [facility] of Present illness Narrative* Alex Villavicencio RPFT - 12/15/2023 12:20 PM EDT PULM FUNCTION: Provider: Jadyn Bowden MD Assisting Tech: Alex Villavicencio RPFT Spirometry w/BD: 1 DLCO: 1 LV - Box: 1 documented in [address] encounterMer[facility]07-24-2024 Instructions* Patient Instructions* Jadyn Bowden MD - 12/14/2023 3:41 PM EDT Screening schedule The following prevention plan is recommended: Depression Screening Never done Anxiety Screening Never done RSV Vaccine(1 - 1-dose 60+ series) Never done Urine Albumin:Creatinine Ratio due on 06/07/2023 WHAT YOU CAN DO TO PREVENT FALLS Many falls can be prevented. By making some changes, you can lower your chances of falling. Four things YOU can do to prevent falls for you* and your caregiver 1. Begin a regular exercise program Exercise is one of the most important ways to lower your chances of falling. It makes you stronger and helps you feel better. Exercises that improve balance and coordination (like Roque Chi) are the most helpful. Lack of exercise leads to weakness and increases your chances of falling. Ask your doctor or health care provider about the best type of exercise program for you. 2. Have your health care provider review your medicines Have your doctor or pharmacist review all the medicines you take, even [id number] medicines. As you get older, the way medicines work in your body can change. Some medicines, or combinations of medicines, can make you sleepy or dizzy andcan cause you to fall. 3. Have your vision checked Have your eyes checked by an eye doctor at least once a year. You may be wearing the wrong glasses or have a condition like glaucoma or cataracts that limits your vision. Poor vision can increase your chances of falling. 4. Make your home safer About half of all falls happen at home. To make your home safer: Remove things you can trip over (like papers, books, clothes, and shoes) from stairs and places where you walk. Remove small throw rugs or use double-sided tape to keep the rugs from slipping. Keep items you use often in cabinets you can reach easily without using a step stool. Have grab bars put in next to your toilet and in the tub or shower. Use non-slip mats in the bathtub and on shower floors. Improve the lighting in your home. As you get older, you need brighter lights to see well. Hang light-weight curtains or shades to reduce glare. Have handrails and lights put in on all staircases. Wear shoes both inside and outside the house. Avoid going barefoot or wearing slippers. For more information, contact: Centers for Disease Control and Prevention www.cdc.gov/injury * This information may not apply if you have certain medical conditions. documented in this encounterMercy Health St. [facility]07-24-2024 NoteHNO ID: [id number] Author: JADYN BOWDEN MD Service: ? Author Type: Physician Type: Progress Notes Filed: 01/24/2024 23:53 Note Text: This note was created using Hythiamriter. Subjective Tasha Sweet is a 88 year old female. HISTORY Tasha Sweet is a 88 year old lady here for yearly exam and follow up appointment. Reviewed had labs for cardiology yesterday. Does not care for sweets and breads like used to. Discussed DM diagnosis. Off meds. Reviewed only taking 1 potassium daily. Yesterday weak and SOB. Yessenia Vee had her get labs. Iva better after took regular meds. Stopped trazodone. Takes only if needed but has not needed. Naps in afternoon and can sleep well at night or do something for an hour then back to sleep. Always was lousy sleeper Sore on forehead the past year. Gets crust then that comes off. Slightly larger since last year. Also lesion on top of manubrium--small,pearly. Has not seen derm yet. Had prior MOHS. PAST MEDICAL HISTORY Diagnosis Date Corneal abrasion 08/13/2016 Os Diverticulosis of colon (without mention of hemorrhage) Essential hypertension, benign History of basal cell carcinoma 06/2016 left nasal sidewall Macular degeneration 2014 Personal history of colonic polyps Pure hypercholesterolemia Type II or unspecified type diabetes mellitus without mention of complication, not stated as uncontrolled Current Outpatient Medications Medication Sig hydrocortisone valerate (WESTCORT) 0.2 % cream Apply to active or flaring lichen planus area daily until clear . AVOID eyes and eyelids. May us up to 14 days per rash flare up traZODone (DESYREL) 50 mg tablet Take 1 tablet by mouth at bedtime as needed (insomnia). metoprolol tartrate, short acting, (LOPRESSOR) 100 mg tablet Take 1 tablet by mouth twice daily. amLODIPine (NORVASC) 5 mg tablet Take 1 tablet by mouth once daily. (Dr. Esparza) losartan (COZAAR) 25 mg tablet Take 1 tablet by mouth once daily. (Dr. Esparza) potassium chloride SR (MICRO-K) 8 mEq cpER Take 2 capsules by mouth once daily. atorvastatin (LIPITOR) 80 mg tablet Take 1 tablet by mouth once daily. Lactobacillus acidophilus (PROBIOTIC) 10 billion cell cap Take by mouth. furosemide (LASIX) 20 mg tablet Take 1 tablet by mouth once daily. apixaban (ELIQUIS) 5 mg tab(s) Take 1 tablet by mouth twice daily. sulfaSALAzine (AZULFIDINE) 500 mg tablet TAKE ONE TABLET BY MOUTH 3 TO 4 TIMES DAILY FOR LICHEN PLANUS, THEN TAPER BACK ON DOSE ABLE WHEN CONTROLLED DIRECTED VIT C/E/ZN/COPPR/LUTEIN/ZEAXAN (PRESERVISION AREDS 2 ORAL) Take by mouth twice daily. Cholecalciferol, Vitamin D3, 25 mcg (1,000 unit) cap Take 1 capsule by mouth once daily. (Patient not taking: Reported on 12/14/2023) Compression Knee Highs KNEE HIGH COMPRESSION STOCKINGS 30-40 MM. DX: EDEMA (Patient not taking: Reported on 12/14/2023) No current facility-administered medications for this visit. ALLERGIES Allergen Reactions Codeine Vomiting Lisinopril Cough FAMILY HISTORY Problem Relation Age of Onset Diabetes Mother Heart Mother Hypertension Mother Diabetes Daughter Diabetes Daughter Diabetes Maternal Uncle Diabetes Maternal Uncle Diabetes Maternal Uncle Diabetes Maternal Uncle Macular Degen Other aunt Social History Tobacco Use Smoking status: Former Types: Cigarettes Quit date: 05/23/1956 Years since quittin.6 Smokeless tobacco: Never Substance Use Topics Alcohol use: No Drug use: No Review of Systems Objective BP 128/80 Pulse 70 Resp 18 Ht 154.9 cm (5' 1) Wt 76.6 kg (168 lb 12.8 oz) SpO2 100% BMI 31.89 kg/m? Physical Exam Vitals reviewed. Constitutional: Appearance: She is well-developed. HENT: Head: Normocephalic and atraumatic. Right Ear: External ear normal. Left Ear: External ear normal. Nose: Nose normal. Eyes: Conjunctiva/sclera: Conjunctivae normal. Neck: Thyroid: No thyromegaly. Vascular: No carotid bruit. Cardiovascular: Rate and Rhythm: Normal rate. Rhythm irregularly irregular. Pulses: Normal pulses. Heart sounds: Normal heart sounds. No murmur heard. No friction rub. No gallop. Pulmonary: Effort: Pulmonary effort is normal. Breath sounds: Normal breath sounds. Abdominal: General: Bowel sounds are normal. There is no distension. Palpations: Abdomen is soft. There is no mass. Tenderness: There is no abdominal tenderness. Musculoskeletal: General: No deformity. Normal range of motion. Right lower leg: No edema. Left lower leg: No edema. Lymphadenopathy: Cervical: No cervical adenopathy. Skin: General: Skin is warm and dry. Coloration: Skin is not jaundiced or pale. Findings: No rash. Neurological: General: No focal deficit present. Mental Status: She is alert and oriented to person, place, and time. Cranial Nerves: No cranial nerve deficit. Sensory: No sensory deficit. Motor: No abnormal muscle tone. Coor (more content not included)...[facility]07-24-2024 History of Present illness Narrative* Jadyn Bowden MD - 12/14/2023 3:02 PM EDT Images from the original note were not included. This note was created using Hythiamriter. Subjective Tasha Sweet is a 88 year old female. HISTORY Tasha Sweet is a 88 year old lady here for yearly exam and follow up appointment. Reviewed had labs for cardiology yesterday. Does not care for sweets and breads like used to. Discussed DM diagnosis. Off meds. Reviewed only taking 1 potassium daily. Yesterday weak and SOB. Yessenia Vee had her get labs. Iva better after took regular meds. Stopped trazodone. Takes only if needed but has not needed. Naps in afternoon and can sleep well at night or do something for an hour then back to sleep. Always was lousy sleeper Sore on forehead the past year. Gets crust then that comes off. Slightly larger since last year. Also lesion on top of manubrium--small,pearly. Has not seen derm yet. Had prior MOHS. PAST MEDICAL HISTORY Diagnosis Date Corneal abrasion 08/13/2016 Os Diverticulosis of colon (without mention of hemorrhage) Essential hypertension, benign History of basal cell carcinoma 06/2016 left nasal sidewall Macular degeneration 2014 Personal history of colonic polyps Pure hypercholesterolemia Type II or unspecified type diabetes mellitus without mention of complication, not stated as uncontrolled Current Outpatient Medications Medication Sig hydrocortisone valerate (WESTCORT) 0.2 % cream Apply to active or flaring lichen planus area daily until clear . AVOID eyes and eyelids. May us up to 14 days per rash flare up traZODone (DESYREL) 50 mg tablet Take 1 tablet by mouth at bedtime as needed (insomnia). metoprolol tartrate, short acting, (LOPRESSOR) 100 mg tablet Take 1 tablet by mouth twice daily. amLODIPine (NORVASC) 5 mg tablet Take 1 tablet by mouth once daily. (Dr. Esparza) losartan (COZAAR) 25 mg tablet Take 1 tablet by mouth once daily. (Dr. Esparza) potassium chloride SR (MICRO-K) 8 mEq cpER Take 2 capsules by mouth once daily. atorvastatin (LIPITOR) 80 mg tablet Take 1 tablet by mouth once daily. Lactobacillus acidophilus (PROBIOTIC) 10 billion cell cap Take by mouth. furosemide (LASIX) 20 mg tablet Take 1 tablet by mouth once daily. apixaban (ELIQUIS) 5 mg tab(s) Take 1 tablet by mouth twice daily. sulfaSALAzine (AZULFIDINE) 500 mg tablet TAKE ONE TABLET BY MOUTH 3 TO 4 TIMES DAILY FOR LICHEN PLANUS, THEN TAPER BACK ON DOSE ABLE WHEN CONTROLLED DIRECTED VIT C/E/ZN/COPPR/LUTEIN/ZEAXAN (PRESERVISION AREDS 2 ORAL) Take by mouth twice daily. Cholecalciferol, Vitamin D3, 25 mcg (1,000 unit) cap Take 1 capsule by mouth once daily. (Patient not taking: Reported on 12/14/2023) Compression Knee Highs KNEE HIGH COMPRESSION STOCKINGS 30-40 MM. DX: EDEMA (Patient not taking: Reported on 12/14/2023) No current facility-administered medications for this visit. ALLERGIES Allergen Reactions Codeine Vomiting Lisinopril Cough FAMILY HISTORY Problem Relation Age of Onset Diabetes Mother Heart Mother Hypertension Mother Diabetes Daughter Diabetes Daughter Diabetes Maternal Uncle Diabetes Maternal Uncle Diabetes Maternal Uncle Diabetes Maternal Uncle Macular Degen Other aunt Social History Tobacco Use Smoking status: Former Types: Cigarettes Quit date: 05/23/1956 Years since quittin.6 Smokeless tobacco: Never Substance Use Topics Alcohol use: No Drug use: No Review of Systems Objective BP 128/80 Pulse 70 Resp 18 Ht 154.9 cm (5' 1) Wt 76.6 kg (168 lb 12.8 oz) SpO2 100% BMI 31.89 kg/m Physical Exam Vitals reviewed. Constitutional: Appearance: She is well-developed. HENT: Head: Normocephalic and atraumatic. Right Ear: External ear normal. Left Ear: External ear normal. Nose: Nose normal. Eyes: Conjunctiva/sclera: Conjunctivae normal. Neck: Thyroid: No thyromegaly. Vascular: No carotid bruit. Cardiovascular: Rate and Rhythm: Normal rate. Rhythm irregularly irregular. Pulses: Normal pulses. Heart sounds: Normal heart sounds. No murmur heard. No friction rub. No gallop. Pulmonary: Effort: Pulmonary effort is normal. Breath sounds: Normal breath sounds. Abdominal: General: Bowel sounds are normal. There is no distension. Palpations: Abdomen is soft. There is no mass. Tenderness: There is no abdominal tenderness. Musculoskeletal: General: No deformity. Normal range of motion. Right lower leg: No edema. Left lower leg: No edema. Lymphadenopathy: Cervical: No cervical adenopathy. Skin: General: Skin is warm and dry. Coloration: Skin is not jaundiced or pale. Findings: No rash. Neurological: General: No focal deficit present. Mental Status: She is alert and oriented to person, place, and time. Cranial Nerves: No cranial nerve deficit. Sensory: No sensory deficit. Motor: No abnormal muscle tone. Coordination: Coordination normal. Deep Tendon Reflexes: Reflexes normal. Psychiatric: Attention and Perception: Attention and perception normal. Mood and Affect: Mood and affect normal. Speech: Speech normal. Behavior: Behavior normal. Thought Content: Thought content normal. Cognition and Memory: Cognition and memory normal. Judgment: Judgment normal. Latest Ref Rng 06/07/2022 06/18/2023 WBC 3.70 - 11.00 k/uL 15.26 (H) 7.87 RBC 3.90 - 5.20 m/uL 4.37 4.29 Hemoglobin 11.5 - 15.5 g/dL 13.3 13.2 Hematocrit 36.0 - 46.0 % 41.8 41.7 MCV 80.0 - 100.0 fL 95.7 97.2 MCH 26.0 - 34.0 pg 30.4 30.8 MCHC 30.5 - 36.0 g/dL 31.8 31.7 RDW-CV 11.5 - 15.0 % 13.4 13.6 Platelet Count 150 - 400 k/uL 331 204 MPV 9.0 - 12.7 fL 11.0 11.4 Neut% % 61.2 Abs Neut (ANC) 1.45 - 7.50 k/uL 9.35 (H) Lymph% % 27.8 Abs Lymph 1.00 - 4.00 k/uL 4.24 (H) [place]% % 8.5 Abs [place] <0.87 k/uL 1.30 (H) Eosin% % 0.3 Abs Eosin <0.46 k/uL 0.04 Baso% % 0.5 Abs Baso <0.11 k/uL 0.07 Immature Gran % % 1.7 IMMATURE GRANS (ABS) <0.10 k/uL 0.26 (H) NRBC /100 WBC 0.0 Absolute nRBC <0.01 k/uL <0.01 <0.01 DTYPE Auto Protein, Total 6.3 - 8.0 g/dL 7.6 6.6 Albumin 3.9 - 4.9 g/dL 4.0 4.0 Calcium 8.5 - 10.2 mg/dL 10.0 9.5 Bilirubin, Total 0.2 - 1.3 mg/dL 0.4 0.7 Alkaline Phosphatase 34 - 123 U/L 104 98 AST 13 - 35 U/L 30 17 ALT 7 - 38 U/L 51 (H) 14 Glucose 74 - 99 mg/dL 227 (H) 149 (H) BUN 7 - 21 mg/dL 29 (H) 23 (H) Creatinine 0.58 - 0.96 mg/dL 1.03 (H) 1.10 (H) Sodium 136 - 144 mmol/L 134 (L) 142 Potassium 3.7 - 5.1 mmol/L 4.5 4.1 Chloride 97 - 105 mmol/L 97 105 CO2 22 - 30 mmol/L 23 25 Anion Gap 9 - 18 mmol/L 14 12 eGFR >=60 mL/min/1.73m 53 (L) 49 (L) Cholesterol, Total <200 mg/dL 140 134 Triglyceride <150 mg/dL 122 81 HDL Cholesterol >39 mg/dL 32 (L) 47 Non HDL Cholesterol <130 mg/dL 108 87 Fasting Time hrs 11 14 VLDL Cholesterol <30 mg/dL 24 16 TC:HDL Ratio <5.10 4.38 2.85 LDL Cholesterol <100 mg/dL 84 71 LDL:HDL Ratio <2.54 2.63 (H) 1.51 Creatinine, Ur Random (UCRR) 20.0 - 300.0 mg/dL 41.4 Albumin, Urine Random mg/L 19.3 Albumin/Creat Ratio <30 mg/g 47 (H) Hemoglobin A1C 4.3 - 5.6 % 7.0 (H) 6.8 (H) Estimated Average Glucose mg/dL 154 148 Legend: (H) High (L) Low Hemoglobin A1C (%) Date Value 06/18/2023 6.8 06/07/2022 7.0 10/30/2020 6.6 03/26/2019 5.6 10/27/2018 5.7 03/27/2018 5.7 02/18/2017 5.9 Assessment and Plan Tasha Sweet is a 88 year old female here for a Medicare wellness visit. Medicare Health Risk Assessment General Health Good Exercise: Minutes/Day 0 min Exercise: Days/Week 0 days Alcohol: Daily Use Never Alcohol: Drinks/Day Patient does not drink Alcohol: 6 or more drinks Never Feel off balance Yes--uses walker Concerns: Teeth/Dentures No Concerns: Sexual function No Troubled by feelings None of the above Frequency: Eating healthy diet Several days ADLs requiring help None of the above Safety precautions in home/vehicle Yes Smoke, vape, chews tobacco No Difficulty hearing Yes, I wear a hearing aid Difficulty seeing Yes--macular degneration, dry Current Providers Specialists: I have reviewed specialist-related care of the patient in the medical record. Outside specialists seen: Dr. Hernández and Rogers at [facility]. Medical/Family history review Reviewed and updated problem list, medical/surgical/family/social history, medications, and allergies. Opioid use review Opioid Medications (last 90 days) No data to display Anxiety/Depression screening PHQ-2 Score: 0 (Lower risk for depression) Recommendation: no further intervention at this time Cognitive screening Mini Cog Score: 5 Cognitive screening reviewed and No further action needed (score 3-5). Functional Observation Was the patient's Timed Up & Go test unsteady or ? 12 seconds? No Advance Care Planning Surrogate decision maker and/or advance care plan documented Has MARIAHPOKylah tomas LW--can drop off copy. Daughters are her surrogate decision maker. Measurements BP 128/80 Pulse 70 Resp 18 Ht 154.9 cm (5' 1) Wt 76.6 kg (168 lb 12.8 oz) SpO2 100% BMI 31.89 kg/m Vision Screening: Follows with optometry/ophthalmology--seen every 6 months for dry MD Assessment/Plan Medicare annual wellness visit, subsequent (Z) - Counseled on healthy diet and regular exercise - Fall avoidance information provided - Personalized prevention plan provided Encounter Diagnosis ICD-10-CM 1. Medicare annual wellness visit, subsequent Z. 2. Controlled type 2 diabetes mellitus without complication, without long-term current use of insulin (HCC) E11.9 HEMOGLOBIN A1C (POC) HEMOGLOBIN A1C COMPREHENSIVE METABOLIC PANEL COMPLETE BLOOD COUNT LIPID PANEL BASIC ALBUMIN/CREATININE RATIO, URINE CANCELED: ALBUMIN/CREATININE RATIO, URINE Continue management. Follow up labs ordered 3. Lesion of skin of face L98.9 CONSULT TO DERMATOLOGY Nonhealing lesion on forehead that is getting larger. History of BCC 4. Skin lesion of chest wall L98.9 CONSULT TO DERMATOLOGY Small nodule about 1 to 2mm diameter over manubrium 5. History of basal cell carcinoma (BCC) excision Z98.890 CONSULT TO DERMATOLOGY Z85.828 6. COELLO (dyspnea on exertion) R06.09 SPIROMETRY - BASELINE AND POST DILATOR LUNG VOLUMES LUNG DIFFUSION CAPACITY (DLCO) Further evaluation as indicated 7. BENIGN HYPERTENSION I10 COMPREHENSIVE METABOLIC PANEL COMPLETE BLOOD COUNT LIPID PANEL BASIC losartan (COZAAR) 25 mg tablet metoprolol tartrate, short acting, (LOPRESSOR) 100 mg tablet Continue management 8. Mixed hyperlipidemia E78.2 LIPID PANEL BASIC Continue management 9. 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 Vitamin D deficiency E55.9 VITAMIN D 25 HYDROXY Adjust management as indicated 12. Abnormal CXR R93.89 SPIROMETRY - BASELINE AND POST DILATOR LUNG VOLUMES LUNG DIFFUSION CAPACITY (DLCO) Further evaluation as indicated 13. Encounter for screening examination for other mental health and behavioral disorders Z13.39 ANXIETY SCREENING 14. Screening for depression Z13.31 DEPRESSION SCREENING Patient here for yearly exam and follow up. Above issues addressed with patient. Patient involved in shared decision making for management of medical issues. History and medications reviewed. Epic updated as needed Refills taken care of and meds adjusted as indicated after reviewed history, exam and labs. Health Maintenance reviewed. Updated record and/or ordered tests as recorded. Encouraged on efforts at healthy diet and regular exercise and adequate sleep. Jadyn Bowden MD documented in [facility] encounter[facility] Telephone encounter Note * Telephone Encounter - Jessie Hurt APRN.CNS - 09/23/2023 3:10 PM EDT ok [facility]05-03-2024 Miscellaneous Notes* Telephone Encounter - Jessie Hurt APRN.CNS - 09/23/2023 3:10 PM EDT ok * Telephone Encounter - Rocio Dejesus RN - 09/23/2023 11:21 AM EDT [facility] with [facility] calling regarding prescription received today for patient's hydrocortisone valerate 0.2% cream . Pharmacy is requesting instructions for how many times per day this is to be used. Please advise, . Rocio Dejesus RN documented in this encounterMer[facility] Telephone encounter Note * Telephone Encounter - Rocio Dejesus RN - 09/23/2023 11:21 AM EDT Venus with [facility] calling regarding prescription received today for patient's hydrocortisone valerate 0.2% cream . Pharmacy is requesting instructions for how many times per day this is to be used. Please advise, . Rocio Dejesus RN [facility]05-03-2024 History of Present illness Narrative* Jessie Hurt, REJI.COMPUTER LANGUAGE CODER - 09/23/2023 10:40 AM EDT No chief complaint on file. 88 year old female presents with report of UTI symptoms about 1 week ago for which she took 2 dosesof Azo and it seemed to clear. Then recurred yesterday. She has noted lower abdominal discomfort, low back pain, dysuria since yesterday. Afebrile. No recent UTI. No systemic symptoms. Review of Systems Constitutional: Negative. Gastrointestinal: Positive for abdominal pain. Genitourinary: Positive for dysuria. Musculoskeletal: Positive for back pain. BP 136/74 Pulse 73 Resp 16 Wt 75.3 kg (166 lb) BMI 31.37 kg/m Physical Exam Vitals and nursing note reviewed. Constitutional: Appearance: Normal appearance. HENT: Head: Normocephalic and atraumatic. Eyes: Conjunctiva/sclera: Conjunctivae normal. Cardiovascular: Rate and Rhythm: Normal rate. Pulmonary: Effort: Pulmonary effort is normal. Skin: General: Skin is warm and dry. Neurological: General: No focal deficit present. Mental Status: She is alert and oriented to person, place, and time. Glucose (mg/dL) Date Value 06/18/2023 149 10/30/2020 146 Potassium (mmol/L) Date Value 06/18/2023 4.1 10/30/2020 4.4 Sodium (mmol/L) Date Value 06/18/2023 142 10/30/2020 142 Chloride (mmol/L) Date Value 06/18/2023 105 10/30/2020 105 CO2 (mmol/L) Date Value 06/18/2023 25 10/30/2020 20 Creatinine (mg/dL) Date Value 06/18/2023 1.10 10/30/2020 1.23 BUN (mg/dL) Date Value 06/18/2023 23 10/30/2020 18 Anion Gap (mmol/L) Date Value 06/18/2023 12 10/30/2020 17 Calcium (mg/dL) Date Value 10/30/2020 9.4 Calcium, Total (mg/dL) Date Value 06/18/2023 9.5 ASSESSMENT: Uncomplicated UTI ASSESSMENT/PLAN: 1. Lower abdominal pain - ICD9: 789.09, ICD10: R10.30 (primary diagnosis) - UA DIP B/O - URINE CULTURE 2. Dysuria - ICD9: 788.1, ICD10: R30.0 acute - UA positive - Send urine for culture - Begin treatment with Bactrim DS BID for 3 days - Patient education for prevention given - UA DIP B/O - URINE CULTURE 3. Lichen planus - ICD9: 697.0, ICD10: L43.9 - HYDROCORTISONE VALERATE 0.2 % TOPICAL CREAM 4. UTI symptoms - ICD9: 788.99, ICD10: R39.9 - SULFAMETHOXAZOLE 800 MG-TRIMETHOPRIM 160 MG TABLET She will let us know if not feeling improved. Jessie Hurt APRN.CNS Medical Decision Making: Problems: Low: Acute, uncomplicated illness or injury Data: Unique test(s) ordered: 2 Risk: Moderate: Drug management Medical Decision Making Level: 3 - Low documented in this encounterMer[facility] Instructions* Patient Instructions* Jessie Hurt APRN.CNS - 09/23/2023 9:41 AM EDT Images from the original note were not included. Urinary Problem-When to Seek Help? Symptoms of a urinary problem may lead to a bladder infection. Women are at greater risk of a urinary tract infection than are men. Most urinary tract infections in women are caused by bacteria and involve the lower urinary tract including the bladder and urethra. Symptoms: Pain or burning when passing urine, urgency, frequency, blood in the urine, difficult emptying your bladder, and lower abdominal fullness or pressure. Common Causes: Sexual intercourse, menopause, constipation, uncontrolled diabetes, dehydration and feminine products such as tampons, and kidney stones. When to Get Help: Seek medical attention if you get frequent bladder infections, urinary concerns such as leakage, blood in the urine or frequent need to urinate. You may be recommended to get help from a specialist, such as a urologist. Diagnosis & Treatment: Lab testing may include: urinalysis, and urine culture that can be collected in the lab or walk-in clinic. Most bladder infections can easily be treated. A physician, nurse practitioner or physician news production assistant may treat with a short course of an antibiotic. Delaying treatment can lead to worsening symptoms, like a kidney infection. Self-Care: Avoid a full bladder, bubble baths, bath oils, food and beverages that may irritate the bladder such as caffeine. Avoid spermicide foam and diaphragms Void before and after sexual intercourse Wipe front to back after using the bathroom. Stay hydrated Stop Smoking Follow-up Care: Follow up testing is not needed in healthy young women if symptoms resolve. documented in this encounterMer[facility]02-[facility]-2024 History of Present illness Narrative* Hayley Boyd MA - 07/14/2023 1:34 PM EST POPULATION HEALTH NAVIGATION OUTREACH Action/FYI July 14, 2023 Losartan and Atorvastatin refilled both on 07/14/2023 per Med reconciliation. Hayley Boyd MA Patient Identified by Name and : NO Outreach Outcome/Action Med reconciliation review only Did you use a PCP flex slot to schedule this appointment? N/A Reason for Outreach Med Adherence Payer: Payor: [employer] CROSS AND BLUE [employer] / Plan: [employer] MEDICARE ADVANTAGE HMO / Product Type: HMO / Care Gap Reviewed:: N/A Reminder: Reminder note to check Health Maintenance for items below Health Maintenance items due: RSV Vaccine(1 - 1-dose 60+ series) Never done Urine Albumin:Creatinine Ratio due on 06/07/2023 Navigation Signature: Hayley Boyd MA July 14, 2023 1:36 PM documented in this encounterMer[facility]01-20-2023 Miscellaneous Notes* Telephone Encounter - Ángela Santillan RN - 06/11/2022 3:58 PM EST Pt called and is notified of providers results and instructions. Pt voices understanding. Ángela Santillan RN * Telephone Encounter - Jessie Hurt APRN.VIRGILIO - 06/11/2022 3:39 PM EST Please let her know labs are in acceptable range considering her recent illness. Recommend getting Approximately 64 ounces of fluid per day. Would recheck in 6 months before her next visit. documented in this encounterMer[facility]01-17-2023 Miscellaneous Notes* Telephone Encounter - Julieta Desai LPN - 06/08/2022 4:03 PM EST Patient notified, verbalized understanding. Julieta Desai LPN * Telephone Encounter - Ángela Santillan RN - 06/07/2022 9:50 AM EST Called and left a voicemail for the Patient to call back and ask for a nurse to receive the providers message. Ángela Santillan RN * Telephone Encounter - Jessie Hurt APRN.CNS - 06/04/2022 4:54 PM EST Please let her know no acute findings on CXR. documented in this encounterMer[facility]01-16-2023 History of Present illness Narrative* Jessie Hurt APRN.CNS - 06/07/2022 9:40 AM EST SUBJECTIVE Tasha Sweet is a 86 year old female who presents with 10 days of symptoms that are worse than when seen in 05/26/2022 where she presented with 2 days of cough chest congestion and runny nose, was treated with benzonatate and supportive care. At her previous visit she had chills productive cough shortness of breath fatigue muscle aches headache nasal congestion and drainage. Today notes she is feeling much improved, not yet back to baseline. OTC meds/remedies that patient has tried: acetaminophen and Mucinex. High risk category assessment Age > 60 years old Exposures: Sick contacts? Yes, daughter Family or close contacts with confirmed/probable COVID-19 in last 14 days? no She reports that she quit smoking about 66 years ago. Her smoking use included cigarettes. She has never used smokeless tobacco. OBJECTIVE PHYSICAL EXAM: BP 136/82 Pulse 72 Resp 16 Wt 72.6 kg (160 lb) SpO2 98% BMI 30.23 kg/m General appearance: tired/ill appearing, alert, cooperative, pleasant, in no acute distress Head: Normocephalic Eyes: conjunctiva/corneas normal Ears: R TM - clear with good landmarks, nl light reflex, some cerumen, L TM - clear with good landmarks, nl light reflex, some cerumen, Nose: clear Oropharynx: moist without lesions, mild erythema to GPA Neck: supple and small, benign anterior cervical nodes bilaterally Heart: regular rate and rhythm, without murmur Lungs: clear to auscultation, without rales or wheeze, good air exchange, diminished breath sounds at bases ASSESSMENT/PLAN: 1. Acute cough - ICD9: 786.2, ICD10: R05.1 She notes feeling significant improvement since last here. Continue current treatment unchanged. She will let us know if not continuing to feel improved. Jessie Hurt APRN.CNS Medical Decision Making: Problems: Low: Acute, uncomplicated illness or injury Risk: Moderate: Drug management Medical Decision Making Level: 3 - Low documented in this encounterMer[facility]01-12-2023 Miscellaneous Notes* Result Encounter Note - Jessie Hurt APRN.CNS - 06/03/2022 12:20 PM EST No acute findings documented in this encounterMercy [facility] St. [facility]01-12-2023 Progress note* Result Encounter Note - Jessie Hurt APRN.CNS - 06/03/2022 12:20 PM EST No acute findings [facility]01-12-2023 History of Present illness Narrative* Jessie Hurt APRN.CNS - 06/03/2022 11:20 AM EST SUBJECTIVE Tasha Sweet is a 86 year old female who presents with 10 days of symptoms that are worse than when seen in 05/26/2022 where she presented with 2 days of cough chest congestion and runny nose, was treated with benzonatate and supportive care. Current symptoms include: Fever (?100.4F): Perceived or Chills: Yes Cough: Yes, productive Shortness of breath: Yes or Difficulty breathing: No Fatigue: Yes Muscle aches: Yes, now resolved Headache: Yes New loss of smell or taste: No Sore throat: No Nasal congestion: Yes or Rhinorrhea: Yes ; little Nausea: No or Vomiting: No Diarrhea: No OTC meds/remedies that patient has tried: acetaminophen and Mucinex. High risk category assessment Age > 60 years old Exposures: Sick contacts? Yes, daughter Family or close contacts with confirmed/probable COVID-19 in last 14 days? no She reports that she quit smoking about 66 years ago. Her smoking use included cigarettes. She has never used smokeless tobacco. OBJECTIVE PHYSICAL EXAM: BP 128/78 Pulse 82 Temp 36.7 C (98 F) Resp 16 Wt 71.7 kg (158 lb) SpO2 98% BMI 29.85 kg/m General appearance: tired/ill appearing, alert, cooperative, pleasant, in no acute distress Head: Normocephalic Eyes: conjunctiva/corneas normal Ears: R TM - clear with good landmarks, nl light reflex, some cerumen, L TM - clear with good landmarks, nl light reflex, some cerumen, Nose: clear Oropharynx: moist without lesions, mild erythema to GPA Neck: supple and small, benign anterior cervical nodes bilaterally Heart: regular rate and rhythm, without murmur Lungs: clear to auscultation, without rales or wheeze, good air exchange, diminished breath sounds at bases ASSESSMENT/PLAN (Z23) Encounter for immunization (primary encounter diagnosis) ASSESSMENT/PLAN: 1. Acute cough - ICD9: 786.2, ICD10: R05.1 (primary diagnosis) She notes worsening symptoms, have concern for CAP. - XR CHEST 2V FRONTAL/LAT - METHYLPREDNISOLONE 4 MG TABLETS IN A DOSE PACK - BENZONATATE 100 MG CAPSULE - BENZONATATE 100 MG CAPSULE - AMOXICILLIN 500 MG CAPSULE 2. Mixed hyperlipidemia - ICD9: 272.2, ICD10: E78.2 - LIPID PANEL BASIC 3. Controlled type 2 diabetes mellitus without complication, without long-term current use of insulin (HCC) - ICD9: 250.00, ICD10: E11.9 - ALBUMIN/CREAT RATIO RND UR - HGB A1C - LIPID PANEL BASIC - COMP METABOLIC PANEL - CBC + DIFF 4. Viral URI with cough - ICD9: 465.9, ICD10: J06.9 - BENZONATATE 100 MG CAPSULE 5. Shortness of breath - ICD9: 786.05, ICD10: R06.02 Concern for possible CAP - XR CHEST 2V FRONTAL/LAT Supportive care, lots of rest, consider staying with someone/family. Recheck Tuesday. ER for severe or concerning symptoms. Jessie Hurt APRN.CNS Medical Decision Making: Problems: Low: Acute, uncomplicated illness or injury Data: Unique test(s) ordered: 3+ Risk: Moderate: Drug management Medical Decision Making Level: 4 - Moderate documented in this encounter[facility]23 Instructions* Patient Instructions* Lyn Bernard APRN.CNP - 05/26/2022 11:47 AM EST ASSESSMENT/PLAN: 1. Viral URI with cough - ICD9: 465.9, ICD10: J06.9 (primary diagnosis) - Discussed viral etiology and rationale for treatment. - Symptomatic treatment with prn analgesia - Supportive care with fluids and rest - BENZONATATE 100 MG CAPSULE 2. Laryngitis - ICD9: 464.00, ICD10: J04.0 - STREP A MOLECULAR (POC) - Follow-up with your PCP in 3-5 days if symptoms have not improved or sooner if symptoms worsen - Discussed red flags and need for immediate medical evaluation if any occur. - Discussed supportive care treatment with fluids, rest and analgesia. - Discussed expected course of illness Lyn Bernard APRN.CNP Treatment for Viral Upper Respiratory Tract Infections Your body will kill off the virus by itself. Additionally, you can prime your body's immune system.This may help you get better more quickly. Drink lots of fluids Make sure you are eating well Get plenty of rest We do not have any medications that kill off these viruses. Antibiotics are used to treat bacterialinfections; however, they are not active against viral infections. There are some things that mighthelp you feel better, though. Vaporizers, humidifiers, hot showers, and hot fluids help open respiratory and sinus passages Karns Nasal [place] may offer relief of nasal and head congestion Hunter's Vapor Rub may relieve congestion Tylenol and Advil help control fevers and headaches Salt water gargles help relieve sore throats Chloraceptic spray or throat lozenges may also help relieve sore throat symptoms Occasionally, viral infections turn into something more serious. You should see your doctor or return to the Urgent Care if: You have fevers for longer than five days You have fevers above 102 degrees You are still sick after 10 days You have shortness of breath or wheezing After several days you are getting worse rather than better documented in this encounterMer[facility]23 History of Present illness Narrative* Lyn Bernard APRN.CNP - 05/26/2022 11:41 AM EST Subjective Cough Pertinent negatives include no chest pain, no chills, no sore throat, no myalgias and no shortness of breath. Tasha Sweet is a 86 year old female who presents with 2 days of a cough and chest congestion and runny nose. She has had laryngitis. The first day of the illness she had diarrhea but that has resolved. She has not had a fever. She was around her grand-daughter in law who had viral URIsymptoms also. Review of Systems Constitutional: Negative for chills and fever. HENT: Positive for congestion. Negative for sore throat. Respiratory: Positive for cough. Negative for sputum production and shortness of breath. Cardiovascular: Negative for chest pain. Gastrointestinal: Positive for diarrhea ((resolved)). Musculoskeletal: Negative for myalgias. BP 122/78 Pulse 79 Temp 36.7 C (98.1 F) Resp 21 Wt 75.7 kg (166 lb 12.8 oz) SpO2 98% BMI 31.52 kg/m PAST MEDICAL HISTORY Diagnosis Date Corneal abrasion 08/13/2016 Os Diverticulosis of colon (without mention of hemorrhage) Essential hypertension, benign History of basal cell carcinoma 06/2016 left nasal sidewall Macular degeneration 2014 Personal history of colonic polyps Pure hypercholesterolemia Type II or unspecified type diabetes mellitus without mention of complication, not stated as uncontrolled PAST SURGICAL HISTORY Procedure Laterality Date COLONOSCOPY FLX DX W/COLLJ SPEC WHEN PFRMD 2002 Colonoscopy COLONOSCOPY FLX DX W/COLLJ SPEC WHEN PFRMD 10/28/08 PAST SURGICAL HISTORY OF ~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 traZODone (DESYREL) 50 mg tablet Take 0.5-1 tablets by mouth at bedtime as needed (sedation). amLODIPine (NORVASC) 5 mg tablet Take 1 tablet by mouth once daily. (Dr. Esparza) diphenhydrAMINE (BENADRYL) 25 mg tablet Take 1 tablet by mouth daily at bedtime. (purple sleep aid--OTC) losartan (COZAAR) 25 mg tablet Take 1 tablet by mouth once daily. (Dr. Esparza) potassium chloride SR (MICRO-K) 8 mEq cpER Take 2 capsules by mouth once daily. Cholecalciferol, Vitamin D3, 25 mcg (1,000 unit) cap Take 1 capsule by mouth once daily. atorvastatin (LIPITOR) 80 mg tablet Take 1 tablet by mouth once daily. Lactobacillus acidophilus (PROBIOTIC) 10 billion cell cap Take by mouth. hydrocortisone valerate (WESTCORT) 0.2 % cream Apply to active or flaring lichen planus area until clear . AVOID eyes and eyelids. furosemide (LASIX) 20 mg tablet Take 1 tablet by mouth once daily. apixaban (ELIQUIS) 5 mg tab(s) Take 1 tablet by mouth twice daily. sulfaSALAzine (AZULFIDINE) 500 mg tablet TAKE ONE TABLET BY MOUTH 3 TO 4 TIMES DAILY FOR LICHEN PLANUS, THEN TAPER BACK ON DOSE ABLE WHEN CONTROLLED DIRECTED Compression Knee Highs KNEE HIGH COMPRESSION STOCKINGS 30-40 MM. DX: EDEMA VIT C/E/ZN/COPPR/LUTEIN/ZEAXAN (PRESERVISION AREDS 2 ORAL) Take by mouth twice daily. blood sugar diagnostic (ONE TOUCH ULTRA TEST) Misc test strip Use as instructed Lancets (ONE TOUCH ULTRASOFT LANCETS) Misc lancets 1 Each once daily. Use as instructed benzonatate (TESSALON PERLE) 100 mg capsule Take 1 capsule by mouth three times daily as needed forup to 10 days. dicyclomine (BENTYL) 10 mg capsule Take 1 capsule by mouth twice daily. (Patient not taking: Reported on 03/02/2021 ) FAMILY HISTORY Problem Relation Age of Onset Diabetes Mother Heart Mother Hypertension Mother Diabetes Daughter Diabetes Daughter Diabetes Maternal Uncle Diabetes Maternal Uncle Diabetes Maternal Uncle Diabetes Maternal Uncle Macular Degen Other aunt Social History Tobacco Use Smoking status: Former Types: Cigarettes Quit date: 05/23/1956 Years since quittin.0 Smokeless tobacco: Never Substance Use Topics Alcohol use: No Drug use: No Objective Physical Exam Vitals and nursing note reviewed. Constitutional: General: She is not in acute distress. Appearance: Normal appearance. She is not toxic-appearing. HENT: Right Ear: Tympanic membrane, ear canal and external ear normal. Left Ear: Tympanic membrane, ear canal and external ear normal. Nose: Rhinorrhea present. Mouth/Throat: Mouth: Mucous membranes are moist. Pharynx: Uvula midline. Posterior oropharyngeal erythema present. No oropharyngeal exudate. Cardiovascular: Rate and Rhythm: Normal rate and regular rhythm. Heart sounds: Normal heart sounds. Pulmonary: Effort: Pulmonary effort is normal. No respiratory distress. Breath sounds: Normal breath sounds. No wheezing or rales. Musculoskeletal: Cervical back: Neck supple. Lymphadenopathy: Cervical: No cervical adenopathy. Skin: General: Skin is warm and dry. Findings: No erythema or rash. Neurological: Mental Status: She is alert. ASSESSMENT/PLAN: 1. Viral URI with cough - ICD9: 465.9, ICD10: J06.9 (primary diagnosis) - Discussed viral etiology and rationale for treatment. - Symptomatic treatment with prn analgesia - Supportive care with fluids and rest - BENZONATATE 100 MG CAPSULE 2. Laryngitis - ICD9: 464.00, ICD10: J04.0 - STREP A MOLECULAR (POC) - Follow-up with your PCP in 3-5 days if symptoms have not improved or sooner if symptoms worsen - Discussed red flags and need for immediate medical evaluation if any occur. - Discussed supportive care treatment with fluids, rest and analgesia. - Discussed expected course of illness Lyn Bernard APRN.IOS PROGRAMMER documented in this encounterMer[facility]10[facility]12-2022 History of Present illness Narrative* Vee Roque Population Health Navigator - 03/03/2022 1:18 PM EDT POPULATION HEALTH NAVIGATION OUTREACH Action/FYI Called patient to schedule annual wellness visit for May. Pt identified by name and : YES, via phone Outreach Outcome/Action Spoke to patient or caregiver: Patient will return the call or ask for return call. Patient is planning a vacation in May and will call back to schedule once she has dates set for her vacation. Did you use a PCP flex slot to schedule this appointment? N/A Reason for Outreach HCC or suspected condition Payer: Payor: [employer] / Plan: [employer] HMO / Product Type: HMO / Care Gap Reviewed:: Annual Wellness visit Flu vaccine Reminder: Reminder note to check Health Maintenance for items below Health Maintenance items due: COVID-19 VACCINE(1) Never done URINE ALBUMIN:CREATININE RATIO due on 01/02/2019 HBA1C due on 05/01/2021 ADVANCE DIRECTIVE DISCUSSION Never done DEPRESSION ASSESSMENT Never done LDL CHOLESTEROL due on 10/30/2021 INFLUENZA(1) due on 01/21/2022 Message Sent to Practice: No Vee Roque [facility] Navigator March 03, 2022 1:18 PM documented in this encounterMercy Health St[facility]06-13-2022 Miscellaneous Notes* Telephone Encounter - Jadyn Bowden MD - 11/02/2021 11:44 AM EDT Okayed * Telephone Encounter - Marcelina Stark LPN - 11/02/2021 9:05 AM EDT Patient has been identified by name and date of : Yes Patient phones for refill(s): Pending Prescriptions Disp Refills METOPROLOL TARTRATE 100 MG TABLET 180 tablet 1 Sig: Take 1 tablet by mouth twice daily. RHINA: No Date of last office visit in primary care: 10/13/2021, has appt 11/26/2021 Last 2 Encounter Wt Readings: Date: Wt: 10/13/2021 72.6 kg (160 lb) 05/26/2021 76.7 kg (169 lb 3.2 oz) Previous labs/tests for medication: Blood Pressure: BUN (mg/dL) Date Value 10/30/2020 18 Sodium (mmol/L) Date Value 10/30/2020 142 Last 1 Encounter BP Readings: Date: BP: 10/13/2021 160/88 Please advise. Thank you. Marcelina Stark LPN documented in this encounterMercy Health St. [facility]05-24-2022 Miscellaneous Notes* Telephone Encounter - Yumiko Rivera LPN - 10/13/2021 2:55 PM EDT No answer. Left providers message and ask to call with any question or concerns * Telephone Encounter - Jessie Hurt APRN.CNS - 10/13/2021 2:15 PM EDT Please let her know that x-ray shows some arthritis otherwise normal clavicles. documented in this encounterMercy Health [facility]. [facility]05-24-2022 History of Present illness Narrative* Juju Ohara RT(Rj) - 10/13/2021 8:45 AM EDT Radiology Service Progress Note PATIENT NAME: Tasha Sweet DATE OF SERVICE: October 13, 2021 TIME: 8:39 AM PATIENT IDENTITY VERIFICATION COMPLETED USING TWO (2) IDENTIFIERS: Name and Date of confirmedby patient verbally. FALL SCREENING: Has the patient had 2 falls in the last year or 1 fall with injury or currently using an Ambulatory Assistive Device (Walker, Cane, Wheelchair, Crutches, etc.)? No PATIENT GENDER DATA: Female. status: : No status: NO. PATIENT RELEVANT IMPLANT DATA REVIEWED: Yes RADIOLOGY DEPARTMENT: General X-ray: Exam(s) Completed: Upper Extremity X- Ray(s): Clavicle, bilateral PERIPHERAL IV DATA: Not applicable SIGNED BY: RT Kale(Rj) October 13, 2021 8:39 AM documented in this encounterMercy Health St. [facility]05-24-2022 History of Present illness Narrative* Jessie Hurt APRN.CNS - 10/13/2021 8:00 AM EDT Images from the original note were not included. SUBJECTIVE: PNEUMOCOCCAL: 65+(1 - PCV) Never done URINE ALBUMIN:CREATININE RATIO due on 01/02/2019 HBA1C due on 05/01/2021 ADVANCE DIRECTIVE DISCUSSION Never done LDL CHOLESTEROL due on 10/30/2021 HPI Tasha Sweet is a 86 year old female. 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 Not painful. Seems more prominent than before. Just recently noted. No change in size. No pain. Has had recent 15 lb weight loss dueto decreased appetite. She notes ongoing difficulties since her from [facility] in March. They were for 69 years. Is having trouble with sleep. Difficult to sleep in her own bedroom, often sleeping in a recliner did find trazodone helpful when taking. Review of Systems Constitutional: Negative. Psychiatric/Behavioral: Positive for sleep disturbance. Objective BP 160/88 Pulse 72 Resp 16 Wt 72.6 kg (160 lb) BMI 30.23 kg/m Physical Exam Vitals and nursing note reviewed. Constitutional: Appearance: Normal appearance. HENT: Head: Normocephalic and atraumatic. Eyes: Conjunctiva/sclera: Conjunctivae normal. Cardiovascular: Rate and Rhythm: Normal rate. Pulmonary: Effort: Pulmonary effort is normal. Musculoskeletal: Arms: Comments: palpable bilateral clavicle and sternum, no mass appreciated on palpation Skin: General: Skin is warm and dry. Neurological: General: No focal deficit present. Mental Status: She is alert and oriented to person, place, and time. ALLERGIES Allergen Reactions Codeine Vomiting Lisinopril Cough MEDICATIONS traZODone (DESYREL) 50 mg tablet, Take 0.5-1 tablets by mouth at bedtime as needed (sedation). amLODIPine (NORVASC) 5 mg tablet, Take 1 tablet by mouth once daily. (Dr. Esparza) diphenhydrAMINE (BENADRYL) 25 mg tablet, Take 1 tablet by mouth daily at bedtime. (purple sleep aid--OTC) losartan (COZAAR) 25 mg tablet, Take 1 tablet by mouth once daily. (Dr. Esparza) potassium chloride SR (MICRO-K) 8 mEq cpER, Take 2 capsules by mouth once daily. Cholecalciferol, Vitamin D3, 25 mcg (1,000 unit) cap, Take 1 capsule by mouth once daily. metoprolol tartrate, short acting, (LOPRESSOR) 100 mg tablet, Take 1 tablet by mouth twice daily. atorvastatin (LIPITOR) 80 mg tablet, Take 1 tablet by mouth once daily. Lactobacillus acidophilus (PROBIOTIC) 10 billion cell cap, Take by mouth. hydrocortisone valerate (WESTCORT) 0.2 % cream, Apply to active or flaring lichen planus area untilclear . AVOID eyes and eyelids. furosemide (LASIX) 20 mg tablet, Take 1 tablet by mouth once daily. apixaban (ELIQUIS) 5 mg tab(s), Take 1 tablet by mouth twice daily. sulfaSALAzine (AZULFIDINE) 500 mg tablet, TAKE ONE TABLET BY MOUTH 3 TO 4 TIMES DAILY FOR LICHEN PLANUS, THEN TAPER BACK ON DOSE ABLE WHEN CONTROLLED DIRECTED Compression Knee Highs, KNEE HIGH COMPRESSION STOCKINGS 30-40 MM. DX: EDEMA VIT C/E/ZN/COPPR/LUTEIN/ZEAXAN (PRESERVISION AREDS 2 ORAL), Take by mouth twice daily. blood sugar diagnostic (ONE TOUCH ULTRA TEST) Misc test strip, Use as instructed Lancets (ONE TOUCH ULTRASOFT LANCETS) Misc lancets, 1 Each once daily. Use as instructed dicyclomine (BENTYL) 10 mg capsule, Take 1 capsule by mouth twice daily. ammonium lactate (LAC-HYDRIN) 12 % cream, Apply to affected areas of feet daily after bathing PAST MEDICAL HISTORY Diagnosis Date Corneal abrasion 08/13/2016 Os Diverticulosis of colon (without mention of hemorrhage) Essential hypertension, benign History of basal cell carcinoma 06/2016 left nasal sidewall Macular degeneration 2014 Personal history of colonic polyps Pure hypercholesterolemia Type II or unspecified type diabetes mellitus without mention of complication, not stated as uncontrolled Social History Tobacco Use Smoking status: Former Smoker Quit date: 05/23/1956 Years since quittin.4 Smokeless tobacco: Never Used Substance Use Topics Alcohol use: No Drug use: No ASSESSMENT/PLAN: 1. Abnormal prominence of clavicle - ICD9: 755.51, ICD10: Q74.0 (primary diagnosis) No palpable mass however perceived alteration /abnormality in clavicles and sternal junction so we will complete XR. Has had 15 lb wt loss recently so may be more prominent than previous - XR CLAVICLE 2V LEFT - XR CLAVICLE 2V RIGHT 2. Adjustment insomnia - ICD9: 307.41, ICD10: F51.02 Continue with trazodone as needed for sleep. Consider grief counseling if needed. - TRAZODONE 50 MG TABLET Jessie Hurt APRN.CNS Medical Decision Making: Problems: Minimal: Self-limited or minor problem Moderate: 1+ chronic illnesses with change Data: Unique test(s) ordered: 1 Risk: Moderate: Drug management Medical Decision Making Level: 4 - Moderate documented in this encounterMercy Health St. [facility]06-10-2021 History of Present illness Narrative* Juju Ohara RT(R) - 10/30/2020 12:50 PM EDT Radiology Service Progress Note PATIENT NAME: Tasha Sweet DATE OF SERVICE: October 30, 2020 TIME: 12:49 PM PATIENT IDENTITY VERIFICATION COMPLETED USING TWO (2) IDENTIFIERS: Name and Date of confirmedby patient verbally. FALL SCREENING: Has the patient had 2 falls in the last year or 1 fall with injury or currently using an Ambulatory Assistive Device (Walker, Cane, Wheelchair, Crutches, etc.)? No PATIENT GENDER DATA: Female. status: : No status: NO. PATIENT RELEVANT IMPLANT DATA REVIEWED: Yes RADIOLOGY DEPARTMENT: General X-ray: Exam(s) Completed: Lower Extremity X- Ray(s): Foot, Left PERIPHERAL IV DATA: Not applicable SIGNED BY: RT Kale(Rj) October 30, 2020 12:49 PM documented in this encounterMercy Health St. [facility]05-15-2020 History of Past illness Narrative* Problem Noted Date Diagnosed Date Resolved Date 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 01/18/2023 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 Obesity, Class I, BMI 30-34.9 12/28/2016 04/05/2018 documented as of this encounter (statuses as of 07/14/2023) [address]08-2017 History of Past illness Narrative* Problem Noted Date Resolved Date Obesity, Class I, BMI 30-34.9 12/28/2016 documented as of this encounter (statuses as of 10/13/2021) [address]08-2017 History of Past illness Narrative* Problem Noted Date Resolved Date Obesity, Class I, BMI 30-34.9 12/28/2016 documented as of this encounter (statuses as of 10/13/2021) [address]08-2017 History of Past illness Narrative* Problem Noted Date Resolved Date Obesity, Class I, BMI 30-34.9 12/28/2016 documented as of this encounter (statuses as of 11/02/2021) [address]08-2017 History of Past illness Narrative* Problem Noted Date Resolved Date Obesity, Class I, BMI 30-34.9 12/28/2016 documented as of this encounter (statuses as of 03/03/2022) [address]-2017 History of Past illness Narrative* Problem Noted Date Resolved Date Obesity, Class I, BMI 30-34.9 12/28/2016 documented as of this encounter (statuses as of 05/28/2022) [address]-2017 History of Past illness Narrative* Problem Noted Date Resolved Date Obesity, Class I, BMI 30-34.9 12/28/2016 documented as of this encounter (statuses as of 06/03/2022) [address]-2017 History of Past illness Narrative* Problem Noted Date Resolved Date Obesity, Class I, BMI 30-34.9 12/28/2016 documented as of this encounter (statuses as of 06/07/2022) [address]-2017 History of Past illness Narrative* Problem Noted Date Resolved Date Obesity, Class I, BMI 30-34.9 12/28/2016 documented as of this encounter (statuses as of 06/08/2022) [facility] of Past illness Narrative* Problem Noted Date Resolved Date Obesity, Class I, BMI 30-34.9 12/28/2016 documented as of this encounter (statuses as of 06/11/2022) [facility] note* Diagnosis Abnormal prominence of clavicle- Primary Adjustment insomnia Transient disorder of initiating or maintaining sleep [facility] Diagnosis BENIGN HYPERTENSION Essential hypertension, benign [facility]* Diagnosis Onset Date Resolution Status History of coronary artery disease acute Intermittent chest pain acut e PAF (paroxysmal atrial fibrillation) [facility] Work Phone: Evaluation note* Diagnosis Viral URI with cough- Primary Acute upper respiratory infections of unspecified site Laryngitis Acute laryngitis, without mention of obstruction [facility]* Diagnosis Acute cough- Primary Mixed hyperlipidemia Controlled type 2 diabetes mellitus without complication, without long-term current use of insulin ([facility]) Viral URI with cough Acute upper respiratory infections of unspecified site Shortness of breath documented [facility] this [facility]* Diagnosis Acute cough- Primary documented [facility] this [facility]* Diagnosis Controlled type 2 diabetes mellitus without complication, without long-term current use of insulin (HCC)- Primary [facility]* Diagnosis Lower abdominal pain- Primary Abdominal pain, other specified site Dysuria Lichen planus UTI symptoms Other symptoms involving urinary system documented [facility] this [facility]* Diagnosis Lichen planus documented [facility] campus note* Diagnosis COELLO (dyspnea on exertion) Other dyspnea and respiratory abnormality Abnormal CXR Other nonspecific abnormal finding of lung field [facility] [place] [facility] Diagnosis Microalbuminuria- Primary Proteinuria documented [facility] [place] [facility]* Diagnosis Medicare annual wellness visit, subsequent- Primary Routine general medical examination at a health care facility Controlled type 2 diabetes mellitus without complication, without long-term current use of insulin (HCC) Lesion of skin of face Unspecified disorder of skin and subcutaneous tissue Skin lesion of chest wall Unspecified disorder of skin and subcutaneous tissue History of basal cell carcinoma (BCC) excision COELLO (dyspnea on exertion) Other dyspnea and respiratory abnormality BENIGN HYPERTENSION Essential hypertension, benign Mixed hyperlipidemia Renal infarct (HCC) Vascular disorders of kidney 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 Vitamin D deficiency Unspecified vitamin D deficiency Abnormal CXR Other nonspecific abnormal finding of lung field Encounter for screening examination for other mental health and behavioral disorders Screening for depression COELLO (dyspnea on exertion) Other dyspnea and respiratory abnormality Abnormal CXR Other nonspecific abnormal finding of lung field COELLO (dyspnea on exertion) Other dyspnea and respiratory abnormality Abnormal CXR Other nonspecific abnormal finding of lung field COELLO (dyspnea on exertion) Other dyspnea and respiratory abnormality Abnormal CXR Other nonspecific abnormal finding of lung field [facility] Diagnosis Acute cough Shortness of breath [facility] Diagnosis Abnormal prominence of clavicle [facility] Diagnosis Injury of left foot, initial encounter [facility] Diagnosis Dysuria- Primary [facility] Diagnosis Controlled type 2 diabetes mellitus without complication, without long-term current use of insulin ([facility])- Primary Microalbuminuria Proteinuria Mixed hyperlipidemia S/P coronary artery stent placement Postsurgical percutaneous transluminal coronary angioplasty status Primary hypertension Unspecified essential hypertension PAF (paroxysmal atrial fibrillation) ([facility]) Atrial fibrillation Vitamin D deficiency Unspecified vitamin D deficiency Encounter for immunization Need for other specified prophylactic vaccination against single bacterial disease Lichen planus [facility] Diagnosis UTI symptoms- Primary Other symptoms involving urinary system documented [facility] Diagnosis UTI symptoms- Primary Other symptoms involving urinary system Positional lightheadedness Dizziness and giddiness documented [facility] Diagnosis Recurrent UTI- Primary Urinary tract infection, site not specified UTI symptoms Other symptoms involving urinary system Macular degeneration, unspecified laterality, unspecified type Self-care deficit documented [facility] [place] [facility]* Diagnosis Onset Date Resolution Status Admit Date Epistaxis acute December 28 10:31am Aortic valve stenosis chronic Aug ust 2024 10:31am Coronary artery disease chronic A ugust 2024 10:31am Essential hypertension chronic Au marlene 2024 10:31am PAF (paroxysmal atrial fibrillation) chronic December 28, 2024 10:31am Presence of stent in coronar y artery May, chronic December 28, 2024 10:31am Pulmonary hypertension chronic Au 2024 10:31am Pure hypercholesterolemia chronic December 28, 2024 10:31am [employer] Work Phone: [facility] for referral (narrative)* Diagnostic Procedure Only (Routine) - Closed Specialty Diagnoses / Procedures Referred By Contac t Referred To Contact XR IMAGING Diagnoses Abnormal prominence of clavicle Procedures XR CLAVICLE 2V RIGHT RADEX CLAVICLE COMPLETE Jessie Hurt APRN.COMPUTER LANGUAGE CODER [address] [place] [address] Xr Imaging Referral ID Status Reason Start Date Expiration Date V isits Requested Visits Authorized [id number] Closed Auto-Generate d Referral 10/13/2021 11/12/2022 1 1 * Diagnostic Procedure Only (Routine) - Closed Specialty Diagnoses / Procedures Referred By Contac t Referred To Contact XR IMAGING Diagnoses Abnormal prominence of clavicle Procedures XR CLAVICLE 2V LEFT RADEX CLAVICLE COMPLETE Jessie Hurt APRN.COMPUTER LANGUAGE CODER [address] [place] [address] Xr Imaging Referral ID Status Reason Start Date Expiration Date V isits Requested Visits Authorized [id number] Closed Auto-Generate d Referral 10/13/2021 11/12/2022 1 1 [facility] for referral (narrative)* Outpatient Procedure (Routine) - Closed Specialty Diagnoses / Procedures Referred By Contac t Referred To Contact [facility] Diagnoses COELLO (dyspnea on exertion) Abnormal CXR Procedures LUNG DIFFUSION CAPACITY (DLCO) DIFFUSING CAPACITY Jadyn Bowden MD [address] [place] [address] [facility] [address] [place] [address] Referral ID Status Reason Start Date Expiration Date V isits Requested Visits Authorized [id number] Closed Auto-Generate d Referral 12/14/2023 01/12/2025 1 1 * Outpatient Procedure (Routine) - Closed Specialty Diagnoses / Procedures Referred By Ruth t Referred To Contact [facility] Diagnoses COELLO (dyspnea on exertion) Abnormal CXR Procedures LUNG VOLUMES PLETHYSMOGRAPHY LUNG VOLUMES W/WO AIRWAY RESIST Jadyn Bowden MD [address] [place] [address] [facility] [address] [place] [id number] Referral ID Status Reason Start Date Expiration Date V isits Requested Visits Authorized [id number] Closed Auto-Generate d Referral 12/15/2023 05/22/2024 1 1 * Outpatient Procedure (Routine) - Closed Specialty Diagnoses / Procedures Referred By Ruth bird Referred To Contact [facility] Diagnoses COELLO (dyspnea on exertion) Abnormal CXR Procedures SPIROMETRY - BASELINE AND POST DILATOR BRNCDILAT RSPSE SPMTRY PRE&POST-BRNCDILAT ADMN Jadyn Bowden MD [address] [place] [address] [facility] [address] [place] [id number] Referral ID Status Reason Start Date Expiration Date V isits Requested Visits Authorized [id number] Closed Auto-Generate d Referral 12/14/2023 01/12/2025 1 1 * Transition of Care (Routine) - Ref Not Required Specialty Diagnoses / Procedures Referred By Ruth t Referred To Contact Dermatology Diagnoses Lesion of skin of face Skin lesion of chest wall History of basal cell carcinoma (BCC) excision Procedures CONSULT TO DERMATOLOGY Jadyn Bowden MD [address] [place] [address] Referral ID Status Reason Start Date Expiration Date Visits Requested Visits Authorized [id number] Ref Not Required PCP Requested Referral 12/14/2023 12/13/2024 [address] [facility] [address] Diagnostic Procedure Only (Routine) - Closed Specialty Diagnoses / Procedures Referred By Contac t Referred To Contact XR IMAGING Diagnoses Abnormal prominence of clavicle Procedures XR CLAVICLE 2V RIGHT RADEX CLAVICLE COMPLETE Jessie Hurt APRN.COMPUTER LANGUAGE CODER [address] [place] [address] [place] [address] Referral ID Status Reason Start Date Expiration Date V isits Requested Visits Authorized [id number] Closed Auto-Generate d Referral 10/13/2021 11/12/2022 1 1 * Diagnostic Procedure Only (Routine) - Closed Specialty Diagnoses / Procedures Referred By Ruth t Referred To Contact XR IMAGING Diagnoses Abnormal prominence of clavicle Procedures XR CLAVICLE 2V LEFT RADEX CLAVICLE COMPLETE Jessie Hurt APRN.COMPUTER LANGUAGE CODER [address] [place] [address] [place] [address] Referral ID Status Reason Start Date Expiration Date V isits Requested Visits Authorized [id number] Closed Auto-Generate d Referral 10/13/2021 11/12/2022 [address] [address] (narrative)No reason for referral information availableWMain Campus [facility] Work Phone: Reason for visit Narrative* Diagnostic Procedure Only (Routine) - Closed Specialty Diagnoses / Procedures Referred By Contac t Referred To Contact XR IMAGING Diagnoses Abnormal prominence of clavicle Procedures XR CLAVICLE 2V RIGHT RADEX CLAVICLE COMPLETE Jessie Hurt APRN.COMPUTER LANGUAGE CODER [address] [place] [address] [place] [address] Referral ID Status Reason Start Date Expiration Date V isits Requested Visits Authorized [id number] Closed Auto-Generate d Referral 10/13/2021 11/12/2022 [address] [facility] Summary Purpose Family History No Family History Records Found Relationship Condition Age at Onset Recorded Date/T manuel mother Hypertension Unknown Cardiac disease Unknown Diabetes mellitus Unknown father Diabetes mellitus Unknown Hypertension Unknown sister Hypertension Unknown sister Diabetes mellitus Unknown Advance Directives No Advanced Directives Records Found Advance Directive Response Recorded Date/ Time Advance Directives Yes June 20, 2015 2:11am Living Will Yes November 27, 2021 1 2:10am Power of Machinery Cleaner Yes November 27, 2021 12:10am Name of Medical Power of Machinery Cleaner Nancy JAIMES November 27, 2021 12:10am Advance Directive Response Recorded Date/ Time Advance Directives Yes June 20, 2015 2:11am Chief Complaint and Reason for Visit Chief Complaint chest pain Reason for Visit History of coronary artery disease Intermittent chest pain PAF (paroxysmal atrial fibrillation) Chief Complaint Admit Date 6 M FU August 06, 2024 1:2 0pm INT LAB ORDERS August 06, 2024 2:2 2pm Reason for Visit Admit Date Aortic valve stenosis August 06, 2024 1 :20pm Coronary artery disease August 06, 2024 1:20pm Essential hypertension August 06, 2024 1:20pm PAF (paroxysmal atrial fibrillation) [facility] 2024 1:20pm Presence of stent in coronary artery [facility] 2024 1:20pm Pulmonary hypertension August 06, 2024 1:20pm Pure hypercholesterolemia August 06 1:20pm Chief Complaint Admit Date Epitaxis December 28, 2024 10: 31am Reason for Visit Admit Date Epistaxis December 28, 2024 10: 31am Aortic valve stenosis December 28, 2024 1 0:31am Coronary artery disease December 28, 2024 10:31am Essential hypertension December 28, 2024 10:31am PAF (paroxysmal atrial fibrillation) [facility]2024 10:31am Presence of stent in coronary artery [facility]2024 10:31am Pulmonary hypertension December 28, 2024 10:31am Pure hypercholesterolemia December 28 10:31am Chief Complaint Admit Date Epitaxis December 28, 2024 10: 31am E ORDERS December 28, 2024 11: 19am Reason for Visit Admit Date Blood in stool December 28, 2024 10: 31am Epistaxis December 28, 2024 10: 31am Aortic valve stenosis December 28, 2024 1 0:31am Coronary artery disease December 28, 2024 10:31am Essential hypertension December 28, 2024 10:31am PAF (paroxysmal atrial fibrillation) Dec 10:31am Presence of stent in coronary artery Dec 2024 10:31am Pulmonary hypertension December 28, 2024 10:31am Pure hypercholesterolemia December 28 10:31am Additional Source Comments INFORMATION SOURCE (unrecogn ized section and content) DATE CREATED AUTHOR 11/09/2017 [facility] DATE CREATED AUTHOR AUTHOR'S ORGANIZ ATION 11/15/2017 [facility] DATE CREATED AUTHOR AUTHOR'S ORGANIZ ATION 12/12/2024 [facility] DATE CREATED AUTHOR AUTHOR'S ORGANIZ ATION 01/05/2025 [facility] Source Comments (unrecognize d section and content) In the event this informatio n is protected by the Federal Confidentiality of Alcohol and Drug Abuse Patient Records regulations: The Federal rules restrict any use of the information to criminally investigate or prosecute any alcohol or drug abuse patient.[facility] the event this information is protected by the Federal Confidentiality of Alcohol and Drug Abuse Patient Records regulations: The Federal rules restrict any use of the information to criminally investigate or prosecute any alcohol or drug abuse patient.[facility] CenterIn the event this information is protected by the Federal Confidentiality of Alcohol and Drug Abuse Patient Records regulations: The Federal rules restrict any use of the information to criminally investigate or prosecute any alcohol or drug abuse patient.[facility] Center[facility] the event this information is protected by the Federal Confidentiality of Alcohol and Drug Abuse Patient Records regulations: The Federal rules restrict any use of the information to criminally investigate or prosecute any alcohol or drug abuse patient.[facility] CenterIn the event this information is protected by the Federal Confidentiality of Alcohol and Drug Abuse Patient Records regulations: The Federal rules restrict any use of the information to criminally investigate or prosecute any alcohol or drug abuse patient.[facility] CenterIn the event this information is protected by the Federal Confidentiality of Alcohol and Drug Abuse Patient Records regulations: The Federal rules restrict any use of the information to criminally investigate or prosecute any alcohol or drug abuse patient.[facility] CenterIn the event this information is protected by the Federal Confidentiality of Alcohol and Drug Abuse Patient Records regulations: The Federal rules restrict any use of the information to criminally investigate or prosecute any alcohol or drug abuse patient.[facility] CenterIn the event this information is protected by the Federal Confidentiality of Alcohol and Drug Abuse Patient Records regulations: The Federal rules restrict any use of the information to criminally investigate or prosecute any alcohol or drug abuse patient.[facility] CenterIn the event this information is protected by the Federal Confidentiality of Alcohol and Drug Abuse Patient Records regulations: The Federal rules restrict any use of the information to criminally investigate or prosecute any alcohol or drug abuse patient.[facility] CenterIn the event this information is protected by the Federal Confidentiality of Alcohol and Drug Abuse Patient Records regulations: The Federal rules restrict any use of the information to criminally investigate or prosecute any alcohol or drug abuse patient.[facility] CenterIn the event this information is protected by the Federal Confidentiality of Alcohol and Drug Abuse Patient Records regulations: The Federal rules restrict any use of the information to criminally investigate or prosecute any alcohol or drug abuse patient.[facility] CenterIn the event this information is protected by the Federal Confidentiality of Alcohol and Drug Abuse Patient Records regulations: The Federal rules restrict any use of the information to criminally investigate or prosecute any alcohol or drug abuse patient.[facility] CenterIn the event this information is protected by the Federal Confidentiality of Alcohol and Drug Abuse Patient Records regulations: The Federal rules restrict any use of the information to criminally investigate or prosecute any alcohol or drug abuse patient.[facility] CenterIn the event this information is protected by the Federal Confidentiality of Alcohol and Drug Abuse Patient Records regulations: The Federal rules restrict any use of the information to criminally investigate or prosecute any alcohol or drug abuse patient.[facility] CenterIn the event this information is protected by the Federal Confidentiality of Alcohol and Drug Abuse Patient Records regulations: The Federal rules restrict any use of the information to criminally investigate or prosecute any alcohol or drug abuse patient.[facility] CenterIn the event this information is protected by the Federal Confidentiality of Alcohol and Drug Abuse Patient Records regulations: The Federal rules restrict any use of the information to criminally investigate or prosecute any alcohol or drug abuse patient.[facility] CenterIn the event this information is protected by the Federal Confidentiality of Alcohol and Drug Abuse Patient Records regulations: The Federal rules restrict any use of the information to criminally investigate or prosecute any alcohol or drug abuse patient.[facility] CenterIn the event this information is protected by the Federal Confidentiality of Alcohol and Drug Abuse Patient Records regulations: The Federal rules restrict any use of the information to criminally investigate or prosecute any alcohol or drug abuse patient.[facility] CenterIn the event this information is protected by the Federal Confidentiality of Alcohol and Drug Abuse Patient Records regulations: The Federal rules restrict any use of the information to criminally investigate or prosecute any alcohol or drug abuse patient.[facility] CenterIn the event this information is protected by the Federal Confidentiality of Alcohol and Drug Abuse Patient Records regulations: The Federal rules restrict any use of the information to criminally investigate or prosecute any alcohol or drug abuse patient.[facility] CenterIn the event this information is protected by the Federal Confidentiality of Alcohol and Drug Abuse Patient Records regulations: The Federal rules restrict any use of the information to criminally investigate or prosecute any alcohol or drug abuse patient.[facility] CenterIn the event this information is protected by the Federal Confidentiality of Alcohol and Drug Abuse Patient Records regulations: The Federal rules restrict any use of the information to criminally investigate or prosecute any alcohol or drug abuse patient.[facility] CenterIn the event this information is protected by the Federal Confidentiality of Alcohol and Drug Abuse Patient Records regulations: The Federal rules restrict any use of the information to criminally investigate or prosecute any alcohol or drug abuse patient.[facility] CenterIn the event this information is protected by the Federal Confidentiality of Alcohol and Drug Abuse Patient Records regulations: The Federal rules restrict any use of the information to criminally investigate or prosecute any alcohol or drug abuse patient.[facility] CenterIn the event this information is protected by the Federal Confidentiality of Alcohol and Drug Abuse Patient Records regulations: The Federal rules restrict any use of the information to criminally investigate or prosecute any alcohol or drug abuse patient.[facility] CenterIn the event this information is protected by the Federal Confidentiality of Alcohol and Drug Abuse Patient Records regulations: The Federal rules restrict any use of the information to criminally investigate or prosecute any alcohol or drug abuse patient.[facility] CenterIn the event this information is protected by the Federal Confidentiality of Alcohol and Drug Abuse Patient Records regulations: The Federal rules restrict any use of the information to criminally investigate or prosecute any alcohol or drug abuse patient.[facility] CenterIn the event this information is protected by the Federal Confidentiality of Alcohol and Drug Abuse Patient Records regulations: The Federal rules restrict any use of the information to criminally investigate or prosecute any alcohol or drug abuse patient.[facility] CenterIn the event this information is protected by the Federal Confidentiality of Alcohol and Drug Abuse Patient Records regulations: The Federal rules restrict any use of the information to criminally investigate or prosecute any alcohol or drug abuse patient.[facility] CenterIn the event this information is protected by the Federal Confidentiality of Alcohol and Drug Abuse Patient Records regulations: The Federal rules restrict any use of the information to criminally investigate or prosecute any alcohol or drug abuse patient.[facility] Reason for Visit (unrecogniz ed section and content) Reason Comments Lump Reason Comments Xray Results Reason Onset Date Comments Refill Request 11/02/2021 Reason Onset Date Comments Population Health Navigation Outreach 03/03/2022 HCC Reason Comments Cough Chest congestion, ru nny nose x 2 days Reason Comments URI Reason Comments Follow Up Reason Comments Results CXR Reason Comments Results Reason Onset Date Comments [facility] Outreach 07/14/2023 Med adherence Reason Comments uti symptoms Reason Comments Pharmacy Call Reason Comments Spirometry Specialty Diagnoses / Procedures Referred By Contac t Referred To Contact [facility] [place] Diagnoses COELLO (dyspnea on exertion) Abnormal CXR Procedures LUNG DIFFUSION CAPACITY (DLCO) DIFFUSING CAPACITY Jadyn Bowden MD [address] [place] [address] [place] [address] Referral ID Status Reason Start Date Expiration Date V isits Requested Visits Authorized [id number] Closed Auto-Generate d Referral 12/14/2023 01/12/2025 1 1 Specialty Diagnoses / Procedures Referred By Contac t Referred To [facility] [place] Diagnoses COELLO (dyspnea on exertion) Abnormal CXR Procedures SPIROMETRY - BASELINE AND POST DILATOR BRNCDILAT RSPSE SPMTRY PRE&POST-BRNCDILAT ADMN Jadyn Bowden MD [address] [place] [address] [facility] [place] [address] [address] Referral ID Status Reason Start Date Expiration Date V isits Requested Visits Authorized [id number] Closed Auto-Generate d Referral 12/14/2023 01/12/2025 1 1 Specialty Diagnoses / Procedures Referred By Contac t Referred To [facility] [place] Diagnoses COELLO (dyspnea on exertion) Abnormal CXR Procedures LUNG VOLUMES PLETHYSMOGRAPHY LUNG VOLUMES W/WO AIRWAY RESIST Jadyn Bowden MD [address] [place] [address] [facility] [place] [address] Referral ID Status Reason Start Date Expiration Date V isits Requested Visits Authorized [id number] Closed Auto-Generate d Referral 12/15/2023 05/22/2024 1 1 Reason Comments results of labs and lung studies Reason Comments Medicare Wellness Exam Reason Comments Urinary Frequency with dysuria and pre ssurepain in lower pelvic area Reason Comments F/U 6 Month Reason Comments Results UTI Reason Comments UTI Reason Comments uti symptoms Care Teams (unrecognized sec tion and content) Extension Course Coordinator Relationship Specialty Start Date End Date Jadyn Bowden MD [address] [place] [phone] PCP - General Internal Medicine 05/26/21 Extension Course Coordinator Relationship Specialty Start Date End Date Jadyn Bowden MD [address] [place] [address] PCP - General Internal Medicine 05/26/21 Extension Course Coordinator Relationship Specialty Start Date End Date Jadyn Bowden MD [address] [place] [address] PCP - General Internal Medicine 05/26/21 Extension Course Coordinator Relationship Specialty Start Date End Date Jadyn Bowden MD [address] [place] [address] PCP - General Internal Medicine 05/26/21 Extension Course Coordinator Relationship Specialty Start Date End Date Jadyn Bowden MD [address] [place] [address] [id number] PCP - General Internal Medicine 05/26/21 Extension Course Coordinator Relationship Specialty Start Date End Date Jadyn Bowden MD [address] [place] [id number] PCP - General Internal Medicine 05/26/21 Extension Course Coordinator Relationship Specialty Start Date End Date Jadyn Bowden MD [address] [place] [address] [id number] PCP - General Internal Medicine 05/26/21 Extension Course Coordinator Relationship Specialty Start Date End Date Jadyn Bowden MD [address] [facility] [place] [address] PCP - General Internal Medicine 05/26/21 Extension Course Coordinator Relationship Specialty Start Date End Date Jadyn Bowden MD [address] [facility] [address] PCP - General Internal Medicine 05/26/21 Extension Course Coordinator Relationship Specialty Start Date End Date Jadyn Bowden MD [address] [facility] [address] PCP - General Internal Medicine 05/26/21 Extension Course Coordinator Relationship Specialty Start Date End Date Jadyn Bowden MD [address] [facility] [address] PCP - General Internal Medicine 05/26/21 Extension Course Coordinator Relationship Specialty Start Date End Date Jadyn Bowden MD [address] [facility] [address] PCP - General Internal Medicine 05/26/21 Extension Course Coordinator Relationship Specialty Start Date End Date Jadyn Bowden MD [address] [facility] [address] PCP - General Internal Medicine 05/26/21 Extension Course Coordinator Relationship Specialty Start Date End Date Jadyn Bowden MD [address] [facility] [address] PCP - General Internal Medicine 05/26/21 Extension Course Coordinator Relationship Specialty Start Date End Date Jadyn Bowden MD [address] [facility] [address] PCP - General Internal Medicine 05/26/21 Extension Course Coordinator Relationship Specialty Start Date End Date Whitney Quarles MD [address] [facility] [address] PCP - General Internal Medicine 10/20/17 05/25/21 Extension Course Coordinator Relationship Specialty Start Date End Date Jadyn Bowden MD [address] [facility] [address] PCP - General Internal Medicine 05/26/21 Jessie Hurt, TIMING INSPECTOR.COMPUTER LANGUAGE CODER [address] [facility] [place] [address] Nuclear Reactor Engineer Internal Medicine 04/30/24 Corine Block TIMING INSPECTOR.IOS PROGRAMMER [address] [facility] [place] [address] Nuclear Reactor Engineer Internal Medicine 04/30/24 Extension Course Coordinator Relationship Specialty Start Date End Date Jadyn Bowden MD [address] [facility] [place] [address] PCP - General Internal Medicine 05/26/21 Jessie Hurt, TIMING INSPECTOR.COMPUTER LANGUAGE CODER [address] [facility] [address] Nuclear Reactor Engineer Internal Medicine 04/30/24 Corine Block TIMING INSPECTOR.IOS PROGRAMMER [address] [facility] [place] [address] Nuclear Reactor Engineer Internal Medicine 04/30/24 Extension Course Coordinator Relationship Specialty Start Date End Date Jadyn Bowden MD [address] [facility] [place], [place] [address] PCP - General Internal Medicine 05/26/21 Jessie Hurt, TIMING INSPECTOR.COMPUTER LANGUAGE CODER [address] [facility] [place], [place] [address] Nuclear Reactor Engineer Internal Medicine 04/30/24 Corine Block, TIMING INSPECTOR.IOS PROGRAMMER [address] [facility] [place], [place] [id number] Nuclear Reactor Engineer Internal Medicine 04/30/24 Team Status: Active Member Role Status Dates Dr. Whitney Quarles MD Family Provider Active Dr. Jadyn Bowden MD Primary Care Provider Active Team Status: Inactive Member Role Status Dates Dr. Jadyn Bowden MD Primary Care Provider Active Start: August 06, 2024 End: August 06, 2024 Dr. Jadyn Bowden MD Referring Provider Active Start: August 06, 2024 End: August 06, 2024 Dr. Rick Bermudez MD Attending Provider Active Start: August 06, 2024 End: August 06, 2024 Team Status: Inactive Member Role Status Dates Dr. Jadyn Bowden MD Primary Care Provider Active Start: August 06, 2024 End: August 06, 2024 Dr. Rick Bermudez MD Attending Provider Active Start: August 06, 2024 End: August 06, 2024 Dr. Rick Bermudez MD Referring Provider Active Start: August 06, 2024 End: August 06, 2024 Extension Course Coordinator Relationship Specialty Start Date End Date Jadyn Bowden MD [address] [facility] [place], [place] [address] PCP - General Internal Medicine 05/26/21 Jessie Hurt, TIMING INSPECTOR.COMPUTER LANGUAGE CODER [address] [facility] [place] [id number] Nuclear Reactor Engineer Internal Medicine 04/30/24 Corine Block APRN.IOS PROGRAMMER [address] [facility] [place] [address] [facility] Internal Medicine 08/14/24 Extension Course Coordinator Relationship Specialty Start Date End Date Jadyn Bowden MD [address] [facility] [address] PCP - General Internal Medicine 05/26/21 Jessie Hurt, TIMING INSPECTOR.COMPUTER LANGUAGE CODER [address] [place] [address] Nuclear Reactor Engineer Internal Medicine 04/30/24 Corine Block TIMING INSPECTOR.IOS PROGRAMMER [address] [facility] [address] [facility] Internal Medicine 08/14/24 Extension Course Coordinator Relationship Specialty Start Date End Date Jadyn Bowden MD [address] [facility] [address] PCP - General Internal Medicine 05/26/21 Corine Block TIMING INSPECTOR.IOS PROGRAMMER [address] [facility] [address] Nuclear Reactor Engineer Internal Medicine 08/14/24 Jessie Hurt, TIMING INSPECTOR.COMPUTER LANGUAGE CODER [address] [facility] [address] [facility] Internal Medicine 10/10/24 Extension Course Coordinator Relationship Specialty Start Date End Date Jadyn Bowden MD [address] [facility] [address] PCP - General Internal Medicine 05/26/21 Corine Block APRN.IOS PROGRAMMER [address] [facility] [address] Nuclear Reactor Engineer Internal Medicine 08/14/24 Jessie Hurt APRN.COMPUTER LANGUAGE CODER [address] [facility] [address] [facility] Internal Medicine 10/10/24 Extension Course Coordinator Relationship Specialty Start Date End Date Jadyn Bowden MD [address] [facility] [address] PCP - General Internal Medicine 05/26/21 Jessie Hurt APRN.COMPUTER LANGUAGE CODER [address] [facility] [address] Nuclear Reactor Engineer Internal Medicine 04/30/24 10/09/24 Corine Block APRN.IOS PROGRAMMER [address] [facility] [address] [facility] Internal Medicine 08/14/24 Jessie Hurt APRN.COMPUTER LANGUAGE CODER [address] [place] [address] [facility] Internal Medicine 10/10/24 Extension Course Coordinator Relationship Specialty Start Date End Date Jadyn Bowden MD [address] [place] [address] PCP - General Internal Medicine 05/26/21 Corine Block APRN.IOS PROGRAMMER [address] [facility] [address] Nuclear Reactor Engineer Internal Medicine 08/14/24 Jessie Hurt APRN.COMPUTER LANGUAGE CODER [address] [place] [address] Nuclear Reactor Engineer Internal Medicine 10/10/24 Team Status: Active Member Role/Relationship Status Dates Dr. Whitney Quarles MD Family Provider Active Dr. Jadyn Bowden MD Primary Care Provider Active Team Status: Inactive Member Role/Relationship Status Dates Dr. Jadyn Bowden MD Primary Care Provider Active Start: December 28, 2024 End: December 28, 2024 Dr. Jadyn Bowden MD Referring Provider Active Start: December 28, 2024 End: December 28, 2024 Debbi Villanueva SKIDDER DRIVER, SKIDDER DRIVER-C Attending Provider Active Start: December 28, 2024 End: December 28, 2024 Team Status: Inactive Member Role/Relationship Status Dates Dr. Jadyn Bowden MD Primary Care Provider Active Start: December 28, 2024 End: December 28, 2024 Dr. Rick Bermudez MD Attending Provider Active Start: December 28, 2024 End: December 28, 2024 Dr. Rick Bermudez MD Referring Provider Active Start: December 28, 2024 End: December 28, 2024 Deena HANDY, PA Other Provider Active Start: December 28, 2024 End: December 28, 2024 Goals (unrecognized section and content) Goals may be documented in a n alternate sectionGoals may be documented in an alternate sectionGoals may be documented in an alternate sectionGoals may be documented in an alternate section FOR RECORDS PERTAINING TO PATIENTS WHO ARE OR HAVE BEEN ENROLLED IN A CHEMICAL DEPENDENCY/SUBSTANCEABUSE PROGRAM, SOME INFORMATION MAY BE OMITTED. This clinical summary was aggregated from multiple sources. Caution should be exercised in using it in the provision of clinical care. This summary normalizes information from multiple sources, and as a consequence, information in this document may materially change the coding, format and clinical context of patient data. In addition, data may be omitted in some cases. CLINICAL DECISIONS SHOULD BE BASED ON THE PRIMARY CLINICAL RECORDS. [email or web address] provides no warranty or guarantee of the accuracy or completeness of information in this document.
--- NOTE | 2025-01-10 07:06 | EX.ED.DYSGE1 ---
HPI History of Present Illness Chief Complaint: Nosebleed Informant: patient, family and EMS Narrative Narrative: Patient is an 89-year-old female with past medical history of hypertension hyperlipidemia and paroxysmal atrial fibrillation currently on Eliquis. She states she was seen a few days ago by Dr. Mathis in the ENT office and had both right and left nostrils cauterized. Patient states she has been doing well since that time and taking all of her medication as directed. She states yesterday she took her Eliquis in the morning but not her evening dose. She states she went to bed and then woke up around 4:30 with sensation of something dripping out of her nose and on the back of her throat and when she went to the bathroom noticed it was blood. Secondary to her blood thinner use and repeat nasal bleeding she presents for evaluation [facility] Medical History Shortness of breath Urinary retention Internal bleeding hemorrhoids Rectal bleeding History of non-ST elevation myocardial infarction (NSTEMI) Presence of stent in coronary artery (~06/20/15) Diverticulosis Macular degeneration History of basal cell carcinoma Essential hypertension Atherosclerotic heart disease of minto coronary artery without angina pectoris Pure hypercholesterolemia Diabetes mellitus type II, controlled PAF (paroxysmal atrial fibrillation) Lichen planus Home Medications ?Medication ?Instructions ?Recorded ?Last Taken ?Type cyanocobalamin (vitamin B-12) 1,000 mcg PO DAILY SUPPLEMENT 09/26/19 09/25/19 History 1,000 mcg tablet sulfasalazine 500 mg tablet 500 mg PO Q6H PRN PRN SKIN 09/26/19 09/25/19 History cholecalciferol (vitamin D3) 25 5,000 unit PO DAILY PRN SUPPLEMENT 02/16/24 Unknown History mcg (1,000 unit) tablet vitamins A,C,A-keqo-pjarbz 4,296 1 cap PO QDAY 02/16/24 Unknown History mcg-226 mg-90 mg capsule (PreserVision AREDS) apixaban 5 mg tablet 5 mg PO BID #180 tabs 08/06/24 Unknown Rx metoprolol tartrate 100 mg tablet 100 mg PO BID heart #180 tabs 08/08/24 Unknown Rx atorvastatin 40 mg tablet 40 mg PO QDAY #90 tabs 09/04/24 Unknown Rx furosemide 40 mg tablet 40 mg PO QDAY #90 tabs 09/04/24 Unknown Rx losartan 100 mg tablet 100 mg PO QAM #90 tabs 09/04/24 Unknown Rx amlodipine 5 mg tablet 5 mg PO QHS #90 tabs 09/13/24 Unknown Rx potassium chloride 8 mEq 8 meq PO DAILY #90 caps 11/07/24 Unknown Rx capsule,extended release Allergy/AdvReac Type Severity Reaction Status Date / Time codeine AdvReac Nausea Verified 01/10/25 05:11 lisinopril AdvReac Cough Verified 01/10/25 05:11 Family History Mother Hypertension Heart disease Diabetes Father Diabetes Hypertension Sister Hypertension Diabetes Sister Diabetes Hypertension Sister Diabetes Hypertension Sister Diabetes Hypertension Surgical History History of hemorrhoidectomy (~10/2019) History of colonoscopy (~09/2019) History of total hysterectomy History of repair of rotator cuff History of bilateral oophorectomy Presence of coronary angioplasty implant and graft (~06/20/15) Social History Smoking Status: Never smoker alcohol intake: never substance use type: does not use caffeine: No ROS ROS ED Constitutional Constitutional ED: Denies chills or fever(s) ENT ENT ED: Reports other Details: Positive nosebleed ; Denies sore throat Cardiovascular Cardiovascular: Denies chest pain, palpitations or racing heartbeat Respiratory/Chest Respiratory/Chest: Reports cough; Denies dyspnea Gastrointestinal Gastrointestinal: Denies abdominal pain, diarrhea, nausea or vomiting Musculoskeletal Musculoskeletal: Denies neck pain Integumentary Denies rash Neurologic Neurologic: Denies headache(s) Psychiatric Psychiatric: Reports anxiety Hematologic/Lymphatic Hematologic/Lymphatic: Reports easy bleeding and easy bruising EXAM Physical Exam Const Vital Signs: 01/10/25 05:12 01/10/25 07:11 Temperature 96.6 F L Temperature Source Temporal Pulse Rate 89 83 Respiratory Rate 16 18 Blood Pressure 209/94 H 201/99 H Blood Pressure Mean 132 133 Pulse Ox 98 99 Oxygen Delivery Method Room Air Positive well nourished and well developed General Appearance ED: well developed; Negative for pallor HEENT HEENT Narrative: Patient has brisk dark red bleeding out of both nostrils but mainly from the left side There is active drainage noted in the posterior pharynx as well No tongue or lip swelling no oral lesions no airway edema or compromise. Eyes PERRL and EOMs intact bilaterally General Eye ED: Negative for pale conjunctiva or scleral icterus Neck supple Resp normal respiratory effort and clear to auscultation bilaterally Resp Narrative: No nasal flaring retractions tachypnea or accessory muscle use Cardio regular rate and regular rhythm Extremity normal to inspection Neuro oriented x3, CN's II-XII intact bilaterally and no sensory deficits noted Sensorium / Orientation: alert Motor Exam: strength 5/5 throughout Psych Mood & Affect: anxious Skin no rashes or lesions noted Skin Narrative: Capillary refill is less than 3 seconds General Skin Exam: Negative for jaundice or pallor MDM MDM MDM Narrative Medical decision making narrative: Patient arrived to the ER hypertensive but has a past medical history of this has not taken her morning blood pressure medications and states she is anxious. She is on Eliquis but she states bleeding started spontaneously roughly 1 hour prior to arrival. Based on her skin color capillary refill mental status and hypertension I have low concern for acute blood loss anemia and feel no need for emergent laboratory studies. On physical exam it seemed that the blood was more persistent or more intense from the left nostril so initially I placed a 5.5 cm rapid Rhino. After a few minutes bleeding persisted so this was removed and she was placed on a 7.5 cm rapid Rhino. This seemed to achieve hemostasis. She was watched for approximately an hour and a half and there did not seem to be bleeding in the left side posterior pharynx or breakthrough bleeding from the left nostril. However there was a mild persistent bleed out of the right nostril and in the right posterior pharynx so a 5.5 cm rapid Rhino was placed in the right nostril. The case was then discussed with the ENT on-call Dr. Corado. He states he prefers Merisel packing. Therefore I removed the rapid Rhino's and placed a 8 cm Merisel in both the left and right nostril. The patient initially had improvement of her blood pressure after treatment with IM Ativan secondary to her anxiety. However after having to pack both sides of her nasal passage remove them and packed them again blood pressure went up secondary to irritation and pain. Therefore I ordered her home medication. At this time she is awake and alert and reevaluation does not display any breakthrough bleeding from the nostrils or in the posterior pharynx. She will need to be watched for roughly 1 hour and then the case discussed once again with ENT. As that evaluation is still pending the patient will be signed out to day physician Dr. 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 Instructions: ED Epistaxis (Adult) Prescriptions: No Action PreserVision AREDS 4,296 mcg-226 mg-90 mg capsule 1 cap PO QDAY apixaban 5 mg tablet 5 mg PO BID Qty: 180 3RF sulfasalazine 500 MG tablet 500 mg PO Q6H PRN PRN (Reason: SKIN) cyanocobalamin (vitamin B-12) 1,000 MCG tablet 1,000 mcg PO DAILY cholecalciferol (vitamin D3) 25 mcg (1,000 unit) tablet 5,000 unit PO DAILY PRN (Reason: SUPPLEMENT) metoprolol tartrate 100 mg tablet 100 mg PO BID Qty: 180 3RF losartan 100 mg tablet 100 mg PO QAM Qty: 90 3RF furosemide 40 mg tablet 40 mg PO QDAY Qty: 90 3RF atorvastatin 40 mg tablet 40 mg PO QDAY Qty: 90 3RF amlodipine 5 mg tablet 5 mg PO QHS Qty: 90 3RF potassium chloride 8 mEq capsule, extended release 8 meq PO DAILY Qty: 90 3RF Primary Care Provider: Albania Shen Referrals: Clinton Carpenter MD [Med Staff - Active Staff] - Albania Shen MD [Primary Care Provider] - Activity Restrictions/Additional Instructions: Please stop your Eliquis for the next 3 days as this will help with clotting and return of bleeding. Follow-up with ENT for repeat evaluation and return to the ER should you have any further concerns. Print Language: Urdu
[2025-01-10 07:11] VITALS: BP 201/99; PULSE 83; RESP 18; O2SAT 99
[2025-01-10 08:48] VITALS: BP 169/67; PULSE 76; RESP 16; O2SAT 95
[2025-01-10 09:10] VITALS: BP 169/67; PULSE 76; RESP 16; TEMP 36.8; O2SAT 95
== END 2025-01-10 09:10 | disposition home or self-care (01) ==
PROVIDERS: Emergency Provider Emergency Medicine; PCP Internal Medicine; Visit Provider Emergency Medicine
DX: R04.0 Epistaxis (principal); I48.0 Paroxysmal atrial fibrillation; E11.9 Type 2 diabetes mellitus without complications; I10 Essential (primary) hypertension; I25.10 Atherosclerotic heart disease of native coronary artery without angina pectoris; E78.00 Pure hypercholesterolemia, unspecified; F41.9 Anxiety disorder, unspecified; Z79.01 Long term (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; Z79.899 Other long term (current) drug therapy; I25.2 Old myocardial infarction; Z95.5 Presence of coronary angioplasty implant and graft
CPT/HCPCS: 30901; 30905; 96372; 99284

== ENCOUNTER 2025-01-20 12:37 | Emergency (ER) | payer MEDICARE, SELFPAY ==
[2025-01-20 12:39] VITALS: BP 155/71; PULSE 71; RESP 19; TEMP 36.5; O2SAT 99; BMI 34.4
--- NOTE | 2025-01-20 12:51 | VDLE_ITS ---
Reason For Study Reason For Study: Right leg pain RIGHT LEFT GSV is normal. CFV is compressible, spontaneous, phasic, competent, CFV is compressible, spontaneous, phasic, competent and demonstrates normal augmentation. and demonstrates normal augmentation. FV is compressible, spontaneous, phasic, competent and demonstrates normal augmentation. POP V is compressible, spontaneous, phasic, competent and demonstrates normal augmentation. T/P Trunk is compressible. PTV is compressible. RT PerV is compressible. Kinjal, drumbeat flow noted, 127.1 cm/sec. Mobile thrombus noted in popliteal artery. LOCK OPERATOR distal, 17.4 cm/sec PeroA distal, No flow, DEMETRIA distal, 16.5 cm/sec. Procedure This is a venous duplex using B-mode, color flow and spectral Doppler. Exam performed portable in ED. A preliminary report was called and/or faxed to Dr. May. VL/Venous Duplex US, Unilateral Interpretation Summary Deep veins of the right lower extremity are patent and compressible segmentally . There is no evidence of right lower extremity deep vein thrombosis. The right great saphenous vein appears patent a nd compressible segmentally. Incidental finding, right popliteal artery occlusion/thrombus. Ordering Physician: Satya May Referring Physician: Albania Shen M.D. Performed By: Raven Hanley RVT
--- NOTE | 2025-01-20 13:02 | ED.VIS.LOWEX ---
HPI History of Present Illness HPI Narrative: 89-year-old female intermittent right lower extremity leg pain last several days. Worse earlier today but now resolved. Currently pain-free. Chief Complaint: Lower Extremity Injury Informant: patient and family (2 daughters at bedside.) Occured/Mechanism Mechanism/Context: No injury and No blunt trauma Onset/Context/Timing Onset: Days Context: Gradual Onset Timing: Intermittent Current Severity: Gone Maximum Severity: Moderate Associated Symptoms Associated Symptoms: Negative for Parasthesia, Weakness or Loss of Funtion Narrative Narrative: 89-year-old female history of prior RI, A-fib, macular degeneration. Recently had a nosebleed was taken off her Eliquis about 8 days ago. Several day history of intermittent right leg pain. No fall injury or trauma. No redness or warmth. No fever or chills. No swelling. Had x-rays done at her primary care physician's office reportedly did not show anything specifically. Today had worse pain in her calf but now she is completely symptom-free. Currently no pain. Brought in by the squad. Accompanied by her daughters. Prior similar symptoms: No Recent Illness/Hospitalization: No PFSH PFSH Medical History Shortness of breath Urinary retention Internal bleeding hemorrhoids Rectal bleeding History of non-ST elevation myocardial infarction (NSTEMI) Presence of stent in coronary artery (~06/20/15) Diverticulosis Macular degeneration History of basal cell carcinoma Essential hypertension Atherosclerotic heart disease of [place] coronary artery without angina pectoris Pure hypercholesterolemia Diabetes mellitus type II, controlled PAF (paroxysmal atrial fibrillation) Lichen planus Home Medications ?Medication ?Instructions ?Recorded ?Last Taken ?Type cyanocobalamin (vitamin B-12) 1,000 mcg PO DAILY SUPPLEMENT 09/26/19 09/25/19 History 1,000 mcg tablet sulfasalazine 500 mg tablet 500 mg PO Q6H PRN PRN SKIN 09/26/19 09/25/19 History cholecalciferol (vitamin D3) 25 5,000 unit PO DAILY PRN SUPPLEMENT 02/16/24 Unknown History mcg (1,000 unit) tablet vitamins A,C,E-xero-jfvxnh 4,296 1 cap PO QDAY 02/16/24 Unknown History mcg-226 mg-90 mg capsule (PreserVision AREDS) atorvastatin 40 mg tablet 40 mg PO QDAY #90 tabs 09/04/24 Unknown Rx furosemide 40 mg tablet 40 mg PO QDAY #90 tabs 09/04/24 Unknown Rx losartan 100 mg tablet 100 mg PO QAM #90 tabs 09/04/24 Unknown Rx amlodipine 5 mg tablet 5 mg PO QHS #90 tabs 09/13/24 Unknown Rx potassium chloride 8 mEq 8 meq PO DAILY #90 caps 11/07/24 Unknown Rx capsule,extended release cephalexin 500 mg capsule 500 mg PO Q6 #20 CAPSULES 01/10/25 Unknown Rx metoprolol tartrate 100 mg tablet 100 mg PO BID heart #180 tabs 01/11/25 Unknown Rx apixaban 2.5 mg tablet (Eliquis) 2.5 mg PO BID This is a DOSE 01/17/25 Unknown Rx REDUCTION #60 tabs Allergy/AdvReac Type Severity Reaction Status Date / Time codeine AdvReac Nausea Verified 01/10/25 05:11 lisinopril AdvReac Cough Verified 01/10/25 05:11 Family History Mother Hypertension Heart disease Diabetes Father Diabetes Hypertension Sister Hypertension Diabetes Sister Diabetes Hypertension Sister Diabetes Hypertension Sister Diabetes Hypertension Surgical History History of hemorrhoidectomy (~10/2019) History of colonoscopy (~09/2019) History of total hysterectomy History of repair of rotator cuff History of bilateral oophorectomy Presence of coronary angioplasty implant and graft (~06/20/15) Social History Smoking Status: Never smoker alcohol intake: never substance use type: does not use caffeine: No ROS ROS ED ROS Narrative Denies recent illness. Constitutional Constitutional ED: Denies chills or fever(s) Eyes Eyes: Denies blurry vision ENT ENT ED: Denies ear pain Cardiovascular Cardiovascular: Denies chest pain Respiratory/Chest Respiratory/Chest: Denies cough or dyspnea Gastrointestinal Gastrointestinal: Denies abdominal pain Genitourinary Genitourinary ED: Denies dysuria or hematuria Musculoskeletal Musculoskeletal: Denies arthralgias Integumentary Denies abscess or Abrasions Psychiatric Psychiatric: Denies anxiety Endocrine Endocrinology: Denies polydipsia Hematologic/Lymphatic Hematologic/Lymphatic: Denies easy bleeding Allergic/Immunologic Allergic/Immunologic ED: Denies mouth swelling EXAM Physical Exam Narrative Exam Narrative: Very well-appearing 89-year-old female. Vital signs stable afebrile. No distress. Pulse ox 99% on room air no hypoxia. H EENT exam pupils round react light. Moist mutes membranes. No facial droop. Normal speech. Neck nontender no JVD. Back nontender. Lungs clear to auscultation bilaterally. Heart A-fib rate about 70 no murmur. Chest wall and ribs nontender. Abdomen soft nontender. No pulsatile mass. No peritoneal signs. Moving all 4 extremities. 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 Dorsi plantarflexion intact. Both lower extremities appear normal. They are warm to the touch. No rashes. No cellulitis. No joint pain or swelling. Full flexion extension of both hips, knees and ankles and feet. Normal dorsi plantarflexion. No redness or warmth. No calf tenderness. Equal and symmetrical DP pulses. Leg is totally normal in appearance on the right and the left. Currently she is symptom-free. She has no inguinal lymphadenopathy. Neurologically she is awake alert. Answer questions following commands. Has normal strength and sensation in both upper and lower extremities. Const Vital Signs: 01/20/25 12:39 Temperature 97.7 F L Temperature Source Temporal Pulse Rate 71 Respiratory Rate 19 H Blood Pressure 155/71 H Blood Pressure Mean 99 Pulse Ox 99 Oxygen Delivery Method Room Air Positive well nourished and well developed; Negative for cachectic, contractures or unkempt General Appearance ED: well developed and NAD; Negative for unkempt, cachectic or contractures Nutritional Appearance: Negative for cachectic HEENT Reports moist mucous membranes normocephalic and atraumatic Eyes PERRL Neck full ROM and supple Chest Wall inspection of chest normal and palpation of chest normal Resp normal respiratory effort, no retractions and clear to auscultation bilaterally Auscultation: Negative for rales, rhonchi, wheezes or diminished lung sounds Cardio regular rate, S1 normal heart sound, S2 normal heart sound and no murmurs Cardio Narrative: A-fib rate about 70. Rhythm: abnormal rhythm GI non-tender, non-distended and no masses Auscultation: normoactive bowel sounds Palpation: soft Back/Spine no CVA tenderness General Back: Negative for CVA tenderness Cervical Spine: Negative for cervical spine tenderness Thoracic Spine / Upper Back: Negative for thoracic spinal tenderness Lumbar Spine / Lower Back: Negative for lumbar spinal tenderness Extremity normal to inspection and full ROM Extremity Narrative: Both lower extremities are normal in appearance. Equal symmetrical. Normal strength. Normal sensation. Normal DP pulse. No calf pain or tenderness. No edema. Normal range of motion. No hot or swollen joints. No cellulitis. General Extremety ED: Negative for cyanosis or edema General Extremity: Negative for cyanosis or edema Neuro oriented x3, CN's II-XII intact bilaterally, moves all extremities and no sensory deficits noted Sensorium / Orientation: alert, oriented to person, oriented to place and oriented to time; Negative for orientation impaired, confused, lethargic or stuporous Motor Exam: strength 5/5 throughout Psych mental status grossly normal Appearance: Negative for unkempt Skin no wounds Lesions: no lesions Rashes: no rashes MDM MDM MDM Narrative Medical decision making narrative: 89-year-old female transient right leg pain currently resolved with a normal exam and a good pulse. There is no signs of infection. There is no history or signs of trauma. And currently she has no signs of a DVT or arterial clot. Venous ultrasounds being obtained. She may be intermittently throwing clots causing her pain and numbness. Currently she is symptom-free. Repeat exam patient doing well at 2 PM. Had a lengthy discussion and both she and her 2 daughters at bedside. The noninvasive study showed no venous clot she has an arterial clot in the popliteal artery. But she is getting flow past it. Currently she is symptom-free. No pain. Good DP pulse. Good strength and sensation of the right leg. No swelling. I discussed all this with our vascular surgeon Dr. Lonnie Baron. He and I are both comfortable with her being discharged to home restart her Eliquis 2.5 mg twice a day. She has had at home. I will give her her first dose here. Then she will follow-up with his office this week for further evaluation. If she gets recurrent symptoms of leg ischemia such as pain or numbness they will return. Family is comfortable with the plan. History & Record Review Discussion w/independent historian: Patient and Family Additional record(s) reviewed:: Prior inpatient record, Prior outpatient record, Prior ED visit and Prior labs Lab Data Lab results narrative: Right leg noninvasive study. No DVT. Popliteal arterial clot with posterior flow. Discharge Plan Triage Chief Complaint: Lower Extremity Injury ED Provider: Satya May Dx/Rx/DC Orders Prescriptions: No Action PreserVision AREDS 4,296 mcg-226 mg-90 mg capsule 1 cap PO QDAY sulfasalazine 500 MG tablet 500 mg PO Q6H PRN PRN (Reason: SKIN) cyanocobalamin (vitamin B-12) 1,000 MCG tablet 1,000 mcg PO DAILY cholecalciferol (vitamin D3) 25 mcg (1,000 unit) tablet 5,000 unit PO DAILY PRN (Reason: SUPPLEMENT) cephalexin 500 mg capsule 500 mg PO Q6 Qty: 20 0RF losartan 100 mg tablet 100 mg PO QAM Qty: 90 3RF furosemide 40 mg tablet 40 mg PO QDAY Qty: 90 3RF atorvastatin 40 mg tablet 40 mg PO QDAY Qty: 90 3RF amlodipine 5 mg tablet 5 mg PO QHS Qty: 90 3RF potassium chloride 8 mEq capsule, extended release 8 meq PO DAILY Qty: 90 3RF metoprolol tartrate 100 mg tablet 100 mg PO BID Qty: 180 3RF Eliquis 2.5 mg tablet 2.5 mg PO BID Qty: 60 11RF Primary Care Provider: Albania Shen Referrals: Albania Shen MD [Primary Care Provider] - Print Language: Wolof
--- OUTSIDE RECORDS SUMMARY | 2025-01-20 13:04 | XMS RPT_ITS | CCD ---
Author Organization [facility] Care Team Providers Care Cook Roast Name Role Phone MICHEL, FELICE E Unavailable Unavailable MICHEL, FELICE E Unavailable Unavailable MICHEL, FELICE Unavailable Unavailable MICHEL, FELICE Unavailable Unavailable MICHEL FELICE Unavailable Unavailable FELICE PEARSON Unavailable Unavailable Jadyn Bowden MD Primary Care Provider Jadyn Bowden MD Primary Care Provider Jadyn Bowden MD Primary Care Provider Jadyn Bowden MD Primary Care Provider Whitney Quarles MD Primary Care Provider Hurt FITTER MACHINIST.CURTAIN CUTTER HAND, Jessie Unavailable Umair FITTER MACHINIST.CALL CENTER CONSULTANT, Corine Unavailable Umair FITTER MACHINIST.CALL CENTER CONSULTANT, Corine Unavailable Dr. Jadyn Bowden MD Primary Care Provider Dr. Jadyn Bowden MD Referring Provider Dr. Rick Bermudez MD Attending Provider Dr. Rick Bermudez MD Referring Provider Umair FITTER MACHINIST.CALL CENTER CONSULTANT, Corine Unavailable Hurt FITTER MACHINIST.CURTAIN CUTTER HAND, Jessie Unavailable Hurt FITTER MACHINIST.CURTAIN CUTTER HAND, Jessie Unavailable Dr. Jadyn Bowden MD Primary Care Provider [phone] Dr. Jadyn Bowden MD Referring Provider Debbi Ramírez Attending Provider Aidan MCCLAIN, Dr. Cabrera Attending Provider Aidan MCCLAIN, Dr. Cabrera Referring Provider Deena Choudhury Other Provider Dr. Ruslan Salguero DO Emergency Provider Aidan, Rick Attending Unavailable Aidan, Rick Referring Unavailable Talampas, Jadyn D Primary Care Unavailable Aidan, Rick Attending Unavailable Aidan, Rick Referring Unavailable Talampas, Jadyn D Primary Care Unavailable Aidan, Rick Attending Unavailable Aidan, Rick Referring Unavailable Talampas, Jadyn D Primary Care Unavailable Talampas, Jadyn D Primary Care Unavailable Ruslan Salguero Attending Unavailable Aidan, Rick Attending Unavailable Aidan, Rick Referring Unavailable Talampas, Jadyn D Primary Care Unavailable Deena Choudhury Consulting Unavail able Aidan, Rick Attending Unavailable Talampas, Jadyn D Primary Care Unavailable Talampas, Jadyn D Referring Unavailable Aidan, Rick Attending Unavailable Talampas, Jadyn D Primary Care Unavailable Talampas, Jadyn D Referring Unavailable Talampas, Jadyn D Primary Care Unavailable Debbi Villanueva NP Attending Unavailable Aidan, Rick Referring Unavailable Lonnie Melendez Attending Unavailable Talampas, Jadyn D Primary Care Unavailable Talampas, Jadyn D Primary Care Unavailable Debbi Villanueva NP Attending Unavailable Aidan, Rick Attending Unavailable Aidan, Rick Consulting Unavailable Aidan, Rick Referring Unavailable Talampas, Jadyn D Primary Care Unavailable Talampas, Jadyn D Primary Care Unavailable Talampas, Jadyn D Referring Unavailable Debbi Villanueva NP Attending Unavailable Talampas, Jadyn D Referring Unavailable Talampas, Jadyn D Primary Care Unavailable Aidan, Rick Attending Unavailable Aidan, Rick Attending Unavailable Aidan, Rick Referring Unavailable Talampas, Jadyn D Primary Care Unavailable TALAMPAS, JADYN D Primary Care Unavailable AYANNA PATEL Referring Unavailable TALAMPAS, JADYN D Primary Care Unavailable AYANNA PATEL Attending Unavailable TALAMPAS, AJDYN D Primary Care Unavailable TALAMPAS, JADYN D Referring Unavailable HURT, JESSIE Attending Unavailable TALAMPAS, JADYN [...] D Primary Care Unavailable TALAMPAS, JADYN D Primary Care Unavailable HURT, JESSIE Attending Unavailable Allergies Allergy Classification Reported Allergen(s) Allergy Type Date of Onset Reaction(s) Facility (20 sources) codeine; Translations: [CODEINE] Drug Allergy 09-12-2007 Vomiting [facility] Rep[facility] (20 sources) lisinopril; Translations: [LISINOPRIL] Drug Allergy 11-25-2010 Cough [facility] Rep[facility] Medications Current Medications Medication Drug Class(es) Dates Sig (Normalized) Sig (Original) amLODIPine 5 mg oral tablet (20 sources) Dihydropyridine Calcium Channel Mia Start: 07-06-2019 End: 09-13-2024 take 1 tablet by mouth once daily amLODIPine (NORVASC) 5 mg tablet Take 1 tablet by mouth once daily. (Dr. Hernández) 12/14/2023 Active Start: 06-12-2019 End: 06-12-2019 take 5 mg [...] by michelle th once daily. (Dr. Esparza) amoxicillin 500 mg oral capsule (3 sources) Penicillin-class Antibacterial Start: 06-03-19 End: 06-10-19 take 2 capsules by mouth three times daily amoxicillin (POLYMOX, AMOXIL) 500 mg capsule Indications: Acute cough , Shortness of breath Take 2 capsules by mouth three times daily for 7 days. 42 capsule 0 06/03/2022 06/10/2022 Active Comment on above: Take 2 capsules by m outh three times daily for 7 days. apixaban 5 mg oral tablet (20 sources) Factor Xa Inhibitor Start: 10-11-19 End: 08-07-19 take 1 tablet by mouth twice daily apixaban (ELIQUIS) 5 mg tab(s) Indications: Renal infarct (HCC) , Aortic mural thrombus (HCC) Take 1 tablet by mouth two times a day. ([facility]) 12/14/2023 Active Start: 09-28-2019 End: 10-11-2019 take 2 tablets by mouth twice daily, then take 1 tablet by mouth once daily Apixaban 5 MG tablet Discontinued 10 mg PO TWICE A DAY 72 September 28, 2019 12:00October 11, 2019 3:46pm [...] on above: Take 1 tablet by michelle twice daily. atorvastatin 40 mg oral tablet (20 sources) HMG-CoA Reductase Inhibitor Start: End: take 1 tablet by mouth once daily Atorvastatin 40 mg tablet Active 40 mg PO daily 90 September 04, 2024 10:40am Start: 11-14-2018 End: 08-06-2024 take 1 tablet by mouth once daily atorvastatin (LIPITOR) 80 mg tablet Indications: Mixed hyperlipidemia Take 1 tablet by mouth once daily. 90 tablet 3 03/17/2021 Active Comment on above: Take 1 tablet by michelle once daily. azithromycin 250 mg oral tablet (3 sources) Macrolide Antimicrobial Start: 06-03-19 End: 06-08-19 azithromycin (ZITHROMAX Z-ANJUM) 250 mg tablet Take 2 tablets day one, then, 1 tablet daily until gone. 6 tablet 0 06/03/2022 06/08/2022 Active Comment on above: Take 2 tablets day o ne, then, 1 tablet daily until gone. cephalexin 500 mg oral capsule (8 sources) Cephalosporin Antibacterial Start: 01-11-20 take 1 capsule by mouth every six hours Cephalexin 500 mg capsule Active 500 mg PO EVERY 6 HOURS 20 0 January 10, 2025 12:00am Start: 11-08-2024 End: 01-17-2025 take 1 capsule by mouth three times daily at mealtime cephALEXin (KEFLEX) 500 mg capsule Indications: UTI symptoms , Recurrent UTI Take 1 capsule by mouth three times a day. Take with food 21 capsule 11/08/2024 01/17/2025 Discontinued Start: 06-29-2024 End: 07-09-2024 take 1 capsule [...] SUPPLEMENT Start: 09-26-2019 take 5000 [IU] by [facility] once daily Cholecalciferol (Vitamin D3) Active 5000 UNIT PO DAILY September 26, 2019 12:00am Comment on above: Take 1 capsule by [facility] once daily. Compression Knee Highs (20 sources) [...] take 1 tablet by mouth once daily furosemide (LASIX) 40 mg tablet Take 1 tablet by mouth once daily. 09/04/2024 Active Start: 10-30-2020 End: 01-17-2025 take 1 tablet by mouth once daily furosemide (LASIX) 20 mg tablet Indications: Weight gain Take 1 tablet by mouth once daily. 3 tablet 10/30/2020 01/17/2025 Discontinued Comment on above: Take 1 tablet by [facility] once daily. lactobacillus acidophilus [id number] unt oral capsule (20 sources) Lactobacillus acidophilus (PROBIOTIC) 10 billion cell cap Take by mouth. Active Comment on above: Take by mouth. metoprolol tartrate 100 mg oral tablet (20 sources) beta-Adrenergic Mia Start: 9 End: take 1 tablet by mouth twice daily metoprolol tartrate, short acting, (LOPRESSOR) 100 mg tablet Indications: Essential hypertension, benign Take 1 tablet by mouth two times a day. ([facility]) 12/14/2023 Active Start: 11-14-2018 End: 01-31-2019 Metoprolol Tartrate 100 [...] 1 tablet by michelle th twice daily. mometasone furoate 1 mg/ml topical cream (12 sources) Corticosteroid Start: apply 180 g into [...] tablet by mouth twice daily at mealtime sulfamethoxazole- trimethoprim (BACTRIM DS) 800-160 mg per tablet Take [...] BACK ON DOSE ABLE WHEN CONTROLLED DIRECTED traZODone hydrochloride 50 mg oral tablet (20 sources) Serotonin Reuptake Inhibitor Start: 2 End: 4 take 1 tablet by mouth at bedtime as needed traZODone (DESYREL) 50 mg tablet Indications: Adjustment insomnia Take 1 tablet by mouth at bedtime as needed (insomnia). 90 tablet 1 12/17/2022 Active Comment on above: Take 0.5-1 tablets b y mouth at bedtime as needed (sedation). Take 1 tablet by michelle th at bedtime as needed (insomnia). VIT C/E/ZN/COPPR/LUTEIN/ZE AXAN (PRESERVISION AREDS 2 ORAL) (20 sources) VIT C/E/ZN/COPPR/LUTEIN /ZEAXAN (PRESERVISION AREDS 2 ORAL) Take by mouth twice daily. Active VIT C/E/ZN/COPPR /LUTEIN/ZEAXAN (PRESERVISION AREDS 2 ORAL) Take by mouth twice daily. 0 Active Comment on above: Take by mouth twice daily. vitamin b12 1 mg oral tablet (5 sources) Vitamin B12 Start: 09-26-2019 take 1 tablet by mouth once daily Cyanocobalamin (Vitamin B-12) 1,000 MCG tablet Active 1000 ug PO DAILY September 26, 2019 12:00am SUPPLEMENT Vitamins A,C,Y-Mqvx-Fufmrm (Preservision Areds) 4,296 mcg-226 mg-90 mg capsule (4 sources) Start: 02-16-2024 Vitamins A,C,S-Uxjw-Pydszq (Preservision Areds) 4,296 mcg-226 mg-90 mg capsule Active 1 NMA PO daily February 16, 2024 12:00am Completed/Discontinued Medications Medication Drug Class(es) Dates Sig (Normalized) Sig (Original) acetaminophen 325 mg / HYDROcodone bitartrate 5 mg oral tablet (5 sources) Opioid Agonist Start: 10-24-2019 End: 10-26-2019 [...] October 24, 2019 October 26, 2019 12:02am [id number] 200 actuat albuterol 0.09 mg/actuat metered dose inhaler (6 sources) beta2-Adrenergic Agonist Start: 09-13-2024 End: 01-17-2025 take 1-2 puff(s) by inhalation four times daily as needed for cough albuterol HFA (PROVENTIL HFA) 90 mcg/actuation inhaler Indications: Sinobronchitis Inhale 1-2 puffs as instructed four times a day as needed for wheezing/shortness of breath (cough). 1 each 1 09/13/2024 01/17/2025 Discontinued ascorbic acid 226 mg / cuprous oxide 0.8 mg / dl-alpha tocopheryl acetate 200 unt / lutein 5 mg / zinc oxide 34.8 mg oral capsule (9 sources) Vitamin C Start: 11-14-2018 End: 02-16-2024 Vit N-D-Ubrxsy-Zinc-Lutein 226-90-0.8-5 mg capsule Discontinued 1 NMA PO TWICE A DAY December 24, 2021 10:02am February 16, 2024 10:50am eye health Start: 11-14-2018 take 1 capsule by [facility] twice daily Vit R-B-Lbnbof-Zinc-Lutein Active 1 CAP PO TWICE A DAY November 14, 2018 12:00am aspirin 81 mg delayed release oral tablet (20 sources) Platelet Aggregation Inhibitor, Nonsteroidal Anti-inflammatory Drug Start: 11-14-2018 End: 12-13-2019 take 1 tablet by mouth once daily Aspirin 81 mg tablet,delayed release (DR/EC) Discontinued 81 mg PO DAILY@0800 1 0 November 22, 2019 9:34am December 13, 2019 10:13am Hold for 5 days benzonatate 100 mg oral capsule (13 sources) Non-narcotic Antitussive Start: 09-13-2024 End: 01-17-2025 take 1 capsule by mouth three times daily as needed benzonatate (TESSALON PERLE) 100 mg capsule Indications: Sinobronchitis Take 1-2 capsules by mouth three times a day as needed for cough. 60 capsule 1 09/13/2024 01/17/2025 Discontinued Start: 05-26-2022 End: 06-13-2022 take 1 capsule by mouth three times daily as needed benzonatate (TESSALON PERLE) 100 mg capsule Indications: Viral URI with cough , Acute cough , Shortness of breath Take 1-2 capsules by mouth three times daily as needed for up to 10 days. 60 capsule 1 06/03/2022 06/13/2022 Active Comment on above: Take 1 capsule by mo uth three times daily as needed for up to 10 days. Take 1-2 capsules by mouth three times daily as needed for up to 10 days. Take 1 capsule by mo uth three times daily as needed. dicyclomine hydrochloride 10 mg oral capsule (16 sources) Anticholinergic Start: End: take 1 capsule by mouth twice daily Dicyclomine 10 mg capsule Discontinued 10 mg PO TWICE A DAY December 13, 2019 12:00am August 07, 2020 11:08am Comment on above: Take 1 capsule by mo uth twice daily. diphenhydrAMINE hydrochloride 25 mg oral tablet (11 sources) Histamine-1 Receptor Antagonist Start: End: take 1 tablet by mouth once daily [...] up hydrOXYzine hydrochloride 10 mg oral tablet (6 sources) Antihistamine Start: 10-31-19 End: 05-26-19 22 take 1 tablet by mouth every four hours as needed Hydroxyzine Hcl 10 mg tablet Discontinued 10 mg PO Q4H as needed for itching January 31, 2019 12:00am June 12, 2019 4:59pm Pcani-Msmek-3-Dha-Epa -Lipids (1 source) Start: 11-15-19 End: 02-01-20 19 take 1 capsule by mouth twice daily Yjclw-Ojoyx-2-Dha-Ep a-Lipids Discontinued 1 CAP PO TWICE A DAY November 14, 2018 12:00am January 31, 2019 9:53am Sgibp-Uwmua-6-Dha-Epa -Lipids 1 EACH capsule (4 sources) Start: 11-15-19 End: 02-01-20 take 1 capsule by mouth twice daily Sultr-Feomu-2-Dha-Ep a-Lipids 1 EACH capsule Discontinued 1 NMA PO TWICE A DAY November 14, 2018 12:00am January 31, 2019 9:53am supplement Start: 11-14-2018 End: 01-31-2019 take 1 capsule by mouth twice daily Pqpry-Sczno-9-Dhy-Hjq-Lbihud 1 EACH caps ule Discontinued 1 NMA [...] 50 Plus Probiotic) 4 billion cell capsule (5 sources) Start: 01-30-2020 End: 12-24-2021 take 4 [...] daily. 10/05/2019 05/26/2021 Discontinued Start: 06-05-2019 End: 01-17-2025 take 1 tablet by mouth once daily losartan (COZAAR) 25 mg tablet Indications: Essential hypertension, benign Take 1 tablet by mouth once daily. ([facility]) 12/14/2023 01/17/2025 Discontinued Start: 11-14-2018 End: 01-31-2019 take 1 tablet by mouth once daily Losartan 100 MG tablet Discontinued 100 mg PO DAILY November 14, 2018 12:00am January 31, 2019 9:53am Comment on above: Take 1 tablet by michelle th once daily. (Dr. Esparza) magnesium gluconate 500 mg oral tablet (6 sources) Start: 2018 End: 2021 take 1 [...] as directed on packaging. Take with food. potassium chloride 8 meq extended release oral capsule (20 sources) Start: 2022 End: 2024 take 1 capsule by mouth once daily Potassium Chloride 8 mEq capsule, extended release Discontinued 8 meq PO DAILY 90 3 November 11, 2023 8:12am November 07, 2024 12:48pm Start: 11-19-2020 End: 08-04-2022 take 2 capsules by mouth once daily potassium chloride SR (MICRO-K) 8 mEq cpER Indications: Weight gain Take 2 capsules by mouth once daily. 05/26/2021 Active Start: 11-19-2020 End: 04-15-2021 take 16 mEq by mouth once daily Potassium Chloride Act jean 16 MEQ PO DAILY 60 April 15, 2021 9:40am Start: 10-30-2020 End: 05-26-2021 take 1 capsule by mouth once daily Potassium Chloride 8 mEq capsule, extended release Discontinued 8 meq PO DAILY 30 3 November 11, 2020 12:00am November 19, 2020 4:30pm Comment on above: Take 2 capsules by m out once daily. rOPINIRole 2 mg oral tablet (1 source) Nonergot Dopamine Agonist Start: 0 End: 2 take 0.5 tablet by mouth once daily at bedtime rOPINIRole (REQUIP) 2 mg tablet Indications: Restless legs syndrome (RLS) Take 0.5 tablets by mouth daily at bedtime. 30 tablet 1 10/05/2019 05/26/2021 Discontinued vancomycin 125 mg oral capsule (11 sources) Glycopeptide Antibacterial Start: 0 End: 2 take 1 capsule by mouth once Vancomycin [...] Translations: [Lower abdominal pain, unspecified] 09-23-2023 Episodic Cardiac dysrhythmias (20 sources) Paroxysmal atrial fibrillation; Translations: [Paroxysmal atrial fibrillation] Onset: 7 06-22-2018 Chronic Coronary atherosclerosis and other heart disease (16 sources) Atherosclerotic heart disease of [place] coronary artery without angina pectoris; Translations: [Coronary [...] hypertension] Onset: 7 11-22-2018 Chronic Gastrointestinal hemorrhage (9 sources) Rectal hemorrhage; Translations: [Hemorrhage of anus and rectum] 10-16-2019 Episodic Heart valve disorders (9 sources) Aortic valve stenosis; Translations: [Nonrheumatic aortic (valve) stenosis] Onset: 5 08-06-2024 Chronic Comment on above: Mild aortic valve st enosis on echo. 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] 01-10-2025 Episodic Other aftercare (1 source) correction (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; Translations: [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] Onset: 5 Episodic Other circulatory disease (5 sources) H/O: heart disorder; Translations: [Personal history of other diseases of the circulatory system] 11-27-2021 Episodic Other circulatory disease (1 source) Personal history of other diseases of the circulatory system; Translations: [Personal history of other diseases of circulatory system] Episodic Other congenital anomalies (2 sources) Abnormal prominence of clavicle; 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), 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 Other connective tissue disease (7 sources) Pain in right lower limb; Translations: [Pain in right leg] 01-17-2025 Episodic Other connective tissue disease (1 source) Pain in right leg; Translations: [Right leg pain] Onset: 5 Episodic Other gastrointestinal disorders (5 sources) History of lower gastrointestinal bleed; Translations: [...] encounter] 10-30-2020 Episodic Other lower respiratory disease (7 sources) Dyspnea; Translations: [Shortness of breath] Episodic Other lower respiratory disease (2 sources) Cough; Translations: [Acute cough] Episodic Other lower respiratory disease (4 sources) Dyspnea on exertion; Translations: [Other forms of dyspnea] 12-15-2023 Episodic Other lower respiratory disease (1 source) Cough; Translations: [Acute cough] 06-03-2022 Episodic Other non-traumatic joint disorders (7 sources) Acute ankle pain; Translations: [Pain in right ankle and joints of right foot] 01-17-2025 Episodic Other non-traumatic joint disorders (1 source) Pain in right ankle and joints of right foot; Translations: [Acute right ankle pain] Onset: Episodic Other screening for suspected conditions (not mental disorders or infectious disease) (4 sources) Imaging of thorax abnormal; Translations: [Abnormal findings on diagnostic imaging of other specified body structures] 12-15-2023 Chronic Other skin disorders (1 source) Lesion of skin of face; Translations: [Disorder of the skin and subcutaneous tissue, unspecified] 12-14-2023 Episodic Other skin disorders (1 source) Skin lesion; Translations: [Disorder of the skin and subcutaneous tissue, unspecified] 12-14-2023 Episodic Other upper respiratory disease (7 sources) Bleeding from nose; Translations: [Epistaxis] 12-28-2024 Episodic Other upper respiratory disease (1 source) Anterior epistaxis; Translations: [Epistaxis] 01-10-2025 Episodic Other upper respiratory disease (2 sources) Epistaxis; Translations: [Epistaxis] Onset: Episodic Other upper respiratory infections (1 source) Chronic sinusitis, unspecified; Translations: [Sinobronchitis] Onset: 5 Chronic Other upper respiratory infections (3 sources) Viral upper respiratory tract infection; Translations: [Acute upper respiratory infection, unspecified] Episodic Prolapse of female genital organs (20 sources) Midline cystocele; Translations: [Cystocele, midline] Onset: 8 07-28-2007 Chronic Pulmonary heart disease (9 sources) Pulmonary hypertension; Translations: [Pulmonary hypertension, unspecified] Onset: 5 08-06-2024 Chronic Residual codes; unclassified (5 sources) Edema; Translations: [Edema, unspecified] 11-11-2020 Episodic Residual codes; unclassified (1 source) Does not perform personal care activity; Translations: [Other specified health status] 11-08-2024 Episodic Residual codes; unclassified (1 source) Other specified health status; Translations: [Self-care deficit] Onset: 5 Episodic Retinal detachments; defects; vascular occlusion; and retinopathy (2 sources) Degenerative disorder of macula ; Translations: [Unspecified macular degeneration] Onset: 5 11-08-2024 Chronic Screening and history of mental health and substance abuse codes (3 sources) Patient encounter status; Translations: [Encounter for screening examination for other mental health and behavioral disorders] 12-14-2023 Episodic Unclassified (1 source) Unknown / UNK(Unknown) Onset: Unclassified (5 sources) Age more than 65 years; Translations: [Over 65 years old] 03-24-2021 Unclassified (1 source) Follow-up on Tuesday. Call their office to schedule an appointment. 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] Onset: 10-05-2019 Resolved: 01-18-2023 10-05-2019 Chronic Chronic obstructive pulmonary disease and bronchiectasis (1 source) Bronchitis, not specified as acute or chronic; Translations: [Sinobronchitis] Onset: 09-13-2024 Episodic Conditions associated with dizziness or vertigo (2 sources) Lightheadedness; Translations: [Dizziness and giddiness] Onset: 09-10-2024 09-10-2024 Episodic Coronary atherosclerosis and other heart disease (12 sources) Stented coronary artery; Translations: [Presence of coronary angioplasty implant and graft] Onset: 05-23-2015 01-31-2019 Episodic Comment on above: PTCA/SHABNAM x1 to RCA a nd PTCA/SHABNAM x2 to LCX 06/20/15 @ [facility] Genitourinary symptoms and ill-defined conditions (20 sources) Proteinuria; Translations: [Proteinuria, unspecified] Onset: 06-08-2010 06-08-2010 Episodic Intestinal infection (20 sources) Clostridium difficile colitis; Translations: [Enterocolitis due to Clostridium difficile, not specified as recurrent] Onset: 12-17-2019 12-17-2019 Episodic Nonspecific chest pain (8 sources) Chest pain; Translations: [Chest pain, unspecified] Onset: 03-27-2024 Episodic Other diseases of kidney and ureters (20 sources) Renal infarction; 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] Onset: 10-05-2019 Resolved: 01-18-2023 10-05-2019 Episodic Other inflammatory condition of skin (20 [...] [Shortness of breath] Onset: 03-27-2024 Episodic Other nutritional; endocrine; and metabolic disorders [...] Translations: [Actinic keratosis] Onset: 09-18-2011 09-18-2011 Episodic Residual codes; unclassified (1 source) Edema, unspecified; Translations: [Edema, unspecified] Onset: 08-13-2024 Episodic Spondylosis; intervertebral disc disorders; other back problems (20 sources) Thoracic and lumbosacral neuritis; Translations: [Thoracic or lumbosacral neuritis or radiculitis, unspecified] Onset: 09-07-2010 09-07-2010 Episodic Unclassified (1 source) Onset: 09-06-2017 Results Test Name Value Interpretation Reference Range Facility No Panel Informationon 01-18 Radiology Study observation (narrative) [facility] XR ANKLE 3V AP/LAT/OBL RTon 01-18-2025 XR ANKLE 3V AP/LAT/OBL RT * * *Final Report* * * DATE OF EXAM: Jan 18 2025 1:02PM WOX [id number] - XR ANKLE 3V AP/LAT/OBL RT / PROCEDURE REASON: multiple diagnoses * * * * Physician Interpretation * * * * EXAM(s): XR ANKLE 3V AP/LAT/OBL RT..... HISTORY: 89 years old Clinical information: Right leg pain Acute right ankle pain Pt. states anterior ankle pain for 2 days. Pain goes up into Rt leg. no injury. TECHNIQUE: Images: XR ANKLE 3V AP/LAT/OBL RT Comparison: Osteopenia. RESULT: Findings: Minor degenerative change along the joint margins. No intra-articular loose bodies, fractures, or dislocations. Small plantar and dorsal calcaneal osteophytes. No soft tissue swelling.. IMPRESSION: Mild degenerative change. No acute abnormality Multi Operation Machine Operator: [facility] Transcribe Date/Time: Jan 18 2025 1:04P Dictated by : JEANNE ZIMMER MD This examination was interpreted and the report reviewed and electronically signed by: JEANNE ZIMMER MD on Jan 18 2025 1:06PM EST [id number] Normal [facility] XR Ankle - right AP and Late ral and obliqueon 01-18-2025 IMPRESSION: Mild degenerative change. No acute abnormality Multi Operation Machine Operator: AMIRA Transcribe Date/Time: Jan 18 2025 1:04P Dictated by : JEANNE ZIMMER MD This examination was interpreted and the report reviewed and electronically signed by: JEANNE ZIMMER MD on Jan 18 2025 1:06PM EST DIVISION OF RADIOLOGY * * *Final Report* * * DATE OF EXAM: Jan 18 2025 1:02PM WOX [id number] - XR ANKLE 3V AP/LAT/OBL RT / PROCEDURE REASON: multiple diagnoses * * * * Physician Interpretation * * * * EXAM(s): XR ANKLE 3V AP/LAT/OBL RT..... HISTORY: 89 years old Clinical information: Right leg pain Acute right ankle pain Pt. states anterior ankle pain for 2 days. Pain goes up into Rt leg. no injury. TECHNIQUE: Images: XR ANKLE 3V AP/LAT/OBL RT Comparison: Osteopenia. RESULT: Findings: Minor degenerative change along the joint margins. No intra-articular loose bodies, fractures, or dislocations. Small plantar and dorsal calcaneal osteophytes. No soft tissue swelling.. DIVISION OF RADIOLOGY Provider, [facility] - 01/18/2025 * * *Final Report* * * DATE OF EXAM: Jan 18 2025 1:02PM WOX 5297 - XR ANKLE 3V AP/LAT/OBL RT / PROCEDURE REASON: multiple diagnoses * * * * Physician Interpretation * * * * EXAM(s): XR ANKLE 3V AP/LAT/OBL RT..... HISTORY: 89 years old Clinical information: Right leg pain Acute right ankle pain Pt. states anterior ankle pain for 2 days. Pain goes up into Rt leg. no injury. TECHNIQUE: Images: XR ANKLE 3V AP/LAT/OBL RT Comparison: Osteopenia. RESULT: Findings: Minor degenerative change along the joint margins. No intra-articular loose bodies, fractures, or dislocations. Small plantar and dorsal calcaneal osteophytes. No soft tissue swelling.. IMPRESSION IMPRESSION: Mild degenerative change. No acute abnormality Multi Operation Machine Operator: PSCB Transcribe Date/Time: Jan 18 2025 1:04P Dictated by : JEANNE ZIMMER MD This examination was interpreted and the report reviewed and electronically signed by: JEANNE ZIMMER MD on Jan 18 2025 1:06PM [facility] XR Ankle - right AP and Late ral and obliqueOrdered By: Ccf Provider on 01-18-2025 [facility] XR TIBIA FIBULA 2V AP/LAT RT on 01-18-2025 XR TIBIA FIBULA 2V AP/LAT RT * * *Final Report* * * DATE OF EXAM: Jan 18 2025 1:02PM WOX 5266 - XR TIBIA FIBULA 2V AP/LAT RT / PROCEDURE REASON: multiple diagnoses * * * * Physician Interpretation * * * * EXAM(s): XR TIBIA FIBULA 2V AP/LAT RT..... HISTORY: 89 years old Clinical information: Right leg pain Acute right ankle pain Pt. states anterior ankle pain for 2 days. Pain goes up into Rt leg. no injury. TECHNIQUE: Images: XR TIBIA FIBULA 2V AP/LAT RT Comparison: None. RESULT: Findings: Mild degenerative changes, right knee and ankle. No fracture identified. No bone destruction or periosteal changes. Visualized soft tissues unremarkable.. IMPRESSION: No acute abnormality Multi Operation Machine Operator: AMIRA Transcribe Date/Time: Jan 18 2025 1:06P Dictated by : JEANNE ZIMMER MD This examination was interpreted and the report reviewed and electronically signed by: JEANNE ZIMMER MD on Jan 18 2025 1:07PM EST [id number] Normal [facility] XR Tibia and Fibula - right AP and Lateralon 01-18-2025 IMPRESSION: No acute abnormality Multi Operation Machine Operator: [facility] Transcribe Date/Time: Jan 18 2025 1:06P Dictated by : JEANNE ZIMMER MD This examination was interpreted and the report reviewed and electronically signed by: JEANNE ZIMMER MD on Jan 18 2025 1:07PM EST DIVISION OF RADIOLOGY * * *Final Report* * * DATE OF EXAM: Jan 18 2025 1:02PM WOX 5266 - XR TIBIA FIBULA 2V AP/LAT RT / PROCEDURE REASON: multiple diagnoses * * * * Physician Interpretation * * * * EXAM(s): XR TIBIA FIBULA 2V AP/LAT RT..... HISTORY: 89 years old Clinical information: Right leg pain Acute right ankle pain Pt. states anterior ankle pain for 2 days. Pain goes up into Rt leg. no injury. TECHNIQUE: Images: XR TIBIA FIBULA 2V AP/LAT RT Comparison: None. RESULT: Findings: Mild degenerative changes, right knee and ankle. No fracture identified. No bone destruction or periosteal changes. Visualized soft tissues unremarkable.. DIVISION OF RADIOLOGY [facility], [facility] * * *Final Report* * * DATE OF EXAM: Jan 18 2025 1:02PM WOX 5266 - XR TIBIA FIBULA 2V AP/LAT RT / PROCEDURE REASON: multiple diagnoses * * * * Physician Interpretation * * * * EXAM(s): XR TIBIA FIBULA 2V AP/LAT RT..... HISTORY: 89 years old Clinical information: Right leg pain Acute right ankle pain Pt. states anterior ankle pain for 2 days. Pain goes up into Rt leg. no injury. TECHNIQUE: Images: XR TIBIA FIBULA 2V AP/LAT RT Comparison: None. RESULT: Findings: Mild degenerative changes, right knee and ankle. No fracture identified. No bone destruction or periosteal changes. Visualized soft tissues unremarkable.. IMPRESSION IMPRESSION: No acute abnormality Multi Operation Machine Operator: AMIRA Transcribe Date/Time: Jan 18 2025 1:06P Dictated by : JEANNE ZIMMER MD This examination was interpreted and the report reviewed and electronically signed by: JEANNE ZIMMER MD on Jan 18 2025 1:07PM [facility] CNOVon 01-17-2025 CNOV Office Visit (INTMWS ) CISCO SWEETFlorinda Solis ([id number]) 1935 F Date Time Provider Department 01/17/25 1:40 PM JESSIE HURT INTMWS During your visit today, we recorded the following information about you: Pulse Respiration Blood pressure Weight 61/minute 16/minute 138/83 72.8 kg Jessie Hurt APRN.CURTAIN CUTTER HAND 01/17/2025 2:05 PM Signed Subjective Patient ID: Tasha is a 89 year old female who presents for ED Follow-up (01/10/25 [facility] ER for nose bleed. It was cauterized. Pt says cardiology is to tell her when to resume eliquis./Notes right ankle pain and leg since last evening). HPI The patient is an 89-year-old female with atrial fibrillation on apixaban, presenting for evaluation of new right lower extremity calf and ankle discomfort with associated numbness. Accompanied by her daughter, who is supplementing history. Phone note from earlier today excerpted: Pt phoned requesting same day appt for right ankle pain that started last night. Reports it's mild pain when attempting to walk. Using a rolator walker when walking to ease the weight on the ankle. Does not usually use a walker. No edema or redness in the ankle/foot/or leg. No injury. Reports the outside calf muscle has a little mild pain also without redness or edema. Pt reports she was seen in [facility] ER on 01/10/25 for epistaxis- ER put packing in the nose and advised pt to stop eliquis (takes for a-fib) Followed up with [facility]- who removed the packing and cauterized both nostrils. 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 Pt has not heard back about this and has been off of eliquis for 6 days now. Reports all of her other meds stayed the same after ER visit. Review of OSH records in Care Everywhere shows that she was seen at [facility] on January 10, 2025 for epistaxis. Her nose was packed. She was advised to hold Eliquis for 3 days and follow-up with ear nose and throat. Right Lower Leg Pain: - Tasha Sweet reports onset last night; described as a tired feeling. - Pain localized to the right ankle and lateral calf; does not extend to the knee. - Described as numb and weird. - Aggravated by ambulation; severe pain when walking. - No pain when sitting. - Denies back pain or pain in the back of the leg. - Denies known trauma or injury. - Frequently walks barefoot. Epistaxis: - Severe epistaxis occurred earlier this week, leading to discontinuation of Eliquis. - Epistaxis was managed with packing and cauterization. - No further episodes reported. Atrial Fibrillation: - On Eliquis for 9 years; currently held due to recent epistaxis. - Awaiting guidance from cardiology regarding resumption of medication. Followed by [facility]. No chest pain or shortness of breath. ROS Ears/Nose/Mouth/Throat: (-) epistaxis Musculoskeletal: (+) right leg pain with ambulation, (+) right leg fatigue, (-) leg swelling, (-) back pain Skin: (-) leg redness Neurological: (+) right leg numbness Objective BP 138/83 Pulse 61 Resp 16 Wt 72.8 kg (160 lb 7.9 oz) SpO2 94% BMI 30.33 kg/m? Physical Exam Vitals and nursing note reviewed. Constitutional: Appearance: Normal appearance. HENT: Head: Normocephalic and atraumatic. Eyes: Conjunctiva/sclera: Conjunctivae normal. Cardiovascular: Rate and Rhythm: Normal rate. Musculoskeletal: Comments: Some mild discomfort right [place] and right ankle sitting, increased with walking. No erythema warmth edema or cords on exam Skin: General: Skin is warm and dry. Neurological: General: No focal deficit present. Mental Status: She is alert and oriented to person, place, and time. 1. Right leg pain (M79.604) 2. Acute right ankle pain (M25.571) - Acute right lower extremity pain and paresthesia, worse with ambulation; no swelling, erythema, or trauma reported. - Differential includes musculoskeletal strain, DVT, or stress fracture. - Ordered right lower extremity X-ray to rule out stress fracture. - Ordered right lower extremity ultrasound to rule out DVT. - Advised use of supportive footwear and to avoid walking barefoot. Tylenol as needed. 3. 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 Atrial fibrillation, unspecified type (HCC) (I48.91) - Recent severe epistaxis requiring packing and cauterization; Eliquis held pending further guidance from cardiology. - Discussed risk of recurrent bleeding versus thromboembolic events (stroke, DVT) if anticoagulation is withheld. - Advised Tasha Sweet to contact cardiology directly regarding anticoagulation management. - Will send [facility] note to [facility] to notify them of the situation and expedite follow-up. Jessie Hurt APRN.CURTAIN CUTTER HAND Medical Decision Making: Problems: Low: Acute, uncomplic (more content not included)... Normal [facility] Emergency Department Summary on 01-10-2025 Emergency Department Summary [facility] Medical Records Department [address] [place] [address] Emergency Department Summary 01/10/25 MR#: [id number] Acct: [id number] Name: TASHA SWEET Rep #: [id number] : 1935 89 From: Ruslan Salguero DO PCP: Dr. Jadyn Bowden MD Status:[facility] ER Location: ED ADDENDUM by Dr. Lonnie Santana DO on 01/10/25 at 0856 Care of the patient was turned over to me pending reevaluation after nasal packing. Patient had no further bleeding on reevaluation. Case was discussed with Dr. Corado. He recommended stopping the Eliquis. He will have the patient follow-up in his office on Tuesday. Patient was given a prescription for Keflex to cover for sinusitis. Patient and family understood and were agreeable with the plan. All questions were answered. 01/10/25 0856 Cosigner Signature (if applicable): cc: Dr. Jadyn Bowden MD * Signed HPI History of Present Illness Chief Complaint: Nosebleed Informant: patient, family and EMS Narrative Narrative: Patient is an 89-year-old female with past medical history of hypertension hyperlipidemia and paroxysmal atrial fibrillation currently on Eliquis. She states she was seen a few days ago by Dr. Mathis in the ENT office and had both right and left nostrils cauterized. Patient states she has been doing well since that time and taking all of her medication as directed. She states yesterday she took her Eliquis in the morning but not her evening dose. She states she went to bed and then woke up around 4/4:30 with sensation of something dripping out of her nose and on the back of her throat and when she went to the bathroom noticed it was blood. 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 Pure hypercholesterolemia Diabetes mellitus type II, controlled PAF (paroxysmal atrial fibrillation) Lichen planus Home Medications ???Medication ???Instructions ???Recorded ???Last Taken ???Type cyanocobalamin (vitamin B-12) 1,000 mcg PO DAILY SUPPLEMENT 11/0909/25/19 History 1,000 mcg tablet sulfasalazine 500 mg tablet 500 mg PO Q6H PRN PRN SKIN 0 09/25/19 History cholecalciferol (vitamin D3) 25 5,000 unit PO DAILY PRN SUPPLEMENT 02/16/24 Unknown History mcg (1,000 unit) tablet vitamins A,C,N-byhw-zozqwu 4,296 1 cap PO QDAY 02/16/24 Unknown His tory mcg-226 mg-90 mg capsule (PreserVision AREDS) apixaban 5 mg tablet 5 mg PO BID #180 tabs 08/06/24 Unk nown Rx metoprolol tartrate 100 mg tablet 100 mg PO BID heart #180 tabs Unknown Rx atorvastatin 40 mg tablet 40 mg PO QDAY #90 tabs 09/04/24 Un known Rx furosemide 40 mg tablet 40 mg PO QDAY #90 tabs 09/04/24 Un known Rx losartan 100 mg tablet 100 mg PO QAM #90 tabs 09/04/24 Un known Rx amlodipine 5 mg tablet 5 mg PO QHS #90 tabs 09/13/24 Unkn own Rx potassium chloride 8 mEq 8 meq PO DAILY #90 caps 11/07/24 U nknown Rx capsule,extended release Allergy/AdvReac Type Severity Reaction Status Date / Time codeine AdvReac Nausea Verified 01/10/25 05:11 lisinopril AdvReac Cough Verified 01/10/25 05:11 Family History Mother Hypertension Heart disease Diabetes Father Diabetes Hypertension Sister Hypertension Diabetes Sister Diabetes Hypertension Sister Diabetes Hypertension Sister Diabetes Hypertension Surgical History History of hemorrhoidectomy ( 10/2019) History of colonoscopy ( 09/2019) History of total hysterectomy History of repair of rotator cuff History of bilateral oophorectomy Presence of coronary angioplasty implant and graft ( 06/20/15) Social History Smoking Status: Never smoker alcohol intake: never substance use type: does not use caffeine: No ROS ROS ED Constitutional Constitutional ED: Denies chills or fever(s) ENT ENT ED: Reports other Details: Positive nosebleed ; Denies sore throat Cardiovascular Cardiovascular: Denies chest pain, palpitations or racing heartbeat Respiratory/Chest Respiratory/Chest: Reports cough; Denies dyspnea Gastrointestinal Gastrointestinal: Denies abdominal pain, diarrhea, nausea or vomiting Musculoskeletal Musculoskeletal: Denies neck pain Integument (more content not included)... Normal [facility] Anion gap in Serum or Plasma Ordered By: Rick Bermudez on 12-28-2024 Anion gap [Moles/Vol] 13 mmol/L 5-15 [facility] BUN/creatinine ratioOrdered By: Rick Bermudez on 12-28-2024 Urea nitrogen/Creatinine [Mass ratio] 22.3 mg/mg High - [facility] Basic Metabolic Profile (BMP )on 12-28-2024 BUN/CRE 22.3 RATIO [place] [address]- [facility] Comment on above: Performed By: #### L 500.2500 #### [facility] [address] [place], [address] Calcium [Mass/Vol] 9.5 mg/dL Normal 7.6-11.0 [facility] Comment on above: Performed By: #### L 500.2500 #### [facility] [address] [facility] [address] Chloride [Moles/Vol] 106 mmol/L Normal 98-108 [facility] Comment on above: Performed By: #### L 500.2500 #### [facility] [address] [place], [address] CO2 [Moles/Vol] 22.3 mmol/L Normal 21.0-32.0 [facility] Comment on above: Performed By: #### L 500.2500 #### [facility] [address] [place], [address] Creatinine [Mass/Vol] 1.14 mg/dL Normal 0.70-1.20 [facility] Comment on above: Performed By: #### L 500.2500 #### [facility] [address] [place], [address] GAP 13 Normal 5-15 [facility] Comment on above: Performed By: #### L 500.2500 #### [facility] [address] [place], [address] GFR/1.73 sq M.predicted among non-blacks MDRD (S/P/Bld) [Vol rate/Area] 46 mL/min/{1.73_m2} Low >60 [facility] Comment on above: Result Comment: mL/m in/1.73m2 CKD-EPI Creatinine Equation (2020) Performed By: #### L 500.2500 #### [facility] [address] [place], [address] Glucose [Mass/Vol] 152 mg/dL High 70-99 [facility] Comment on above: Performed By: #### L 500.2500 #### [facility] [address] [place], [address] Potassium [Moles/Vol] 3.9 mmol/L Normal 3.3-5.1 [facility] Comment on above: Performed By: #### L 500.2500 #### [facility] [address] [place], [address] Sodium [Moles/Vol] 142 mmol/L Normal 133-145 [facility] Comment on above: Performed By: #### L 500.2500 #### [facility] [address] [place], [address] Urea nitrogen [Mass/Vol] 25 mg/dL High 4-19 [facility] Comment on above: Performed By: #### L 500.2500 #### [facility] [address] [place], [address] Carbon dioxide, total [Moles /volume] in Central venous bloodOrdered By: Rick Bermudez on 12-28-2024 CO2 [Moles/Vol] 22.3 mmol/L 21.0-32.0 [facility] Cardiology Visit Reporton Cardiology Visit Report [facility] [address] [place], [place] [address] OFFICE VISIT Date of Service: 12/28/24 MR#: [id number] Acct: [id number] Name: TASHA SWEET Rep #: [id number] : 1935 Provider: NIKOS de la o Age/Sex: 89/F Location: [facility] Status: Signed HPI HPI History [...] Oximetry (%) 97 Intake Visit Reasons: Epitaxis Manager Of Product Required: No Is patient in pain?: No Allergies codeine Adverse Reaction (Verified 12/28/24 12:14) Nausea lisinopril Adverse Reaction (Verified 12/28/24 12:14) Cough Medications ???Medication ???Instructions ???Recorded ???Confirmed ???Type cyanocobalamin (vitamin B-12) 1,000 mcg PO DAILY SUPPLEMENT 11/0912/28/24 History 1,000 mcg tablet sulfasalazine 500 mg tablet 500 mg PO Q6H PRN PRN SKIN 0 12/28/24 History cholecalciferol (vitamin D3) 25 5,000 unit PO DAILY PRN SUPPLEMENT 02/16/24 12/28/24 History mcg (1,000 unit) tablet vitamins A,C,C-tept-wjmlkf 4,296 1 cap PO QDAY 02/16/24 12/28/24 [...] PFSH Medical History Atherosclerotic heart disease of ek[place] coronary artery without angina pectoris Diabetes mellitus [...] syncope, fr (more content not included)... Normal [facility] Chloride assayOrdered By: Asaf Bermudez on 12-28-2024 Chloride [Moles/Vol] 106 mmol/L 98-108 [facility] Glomerular filtration rate ( GFR) estimation/1.73 sq m using serum, plasma, or whole bOrdered By: Rick Bermudez on 12-28-2024 GFR/1.73 sq M.predicted among non-blacks MDRD (S/P/Bld) [Vol rate/Area] 46 mL/min/{1.73_m2} Low >60 [facility] Comment on above: mL/min/1.73m2 CKD-EP I Creatinine Equation (2020) Potassium measurement (mass/ volume)Ordered By: Rick Bermudez on 12-28-2024 Potassium (Unsp spec) [Mass/Vol] 3.9 mmol/L 3.3-5.1 [facility] Serum creatinine measurement (mass/volume)Ordered By: Rick Bermudez on 12-28-2024 Creatinine [Mass/Vol] 1.14 mg/dL 0.70-1.20 [facility] Serum glucose measurement (m ass/volume)Ordered By: Rick Bermudez on 12-28-2024 Glucose [Mass/Vol] 152 mg/dL High 70-99 [facility] Serum or plasma calcium wu urement (mass/volume)Ordered By: Rick Aidan on 12-28-2024 Calcium [Mass/Vol] 9.5 mg/dL 7.6-11.0 [facility] Serum or plasma urea nitroge n measurement (mass/volume)Ordered By: Rick Aidan on 12-28-2024 Urea nitrogen [Mass/Vol] 25 mg/dL High 4-19 [facility] Sodium levelOrdered By: Yousuf ad Aidan on 12-28-2024 Sodium [Moles/Vol] 142 mmol/L 133-145 [facility] CNPNon 11-29-2024 CNPN Telephone (PEGGY) TASHA SWEET ([id number]) 1935 F Date Time Provider Department 11/29/24 LUIS AVINA During your visit today, we recorded the following information about you: Luis Avina MSW 11/29/2024 11:29 AM Signed Patient spoke with Reji and noted that she is going to be getting approximately 4 hours a month light housekeeping and meal plan assistance. Patient notes that her insurance told her that if a forensic social worker places a prior auth then viseto plan would pay for home theater experience expert. This Sw noted that she has not been able to find any home theater experience expert agencies in [place] that are in network with viseto plan. Sw can work on calling patient Medicare plan and see if they were actually referring to [facility] and not home theater experience expert. Fabian Martínez notes that they do not work with [employer] so would not be able to do anything with billing for home theater experience expert services. Luis Avina MSW 12/03/2024 11:35 AM Signed Sw tried to call patient [employer] plan to ask about home theater experience expert coverage. Sw was unable to connect with a signs sales representative. Sw will try call another time. Luis Avina, BEER STILL RUNNER COMPOUNDER 12/05/2024 10:08 AM Signed Sw tried call again to [facility]. System notes patient ID that SW stated was not a correct ID. [employer] system would not allow for Sw to speak with signs sales representative. Sw called and left patient message to return SW call to discuss. Luis Avina, BEER STILL RUNNER COMPOUNDER 12/10/2024 12:06 PM Signed Sw spoke with [...] with cooking and cleaning. Sw noted that [facility] told her that they do not have a contract with [employer] for home care assistance. Sw also noted that Sw called [employer] and was having issues with placing patient Member ID and speaking with a signs sales representative. Patient notes that the next time [employer] calls her that she will let them know that in her area she has not found any home theater experience expert agencies that contract with them. Patient told [...] tablet by mouth two times a day. ([facility]) - losartan (COZAAR) 25 mg tablet Take 1 tablet by mouth once daily. ([facility]) - metoprolol tartrate, short acting, [...] HYPERLIPIDEMIA [E78.2] (more content not included)... Normal [facility] CNCOon 11-12-2024 CNCO Letter Text Normal [facility] CNPLaxmi 11-12-2024 C[facility] Telephone [facility] KEETASHA ([id number]) 1935 F Date Time Provider Department 11/12/24 LUIS AVINA During your visit today, we recorded the following information about you: Luis Avina, BEER STILL RUNNER COMPOUNDER 11/12/2024 10:05 AM Signed Patient and Sw spoke regarding light housekeeping and meal prep needs. Patient notes that she believes that her insurance would help with the cost of home theater experience expert assistance. This Sw notes that she has not had many medicare advantage plans help with cost of aides. Sw noted Robbin Lowe may be of assistance. Chrissy is a [employer] Advisor and helps link folks with home care, assisted living, customer advocacy manager care, elder law services. Patient notes that would be helpful. Sw also notes that she can mail patient [facility] Older Adult Resource Guide and Collections Assistant Agency brochures. Sw will write Sw number down on guide for any further resource needs. KavitaLuis galeano, BEER STILL RUNNER COMPOUNDER 11/12/2024 1:30 PM Signed Sw spoke with Mira Mcmahan and she is going to reach out to patient for home theater experience expert resources. Allergies As of Date: 11/12/2024 Noted [...] tablet by mouth two times a day. ([facility]) - losartan (COZAAR) 25 mg tablet Take 1 tablet by mouth once daily. ([facility]) - metoprolol tartrate, short acting, (LOPRESSOR) 100 mg tablet Take 1 tablet by mouth two times a day. ([facility]) - traZODone (DESYREL) 50 mg [...] Encounter Status:Closed by LUIS AVINA on 11/12/24 Normal [facility] Bacteria Ur Culton 5 Bacteria identified Cx [...] , Intermediate >32 , Resistant >64 Abnormal [facility] Comment on above: Performed By: #### 6 30-4 ####[facility] [id number] [address] [place] CNOVon 11-08-2024 CNOV Office Visit (INTMWS ) TASHA SWEET ([id number]) 1935 F Date Time Provider Department 11/08/24 11:40 AM JESSIE HURT During your visit today, we recorded the following information about you: Pulse Respiration Blood pressure Weight 62/minute 16/minute 155/75 74 kg Jessie Hurt APRN.[facility] 11/08/2024 12:31 PM Signed Subjective Patient ID: Tsaha is a 89 year old female who [...] [address] Hays at [facility]. Macular Degeneration: - Receiving intravitreal injections. [...] Referred to Dr. Nani Neal, urogynecologist in [place], for further evaluation and management. Alternatively, Dr. Suyapa Galan is available locally. - Discussed potential need for imaging studies such as ultrasound to assess bladder function. - has had a bladder suspension approximately [address] Hays at [facility] - Advised to continue adequate hydration. [...] to her own illness. - Referred to Luis forensic social worker, to explore available community services and support options. - Discussed potential future needs for assisted living or increased home support. Consult REJI Hurt APRN.[employer] Medical Decision Making: Problems: Moderate: 1+ chronic [...] Self-care deficit [Z78.9] Order(s):UA DIP, URINE (POC) [] Order #: [id number]. #:[id number] BACTERIAL CULTURE, URINE [SQURCUL] Order #: [id number]. #:[id number] cephALEXin (KEFLEX) 500 mg capsuleTake 1 capsule by mouth three times a day. Take with foodDisp: 21 capsuleRfl: 0 CONSULT TO FEMALE UROLOGY/URO GYNECOLOGY [21300208] Order #: [id number]: 1 FUTURE PRIMARY CARE SOCIAL WORK CONSULT [2532025] Order #: [id number]: 1 PRIMARY CARE SOCIAL WORK CONSULT [5657480] Order #: [id number]: 1 Prescriptions as of 11/08/2024 - cephALEXin [...] mg table (more content not included)... Normal [facility] UA DIP, URINE (POC)on 2024 BILIRUBIN UA (POCT) Negative Negative [facility] CLARITY UA (POCT) Clear [place] COLOR UA (POCT) [place] [facility] GLUCOSE UA (POCT) 100 mg/dL Abnormal Negative [place] Hemoglobin Ql (U) Trace-intact Abnormal Negative [facility] Interpretation and review of laboratory results Abnormal [facility] KETONE UA (POCT) Negative Negative mg/dL [facility] LEUKOCYTES UA (POCT) Large Abnormal Negative [facility] NITRITE UA (POCT) Positive Abnormal Negative [place] PH UA (POCT) 6.5 4.5 - 8.0 [facility] Protein Ql (U) 100 mg/dL Abnormal Negative [facility] SPECIFIC GRAVITY UA (POCT) 1.01 1.005 - 1.030 [facility] UROBILINOGEN UA (POCT) 2 Abnormal Normal E.U./dL [facility] Location:[address], [place], [address] [facility] POINT OF CARE [facility] CNOVon 09-13-2024 CNOV Office Visit (INTMWS ) TASHA SWEET ([id number]) 1935 F Date Time Provider Department 09/13/24 9:40 AM JESSIE HURT INTMWS During your visit today, we recorded the following information about you: Temperature Pulse Respiration Blood pressure 98.7 degrees 64/minute 16/minute 121/77 Weight 74 kg Jessie Hurt APRN.[facility] 09/13/2024 10:11 AM Signed SUBJECTIVE Tasha Sweet [...] Declines RSV, COvid, Flu testing. Jessie Hurt APRN.[employer] Medical Decision Making: Problems: Low: Acute, uncomplicated [...] clear . AVOID eyes and eyelids. September up to 14 days per rash flare [...] tablet by mouth two times a day. ([facility]) - traZODone (DESYREL) 50 mg tablet Take 1 tablet by mouth at bedtime as needed (insomnia). - potassium chloride SR (PATIENCE (more content not included)... Normal [facility] Bacteria Ur Culton 5 Bacteria identified Cx [...] , Intermediate >32 , Resistant >64 Abnormal [facility] Comment on above: Performed By: #### 6 30-4 ####[facility] [id number] [place] [id number] [place] CNOVon 09-10-2024 CNOV Office Visit (INTMWS ) TASHA SWEET ([id number]) 1935 F Date Time Provider Department 09/10/24 12:00 PM JESSIE HURT INTMWS During your visit today, we recorded the following information about you: Pulse Respiration Blood pressure Weight 80/minute 16/minute 145/80 75 kg Jessie Hutr APRN.[employer] 09/10/2024 12:43 PM Signed SUBJECTIVE: RSV Vaccine(1 [...] 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 Urinary Tract Infection: [...] Take 1 tablet by mouth once daily. ([facility]) (Patient not taking: Reported on [...] Knee H (more content not included)... Normal [facility] CNPNon 09-10-2024 CNPN Telephone (INTMWS) TASHA SWEET ([id number]) 1935 F Date Time Provider Department 09/10/24 JADYN BOWDEN INTMWS During your visit today, we recorded the following information about you: Digna Ridley RN 09/10/2024 9:34 AM Signed Pt calling [...] Date Reviewed: 06/19/2024 Reviewed by: Jessie Hurt APRN.[employer] - Fully Assessed Reason for Visit: UTI [...] Take 1 tablet by mouth once daily. ([facility]) - metoprolol tartrate, short acting, [...] Status:Closed by DIGNA RIDLEY on 09/10/24 Normal [facility] UA DIP, URINE (POC)on 2024 BILIRUBIN UA (POCT) Negative Negative [facility] CLARITY UA (POCT) Clear [place] COLOR UA (POCT) [place] [facility] GLUCOSE UA (POCT) 100 mg/dL Abnormal Negative [place] Hemoglobin Ql (U) Trace-intact Abnormal Negative [facility] Interpretation and review of laboratory results Abnormal [facility] KETONE UA (POCT) Negative Negative mg/dL [facility] LEUKOCYTES UA (POCT) Small Abnormal Negative [facility] NITRITE UA (POCT) Positive Abnormal Negative [place] PH UA (POCT) 6.5 4.5 - 8.0 [facility] Protein Ql (U) Trace Abnormal Negative mg/dL [facility] SPECIFIC GRAVITY UA (POCT) 1.015 1.005 - 1.030 [facility] UROBILINOGEN UA (POCT) 1 Normal E.U./dL [facility] Location: [place], [address] [place] [address], [place], [place], [address] [place] [address] POINT OF CARE [facility] Office Visit Reporton 2024 Office Visit Report [facility] [address] [place] [address] OFFICE VISIT Date of Service: 08/17/24 MR#: [id number] Acct: [id number] Patient: TASHA SWEET Rep #: [id number] : 1935 Provider: Dr. Rick Bermudez MD Age/Sex: 88/F Location: [facility] Status: Signed Intake Vital Signs [...] higher than right. Please call patient at [phone] with recommendations. Took medications approximately one hour ago. Right arm: 179/79, pulse 73 Left arm: 169/88 08/08 121/74, pulse 74 165/87, pulse 76 08/09 139/68, pulse 76 08/11 163/72, pulse 58 08/16 145/68, pulse 76 Clinical Quality Measures Falls Risk Screening/Assistive Devices Have you fallen in the past year?: No 08/20/24 1237 Date ____ Rick Deleon Signature: Date ____ (if applicable) CC: Normal [facility] Anion gap in Serum or Plasma Ordered By: Rick Bermudez on 08-06-2024 Anion gap [Moles/Vol] 11 mmol/L 5- [facility] BUN/creatinine ratioOrdered By: Rick Bermudez on 08-06-2024 Urea nitrogen/Creatinine [Mass ratio] 16.5 mg/mg - [facility] Bilirubin, totalOrdered By: Rick Bermudez on 08-06-2024 Bilirubin [Mass/Vol] 0.53 mg/dL 0.00-1.30 [facility] Carbon dioxide, total [Moles /volume] in Central venous bloodOrdered By: Rick Bermudez on 08-06-2024 CO2 [Moles/Vol] 23.7 mmol/L 21.0-32.0 [facility] Cardiology Visit Reporton Cardiology Visit Report [facility] [address] [place] [address] OFFICE VISIT Date of Service: 08/06/24 MR#: [id number] Acct: [id number] Name: TASHA SWEET Rep #: [id number] : 1935 Provider: Dr. 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 Normal [facility] Chloride assayOrdered By: Asaf Bermudez on 08-06-2024 Chloride [Moles/Vol] 107 mmol/L 98-108 [facility] Comprehensive Metabolic Prof ilon 08-06-2024 Albumin [Mass/Vol] 4.1 g/dL Normal 3.4-4.8 [facility] Comment on above: Performed By: #### L 500.4050, L5.9520 #### [facility] Laboratory [address] [facility] [address] Albumin/Globulin [Mass ratio] 1.2 {ratio} Normal 0.9-2.4 [facility] Comment on above: Performed By: #### L 500.4050, L5.9520 #### [facility] [address] [facility] [address] ALK PHOS 135 U/L High 35-104 [facility] Comment on above: Performed By: #### L 500.4050, L5.9520 #### [facility] [address] [place], [address] ALT [Catalytic activity/Vol] 12 U/L Normal <=34 [facility] Comment on above: Performed By: #### L 500.4050, L5.9520 #### [facility] [address] [place], [address] AST [Catalytic activity/Vol] 18 U/L Normal <=31 [facility] Comment on above: Performed By: #### L 500.4050, L5.20 #### [facility] [address] [place], [address] Bilirubin [Mass/Vol] 0.53 mg/dL Normal 0.00-1.30 [facility] Comment on above: Performed By: #### L 500.4050, L5.9519 #### [facility] [address] [place], [address] BUN/CRE 16.5 RATIO Normal 10-20 [facility] Comment on above: Performed By: #### L 500.4050, L5.9519 #### [facility] [address] [place], [address] Calcium [Mass/Vol] 9.6 mg/dL Normal 7.6-11.0 [facility] Comment on above: Performed By: #### L 500.4050, L5.9519 #### [facility] [address] [place], [address] Chloride [Moles/Vol] 107 mmol/L Normal 98-108 [facility] Comment on above: Performed By: #### L 500.4050, L5.9519 #### [facility] [address] [place], [address] CO2 [Moles/Vol] 23.7 mmol/L Normal 21.0-32.0 [facility] Comment on above: Performed By: #### L 500.4050, L5.20 #### [facility] [address] [place], [address] Creatinine [Mass/Vol] 1.02 mg/dL Normal 0.70-1.20 [facility] Comment on above: Performed By: #### L 500.4050, L501.9520 #### [facility] [address] [place], [address] GAP 11 Normal 5-15 [facility] Comment on above: Performed By: #### L 500.4050, L501.9520 #### [facility] [address] [place], [address] GFR/1.73 sq M.predicted among non-blacks MDRD (S/P/Bld) [Vol rate/Area] 53 mL/min/{1.73_m2} Low >60 [facility] Comment on above: Result Comment: mL/m in/1.73m2 CKD-EPI Creatinine Equation (2020) Performed By: #### L 500.4050, L501.9520 #### [facility] [address] [place], [address] Globulin (S) [Mass/Vol] 3.4 g/dL Normal 2.2-4.2 [facility] Comment on above: Performed By: #### L 500.4050, L501.9520 #### [facility] [address] [place], [address] Glucose [Mass/Vol] 123 mg/dL High 70-99 [facility] Comment on above: Performed By: #### L 500.4050, L501.9520 #### [facility] [address] [place], [address] Potassium [Moles/Vol] 3.7 mmol/L Normal 3.3-5.1 [facility] Comment on above: Performed By: #### L 500.4050, L501.9520 #### [facility] [address] [place], [address] Sodium [Moles/Vol] 142 mmol/L Normal 133-145 [facility] Comment on above: Performed By: #### L 500.4050, L501.9520 #### [facility] [address] [place], [address] T PROT 7.5 g/dL Normal 5.9-8.4 [facility] Comment on above: Performed By: #### L 500.4050, L501.9520 #### [facility] [address] [place], [address] Urea nitrogen [Mass/Vol] 17 mg/dL Normal 4-19 [facility] Comment on above: Performed By: #### L 500.4050, L501.9520 #### [facility] [address] [place], [address] GFR/1.73 sq M.predicted basil g non-blacks MDRD (S/P/Bld) [Vol rate/Area]Ordered By: Rick Bermudez on 08-06-2024 Estimated GFR (MDRD) Non-Af Amer 53 Low >60 [facility] Comment on above: mL/min/1.73m2 CKD-EP I Creatinine Equation (2020) Laboratory - Chemistry and C hemistry - challengeOrdered By: Rick Bermudez on 08-06-2024 AST [Catalytic activity/Vol] 18 U/L <32 [facility] Potassium (Unsp spec) [Mass/ Vol]Ordered By: Rick Bermudez on 08-06-2024 Potassium [Moles/Vol] 3.7 mmol/L 3.3-5.1 [facility] Serum creatinine measurement (mass/volume)Ordered By: Rick Bermudez on 08-06-2024 Creatinine [Mass/Vol] 1.02 mg/dL 0.70-1.20 [facility] Serum globulin measurementOr dered By: Rick Bermudez on 08-06-2024 Globulin (S) [Mass/Vol] 3.4 g/dL 2.2-4.2 [facility] Serum glucose measurement (m ass/volume)Ordered By: Rick Bermudez on 08-06-2024 Glucose [Mass/Vol] 123 mg/dL High 70-99 [facility] Serum or plasma alanine palomino otransferase (ALT) measurementOrdered By: Rick Bermudez on 08-06-2024 ALT [Catalytic activity/Vol] 12 U/L <35 [facility] Serum or plasma albumin wu urement (mass/volume)Ordered By: Rick Bermudez on 08-06-2024 Albumin [Mass/Vol] 4.1 g/dL 3.4-4.8 [facility] Serum or plasma albumin/glob ulin mass ratioOrdered By: Rick Bermudez on 08-06-2024 Albumin/Globulin [Mass ratio] 1.2 {ratio} 0.9-2.4 [facility] Serum or plasma alkaline tra sphatase measurementOrdered By: Rick Bermudez on 08-06-2024 ALP [Catalytic activity/Vol] 135 U/L High 35-104 [facility] Serum or plasma calcium wu urement (mass/volume)Ordered By: Rick Bermudez on 08-06-2024 Calcium [Mass/Vol] 9.6 mg/dL 7.6-11.0 [facility] Serum or plasma urea nitroge n measurement (mass/volume)Ordered By: Rick Bermudez on 08-06-2024 Urea nitrogen [Mass/Vol] 17 mg/dL 4-19 [facility] Sodium levelOrdered By: Yousuf Bermudez on 08-06-2024 Sodium [Moles/Vol] 142 mmol/L 133-145 [facility] TSH DL <= 0.005 mIU/L QnOrde red By: Rick Bermudez on 08-06-2024 Thyroid Stimulating Hormone (TSH) 1.250 uIU/mL 0.300-4.20 0 [facility] Thyroid Stim Hormone (TSH)on 08-06-2024 TSH 1.250 uIU/mL Normal 0.300-4.20 0 [facility] Comment on above: Performed By: #### L 500.4050, L501.9520 #### [facility] Laboratory [facility] [address] [place], [place], [id number] Total proteinOrdered By: Cammy Bermudez on 08-06-2024 Protein [Mass/Vol] 7.5 g/dL 5.9-8.4 [facility] Telephone (INTMWS) TASHA SWEET ([id number]) 1935 F Date Time Provider Department 08/02/24 JESSIE HURT INTMWS During your visit today, we recorded the following information about you: Jessie Hurt APRN.[employer] 08/02/2024 8:23 AM Signed Check to see if having UTI symptoms, can send in a script for treatment if still with symptoms. Yumiko Aleman LPN 08/02/2024 8:50 AM Signed Spoke with patient and she states she if feeling great. No UTI symptoms, states last prescription really worked. Allergies As of Date: 08/02/2024 Noted Allergy Reaction CODEINE 09/12/2007 11 - Vomiting LISINOPRIL 11/25/2010 3 - Cough Date Reviewed: 06/19/2024 Reviewed by: Jessie Hurt APRN.[employer] - Fully Assessed Reason for Visit: Results [...] tablet by mouth two times a day. ([facility]) - losartan (COZAAR) 25 mg tablet Take 1 tablet by mouth once daily. ([facility]) - metoprolol tartrate, short acting, (LOPRESSOR) 100 mg tablet Take 1 tablet by mouth two times a day. ([facility]) - traZODone (DESYREL) 50 mg [...] Encounter Status:Closed by YUMIKO ALEMAN on 08/02/24 [facility] Bacteria Ur Culton 5 Bacteria identified Cx Nom (U) ORGANISM ID: 1 >=100,000 CFU/ml Proteus mirabilis Call the lab ([phone]) within 72 h if susceptibility testing for [...] , Intermediate >32 , Resistant >64 Abnormal [facility] Comment on above: Performed By: #### 6 30-4 ####[facility] LABCLIA [id number] [facility] [id number] [place], [place] [id number] [facility] CNPNon 06-29-2024 CNPN Telephone (INTMWS) TASHA SWEET ([id number]) 1935 F Date Time Provider Department 06/29/24 JADYN BOWDEN INTWS During your visit today, [...] UA and culture tonight. Ángela Santillan RN Allergies As of Date: 06/29/2024 Noted Allergy Reaction CODEINE 09/12/2007 11 - Vomiting LISINOPRIL 11/25/2010 3 - Cough Date Reviewed: 06/19/2024 Reviewed by: Jessie Hurt APRN.[employer] - Fully Assessed Reason for Visit: Results [95] Primary Visit Diagnosis:UTI symptoms [R39.9] Order(s):BACTERIAL CULTURE, URINE [SQURCUL] Order #: [id number] FUTURE URINALYSIS, WITH MICROSCOPIC [SQUAWMIC] Order #: [id number] FUTURE cephALEXin (KEFLEX) 500 mg capsuleTake 1 [...] tablet by mouth two times a day. ([facility]) - losartan (COZAAR) 25 mg tablet Take 1 tablet by mouth once daily. ([facility]) - metoprolol tartrate, short acting, (LOPRESSOR) 100 mg tablet Take 1 tablet by mouth two times a day. ([facility]) - traZODone (DESYREL) 50 mg [...] mural th (more content not included)... Normal [facility] Urinalysis complete panel (U )on 06-29-2024 BACTERIA UL 5265.6 uL High Negative [facility] Comment on above: Order Comment: Speci men Type: URINE SPECIMENOrdering Facility: [facility] Address: [address] [place] [address] Performed By: #### 2 4356-8 ####[facility] LABCLIA [id number] [place] [address] [place] Bilirubin Ql (U) Negative Normal Negative [facility] Comment on above: Order Comment: Speci men Type: URINE SPECIMENOrdering Facility: [facility] Address: [address] [place] [address] Performed By: #### 2 4356-8 ####[facility] LABCLIA [id number] [place] [address] [place] Clarity (Unsp spec) Clear Normal Clear [facility] Comment on above: Order Comment: Speci men Type: URINE SPECIMENOrdering Facility: [facility] Address: [address] [place] [address] Performed By: #### 2 4356-8 ####[facility] LABIA [id number] [place] [address] [place] Color (U) [place] Abnormal Yellow [facility] Comment on above: Order Comment: Speci men Type: URINE SPECIMENOrdering Facility: [facility] Address: [address] [place] [address] Performed By: #### 2 4356-8 ####[facility] LABIA [id number] [place] [address] [place] Epithelial cells LM.HPF (Urine sed) [#/Area] Few Normal [facility] Comment on above: Order Comment: Speci men Type: URINE SPECIMENOrdering Facility: [facility] Address: [address] [place] [address] Performed By: #### 2 4356-8 ####[facility] LABCLIA [id number] [place] [address] [place] Glucose Test strip (U) [Mass/Vol] Negative Normal Negative [facility] Comment on above: Order Comment: Speci men Type: URINE SPECIMENOrdering Facility: [facility] Address: [address] [place] [address] Performed By: #### 2 4356-8 ####[facility] LABCLIA [id number] [place] [address] [place] Hemoglobin Ql (U) Trace Abnormal Negative [facility] Comment on above: Order Comment: Speci men Type: URINE SPECIMENOrdering Facility: [facility] Address: [address] [place] [address] Performed By: #### 2 4356-8 ####[facility] LABCLIA [id number] [place] [address] [place] Hyaline casts (Urine sed) [#/Area] 1-3 /LPF Abnormal 0 /LPF [facility] Comment on above: Order Comment: Speci men Type: URINE SPECIMENOrdering Facility: [facility] Address: [address] [place] [address] Performed By: #### 2 4356-8 ####[facility] LABCLIA [id number] [place] [address] [place] Ketones Ql (U) Negative Normal Negative [facility] Comment on above: Order Comment: Speci men Type: URINE SPECIMENOrdering Facility: [facility] Address: [address] [place] [address] Performed By: #### 2 4356-8 ####[facility] LABCLIA [id number] [place] [address] [place] Leukocyte esterase Test strip Ql (U) 3+ Abnormal Negative [facility] Comment on above: Order Comment: Speci men Type: URINE SPECIMENOrdering Facility: [facility] Address: [address] [place] [address] Performed By: #### 2 4356-8 ####[facility] [facility] LABCLIA [id number] [place] [address] [place] Nitrite Ql (U) Negative Normal Negative [facility] Comment on above: Order Comment: Speci men Type: URINE SPECIMENOrdering Facility: [facility] Address: [address] [place] [address] Performed By: #### 2 4356-8 ####[facility] LABCLIA [id number] [place] [address] [place] pH (U) 6.0 [pH] Normal <8.5 [facility] Comment on above: Order Comment: Speci men Type: URINE SPECIMENOrdering Facility: [facility] Address: [address] [place] [address] Performed By: #### 2 4356-8 ####[facility] LABCLIA [id number] [place] [address] [place] Protein (U) [Mass/Vol] Trace Abnormal Negative [facility] Comment on above: Order Comment: Speci men Type: URINE SPECIMENOrdering Facility: [facility] Address: [address] [place] [address] Performed By: #### 2 4356-8 ####[facility] LABCLIA [id number] [place] [address] [place] RBC LM.HPF (Urine sed) [#/Area] 0-2 /HPF Normal 0-2 /HPF [facility] Comment on above: Order Comment: Speci men Type: URINE SPECIMENOrdering Facility: [facility] Address: [address] [place] [address] Performed By: #### 2 4356-8 ####[facility] LABCLIA [id number] [place] [address] [place] Specific gravity (U) [Rel density] 1.013 Normal 1.005-1.03 0 [facility] Comment on above: Order Comment: Speci men Type: URINE SPECIMENOrdering Facility: [facility] Address: [address] [place] [address] Performed By: #### 2 4356-8 ####[facility] LABIA [id number] [place] [address] [place] Urobilinogen Ql (U) 1.0 EU/dL Normal 0.2-1.0 EU/dL [facility] Comment on above: Order Comment: Speci men Type: URINE SPECIMENOrdering Facility: [facility] Address: [address] [place] [address] Performed By: #### 2 4356-8 ####[facility] [id number] [place] [address] [place] WBC LM.HPF (Urine sed) [#/Area] /[HPF] Abnormal 0-5 /HPF [facility] Comment on above: Order Comment: Speci men Type: URINE SPECIMENOrdering Facility: [facility] Address: [address] [place] [address] Performed By: #### 2 4356-8 ####[facility] [id number] [place] [address] [place] 25(OH)D3 [facility] 2024 25-hydroxyvitamin D3 [Mass/Vol] 23.4 ng/mL Low 31.0-80.0 [facility] Comment on above: Order Comment: Speci men Type: BLOOD SPECIMENOrdering Facility: [facility] Address: [address] [place] [address] Result Comment: Clas sification of 25 [place] Vitamin D status: Deficiency/Insufficiency: < or = 30 ng/ml. Sufficiency/Optimal Levels: 31-80 ng/mL Toxicity: > 100 ng/mL. Test performed by chemiluminescent immunoassay. Performed By: #### 1 989-3 ####[facility] LABCLIA [id number] [place] [address] [place] ALBUMIN/CREATININE RATIO, UR INEon 06-19-2024 Albumin DL <= 20 mg/L (U) [Mass/Vol] 14.5 mg/L Normal [facility] Comment on above: Order Comment: Speci men Type: URINE SPECIMENOrdering Facility: [facility] Address: [address] [place] [address] Performed By: #### U ACR ####[facility] LABCLIA [id number] [place] [address] [place] Albumin/Creatinine (U) [Mass ratio] 28 mg/g Normal <30 [facility] Comment on above: Order Comment: Speci men Type: URINE SPECIMENOrdering Facility: [facility] Address: [address] [place] [address] Result Comment: Adul t Male and Female Nephrotic Criteria: <30 mg/g is considered normal to mildly increased 30-300 mg/g is considered moderately increased >300 mg/g is considered severely increased KDIGO. (2013). KDIGO 2012 Clinical Practice Guideline for the Evaluation and Management of Chronic Kidney Disease. Official Journal of the International Society of Nephrology, 3(1), 1-150. Performed By: #### U ACR ####[facility] LABCLIA [id number] [place] [address] [place] Creatinine (U) [Mass/Vol] 51.6 mg/dL Normal 20.0-300.0 [facility] Comment on above: Order Comment: Speci men Type: URINE SPECIMENOrdering Facility: [facility] Address: [address] [place] [address] Performed By: #### U ACR ####[facility] LABCLIA [id number] [place] [address] [place] CBC W Auto Differential pane l (Bld)on 01-28-2025 Basophils (Bld) [#/Vol] 10*3/uL Normal <0.11 [facility] Comment on above: Order Comment: Speci men Type: BLOOD SPECIMENOrdering Facility: [facility] Address: [address] [place] [address] Performed By: #### 5 7021-8 ####[facility] LABCLIA [id number] [place] [address] [place] Basophils/100 WBC (Bld) 0.2 % Normal [facility] Comment on above: Order Comment: Speci men Type: BLOOD SPECIMENOrdering Facility: [facility] Address: [address] [place] [address] Performed By: #### 5 7021-8 ####[facility] LABCLIA [id number] [place] [address] [place] Differential cell count method Nom (Bld) Auto Normal [facility] Comment on above: Order Comment: Speci men Type: BLOOD SPECIMENOrdering Facility: [facility] Address: [address] [place] [address] Performed By: #### 5 7021-8 ####[facility] LABCLIA [id number] [place] [address] [place] Eosinophils (Bld) [#/Vol] 0.34 10*3/uL Normal <0.46 [facility] Comment on above: Order Comment: Speci men Type: BLOOD SPECIMENOrdering Facility: [facility] Address: [address] [place] [address] Performed By: #### 5 7021-8 ####[facility] LABCLIA [id number] [place] [address] [place] Eosinophils/100 WBC (Bld) 3.8 % Normal [facility] Comment on above: Order Comment: Speci men Type: BLOOD SPECIMENOrdering Facility: [facility] Address: [address] [place] [address] Performed By: #### 5 7021-8 ####[facility] LABCLIA [id number] [place] [address] [place] Erythrocyte distribution width (RBC) [Ratio] 14.0 % Normal 11.5-15.0 [facility] Comment on above: Order Comment: Speci men Type: BLOOD SPECIMENOrdering Facility: [facility] Address: [address] [place] [address] Performed By: #### 5 7021-8 ####[facility] LABIA [id number] [place] [address] [place] Hematocrit (Bld) [Volume fraction] 40.9 % Normal 36.0-46.0 [facility] Comment on above: Order Comment: Speci men Type: BLOOD SPECIMENOrdering Facility: [facility] Address: [address] [place] [address] Performed By: #### 5 7021-8 ####[facility] LABIA [id number] [place] [address] [place] Hemoglobin (Bld) [Mass/Vol] 12.8 g/dL Normal 11.5-15.5 [facility] Comment on above: Order Comment: Speci men Type: BLOOD SPECIMENOrdering Facility: [facility] Address: [address] [place] [address] Performed By: #### 5 7021-8 ####[facility] LABIA [id number] [place] [address] [place] Immature granulocytes (Bld) [#/Vol] 10*3/uL Normal <0.10 [facility] Comment on above: Order Comment: Speci men Type: BLOOD SPECIMENOrdering Facility: [facility] Address: [address] [place] [address] Performed By: #### 5 7021-8 ####[facility] LABIA [id number] [place] [address] [place] Immature granulocytes/100 WBC (Bld) 0.2 % Normal [facility] Comment on above: Order Comment: Speci men Type: BLOOD SPECIMENOrdering Facility: [facility] Address: [address] [place] [address] Performed By: #### 5 7021-8 ####[facility] LABCLIA [id number] [place] [address] [place] Lymphocytes (Bld) [#/Vol] 2.85 10*3/uL Normal 1.00-4.00 [facility] Comment on above: Order Comment: Speci men Type: BLOOD SPECIMENOrdering Facility: [facility] Address: [address] [place] [address] Performed By: #### 5 7021-8 ####[facility] LABCLIA [id number] [place] [address] [place] Lymphocytes/100 WBC (Bld) 31.7 % Normal [facility] Comment on above: Order Comment: Speci men Type: BLOOD SPECIMENOrdering Facility: [facility] Address: [address] [place] [address] Performed By: #### 5 7021-8 ####[facility] LABCLIA [id number] [place] [address] [place] MCH (RBC) [Entitic mass] 30.8 pg Normal 26.0-34.0 [facility] Comment on above: Order Comment: Speci men Type: BLOOD SPECIMENOrdering Facility: [facility] Address: [address] [place] [address] Performed By: #### 5 7021-8 ####[facility] LABCLIA [id number] [place] [address] [place] MCHC (RBC) [Mass/Vol] 31.3 g/dL Normal 30.5-36.0 [facility] Comment on above: Order Comment: Speci men Type: BLOOD SPECIMENOrdering Facility: [facility] Address: [address] [place] [address] Performed By: #### 5 7021-8 ####[facility] LABCLIA [id number] [place] [address] [place] MCV (RBC) [Entitic vol] 98.6 fL Normal 80.0-100.0 [facility] Comment on above: Order Comment: Speci men Type: BLOOD SPECIMENOrdering Facility: [facility] Address: [address] [place] [address] Performed By: #### 5 7021-8 ####[facility] LABCLIA [id number] [place] [address] [place] Monocytes (Bld) [#/Vol] 0.82 10*3/uL Normal <0.87 [facility] Comment on above: Order Comment: Speci men Type: BLOOD SPECIMENOrdering Facility: [facility] Address: [address] [place] [address] Performed By: #### 5 7021-8 ####[facility] LABIA [id number] [place] [address] [place] Monocytes/100 WBC (Bld) 9.1 % Normal [facility] Comment on above: Order Comment: Speci men Type: BLOOD SPECIMENOrdering Facility: [facility] Address: [address] [place] [address] Performed By: #### 5 7021-8 ####[facility] LABCLIA [id number] [place] [address] [place] Neutrophils (Bld) [#/Vol] 4.94 10*3/uL Normal 1.45-7.50 [facility] Comment on above: Order Comment: Speci men Type: BLOOD SPECIMENOrdering Facility: [facility] Address: [address] [place] [address] Performed By: #### 5 7021-8 ####[facility] LABCLIA [id number] [address] [id number] [address] [place] Neutrophils/100 WBC (Bld) 55.0 % Normal [facility] Comment on above: Order Comment: Speci men Type: BLOOD SPECIMENOrdering Facility: [facility] Address: [address] [place] [address] Performed By: #### 5 7021-8 ####[facility] LABCLIA [id number] [place] [address] [place] Nucleated RBC (Bld) [#/Vol] 10*3/uL Normal <0.01 [facility] Comment on above: Order Comment: Speci men Type: BLOOD SPECIMENOrdering Facility: [facility] Address: [address] [place] [address] Performed By: #### 5 7021-8 ####[facility] LABCLIA [id number] [place] [address] [place] Nucleated RBC/100 WBC (Bld) [Ratio] 0.0 /100 WBC Normal [facility] Comment on above: Order Comment: Speci men Type: BLOOD SPECIMENOrdering Facility: [facility] Address: [address] [place] [address] Performed By: #### 5 7021-8 ####[facility] LABCLIA [id number] [place] [address] [place] Platelet mean volume (Bld) [Entitic vol] 11.6 fL Normal 9.0-12.7 [facility] Comment on above: Order Comment: Speci men Type: BLOOD SPECIMENOrdering Facility: [facility] Address: [address] [place] [address] Performed By: #### 5 7021-8 ####[facility] LABCLIA [id number] [place] [address] [place] Platelets (Bld) [#/Vol] 213 10*3/uL Normal 150-400 [facility] Comment on above: Order Comment: Speci men Type: BLOOD SPECIMENOrdering Facility: [facility] Address: [address] [place] [address] Performed By: #### 5 7021-8 ####[facility] LABCLIA [id number] [place] [id number] [place] RBC (Bld) [#/Vol] 4.15 10*6/uL Normal 3.90-5.20 [facility] Comment on above: Order Comment: Speci men Type: BLOOD SPECIMENOrdering Facility: [facility] Address: [address] [place] [address] Performed By: #### 5 7021-8 ####[facility] LABIA [id number] [place] [address] [place] WBC (Bld) [#/Vol] 8.99 10*3/uL Normal 3.70-11.00 [facility] Comment on above: Order Comment: Speci men Type: BLOOD SPECIMENOrdering Facility: [facility] Address: [address] [place] [address] Performed By: #### 5 7021-8 ####[facility] LABIA [id number] [address] [place] CNOVon 06-19-2024 CNOV Office Visit (INTMWS ) TASHA SWEET ([id number]) 1935 F Date Time Provider Department 06/19/24 1:00 PM JESSIE HURT INTMWS During your visit today, we recorded the following information about you: Pulse Respiration Blood pressure Weight 76/minute 16/minute 121/77 76 kg Jessie Hurt, FITTER MACHINIST.CURTAIN CUTTER HAND 06/19/2024 1:37 PM Signed SUBJECTIVE: RSV Vaccine(1 [...] facial skin cancers removed in April by [facility] Mohs surgery, healing well. She is active. Weight is stable. She is not short of breath currently. Just had eye injections both eyes for macular degeneration, seems to be helping. Followed by [facility]. Taking OAC for PAF. No [...] Take 1 tablet by mouth once daily. ([facility]) metoprolol tartrate, short acting, (LOPRESSOR) [...] 14 days (more content not included)... Normal [facility] Comprehensive metabolic 2000 panelon 06-19-2024 Albumin [Mass/Vol] 4.1 g/dL Normal 3.9-4.9 [facility] Comment on above: Order Comment: Speci men Type: BLOOD SPECIMENOrdering Facility: [facility] Address: [address] [place] [address] Performed By: #### 2 4323-8, LIPNF ####[facility] LABCLIA [id number] [place] [address] [place] ALP [Catalytic activity/Vol] 110 U/L Normal 34-123 [facility] Comment on above: Order Comment: Speci men Type: BLOOD SPECIMENOrdering Facility: [facility] Address: [address] [place] [address] Performed By: #### 2 4323-8, LIPNF ####[facility] LABCLIA [id number] [place] [address] [place] ALT [Catalytic activity/Vol] 15 U/L Normal 7-38 [facility] Comment on above: Order Comment: Speci men Type: BLOOD SPECIMENOrdering Facility: [facility] Address: [address] [place] [address] Performed By: #### 2 4323-8, LIPNF ####[facility] LABCLIA [id number] [place] [address] [place] Anion gap [Moles/Vol] 12 mmol/L Normal 8-15 [facility] Comment on above: Order Comment: Speci men Type: BLOOD SPECIMENOrdering Facility: [facility] Address: [address] [place] [address] Performed By: #### 2 4323-8, LIPNF ####[facility] LABCLIA [id number] [place] [address] [place] AST [Catalytic activity/Vol] 20 U/L Normal 13-35 [facility] Comment on above: Order Comment: Speci men Type: BLOOD SPECIMENOrdering Facility: [facility] Address: [address] [place] [address] Performed By: #### 2 4323-8, LIPNF ####[facility] LABCLIA [id number] [place] [address] [place] Bilirubin [Mass/Vol] 0.5 mg/dL Normal 0.2-1.3 [facility] Comment on above: Order Comment: Speci men Type: BLOOD SPECIMENOrdering Facility: [facility] Address: [address] [place] [address] Performed By: #### 2 4323-8, LIPNF ####[facility] LABCLIA [id number] [place] [address] [place] Calcium [Mass/Vol] 9.6 mg/dL Normal 8.5-10.2 [facility] Comment on above: Order Comment: Speci men Type: BLOOD SPECIMENOrdering Facility: [facility] Address: [address] [place] [address] Performed By: #### 2 4323-8, LIPNF ####[facility] LABCLIA [id number] [place] [address] [place] Chloride [Moles/Vol] 107 mmol/L Normal 98-107 [facility] Comment on above: Order Comment: Speci men Type: BLOOD SPECIMENOrdering Facility: [facility] Address: [address] [place] [address] Performed By: #### 2 4323-8, LIPNF ####[facility] LABCLIA [id number] [place] [address] [place] CO2 [Moles/Vol] 23 mmol/L Normal 22-30 [facility] Comment on above: Order Comment: Speci men Type: BLOOD SPECIMENOrdering Facility: [facility] Address: [address] [place] [address] Performed By: #### 2 4323-8, LIPNF ####[facility] LABCLIA [id number] [place] [address] [place] Creatinine [Mass/Vol] 1.08 mg/dL High 0.58-0.96 [facility] Comment on above: Order Comment: Speci men Type: BLOOD SPECIMENOrdering Facility: [facility] Address: [address] [place] [address] Performed By: #### 2 4323-8, LIPNF ####[facility] LABCLIA [id number] [address] [place] Creatinine and Glomerular filtration rate.predicted panel (S/P/Bld) 50 mL/min/1.73m??? Low >=60 [facility] Comment on above: Order Comment: Speci men Type: BLOOD SPECIMENOrdering Facility: [facility] Address: [address] [place] [address] Result Comment: Marcella mated Glomerular Filtration Rate [...] Performed By: #### 2 4323-8, LIPNF ####[facility] LABCLIA [id number] [place] [address] [place] Glucose [Mass/Vol] 108 mg/dL High 74-99 [facility] Comment on above: Order Comment: Speci men Type: BLOOD SPECIMENOrdering Facility: [facility] Address: [address] [place] [address] Result Comment: The [place] Diabetes Association (ADA) provides guidance for cutoff [...] Standards of Medical Care in Diabetes 2016, [place] Diabetes Association. Diabetes Care. 2016.39(Suppl 1). Performed By: #### 2 4323-8, LIPNF ####[facility] LABCLIA [id number] [place] [address] [place] Potassium [Moles/Vol] 4.1 mmol/L Normal 3.7-5.1 [facility] Comment on above: Order Comment: Speci men Type: BLOOD SPECIMENOrdering Facility: [facility] Address: [address] [place] [address] Performed By: #### 2 4323-8, LIPNF ####[facility] LABCLIA [id number] [place] [address] [place] Protein [Mass/Vol] 7.0 g/dL Normal 6.3-8.0 [facility] Comment on above: Order Comment: Speci men Type: BLOOD SPECIMENOrdering Facility: [facility] Address: [address] [place] [address] Performed By: #### 2 4323-8, LIPNF ####[facility] LABCLIA [id number] [place] [address] [place] Sodium [Moles/Vol] 142 mmol/L Normal 136-144 [facility] Comment on above: Order Comment: Speci men Type: BLOOD SPECIMENOrdering Facility: [facility] Address: [address] [place] [id number] Performed By: #### 2 4323-8, LIPNF ####[facility] LABCLIA [id number] [place] [address] [place] Urea nitrogen [Mass/Vol] 22 mg/dL High 7-21 [facility] Comment on above: Order Comment: Speci men Type: BLOOD SPECIMENOrdering Facility: [facility] Address: [address] [place] [address] Performed By: #### 2 4323-8, LIPNF ####[facility] LABCLIA [id number] [place] [address] [place] HbA1c (Bld)on 06-19-2024 Average glucose Estimated from glycated hemoglobin (Bld) [Mass/Vol] 146 mg/dL Normal [facility] Comment on above: Order Comment: Speci men Type: BLOOD SPECIMENOrdering Facility: [facility] Address: [address] [place] [address] Result Comment: eAG: (Estimated average glucose) is a calculated value from HgbA1c and is signs sales representative of the average blood glucose level in the last 2-3 month period. Performed By: #### 5 5454-3 ####[facility] LABCLIA [id number] [place] [address] [place] HbA1c (Bld) [Mass fraction] 6.7 % High 4.3-5.6 [facility] Comment on above: Order Comment: Speci men Type: BLOOD SPECIMENOrdering Facility: [facility] Address: [address] [place] [address] Result Comment: [place] Diabetes Association guidelines indicate that patients with HgbA1c in the range 5.7-6.4% are at increased risk for development of diabetes, and intervention by lifestyle modification may be beneficial. HgbA1c greater or equal to 6.5% is considered diagnostic of diabetes. Performed By: #### 5 5454-3 ####[facility] LABCLIA [id number] [place] [address] [place] LIPID PANEL, NONFASTINGon Cholesterol [Mass/Vol] 128 mg/dL Normal <200 [facility] Comment on above: Order Comment: Speci men Type: BLOOD SPECIMENOrdering Facility: [facility] Address: [address] [place] [address] Result Comment: <200 mg/dL, Desirable 200-239 mg/dL, Borderline high >239 mg/dL, High Performed By: #### 2 4323-8, LIPNF ####[facility] LABCLIA [id number] [address] [place] HDL CHOLESTEROL, NF 50 mg/dL Normal >39 [facility] Comment on above: Order Comment: Speci men Type: BLOOD SPECIMENOrdering Facility: [facility] Address: [address] [place] [address] Result Comment: 40-5 9 mg/dL, Acceptable >59 mg/dL, High: Negative risk factor for coronary heart disease <40 mg/dL, Low: Positive risk factor for coronary heart disease Performed By: #### 2 4323-8, LIPNF ####[facility] LABCLIA [id number] [address] [place] LDL CHOLESTEROL, NF 58 mg/dL Normal <100 [facility] Comment on above: Order Comment: Speci men Type: BLOOD SPECIMENOrdering Facility: [facility] Address: [address] [place] [address] Result Comment: <100 mg/dL, Optimal 100-129 mg/dL, Near optimal/above optimal 130-159 mg/dL, Borderline high 160-189 mg/dL, High >189 mg/dL, Very high Secondary prevention optimal LDL Cholesterol levels are recommended to be < 70 mg/dL Performed By: #### 2 4323-8, LIPNF ####[facility] LABCLIA [id number] [address] [place] LDL/HDL RATIO, NF 1.16 mg/dL Normal <2.54 [facility] Comment on above: Order Comment: Speci men Type: BLOOD SPECIMENOrdering Facility: [facility] Address: [address] [place] [address] Result Comment: Jessica escoto: 1. National Cholesterol Education Program ATP III Guideline At-A-Glance Quick Desk Reference: National Heart, Lung, and Blood [place]. National Institutes of Health. 2001: NIH Publication No. 01-3305. 2. An International Atherosclerosis Society position paper: global recommendations for the management of dyslipidemia: executive summary, Atherosclerosis. 2014: 232(2):410-413. Performed By: #### 2 4323-8, LIPNF ####[facility] LABCLIA [id number] [place] [address] [place] NON HDL CHOL, NF 78 mg/dL Normal <[address] [facility] Comment on above: Order Comment: Tomasi men Type: BLOOD SPECIMENOrdering Facility: [facility] Address: [address] [place] [address] Result Comment: <130 mg/dL, Optimal 130-159 mg/dL, Near optimal/above optimal 160-189 mg/dL, Borderline high 190-219 mg/dL, High >219 mg/dL, Very high Secondary prevention optimal non HDL Cholesterol levels are recommended to be <100 mg/dL Performed By: #### 2 4323-8, LIPNF ####[facility] LABCLIA [id number] [place] [address] [place] T CHOL/HDL RATIO NF 2.56 mg/dL Normal <5.10 [facility] Comment on above: Order Comment: Speci men Type: BLOOD SPECIMENOrdering Facility: [facility] Address: [address] [place] [address] Performed By: #### 2 4323-8, LIPNF ####[facility] LABCLIA [id number] [place] [address] [place] TRIGLYCERIDES, NF 101 mg/dL Normal <150 [facility] Comment on above: Order Comment: Speci men Type: BLOOD SPECIMENOrdering Facility: [facility] Address: [address] [place] [address] Result Comment: <150 mg/dL, Normal 150-199 mg/dL, Borderline high 200-499 mg/dL, High >499 mg/dL, Very high Performed By: #### 2 4323-8, LIPNF ####[facility] LABCLIA [id number] [place] [address] [place] VLDL CHOLESTEROL, NF 20 mg/dL Normal <30 [facility] Comment on above: Order Comment: Speci men Type: BLOOD SPECIMENOrdering Facility: [facility] Address: [address] [place] [address] Performed By: #### 2 4323-8, LIPNF ####[facility] LABCLIA [id number] [place] [address] [place] Urinalysis complete panel (U )on 06-19-2024 Bacteria LM.HPF (Urine sed) [#/Area] Negative Normal Negative [facility] Comment on above: Order Comment: Speci men Type: URINE SPECIMENOrdering Facility: [facility] Address: [address] [place] [address] Performed By: #### 2 4356-8 ####[facility] LABCLIA [id number] [place] [address] [place] Bilirubin Ql (U) Negative Normal Negative [facility] Comment on above: Order Comment: Speci men Type: URINE SPECIMENOrdering Facility: [facility] Address: [address] [place] [address] Performed By: #### 2 4356-8 ####[facility] LABCLIA [id number] [place] [address] [place] Clarity (Unsp spec) Clear Normal Clear [facility] Comment on above: Order Comment: Speci men Type: URINE SPECIMENOrdering Facility: [facility] Address: [address] [place] [address] Performed By: #### 2 4356-8 ####[facility] LABCLIA [id number] [place] [address] [place] Color (U) Yellow Normal Yellow [facility] Comment on above: Order Comment: Speci men Type: URINE SPECIMENOrdering Facility: [facility] Address: [address] [place] [address] Performed By: #### 2 4356-8 ####[facility] LABCLIA [id number] [place] [address] [place] Epithelial cells LM.HPF (Urine sed) [#/Area] None Seen Normal [facility] Comment on above: Order Comment: Speci men Type: URINE SPECIMENOrdering Facility: [facility] Address: [address] [place] [address] Performed By: #### 2 4356-8 ####[facility] LABCLIA [id number] [place] [address] [place] Glucose Test strip (U) [Mass/Vol] Negative Normal Negative [facility] Comment on above: Order Comment: Speci men Type: URINE SPECIMENOrdering Facility: [facility] Address: [address] [place] [address] Performed By: #### 2 4356-8 ####[facility] LABCLIA [id number] [place] [address] [place] Hemoglobin Ql (U) Negative Normal Negative [facility] Comment on above: Order Comment: Speci men Type: URINE SPECIMENOrdering Facility: [facility] Address: [address] [place] [address] Performed By: #### 2 4356-8 ####[facility] LABCLIA [id number] [place] [address] [place] Hyaline casts (Urine sed) [#/Area] 1-3 /LPF Abnormal 0 /LPF [facility] Comment on above: Order Comment: Speci men Type: URINE SPECIMENOrdering Facility: [facility] Address: [address] [place] [address] Performed By: #### 2 4356-8 ####[facility] LABCLIA [id number] [place] [address] [place] Ketones Ql (U) Negative Normal Negative [facility] Comment on above: Order Comment: Speci men Type: URINE SPECIMENOrdering Facility: [facility] Address: [address] [place] [address] Performed By: #### 2 4356-8 ####[facility] LABCLIA [id number] [place] [address] [place] Leukocyte esterase Test strip Ql (U) 1+ Abnormal Negative [facility] Comment on above: Order Comment: Speci men Type: URINE SPECIMENOrdering Facility: [facility] Address: [address] [place] [address] Performed By: #### 2 4356-8 ####[facility] LABCLIA [id number] [place] [address] [place] Nitrite Ql (U) Negative Normal Negative [facility] Comment on above: Order Comment: Speci men Type: URINE SPECIMENOrdering Facility: [facility] Address: [address] [place] [address] Performed By: #### 2 4356-8 ####[facility] LABCLIA [id number] [place] [address] [place] pH (U) 6.0 [pH] Normal <8.5 [facility] Comment on above: Order Comment: Speci men Type: URINE SPECIMENOrdering Facility: [facility] Address: [address] [place] [address] Performed By: #### 2 4356-8 ####[facility] LABCLIA [id number] [place] [address] [place] Protein (U) [Mass/Vol] Negative Normal Negative [facility] Comment on above: Order Comment: Speci men Type: URINE SPECIMENOrdering Facility: [facility] Address: [address] [place] [address] Performed By: #### 2 4356-8 ####[facility] [id number] [place] [address] [place] RBC LM.HPF (Urine sed) [#/Area] 0-2 /HPF Normal 0-2 /HPF [facility] Comment on above: Order Comment: Speci men Type: URINE SPECIMENOrdering Facility: [facility] Address: [address] [place] [address] Performed By: #### 2 4356-8 ####[facility] [id number] [place] [address] [place] Specific gravity (U) [Rel density] 1.012 Normal 1.005-1.03 0 [facility] Comment on above: Order Comment: Speci men Type: URINE SPECIMENOrdering Facility: [facility] Address: [address] [place] [address] Performed By: #### 2 4356-8 ####[facility] [id number] [place] [address] [place] Urobilinogen Ql (U) 0.2 EU/dL Normal 0.2-1.0 EU/dL [facility] Comment on above: Order Comment: Speci men Type: URINE SPECIMENOrdering Facility: [facility] Address: [address] [place] [address] Performed By: #### 2 4356-8 ####[facility] [id number] [place] [address] [place] WBC LM.HPF (Urine sed) [#/Area] 6-10 /HPF Abnormal 0-5 /HPF [facility] Comment on above: Order Comment: Speci men Type: URINE SPECIMENOrdering Facility: [facility] Address: [address] [place] [address] Performed By: #### 2 4356-8 ####[facility] PIPPA [id number] [place] [address] [place] Bacteria Ur Culton [...] , Intermediate >32 , Resistant >64 Abnormal [facility] Comment on above: Performed By: #### 6 30-4 ####[facility] LABCLIA [id number] [address] [facility] CNOVon 06-04-2024 CNOV Office Visit (INTMWS ) TASHA SWEET ([id number]) 1935 F Date Time Provider Department 06/04/24 11:40 AM AYANNA PATEL INTMWS During your visit today, we recorded the following information about you: Temperature Pulse Blood pressure Weight 97.4 degrees 63/minute 134/72 76.3 kg Ayanna Patel, FITTER MACHINIST.CALL CENTER CONSULTANT 06/04/2024 12:18 PM Signed CC: Patient presents [...] Take 1 tablet by mouth once daily. ([facility]) metoprolol tartrate, short acting, (LOPRESSOR) 100 mg tablet Take 1 tablet by mouth two times a day. ([facility]) hydrocortisone valerate (WESTCORT) 0.2 % [...] symptoms discusse (more content not included)... Normal [facility] Abd Aortic/IVC Duplex scanon 03-19-2024 Abd Aortic/IVC Duplex scan [facility] [address] [place] [address] Abd Aortic/IVC Duplex scan 03/19/24 0901 MR#: [id number] Acct: [id number] Name: TASHA SWEET Rep #: [id number] : 1935 88 From: Lonnie Melendez MD Attending Dr: Dr. Rick Bermudez MD Status: REG CLI Ordering Dr: Rick Bermudez MD Date: 03/19/24 Location: [facility] Sex: F C Admitted: Reason For Study: [...] Physician: Jadyn Bowden Performed By: Stalin Segura, T 03/19/241619 Date ____ Lonnie Melendez MD CC: Dr. Rick Bermudez MD; Dr. Jadyn Bowden MD Date Dictated: 03/19/24 09 Date Transcribed: 03/19/24 162 Multi Operation Machine Operator: Signed [facility] Echo Completeon 03-02-[address] [facility] [address] [place] [address] Echo Complete 03/02/24 1032 MR#: [id number] Acct: [id number] Name: TASHA SWEET Rep #: [id number] : 1935 88 From: Rick Bermudez MD Attending Dr: Dr. Rick Bermudez MD Status: REG CLI Ordering Dr: Rick Bermudez MD Date: 03/02/24 Location: [facility] Sex: F C Admitted: Reason For [...] Dictated: 03/02/24 1032 Date Transcribed: 03/02/24 1220 Multi Operation Machine Operator: Signed Normal [facility] Stress Reporton 03-02-[address] [facility] [address] [place] [address] MR#: [id number] Acct: [id number] Name: TASHA SWEET Rep #: [id number] : 1935 88 From: Rick Bermudez MD [...] of 89%. This note was generated with [employer] dictation software. It may contain incorrect words, spelling, and punctuation that were not noted in checking the note before signing. 03/02/24 1011 Date ____ Rick Bermudez MD CC: Dr. Rick Bermudez MD; Dr. Jadyn Bowden MD Date Dictated: 03/02/24 1009 Date Transcribed: 03/02/24 100 Multi Operation Machine Operator: ASAF Signed Normal [facility] Comprehensive Metabolic Prof ilon 02-17-2024 Albumin [Mass/Vol] 3.4 g/dL Normal 3.2-5.0 [facility] Comment on above: Performed By: #### L 500.4050, L500.4100 #### [facility] [address] [place], [address] Albumin/Globulin [Mass ratio] 0.9 {ratio} Normal 0.9-2.4 [facility] Comment on above: Performed By: #### L 500.4050, L500.4100 #### [facility] [address] [place], [address] ALK P 112 U/L Normal 45-117 [facility] Comment on above: Performed By: #### L 500.4050, L500.4100 #### [facility] [address] [place], [address] ALT [Catalytic activity/Vol] 21 U/L Normal 13-56 [facility] Comment on above: Performed By: #### L 500.4050, L500.4100 #### [facility] [address] [place], [address] AST [Catalytic activity/Vol] 16 U/L Normal 15-37 [facility] Comment on above: Performed By: #### L 500.4050, L500.4100 #### [facility] [address] [place], [address] Bilirubin [Mass/Vol] 1.60 mg/dL High 0.20-1.00 [facility] Comment on above: Result Comment: For patients on eltrombopag therapy, use of Dimension [place] TBIL is not recommended. Performed By: #### L 500.4050, L500.4100 #### [facility] [address] [place], [address] BUN/CRE 16.4 RATIO Normal 10-20 [facility] Comment on above: Performed By: #### L 500.4050, L500.4100 #### [facility] [address] [place], [address] CA,Total 9.2 mg/dL Normal 8.5-10.1 [facility] Comment on above: Performed By: #### L 500.4050, L500.4100 #### [facility] [address] [place], [address] Chloride [Moles/Vol] 108 mmol/L High 98-107 [facility] Comment on above: Performed By: #### L 500.4050, L500.4100 #### [facility] [address] [place], [address] CO2 [Moles/Vol] 25.0 mmol/L Normal 21.0-32.0 [facility] Comment on above: Performed By: #### L 500.4050, L500.4100 #### [facility] [address] [place], [address] Creatinine [Mass/Vol] 1.28 mg/dL High 0.55-1.02 [facility] Comment on above: Result Comment: The validity of the calculated GFR GFRAA in patients over 70 years has not been determined. Clinical correlation is essential. Performed By: #### L 500.4050, L500.4100 #### [facility] [address] [place], [address] EST GFR - AA 51 mL/min Low >60 [facility] Comment on above: Result Comment: Afri can Syrian GFR Calc Performed By: #### L 500.4050, L500.4100 #### [facility] [address] [place], [address] GAP 7 Normal 5-15 [facility] Comment on above: Performed By: #### L 500.4050, L500.4100 #### [facility] [address] [place], [address] GFR/1.73 sq M.predicted among non-blacks MDRD (S/P/Bld) [Vol rate/Area] 42 mL/min/{1.73_m2} Low >60 [facility] Comment on above: Result Comment: Non- GFR Calc Performed By: #### L 500.4050, L500.4100 #### [facility] [address] [place], [address] Globulin (S) [Mass/Vol] 3.9 g/dL Normal 2.2-4.2 [facility] Comment on above: Performed By: #### L 500.4050, L500.4100 #### [facility] [address] [place], [address] Glucose [Mass/Vol] 138 mg/dL High 74-106 [facility] Comment on above: Result Comment: Fast ing Glucose result greater than or equal to 126 mg/dL suggests DIABETES MELLITUS per A.D.A. criteria. Performed By: #### L 500.4050, L500.4100 #### [facility] [address] [place], [address] Potassium [Moles/Vol] 3.7 mmol/L Normal 3.5-5.1 [facility] Comment on above: Performed By: #### L 500.4050, L500.4100 #### [facility] [address] [place], [address] Sodium [Moles/Vol] 140 mmol/L Normal 136-145 [facility] Comment on above: Performed By: #### L 500.4050, L500.4100 #### [facility] [address] [place], [address] T PROT 7.3 g/dL Normal 6.4-8.2 [facility] Comment on above: Performed By: #### L 500.4050, L500.4100 #### [facility] [address] [place], [address] Urea nitrogen [Mass/Vol] 21 mg/dL High 7-18 [facility] Comment on above: Performed By: #### L 500.4050, L500.4100 #### [facility] [address] [place], [address] Lipid Profileon 02-17-2024 Cholesterol [Mass/Vol] 117 mg/dL Normal 200 [facility] Comment on above: Result Comment: <200 mg/dL Desirable 200-240 mg/dL Borderline >240 mg/dL High Risk Performed By: #### L 500.4050, L500.4100 #### [facility] [address] [place], [address] Cholesterol in HDL [Mass/Vol] 53 mg/dL Normal [facility] Comment on above: Result Comment: The drugs N-Acetylcysteine and Metamizole may falsely depress this assay. Reference Range HDL <40 mg/dL Low HDL Cholesterol HDL >or= 60 mg/dL High HDL Cholesterol Performed By: #### L 500.4050, L500.4100 #### [facility] [address] [place], [address] Cholesterol in LDL [Mass/Vol] 49 mg/dL Normal 0-130 [facility] Comment on above: Performed By: #### L 500.4050, L500.4100 #### [facility] [address] [place], [address] Cholesterol in VLDL [Mass/Vol] 15 mg/dL Normal 5-40 [facility] Comment on above: Performed By: #### L 500.4050, L500.4100 #### [facility] [address] [place], [address] Triglyceride [Mass/Vol] 77 mg/dL Normal [facility] Comment on above: Result Comment: The drugs N-Acetylcysteine and Metamizole may falsely depress this assay. Serum Triglycerides Reference Interval Normal <150 mg/dL Borderline high 150 - 199 mg/dL High 200 - 499 mg/dL Very High > or = 500 mg/dL Performed By: #### L 500.4050, L500.4100 #### [facility] [address] [place], [address] Cardiology Visit Reporton Cardiology Visit Report [facility] [address] [place], [place] [address] OFFICE VISIT Date of Service: 02/16/24 MR#: [id number] Acct: [id number] Name: TASHA SWEET Rep #: [id number] : 1935 Provider: Dr. Rick Bermudez MD Age/Sex: 88/F Location: [facility] Status: Signed HPI [facility] History of Present Illness Details: This lady has past medical history significant for coronary artery disease status post AK, status post PCI and drug-eluting stent to [...] NIBP Intake Visit Reasons: 1 Y FU Manager Of Product Required: No Accompanied by: Daughter Is patient in pain?: No Allergies codeine Adverse Reaction (Verified 02/16/24 10:48) Nausea lisinopril Adverse Reaction (Verified 02/16/24 10:48) Cough Medications ???Medication ???Instructions ???Recorded ???Confirmed ???Type cyanocobalamin (vitamin B-12) 1,000 mcg PO DAILY SUPPLEMENT 09/26/19 02/16/24 History 1,000 mcg tablet sulfasalazine 500 mg [...] 02/16/24 History mcg (1,000 unit) tablet vitamins A,C,C-etgl-itubsg 4,296 1 cap PO QDAY 02/16/24 02/16/24 History mcg-226 mg-90 mg capsule (PreserVision AREDS) Ejection fraction %: 55 Have you fallen in the past year?: No [facility] Medical History Atherosclerotic heart disease of [place] coronary artery without angina pectoris Diabetes mellitus [...] [facility] No Panel Informationon 12-15 [facility] [address] [facility], [place] [address] Test Date: 2023-12-15 Pat Name: TASHA SWEET Department: Room: Gender: Female Floor 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 PULMONARY FUNCTION LAB [facility] SPIROMETRY - BASELINE AND PO ST BRIDGERATORon 12-16-2023 DLCO (ml/min/mmHg) 13.02 ml/min/mm H g [facility] DLCO/VA (ml/min/mmHg/L) 3.26 ml/min/mmH g/L [facility] ERV BOX (L) 0.26 L [facility] HYT28-94% POST (L/S) 1.50 L/S [facility] SOF01-67% PRE (L/S) 2.14 L/S [facility] land [facility] FEV1 PRE (L) 1.69 L [facility] FEV1/FVC POST (%) 76 % [facility] FEV1/FVC PRE (%) 80 % [facility] FEV1_POST (L) 1.65 L [facility] FRC Box (L) 3.56 L [facility] FVC POST (L) 2.17 L [facility] FVC PRE (L) 2.13 L [facility] IC BOX (L) 1.82 L [facility] PEF POST (L/S) 6.05 L/S [facility] PEF PRE (L/S) 3.58 L/S [facility] RV Box (L) 3.48 L [facility] RV/TLC Box (%) 63 % [facility] TLC Box (L) 5.51 L [facility] VA (L) 4.00 L [facility] VC (L) BOX 2.10 L [facility] ALBUMIN/CREATININE RATIO, UR INEon 12-15-2023 Albumin DL <= 20 mg/L (U) [Mass/Vol] 19.9 mg/L [facility] Albumin/Creatinine (U) [Mass ratio] 81 mg/g High NINF - 30 mg/g [facility] Comment on above: Adult Male and Femal [...] [Mass/Vol] 24.5 mg/dL 20.0 - 300.0 mg/dL [facility] Interpretation and review of laboratory results Abnormal [facility] HEMOGLOBIN A1C (POC)on 12-13 HbA1c (Bld) [Mass fraction] 6.8 % Abnormal 4.3 - 5.6 % [facility] Comment on above: Location:[address], [place], [address] Point of care (POC) Hemoglobin A1c (HGBA1C) [...] specific diabetes management situations: The POC device helper maintenance cleaning provides a normal range of 4.2% to 6.5% for the HGBA1C POC test. However, the [place] [employer] guidelines indicate that patients with [...] Interpretation and review of laboratory results Abnormal [facility] UA DIP, URINE (POC)on 2023 BILIRUBIN UA (POCT) Negative Negative [facility] CLARITY UA (POCT) Clear [place] COLOR UA (POCT) Dark yellow [facility] GLUCOSE UA (POCT) Negative Negative mg/dL [facility] Hemoglobin Ql (U) Negative Negative [place] Interpretation and review of laboratory results Abnormal [facility] KETONE UA (POCT) Negative Negative mg/dL [facility] LEUKOCYTES UA (POCT) Moderate Abnormal Negative [facility] NITRITE UA (POCT) Positive Abnormal Negative [place] PH UA (POCT) 6.0 4.5 - 8.0 [facility] Protein Ql (U) 30 mg/dL Abnormal Negative [facility] SPECIFIC GRAVITY UA (POCT) 1.025 1.005 - 1.030 [facility] UROBILINOGEN UA (POCT) 1.0 Normal E.U./dL [facility] Location:[address], [place], [place], [id number] [place] [address] POINT OF CARE [facility] XR Chest PA and Lateralon 01 -13-2023 IMPRESSION: Stable exam with no acute radiographic abnormality. Multi Operation Machine Operator: AMIRA Transcribe Date/Time: Jun 04 2022 10:39A Dictated by : SHARON BHATIA MD This examination was interpreted and the report reviewed and electronically signed by: SHARON BHATIA MD on Jun 04 2022 10:41AM [facility] DIVISION OF RADIOLOGY * * *Final Report* [...] the visualized spine. DIVISION OF RADIOLOGY Provider, [facility] Anabel iraheta [place] - 06/04/2022 * * *Final Report* * [...] Stable exam with no acute radiographic abnormality. Multi Operation Machine Operator: AMIRA Transcribe Date/Time: Jun 04 2022 10:39A Dictated by : SHARON BHATIA MD This examination was interpreted and the report reviewed and electronically signed by: SHARON BHATIA MD on Jun 04 2022 10:41AM EST [facility] XR Chest PA and LateralOrder ed By: Ccf Provider on 06-04-2022 [facility] XR Chest PA and Lateralon Radiology Study observation (narrative) [facility] STREP A MOLECULAR (POC)on Procedural Control Valid [facility] Strep A (POCT) Negative Negative [facility] Absolute lymphocyte counton 11-27-2021 Lymphocytes Auto (Unsp spec) [#/Vol] 3.61 10*3/uL 0.83-4.51 [facility] Work Phone: Basophil percentageon 2021 Basophils/100 WBC (Bld) 0.2 % 0-1 [facility] Work Phone: Chloride [Moles/Vol] 108 mmol/L 98-107 [facility] Work Phone: Eosinophils/100 WBC (Bld) 3.2 % 0-5 [facility] Work Phone: Glucose [Mass/Vol] 172 mg/dL 74-106 [facility] Work Phone: Comment on above: Fasting Glucose resu lt greater than or equal to 126 mg/dL suggests DIABETES MELLITUS per A.D.A. criteria. Neutrophils (Bld) [#/Vol] 5.3 10*3/uL 2.0-7.7 [facility] Work Phone: Neutrophils/100 WBC (Bld) 52.5 % 47-70 [facility] Work Phone: Potassium [Moles/Vol] 3.9 mmol/L 3.5-5.1 [facility] Work Phone: Sodium [Moles/Vol] 141 mmol/L 136-145 [facility] Work Phone: [phone] WBC (Bld) [#/Vol] 10.2 10*3/uL 4.4-11.0 [facility] Work Phone: [phone] Blood erythrocytes count (nu mber/volume)on 11-27-2021 RBC (Bld) [#/Vol] 4.24 10*6/uL 4.2-5.4 [facility] Work Phone: [phone] Blood hemoglobin measurement (mass/volume)on 11-27-2021 Hemoglobin (Bld) [Mass/Vol] 12.9 g/dL 12.0-15.0 [facility] Work Phone: Blood lymphocytes/100 leukoc yteson 11-27-2021 Lymphocytes/100 WBC (Bld) 35.5 % 19-41 [facility] Work Phone: Blood monocytes/100 leukocyt eson 11-27-2021 Monocytes/100 WBC (Bld) 8.3 % 0-10 [facility] Work Phone: Blood platelet mean volumeon 11-27-2021 Platelet mean volume (Bld) [Entitic vol] 10.8 fL 6.2-12.0 [facility] Work Phone: [phone] Determination of erythrocyte mean corpuscular volume (MCV)on 11-27-2021 MCV (RBC) [Entitic vol] 95.0 fL 81-99 [facility] Work Phone: [phone] Hematocrit Auto (Bld) [Volum e fraction]on 11-27-2021 Hematocrit (Bld) [Volume fraction] 40.3 % 37-47 [facility] Work Phone: [phone] Laboratory - Chemistry and C hemistry - challengeon 11-27-2021 CO2 [Moles/Vol] 26.0 mmol/L 21.0-32.0 [facility] Work Phone: [phone] Urea nitrogen/Creatinine [Mass ratio] 13.9 mg/mg 10-20 [facility] Work Phone: [phone] Laboratory - Hematology and Cell countson 11-27-2021 Erythrocyte distribution width (RBC) [Entitic vol] 49.1 fL 35.1-43.9 [facility] Work Phone: Erythrocyte distribution width (RBC) [Ratio] 14.1 % 11.6-14.6 [facility] Work Phone: Immature granulocytes/100 WBC (Bld) 0.300 % 0.0-0.9 [facility] Work Phone: Comment on above: IG% - Immature Granu locytes (promyelocytes, myelocytes and metamyelocytes) > 1% indicates that a LEFT SHIFT is Present. MCH (RBC) [Entitic mass] 30.4 pg 27.0-32.0 [facility] Work Phone: Nucleated RBC/100 WBC (Bld) [Ratio] 0 % 0-5 [facility] Work Phone: MCHC Auto (RBC) [Mass/Vol]on 11-27-2021 MCHC (RBC) [Mass/Vol] 32.0 g/dL 32-36 [facility] Work Phone: No Panel Informationon 11-27 Estimated Creatinine Clearance Calc 23.78 ml/min [facility] Work Phone: Estimated GFR (MDRD) Amer 54 mL/min >60 [facility] Work Phone: Comment on above: GFR Calc Estimated GFR (MDRD) Non-Af Amer 44 mL/min >60 [facility] Work Phone: Comment on above: Non- GFR Calc Troponin I High Sensitivity 6 pg/mL 3.0-54.0 [facility] Work Phone: Comment on above: Please Note: New January t Units and Gender Specific Reference Ranges. For more information see Policy Stat Procedure [place] High Sensitivity Troponin (TNIH) and attachments. Platelets bldon 11-27-2021 Platelets (Bld) [#/Vol] 179 10*3/uL 150-450 [facility] Work Phone: Serum or plasma calcium wu urement (mass/volume)on 11-27-2021 Calcium [Mass/Vol] 9.2 mg/dL 8.5-10.1 [facility] Work Phone: Serum or plasma creatinine m easurement (mass/volume)on 11-27-2021 Creatinine [Mass/Vol] 1.22 mg/dL 0.55-1.02 [facility] Work Phone: Comment on above: The validity of the calculated GFR & GFRAA in patients over 70 years has not been determined. Clinical correlation is essential. Serum or plasma urea nitroge n measurement (mass/volume)on 11-27-2021 Urea nitrogen [Mass/Vol] 17 mg/dL 7-18 [facility] Work Phone: Thin prep Papanicolaou smear with manual screeningon 11-27-2021 Thin prep Papanicolaou smear with manual screening 7 5-15 [facility] Work Phone: No Panel Informationon 10-13 IMPRESSION: No acute osseous abnormality. Bilateral acromioclavicular osteoarthritis. Multi Operation Machine Operator: AMIRA Transcribe Date/Time: Oct 13 2021 9:01A Dictated by : LIDIA BOSTON DO This examination was interpreted and the report reviewed and electronically signed by: LIDIA BOSTON DO on Oct 13 2021 9:05AM EST CLAUDIO__NOT _USE_DIVIS ION OF RADIOLOGY Radiology Study observation (narrative) [facility] No Panel InformationOrdered By: Ccf Provider on 10-13-2021 [facility] XR Clavicle - left 2 Viewson 10-13-2021 [...] XR CLAVICLE 2V RT Laterality: LEFT (accession [id number]), RIGHT (accession [id number]) Number of different views (projections): 2 views of each clavicle. COMPARISON: None. RESULT: No fracture or dislocation. Mild-moderate degenerative change bilateral acromioclavicular joints. Chronic reactive changes LEFT greater tuberosity. Atherosclerotic calcification of the aortic arch. ZZZ_DO_NOT _USE_DIVIS [facility] OF RADIOLOGY Provider, [facility] - 10/13/2021 * * *Final Report* * [...] XR CLAVICLE 2V RT Laterality: LEFT (accession [id number]), RIGHT (accession [id number]) Number of different views (projections): 2 views of each clavicle. COMPARISON: None. RESULT: No fracture or dislocation. Mild-moderate degenerative change bilateral acromioclavicular joints. Chronic reactive changes LEFT greater tuberosity. Atherosclerotic calcification of the aortic arch. IMPRESSION IMPRESSION: No acute osseous abnormality. Bilateral acromioclavicular osteoarthritis. Multi Operation Machine Operator: AMIRA Transcribe Date/Time: Oct 13 2021 9:01A Dictated by : LIDIA BOSTON DO This examination was interpreted and the report reviewed and electronically signed by: LIDIA BOSTON DO on Oct 13 2021 9:05AM [facility] XR Clavicle - right 2 Viewso [...] XR CLAVICLE 2V RT Laterality: LEFT (accession [id number]), RIGHT (accession [id number]) Number of different views (projections): 2 views of each clavicle. COMPARISON: None. RESULT: No fracture or dislocation. Mild-moderate degenerative change bilateral acromioclavicular joints. Chronic reactive changes LEFT greater tuberosity. Atherosclerotic calcification of the aortic arch. ZZZ_DO_NOT _USE_DIVIS [facility] OF RADIOLOGY Provider, [facility] - 10/13/2021 * * *Final Report* * [...] XR CLAVICLE 2V RT Laterality: LEFT (accession [id number]), RIGHT (accession [id number]) Number of different views (projections): 2 views of each clavicle. COMPARISON: None. RESULT: No fracture or dislocation. Mild-moderate degenerative change bilateral acromioclavicular joints. Chronic reactive changes LEFT greater tuberosity. Atherosclerotic calcification of the aortic arch. IMPRESSION IMPRESSION: No acute osseous abnormality. Bilateral acromioclavicular osteoarthritis. Multi Operation Machine Operator: AMIRA Transcribe Date/Time: Oct 13 2021 9:01A Dictated by : LIDIA BOSTON DO This examination was interpreted and the report reviewed and electronically signed by: LIDIA BOSTON DO on Oct 13 2021 9:05AM EST [facility] XR Foot - left AP and Latera l and obliqueon 10-30-2020 IMPRESSION: No fract ure Multi Operation Machine Operator: AMIRA Transcribe Date/Time: Oct 30 2020 3:53P Dictated by : YESSENIA AMIN MD This examination was interpreted and the report reviewed and electronically signed by: YESSENIA AMIN MD on Oct 30 2020 3:55PM EST DIVISION OF RADIOLOGY * * *Final Report* [...] first tarsometatarsal joint. DIVISION OF RADIOLOGY Provider, [facility] Anabel [place] - 10/30/2020 * * *Final Report* * [...] first tarsometatarsal joint. IMPRESSION IMPRESSION: No fracture Multi Operation Machine Operator: AMIRA Transcribe Date/Time: Oct 30 2020 3:53P Dictated by : YESSENIA AMIN MD This examination was interpreted and the report reviewed and electronically signed by: YESSENIA AMIN MD on Oct 30 2020 3:55PM EST [facility] Radiology Study observation (narrative) [facility] XR Foot - left AP and Latera l and obliqueOrdered By: Ccf Provider on 10-30-2020 [facility] NICOLAon 03-08-2017 CNOV Office Visit (AGCARDWST) [place] TASHA JAMES ([id number]) 1935 FDate Time Provider Adxzvbisew19/17/17 11:30 AM FELICE PEARSON During your visit [...] - metBeta mia for ASHD with prior AK or prior LVEF<40 (NQF 0070) - metBeta [...] with treatment plan.This note was generated using DiversityDoctor voice recognition system, and there may besome [...] ULTRA TEST) Misc test strip Use as instructedLancets (ONE TOUCH ULTRASOFT LANCETS) Misc lancets 1 Each once daily. Use asinstructedPHYSICAL [...] limits.Electronically Signed:Felice Pearson MDMarch 08, 2017 11:37 [facility]: Terry Gallego MD 03/08/2017 11:37 AM SignedLIFESTYLE [...] programs in your area.Referring Provider: FELICE PEARSON [[id number]]Allergies As of Date: 03/08/2017 Noted Allergy ReactionCODEINE 09/12/2007 11 - VomitingLISINOPRIL 11/25/2010 3 - CoughDate Reviewed: 03/08/2017Reviewed by: Ángela Palencia - Fully AssessedReason for Visit: Follow Up [171]Primary Visit Diagnosis:ASHD (arteriosclerotic heart disease) [I25.10] Other Visit Diagnosis:PAF (paroxysmal atrial fibrillation) ([facility]) [I48.0]Order(s):potassium chloride (K-TAB) 10 mEq tabletTake 1 tablet by mouth once daily.Disp: 90 tabletRfl: 3 Hydrochlorothiazide 12.5 mg capsuleTake 1 capsule by mouth once daily.Disp: 90 capsuleRfl: 3 ECG B/O W INTERP (MED OFFICE) [ECG06] Order #: [id number] as of 03/08/2017 Sig: POTASSIUM CHLORIDE ER [...] Ángela Palencia MA 03/08/2017 11:18 AM >> ÁNGELA PALENCIA MA Mar 08, 2017 11:18 AMProblem List As [...] the following areas and commit to making customer advocacy manager changes. EAT A WHOLE FOOD, PLANT BASED [...] Status:Closed by FELICE PEARSON MD on 03/08/17 [facility] PROGRESSon 03-08-2017 PROGRESS HNO ID: [id number] thor: Felice Beaver: (none)Author Type: PhysicianType: Progress NotesFiled: 10/20/2017 6:08 PMNote Text:PERTINENT CARDIAC HISTORYASHD - PCI RCA, CX 06/07 (SHABNAM)HLHTNPAF - during ACS, no recurrenceDMSevere epistaxis - DHERENCE TO GUIDELINESACE-I or ARB for HF with prior LVEF<40 (NQF 0081) - N/AASA or Plavix for ASHD (NQF 0067) - metBeta mia for ASHD with prior AK or prior LVEF<40 (NQF 0070) - metBeta [...] with treatment plan.This note was generated using D[employer]Doctor voice recognition system, and theremay be some [...] and is within normal limits.Electronically Signed:Felice Pearson MDCorewell Health Butterworth Hospitalober 2016 11:37 [facility]: Cash Turpin MD [facility] Vital Signs Date Time Vital Sign Value Performing Clinician Pamela johnson 01-17-2025 13:26-0400 Body mass index (BMI) [Ratio] 30.33 kg/m2 Jessie Hurt APRN.[employer] Work Phone: [facility] 01-17-2025 13:26-040 Body weight 72.8 kg Jessie Hurt APRN.[employer] Work Phone: [facility] 01-17-2025 13:26-040 Diastolic blood pressure 83 mm[Hg] Jessie Hurt APRN.[employer] Work Phone: [facility] 01-17-2025 13:26-0400 Heart rate 61 /min Jessie Hurt APRN.[employer] Work Phone: [facility] 01-17-2025 13:26-0400 Respiratory rate 16 /min Jessie Hurt FITTER MACHINIST.[employer] Work Phone: [facility] 01-17-2025 13:26-0400 SaO2% (BldA) [Mass fraction] 94 % Jessie Hurt FITTER MACHINIST.[employer] Work Phone: [facility] 01-17-2025 13:26-0400 Systolic blood pressure 138 mm[Hg] Jessie Hurt FITTER MACHINIST.[employer] Work Phone: [facility] 01-10-2025 09:10-0400 Body temperature 98.2 [degF] Dr. Jadyn Bowden MD Work Phone: 2(831)386-945380 [address] 01-10-2025 09:10-0400 Diastolic blood pressure 67 mm[Hg] Dr. Jadyn Bowden MD Work Phone: 2(606)968-598180 [address] 01-10-2025 09:10-0400 Heart rate 76 /min Dr. Jadyn Bowden MD Work Phone: 6(689)275-965628 [place] [address] 01-10-2025 09:10-0400 Respiratory rate 16 /min Dr. Jadyn Bowden MD Work Phone: 9(399)894-705528 [place] [address] 01-10-2025 09:10-0400 SaO2% (BldA) [Mass fraction] 95 % Dr. Jadyn Bowden MD Work Phone: 5(170)913-232828 [place] [address] 01-10-2025 09:10-0400 Systolic blood pressure 169 mm[Hg] Dr. Jadyn Bowden MD Work Phone: 3(109)099-996828 [place] [address] 01-10-2025 05:12-0400 Body height 152.[address] Jadyn Bowden MD Work Phone: 9(321)062-757155 [place] [address] 01-10-2025 05:12-0400 Body mass index (BMI) [Ratio] 32.2 kg/m2 Dr. Jadyn Bowden MD Work Phone: 2(234)733-780028 [place] [address] 01-10-2025 05:12-0400 Body weight 74.[address] Jadyn Bowden MD Work Phone: 8(630)144-550728 [place] [address] 12-28-2024 09:52-0400 Body height 152.[address] Jadyn Bowden MD Work Phone: 0(949)125-171755 [place] [address] 12-28-2024 09:52-0400 Body mass index (BMI) [Ratio] 31.6 kg/m2 Dr. Jadyn Bowden MD Work Phone: 3(843)927-583455 [place] [address] 12-28-2024 09:52-0400 Body weight 73.[address] Jadyn Bowden MD Work Phone: 8(990)720-461855 [place] [address] 12-28-2024 09:52-0400 Diastolic blood pressure 77 mm[Hg] Dr. Jadyn Bowden MD Work Phone: 8(779)921-923755 [place] [address] 12-28-2024 09:52-0400 Heart rate 55 /min Dr. Jadyn Bowden MD Work Phone: 4(970)910-120655 [place] [address] 12-28-2024 09:52-0400 Respiratory rate 18 /min Dr. Jadyn Bowden MD Work Phone: 0(727)933-602855 [place] [address] 12-28-2024 09:52-0400 SaO2% (BldA) [Mass fraction] 97 % Dr. Jadyn Bowden MD Work Phone: 9(594)558-858455 [place] [address] 12-28-2024 09:52-0400 Systolic blood pressure 162 mm[Hg] Dr. Jadyn Bowden MD Work Phone: 3(180)438-373455 [place] [address] 11-08-2024 11:36-0400 Diastolic blood pressure 75 mm[Hg] Jessie Hurt FITTER MACHINIST.[employer] Work Phone: 4(191)113-673843 [place] [address] 11-08-2024 11:36-0400 Heart rate 62 /min Jessie Hurt FITTER MACHINIST.[employer] Work Phone: 6(800)212-268143 [place] [address] 11-08-2024 11:36-0400 Systolic blood pressure 155 mm[Hg] eJssie Hurt FITTER MACHINIST.[employer] Work Phone: 5(116)610-950243 [place] [address] 11-08-2024 11:35-0400 Body mass index (BMI) [Ratio] 30.83 kg/m2 Jessie Hurt FITTER MACHINIST.[employer] Work Phone: [facility] 11-08-2024 11:35-0400 Body weight 74 kg Jessie Hurt FITTER MACHINIST.[employer] Work Phone: [facility] 11-08-2024 11:35-0400 Respiratory rate 16 /min Jessie Hurt FITTER MACHINIST.[employer] Work Phone: [facility] 09-10-2024 12:05-0400 Diastolic blood pressure 80 mm[Hg] Jessie Hurt FITTER MACHINIST.[employer] Work Phone: [facility] 09-10-2024 12:05-0400 Heart rate 80 /min Jessie Hurt FITTER MACHINIST.[employer] Work Phone: [facility] 09-10-2024 12:05-0400 Systolic blood pressure 145 mm[Hg] Jessie Hurt FITTER MACHINIST.[employer] Work Phone: [facility] 09-10-2024 12:03-0400 Body mass index (BMI) [Ratio] 31.24 kg/m2 Jessie Hurt FITTER MACHINIST.[employer] Work Phone: [facility] 09-10-2024 12:03-0400 Body weight 75 kg Jessie Hurt FITTER MACHINIST.[employer] Work Phone: [facility] 09-10-2024 12:03-0400 Respiratory rate 16 /min Jessie Hurt FITTER MACHINIST.[employer] Work Phone: [facility] 08-06-2024 08:10-0400 Body height 152.[address] Jadyn Bowden MD Work Phone: [facility] 08-06-2024 08:10-0400 Body mass index (BMI) [Ratio] 32.4 kg/m2 Dr. Jadyn Bowden MD Work Phone: [facility] 08-06-2024 08:10-0400 Body weight 75.[address] Jadyn Bowden MD Work Phone: [facility] 08-06-2024 08:10-0400 Diastolic blood pressure 87 mm[Hg] Dr. Jadyn Bowden MD Work Phone: [facility] 08-06-2024 08:10-0400 Heart rate 78 /min Dr. Jadyn Bowden MD Work Phone: [facility] 08-06-2024 08:10-0400 Respiratory rate 16 /min Dr. Jadyn Bowden MD Work Phone: [facility] 08-06-2024 08:10-0400 Systolic blood pressure 180 mm[Hg] Dr. Jadyn Bowden MD Work Phone: [facility] 06-19-2024 12:47-0500 Body mass index (BMI) [Ratio] 31.66 kg/m2 Jessie Hurt FITTER MACHINIST.[employer] Work Phone: [facility] 06-19-2024 12:47-0500 Body weight 76 kg Jessie Hurt FITTER MACHINIST.[employer] Work Phone: [facility] 06-19-2024 12:47-0500 Diastolic blood pressure 77 mm[Hg] Jessie Hurt FITTER MACHINIST.[employer] Work Phone: [facility] 06-19-2024 12:47-0500 Heart rate 76 /min Jessie Hurt FITTER MACHINIST.[employer] Work Phone: [facility] 06-19-2024 12:47-0500 Respiratory rate 16 /min Jessie Hurt FITTER MACHINIST.[employer] Work Phone: [facility] 06-19-2024 12:47-0500 Systolic blood pressure 121 mm[Hg] Jessie Hurt FITTER MACHINIST.[employer] Work Phone: [facility] 06-04-2024 11:43-0500 Body mass index (BMI) [Ratio] 31.78 kg/m2 Ayanna Patel FITTER MACHINIST.CALL CENTER CONSULTANT Work Phone: [facility] 06-04-2024 11:43-0500 Body temperature 97.39 [degF] Ayanna Patel FITTER MACHINIST.CALL CENTER CONSULTANT Work Phone: [facility] 06-04-2024 11:43-0500 Body weight 76.3 kg Ayanna Ramon FITTER MACHINIST.CALL CENTER CONSULTANT Work Phone: [facility] 06-04-2024 11:43-0500 Diastolic blood pressure 72 mm[Hg] Ayanna Ramon FITTER MACHINIST.CALL CENTER CONSULTANT Work Phone: [facility] 06-04-2024 11:43-0500 Heart rate 63 /[facility] FITTER MACHINIST.CALL CENTER CONSULTANT Work Phone: [facility] 06-04-2024 11:43-0500 SaO2% (BldA) [Mass fraction] 99 % Ayanna Ramon FITTER MACHINIST.CALL CENTER CONSULTANT Work Phone: [facility] 06-04-2024 11:43-0500 Systolic blood pressure 134 mm[Hg] Ayanna Ramon FITTER MACHINIST.CALL CENTER CONSULTANT Work Phone: [facility] 12-15-2023 12:20-0400 Body height 154.9 cm Pulm Wstr Work Phone: [facility] 12-15-2023 12:20-0400 Body mass index (BMI) [Ratio] 31.93 kg/m2 Pulm Wstr Work Phone: [facility] 12-15-2023 12:20-0400 Body weight 76.66 kg Pulm Wstr Work Phone: [facility] 12-15-2023 12:20-0400 Heart rate 62 /min Pulm Wstr Work Phone: [facility] 12-15-2023 12:20-0400 Respiratory rate 12 /min Pulm Wstr Work Phone: [facility] 12-15-2023 12:20-0400 SaO2% (BldA) [Mass fraction] 97 % Pulm Wstr Work Phone: [facility] 12-14-2023 14:31-0400 Body height 154.9 cm Jadyn Bowden MD Work Phone: [facility] 12-14-2023 14:31-0400 Body mass index (BMI) [Ratio] 31.89 kg/m2 Jadyn Bowden MD Work Phone: [facility] 12-14-2023 14:31-0400 Body weight 76.57 kg Jadyn Bowden MD Work Phone: [facility] 12-14-2023 14:31-0400 Diastolic blood pressure 80 mm[Hg] Jadyn Bowden MD Work Phone: [facility] 12-14-2023 14:31-0400 Heart rate 70 /min Jadyn Bowden MD Work Phone: [facility] 12-14-2023 14:31-0400 Respiratory rate 18 /min Jadyn Bowden MD Work Phone: [facility] 12-14-2023 14:31-0400 SaO2% (BldA) [Mass fraction] 100 % Jadyn Bowden MD Work Phone: [facility] 12-14-2023 14:31-0400 Systolic blood pressure 128 mm[Hg] Jadyn Bowden MD Work Phone: [facility] 09-23-2023 10:49-0400 Body mass index (BMI) [Ratio] 31.37 kg/m2 Jessie Hurt FITTER MACHINIST.[employer] Work Phone: [facility] 09-23-2023 10:49-0400 Body weight 75.3 kg Jessie Hurt FITTER MACHINIST.[employer] Work Phone: [facility] 09-23-2023 10:49-0400 Diastolic blood pressure 74 mm[Hg] Jessie Hurt FITTER MACHINIST.[employer] Work Phone: [facility] 09-23-2023 10:49-0400 Heart rate 73 /min Jessie Hurt FITTER MACHINIST.[employer] Work Phone: [facility] 09-23-2023 10:49-0400 Respiratory rate 16 /min Jessie Hurt FITTER MACHINIST.[employer] Work Phone: [facility] 09-23-2023 10:49-0400 Systolic blood pressure 136 mm[Hg] Jessie Hurt FITTER MACHINIST.[employer] Work Phone: [facility] 06-07-2022 09:41-0500 Body weight 72.58 kg Jessie Hurt FITTER MACHINIST.[employer] Work Phone: [facility] 06-07-2022 09:41-0500 Diastolic blood pressure 82 mm[Hg] Jessie Hurt FITTER MACHINIST.[employer] Work Phone: [facility] 06-07-2022 09:41-0500 Heart rate 72 /min Jessie Hurt FITTER MACHINIST.[employer] Work Phone: [facility] 06-07-2022 09:41-0500 Respiratory rate 16 /min Jessie Hurt FITTER MACHINIST.[employer] Work Phone: [facility] 06-07-2022 09:41-0500 SaO2% (BldA) [Mass fraction] 98 % Jessie Hurt FITTER MACHINIST.[employer] Work Phone: [facility] 06-07-2022 09:41-0500 Systolic blood pressure 136 mm[Hg] Jessie Hurt FITTER MACHINIST.[employer] Work Phone: [facility] 06-03-2022 11:25-0500 Body temperature 98.01 [degF] Jessie Hurt FITTER MACHINIST.[employer] Work Phone: [facility] 06-03-2022 11:25-0500 Body weight 71.67 kg Jessie Hurt FITTER MACHINIST.[employer] Work Phone: [facility] 06-03-2022 11:25-0500 Diastolic blood pressure 78 mm[Hg] Jessie Hurt FITTER MACHINIST.[employer] Work Phone: [facility] 06-03-2022 11:25-0500 Heart rate 82 /min Jessie Hurt FITTER MACHINIST.[employer] Work Phone: [facility] 06-03-2022 11:25-0500 Respiratory rate 16 /min Jessie Hurt FITTER MACHINIST.[employer] Work Phone: [facility] 06-03-2022 11:25-0500 SaO2% (BldA) [Mass fraction] 98 % Jessie Hurt FITTER MACHINIST.[employer] Work Phone: [facility] 06-03-2022 11:25-0500 Systolic blood pressure 128 mm[Hg] Jessie Blu FITTER MACHINIST.CURTAIN CUTTER HAND Work Phone: [facility] 05-26-2022 11:25-0500 Body temperature 98.1 [degF] Lyn Praisler-Wood FITTER MACHINIST.CALL CENTER CONSULTANT Work Phone: [facility] 05-26-2022 11:25-0500 Body weight 75.66 kg Lyn Praisler-Wood FITTER MACHINIST.CALL CENTER CONSULTANT Work Phone: [facility] 05-26-2022 11:25-0500 Diastolic blood pressure 78 mm[Hg] Lyn Praisler-Wood FITTER MACHINIST.CALL CENTER CONSULTANT Work Phone: [facility] 05-26-2022 11:25-0500 Heart rate 79 /min Lyn Praisler-Wood FITTER MACHINIST.CALL CENTER CONSULTANT Work Phone: [facility] 05-26-2022 11:25-0500 Respiratory rate 21 /min Lyn Praisler-Wood FITTER MACHINIST.CALL CENTER CONSULTANT Work Phone: [facility] 05-26-2022 11:25-0500 SaO2% (BldA) [Mass fraction] 98 % Lyn Praisler-Wood FITTER MACHINIST.CALL CENTER CONSULTANT Work Phone: [facility] 05-26-2022 11:25-0500 Systolic blood pressure 122 mm[Hg] Lyn Praisler-Wood FITTER MACHINIST.CALL CENTER CONSULTANT Work Phone: [facility] 11-27-2021 02:15-0400 Body temperature 98.2 [degF] [facility] Work Phone: 11-27-2021 02:15-0400 Diastolic blood pressure 107 mm[Hg] [facility] Work Phone: 11-27-2021 02:15-0400 Heart rate 82 /min [facility] Work Phone: 11-27-2021 02:15-0400 Respiratory rate 20 /min [facility] Work Phone: 11-27-2021 02:15-0400 SaO2% (BldA) [Mass fraction] 98 % [facility] Work Phone: 11-27-2021 02:15-0400 Systolic blood pressure 164 mm[Hg] [facility] Work Phone: 11-26-2021 23:23-0400 Body height 152.4 cm [facility] Work Phone: 11-26-2021 23:23-0400 Body mass index (BMI) [Ratio] 31.6 kg/m2 [facility] Work Phone: 11-26-2021 23:23-0400 Body weight 73.48 kg [facility] Work Phone: 10-13-2021 08:07-0400 Diastolic blood pressure 88 mm[Hg] Jessie Hurt FITTER MACHINIST.CURTAIN CUTTER HAND Work Phone: [facility] 10-13-2021 08:07-0400 Systolic blood pressure 160 mm[Hg] Jessie Hurt FITTER MACHINIST.CURTAIN CUTTER HAND Work Phone: [facility] 10-13-2021 08:06-0400 Body weight 72.58 kg Jessie Hurt FITTER MACHINIST.CURTAIN CUTTER HAND Work Phone: [facility] 10-13-2021 08:06-0400 Heart rate 72 /min Jessie Hurt FITTER MACHINIST.CURTAIN CUTTER HAND Work Phone: [facility] 10-13-2021 08:06-0400 Respiratory rate 16 /min Jessie Hurt FITTER MACHINIST.CURTAIN CUTTER HAND Work Phone: [facility] Encounters Encounter Date Encounter Type Care Provider Facility Start: 01-18-2025 ambulatory [facility] Facility:[facility] Start: 01-18-2025 End: 01-18-2025 Subsequent hospital visit by physician Xr [facility] Work Phone: Radiology Comment on above: Right leg pain [M79. 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 Jadyn Bowden MD Work Phone: -Emergency Department Work Phone: Start: 12-28-2024 End: 12-28-2024 Patient encounter procedure Debbi KNOTT -[facility] Work Phone: Start: 12-28-2024 End: 12-28-[address] Jadyn Bowden MD Work Phone: -[facility] Start: 12-28-2024 End: 12-28-2024 ambulatory [facility] Facility:[facility] Start: 11-29-2024 End: 12-10-2024 Telephone encounter Luis MALDONADO Navigation Start: 11-12-2024 End: 01-12-2025 Follow-up encounter Jessie Hurt APRN.CURTAIN CUTTER HAND Work Phone: [facility] [place] Start: 11-12-2024 End: 11-12-2024 Telephone encounter Luis MALDONADO Navigation Start: 11-08-2024 End: 11-08-2024 Office outpatient visit 25 minutes Jessie Hurt APRN.CURTAIN CUTTER HAND Work Phone: [facility] [place] Comment on above: Recurrent UTI (Prima ry Dx); UTI symptoms; Macular degeneration, unspecified laterality, unspecified type; Self-care deficit Start: 11-08-2024 End: 11-08-2024 ambulatory [facility] Facility:[facility] Start: 09-14-2024 End: 11-14-2024 Follow-up encounter Jessie Hurt APRN.CURTAIN CUTTER HAND Work Phone: [facility] [place] Start: 09-13-2024 End: 09-13-2024 ambulatory [facility] Facility:[facility] Start: 09-10-2024 End: 09-10-2024 Telephone encounter Jadyn Bowden MD Work Phone: [facility] [place] Comment on above: UTI Start: 09-10-2024 End: 09-10-2024 Office outpatient visit 15 minutes Jessie Hurt FITTER MACHINIST.CURTAIN CUTTER HAND Work Phone: [facility] [place] Comment on above: UTI symptoms (Primar y Dx); Positional lightheadedness Start: 09-10-2024 End: 09-10-2024 ambulatory [facility] Facility:[facility] Start: 08-17-2024 End: 08-17-2024 ambulatory [facility] Facility:[facility] Start: 08-06-2024 End: 08-06-[address] Jadyn Bowden MD Work Phone: [facility] Work Phone: Start: 08-06-2024 End: 08-06-[address] Rick Bermudez MD -Laboratory Work Phone: Start: 08-06-2024 End: 08-06-[address] Rick Bermudez MD -[facility] Work Phone: Start: 08-06-2024 End: 08-06-2024 [facility] Facility[facility] Start: 08-06-2024 End: 08-06-2024 [facility]ulatory [facility] Start: 08-02-2024 End: 08-02-2024 Telephone encounter Jessie Hurt APRN.CURTAIN CUTTER HAND Work Phone: [facility] [place] Comment on above: Results (UTI) Start: 06-29-2024 End: 06-29-2024 ambulatory JADYN BOWDEN Facility:[facility] Start: 06-29-2024 End: 06-29-2024 Telephone encounter Jadyn Bowden MD Work Phone: [facility] [place] Comment on above: Results Start: 06-19-2024 End: 06-19-2024 ambulatory JESSIEMagnolia HURT Facility:[facility] Start: 06-19-2024 End: 06-19-2024 Office outpatient visit 25 minutes Jessie Hurt FITTER MACHINIST.CURTAIN CUTTER HAND Work Phone: [facility] [place] Comment on above: Controlled type 2 di abetes mellitus without complication, without long-term current use of insulin (HCC) (Primary Dx); Microalbuminuria; Mixed hyperlipidemia; S/P coronary artery stent placement; Primary hypertension; PAF (paroxysmal atrial fibrillation) ([facility]); Vitamin D deficiency; Encounter for immunization; Lichen planus Start: 06-04-2024 End: 06-04-2024 ambulatory JADYN BOWDEN Facility:[facility] Start: 06-04-2024 End: 06-04-2024 Patient encounter procedure Ayanna Patel APRN.CALL CENTER CONSULTANT Work Phone: [facility] [place] Comment on above: Dysuria (Primary Dx) Start: 03-20-2024 ambulatory Jadyn Bowden Facilit y:[facility] Start: 03-19-2024 ambulatory Rick Aidan [facility] Start: 03-19-2024 End: 03-19-2024 ambulatory Rick Aidan Facility:[facility] Start: 03-02-2024 ambulatory Jadyn Bowden Facilit y:[facility] Start: 03-02-2024 ambulatory Rick Aidan [facility] Start: 03-02-2024 End: 03-02-2024 ambulatory Rick Aidan Facility:[facility] Start: 02-16-2024 End: 02-17-2024 ambulatory Rick Aidan Facility:[facility] Start: 12-19-2023 Telephone encounter Jadyn patterson MD Work Phone: [facility] [place] Comment on above: results of labs and lung studies Start: 12-15-2023 End: 12-15-2023 ambulatory [facility] Work Phone: [facility] Comment on above: Spirometry Start: 12-15-2023 End: 12-15-2023 Patient encounter procedure [facility] Work Phone: [facility] Start: 12-14-2023 End: 12-14-2023 Patient encounter procedure Jadyn Bowden MD Work Phone: [facility] [place] Comment on above: Medicare annual well ness visit, subsequent (Primary Dx); Controlled type 2 [...] Jadyn patterson MD Work Phone: [facility] [place] Comment on above: Pharmacy Call Start: 09-23-2023 End: 09-23-2023 Office outpatient visit 15 minutes Jessie Hurt APRN.CURTAIN CUTTER HAND Work Phone: [facility] [place] Comment on above: Lower abdominal pain (Primary Dx); Dysuria; Lichen planus; UTI symptoms Start: 07-14-2023 ambulatory [facility] Boyd [facility] [place] Comment on above: Population Health Na vigation Outreach (Med adherence) Start: 06-11-2022 Telephone encounter Jessie vasques FITTER MACHINIST.CURTAIN CUTTER HAND Work Phone: [facility] [place] Comment on above: Results Start: 06-07-2022 End: 06-07-2022 Office outpatient visit 15 minutes Jessie Hurt APRN.CURTAIN CUTTER HAND Work Phone: [facility] [place] Comment on above: Acute cough (Primary Dx) Start: 06-04-2022 Telephone encounter Jessie vasques FITTER MACHINIST.CURTAIN CUTTER HAND Work Phone: [facility] [place] Comment on above: Results (CXR) Start: 06-03-2022 End: 06-03-2022 Subsequent hospital visit by physician Raquel [facility] [place] Work Phone: Radiology Comment on above: Acute cough [R05.1] Start: 06-03-2022 End: 06-03-2022 Office outpatient visit 25 minutes Jessie Hurt APRN.CURTAIN CUTTER HAND Work Phone: [facility] [place] Comment on above: Acute cough (Primary Dx); Mixed hyperlipidemia; Controlled type 2 diabetes mellitus without complication, without long-term current use of insulin (HCC); Viral URI with cough; Shortness of breath Start: 05-26-2022 End: 05-26-2022 Patient encounter procedure Lyn Bernard APRN.CALL CENTER CONSULTANT Work Phone: [facility] Comment on above: Viral URI with cough (Primary Dx); Laryngitis Start: 03-03-2022 ambulatory [facility] [place] Comment on above: Population Health Na vigation Outreach (HCC/) Start: 11-27-2021 Evaluation and manag ement of inpatient [facility] Start: 11-02-2021 Refill Jadyn stevens MD Work Phone: [facility] [place] Comment on above: Refill Request Start: 10-13-2021 Telephone encounter Jessie vasques APRN.CURTAIN CUTTER HAND Work Phone: [facility] [place] Comment on above: Xray Results Start: 10-13-2021 End: 10-13-2021 Subsequent hospital visit by physician Raquel [facility] Work Phone: Radiology Comment on above: Abnormal prominence of clavicle [Q74.0] Start: 10-13-2021 End: 10-13-2021 Patient encounter procedure Jessie Hurt APRN.CURTAIN CUTTER HAND Work Phone: [facility] [place] Comment on above: Abnormal prominence of clavicle (Primary Dx); Adjustment insomnia Start: 10-30-2020 End: 10-30-2020 Subsequent hospital visit by physician Raquel [facility] Work Phone: Radiology Comment on above: Injury of left foot, initial encounter [S99.922A] Start: 09-06-2017 Ambulatory FELICE PEARSON Facility :[facility] Start: 03-08-2017 End: [facility]08[facility] Procedures Date Procedure Procedure Detail Performing Clinician Start: 01-18-2025 Radex ankle complete minimum 3 views Jessie Hurt FITTER MACHINIST.CURTAIN CUTTER HAND Work Phone: Start: 11-08-2024 Urnls dip stick/tabl et rgnt auto w/o microscopy Jessie Hurt FITTER MACHINIST.CURTAIN CUTTER HAND Work Phone: Start: 09-10-2024 Urnls dip stick/tabl et rgnt auto w/o microscopy Jessie Hurt FITTER MACHINIST.CURTAIN CUTTER HAND Work Phone: Start: 12-15-2023 Co diffusing capacity L sobia Bowden MD Work Phone: Start: 12-14-2023 Urine albumin quantitative Jadyn Bowden MD Work Phone: Start: 12-14-2023 Hemoglobin A1c/Hemoglobin.total in Blood Jadyn Bowden MD Work Phone: Start: 12-14-2023 Adult depression screening assessment Pulm [facility] Work Phone: Start: 09-23-2023 Urnls dip stick/tabl et rgnt auto w/o microscopy Jessie Hurt FITTER MACHINIST.CURTAIN CUTTER HAND Work Phone: Start: 06-03-2022 Radiologic exam ches t 2 views Jessie Hurt FITTER MACHINIST.CURTAIN CUTTER HAND Work Phone: Start: 05-26-2022 STREP A MOLECULAR (POC) Lyn Bernard FITTER MACHINIST.CALL CENTER CONSULTANT Work Phone: Start: 11-26-2021 Plain chest X-ray Start: 10-13-2021 Radex clavicle complete Jessie Hurt FITTER MACHINIST.CURTAIN CUTTER HAND Work Phone: Start: 10-30-2020 Radex foot complete minimum 3 views Jessie Hurt FITTER MACHINIST.CURTAIN CUTTER HAND Work Phone: Start: 07-15-2015 History of placement of stent for coronary artery disease S/P coronary artery stent placement Jessie Hurt FITTER MACHINIST.CURTAIN CUTTER HAND Work Phone: H/O: surgery History of basal cell carcinoma (BCC) excision Jadyn Bowden MD Work Phone: History of placement of stent for coronary artery disease S/P coronary artery stent placement Jessie Hurt FITTER MACHINIST.CURTAIN CUTTER HAND Work Phone: Plan of Treatment Date Care Activity Detail Author Start: 06-19-2025 Covid-19 Vaccine (#1) Covid-19 Vacci ne (#1) [facility] Comment on above: Postponed from 08/23 (Declined at this time) Start: 06-19-2025 Hepatitis B screening Urine Al bumin:Creatinine Ratio [facility] Start: 06-19-2025 Hepatitis B surface antibody level LDL Cholesterol [facility] Start: 02-14-2025 End: 02-14-2025 Patient encounter procedure 02/14/2025 1:40 PM EDT Office Visit [facility] [place] [address] [place], [place] [id number] Jessie Hurt APRN.CURTAIN CUTTER HAND [address] [place], [place] [id number] wellness, A1c [facility] [place] Comment on above: wellness, A1c Start: 01-22-2025 End: 01-22-2025 Patient encounter procedure 01/22/2025 10:00 AM EDT Office Visit Vascular Surgery [address] [place], [place] [id number] Dx: Right leg pain [M79.604]; Acute right ankle pain [M25.571]; 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 [Z79.01]; Atrial fibrillation, unspecified type (HCC) [I48.91] [facility] Comment on above: Dx: Right leg pain [ M79.604]; Acute right ankle pain [M25.571]; 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 [Z79.01]; Atrial fibrillation, unspecified type (HCC) [I48.91] Start: 01-21-2025 Influenza vaccination C [facility] Start: 01-10-2025 [facility] Start: 12-21-2024 End: 12-21-2024 Patient encounter procedure 12/21/2024 1:40 PM EDT Office Visit [facility] [place] [address] [place], [place] [id number] Jadyn Bowden MD [address] [place] [address] Medicare Wellness [facility] [place] Comment on above: Medicare Wellness Start: 12-17-2024 Hemoglobin A1c measurement HbA1C [facility] Start: 12-13-2024 Anxiety Screening Anxiety Screening [facility] Start: 12-13-2024 Depression Screening Depression Scre ening [facility] Start: 12-13-2024 Hepatitis B screening Urine Al bumin:Creatinine Ratio [facility] Start: 11-19-2024 Influenza vaccination Influenza Vacc ine (#1) [facility] Comment on above: Postponed from 01/21 (Declined at this time) Start: 06-29-2024 End: 09-28-2024 Bacteria identified in Urine by Culture BACTERIAL CULTURE, URINE Microbiology Routine UTI symptoms Expected: 06/29/2024, Expires: 09/28/2024 [facility] Work Phone: Comment on above: Expected: 06/29/2024 , Expires: 09/28/2024 Start: 06-29-2024 End: 09-28-2024 Urinalysis complete panel - Urine URINALYSIS, WITH MICROSCOPIC Lab Routine UTI symptoms Expected: 06/29/2024, Expires: 09/28/2024 [facility] Comment on above: Expected: 06/29/2024 , Expires: 09/28/2024 Start: 06-19-2024 End: 09-18-2024 25-hydroxyvitamin D3 [Mass/volume] in Serum or Plasma [facility] Comment on above: Expected: 06/19/2024 , Expires: 09/18/2024 Start: 06-19-2024 End: 09-18-2024 CBC W Auto Differential panel - Blood [facility] Comment on above: Expected: 06/19/2024 , Expires: 09/18/2024 Start: 06-19-2024 End: 09-18-2024 Comprehensive metabolic 2000 panel - Serum or Plasma [facility] Comment on above: Expected: 06/19/2024 , Expires: 09/18/2024 Start: 06-19-2024 End: 09-18-2024 Hemoglobin A1c in Blood [facility] Work Phone: Comment on above: Expected: 06/19/2024 , Expires: 09/18/2024 Start: 06-19-2024 End: 09-18-2024 LIPID PANEL, NONFASTING [facility] Comment on above: Expected: 06/19/2024 , Expires: 09/18/2024 Start: 06-19-2024 End: 09-18-2024 Microalbumin/Creatinine [Mass Ratio] in Urine [facility] Comment on above: Expected: 06/19/2024 , Expires: 09/18/2024 Start: 06-19-2024 End: 09-18-2024 Urinalysis complete panel - Urine [facility] Comment on above: Expected: 06/19/2024 , Expires: 09/18/2024 Start: 06-18-2024 Hepatitis B surface antibody level LDL Cholesterol [facility] Start: 06-18-2024 End: 06-18-2024 Patient encounter procedure 06/18/2024 11:00 AM EST Office Visit [facility] [place] [address] [place], [place] [phone] Jessie Hurt APRN.CURTAIN CUTTER HAND [address] [place] [address] 6 month follow up [facility] [place] Comment on above: 6 month follow up Start: 06-15-2024 Hemoglobin A1c measurement HbA1C [facility] Start: 06-04-2024 End: 09-03-2024 Bacteria identified in Urine by Culture [facility] Work Phone: Comment on above: Expected: 06/04/2024 , Expires: 09/03/2024 Start: 05-23-2024 Advance Directive Discussion Advance Directive Discussion [facility] Start: 05-23-2024 Medicare Advantage Annual Wellness Visit Medicare Advantage Annual Wellness Visit [facility] Start: 05-15-2024 End: 08-14-2024 25-hydroxyvitamin D3 [Mass/volume] in Serum or Plasma VITAMIN D 25 HYDROXY Lab Routine Vitamin D deficiency Expected: 05/15/2024 (Approximate), Expires: 08/14/2024 [facility] Comment on above: Expected: 05/15/2024 (Approximate), Expires: 08/14/2024 Start: 05-15-2024 End: 08-14-2024 CBC panel - Blood by Automated count COMPLETE BLOOD COUNT Lab Routine Controlled type 2 diabetes mellitus without complication, without long-term current use of insulin (HCC) BENIGN HYPERTENSION Expected: 05/15/2024 (Approximate), Expires: 08/14/2024 [facility] Comment on above: Expected: 05/15/2024 (Approximate), Expires: 08/14/2024 Start: 05-15-2024 End: 08-14-2024 Comprehensive metabolic 2000 panel - Serum or Plasma COMPREHENSIVE METABOLIC PANEL Lab Routine Controlled type 2 diabetes mellitus without complication, without long-term current use of insulin (HCC) BENIGN HYPERTENSION Expected: 05/15/2024 (Approximate), Expires: 08/14/2024 [facility] Comment on above: Expected: 05/15/2024 (Approximate), Expires: 08/14/2024 Start: 05-15-2024 End: 08-14-2024 Hemoglobin A1c in Blood HEMOGLOBIN A1C Lab Routine Controlled type 2 diabetes mellitus without complication, without long-term current use of insulin (HCC) Expected: 05/15/2024 (Approximate), Expires: 08/14/2024 [facility] Work Phone: Comment on above: Expected: 05/15/2024 (Approximate), Expires: 08/14/2024 Start: 05-15-2024 End: 08-14-2024 Lipid 1996 panel - Serum or Plasma LIPID PANEL BASIC Lab Routine Controlled type 2 diabetes mellitus without complication, without long-term current use of insulin (HCC) BENIGN HYPERTENSION Mixed hyperlipidemia Expected: 05/15/2024 (Approximate), Expires: 08/14/2024 [facility] Comment on above: Expected: 05/15/2024 (Approximate), Expires: 08/14/2024 Start: 05-15-2024 End: 08-14-2024 Microalbumin/Creatinine [Mass Ratio] in Urine ALBUMIN/CREATININE RATIO, URINE Lab Routine Microalbuminuria Expected: 05/15/2024 (Approximate), Expires: 08/14/2024 [facility] Work Phone: Comment on above: Expected: 05/15/2024 (Approximate), Expires: 08/14/2024 Start: 05-15-2024 End: 08-14-2024 Urinalysis complete panel - Urine URINALYSIS, WITH MICROSCOPIC Lab Routine Microalbuminuria Expected: 05/15/2024 (Approximate), Expires: 08/14/2024 [facility] Comment on above: Expected: 05/15/2024 (Approximate), Expires: 08/14/2024 Start: 01-22-2024 Influenza vaccination C [facility] Start: 12-18-2023 Covid-19 Vaccine (#1) Covid-19 Vacci ne (#1) [facility] Comment on above: Postponed from 08/23 (Declined at this time) Start: 12-18-2023 Urine microalbumin profile DTaP,Tdap,Td Vaccine (2 - Td or Tdap) [facility] Comment on above: Postponed from 01/11 (Declined at this time) Start: 12-17-2023 Hemoglobin A1c measurement HbA1C [facility] Start: 12-14-2023 End: 12-14-2023 Patient encounter procedure 12/14/2023 2:00 PM EDT Office Visit [facility] [place] [address] [place] [address] Jadyn Bowden MD [address] [place], [place] [phone] next december 13 f/u Hermelinda [facility] [place] Comment on above: next december 13 f/u Souleymane patterson Start: 11-20-2023 Influenza vaccination Influenza Vacc ine (#1) [facility] Comment on above: Postponed from 01/21 (Declined at this time) Start: 06-07-2023 Hepatitis B screening URINE AL BUMIN:CREATININE RATIO [facility] Start: 06-07-2023 Hepatitis B surface antibody level LDL CHOLESTEROL [facility] Start: 05-23-2023 Behavioral Health Screening Behavioral Health Screening [facility] Start: 12-05-2022 Hemoglobin A1c/Hemoglobin.total in Blood HBA1C [facility] Start: 11-20-2022 End: 05-27-2023 CBC W Auto Differential panel - Blood CBC + DIFF Lab Routine Controlled type 2 diabetes mellitus without complication, without long-term current use of insulin (HCC) Expected: 11/20/2022 (Approximate), Expires: 05/27/2023 [facility] Work Phone: Comment on above: Expected: 11/20/2022 (Approximate), Expires: 05/27/2023 Start: 11-20-2022 End: 05-27-2023 Comprehensive metabolic 2000 panel - Serum or Plasma COMP METABOLIC PANEL Lab Routine Controlled type 2 diabetes mellitus without complication, without long-term current use of insulin (HCC) Expected: 11/20/2022 (Approximate), Expires: 05/27/2023 [facility] Work Phone: Comment on above: Expected: 11/20/2022 (Approximate), Expires: 05/27/2023 Start: 11-20-2022 End: 05-27-2023 Hemoglobin A1c in Blood HGB A1C Lab Routine Controlled type 2 diabetes mellitus without complication, without long-term current use of insulin (HCC) Expected: 11/20/2022 (Approximate), Expires: 05/27/2023 [facility] Work Phone: Comment on above: Expected: 11/20/2022 (Approximate), Expires: 05/27/2023 Start: 11-20-2022 End: 05-27-2023 Lipid 1996 panel - Serum or Plasma LIPID PANEL BASIC Lab Routine Controlled type 2 diabetes mellitus without complication, without long-term current use of insulin (HCC) Expected: 11/20/2022 (Approximate), Expires: 05/27/2023 [facility] Work Phone: Comment on above: Expected: 11/20/2022 (Approximate), Expires: 05/27/2023 Start: 06-03-2022 End: 08-03-2022 ALBUMIN/CREAT RATIO RND UR ALBUMIN/CREAT RATIO RND UR Lab Routine Controlled type 2 diabetes mellitus without complication, without long-term current use of insulin (HCC) Expected: 06/03/2022, Expires: 08/03/2022 [facility] Work Phone: Comment on above: Expected: 06/03/2022 , Expires: 08/03/2022 Start: 06-03-2022 End: 08-03-2022 CBC W Auto Differential panel - Blood CBC + DIFF Lab Routine Controlled type 2 diabetes mellitus without complication, without long-term current use of insulin (HCC) Expected: 06/03/2022, Expires: 08/03/2022 [facility] Work Phone: Comment on above: Expected: 06/03/2022 , Expires: 08/03/2022 Start: 06-03-2022 End: 08-03-2022 Comprehensive metabolic 2000 panel - Serum or Plasma COMP METABOLIC PANEL Lab Routine Controlled type 2 diabetes mellitus without complication, without long-term current use of insulin (HCC) Expected: 06/03/2022, Expires: 08/03/2022 [facility] Work Phone: Comment on above: Expected: 06/03/2022 , Expires: 08/03/2022 Start: 06-03-2022 End: 08-03-2022 Hemoglobin A1c in Blood HGB A1C Lab Routine Controlled type 2 diabetes mellitus without complication, without long-term current use of insulin (HCC) Expected: 06/03/2022, Expires: 08/03/2022 [facility] Work Phone: Comment on above: Expected: 06/03/2022 , Expires: 08/03/2022 Start: 06-03-2022 End: 08-03-2022 Lipid 1996 panel - Serum or Plasma LIPID PANEL BASIC Lab Routine Mixed hyperlipidemia Controlled type 2 diabetes mellitus without complication, without long-term current use of insulin (HCC) Expected: 06/03/2022, Expires: 08/03/2022 [facility] Work Phone: Comment on above: Expected: 06/03/2022 , Expires: 08/03/2022 Start: 05-26-2022 Urine microalbumin profile DTAP,TDAP,TD (2 - Td or Tdap) [facility] Comment on above: Postponed from 01/11 (Declined at this time) Start: 05-23-2022 ADVANCE DIRECTIVE DISCUSSION ADVANCE DIRECTIVE DISCUSSION [facility] Start: 05-23-2022 DEPRESSION ASSESSMENT DEPRESSION ASS ESSMENT [facility] Start: 01-21-2022 Influenza vaccination INFLUENZA (#1) [facility] Start: 11-27-2021 Verification routine [facility] Work Phone: Start: 11-27-2021 Admission procedure [facility] Work Phone: Start: 11-26-2021 [facility] Work Phone: Start: 10-30-2021 COVID-19 VACCINE (#1) COVID-19 VACCI NE (#1) [facility] Comment on above: Postponed from 08/23 (Declined at this time) Start: 10-30-2021 Hepatitis B surface antibody level LDL CHOLESTEROL [facility] Start: 05-23-2021 ADVANCE DIRECTIVE DISCUSSION ADVANCE DIRECTIVE DISCUSSION [facility] Start: 05-23-2021 DEPRESSION ASSESSMENT DEPRESSION ASS ESSMENT [facility] Start: 05-01-2021 Hemoglobin A1c/Hemoglobin.total in Blood HBA1C [facility] Start: 01-02-2019 Hepatitis B screening URINE AL BUMIN:CREATININE RATIO [facility] Start: 01-11-2017 Urine microalbumin profile [facility] Start: 08-23-2010 RSV Vaccine (1 - 1-d ose 75+ series) RSV Vaccine (1 - 1-dose 75+ series) [facility] Start: 1995 RSV Vaccine (1 - 1-d ose 60+ series) RSV Vaccine (1 - 1-dose 60+ series) [facility] Start: 08-23-1940 COVID-19 VACCINE (#1) COVID-19 VACCI NE (#1) [facility] Start: 02-23-1936 COVID-19 VACCINE (#1) COVID-19 VACCI NE (#1) [facility] Bacteria identified in Urine by Culture URINE CULTURE Microbiology Routine Lower abdominal pain Dysuria 09/23/2023 10:58 AM EDT [facility] Bacteria identified in Urine by Culture BACTERIAL CULTURE, URINE Microbiology Routine UTI symptoms 09/10/2024 12:20 PM EDT [facility] Work Phone: Bacteria identified in Urine by Culture BACTERIAL CULTURE, URINE Microbiology Routine UTI symptoms 11/08/2024 11:47 AM EDT [facility] Work Phone: Basic metabolic 2008 panel with ionized calcium - Serum or Plasma [facility] CBC W Auto Different ial panel - Blood [facility] LUNG DIFFUSION CAPAC ITY (DLCO) LUNG DIFFUSION CAPACITY (DLCO) PFT Routine COELLO (dyspnea on exertion) Abnormal CXR 12/15/2023 11:40 AM EDT [facility] Work Phone: LUNG VOLUMES LUNG VOLUMES PFT Routine COELLO (dyspnea on exertion) Abnormal CXR 12/15/2023 11:40 AM EDT [facility] Work Phone: Measurement of occul t blood in stool specimen using immunoassay [facility] Patient Education ED Epistaxis (Adult) [facility] Work Phone: Patient referral [facility] Work Phone: End: 07-03-2023 Radiologic exam chest 2 views XR CHEST 2V FRONTAL/LAT Radiology Routine Acute cough Shortness of breath 1 Occurrences starting 06/03/2022 until 07/03/2023 [facility] Work Phone: Comment on above: 1 Occurrences starti ng 06/03/2022 until 07/03/2023 Radiologic exam ches t 2 views XR CHEST 2V FRONTAL/LAT Radiology Routine Acute cough Shortness of breath 06/03/2022 12:27 PM EST [facility] Work Phone: SPIROMETRY - BASELIN E AND POST DILATOR SPIROMETRY - BASELINE AND POST DILATOR PFT Routine COELLO (dyspnea on exertion) Abnormal CXR 12/15/2023 11:40 AM EDT [facility] Work Phone: UA DIP B/O UA DIP B/O Lab R outine Lower abdominal pain Dysuria Ordered: 09/23/2023 [facility] Work Phone: Comment on above: Ordered: 09/23/2023 End: 01-17-2026 US Lower extremity vein US LEG VEIN DVT UNL VAS LAB Vascular Lab STAT Right leg pain Acute 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 Atrial fibrillation, unspecified type (HCC) 1 Occurrences starting 01/17/2025 until 01/17/2026 [facility] Comment on above: 1 Occurrences starti ng 01/17/2025 until 01/17/2026 End: 02-16-2026 XR Ankle - right AP and Lateral and oblique XR ANKLE GENERAL 3V AP/LAT/OBL RIGHT Radiology STAT Right leg pain Acute right ankle pain 1 Occurrences starting 01/17/2025 until 02/16/2026 [facility] Work Phone: Comment on above: 1 Occurrences starti ng 01/17/2025 until 02/16/2026 End: 02-16-2026 XR Tibia and Fibula - right AP and Lateral XR TIBIA FIBULA 2V AP/LAT RIGHT Radiology STAT Right leg pain Acute right ankle pain 1 Occurrences starting 01/17/2025 until 02/16/2026 [facility] Comment on above: 1 Occurrences starti ng 01/17/2025 until 02/16/2026 [facility] Immunizations Immunization Date Immunization Notes Care Provider Fa juan jose 03-02-2021 influenza, high-dose , quadrivalent vaccine (FLUZONE HIGH DOSE QUADRIVALENT) Jessie Hurt FITTER MACHINIST.CURTAIN CUTTER HAND Work Phone: [facility] Work Phone: 03-02-2021 influenza virus vacc ine, unspecified formulation Hayley Boyd MA [facility] 02-20-2021 Influenza, high dose seasonal Dr. Jadyn Bowden MD Work Phone: [facility] 02-20-2021 influenza, high dose seasonal, preservative-free Hayley Boyd MA [facility] 03-31-2020 influenza, high-dose , quadrivalent vaccine (FLUZONE HIGH DOSE QUADRIVALENT) Jessie Hurt FITTER MACHINIST.CURTAIN CUTTER HAND Work Phone: [facility] Work Phone: 02-27-2019 zoster vaccine recombinant Jessie Hurt FITTER MACHINIST.CURTAIN CUTTER HAND Work Phone: [facility] Work Phone: 12-21-2018 zoster vaccine recombinant Jessie Hurt FITTER MACHINIST.CURTAIN CUTTER HAND Work Phone: [facility] Work Phone: 03-04-2018 influenza, high dose seasonal, preservative-free Jessie Hurt FITTER MACHINIST.CURTAIN CUTTER HAND Work Phone: [facility] 02-17-2017 influenza, high dose seasonal, preservative-free Jessie Hurt FITTER MACHINIST.CURTAIN CUTTER HAND Work Phone: [facility] 09-06-2016 pneumococcal conjuga te vaccine, 13 valent Jessie Hurt FITTER MACHINIST.CURTAIN CUTTER HAND Work Phone: [facility] 02-27-2016 influenza, high dose seasonal, preservative-free Jessie Hurt FITTER MACHINIST.CURTAIN CUTTER HAND Work Phone: [facility] 03-13-2015 influenza, high dose seasonal, preservative-free Jessie Hurt FITTER MACHINIST.CURTAIN CUTTER HAND Work Phone: [facility] Work Phone: 03-06-2015 Influenza virus vaccine [facility] 03-06-2015 influenza, seasonal, injectable, preservative free Jessie Hurt FITTER MACHINIST.CURTAIN CUTTER HAND Work Phone: [facility] Work Phone: 02-27-2014 influenza, high dose seasonal, preservative-free Jessie Hurt FITTER MACHINIST.CURTAIN CUTTER HAND Work Phone: [facility] 03-03-2013 influenza virus vacc ine, unspecified formulation Jessie Hurt FITTER MACHINIST.CURTAIN CUTTER HAND Work Phone: [facility] 04-01-2012 influenza virus vacc ine, unspecified formulation Jessie Hurt FITTER MACHINIST.CURTAIN CUTTER HAND Work Phone: [facility] Work Phone: 03-26-2011 influenza virus vacc ine, unspecified formulation Jessie Hurt FITTER MACHINIST.CURTAIN CUTTER HAND Work Phone: [facility] Work Phone: 02-26-2010 influenza virus vacc ine, unspecified formulation Jessie Hurt FITTER MACHINIST.CURTAIN CUTTER HAND Work Phone: [facility] 02-22-2009 influenza virus vacc ine, unspecified formulation Jessie Hurt FITTER MACHINIST.CURTAIN CUTTER HAND Work Phone: [facility] Work Phone: 11-13-2008 pneumococcal polysaccharide vaccine, 23 valent Jessie Hurt FITTER MACHINIST.CURTAIN CUTTER HAND Work Phone: [facility] Work Phone: 05-10-2008 zoster vaccine, live Jessie savage FITTER MACHINIST.CURTAIN CUTTER HAND Work Phone: [facility] Work Phone: 03-28-2008 influenza virus vacc ine, unspecified formulation Jessie Hurt FITTER MACHINIST.CURTAIN CUTTER HAND Work Phone: [facility] Work Phone: 03-27-2007 influenza virus vacc ine, unspecified formulation Jessie Hurt FITTER MACHINIST.CURTAIN CUTTER HAND Work Phone: [facility] Work Phone: 01-11-2007 tetanus toxoid, redu giovanny diphtheria toxoid, and acellular pertussis vaccine, adsorbed Jessiemagnolia Hurt FITTER MACHINIST.CURTAIN CUTTER HAND Work Phone: [facility] Work Phone: 04-12-1996 pneumococcal polysaccharide vaccine, 23 valent Jessiemagnolia Hurt FITTER MACHINIST.CURTAIN CUTTER HAND Work Phone: [facility] Work Phone: Payers Date Payer Category Payer Self-pay [id number] 2018 Medicare (Managed Care) EMELY WAGGONER O Member Subscriber Plan / Payer (Effective 2018-Present) Name: Tasha Sweet Relation to Subscriber: Self Name: Tasha Sweet Payer ID: [id number] (NAIC) Group ID: [id number] Type: HMO Address: [address] [id number] 2018 Unknown EMELY LARA S AND BLUE SHIELD ANTHMIKAYLA MEDIBLUE O [id number] 2018-Present [phone] [address] [place] [address] [facility] [id number] 2018 Unknown [id number] 2018 Medicare [id number] 2015 Unknown [id number] Medicare SELF PAY INSURANCE [id number] Unknown [id number] Unknown [id number] Unknown [id number] [id number] Unknown [id number]. 2.462 Unknown [id number]. 2.462 Unknown [id number] [id number] Unknown [id number] [id number] Unknown [id number]. 2.462 Unknown [id number] 2.462 Unknown [id number]. 2.462 Unknown [id number]. 2.462 Unknown [id number]. [id number] Unknown [id number] [id number] Unknown [id number] Social History Date Type Detail Facility Start: 05-26-2022 End: 06-04-2024 Tobacco smoking status NHIS Ex-smoker [facility] End: 05-23-1956 History of tobacco use Current smoker [facility] Work Phone: Start: 05-26-2021 End: 11-08-2024 Alcohol intake Current non-drinker of alcohol (finding) [facility] Start: 1935 Sex Assigned At Not on file [facility] Start: 09-30-2020 End: 10-12-2021 Exposure to SARS-CoV-2 (event) Not sure [facility] Start: 11-27-2021 Tobacco smoking stat us OHIS Unknown if ever smoked [facility] Work Phone: Start: 09-26-2019 None [facility] Start: 09-26-2019 Spouse/ Signif icant Other [facility] Start: 10-18-2019 Non-smoker [facility] Start: 1935 Sex Assigned At Female [facility] End: 05-23-1956 History of tobacco use Cigarette Smoker [facility] Start: 05-26-2022 End: 06-04-2024 Tobacco use and exposure Smokeless tobacco non-user [facility] Start: 06-04-2022 End: 06-20-2023 History of Social function [facility] Work Phone: Start: 06-04-2022 End: 06-20-2023 Tobacco use panel [facility] Work Phone: Start: 04-23-2012 Adult Depression Screening Assessment 0 [facility] Work Phone: How often to you hav e a drink containing alcohol? Never [facility] Start: 02-04-2023 End: 01-10-2025 Tobacco smoking status NHIS Never smoked tobacco (finding) [facility] Start: 08-13-2024 Sex Female (finding) [facility] Medical Equipment Procedure Code Equipment Code Equipment Original Text Equipment Identifier Dates [id number], [id number] Start: 06-02-2011 End: 06-20-2023 Comment on above: Use as instructed 1 Each once daily. U se as instructed Functional Status Date Assessment Result Facility 06-25-2014 Are you deaf, or do you have serious difficulty hearing No 06/25/2014 11:14 AM Suyapa Bhatt RN No [facility] 06-25-2014 Are you blind, or do you have serious difficulty seeing, even when wearing glasses No 06/25/2014 11:14 AM Suyapa Bhatt RN No [facility] 06-25-2014 Do you have serious difficulty walking or climbing stairs No 06/25/2014 11:14 AM Suyapa Bhatt RN No [facility] 06-25-2014 Do you have difficul ty dressing or bathing No 06/25/2014 11:14 AM Suyapa Bhatt RN No [facility] 06-25-2014 Because of a physica l, mental, or emotional condition, do you have difficulty doing errands alone such as visiting a physician's office or shopping No 06/25/2014 11:14 AM Suyapa Bhatt RN No [facility] Mental Status Date Assessment Result Facility 11-27-2021 Cognitive function Awake;Alert;A ppropriate; Follows Commands [facility] Work Phone: 06-25-2014 Because of a physica l, mental, or emotional condition, do you have serious difficulty concentrating, remembering, or making decisions No 06/25/2014 11:14 AM Suyapa Bhatt RN [facility] Clinical Notes 12-28-2016 to 01-18-2025 Sagar Looney, RT(R) - 01/18/2025 12:30 PM EDTAddendum Note - Jessie Hurt APRN.CURTAIN CUTTER HAND - 01/17/2025 2:08 PM EDTAddendum Note - Jessie Hurt APRN.CURTAIN CUTTER HAND - 01/17/2025 2:08 PM EDTPatient Instructions Note Date & Type Note Facility 01-18-2025 History of Presen t illness Narrative Radiology Service Progress Note PATIENT NAME: Tasha Sweet DATE OF SERVICE: January 18, 2025 TIME: 12:54 PM PATIENT IDENTITY VERIFICATION COMPLETED USING TWO (2) IDENTIFIERS: Name and Date of confirmed by patient verbally. FALL SCREENING: Has the patient had 2 falls in the last year or 1 fall with injury or currently using an Ambulatory Assistive Device (Walker, Cane, Wheelchair, Crutches, etc.)? No PATIENT GENDER DATA: Assigned female at . status: : No status: NO. PATIENT RELEVANT IMPLANT DATA REVIEWED: Not Applicable PATIENT PRESENTS WITH AN IMPLANTABLE OR ATTACHED PHARMACEUTICAL SPECIALTY REPRESENTATIVE: No RADIOLOGY DEPARTMENT: General X-ray: Exam(s) Completed: Lower Extremity X-Ray(s): Tibia Fibula, Right and Ankle, Right PERIPHERAL IV DATA: Not applicable SIGNED BY: RT Leandra(R) January 18, 2025 12:54 PM documented in this encounter [facility] 01-18-2025 Note HNO ID: [id number] Author: SAGAR LOONEY RT(R) Service: ? Author Type: Technologist Type: Progress Notes Filed: 01/18/2025 13:03 Note Text: Radiology Service Progress Note PATIENT NAME: Tasha Sweet DATE OF SERVICE: January 18, 2025 TIME: 12:54 PM PATIENT IDENTITY VERIFICATION COMPLETED USING TWO (2) IDENTIFIERS: Name and Date of confirmed by patient verbally. FALL SCREENING: Has the patient had 2 falls in the last year or 1 fall with injury or currently using an Ambulatory Assistive Device (Walker, Cane, Wheelchair, Crutches, etc.)? No PATIENT GENDER DATA: Assigned female at . status: : No status: NO. PATIENT RELEVANT IMPLANT DATA REVIEWED: Not Applicable PATIENT PRESENTS WITH AN IMPLANTABLE OR ATTACHED PHARMACEUTICAL SPECIALTY REPRESENTATIVE: No RADIOLOGY DEPARTMENT: General X-ray: Exam(s) Completed: Lower Extremity X-Ray(s): Tibia Fibula, Right and Ankle, Right PERIPHERAL IV DATA: Not applicable SIGNED BY: RT Leandra(R) January 18, 2025 12:54 PM [facility] 01-17-2025 Note Addended by: JESSIE HURT on: 01/17/2025 02:08 PM Modules accepted: Orders [facility] 01-17-2025 Miscellaneous Notes Addended by: JESSIE HURT on: 01/17/2025 02:08 PM Modules accepted: Orders documented in this encounter [facility] 01-17-2025 Instructions Jessie Hurt APRN.CNS - 01/17/2025 1:55 PM EDT - Call [facility]ology ([facility] office today to check on restarting or adjusting your apixaban. We will also send a message - Proceed to have an x-ray of your lower leg/ankle and a leg ultrasound to rule out a stress fracture or blood clot;. - Wear shoes or slippers with good arch support instead of going barefoot. - Take Tylenol as needed for pain. Let us know if you are not continuing to feel improved. documented in this encounter [facility] 01-17-2025 Note HNO ID: [id number] Author: JESSIE HURT APRN.CNS Service: ? Author Type: Nurse Specialist Type: Progress Notes Filed: 01/17/2025 14:05 Note Text: Subjective Patient ID: Tasha is a 89 year old female who presents for ED Follow-up (01/10/25 [facility] ER for nose bleed. It was cauterized. Pt says cardiology is to tell her when to resume eliquis./Notes right ankle pain and leg since last evening). HPI The patient is an 89-year-old female with atrial fibrillation on apixaban, presenting for evaluation of new right lower extremity calf and ankle discomfort with associated numbness. Accompanied by her daughter, who is supplementing history. Phone note from earlier today excerpted: Pt phoned requesting same day appt for right ankle pain that started last night. Reports it's mild pain when attempting to walk. Using a rolator walker when walking to ease the weight on the ankle. Does not usually use a walker. No edema or redness in the ankle/foot/or leg. No injury. Reports the outside calf muscle has a little mild pain also without redness or edema. Pt reports she was seen in [facility] ER on 01/10/25 for epistaxis- ER put packing in the nose and advised pt to stop eliquis (takes for a-fib) Followed up with [facility]- who removed the packing and cauterized both nostrils. 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 Pt has not heard back about this and has been off of eliquis for 6 days now. Reports all of her other meds stayed the same after ER visit. Review of OSH records in Care Everywhere shows that she was seen at [facility] on January 10, 2025 for epistaxis. Her nose was packed. She was advised to hold Eliquis for 3 days and follow-up with ear nose and throat. Right Lower Leg Pain: - Tasha Sweet reports onset last night; described as a tired feeling. - Pain localized to the right ankle and lateral calf; does not extend to the knee. - Described as numb and weird. - Aggravated by ambulation; severe pain when walking. - No pain when sitting. - Denies back pain or pain in the back of the leg. - Denies known trauma or injury. - Frequently walks barefoot. Epistaxis: - Severe epistaxis occurred earlier this week, leading to discontinuation of Eliquis. - Epistaxis was managed with packing and cauterization. - No further episodes reported. Atrial Fibrillation: - On Eliquis for 9 years; currently held due to recent epistaxis. - Awaiting guidance from cardiology regarding resumption of medication. Followed by [facility]. No chest pain or shortness of breath. ROS Ears/Nose/Mouth/Throat: (-) epistaxis Musculoskeletal: (+) right leg pain with ambulation, (+) right leg fatigue, (-) leg swelling, (-) back pain Skin: (-) leg redness Neurological: (+) right leg numbness Objective BP 138/83 Pulse 61 Resp 16 Wt 72.8 kg (160 lb 7.9 oz) SpO2 94% BMI 30.33 kg/m? Physical Exam Vitals and nursing note reviewed. Constitutional: Appearance: Normal appearance. HENT: Head: Normocephalic and atraumatic. Eyes: Conjunctiva/sclera: Conjunctivae normal. Cardiovascular: Rate and Rhythm: Normal rate. Musculoskeletal: Comments: Some mild discomfort right [place] and right ankle sitting, increased with walking. No erythema warmth edema or cords on exam Skin: General: Skin is warm and dry. Neurological: General: No focal deficit present. Mental Status: She is alert and oriented to person, place, and time. 1. Right leg pain (M79.604) 2. Acute right ankle pain (M25.571) - Acute right lower extremity pain and paresthesia, worse with ambulation; no swelling, erythema, or trauma reported. - Differential includes musculoskeletal strain, DVT, or stress fracture. - Ordered right lower extremity X-ray to rule out stress fracture. - Ordered right lower extremity ultrasound to rule out DVT. - Advised use of supportive footwear and to avoid walking barefoot. Tylenol as needed. 3. 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 Atrial fibrillation, unspecified type (HCC) (I48.91) - Recent severe epistaxis requiring packing and cauterization; Eliquis held pending further guidance from cardiology. - Discussed risk of recurrent bleeding versus thromboembolic events (stroke, DVT) if anticoagulation is withheld. - Advised Tasha Sweet to contact cardiology directly regarding anticoagulation management. - Will [facility] note to [facility] to notify them of the situation and expedite follow-up. Jessie Hurt APRN.CURTAIN CUTTER HAND Medical Decision Making: Problems: Low: Acute, uncomplicated illness or injury Moderate: 2+ stable chronic illnesses Data: Unique source(s) for external note(s) reviewed: 1 Unique test(s) ordered: 2 Medical Decision Making Level: 4 - Moderate [facility] 01-17-2025 History of Presen t illness Narrative Subjective Patient ID: Tasha is a 89 year old female who presents for ED Follow-up (01/10/25 [facility] ER for nose bleed. It was cauterized. Pt says cardiology is to tell her when to resume eliquis./Notes right ankle pain and leg since last evening). HPI The patient is an 89-year-old female with atrial fibrillation on apixaban, presenting for evaluation of new right lower extremity calf and ankle discomfort with associated numbness. Accompanied by her daughter, who is supplementing history. Phone note from earlier today excerpted: Pt phoned requesting same day appt for right ankle pain that started last night. Reports it's mild pain when attempting to walk. Using a rolator walker when walking to ease the weight on the ankle. Does not usually use a walker. No edema or redness in the ankle/foot/or leg. No injury. Reports the outside calf muscle has a little mild pain also without redness or edema. Pt reports she was seen in [facility] ER on 01/10/25 for epistaxis- ER put packing in the nose and advised pt to stop eliquis (takes for a-fib) Followed up with [facility]- who removed the packing and cauterized both nostrils. 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 Pt has not heard back about this and has been off of eliquis for 6 days now. Reports all of her other meds stayed the same after ER visit. Review of OSH records in Care Everywhere shows that she was seen at [facility] on January 10, 2025 for epistaxis. Her nose was packed. She was advised to hold Eliquis for 3 days and follow-up with ear nose and throat. Right Lower Leg Pain: - Tasha Sweet reports onset last night; described as a tired feeling. - Pain localized to the right ankle and lateral calf; does not extend to the knee. - Described as numb and weird. - Aggravated by ambulation; severe pain when walking. - No pain when sitting. - Denies back pain or pain in the back of the leg. - Denies known trauma or injury. - Frequently walks barefoot. Epistaxis: - Severe epistaxis occurred earlier this week, leading to discontinuation of Eliquis. - Epistaxis was managed with packing and cauterization. - No further episodes reported. Atrial Fibrillation: - On Eliquis for 9 years; currently held due to recent epistaxis. - Awaiting guidance from cardiology regarding resumption of medication. Followed by [facility]. No chest pain or shortness of breath. ROS Ears/Nose/Mouth/Throat: (-) epistaxis Musculoskeletal: (+) right leg pain with ambulation, (+) right leg fatigue, (-) leg swelling, (-) back pain Skin: (-) leg redness Neurological: (+) right leg numbness Objective BP 138/83 Pulse 61 Resp 16 Wt 72.8 kg (160 lb 7.9 oz) SpO2 94% BMI 30.33 kg/m Physical Exam Vitals and nursing note reviewed. Constitutional: Appearance: Normal appearance. HENT: Head: Normocephalic and atraumatic. Eyes: Conjunctiva/sclera: Conjunctivae normal. Cardiovascular: Rate and Rhythm: Normal rate. Musculoskeletal: Comments: Some mild discomfort right richmond and right ankle sitting, increased with walking. No erythema warmth edema or cords on exam Skin: General: Skin is warm and dry. Neurological: General: No focal deficit present. Mental Status: She is alert and oriented to person, place, and time. 1. Right leg pain (M79.604) 2. Acute right ankle pain (M25.571) - Acute right lower extremity pain and paresthesia, worse with ambulation; no swelling, erythema, or trauma reported. - Differential includes musculoskeletal strain, DVT, or stress fracture. - Ordered right lower extremity X-ray to rule out stress fracture. - Ordered right lower extremity ultrasound to rule out DVT. - Advised use of supportive footwear and to avoid walking barefoot. Tylenol as needed. 3. Epistaxis (R04.0) 4. correction (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 (Z79.01) 5. Atrial fibrillation, unspecified type (HCC) (I48.91) - Recent severe epistaxis requiring packing and cauterization; Eliquis held pending further guidance from cardiology. - Discussed risk of recurrent bleeding versus thromboembolic events (stroke, DVT) if anticoagulation is withheld. - Advised Tasha Sweet to contact cardiology directly regarding anticoagulation management. - [facility] to notify them of the situation and expedite follow-up. Jessie Hurt APRN.CNS Medical Decision Making: Problems: Low: Acute, uncomplicated illness or injury Moderate: 2+ stable chronic illnesses Data: Unique source(s) for external note(s) reviewed: 1 Unique test(s) ordered: 2 Medical Decision Making Level: 4 - Moderate documented in this encounter [facility] 01-10-2025 Discharge summary [facility] 12-28-2024 Evaluation note Diagnosis Onset Date Resolution Blood in stool acute December 10:31am Epistaxis acute December 28, 2024 10:31am Aortic valve stenosis chronic Aug ust 2024 10:31am Coronary artery disease chronic A ugust 2024 10:31am Essential hypertension chronic Au marlene 2024 10:31am PAF (paroxysmal atrial fibrillation) chronic December 28, 2024 10:31am Presence of stent in coronary artery May, chronic December 28, 2024 10:31am Pulmonary hypertension chronic Au marlene 2024 10:31am Pure hypercholesterolemia chronic December 28, 2024 10:31am [facility] Work Phone: 1(934) 349-139207-21-2025 Telephone encounter Note* Telephone Encounter - Luis [...] they do not have a contract with [employer] for home care assistance. Sw also noted that Reji called [employer] and was having issues with placing patient Member ID and speaking with a signs sales representative. Patient notes that the next time [employer] calls her that she will let them know that in her area she has not found any home theater experience expert agencies that contract with them. Patient told this Sw if she finds out anything differently she will let this SW know. [facility]07-21-2025 Miscellaneous Notes* Telephone Encounter - Luis Avina [...] they do not have a contract with [facility] for home care assistance. Sw also noted that Sw called [employer] and was having issues with placing patient Member ID and speaking with a signs sales representative. Patient notes that the next time [facility] calls her that she will let them know that in her area she has not found any home theater experience expert agencies that contract with them. Patient told this Sw if she finds out anything differently she will let this SW know. * Telephone Encounter - Luis Avina MSW - 12/05/2024 10:07 AM EDT [facility] System notes patient ID that SW stated was not a correct ID. [facility] system would not allow for Sw to speak with signs sales representative. Sw called and left patient message to return SW call to discuss. * Telephone Encounter - Luis Avina MSW - 12/03/2024 11:34 AM EDT Sw tried to call patient [employer] plan to ask about home theater experience expert coverage. Sw was unable to connectwith a signs sales representative. Reji will try call another time. * Telephone Encounter - Luis Avina MSW - 11/29/2024 11:22 AM EDT Patient spoke with Reji and noted that she is going to be getting approximately 4 hours a month lighthousekeeping and meal plan assistance. Patient notes that her insurance told her that if a forensic social worker places a prior auth then advantage plan would pay for home theater experience expert. This Sw noted that she has not been able to find any home theater experience expert agencies in [place] that are innetwork with advantage plan. Sw can work on calling patient Medicare plan and see if they were actually referring to [facility] home [facility] and not home theater experience expert. Fabian Martínez notes that they do not work with [employer] so would not be able to do anything with billing for home theater experience expert services. documented in this encounterBarn[facility]07-[facility] Telephone encounter Note * Telephone Encounter - Luis Avina MSW - 12/05/2024 10:07 AM EDT Sw tried call again to [facility]. System notes patient ID that SW stated was not a correct ID. [facility] system would not allow for Sw to speak with signs sales representative. Sw called and left patient message to return SW call to discuss. [facility]07-14-2025 Telephone encounter Note* Telephone Encounter - Luis Avina MSW - 12/03/2024 11:34 AM EDT Sw tried to call patient [employer] plan to ask about home theater experience expert coverage. Sw was unable to connectwith a signs sales representative. Reji will try call another time. [facility]07-10-2025 Telephone encounter Note* Telephone Encounter - Luis Avina MSW - 11/29/2024 11:22 AM EDT Patient spoke with Reji and noted that she is going to be getting approximately 4 hours a month lighthousekeeping and meal plan assistance. Patient notes that her insurance told her that if a forensic social worker places a prior auth then advantage plan would pay for home theater experience expert. This Sw noted that she has not been able to find any home theater experience expert agencies in [place] that are innetwork with advantage plan. Reji can work on calling patient Medicare plan and see if they were actually referring to [facility] home [facility] and not home theater experience expert. Fabian Martínez notes that they do not work with [employer] so would not be able to do anything with billing for home theater experience expert services. [facility]06-23-2025 Telephone encounter Note* Telephone Encounter - Luis Avina MSW - 11/12/2024 1:30 PM EDT Reji spoke with Mira Mcmahan and she is going to reach out to patient for home theater experience expert resources. [facility]06-23-2025 Miscellaneous Notes* Telephone Encounter - Luis Avina MSW - 11/12/2024 1:30 PM EDT Reji spoke with Mira Mcmahan and she is going to reach out to patient for home theater experience expert resources. * Telephone Encounter - Luis Avina MSW - 11/12/2024 10:02 AM EDT Patient and Sw spoke regarding light housekeeping and meal prep needs. Patient notes that she believes that her insurance would help with the cost of home theater experience expert assistance. This Sw notes that she has not had many medicare advantage plans help with cost of aides. Sw noted Robbin Lowe may be of assistance. Chrissy is a Fci Advisor and helps link folks with home care, assisted living, fci care, elder law services. Patient notes that would be helpful. Sw also notes that she can mail patient [facility] Old[facility] Adult Resource Guide and Collections Assistant Agency brochures. Sw will write Sw number down on guide for any further resource needs. documented in this encounterBarnesville Hospital06-23-2025 Telephone encounter Note * Telephone Encounter - Luis Avina MSW - 11/12/2024 10:02 AM EDT Patient and Sw spoke regarding light housekeeping and meal prep needs. Patient notes that she believes that her insurance would help with the cost of home theater experience expert assistance. This Sw notes that she has not had many medicare advantage plans help with cost of aides. Sw noted Robbin Lowe may be of assistance. Chrissy is a Fci Advisor and helps link folks with home care, assisted living, fci care, elder law services. Patient notes that would be helpful. Sw also notes that she can mail patient [facility] Resource Guide and Collections Assistant Agency brochures. Sw will write Sw number down on guide for any further resource needs. [facility]06-23-2025 Progress note* Result Encounter Note - Jessie Hurt APRN.CNS - 11/12/2024 7:33 AM EDT Positive UTI [facility]06-23-2025 Miscellaneous Notes* Result Encounter Note - Jessie Hurt APRN.CNS - 11/12/2024 7:33 AM EDT Positive UTI documented in this encounterBarnesville Hospital06-19-2025 NoteHNO ID: [id number] Author: JESSIE HURT APRN.CNS Service: ? Author [...] [address] Hays at [facility]. Macular Degeneration: - Receiving intravitreal injections. [...] Referred to Dr. Nani Neal, urogynecologist in [place], for further evaluation and management. Alternatively, Dr. Suyapa Galan is available locally. - Discussed potential need for imaging studies such as ultrasound to assess bladder function. - has had a bladder suspension approximately [address] Hays at [facility] - Advised to continue adequate hydration. [...] to her own illness. - Referred to Luis forensic social worker, to explore available community services and support options. - Discussed potential future needs for assisted living or increased home support. Consult REJI Hurt APRN.CURTAIN CUTTER HAND Medical Decision Making: Problems: Moderate: 1+ chronic illnesses with change Data: Unique test(s) ordered: 2 Risk: Moderate: Drug management Medical Decision Making Level: 4 - [facility]erateReg[facility]06-19-2025 History of Present illness Narrative* Jessie Hurt APRN.CURTAIN CUTTER HAND - 11/08/2024 11:31 AM EDT Subjective Patient [...] [address] Hays at [facility]. Macular Degeneration: - Receiving intravitreal injections. [...] Referred to Dr. Nani Neal, urogynecologist in [place], for further evaluation and management. Alternatively, Dr. Suyapa Galan is available locally. - Discussed potential need for imaging studies such as ultrasound to assess bladder function. - has had a bladder suspension approximately [address] Hays at [facility] - Advised to continue adequate hydration. [...] her own illness. - Referred to Luis, forensic social worker, to explore available community services and support options. - Discussed potential future needs for assisted living or increased home support. Consult REJI Hurt APRN.CNS Medical Decision Making: Problems: Moderate: 1+ chronic illnesses with change Data: Unique test(s) ordered: 2 Risk: Moderate: Drug management Medical Decision Making Level: 4 - Moderate documented in this encounterBarnesville Hospital04-25-2025 Progress note* Result Encounter Note - Jessie Hurt APRN.CNS - 09/14/2024 8:16 AM EDT UTI symptoms improved, urine culture showed sensitivity to her treatment. [facility]04-25-2025 Miscellaneous Notes* Result Encounter Note - Jessie Hurt APRN.CNS - 09/14/2024 8:16 AM EDT UTI symptoms improved, urine culture showed sensitivity to her treatment. documented in this encounterBarnesville Hospital04-24-2025 NoteHNO ID: [id number] Author: JESSIE HURT APRN.CURTAIN CUTTER HAND Service: ? Author Type: Nurse Specialist Type: [...] Declines RSV, COvid, Flu testing. Jessie Hurt APRN.CNS Medical Decision Making: Problems: Low: Acute, uncomplicated illness or injury Risk: Moderate: Drug management Medical Decision Making Level: 3 - LowRegency Hospital Company04-21-2025 Instructions* Patient Instructions* Jessie Hurt APRN.CNS - [...] please contact the office. documented in this encounterBarnesville Hospital04-21-2025 NoteHNO ID: [id number] Author: JESSIE HURT APRN.CNS Service: ? Author [...] Complication, Without Long-Term Current Use of Insulin ([facility]) Today reports UTI symptoms. Urinary Tract Infection: [...] Take 1 tablet by mouth once daily. ([facility]) (Patient not taking: Reported on [...] hemorrhage) Essential hypertension, benig (more content not included)...[facility]04-21-2025 History of Present illness Narrative* Jessie Hurt, REJI.CURTAIN CUTTER HAND - 09/10/2024 11:40 AM EDT SUBJECTIVE: RSV [...] 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 Urinary Tract Infection: [...] tablet by mouth two times a day. ([facility]) metoprolol tartrate, short acting, (LOPRESSOR) [...] Lymph 1.00 - 4.00 k/uL 4.24 (H) Chilton% % 8.5 Abs Chilton <0.87 k/uL 1.30 (H) Eosin% % 0.3 [...] Level: 3 - Low documented in this encounterBarnesville Hospital04-21-2025 Telephone encounter Note * Telephone Encounter - [...] an appt Vickie Hurt at noon today. [facility]04-21-2025 Miscellaneous Notes* Telephone Encounter - Digna Ridley [...] an appt withJessie Hurt at noon today. documented in this encounterBarnesville Hospital03-17-2025 Evaluation note* Diagnosis Onset Date Resolution Status Admit Date Aortic valve stenosis chronic Mar 2024 1:20pm Coronary artery disease chronic M [facility] 2024 1:20pm Essential hypertension chronic [facility] 2024 1:20pm PAF (paroxysmal atrial fibrillation) chronic August 06, 2024 1:20pm Presence of stent in coronar y artery May, chronic August 06, 2024 1:20pm Pulmonary hypertension chronic [facility] 2024 1:20pm Pure hypercholesterolemia chronic August 06, 2024 1:20pm [facility] Work Phone: 1(892) 713-946803-13-2025 Telephone encounter Note* Telephone Encounter - Yumiko Aleman LPN - 08/02/2024 8:50 AM EDT Spoke with patient and she states she if feeling great. No UTI symptoms, states last prescription really worked. [facility]03-13-2025 Miscellaneous Notes* Telephone Encounter - Yumiko Aleman [...] if still with symptoms. documented in this encounterBarnesville Hospital03-13-2025 Telephone encounter Note * Telephone Encounter - Jessie Hurt APRN.VIRGILIO - 08/02/2024 8:21 AM EDT Check to see if having UTI symptoms, can send in a script for treatment if still with symptoms. [facility]02-07-2025 Telephone encounter Note* Telephone Encounter - Ángela Santillan RN - 06/29/2024 3:42 PM EST Pt called and is notified of providers results and instructions. Pt voices understanding. Pt statesarsenio has pain at the bottom of her pelvis, pressure, burning, and urinary frequency. Pt is going to see if she can get a ride in to to UA and culture tonight. Ángela Santillan RN [facility]02-07-2025 Miscellaneous Notes* Telephone Encounter - Ángela Santillan [...] results. Rocio Dejesus RN documented in this encounterBarnesville Hospital02-07-2025 Telephone encounter Note * Telephone Encounter - [...] 10 days. Authorizing Provider: JADYN BOWDEN MD [facility]02-07-2025 Telephone encounter Note* Telephone Encounter - Rocio Dejesus RN - 06/29/2024 1:40 PM EST Patient calling on her lab and urine test results, that were completed on , ordered by Jessie. Pt states she started to have urinary sx's today and was curious if her urine test showed any abnormal results. Rocio Dejesus RN [facility]01-28-2025 NoteHNO ID: [id number] Author: JESSIE HURT APRN.CURTAIN CUTTER HAND Service: ? Author Type: Nurse Specialist Type: [...] skin cancers removed in April by [facility] Mohs surgery, healing well. She is active. Weight is stable. She is not short of breath currently. Just had eye injections both eyes for macular degeneration, seems to be helping. Followed by [facility]. Taking OAC for PAF. No [...] tablet by mouth two times a day. ([facility]) losartan (COZAAR) 25 mg tablet Take 1 tablet by mouth once daily. ([facility]) metoprolol tartrate, short acting, (LOPRESSOR) 100 mg tablet Take 1 tablet by mouth two times a day. ([facility]) potassium chloride SR (MICRO-K) 8 [...] not taking: Reported on (more content not included)...[facility]01-28-2025 History of Present illness Narrative* Jessie Hurt, REJI.CURTAIN CUTTER HAND - 06/19/2024 12:37 PM EST SUBJECTIVE: RSV [...] [facility], healing well. She is active. [...] tablet by mouth two times a day. ([facility]) losartan (COZAAR) 25 mg tablet [...] Lymph 1.00 - 4.00 k/uL 4.24 (H) Chilton% % 8.5 Abs Chilton <0.87 k/uL 1.30 (H) Eosin% % 0.3 [...] Level: 4 - Moderate documented in this encounterBarnesville Hospital01-13-2025 NoteHNO ID: [id number] Author: AYANNA PATEL APRN.CALL CENTER CONSULTANT Service: ? Author Type: Nurse Practitioner Type: [...] tablet by mouth two times a day. ([facility]) losartan (COZAAR) 25 mg tablet Take 1 tablet by mouth once daily. ([facility]) metoprolol tartrate, short acting, (LOPRESSOR) [...] Patient agreeable to treatment plan. Ayanna Patel APRN.[facility]01-13-2025 History of Present illness Narrative* Ayanna Patel APRN.[facility] - 06/04/2024 11:47 AM EST CC: [...] 1 tablet by mouth once daily. (Dr. Hrenández) apixaban (ELIQUIS) 5 mg tab(s) Take 1 tablet by mouth two times a day. ([facility]) losartan (COZAAR) 25 mg tablet Take 1 tablet by mouth once daily. ([facility]) metoprolol tartrate, short acting, (LOPRESSOR) 100 mg tablet Take 1 tablet by mouth two times a day. ([facility]) hydrocortisone valerate (WESTCORT) 0.2 % [...] Patient agreeable to treatment plan. Ayanna Patel APRN.CALL CENTER CONSULTANT documented in this encounterBarnesville Hospital07-30-2024 Telephone encounter Note * Telephone Encounter - Fiordaliza Whitley RN - 12/20/2023 8:30 AM EDT Patient notified of results and provider's instructions. Patient verbalizes understanding. Fiordaliza Whitley RN [facility]07-30-2024 Miscellaneous Notes* Telephone Encounter - Fiordaliza Whitley [...] with SOB or COELLO, would refer to reinspector to decide whether needs further testing. For [...] are long. Please advise documented in this encounterBarnesville Hospital07-30-2024 Telephone encounter Note * Telephone Encounter - Marcelina Stark LPN - 12/20/2023 8:27 AM EDT Phoned patient left message to return call and ask to speak to a nurse for results. [facility]07-29-2024 Telephone encounter Note* Telephone Encounter - Jadyn [...] with SOB or COELLO, would refer to reinspector to decide whether needs further testing. For now, test does not show evidence of asthma, COPD or emphysema. [facility]07-29-2024 Telephone encounter Note* Telephone Encounter - Marcelina [...] 3 and they are long. Please advise [facility]07-25-2024 History of Present illness Narrative* Giovanna Villavicencio RPFT - 12/15/2023 12:20 PM EDT PULM FUNCTION: Provider: Jadyn Bowden MD Assisting Tech: Giovanna Villavicencio RPFT Spirometry w/BD: 1 DLCO: 1 LV - Box: 1 documented in this encounterBarnesville Hospital07-24-2024 Instructions* Patient Instructions* Jadyn Bowden MD - [...] review all the medicines you take, even [id number] medicines. As you get older, the way [...] have certain medical conditions. documented in this encounterBarnesville Hospital07-24-2024 History of Present illness Narrative* Jadyn Bowden MD - 12/14/2023 3:02 PM EDT Images from the original note were not included. This note was created using Wheelzriter. Subjective Tasha Sweet is a 88 year old female. HISTORY Tasha Sweet is a 88 year old lady here for yearly exam and follow up appointment. Reviewed had labs for cardiology yesterday. Does not care for sweets and breads like used to. Discussed DM diagnosis. Off meds. Reviewed only taking 1 potassium daily. Yesterday weak and SOB. Yessenia Vee had her get labs. [place] better after took regular meds. Stopped trazodone. [...] Lymph 1.00 - 4.00 k/uL 4.24 (H) Chilton% % 8.5 Abs Chilton <0.87 k/uL 1.30 (H) Eosin% % 0.3 [...] specialists seen: Dr. Hernández and Rogers at [facility]. Medical/Family history review Reviewed and updated problem [...] maker and/or advance care plan documented Has HCDPOA nad LW--can drop off copy. Daughters are her surrogate decision maker. Measurements BP 128/80 Pulse 70 Resp 18 Ht 154.9 cm (5' 1) Wt 76.6 kg (168 lb 12.8 oz) SpO2 100% BMI 31.89 kg/m Vision Screening: Follows with optometry/ophthalmology--seen every 6 months for dry MD Assessment/Plan Medicare annual wellness visit, subsequent () - Counseled on healthy diet and regular exercise - Fall avoidance information provided - Personalized prevention plan provided Encounter Diagnosis ICD-10-CM 1. Medicare annual wellness visit, subsequent Z 2. Controlled type 2 diabetes mellitus without [...] of medical issues. History and medications reviewed. [facility] updated as needed Refills taken care of and meds adjusted as indicated after reviewed history, exam and labs. Health Maintenance reviewed. Updated record and/or ordered tests as recorded. Encouraged on efforts at healthy diet and regular exercise and adequate sleep. Jadyn Bowden MD documented in this encounterBarnesville Hospital05-03-2024 Telephone encounter Note * Telephone Encounter - Jessie Hurt APRN.CNS - 09/23/2023 3:10 PM EDT ok [facility]05-03-2024 Miscellaneous Notes* Telephone Encounter - Jessie Hurt APRN.CNS - 09/23/2023 3:10 PM EDT ok * Telephone Encounter - Rocio Dejesus RN - 09/23/2023 11:21 AM EDT Venus with [facility] calling regarding prescription received today for patient's hydrocortisone valerate 0.2% cream . Pharmacy is requesting instructions for how many times per day this is to be used. Please advise, . Rocio Dejesus RN documented in this encounterBarnesville Hospital05-03-2024 Telephone encounter Note * Telephone Encounter - Rocio Dejesus RN - 09/23/2023 11:21 AM EDT Venus with [facility] calling regarding prescription received today for patient's hydrocortisone valerate 0.2% cream . Pharmacy is requesting instructions for how many times per day this is to be used. Please advise, . Rocio Wurst, RN [facility]05-03-2024 History of Present illness Narrative* Jessie Hurt, REJI.CURTAIN CUTTER HAND - 09/23/2023 10:40 AM EDT No chief [...] Level: 3 - Low documented in this encounterBarnesville Hospital05-03-2024 Instructions* Patient Instructions* eJssie Hurt APRN.CNS - 09/23/2023 9:41 AM EDT [...] treated. A physician, nurse practitioner or physician general office assistant may treat with a short course [...] women if symptoms resolve. documented in this encounterBarnesville Hospital02-22-2024 History of Present illness Narrative* Hayley Boyd [...] Reason for Outreach Med Adherence Payer: Payor: [facility] Federated Sample [facility] / Plan: [employer] MEDICARE ADVANTAGE HMO / Product Type: HMO / Care Gap Reviewed:: N/A Reminder: Reminder note to check Health Maintenance for items below Health Maintenance items due: RSV Vaccine(1 - 1-dose 60+ series) Never done Urine Albumin:Creatinine Ratio due on 06/07/2023 Navigation Signature: Hayley Boyd MA July 14, 2023 1:36 PM documented in this encounterBarn[facility]ville Hospital01-20-2023 Miscellaneous Notes* Telephone Encounter - Ángela Santillan RN - 06/11/2022 3:58 PM EST Pt called and is notified of providers results and instructions. Pt voices understanding. Ángela Santillan RN * Telephone Encounter - Jessie Hurt APRN.CNS - 06/11/2022 3:39 PM EST Please let her know labs are in acceptable range considering her recent illness. Recommend getting Approximately 64 ounces of fluid per day. Would recheck in 6 months before her next visit. documented in this encounterBarnesville Hospital01-17-2023 Miscellaneous Notes* Telephone Encounter - Julieta Desai [...] acute findings on CXR. documented in this encounterBarnesville Hospital01-16-2023 History of Present illness Narrative* Jessie Hurt [...] Level: 3 - Low documented in this encounterBarnesville Hospital01-12-2023 Miscellaneous Notes* Result Encounter Note - Jessie Hurt APRN.CNS - 06/03/2022 12:20 PM EST No acute findings documented in this encounterBarnesville Hospital01-12-2023 Progress note* Result Encounter Note - Jessie Hurt APRN.CNS - 06/03/2022 12:20 PM EST No acute findings [facility] History of Present illness Narrative* Jessie Hurt APRN.CURTAIN CUTTER HAND - 06/03/2022 11:20 AM EST SUBJECTIVE Tasha [...] Level: 4 - Moderate documented in this encounterBarnesville Hospital01-04-2023 Instructions* Patient Instructions* Lyn Bernard APRN.[facility] - 05/26/2022 11:47 AM EST ASSESSMENT/PLAN: 1. [...] Discussed expected course of illness Lyn Bernard APRN.MAXIMILIAN Treatment for Viral Upper Respiratory Tract Infections [...] fluids help open respiratory and sinus passages [place] may offer relief of nasal and head [...] worse rather than better documented in this encounterBarnesville Hospital01-04-2023 History of Present illness Narrative* Lyn Bernard APRN.MAXIMILIAN - 05/26/2022 11:41 AM EST Subjective Cough [...] Discussed expected course of illness Lyn Bernard APRN.MAXIMILIAN documented in this encounterBarnesville Hospital10-12-2022 History of Present illness Narrative* Vee Roque [...] Outreach HCC or suspected condition Payer: Payor: [employer] Federated Sample [facility] / Plan: trust[employer]afe HMO / Product Type: HMO / Care [...] Message Sent to Practice: No Vee Roque Population Health Navigator March 03, 2022 1:18 PM documented in this encounterBarnesville Hospital06-13-2022 Miscellaneous Notes* Telephone Encounter - Jadyn Bowden [...] you. Marcelina Stark LPN documented in this encounterBarnesville Hospital05-24-2022 Miscellaneous Notes* Telephone Encounter - Yumiko Rivera LPN - 10/13/2021 2:55 PM EDT No answer. Left providers message and ask to call with any question or concerns * Telephone Encounter - Jessie Hurt APRN.CNS - 10/13/2021 2:15 PM EDT Please let her know that x-ray shows some arthritis otherwise normal clavicles. documented in this encounterBarnesville Hospital05-24-2022 History of Present illness Narrative* Juju Ohara, RT(R) - 10/13/2021 8:45 AM EDT Radiology Service [...] IV DATA: Not applicable SIGNED BY: RT Kale(R) October 13, 2021 8:39 AM documented in this encounterBarnesville Hospital05-24-2022 History of Present illness Narrative* Jessie Hurt APRN.CURTAIN CUTTER HAND - 10/13/2021 8:00 AM EDT Images from [...] She notes ongoing difficulties since her from [facility] in March. They were for 69 years. [...] - TRAZODONE 50 MG TABLET Jessie Hurt APRN.CURTAIN CUTTER HAND Medical Decision Making: Problems: Minimal: Self-limited or minor problem Moderate: 1+ chronic illnesses with change Data: Unique test(s) ordered: 1 Risk: Moderate: Drug management Medical Decision Making Level: 4 - Moderate documented in this encounterBarnesville Hospital06-10-2021 History of Present illness Narrative* Juju Ohara [...] IV DATA: Not applicable SIGNED BY: RT Kale(R) October 30, 2020 12:49 PM documented in this encounterBarnesville Hospital05-15-2020 History of Past illness Narrative* Problem Noted Date Diagnosed Date Resolved Date 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 01/18/2023 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 Obesity, Class I, BMI 30-34.9 12/28/2016 04/05/2018 documented as of this encounter (statuses as of 07/14/2023) [facility] History of Past illness Narrative* Problem Noted Date Resolved Date Obesity, Class I, BMI 30-34.9 12/28/2016 documented as of this encounter (statuses as of 10/13/2021) [facility] of Past illness Narrative* Problem Noted Date Resolved Date Obesity, Class I, BMI 30-34.9 12/28/2016 documented as of this encounter (statuses as of 10/13/2021) [facility] of Past illness Narrative* Problem Noted Date Resolved Date Obesity, Class I, BMI 30-34.9 12/28/2016 documented as of this encounter (statuses as of 11/02/2021) [address]08-2017 History of Past illness Narrative* Problem Noted Date Resolved Date Obesity, Class I, BMI 30-34.9 12/28/2016 documented as of this encounter (statuses as of 03/03/2022) [address]08-2017 History of Past illness Narrative* Problem Noted Date Resolved Date Obesity, Class I, BMI 30-34.9 12/28/2016 documented as of this encounter (statuses as of 05/28/2022) [address]08-2017 History of Past illness Narrative* Problem Noted Date Resolved Date Obesity, Class I, BMI 30-34.9 12/28/2016 documented as of this encounter (statuses as of 06/03/2022) [address]08-2017 History of Past illness Narrative* Problem Noted Date Resolved Date Obesity, Class I, BMI 30-34.9 12/28/2016 documented as of this encounter (statuses as of 06/07/2022) [address]08-2017 History of Past illness Narrative* Problem Noted Date Resolved Date Obesity, Class I, BMI 30-34.9 12/28/2016 documented as of this encounter (statuses as of 06/08/2022) [address]08-2017 History of Past illness Narrative* Problem Noted Date Resolved Date Obesity, Class I, BMI 30-34.9 12/28/2016 documented as of this encounter (statuses as of 06/11/2022) [facility] HospitalDischarge summary Author Ruslan Salguero [facility] Note Date/Time January 10, 2025 8: 56am [facility] Medical Records Department [address] [place] [address] Emergency Department Summary 01/10/25 MR#: [id number] Acct: [id number] Name: TASHA SWEET Rep #:[id number] : 1935 89 From: Ruslan Salguero DO PCP: Dr. Jadyn Bowden MD Status:RE G ER Location: ED ADDENDUM by Dr. Lonnie Santana DO on 01/10/25 at 0856 Care of the patient was turned over to me pending reevaluation after nasal packing. Patient had no further bleeding on reevaluation. Case was discussed with Dr. Corado. He recommended stopping the Eliquis. He will have the patient follow- up in his office on Tuesday. Patient was given a prescription for Keflex to cover for sinusitis. Patient and family understood and were agreeable with the plan. All questions were answered. 01/10/25 0856<Electronically signed by Lnonie Santana DO> Cosigner Signature (if applicable): cc: Dr. Jadyn Bowden MD ~* Signed HPI History of Present Illness Chief Complaint: Nosebleed Informant: patient, family and EMS Narrative Narrative: Patient is an 89-year-old female with past medical history of hypertension hyperlipidemia and paroxysmal atrial fibrillation currently on Eliquis. She states she was seen a few days ago by Dr. Mathis in the ENT office and had both right and left nostrils cauterized. Patient states she has been doing well since that time and taking all of her medication as directed. She states yesterday she took her Eliquis in the morning but not her evening dose. She states she went to bed and then woke up around 4/4:30 with sensation of something dripping out of her nose and on the back of her throat and when she went to the bathroom noticed it was blood. Secondary to her blood thinner use and repeat nasal bleeding she presents for evaluation [facility] Medical History Shortness of breath Urinary retention Internal bleeding hemorrhoids Rectal bleeding History of non-ST elevation myocardial infarction (NSTEMI) Presence of stent in coronary artery (~06/20/15) Diverticulosis Macular degeneration History of basal cell carcinoma Essential hypertension Atherosclerotic heart disease of [place] coronary artery without angina pectoris Pure hypercholesterolemia Diabetes mellitus type II, controlled PAF (paroxysmal atrial fibrillation) Lichen planus Home Medications ?Medication ?Instructions ?Recorded ?Last Taken ?Type cyanocobalamin (vitamin B-12) 1,000 mcg PO DAILY SUPPL EMENT 09/26/19 09/25/19 History 1,000 mcg tablet sulfasalazine 500 mg tablet 500 mg PO Q6H PRN PRN SKIN 09/26/19 09/25/19 History cholecalciferol (vitamin D3) 25 5,000 unit PO DAILY [place] N SUPPLEMENT 02/16/24 Unknown History mcg (1,000 unit) tablet vitamins A,C,P-zhbt-jcxrmq 4,296 1 cap PO QDAY 4 Unknown History mcg-226 mg-90 mg capsule (PreserVision AREDS) apixaban 5 mg tablet 5 mg PO BID #180 tabs Unknown Rx metoprolol tartrate 100 mg tablet 100 mg PO BID heart #180 tabs 08/08/24 Unknown Rx atorvastatin 40 mg tablet 40 mg PO QDAY #90 tabs 09/04 Unknown Rx furosemide 40 mg tablet 40 mg PO QDAY #90 tabs 09/04 Unknown Rx losartan 100 mg tablet 100 mg PO QAM #90 tabs 09/04 Unknown Rx amlodipine 5 mg tablet 5 mg PO QHS #90 tabs 5 Unknown Rx potassium chloride 8 mEq 8 meq PO DAILY #90 caps 10/21 01/14 Unknown Rx capsule,extended release Allergy/AdvReac Type Severity Reaction Status Date / Time codeine AdvReac Nausea Verified 01/10/25 05:11 lisinopril AdvReac Cough Verified 01/10/25 05:11 Family History Mother Hypertension Heart disease Diabetes Father Diabetes Hypertension Sister Hypertension Diabetes Sister Diabetes Hypertension Sister Diabetes Hypertension Sister Diabetes Hypertension Surgical History History of hemorrhoidectomy (~10/2019) History of colonoscopy (~09/2019) History of total hysterectomy History of repair of rotator cuff History of bilateral oophorectomy Presence of coronary angioplasty implant and graft (~06/20/15) Social History Smoking Status: Never smoker alcohol intake: never substance use type: does not use caffeine: No ROS ROS ED Constitutional Constitutional ED: Denies chills or fever(s) ENT ENT ED: Reports other Details: Positive nosebleed ; Denies sore throat Cardiovascular Cardiovascular: Denies chest pain, palpitations or racing heartbeat Respiratory/Chest Respiratory/Chest: Reports cough; Denies dyspnea Gastrointestinal Gastrointestinal: Denies abdominal pain, diarrhea, nausea or vomiting Musculoskeletal Musculoskeletal: Denies neck pain Integumentary Denies rash Neurologic Neurologic: Denies headache(s) Psychiatric Psychiatric: Reports anxiety Hematologic/Lymphatic Hematologic/Lymphatic: Reports easy bleeding and easy bruising EXAM Physical Exam Const Vital Signs: 01/10/25 05:12 01/10/25 07:11 Temperature 96.6 F L Temperature Source Temporal Pulse Rate 89 83 Respiratory Rate 16 18 Blood Pressure 209/94 H 201/99 H Blood Pressure Mean 132 133 Pulse Ox 98 99 Oxygen Delivery Method Room Air Positive well nourished and well developed General Appearance ED: well developed; Negative for pallor HEENT HEENT Narrative: Patient has brisk dark red bleeding out of both nostrils but mainly from the left side There is active drainage noted in the posterior pharynx as well No tongue or lip swelling no oral lesions no airway edema or compromise. Eyes PERRL and EOMs intact bilaterally General Eye ED: Negative for pale conjunctiva or scleral icterus Neck supple Resp normal respiratory effort and clear to auscultation bilaterally Resp Narrative: No nasal flaring retractions tachypnea or accessory muscle use Cardio regular rate and regular rhythm Extremity normal to inspection Neuro oriented x3, CN's II-XII intact bilaterally and no sensory deficits noted Sensorium / Orientation: alert Motor Exam: strength 5/5 throughout Psych Mood & Affect: anxious Skin no rashes or lesions noted Skin Narrative: Capillary refill is less than 3 seconds General Skin Exam: Negative for jaundice or pallor MDM MDM MDM Narrative Medical decision making narrative: Patient arrived to the ER hypertensive but has a past medical history of this has not taken her morning blood pressure medications and states she is anxious. She is on Eliquis but she states bleeding started spontaneously roughly 1 hour prior to arrival. Based on her skin color capillary refill mental status and hypertension I have low concern for acute blood loss anemia and feel no need foremergent laboratory studies. On physical exam it seemed that the blood was morepersistent or more intense from the left nostril so initially I placed a 5.5 cm rapid Rhino. After a few minutes bleeding persisted so this was removed and shewas placed on a 7.5 cm rapid Rhino. This seemed to achieve hemostasis. She waswatched for approximately an hour and a half and there did not seem to be bleeding in the left side posterior pharynx or breakthrough bleeding from the left nostril. However there was a mild persistent bleed out of the right nostril and in the right posterior pharynx so a 5.5 cm rapid Rhino was placed inthe right nostril. The case was then discussed with the ENT on-call Dr. Corado. He states he prefers Merisel packing. Therefore I removed the rapid Rhino's and placed a 8 cm Merisel in both the left and right nostril. The patient initially had improvement of her blood pressure after treatment with IM Ativan secondary to her anxiety. However after having to pack both sides of hernasal passage remove them and packed them again blood pressure went up secondaryto irritation and pain. Therefore I ordered her home medication. At this time she is awake and alert and reevaluation does not display any breakthrough bleeding from the nostrils or in the posterior pharynx. She will need to be watched for roughly 1 hour and then the case discussed once again with ENT. As that evaluation is still pending the patient will be signed out to day physicianDr. 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 Instructions: ED Epistaxis (Adult) Prescriptions: No Action PreserVision AREDS 4,296 mcg-226 mg-90 mg capsule 1 cap PO QDAY apixaban 5 mg tablet 5 mg PO BID Qty: 180 3RF sulfasalazine 500 MG tablet 500 mg PO Q6H PRN PRN (Reason: SKIN) cyanocobalamin (vitamin B-12) 1,000 MCG tablet 1,000 mcg PO DAILY cholecalciferol (vitamin D3) 25 mcg (1,000 unit) tablet 5,000 unit PO DAILY PRN (Reason: SUPPLEMENT) metoprolol tartrate 100 mg tablet 100 mg PO BID Qty: 180 3RF losartan 100 mg tablet 100 mg PO QAM Qty: 90 3RF furosemide 40 mg tablet 40 mg PO QDAY Qty: 90 3RF atorvastatin 40 mg tablet 40 mg PO QDAY Qty: 90 3RF amlodipine 5 mg tablet 5 mg PO QHS Qty: 90 3RF potassium chloride 8 mEq capsule, extended release 8 meq PO DAILY Qty: 90 3RF Primary Care Provider: Jadyn Bowden Referrals: Clinton Carpenter MD [Med Staff - Active Staff] - Jadyn Bowden MD [Primary Care Provider] - Activity Restrictions/Additional Instructions: Please stop your Eliquis for the next 3 days as this will help with clotting andreturn of bleeding. Follow-up with ENT for repeat evaluation and return to the ER should you have any further concerns. Print Language: Citizen Of [place] What to do if you have Problems For any increased pain, shortness of breath, bleeding, nausea or vomiting, chestpain, or any unexpected problems, contact your Primary Care Provider. Call [facility] ([phone]) or report to the closest Emergency Room. Call 911 if necessary. 01/10/25 0800 <Electronically signed by Ruslan Salguero DO> Cosigner Signature (if applicable): CC: Dr. Jadyn Bowden MD ~ Signed [facility] Work Phone: Evaluation note* Diagnosis Abnormal prominence of clavicle- Primary Adjustment insomnia Transient disorder of initiating or maintaining sleep documented [facility] this encounter [facility]* Diagnosis BENIGN HYPERTENSION Essential hypertension, benign [facility] encounter [facility]* Diagnosis Onset Date Resolution Status History of coronary artery disease acute Intermittent chest pain acut e PAF (paroxysmal atrial fibrillation) chronic [facility] Work Phone: Evaluation note* Diagnosis Viral URI with cough- Primary Acute upper respiratory infections of unspecified site Laryngitis Acute laryngitis, without mention of obstruction [facility]* Diagnosis Acute cough- Primary Mixed hyperlipidemia Controlled type 2 diabetes mellitus without complication, without long-term current use of insulin (HCC) Viral URI with cough Acute upper respiratory infections of unspecified site Shortness of breath [facility]* Diagnosis Acute cough- Primary documented [facility]* Diagnosis Controlled type 2 diabetes mellitus without complication, without long-term current use of insulin (HCC)- Primary [facility]* Diagnosis Lower abdominal pain- Primary Abdominal pain, other specified site Dysuria Lichen planus UTI symptoms Other symptoms involving urinary system documented [facility] encounter [facility]* Diagnosis Lichen planus documented [facility] this [facility]* Diagnosis COELLO (dyspnea on exertion) Other dyspnea and respiratory abnormality Abnormal CXR Other nonspecific abnormal finding of lung field [facility]* Diagnosis Microalbuminuria- Primary Proteinuria documented [facility] this encounter [facility]* Diagnosis Medicare annual wellness visit, subsequent- Primary Routine general medical examination at a health care facility Controlled type 2 diabetes mellitus without complication, without long-term current use of insulin ([facility]) Lesion of skin of face Unspecified disorder of skin and subcutaneous tissue Skin lesion of chest wall Unspecified disorder of skin and subcutaneous tissue History of basal cell carcinoma (BCC) excision COELLO (dyspnea on exertion) Other dyspnea and respiratory abnormality BENIGN HYPERTENSION Essential hypertension, benign Mixed hyperlipidemia Renal infarct ([facility]) Vascular disorders of kidney Aortic mural thrombus ([facility]) Embolism and thrombosis of thoracic aorta Vitamin [...] of lung field documented [facility] this encounter [facility]* Diagnosis Acute cough Shortness of breath [facility] encounter [facility]* Diagnosis Abnormal prominence of clavicle documented [facility] this encounter [facility]* Diagnosis Injury of left foot, initial encounter documented in this encounter [facility]* Diagnosis Dysuria- Primary documented in this [facility]* Diagnosis Controlled type 2 diabetes mellitus without complication, without long-term current use of insulin ([facility])- Primary Microalbuminuria Proteinuria Mixed hyperlipidemia S/P coronary artery stent placement Postsurgical percutaneous transluminal coronary angioplasty status Primary hypertension Unspecified essential hypertension PAF (paroxysmal atrial fibrillation) ([facility]) Atrial fibrillation Vitamin D deficiency Unspecified vitamin D deficiency Encounter for immunization Need for other specified prophylactic vaccination against single bacterial disease Lichen planus documented in this encounter [facility]* Diagnosis UTI symptoms- Primary Other symptoms involving urinary system documented [facility] this encounter [facility]* Diagnosis UTI symptoms- Primary Other symptoms involving urinary system Positional lightheadedness Dizziness and giddiness documented in this encounter [facility]* Diagnosis Recurrent UTI- Primary Urinary tract infection, site not specified UTI symptoms Other symptoms involving urinary system Macular degeneration, unspecified laterality, unspecified type Self-care deficit documented in this encounter [facility]* Diagnosis Onset Date Resolution Status Admit Date Epistaxis acute December 28 10:31am Aortic valve stenosis chronic Aug ust 2024 10:31am Coronary artery disease chronic A ugust 2024 10:31am Essential hypertension chronic Au marlene 2024 10:31am PAF (paroxysmal atrial fibrillation) chronic December 28, 2024 10:31am Presence of stent in coronar y artery May, chronic December 28, 2024 10:31am Pulmonary hypertension chronic Au marlene 2024 10:31am Pure hypercholesterolemia chronic December 28, 2024 10:31am [facility] Work Phone: Evaluation note* Diagnosis Right leg pain- Primary Pain in limb Acute right ankle pain 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 Follow-up with ENT for repeat evaluation and return to the ER should you have any further concerns.[facility] Work Phone: Reason for referral (narrative)* Diagnostic Procedure Only (Routine) - Closed Specialty Diagnoses / Procedures Referred By Ruth bird Referred To Contact XR IMAGING Diagnoses Abnormal prominence of clavicle Procedures XR CLAVICLE 2V RIGHT RADEX CLAVICLE COMPLETE Jessie Hurt, FITTER MACHINIST.CURTAIN CUTTER HAND [address] [place] [address] Xr Imaging Referral ID Status Reason Start Date Expiration Date V isits Requested Visits Authorized [id number] Closed Auto-Generate d Referral 10/13/2021 11/12/2022 1 1 * Diagnostic Procedure Only (Routine) - Closed Specialty Diagnoses / Procedures Referred By Contac t Referred To Contact XR IMAGING Diagnoses Abnormal prominence of clavicle Procedures XR CLAVICLE 2V LEFT RADEX CLAVICLE COMPLETE Jessie Hurt APRN.CNS [address] [place] [address] Xr Imaging Referral ID Status Reason Start Date Expiration Date V isits Requested Visits Authorized [id number] Closed Auto-Generate d Referral 10/13/2021 11/12/2022 1 1 [facility] for referral (narrative)* Outpatient Procedure (Routine) - Closed Specialty Diagnoses / Procedures [facility] Diagnoses COELLO (dyspnea on exertion) Abnormal CXR Procedures LUNG DIFFUSION CAPACITY (DLCO) DIFFUSING CAPACITY Jadyn Bowden MD [address] [place] [address] Respiratory [place] [address] [place] [id number] Referral ID Status Reason Start Date Expiration Date V isits Requested Visits Authorized [id number] Closed Auto-Generate d Referral 12/14/2023 01/12/2025 1 1 * Outpatient Procedure (Routine) - Closed Specialty Diagnoses / [facility] Diagnoses COELLO (dyspnea on exertion) Abnormal CXR Procedures LUNG VOLUMES PLETHYSMOGRAPHY LUNG VOLUMES W/WO AIRWAY RESIST Jadyn Bowden MD [address] [place] [address] Res[facility] [place] [address] [place], [place] [id number] Referral ID Status Reason Start Date Expiration Date V isits Requested Visits Authorized [id number] Closed Auto-Generate d Referral 12/15/2023 05/22/2024 1 1 * Outpatient Procedure (Routine) - Closed Specialty Diagnoses / Procedures Referred By Contac t Referred To Contact [facility] Diagnoses COELLO (dyspnea on exertion) Abnormal CXR Procedures SPIROMETRY - BASELINE AND POST DILATOR BRNCDILAT RSPSE SPMTRY PRE&POST-BRNCDILAT ADMN Jadyn Bowden MD [address] [place] [address] [facility] [place] [address] [place] [address] Referral ID Status Reason Start Date Expiration Date V isits Requested Visits Authorized [id number] Closed Auto-Generate d Referral 12/14/2023 01/12/2025 1 1 * Transition of Care (Routine) - Ref Not Required Specialty Diagnoses / Procedures Referred By Contac t Referred To Contact Dermatology Diagnoses Lesion of skin of face Skin lesion of chest wall History of basal cell carcinoma (BCC) excision Procedures CONSULT TO DERMATOLOGY Jadyn Bowden MD [address] [place] [id number] Referral ID Status Reason Start Date Expiration Date Visits Requested Visits Authorized [id number] Ref Not Required PCP Requested Referral 12/14/2023 12/13/2024 1 1 [facility] for referral (narrative)* Diagnostic Procedure Only (Routine) - Closed Specialty Diagnoses / Procedures Referred By Contac t Referred To Contact XR IMAGING Diagnoses Abnormal prominence of clavicle Procedures XR CLAVICLE 2V RIGHT RADEX CLAVICLE COMPLETE Jessie Hurt, REJI.CURTAIN CUTTER HAND [address] [place] [address] Xr Imaging [facility] Referral ID Status Reason Start Date Expiration Date V isits Requested Visits Authorized [id number] Closed Auto-Generate d Referral 10/13/2021 11/12/2022 1 1 * Diagnostic Procedure Only (Routine) - Closed Specialty Diagnoses / Procedures Referred By Contac t Referred To Contact XR IMAGING Diagnoses Abnormal prominence of clavicle Procedures XR CLAVICLE 2V LEFT RADEX CLAVICLE COMPLETE Jessie Hurt APRN.CURTAIN CUTTER HAND [address] [place] [address] [place] [address] Referral ID Status Reason Start Date Expiration Date V isits Requested Visits Authorized [id number] Closed Auto-Generate d Referral 10/13/2021 11/12/2022 1 1 [facility] for referral (narrative)No reason for referral information availableWCleveland [facility] Work Phone: Reason for visit Narrative* Diagnostic Procedure Only (Routine) - Closed Specialty Diagnoses / Procedures Referred By Contac t Referred To Contact XR IMAGING Diagnoses Abnormal prominence of clavicle Procedures XR CLAVICLE 2V RIGHT RADEX CLAVICLE COMPLETE Jessie Hurt APRN.CURTAIN CUTTER HAND [address] [place] [address] [place] [address] Referral ID Status Reason Start Date Expiration Date V isits Requested Visits Authorized [id number] Closed Auto-Generate d Referral 10/13/2021 11/12/2022 1 1 [facility] for visit Narrative* Diagnostic Procedure Only (Urgent) - Closed Specialty Diagnoses / Procedures Referred By Contac t Referred To Contact XR IMAGING Diagnoses Right leg pain Acute right ankle pain Procedures XR TIBIA FIBULA 2V AP/LAT RIGHT RADIOLOGIC EXAMINATION TIBIA & FIBULA 2 VIEWS Jessie Hurt APRN.CURTAIN CUTTER HAND [address] [place] [address] Phone: tel: fax: [place] [address] Referral ID Status Reason Start Date Expiration Date V isits Requested Visits Authorized [id number] Closed Auto-Generate d Referral 01/17/2025 02/16/2026 1 1 [facility] Summary Purpose Family History No Family History [...] November 27, 2021 1 2:10am Power of Medical Sonographer Yes November 27, 2021 12:10am Name of Medical Power of Medical Sonographer Nancy JAIMES November 27, 2021 12:10am Advance Directive Response Recorded Date/ Time Advance Directives Yes June 20, 2015 2:11am Advance Directive Response Recorded Date/ Time Do you have a Healthcare Power of Medical Sonographer? No January 10, 2025 5:15am Advance Directives Yes June 20, 2015 2:11am [...] 06, 2024 1:20pm PAF (paroxysmal atrial fibrillation) [facility] 2024 1:20pm Presence of stent in coronary artery [facility] 2024 1:20pm Pulmonary hypertension August 06, 2024 1:20pm Pure hypercholesterolemia August 06 1:20pm Chief Complaint Admit Date Epitaxis December 28, 2024 10: 31am Reason for Visit Admit Date Epistaxis December 28, 2024 10: 31am Aortic valve stenosis December 28, 2024 1 0:31am Coronary artery disease December 28, 2024 10:31am Essential hypertension December 28, 2024 10:31am PAF (paroxysmal atrial fibrillation) [facility]2024 10:31am Presence of stent in [...] Presence of stent in coronary artery Dec 10:31am Pulmonary hypertension December 28, 2024 10:31am Pure hypercholesterolemia December 28 10:31am Chief Complaint Admit Date Epitaxis December 28, 2024 10: 31am E ORDERS December 28, 2024 11: 19am nose bleed January 10, 2025 5: 10am Additional Source Comments INFORMATION SOURCE (unrecogn ized section and content) DATE CREATED AUTHOR 11/09/2017 [facility] DATE CREATED AUTHOR AUTHOR'S ORGANIZ ATION 11/15/2017 [facility] DATE CREATED AUTHOR AUTHOR'S ORGANIZ ATION 01/16/2025 [facility] DATE CREATED AUTHOR AUTHOR'S ORGANIZ ATION 01/19/2025 [facility] Source Comments (unrecognize d section and content) In the event this informatio n is protected by the Federal Confidentiality of Alcohol and Drug Abuse Patient Records regulations: The Federal rules restrict any use of the information to criminally investigate or prosecute any alcohol or drug abuse patient.[facility] the event this information is protected by the Federal Confidentiality of Alcohol and Drug Abuse Patient Records regulations: The Federal rules restrict any use of the information to criminally investigate or prosecute any alcohol or drug abuse patient.[facility] HospitalIn the event this information is protected by the Federal Confidentiality of Alcohol and Drug Abuse Patient Records regulations: The Federal rules restrict any use of the information to criminally investigate or prosecute any alcohol or drug abuse patient.[facility] HospitalIn the event this information is protected by the Federal Confidentiality of Alcohol and Drug Abuse Patient Records regulations: The Federal rules restrict any use of the information to criminally investigate or prosecute any alcohol or drug abuse patient.[facility] HospitalIn the event this information is protected by the Federal Confidentiality of Alcohol and Drug Abuse Patient Records regulations: The Federal rules restrict any use of the information to criminally investigate or prosecute any alcohol or drug abuse patient.[facility] HospitalIn the event this information is protected by the Federal Confidentiality of Alcohol and Drug Abuse Patient Records regulations: The Federal rules restrict any use of the information to criminally investigate or prosecute any alcohol or drug abuse patient.[facility] HospitalIn the event this information is protected by the Federal Confidentiality of Alcohol and Drug Abuse Patient Records regulations: The Federal rules restrict any use of the information to criminally investigate or prosecute any alcohol or drug abuse patient.[facility] HospitalIn the event this information is protected by the Federal Confidentiality of Alcohol and Drug Abuse Patient Records regulations: The Federal rules restrict any use of the information to criminally investigate or prosecute any alcohol or drug abuse patient.[facility] HospitalIn the event this information is protected by the Federal Confidentiality of Alcohol and Drug Abuse Patient Records regulations: The Federal rules restrict any use of the information to criminally investigate or prosecute any alcohol or drug abuse patient.[facility] HospitalIn the event this information is protected by the Federal Confidentiality of Alcohol and Drug Abuse Patient Records regulations: The Federal rules restrict any use of the information to criminally investigate or prosecute any alcohol or drug abuse patient.[facility] HospitalIn the event this information is protected by the Federal Confidentiality of Alcohol and Drug Abuse Patient Records regulations: The Federal rules restrict any use of the information to criminally investigate or prosecute any alcohol or drug abuse patient.[facility] HospitalIn the event this information is protected by the Federal Confidentiality of Alcohol and Drug Abuse Patient Records regulations: The Federal rules restrict any use of the information to criminally investigate or prosecute any alcohol or drug abuse patient.[facility] HospitalIn the event this information is protected by the Federal Confidentiality of Alcohol and Drug Abuse Patient Records regulations: The Federal rules restrict any use of the information to criminally investigate or prosecute any alcohol or drug abuse patient.[facility] HospitalIn the event this information is protected by the Federal Confidentiality of Alcohol and Drug Abuse Patient Records regulations: The Federal rules restrict any use of the information to criminally investigate or prosecute any alcohol or drug abuse patient.[facility] HospitalIn the event this information is protected by the Federal Confidentiality of Alcohol and Drug Abuse Patient Records regulations: The Federal rules restrict any use of the information to criminally investigate or prosecute any alcohol or drug abuse patient.[facility] HospitalIn the event this information is protected by the Federal Confidentiality of Alcohol and Drug Abuse Patient Records regulations: The Federal rules restrict any use of the information to criminally investigate or prosecute any alcohol or drug abuse patient.[facility] HospitalIn the event this information is protected by the Federal Confidentiality of Alcohol and Drug Abuse Patient Records regulations: The Federal rules restrict any use of the information to criminally investigate or prosecute any alcohol or drug abuse patient.[facility] HospitalIn the event this information is protected by the Federal Confidentiality of Alcohol and Drug Abuse Patient Records regulations: The Federal rules restrict any use of the information to criminally investigate or prosecute any alcohol or drug abuse patient.[facility] HospitalIn the event this information is protected by the Federal Confidentiality of Alcohol and Drug Abuse Patient Records regulations: The Federal rules restrict any use of the information to criminally investigate or prosecute any alcohol or drug abuse patient.[facility] HospitalIn the event this information is protected by the Federal Confidentiality of Alcohol and Drug Abuse Patient Records regulations: The Federal rules restrict any use of the information to criminally investigate or prosecute any alcohol or drug abuse patient.[facility] HospitalIn the event this information is protected by the Federal Confidentiality of Alcohol and Drug Abuse Patient Records regulations: The Federal rules restrict any use of the information to criminally investigate or prosecute any alcohol or drug abuse patient.[facility] HospitalIn the event this information is protected by the Federal Confidentiality of Alcohol and Drug Abuse Patient Records regulations: The Federal rules restrict any use of the information to criminally investigate or prosecute any alcohol or drug abuse patient.[facility] HospitalIn the event this information is protected by the Federal Confidentiality of Alcohol and Drug Abuse Patient Records regulations: The Federal rules restrict any use of the information to criminally investigate or prosecute any alcohol or drug abuse patient.[facility] HospitalIn the event this information is protected by the Federal Confidentiality of Alcohol and Drug Abuse Patient Records regulations: The Federal rules restrict any use of the information to criminally investigate or prosecute any alcohol or drug abuse patient.[facility] HospitalIn the event this information is protected by the Federal Confidentiality of Alcohol and Drug Abuse Patient Records regulations: The Federal rules restrict any use of the information to criminally investigate or prosecute any alcohol or drug abuse patient.[facility] HospitalIn the event this information is protected by the Federal Confidentiality of Alcohol and Drug Abuse Patient Records regulations: The Federal rules restrict any use of the information to criminally investigate or prosecute any alcohol or drug abuse patient.[facility] HospitalIn the event this information is protected by the Federal Confidentiality of Alcohol and Drug Abuse Patient Records regulations: The Federal rules restrict any use of the information to criminally investigate or prosecute any alcohol or drug abuse patient.[facility] HospitalIn the event this information is protected by the Federal Confidentiality of Alcohol and Drug Abuse Patient Records regulations: The Federal rules restrict any use of the information to criminally investigate or prosecute any alcohol or drug abuse patient.[facility] HospitalIn the event this information is protected by the Federal Confidentiality of Alcohol and Drug Abuse Patient Records regulations: The Federal rules restrict any use of the information to criminally investigate or prosecute any alcohol or drug abuse patient.[facility] HospitalIn the event this information is protected by the Federal Confidentiality of Alcohol and Drug Abuse Patient Records regulations: The Federal rules restrict any use of the information to criminally investigate or prosecute any alcohol or drug abuse patient.[facility] HospitalIn the event this information is protected by the Federal Confidentiality of Alcohol and Drug Abuse Patient Records regulations: The Federal rules restrict any use of the information to criminally investigate or prosecute any alcohol or drug abuse patient.[facility] HospitalIn the event this information is protected by the Federal Confidentiality of Alcohol and Drug Abuse Patient Records regulations: The Federal rules restrict any use of the information to criminally investigate or prosecute any alcohol or drug abuse patient.[facility] HospitalIn the event this information is protected by the Federal Confidentiality of Alcohol and Drug Abuse Patient Records regulations: The Federal rules restrict any use of the information to criminally investigate or prosecute any alcohol or drug abuse patient.[facility] Reason for Visit (unrecogniz ed section and content) Reason Comments Lump Reason Comments Xray Results Reason Onset Date Comments Refill Request 11/02/2021 Reason Onset Date Comments Population Health Navigation Outreach 03/03/2022 HCC Reason Comments Cough Chest congestion, ru nny nose x 2 days Reason Comments URI Reason Comments Follow Up Reason Comments Results CXR Reason Comments Results Reason Onset Date Comments Population Health Navigation Outreach 07/14/2023 Med adherence Reason Comments uti symptoms Reason Comments Pharmacy Call Reason Comments Spirometry Specialty Diagnoses / Procedures Referred By Contac t Referred To Contact [facility] [place] Diagnoses COELLO (dyspnea on exertion) Abnormal CXR Procedures LUNG DIFFUSION CAPACITY (DLCO) DIFFUSING CAPACITY Jadyn Bowden MD [address] [place], [place] [id number] [place] [address] Referral ID Status Reason Start Date Expiration Date V isits Requested Visits Authorized [id number] Closed Auto-Generate d Referral 12/14/2023 01/12/2025 1 1 Specialty Diagnoses / Procedures Referred By Contac t Referred To Contact [facility] [place] Diagnoses COELLO (dyspnea on exertion) Abnormal CXR Procedures SPIROMETRY - BASELINE AND POST DILATOR BRNCDILAT RSPSE SPMTRY PRE&POST-BRNCDILAT ADMN Jadyn Bowden MD [address] [place], [place] [id number] [place] [address] Referral ID Status Reason Start Date Expiration Date V isits Requested Visits Authorized [id number] Closed Auto-Generate d Referral 12/14/2023 01/12/2025 1 1 Specialty Diagnoses / Procedures Referred By Contac t Referred To Contact [facility] Diagnoses COELLO (dyspnea on exertion) Abnormal CXR Procedures LUNG VOLUMES PLETHYSMOGRAPHY LUNG VOLUMES W/WO AIRWAY RESIST Jadyn Bodwen MD [address] [place] [address] [place] [address] Referral ID Status Reason Start Date Expiration Date V isits Requested Visits Authorized [id number] Closed Auto-Generate d Referral 12/15/2023 05/22/2024 1 1 Reason Comments results of labs and lung studies Reason Comments Medicare Wellness Exam Reason Comments Urinary Frequency with dysuria and pre ssurepain in lower pelvic area Reason Comments F/U 6 Month Reason Comments Results UTI Reason Comments UTI Reason Comments uti symptoms Reason Comments ED Follow-up 01/10/25 [facility] ER for n ose bleed. It was cauterized. Pt says cardiology is to tell her when to resume eliquis.Notes right ankle pain and leg since last evening Care Teams (unrecognized sec tion and content) Cook Roast Relationship Specialty Start Date End Date Jadyn Bowden MD [address] [facility] [place] [address] PCP - General Internal Medicine 05/26/21 Cook Roast Relationship Specialty Start Date End Date Jadyn Bowden MD [address] [place] [address], [place] [address] PCP - General Internal Medicine 05/26/21 Cook Roast Relationship Specialty Start Date End Date Jadyn Bowden MD [address] [place] [address], [place] [address] PCP - General Internal Medicine 05/26/21 Cook Roast Relationship Specialty Start Date End Date Jadyn Bowden MD [address] [place] [address], [place] [address] PCP - General Internal Medicine 05/26/21 Cook Roast Relationship Specialty Start Date End Date Jadyn Bowden MD [address] [place] [address], [place] [address] PCP - General Internal Medicine 05/26/21 Cook Roast Relationship Specialty Start Date End Date Jadyn Bowden MD [address] [place] [address], [place] [address] PCP - General Internal Medicine 05/26/21 Cook Roast Relationship Specialty Start Date End Date Jadyn Bowden MD [address] [place] [address], [place] [address] PCP - General Internal Medicine 05/26/21 Cook Roast Relationship Specialty Start Date End Date Jadyn Bowden MD [address] [facility] [place] [address] PCP - General Internal Medicine 05/26/21 Cook Roast Relationship Specialty Start Date End Date Jadyn Bowden MD [address] [facility] [place] [address] PCP - General Internal Medicine 05/26/21 Cook Roast Relationship Specialty Start Date End Date Jadyn Bowden MD [address] [facility] [place] [address] PCP - General Internal Medicine 05/26/21 Cook Roast Relationship Specialty Start Date End Date Jadyn Bowden MD [address] [facility] [place] [address] PCP - General Internal Medicine 05/26/21 Cook Roast Relationship Specialty Start Date End Date Jadyn Bowden MD [address] [facility] [place] [address] PCP - General Internal Medicine 05/26/21 Cook Roast Relationship Specialty Start Date End Date Jadyn Bowden MD [address] [facility] [place] [address] PCP - General Internal Medicine 05/26/21 Cook Roast Relationship Specialty Start Date End Date Jadyn Bowden MD [address] [facility] [place] [address] PCP - General Internal Medicine 05/26/21 Cook Roast Relationship Specialty Start Date End Date Jadyn Bowden MD [address] [facility] [place] [address] PCP - General Internal Medicine 05/26/21 Cook Roast Relationship Specialty Start Date End Date Whitney Quarles MD [address] [facility] [place] [address] PCP - General Internal Medicine 10/20/17 05/25/21 Cook Roast Relationship Specialty Start Date End Date Jadyn Bowden MD [address] [facility] [place] [address] PCP - General Internal Medicine 05/26/21 Jessie Hurt, FITTER MACHINIST.CURTAIN CUTTER HAND [address] [facility] [place] [address] Forest Bot[employer] Instructor Internal Medicine 04/30/24 Corine Block FITTER MACHINIST.CALL CENTER CONSULTANT [address] [place] [address] Forest Botany Instructor Internal Medicine 04/30/24 Cook Roast Relationship Specialty Start Date End Date Jadyn Bowden MD [address] [place] [address] PCP - General Internal Medicine 05/26/21 Jessie Hurt, FITTER MACHINIST.CURTAIN CUTTER HAND [address] [facility] [place] [address] Forest Botany Instructor Internal Medicine 04/30/24 Corine Block APRN.CALL CENTER CONSULTANT [address] [place] [address] Forest Botany Instructor Internal Medicine 04/30/24 Cook Roast Relationship Specialty Start Date End Date Jadyn Bowden MD [address] [place], [place] [id number] PCP - General Internal Medicine 05/26/21 Jessie Hurt, FITTER MACHINIST.CURTAIN CUTTER HAND [address] [place], [place] [address] [employer] Instructor Internal Medicine 04/30/24 Corine Block FITTER MACHINIST.CALL CENTER CONSULTANT [address] [facility] [place], [place] [address] Forest Botany Instructor Internal Medicine 04/30/24 Team Status: Active Member [...] August 06, 2024 End: August 06, 2024 Cook Roast Relationship Specialty Start Date End Date Jadyn Bowden MD [address] [facility] [place], [place] [id number] PCP - General Internal Medicine 05/26/21 Jessie Hurt, FITTER MACHINIST.CURTAIN CUTTER HAND [address] [facility] [place], [place] [id number] Forest Botany Instructor Internal Medicine 04/30/24 Corine Block APRN.CALL CENTER CONSULTANT [address] [facility] [place] [address] [facility] Internal Medicine 08/14/24 Cook Roast Relationship Specialty Start Date End Date Jadyn Bowden MD [address] [facility] [place] [address] PCP - General Internal Medicine 05/26/21 Jessie Hurt FITTER MACHINIST.CURTAIN CUTTER HAND [address] [facility] [place] [address] [facility] Internal Medicine 04/30/24 Corine Block APRN.CALL CENTER CONSULTANT [address] [facility] [place] [address] [facility] Internal Medicine 08/14/24 Cook Roast Relationship Specialty Start Date End Date Jadyn Bowden MD [address] [facility] [place] [address] PCP - General Internal Medicine 05/26/21 Corine Block APRN.CALL CENTER CONSULTANT [address] [facility] [place] [address] [facility] Internal Medicine 08/14/24 Jessie Hurt FITTER MACHINIST.CURTAIN CUTTER HAND [address] [facility] [place] [address] [facility] Internal Medicine 10/10/24 Cook Roast Relationship Specialty Start Date End Date Jadyn Bowden MD [address] [facility] [place] [address] PCP - General Internal Medicine 05/26/21 Corine Block APRN.CALL CENTER CONSULTANT [address] [facility] [place] [address] Forest [employer] Instructor Internal Medicine 08/14/24 Jessie Hurt, REJI.CURTAIN CUTTER HAND [address] [place] [address] Forest Botany Instructor Internal Medicine 10/10/24 Cook Roast Relationship Specialty Start Date End Date Jadyn Bowden MD [address] [facility] [place] [address] PCP - General Internal Medicine 05/26/21 Jessie Hurt APRN.CURTAIN CUTTER HAND [address] [facility] [place] [address] Forest Botany Instructor Internal Medicine 04/30/24 10/09/24 Corine Block APRN.CALL CENTER CONSULTANT [address] [facility] [place] [address] Forest Botany Instructor Internal Medicine 08/14/24 Jessie Hurt, REJI.CURTAIN CUTTER HAND [address] [place] [address] Forest Botany Instructor Internal Medicine 10/10/24 Cook Roast Relationship Specialty Start Date End Date Jadyn Bowden MD [address] [facility] [place] [address] PCP - General Internal Medicine 05/26/21 Corine Block APRN.CALL CENTER CONSULTANT [address] [facility] [place] [address] [employer] Internal Medicine 08/14/24 Jessie Hurt APRN.CURTAIN [employer]TER [employer] [address] [facility] [place] [address] [employer] Internal Medicine 10/10/24 Team Status: Active Member [...] 2024 End: December 28, 2024 Debbi Villanueva GRAIN SHOVELER, GRAIN SHOVELER-C Attending Provider Active Start: December 28, 2024 [...] 28, 2024 End: December 28, 2024 Deena Wynn PA, PA Other Provider Active Start: December 28, 2024 End: December 28, 2024 Team Status: Active Member Role/Relationship Status Dates Dr. Jadyn Bowden MD Primary Care Provider Active Team Status: Inactive Member Role/Relationship Status Dates Dr. Jadyn Bowden MD Primary Care Provider Active Start: January 10, 2025 End: January 10, 2025 Dr. Ruslan Salguero DO Emergency Provider Active Start: January 10, 2025 End: January 10, 2025 [employer] Relationship Specialty Start Date End Date Jadyn Bowden MD [address] [facility] [place], [place] [id number] PCP - General Internal Medicine 05/26/21 Corine Block APRN.CALL CENTER CONSULTANT [address] [facility] [place] [address] [employer] Internal Medicine 08/14/24 Jessie Hurt APRN.[employer] [address] [facility] [place] [address] [facility] Internal Medicine 10/10/24 [employer] Relationship Specialty Start Date End Date Jadyn Bowden MD [address] [facility] [place] [address] PCP - General Internal Medicine 05/26/21 Corine Block APRN.CALL CENTER CONSULTANT [address] [place] [address] [facility] Internal Medicine 08/14/24 Jessie Hurt APRN.[employer]TAIN [employer] [address] [place] [address] [facility] Internal Medicine 10/10/24 [employer] Relationship Specialty Start Date End Date Jadyn Bowden MD [address] [facility] [place] [address] PCP - General Internal Medicine 05/26/21 Corine Block APRN.CALL CENTER CONSULTANT [address] [place] [address] [facility] Internal Medicine 08/14/24 Jessie Hurt APRN.CURTAIN [employer] [address] [facility] [place] [address] [facility] Internal Medicine 10/10/24 Goals (unrecognized section and content) Goals may [...] BE BASED ON THE PRIMARY CLINICAL RECORDS. [facility]. provides no warranty or guarantee of the accuracy or completeness of information in this document.
[2025-01-20] MEDS: APIXABAN 2.5 MG TABLET (WCH) PO (14:23)
[2025-01-20 14:29] VITALS: BP 147/68; PULSE 71; RESP 16; TEMP 36.6; O2SAT 100
== END 2025-01-20 14:29 | disposition home or self-care (01) ==
PROVIDERS: Emergency Provider Emergency Medicine; PCP Internal Medicine; Visit Provider Emergency Medicine
DX: M79.661 Pain in right lower leg (principal); I48.0 Paroxysmal atrial fibrillation; E11.9 Type 2 diabetes mellitus without complications; I25.10 Atherosclerotic heart disease of native coronary artery without angina pectoris; I25.2 Old myocardial infarction; E78.00 Pure hypercholesterolemia, unspecified; I10 Essential (primary) hypertension; Z90.710 Acquired absence of both cervix and uterus; Z95.5 Presence of coronary angioplasty implant and graft; Z85.828 Personal history of other malignant neoplasm of skin; Z79.899 Other long term (current) drug therapy; Z90.722 Acquired absence of ovaries, bilateral
CPT/HCPCS: 93971; 99284

== ENCOUNTER → 2025-03-06 | Outpatient (CLI) | payer MEDICARE, SELFPAY ==
--- NOTE | 2025-03-06 12:57 | ADUL_ITS ---
Reason For Study Reason For Study: Rt POP A Embolism Right Velocities Int. Iliac Artery, dist = 117.9 cm./sec. Common Femoral Artery, mid = 152.8 cm./sec. Supf Femoral Artery, prox = 128.9 cm./sec. Supf Femoral Artery, mid = 96.5 cm./sec. Supf Femoral Artery, dist. = 60.0 cm./sec. Profunda Femoral Artery = 68.8 cm./sec. Popliteal Artery, prox. = 32.1 cm./sec. Popliteal Artery, mid = 169.7 cm./sec. Popliteal Artery, dist = 132.6 cm./sec. Post. Tibial Artery, prox = 39.3 cm./sec. Post. Tibial Artery, mid = 42.1 cm./sec. Post. Tibial Artery, dist = 33.7 cm./sec. Peroneal Artery, prox = 20.5 cm./sec. Peroneal Artery, mid = 23.5 cm./sec. Peroneal Artery,dist = 16.1 cm./sec. Ant. Tibial Artery, prox = 28.2 cm./sec. Ant. Tibial Artery, mid = 26.7 cm./sec. Ant. Tibial Artery, dist = 30.0 cm./sec. Arterial Thrombus noted in Rt Mid and Dist Popliteal Artery. Compare to previous study 01/20/2025. Procedure The exam was diagnostic. Exam performed in department. 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 Partial resolution of thrombus now with flow channel visualized. Ordering Physician: Lonnie Melendez Referring Physician: [place] Shen Performed By: Stalin Segura RVT and Student
--- NOTE | 2025-03-06 12:57 | ART_ITS ---
Reason For Study Reason For Study: Rt POP A Embolism Procedure A bilateral lower extremity continuous wave Doppler with analog waveform analysis and ankle brachial indexes. Left Segmental Pressures Left brachial= 145mmHg. Left posterior tibial artery = 134mmHg. Left dorsalis pedis artery = 120mmHg. Left digit = 94 mmHg. The left posterior tibial artery waveforms are triphasic. The left dorsalis pedis waveforms are triphasic. Right Segmental Pressures Right brachial= 156mmHg. Right posterior tibial artery = 120mmHg. Right dorsalis pedis artery = 115mmHg. Right digit = 83 mmHg. The right posterior tibial artery waveforms are biphasic. The right dorsalis pedis waveforms are biphasic. Indices The right ankle brachial index by the posterior tibial artery is 0.77. The right ankle brachial index by the dorsalis pedis is 0.74. The right digital-brachial index is 0.53. The left ankle brachial index by the posterior tibial artery is 0.86. The left ankle brachial index by the dorsalis pedis is 0.77. The left digital-brachial index is 0.60. VL/Ankle Brachial Index Interpretation Summary Right NIKIA 0.77, moderate arterial insufficiency. Doppler/PVR waveforms of the r ight ankle moderately diminished at rest. Left NIKIA 0.86, moderate arterial insufficiency. Doppler/PVR waveforms of the le ft ankle mildly diminished at rest. Ordering Physician: Lonnie Melendez Referring Physician: [place] Shen Performed By: Stalin Segura RVT and Student
== END | disposition home or self-care (01) ==
LOC: CVS 12:50
PROVIDERS: PCP Internal Medicine; Referring Provider Surgery Trauma Surgery; Visit Provider Surgery Trauma Surgery
DX: I74.3 Embolism and thrombosis of arteries of the lower extremities (principal)
CPT/HCPCS: 93922; 93926

== ENCOUNTER → 2025-04-01 | Outpatient (CLI) | payer MEDICARE, SELFPAY ==
--- NOTE | 2025-04-01 07:20 | ECHOD_ITS ---
Reason For Study ECHO/Echo Complete
--- NOTE | 2025-04-01 13:45 | STRESSREP_ITS ---
Stress Test Report
--- NOTE | 2025-04-01 13:45 | STRESSREP ---
Stress Test Report Date: 04/01/2025 Procedure: Pharmacologic stress nuclear imaging study Indications: Dyspnea Consent: Per the patient Procedure: The patient underwent pharmacologic (Regadenoson 0.4mg ) evaluation with a peak heart rate of 93 beats per minute (70%predicted maximal heart rate) and a peak blood pressure of 150/72 mmHg. The baseline ECG demonstrated atrial fibrillation with frequent PVCs. The peak pharmacologic ECG failed to show any diagnostic ischemic changes. Frequent PVCs noted pretest and in recovery. There was no complaint of chest discomfort during pharmacologic infusion or recovery. The patient was injected with 11.0 millicuries of technetium 99m Cardiolite and subsequently rest SPECT Cardiolite nuclear imaging was obtained in the horizontal long, vertical long, and short axis views. The patient underwent pharmacologic (Regadenoson) evaluation. The patient was injected with 33.9 millicuries of technetium 99m Cardiolite and subsequently stress SPECT Cardiolite nuclear imaging was obtained in the horizontal long, vertical long, and short axis views. A gated Cardiolite study at peak stress was obtained. The examination was stopped secondary to completion of protocol. Rest and stress SPECT Cardiolite nuclear imaging status post realignment, normalization, and attenuation correction demonstrate no fixed or reversible perfusion defects. There is end systolic thickening and brightening. The gated Cardiolite study demonstrates myocardial thickening and inward wall motion. The reported LVEF is 88%. Impression: 1. Pharmacologic (Regadenoson) evaluation 2. Peak pharmacologic ECG with no ischemic changes. 3. PVCs noted pretest and after pharmacologic infusion. 5. Rest and stress SPECT Cardiolite nuclear imaging demonstrate relative uniform tracer uptake and myocardial perfusion appearing within normal limits. 6. The gated Cardiolite study reports an LVEF of 88%. This note was generated with [employer] software. It may contain incorrect words, spelling, and punctuation that were not noted in checking the note before signing.
== END | disposition home or self-care (01) ==
PROVIDERS: PCP Internal Medicine; Referring Provider Internal Medicine Cardiovascular Disease; Visit Provider Internal Medicine Cardiovascular Disease
DX: R06.02 Shortness of breath (principal); I27.20 Pulmonary hypertension, unspecified; I25.10 Atherosclerotic heart disease of native coronary artery without angina pectoris; I35.0 Nonrheumatic aortic (valve) stenosis; I10 Essential (primary) hypertension; Z95.5 Presence of coronary angioplasty implant and graft
CPT/HCPCS: 78452; 93017; 93306; A9500; A4216; J2785